=== PATIENT | male | born 1955 | race Caucasian/White ===

== ENCOUNTER 2020-02-16 09:59 | Emergency (ER) | payer MEDICARE, SELFPAY ==
[2020-02-16 10:04] VITALS: PULSE 54; RESP 16; TEMP 36.9; O2SAT 97; BMI 28.4
--- NOTE | 2020-02-16 10:15 | CT_ITS ---
EXAMINATION: CTA OF THE HEAD AND NECK CLINICAL INFORMATION: Headache and confusion. COMPARISON: Head CT from 11/28/2018. TECHNIQUE: Test bolus sequences followed by intravenous administration 70 mL of Omnipaque 350. Helical imaging was performed in the axial plane from the mediastinum to the skull vertex. Delayed postcontrast imaging of the head was also performed. The data was processed at the electroneurodiagnostic technologist's workstation for generation of MIP sequences. Three-dimensional volume rendered reformatted images were also generated at an offline 3-D workstation. Stenoses are assessed in accordance with NASCET criteria unless otherwise indicated. This CT examination was performed using dose optimization techniques as appropriate, variously including the following: *Automated exposure control *Adjustment of mA and/or kV according to patient size (this includes techniques or standardized protocols for targeted exams where dose is matched to indication/reason for exam; i.e. extremities or head) *Use of iterative reconstruction technique DLP: 1731 mGy-cm. FINDINGS: CT head: There is no evidence of acute intracranial hemorrhage or territorial infarction. There is no loss of cruz to white matter differentiation. No abnormal mass effect or midline shift is seen. No extra-axial fluid collections are identified. There is no abnormal enhancement. The ventricles are normal in size. There is no abnormal attenuation within the brain parenchyma. The osseous structures and soft tissues are normal. The mastoid air cells and visualized portions of the paranasal sinuses are well aerated. CTA neck: The imaged aortic arch and origins of the great vessels are normal. The common carotid arteries are widely patent. The carotid bifurcations are normal. The cervical internal carotid arteries are normal. The vertebral arteries opacify normally and are of normal caliber. The soft tissues of the neck are unremarkable. Moderate disc space narrowing with mild endplate osteophyte formation evident at the C5-C6 level. Mild right apical blebs visible. Mild bilateral subsegmental atelectasis within the lungs. CTA head: The intradural vertebral arteries and basilar artery are normal. The posterior cerebral arteries are widely patent. The internal carotid arteries are of normal caliber. The ANTONI and MCA vascular complexes bilaterally are normal. The venous sinuses opacify normally. CT/CT angio head IMPRESSION: Normal CT angiogram of the head and neck. No vessel occlusion or significant stenosis. Imaging findings reported to Dr. Church at 11:25 AM on 02/16/2020
--- NOTE | 2020-02-16 10:15 | XR_ITS ---
EXAMINATION: XR CHEST CLINICAL INFORMATION: Stroke like symptoms. Rule out pneumonia. COMPARISON: Previous chest x-ray July 2018 TECHNIQUE: Frontal view of the chest was obtained. FINDINGS: The cardiac and mediastinal contours are normal. The lungs are clear. There is no pleural effusion or pneumothorax. There are degenerative changes of the spine. XR/XR chest 1V IMPRESSION: No evidence for acute disease in the chest.
--- NOTE | 2020-02-16 10:15 | CT_ITS ---
EXAMINATION: CTA OF THE HEAD AND NECK CLINICAL INFORMATION: Headache and confusion. COMPARISON: Head CT from 11/28/2018. TECHNIQUE: Test bolus sequences followed by intravenous administration 70 mL of Omnipaque 350. Helical imaging was performed in the axial plane from the mediastinum to the skull vertex. Delayed postcontrast imaging of the head was also performed. The data was processed at the medical office technologist's workstation for generation of MIP sequences. Three-dimensional volume rendered reformatted images were also generated at an offline 3-D workstation. Stenoses are assessed in accordance with NASCET criteria unless otherwise indicated. This CT examination was performed using dose optimization techniques as appropriate, variously including the following: *Automated exposure control *Adjustment of mA and/or kV according to patient size (this includes techniques or standardized protocols for targeted exams where dose is matched to indication/reason for exam; i.e. extremities or head) *Use of iterative reconstruction technique DLP: 1731 mGy-cm. FINDINGS: CT head: There is no evidence of acute intracranial hemorrhage or territorial infarction. There is no loss of cruz to white matter differentiation. No abnormal mass effect or midline shift is seen. No extra-axial fluid collections are identified. There is no abnormal enhancement. The ventricles are normal in size. There is no abnormal attenuation within the brain parenchyma. The osseous structures and soft tissues are normal. The mastoid air cells and visualized portions of the paranasal sinuses are well aerated. CTA neck: The imaged aortic arch and origins of the great vessels are normal. The common carotid arteries are widely patent. The carotid bifurcations are normal. The cervical internal carotid arteries are normal. The vertebral arteries opacify normally and are of normal caliber. The soft tissues of the neck are unremarkable. Moderate disc space narrowing with mild endplate osteophyte formation evident at the C5-C6 level. Mild right apical blebs visible. Mild bilateral subsegmental atelectasis within the lungs. CTA head: The intradural vertebral arteries and basilar artery are normal. The posterior cerebral arteries are widely patent. The internal carotid arteries are of normal caliber. The ANTONI and MCA vascular complexes bilaterally are normal. The venous sinuses opacify normally. CT/CT angio neck IMPRESSION: Normal CT angiogram of the head and neck. No vessel occlusion or significant stenosis. Imaging findings reported to Dr. Church at 11:25 AM on 02/16/2020
--- NOTE | 2020-02-16 10:15 | CT_ITS ---
EXAMINATION: CT HEAD WITHOUT CONTRAST (STROKE PROTOCOL) CLINICAL INFORMATION: Stroke protocol. Posterior headache and off-balance COMPARISON: Previous head CT April 2018 TECHNIQUE: Contiguous axial imaging was performed from the skull base to vertex without intravenous administration of contrast. This CT examination was performed using dose optimization techniques as appropriate, variously including the following: *Automated exposure control *Adjustment of mA and/or kV according to patient size (this includes techniques or standardized protocols for targeted exams where dose is matched to indication/reason for exam; i.e. extremities or head) *Use of iterative reconstruction technique DLP: 786 mGy-cm FINDINGS: There is no intracranial hemorrhage, hematoma, or extra-axial fluid collection. The ventricles are normal in size. There is no hydrocephalus, edema, or mass effect. The cruz-white matter differentiation appears symmetric. There is no acute infarct or mass lesion. The calvarium appears intact. There is no pneumocephalus or orbital emphysema. The visualized sinuses and middle ears and mastoid air cells show no significant mucosal thickening. There are no air-fluid levels. CT/CT head for stroke IMPRESSION: Unremarkable exam. This critical result was discussed with Dr. Church at 1028 hours on 02/16/2020. It was ascertained that the content and urgency of the report was understood at the time of direct communication.
--- NOTE | 2020-02-16 10:15 | ECG_ITS ---
Test Reason : WEAKNESS Blood Pressure : / mmHG Vent. Rate : 052 BPM Atrial Rate : 052 BPM P-R Int : 190 ms QRS Dur : 086 ms QT Int : 452 ms P-R-T Axes : 044 040 044 degrees QTc Int : 420 ms Sinus bradycardia Otherwise normal ECG When compared with ECG of 28-NOV-2018 21:03, No significant change was found Referred By: Eliazar Church Electronically Signed By:JOSH PABON
[2020-02-16] MEDS: iohexoL 350 MG/ML 100 ML INFUS..BTL IV (11:08)
[2020-02-16 11:14] LABS: MANUAL DIFF FLAG NO
[2020-02-16 11:16] LABS: Basophils Percent Auto 0.5 % (0-2); Eosinophils Absolute Auto 0.1 X10*3/uL (0.0-0.4); Eosinophils Percent Auto 1.7 % (0-4); Hematocrit 38.8 % (42-52); Hemoglobin 13.3 g/dl (14.0-18.0); Imm Gran Abs Auto 0.01 X10*3/uL (0.00-0.03); Imm Gran Pct Auto 0.2 % (0.0-0.4); Lymphocytes Absolute Auto 1.9 X10*3/uL (1.2-4.9); Lymphocytes Percent Auto 28.4 % (20-40); Mean Corpuscular HGB Conc 34.3 g/dl (31.0-36.0); Mean Corpuscular Hemoglobin 31.2 pg (27.0-33.0); Mean Corpuscular Volume 91.1 fL (80-98); Mean Platelet Volume 10.5 fL (9.4-12.4); Monocytes Absolute Auto 0.6 X10*3/uL (0.1-1.2); Monocytes Percent Auto 8.5 % (2-11); Neutrophils Percent Auto 60.7 % (45-73); Platelet Count 172 X10*3/uL (160-400); Red Blood Count 4.26 X10*6/uL (4.60-5.80); Red Cell Distribution Width 12.4 % (11.0-16.0); White Blood Count 6.6 X10*3/uL (4.8-10.8)
[2020-02-16 11:24] LABS: Partial Thromboplastin Time 33.7 SEC (24.1-38.0)
[2020-02-16 11:39] LABS: Ethanol < 10 mg/dL
[2020-02-16 11:43] LABS: Alanine Aminotransferase 31 U/L (0-40); Albumin Level 3.9 g/dL (3.5-5.0); Alkaline Phosphatase 54 U/L (39-117); Anion Gap 10 (12-20); Aspartate Amino Transferase 25 U/L (5-37); Bilirubin Direct 0.2 mg/dL (0.0-0.5); Bilirubin Total 0.4 mg/dL (0.0-1.0); Blood Urea Nitrogen 16 mg/dL (9-16); Calcium 8.3 mg/dL (8.4-10.2); Carbon Dioxide 26 mmol/L (22-29); Chloride 105 mmol/L (96-108); Creatinine Clr Calc Pharmacy 89.9; Estimated Glomerular Filt Rate > 60; Glucose Random 82 mg/dL (60-115); Potassium 4.3 mmol/l (3.3-5.1); Sodium 137 mmol/L (135-145); Total Protein 6.4 g/dL (6.5-8.0)
[2020-02-16 11:49] LABS: Troponin-I High Sensitivity < 3.5 ng/L (<3.5-35.0)
[2020-02-16 12:00] LABS: Stroke Lab Use COMPLETE
--- NOTE | 2020-02-16 12:07 | ED.GENADULT ---
HPI - General Adult General Chief complaint: Altered Mental Status Stated complaint: feeling disoriented Time Seen by Provider: 02/16/20 10:15 Source: patient and family (, Carlyn) Mode of arrival: ambulatory Limitations: no limitations History of Present Illness HPI narrative: 64-year-old male who was brought emergency department for evaluation of stroke-like symptoms. Information came from the patient and the patient's . The patient has a history of multiple strokes that usually present with headache and confusion. The patient woke up at 2:00 a.m. to walk the dog. He seemed to be confused according to the . The patient went to sleep and then woke up again at 4:00 a.m. with confusion. He was pacing in the halls. He told his that ?something happened and ?I have got to go ?. The patient also appeared to be off balance. He complained of a posterior headache which his states he has had in the past with his strokes. The patient points to the septal area of his head and describes the pain as a throbbing sensation which is constant and moderate in intensity. The patient's symptoms persisted. The patient spoke to his providers at the [facility] and he was advised to go to hospital for evaluation of possible stroke. The patient denied fever, chills, cough, chest pain, shortness of breath, abdominal pain, changes bowel movements, loss of sense of taste or smell. The patient has no known COVID-19 exposures. The patient states that he has residual right arm and right leg weakness from his previous strokes. Related Data Allergies Allergy/AdvReac Type Severity Reaction Status Date / Time dog dander [DOGS] Allergy Mild ITCHY EYES Unverified 11/05/19 15:22 metformin [METFORMIN] Allergy Unknown KIDNEY Unverified 11/05/19 15:22 FAILURE, anaphylaxis Cat/Feline Product Allergy Mild RUNNY NOSE Uncoded 11/05/19 15:22 Derivatives Review of Systems Review of Systems: Yes all other systems are reviewed and are negative Constitutional: Constitutional: Reports as per HPI Eyes: Eyes: Reports as per HPI ENT: Reports as per HPI Cardiovascular: Cardiovascular: Reports as per HPI Respiratory: Respiratory: Reports as per HPI Gastrointestinal: Gastrointestinal: Reports as per HPI Genitourinary: Genitourinary: Reports as per HPI Musculoskeletal: Musculoskeletal: Reports as per HPI Integumentary/Breasts: Skin/Breast: Reports as per HPI Neurologic: Reports as per HPI and Reports Abnormal speech present Psychiatric: Psychiatric: Reports as per HPI Allergic/Immunologic: Allergic/Immunologic: Reports as per HPI [facility] Past Medical History Medical History Bleeding ulcer High cholesterol HTN (hypertension) Hypoglycemia Kidney failure Stroke Surgical History Hx of heart artery stent Social History Social History Advance Directives: No Advance Directives Information Provided: Yes Physical Exam Vital Signs: Vital Signs: Last Vital Signs Temp 98 F 02/16/20 13:09 Pulse 51 02/16/20 13:09 Resp 17 02/16/20 13:09 BP 156/93 H 02/16/20 13:09 Pulse Ox 95 02/16/20 13:09 Body Mass Index 28.4 Const: General: cooperative and no acute distress Orientation/consciousness: oriented to person and oriented to place Limitations: no limitations HENMT: Head: Yes normal to inspection, Yes normocephalic and Yes atraumatic Ears: external ears normal General nose exam: Normal external nose present Face and sinus: Yes normal facial exam Mouth: Normal oral and palatal mucosa present Throat: Yes posterior oropharynx normal Eyes: Periorbital: periorbital findings normal Eyelids: Yes eyelids normal Conjunctivae: conjunctivae normal Sclerae: sclerae normal Corneas: corneas normal Pupils: Equal, round and reactive pupils present Direct Ophthalmoscopy: normal light reflex Neck: Neck: Yes full ROM, Yes no lymphadenopathy, Yes no meningeal signs, Yes trachea midline and Yes supple Chest: Chest palpation & inspection: normal inspection of the chest and normal palpation of entire chest wall Resp: Effort & Inspection: normal respiratory effort and able to speak in complete sentences Auscultation: clear to auscultation bilaterally Cardio: Rate: regular rate Rhythm: regular rhythm Heart sounds: S1 normal heart sound present, S2 normal heart sound present and no murmurs GI: Inspection: Yes normal to inspection Palpation (GI): Soft to palpation, nontender, no guarding, not rigid and No hepatosplenomegaly present : General: Yes no CVA tenderness Back/Spine/Pelvis: Back: no CVA tenderness Cervical Spine: normal cervical lordosis Thoracic/Lumbar Spine: thoracic and lumbar spine normal to inspection Skin: Lesions: no lesions Rashes: no rashes Wounds: no wounds Neuro: General: oriented to person, oriented to place and no meningeal signs Cranial nerves: Yes Equal, round and reactive pupils present Cognition (Neuro): normal cognition Speech: Abnormal speech present Motor exam (neuro): Other motor observations present (Slight weakness of the right upper and right lower extremity compared to th) Extrem: General: Yes normal to inspection and Yes full ROM Psych: Appearance: well kempt Mental Status: mental status grossly normal Speech and movement: Normal speech and movement present Affect: normal affect Attitude: cooperative Thought process: Normal thought process present Thought content: Normal thought content present NIH Stroke Scale Internal: Initial- Upon Arrival Level of Consciousness: Alert Level of Consciousness Questions: Answers both questions correctly Level of Consciousness Commands: Performs both tasks correctly Best Gaze: Normal Visual: No visual loss Facial Palsy: Normal Motor Arm (Right): No drift Motor Arm (Left): No drift Motor Leg (Right): No drift Motor Leg (Left): No drift Limb Ataxia: Absent Sensory: Normal Best Language: No aphasia Dysarthia: Normal Extinction and Inattention: No abnormality Score: 0 Course Course Course Narrative: 64-year-old male with a history of multiple strokes in the past with residual right upper and lower extremity weakness from previous strokes who presents to the emergency department for evaluation of posterior headache, confusion and difficulty with his balance which began at 2:00 a.m. on the day of arrival. According to the patient and his , these symptoms are similar to his previous stroke-like symptoms. The patient's physical examination did reveal some slight weakness of the right upper and right lower extremity compared to the left however his NIH stroke scale was 0. The patient's CT scan of the head revealed no acute stroke or bleeding. CTA of the head and neck revealed no acute clot or other abnormality. Laboratory evaluation reveals slight elevation in the CK of 302. I did discuss the patient's presentation with the covering neurologist Dr. Skelton who recommended the patient be admitted for MRI and further evaluation for possible stroke. I did discuss this with the patient and his and they agree to admission. I will discuss the patient's presentation with the covering hospitalist. 1323: I did discuss the patient's presentation with the covering hospitalist, nurse practitioner jesus Barker. She evaluated the patient in the patient would like to go home at this time. I did re-evaluate the patient. The patient is back to his baseline. This time, I do believe that the patient can be discharged home and he does agree to return to emergency department if his symptoms get worse or he develops any new symptoms that are concerning to him or his . Medical Decision Making Lab Data Result diagrams: 02/16/20 11:02/16/20 11:09 Labs: Lab Results 02/16/20 02/16/20 02/16/20 Range/Units 11:09 11:09 11:09 WBC 6.6 (4.8-10.8) X10*3/uL RBC 4.26 L (4.60-5.80) X10*6/uL Hgb 13.3 L (14.0-18.0) g/dl Hct 38.8 L (42-52) % MCV 91.1 (80-98) fL MCH 31.2 (27.0-33.0) pg MCHC 34.3 (31.0-36.0) g/dl RDW 12.4 (11.0-16.0) % Plt Count 172 (160-400) X10*3/uL MPV 10.5 (9.4-12.4) fL Immature Gran % (Auto) 0.2 (0.0-0.4) % Neut % (Auto) 60.7 (45-73) % Lymph % (Auto) 28.4 (20-40) % [place] % (Auto) 8.5 (2-11) % Eos % (Auto) 1.7 (0-4) % Baso % (Auto) 0.5 (0-2) % Lymph # (Auto) 1.9 (1.2-4.9) X10*3/uL [place] # (Auto) 0.6 (0.1-1.2) X10*3/uL Eos # (Auto) 0.1 (0.0-0.4) X10*3/uL Baso # (Auto) 0.0 (0.0-0.2) X10*3/uL Abs Immat Gran (auto) 0.01 (0.00-0.03) X10*3/uL Absolute Neuts (auto) 4.0 (2.0-8.3) X10*3/uL Absolute Nucleated RBC 0.000 (0.0-0.012) X10*3/uL Nucleated RBC % (auto) 0.0 (0.0-0.2) /100WBC PT 12.0 (10.8-13.0) SEC INR 1.0 (0.9-1.1) APTT 33.7 (24.1-38.0) SEC Sodium 137 (135-145) mmol/L Potassium 4.3 (3.3-5.1) mmol/l Chloride 105 (96-108) mmol/L Carbon Dioxide 26 (22-29) mmol/L Anion Gap 10 L (12-20) BUN 16 (9-16) mg/dL Creatinine 0.99 (0.5-1.4) mg/dL Estim Creat Clear Calc 89.9 Estimated GFR > 60 POC Glucose (60-115) mg/dL Random Glucose 82 (60-115) mg/dL Calcium 8.3 L (8.4-10.2) mg/dL Total Bilirubin 0.4 (0.0-1.0) mg/dL Direct Bilirubin 0.2 (0.0-0.5) mg/dL AST 25 (5-37) U/L ALT 31 (0-40) U/L Alkaline Phosphatase 54 (39-117) U/L Total Creatine Kinase 302 H (38-174) U/L Troponin I High Sens (<3.5-35.0) ng/L Total Protein 6.4 L (6.5-8.0) g/dL Albumin 3.9 (3.5-5.0) g/dL Ethyl Alcohol mg/dL 02/16/20 02/16/20 02/16/20 Range/Units 11:09 11:09 13:08 WBC (4.8-10.8) X10*3/uL RBC (4.60-5.80) X10*6/uL Hgb (14.0-18.0) g/dl Hct (42-52) % MCV (80-98) fL MCH (27.0-33.0) pg MCHC (31.0-36.0) g/dl RDW (11.0-16.0) % Plt Count (160-400) X10*3/uL MPV (9.4-12.4) fL Immature Gran % (Auto) (0.0-0.4) % Neut % (Auto) (45-73) % Lymph % (Auto) (20-40) % [place] % (Auto) (2-11) % Eos % (Auto) (0-4) % Baso % (Auto) (0-2) % Lymph # (Auto) (1.2-4.9) X10*3/uL [place] # (Auto) (0.1-1.2) X10*3/uL Eos # (Auto) (0.0-0.4) X10*3/uL Baso # (Auto) (0.0-0.2) X10*3/uL Abs Immat Gran (auto) (0.00-0.03) X10*3/uL Absolute Neuts (auto) (2.0-8.3) X10*3/uL Absolute Nucleated RBC (0.0-0.012) X10*3/uL Nucleated RBC % (auto) (0.0-0.2) /100WBC PT (10.8-13.0) SEC INR (0.9-1.1) APTT (24.1-38.0) SEC Sodium (135-145) mmol/L Potassium (3.3-5.1) mmol/l Chloride (96-108) mmol/L Carbon Dioxide (22-29) mmol/L Anion Gap (12-20) BUN (9-16) mg/dL Creatinine (0.5-1.4) mg/dL Estim Creat Clear Calc Estimated GFR POC Glucose 80 (60-115) mg/dL Random Glucose (60-115) mg/dL Calcium (8.4-10.2) mg/dL Total Bilirubin (0.0-1.0) mg/dL Direct Bilirubin (0.0-0.5) mg/dL AST (5-37) U/L ALT (0-40) U/L Alkaline Phosphatase (39-117) U/L Total Creatine Kinase (38-174) U/L Troponin I High Sens < 3.5 (<3.5-35.0) ng/L Total Protein (6.5-8.0) g/dL Albumin (3.5-5.0) g/dL Ethyl Alcohol < 10 mg/dL Discharge Plan Discharge Clinical Impression: Brain TIA Altered mental status Qualifiers: Altered mental status type: unspecified Qualified Code(s): R41.82 - Altered mental status, unspecified Patient Disposition: Home, Self-Care Instructions: Transient Ischemic Attack (ED) Additional Instructions: The CT scan of your head revealed no bleeding or large stroke at this time. The CTA head and neck with contrast revealed no large blood clots causing a stroke. Your blood work was unremarkable. At this time, it is possible that you may have had a small stroke versus a transient ischemic attack. Since your symptoms have completely resolved and you have been worked up multiple times in the past for a stroke, I believe it is safe to send you home and you can follow-up with your doctor for further evaluation and treatment. Follow-up with your doctor in 2 days. Please return to the emergency department if your symptoms get worse or if you develop any symptoms that are concerning to you.
[2020-02-16 13:09] VITALS: BP 156/93; PULSE 51; RESP 17; TEMP 36.6; O2SAT 95
[2020-02-16 13:15] LABS: Glucose, Whole Blood 80 mg/dL (60-115)
== END 2020-02-18 09:04 | disposition home or self-care (01) ==
PROVIDERS: Emergency Provider Emergency Medicine Emergency Medical Services; PCP Internal Medicine
DX: G45.9 Transient cerebral ischemic attack, unspecified (principal); R41.82 Altered mental status, unspecified; I10 Essential (primary) hypertension; Z79.899 Other long term (current) drug therapy
CPT/HCPCS: 36415; 70450; 70496; 70498; 71045; 80048; 80076; 80320; 82550; 82947; 84484; 85025; 85610; 85730; 93005; 99283; 99284; Q9967

== ENCOUNTER 2021-03-13 11:07 | Day surgery (SDC) | payer MEDICARE, SELFPAY ==
[2021-03-07 14:09] VITALS: BMI 33.5
--- NOTE | 2021-03-10 10:03 | HO.ANESPROP2 ---
Documented by User: Teresa Ambrocio NP 03/10/21 10:04 HPI - Anesthesia Eval Consult details Narrative: 65yo M for Upper Endoscopy [facility] Past Medical History Medical History Back pain Bleeding ulcer Chronic renal insufficiency High cholesterol HTN (hypertension) Hypoglycemia Myocardial infarction Neurostimulator device in situ Sleep apnea Stroke Surgical History Surgical History History of back surgery History of colon surgery History of esophagogastroduodenoscopy (EGD) Hx of abdominal surgery Hx of gastric bypass Hx of hand surgery Hx of heart artery stent Hx of hernia repair Hx of knee surgery Social History Social History Are you a primary outdoor emergency care technician to a significant other at home: No Do you presently have visiting nurse or other home services: No Patient Tobacco Use Status: Former Tobacco user Quit Date: >10 yr ago Tobacco use type: Cigarette Use of substances other than those prescribed or required for medical reasons: No Have you been hit, kicked, punched, or otherwise hurt by someone within the past year? If so, by whom?: No Advance Directives: Yes (is his ) Advance Directives Information Provided: Yes Advance Directives on File: Yes Advance Directives Date on File: 08/05/18 Meds Allergies Allergy/AdvReac Type Severity Reaction Status Date / Time animal dander Allergy Intermediate itchy eyes Verified 03/07/21 10:58 / runny nose metformin [METFORMIN] Allergy Unknown KIDNEY Verified 03/13/21 11:38 FAILURE, anaphylaxis Home Medications Medication Instructions Recorded Confirmed Last Taken Type aspirin 81 mg tablet,delayed 81 mg PO DAILY 03/07/21 03/13/21 03/12/21 History release atorvastatin 40 mg tablet 40 mg PO BEDTIME 03/07/21 03/07/21 Unknown History clopidogrel 75 mg tablet 75 mg PO DAILY 03/07/21 03/13/21 03/09/21 History dicyclomine 10 mg capsule 10 mg PO QID 03/07/21 03/07/21 Unknown History ferrous gluconate 256 mg (28 mg 256 mg PO DAILY 03/07/21 03/07/21 Unknown History iron) tablet fluoxetine 20 mg tablet 20 mg PO DAILY 03/07/21 03/07/21 Unknown History gabapentin 400 mg tablet 1,200 mg PO TID 03/07/21 03/07/21 Unknown History magnesium oxide 400 mg PO DAILY 03/07/21 03/07/21 Unknown History methocarbamol 750 mg tablet 750 mg PO BID PRN 03/07/21 03/07/21 Unknown History metoprolol tartrate 25 mg tablet 1 tab PO BID 03/07/21 03/13/21 03/13/21 07:00 History multivitamin 1 tab PO DAILY 03/07/21 03/07/21 Unknown History omega-3 fatty acids-fish oil 684 1 cap PO DAILY 03/07/21 03/07/21 Unknown History mg-1,200 mg capsule,delayed release omeprazole 40 mg capsule,delayed 40 mg PO TID 03/07/21 03/07/21 Unknown History release sucralfate 1 gram tablet 1 g PO BID 03/07/21 03/07/21 Unknown History trazodone 100 mg tablet 100 mg PO BEDTIME 03/07/21 03/07/21 Unknown History Exam Exam Date and Time: March 10, 2021 1003 Height,Weight and Vital Signs: Height 5 ft 11 in Weight 108.862 kg Assessment and Plan Assessment Anesthesia Assessment: Chart Reviewed Documented by User: Andrew Glasgow MD 03/13/21 12:26 [facility] Past Medical History Medical History Back pain Bleeding ulcer Chronic renal insufficiency High cholesterol HTN (hypertension) Hypoglycemia Myocardial infarction Neurostimulator device in situ Sleep apnea Stroke Family History Family history of problems with anesthesia: No Surgical History Surgical History History of back surgery History of colon surgery History of esophagogastroduodenoscopy (EGD) Hx of abdominal surgery Hx of gastric bypass Hx of hand surgery Hx of heart artery stent Hx of hernia repair Hx of knee surgery History of Problems with Anesthesia: No Social History Social History Are you a primary outdoor emergency care technician to a significant other at home: No Do you presently have visiting nurse or other home services: No Patient Tobacco Use Status: Former Tobacco user Quit Date: >10 yr ago Tobacco use type: Cigarette Use of substances other than those prescribed or required for medical reasons: No Have you been hit, kicked, punched, or otherwise hurt by someone within the past year? If so, by whom?: No Advance Directives: Yes (is his ) Advance Directives Information Provided: Yes Advance Directives on File: Yes Advance Directives Date on File: 08/05/18 Meds Allergies Allergy/AdvReac Type Severity Reaction Status Date / Time animal dander Allergy Intermediate itchy eyes Verified 03/07/21 10:58 / runny nose metformin [METFORMIN] Allergy Unknown KIDNEY Verified 03/13/21 11:38 FAILURE, anaphylaxis Home Medications Medication Instructions Recorded Confirmed Last Taken Type aspirin 81 mg tablet,delayed 81 mg PO DAILY 03/07/21 03/13/21 03/12/21 History release atorvastatin 40 mg tablet 40 mg PO BEDTIME 03/07/21 03/07/21 Unknown History clopidogrel 75 mg tablet 75 mg PO DAILY 03/07/21 03/13/21 03/09/21 History dicyclomine 10 mg capsule 10 mg PO QID 03/07/21 03/07/21 Unknown History ferrous gluconate 256 mg (28 mg 256 mg PO DAILY 03/07/21 03/07/21 Unknown History iron) tablet fluoxetine 20 mg tablet 20 mg PO DAILY 03/07/21 03/07/21 Unknown History gabapentin 400 mg tablet 1,200 mg PO TID 03/07/21 03/07/21 Unknown History magnesium oxide 400 mg PO DAILY 03/07/21 03/07/21 Unknown History methocarbamol 750 mg tablet 750 mg PO BID PRN 03/07/21 03/07/21 Unknown History metoprolol tartrate 25 mg tablet 1 tab PO BID 03/07/21 03/13/21 03/13/21 07:00 History multivitamin 1 tab PO DAILY 03/07/21 03/07/21 Unknown History omega-3 fatty acids-fish oil 684 1 cap PO DAILY 03/07/21 03/07/21 Unknown History mg-1,200 mg capsule,delayed release omeprazole 40 mg capsule,delayed 40 mg PO TID 03/07/21 03/07/21 Unknown History release sucralfate 1 gram tablet 1 g PO BID 03/07/21 03/07/21 Unknown History trazodone 100 mg tablet 100 mg PO BEDTIME 03/07/21 03/07/21 Unknown History Exam Airway Mallampati Class: III TM Dist: >3cm Neck ROM: Full Assessment and Plan Assessment Anesthesia Assessment: Anesthesia Plan Discussed Final Anesthetic Review Family History of Problems with Anesthesia: No History of Problems with Anesthesia: No NPO: Yes ASA Class: III Final Preanesthetic Review: No Changes in Pt Med Stat, Meds/Allgs Chart Reviewed, Consent Obtained/Reviewed and Anes Risks/Benef Reviewed Patient Risk: Intermediate Procedure Risk: Low Anesthetic Plan Anesthetic Plan: MAC: Disposition: Standard PACU
[2021-03-13 11:42] VITALS: BP 140/84; PULSE 56; RESP 16; TEMP 35.9; O2SAT 96
[2021-03-13] MEDS: Lactated Ringers 1,000 ML 100 ML IVCONT (11:48)
[2021-03-13 13:34] VITALS: BP 130/74; PULSE 54; RESP 18; TEMP 36.4; O2SAT 94
--- NOTE | 2021-03-13 13:36 | P.CONAN_ITS ---
[facility] Past Medical History Medical History Back pain Bleeding ulcer Chronic renal insufficiency High cholesterol HTN (hypertension) Hypoglycemia Myocardial infarction Neurostimulator device in situ Sleep apnea Stroke Family History Family history of problems with anesthesia: No Surgical History Surgical History History of back surgery History of colon surgery History of esophagogastroduodenoscopy (EGD) Hx of abdominal surgery Hx of gastric bypass Hx of hand surgery Hx of heart artery stent Hx of hernia repair Hx of knee surgery History of Problems with Anesthesia: No Social History Social History Are you a primary healthcare facility administrator to a significant other at home: No Do you presently have visiting nurse or other home services: No Patient Tobacco Use Status: Former Tobacco user Quit Date: >10 yr ago Tobacco use type: Cigarette Use of substances other than those prescribed or required for medical reasons: No Have you been hit, kicked, punched, or otherwise hurt by someone within the past year? If so, by whom?: No Advance Directives: Yes (is his ) Advance Directives Information Provided: Yes Advance Directives on File: Yes Advance Directives Date on File: 08/05/18 Meds Allergies Allergy/AdvReac Type Severity Reaction Status Date / Time animal dander Allergy Intermediate itchy eyes Verified 03/07/21 10:58 / runny nose metformin [METFORMIN] Allergy Unknown KIDNEY Verified 03/13/21 11:38 FAILURE, anaphylaxis Active Medications: Current Medications Lactated Ringer's (Lr) 1,000 mls @ 100 mls/hr IVCONT .Q10H KEITH Last Admin: 03/13/21 11:48 Dose: 100 mls/hr Documented by: Home Medications Medication Instructions Recorded Confirmed Last Taken Type aspirin 81 mg tablet,delayed 81 mg PO DAILY 03/07/21 03/13/21 03/12/21 History release atorvastatin 40 mg tablet 40 mg PO BEDTIME 03/07/21 03/07/21 Unknown History clopidogrel 75 mg tablet 75 mg PO DAILY 03/07/21 03/13/21 03/09/21 History dicyclomine 10 mg capsule 10 mg PO QID 03/07/21 03/07/21 Unknown History ferrous gluconate 256 mg (28 mg 256 mg PO DAILY 03/07/21 03/07/21 Unknown History iron) tablet fluoxetine 20 mg tablet 20 mg PO DAILY 03/07/21 03/07/21 Unknown History gabapentin 400 mg tablet 1,200 mg PO TID 03/07/21 03/07/21 Unknown History magnesium oxide 400 mg PO DAILY 03/07/21 03/07/21 Unknown History methocarbamol 750 mg tablet 750 mg PO BID PRN 03/07/21 03/07/21 Unknown History metoprolol tartrate 25 mg tablet 1 tab PO BID 03/07/21 03/13/21 03/13/21 07:00 History multivitamin 1 tab PO DAILY 03/07/21 03/07/21 Unknown History omega-3 fatty acids-fish oil 684 1 cap PO DAILY 03/07/21 03/07/21 Unknown History mg-1,200 mg capsule,delayed release omeprazole 40 mg capsule,delayed 40 mg PO TID 03/07/21 03/07/21 Unknown History release sucralfate 1 gram tablet 1 g PO BID 03/07/21 03/07/21 Unknown History trazodone 100 mg tablet 100 mg PO BEDTIME 03/07/21 03/07/21 Unknown History Exam Exam Date and Time: March 13, 2021 1336 Height,Weight and Vital Signs: Height 5 ft 11 in Weight 108.862 kg Last Vital Signs Temp 97.5 F 03/13/21 13:34 Pulse 54 03/13/21 13:34 Resp 18 03/13/21 13:34 BP 130/74 03/13/21 13:34 Pulse Ox 94 03/13/21 13:34 Airway Mallampati Class: II Neck ROM: Full Denture: Upper and Lower Assessment and Plan Assessment Anesthesia Assessment: Anesthesia Plan Discussed, Smoking Cess. Discussed and Chart Reviewed Final Anesthetic Review Family History of Problems with Anesthesia: No History of Problems with Anesthesia: No NPO: Yes ASA Class: II Final Preanesthetic Review: No Changes in Pt Med Stat, Meds/Allgs Chart Reviewed, Consent Obtained/Reviewed and Anes Risks/Benef Reviewed Patient Risk: Intermediate Procedure Risk: Low Anesthetic Plan Anesthetic Plan: MAC: Disposition: Standard PACU
--- NOTE | 2021-03-13 13:38 | P.BOP_ITS ---
Brief Operative Note Date of Service: 03/13/21 Pre-op diagnosis: Chest discomfort, GERD Post-op diagnosis: other (Hiatal hernia) Procedure: EGD Surgeon: Gilbert Mccloud Anesthesia: MAC Was an [employer] used for this Procedure?: No Estimated blood loss (mL): 0 Pathology: none sent Condition: stable Disposition: PACU
[2021-03-13 13:50] VITALS: BP 137/79; PULSE 65; RESP 18; TEMP 36.1; O2SAT 98
--- NOTE | 2021-03-14 00:47 | OP_ITS ---
SURGEON: Gilbert Mccloud MD INDICATIONS: Patient presents for evaluation of chest discomfort, gastroesophageal reflux, and history of anastomotic ulcers. Full consent has been obtained from him for this, including risks of bleeding and perforation. PREOPERATIVE DIAGNOSIS: POSTOPERATIVE DIAGNOSIS: PROCEDURE PERFORMED: Esophagogastroduodenoscopy. ESTIMATED BLOOD LOSS: COMPLICATIONS: ANESTHESIA: Monitored anesthesia care. ASSISTANTS: SPECIMENS: PREOPERATIVE DIAGNOSES: Gastroesophageal reflux, chest pain, and history of anastomotic ulcers. POSTOPERATIVE DIAGNOSES: Gastroesophageal reflux, chest pain, and history of anastomotic ulcers, hiatal hernia. No ulcers at the anastomosis, but some scarring from previous ulcer disease. DESCRIPTION OF PROCEDURE: Patient was placed in the left lateral decubitus position. The Olympus video gastroscope was passed in the posterior oropharynx and upper esophagus under direct vision. The scope was passed slowly to the distal esophagus. The gastroesophageal junction appeared at 36 cm. There was no sign of any esophagitis, Escobar's esophagus, nor any other abnormality. The scope was advanced into the stomach. There was a small hiatal hernia. The hiatal hernia mucosa appeared normal. Scope was advanced to the anastomosis. This was widely patent and allowed easy passage into the small bowel. The small bowel mucosa appeared normal. The anastomosis itself had some scarring consistent with his previous ulcers, but there was no sign of any active ulcer disease. There was no mass nor stricture. The gastric remnant appeared normal both in the forward viewing and retroflexed positions. The scope was straightened and withdrawn back into the esophagus. The esophageal mucosa appeared normal. The scope was withdrawn from the patient. He tolerated the procedure well and was returned to recovery area in stable condition. IMPRESSION: 1. Hiatal hernia. 2. Normal anastomosis other than some scarring from previous ulcer disease. PLAN: He has beeen advised to continue his omeprazole and sucralfate in regard to his previous history of upper GI bleeds from anastomotic ulcers. I did advise him to see me in several months for a followup visit as well. At that time, we can schedule him for his followup screening colonoscopy. He was advised to resume his Plavix and aspirin today. Overall, I did not see any pathology that would account for his chest pain and he was advised to follow up with his embedder, Dr. Lobato, in that regard. Another possibility might be that of esophageal spasm as he does report relief with SL NTG. He may benefit from the addition of a Calcium channel roldan in regard to the possibility of esophageal spasm, but I would leave that up to Dr. Lobato. If any further cardiac workup, i.e. a cardiac catheterization, is negative then we might want to consider esophageal motility studies to assess for any underlying esophgeal motility abnormality with esophageal spasm. This has all been discussed with his in detail. MD ROXANNA Howard/CHARLES / [id number] MTDD
== END 2021-03-13 14:29 | disposition home or self-care (01) ==
PROVIDERS: PCP Internal Medicine; Visit Provider Internal Medicine
PROC: 0DJ08ZZ Inspection of Upper Intestinal Tract, Via Natural or Artificial Opening Endoscopic (ICD-10-PCS; CPT 43235; principal; 2021-03-13 12:00)
DX: K21.9 Gastro-esophageal reflux disease without esophagitis (principal); R07.9 Chest pain, unspecified; Z98.0 Intestinal bypass and anastomosis status; K44.9 Diaphragmatic hernia without obstruction or gangrene; Z87.11 Personal history of peptic ulcer disease; I12.9 Hypertensive chronic kidney disease with stage 1 through stage 4 chronic kidney disease, or unspecified chronic kidney disease; N18.30 Chronic kidney disease, stage 3 unspecified; I25.10 Atherosclerotic heart disease of native coronary artery without angina pectoris; Z98.61 Coronary angioplasty status; G47.33 Obstructive sleep apnea (adult) (pediatric); Z79.899 Other long term (current) drug therapy; Z79.82 Long term (current) use of aspirin; Z87.891 Personal history of nicotine dependence; Z99.89 Dependence on other enabling machines and devices
CPT/HCPCS: 43235; J2250

== ENCOUNTER → 2021-04-27 10:42 | Outpatient (BNVA) | payer MEDICARE, SELFPAY | PROVIDERS: PCP Internal Medicine; Visit Provider Internal Medicine | DX: G47.33 Obstructive sleep apnea (adult) (pediatric) (principal); Z99.89 Dependence on other enabling machines and devices | CPT/HCPCS: 99212 ==

== ENCOUNTER → 2021-08-03 11:19 | Outpatient (BNVA) | payer MEDICARE, SELFPAY | PROVIDERS: PCP Internal Medicine; Visit Provider Internal Medicine | DX: G47.33 Obstructive sleep apnea (adult) (pediatric) (principal); Z99.89 Dependence on other enabling machines and devices | CPT/HCPCS: 99212 ==

== ENCOUNTER 2021-09-24 14:57 | Emergency (ER) | payer MEDICARE, SELFPAY ==
[2021-09-24 15:26] VITALS: BP 134/77; PULSE 58; RESP 18; TEMP 36.6; O2SAT 100; BMI 32.1
--- NOTE | 2021-09-24 21:07 | ED_ITS ---
HPI - Wound/Laceration General Chief Complaint: Wound/Laceration Stated Complaint: Finger inj Time Seen by Provider: 09/24/21 21:06 Source: patient Mode of arrival: ambulatory Limitations: no limitations History of Present Illness HPI narrative: 65-year-old male presenting from home with complaints of pain and swelling to the left ring finger. Patient tells me that 3 days ago he cut himself on a mandoline, at this time he is experiencing pain, swelling and discomfort to the area. Denies numbness or tingling, no foreign body sensation. Denies fevers, chills. Patient is not up-to-date on a tetanus shot. Onset (ago): day(s) (3) Location: other (left 4th finger ) Place: home Patient tetanus UTD: No Context: accidental Related Data Home Medications Medication Instructions Recorded Confirmed aspirin 81 mg tablet,delayed 81 mg PO DAILY 03/07/21 04/27/21 release clopidogrel 75 mg tablet 75 mg PO DAILY 03/07/21 04/27/21 dicyclomine 10 mg capsule 10 mg PO QID 03/07/21 04/27/21 ferrous gluconate 256 mg (28 mg 256 mg PO DAILY 03/07/21 04/27/21 iron) tablet fluoxetine 20 mg tablet 20 mg PO DAILY 03/07/21 04/27/21 gabapentin 400 mg tablet 1,200 mg PO TID 03/07/21 04/27/21 magnesium oxide 400 mg PO DAILY 03/07/21 04/27/21 methocarbamol 750 mg tablet 750 mg PO BID PRN Pain 03/07/21 04/27/21 metoprolol tartrate 25 mg tablet 1 tab PO BID 03/07/21 04/27/21 multivitamin 1 tab PO DAILY 03/07/21 04/27/21 omega-3 fatty acids-fish oil 684 1 cap PO DAILY 03/07/21 04/27/21 mg-1,200 mg capsule,delayed release omeprazole 40 mg capsule,delayed 40 mg PO TID 03/07/21 04/27/21 release sucralfate 1 gram tablet 1 g PO BID 03/07/21 04/27/21 trazodone 100 mg tablet 100 mg PO BEDTIME 03/07/21 04/27/21 atorvastatin 40 mg tablet 80 mg PO BEDTIME 04/27/21 04/27/21 bupropion HCl 300 mg 24 hr tablet, 300 mg PO QAM 04/27/21 04/27/21 extended release isosorbide mononitrate 30 mg 30 mg PO DAILY 04/27/21 04/27/21 tablet,extended release 24 hr losartan 100 mg tablet 100 mg PO DAILY 04/27/21 04/27/21 Previous Rx's Medication Instructions Recorded cephalexin 500 mg tablet 500 mg PO Q6H 10 days #40 tabs 09/24/21 doxycycline hyclate 100 mg capsule 100 mg PO BID 10 days #20 caps 09/24/21 Allergies Allergy/AdvReac Type Severity Reaction Status Date / Time animal dander Allergy Intermediate itchy eyes Verified 08/03/21 11:58 / runny nose metformin [METFORMIN] Allergy Unknown KIDNEY Verified 08/03/21 11:58 FAILURE, anaphylaxis Review of Systems Review of Systems: Constitutional : No Fever, No Chills, Cardiovascular : No Chest Pain, No SOB Respiratory : No Dyspnea Gastrointestinal : No abdominal pain Musculoskeletal : No Joint Swelling Skin : No rash, positive skin laceration Neuro : No Weakness, No Numbness Psych : No SI/HI Yes all other systems are reviewed and are negative [facility] Past Medical History Attestation statement: The following information was validated with the patient. Source: old records reviewed and nursing notes reviewed Medical History Back pain Bleeding ulcer Chronic renal insufficiency High cholesterol HTN (hypertension) Hypoglycemia Myocardial infarction Neurostimulator device in situ Sleep apnea Stroke Surgical History History of back surgery History of colon surgery History of esophagogastroduodenoscopy (EGD) Hx of abdominal surgery Hx of gastric bypass Hx of hand surgery Hx of heart artery stent Hx of hernia repair Hx of knee surgery Social History Social History Are you a primary school childcare attendant to a significant other at home: No Do you presently have visiting nurse or other home services: No Patient Tobacco Use Status: Former Tobacco user Quit Date: >10 yr ago Tobacco use type: Cigarette Advance Directives Date on File: 08/05/18 Physical Exam Vital Signs: Vital Signs: Last Vital Signs Temp 97.8 F 09/24/21 15:26 Pulse 58 09/24/21 15:26 Resp 18 09/24/21 15:26 BP 134/77 09/24/21 15:26 Pulse Ox 100 09/24/21 15:26 O2 Del Method 09/24/21 15:26 BMI result Body Mass Index 32.1 vss Appearance: Alert.? Oriented X3.? No acute distress.? Head: Normocephalic, atraumatic, no step-offs or deformities Eyes: Pupils equal, round and reactive to light.? Neck: Normal inspection.? Neck supple.? CVS: Normal heart rate and rhythm.? Pulses normal.? Respiratory: No respiratory distress.? Breath sounds normal.? Abdomen: Soft and nontender.? Skin: Skin warm and dry.? Normal skin color.? Normal skin turgor.? Extremities: No lower extremity edema.? No calf ttp. 5/5 strength to bilateral upper and lower extremities + 2 cm laceration to the left ring finger dorsal aspect, appears to be healing at this time. Some pain with range of motion of 4th finger on the left hand however full range of motion. Fourth digit with overlying erythema and calor on the left hand. Normal right hand. No streaking noted bilaterally. Full range of motion to wrist. Capillary refill less than 2 seconds to bilateral upper extremities Neuro: Oriented X 3.? No motor deficit.? No sensory deficit. CN 2-12 intact Course Reevaluation(s) Reevaluation #1: Area was well cleansed, glued. Patient tolerated procedure well. He will be discharged home on doxycycline and Keflex. Advised to return with new or worsening symptoms. Tetanus shot given. Advised patient to follow-up with PCP and return with new or worsening symptoms. Time: 21:11 MDM - Wound/Laceration [facility] Narrative Medical decision making narrative: [age] Year old male presents with laceration x3 days cut himself on a mandoline not up-to-date on a tetanus shot Physical examination significant for 2 cm laceration to the left ring finger dorsal aspect, appears to be healing at this time. Some pain with range of motion of 4th finger on the left hand however full range of motion. Fourth digit with overlying erythema and calor on the left hand. Normal right hand. No streaking noted bilaterally. Full range of motion to wrist. Capillary refill less than 2 seconds to bilateral upper extremities Plan at this time is to clean, then glued the area. Patient will be updated on his tetanus shot. Medical Records Attestation: I reviewed the patient's medical records. Lab Data Attestation: I reviewed the patient's lab results. Critical Care Time Critical Care Time Critical Care Time: No Discharge Plan Discharge Clinical Impression: Laceration Patient Disposition: Home, Self-Care Additional Instructions: Take your medications as prescribed. If you were prescribed antibiotics today, it is important that you take your medication to their entirety, do not skip any doses, do not finish them early. Follow-up with your primary care provider this week. Return to the emergency department with new or worsening symptoms. Such as fevers, chills, chest pain, shortness of breath, nausea, vomiting, dizziness, headache, vision changes, lethargy In case of emergency call 911 Prescriptions: New cephalexin 500 mg tablet 500 mg PO Q6H 10 Days Qty: 40 0RF doxycycline hyclate 100 mg capsule 100 mg PO BID 10 Days Qty: 20 0RF No Action multivitamin Tablet 1 tab PO DAILY sucralfate 1 gram Tablet 1 g PO BID clopidogrel 75 mg Tablet 75 mg PO DAILY omeprazole 40 mg capsule,delayed release(DR/EC) 40 mg PO TID aspirin [Aspirin Low-Strength] 81 mg Tablet,Delayed Release (Dr/Ec) 81 mg PO DAILY methocarbamol 750 mg Tablet 750 mg PO BID PRN (Reason: Pain) trazodone 100 mg Tablet 100 mg PO BEDTIME fluoxetine 20 mg Tablet 20 mg PO DAILY dicyclomine 10 mg Capsule 10 mg PO QID metoprolol tartrate 25 mg tablet 1 tab PO BID gabapentin 400 mg Tablet 1,200 mg PO TID [place] 3 Fish Oil 684-1,200 mg Capsule,Delayed Release(Dr/Ec) 1 cap PO DAILY ferrous gluconate 256 mg (28 mg iron) Tablet 256 mg PO DAILY magnesium oxide 400 mg magnesium Tablet 400 mg PO DAILY atorvastatin 40 mg tablet 80 mg PO BEDTIME isosorbide mononitrate 30 mg tablet extended release 24 hr 30 mg PO DAILY bupropion HCl 300 mg tablet extended release 24 hr 300 mg PO QAM losartan 100 mg tablet 100 mg PO DAILY Referrals: Luis F Benedict DO [Primary Care Provider] - 2 days
[2021-09-24] MEDS: Diphth,Pertus(ACell),Tet Adult 0.5 ML SYRINGE IM (21:52)
== END 2021-09-24 21:59 | disposition home or self-care (01) ==
PROVIDERS: Emergency Provider Student in an Organized Health Care Education/Training Program; PCP Internal Medicine
DX: S61.215A Laceration without foreign body of left ring finger without damage to nail, initial encounter (principal); W27.4XXA Contact with kitchen utensil, initial encounter; Y93.9 Activity, unspecified; Y92.010 Kitchen of single-family (private) house as the place of occurrence of the external cause; Y99.9 Unspecified external cause status
CPT/HCPCS: 12001; 90471; 90715; 99282; 99284

== ENCOUNTER 2021-10-16 06:41 | Day surgery (SDC) | payer MEDICARE, SELFPAY ==
[2021-10-16 06:46] VITALS: BMI 32.3
[2021-10-16 07:17] VITALS: BP 152/84; PULSE 47; RESP 18; TEMP 36.2; O2SAT 96
[2021-10-16] MEDS: Lactated Ringers 1,000 ML 50 ML IVCONT (07:24)
--- NOTE | 2021-10-16 07:37 | HO.ANESPROP2 ---
HPI - Anesthesia Eval Consult details Narrative: Surveillance colonoscopy [facility] Active Problems Active Problems: All Active Problems (Updated 10/16/21 @ 06:51 by Pascale Rodriguez, RN) AMCKENZIE on CPAP (Acute) Past Medical History Medical History (Updated 10/16/21 @ 06:51 by Pascale Rodriguez, RN) Anxiety and depression Back pain Bleeding ulcer Chronic renal insufficiency High cholesterol HTN (hypertension) Hypoglycemia Myocardial infarction Myoclonic disorder Neurostimulator device in situ On beta roldan at home MACKENZIE on CPAP PTSD (post-traumatic stress disorder) Sleep apnea Stroke White matter disease Family History Family history of problems with anesthesia: No Surgical History Surgical History (Updated 10/16/21 @ 06:49 by Pascale Rodriguez, RN) History of back surgery History of cardiac catheterization History of colon surgery History of esophagogastroduodenoscopy (EGD) Hx of abdominal surgery Hx of colonoscopy Hx of endoscopy Hx of gastric bypass Hx of hand surgery Hx of heart artery stent Hx of hernia repair Hx of knee surgery Status post panniculectomy History of Problems with Anesthesia: No Social History Social History Are you a primary patient care technician to a significant other at home: No Do you presently have visiting nurse or other home services: No Patient Tobacco Use Status: Former Tobacco user Quit Date: 30 yrs ago Tobacco use type: Cigarette Use of substances other than those prescribed or required for medical reasons: Yes Substance Use Type Other:: medical for pain Are you DNR?: No Advance Directives: Yes Advance Directives on File: Yes Advance Directives Date on File: 03/14/21 Meds Allergies Allergy/AdvReac Type Severity Reaction Status Date / Time animal dander Allergy Intermediate itchy eyes Verified 10/16/21 07:12 / runny nose metformin [METFORMIN] Allergy Unknown KIDNEY Verified 10/16/21 07:12 FAILURE, anaphylaxis Active Medications: Current Medications Lactated Ringer's (Lr) 1,000 mls @ 50 mls/hr IVCONT .Q20H KEITH Last Admin: 10/16/21 07:24 Dose: 50 mls/hr Sodium Biphosphate/Sodium Phosphate (Sodium Phosphate,[place]-Dibasic 133 Ml Enema) 133 ml FL ONCE PRN PRN Reason: Poor Colonoscopy Prep Results Home Medications Medication Instructions Recorded Confirmed Last Taken Type aspirin 81 mg tablet,delayed 81 mg PO DAILY 03/07/21 10/10/21 10/15/21 History release clopidogrel 75 mg tablet 75 mg PO DAILY 03/07/21 10/10/21 10/09/21 History ferrous gluconate 256 mg (28 mg 256 mg PO DAILY 03/07/21 10/10/21 Unknown History iron) tablet fluoxetine 20 mg tablet 20 mg PO DAILY 03/07/21 10/10/21 10/16/21 05:00 History gabapentin 400 mg tablet 1,200 mg PO TID 03/07/21 10/10/21 Unknown History magnesium oxide 400 mg PO DAILY 03/07/21 10/10/21 Unknown History methocarbamol 750 mg tablet 750 mg PO BID PRN Pain 03/07/21 10/10/21 Unknown History metoprolol tartrate 25 mg tablet 1 tab PO BID 03/07/21 10/10/21 10/16/21 05:00 History multivitamin 1 tab PO DAILY 03/07/21 10/10/21 Unknown History omeprazole 40 mg capsule,delayed 40 mg PO TID 03/07/21 10/10/21 10/16/21 05:00 History release sucralfate 1 gram tablet 1 g PO BID 03/07/21 10/10/21 Unknown History trazodone 100 mg tablet 100 mg PO BEDTIME 03/07/21 10/10/21 Unknown History atorvastatin 40 mg tablet 80 mg PO BEDTIME 04/27/21 10/10/21 Unknown History bupropion HCl 300 mg 24 hr tablet, 300 mg PO QAM 04/27/21 10/10/21 10/16/21 05:00 History extended release isosorbide mononitrate 30 mg 30 mg PO DAILY 04/27/21 10/10/21 10/16/21 05:00 History tablet,extended release 24 hr losartan 100 mg tablet 100 mg PO DAILY 04/27/21 10/10/21 Unknown History ascorbic acid (vitamin C) 1,000 mg 1,000 mg PO DAILY 10/16/21 10/16/21 Unknown History tablet (Vitamin C) calcium 600 mg capsule 600 mg PO DAILY 10/16/21 10/16/21 Unknown History nitroglycerin 0.4 mg sublingual mg sublingual 10/16/21 10/16/21 Unknown History tablet vitamin E 400 unit tablet 400 unit PO DAILY 10/16/21 10/16/21 Unknown History Exam Exam Date and Time: October 16, 2021 0737 Height,Weight and Vital Signs: Height 5 ft 11 in Weight 105.233 kg Last Vital Signs Temp 97.1 F 10/16/21 07:17 Pulse 47 L 10/16/21 07:17 Resp 18 10/16/21 07:17 BP 152/84 H 10/16/21 07:17 Pulse Ox 96 10/16/21 07:17 O2 Del Method 10/16/21 07:17 Airway Mallampati Class: II TM Dist: >3cm Neck ROM: Full Denture: Upper Loose/Missing/Broken Teeth: Yes (upper denture in as per patient request, lower no teeth) Heart: [id number] Lungs: cta b/l Assessment and Plan Assessment Anesthesia Assessment: Anesthesia Plan Discussed and Chart Reviewed Final Anesthetic Review Family History of Problems with Anesthesia: No History of Problems with Anesthesia: No NPO: Yes ASA Class: III Final Preanesthetic Review: No Changes in Pt Med Stat, Meds/Allgs Chart Reviewed, Consent Obtained/Reviewed and Anes Risks/Benef Reviewed Patient Risk: Intermediate Procedure Risk: Intermediate Assessment/Block/Sedation in SS: Assess/Block/Sedation-SS Anesthetic Plan Anesthetic Plan: MAC: and Agree w/ Assess. and Plan Disposition: Standard PACU
[2021-10-16 08:30] VITALS: BP 114/69; PULSE 51; RESP 16; TEMP 37.1; O2SAT 96
--- NOTE | 2021-10-16 08:36 | PM.OP ---
Brief Operative Note Date of Service: 10/16/21 Pre-op diagnosis: Screening Post-op diagnosis: other (Colon polyp) Procedure: Colonoscopy to the cecum and TI with hot snare polypectomy of rectal polyp and placement of 1 Resolution clip. Surgeon: Gilbert Mccloud Anesthesia: MAC Was an Steel Loader used for this Procedure?: No Estimated blood loss (mL): 0 Pathology: other (A. Rectal polyp) Condition: stable Disposition: PACU
[2021-10-16 08:45] VITALS: BP 136/76; PULSE 45; RESP 18; TEMP 37.1; O2SAT 94
--- NOTE | 2021-10-16 20:44 | OP_ITS ---
SURGEON: Gilbert Mccloud MD INDICATIONS: The patient presents for followup of colorectal cancer screening and personal history of tubular adenomas of the colon. Full consent obtained from him for this, including risks of bleeding and perforation. PREOPERATIVE DIAGNOSIS: Colorectal cancer screening and personal history of tubular adenoma of the colon. POSTOPERATIVE DIAGNOSIS: Colorectal cancer screening and personal history of tubular adenoma of the colon, colon polyp, diverticulosis, internal hemorrhoids. PROCEDURE PERFORMED: Colonoscopy to the cecum and terminal ileum with hot snare polypectomy and placement of one resolution clip. ESTIMATED BLOOD LOSS: COMPLICATIONS: ANESTHESIA: Medication used, monitored anesthesia care. ASSISTANTS: SPECIMENS: DESCRIPTION OF PROCEDURE: The patient was placed in the left lateral decubitus position. The digital rectal exam revealed some external hemorrhoidal tissue. The Olympus video pediatric colonoscope was entered into the rectum and advanced easily to the cecum. Once in the cecum, I did identify normal-appearing cecal pouch with appendiceal orifice and a normal-appearing ileocecal valve. The terminal ileum was cannulated and appeared normal. The scope was withdrawn back in the colon. The entire cecum and ileocecal valve appeared normal. The scope was then slowly withdrawn assessing all mucosal surfaces carefully. For the most part, preparation was very good throughout the colon although a lot of irrigation and suctioning had to be done. The only polyp I visualized was in the distal rectum seen in the retroflexed position. This was approximately 8 mm in diameter and was removed by hot snare polypectomy and recovered by suction. The polypectomy site appeared clean, without any sign of residual polyp nor bleeding. A single Resolution clip was applied with good deployment and good hemostasis. I did not visualize any other polyps, colitis, or angiodysplasia. There was a mild amount of sigmoid diverticulosis. There were internal hemorrhoids noted in the rectum in the retroflexed position as well. The scope was withdrawn from the patient. He tolerated the procedure well and was returned to the recovery area in stable condition. IMPRESSION: 1. Rectal polyp. 2. Diverticulosis. 3. Internal and external hemorrhoids. PLAN: The results of the pathology will be checked. I would recommend a repeat colonoscopy in 5 years for further screening and surveillance. He was advised to resume his aspirin and Plavix tomorrow. I would recommend a 2-day bowel prep for his next colonoscopy as well. He will continue his regimen of sucralfate and omeprazole in regard to his history of anastomotic ulcers and previous GI bleeding as well. This has all been discussed with his . MD ROXANNA Howard/CHARLES / [id number] MTDD
== END 2021-10-16 09:22 | disposition home or self-care (01) ==
PROVIDERS: PCP Internal Medicine; Visit Provider Internal Medicine
PROC: 0DJD8ZZ Inspection of Lower Intestinal Tract, Via Natural or Artificial Opening Endoscopic (ICD-10-PCS; CPT 45378; principal; 2021-10-16 07:30)
DX: Z12.11 Encounter for screening for malignant neoplasm of colon (principal); Z86.010 Personal history of colon polyps; D12.8 Benign neoplasm of rectum; K57.30 Diverticulosis of large intestine without perforation or abscess without bleeding; K64.8 Other hemorrhoids; K64.4 Residual hemorrhoidal skin tags; K28.2 Acute gastrojejunal ulcer with both hemorrhage and perforation; G47.33 Obstructive sleep apnea (adult) (pediatric); G25.3 Myoclonus; I25.10 Atherosclerotic heart disease of native coronary artery without angina pectoris; Z98.61 Coronary angioplasty status; I10 Essential (primary) hypertension; R90.82 White matter disease, unspecified; Z87.891 Personal history of nicotine dependence; F43.10 Post-traumatic stress disorder, unspecified; I69.359 Hemiplegia and hemiparesis following cerebral infarction affecting unspecified side; I69.328 Other speech and language deficits following cerebral infarction; Z79.01 Long term (current) use of anticoagulants; Z79.82 Long term (current) use of aspirin; Z79.899 Other long term (current) drug therapy; Z98.84 Bariatric surgery status; Z88.8 Allergy status to other drugs, medicaments and biological substances
CPT/HCPCS: 45385; 88305

== ENCOUNTER → 2021-11-28 09:53 | Outpatient (BNVA) | payer MEDICARE, SELFPAY | PROVIDERS: PCP Internal Medicine; Visit Provider Internal Medicine | DX: G47.33 Obstructive sleep apnea (adult) (pediatric) (principal); Z99.89 Dependence on other enabling machines and devices | CPT/HCPCS: 99212 ==

== ENCOUNTER → 2022-05-31 09:15 | Outpatient (BNVA) | payer MEDICARE, SELFPAY | PROVIDERS: PCP Internal Medicine; Visit Provider Internal Medicine | DX: G47.33 Obstructive sleep apnea (adult) (pediatric) (principal); E66.9 Obesity, unspecified; Z99.89 Dependence on other enabling machines and devices; Z68.34 Body mass index [BMI] 34.0-34.9, adult | CPT/HCPCS: 99212 ==

== ENCOUNTER 2022-09-17 11:07 | Observation (INO) | payer MEDICARE, SELFPAY ==
[2022-09-17] VITALS (9 sets, daily range): BP systolic 126–161; BP diastolic 62–86; PULSE 54–94; RESP 14–19; TEMP 36.6–39.5; O2SAT 92–96; BMI 34.5
--- NOTE | ~2022-09-17 | CT_ITS ---
EXAMINATION: CT ABDOMEN AND PELVIS WITH CONTRAST CLINICAL INFORMATION: Acute abdominal pain COMPARISON: 08/05/2018 TECHNIQUE: Multidetector volumetric images were obtained from the superior aspect of the liver through the pubic symphysis following administration 85 mL of Omnipaque 350 intravenous contrast. Sagittal and coronal reformatted images were obtained on the technologist's workstation. Oral contrast: No This CT examination was performed using dose optimization techniques as appropriate, variously including the following: *Automated exposure control *Adjustment of mA and/or kV according to patient size (this includes techniques or standardized protocols for targeted exams where dose is matched to indication/reason for exam; i.e. extremities or head) *Use of iterative reconstruction technique DLP: 979.12 mGy-cm FINDINGS: LUNG BASES: The visualized lung bases are unremarkable. LIVER, GALLBLADDER, AND BILIARY TREE: Liver is of low attenuation due to hepatic steatosis without intrahepatic masses or ductal dilatation seen. Gallbladder is well distended, without pericolic cystic fluid collection or neck cholelithiasis. PANCREAS: Unremarkable. SPLEEN: Unremarkable. ADRENAL GLANDS: Unremarkable. KIDNEYS AND URETERS: The kidneys are normal in size, shape, and attenuation. There is stable exophytic simple 2.4 cm cyst in the upper pole of left kidney. The right kidney is unremarkable. No hydronephrosis, hydroureter, or calculi seen. No perinephric stranding. BLADDER: Unremarkable. GASTROINTESTINAL TRACT: The small and large bowel are unremarkable. The appendix is not seen ABDOMINAL WALL: No significant hernia is appreciated. LYMPH NODES: Normal. VASCULAR: Unremarkable. PELVIC VISCERA: Unremarkable. OSSEOUS STRUCTURES: There are multilevel degenerative changes in lower lumbar spine and status post L5 and is 1 disc spacer placement and there is neurostimulator device seen at the level of T9 and T8 CT/CT abdomen pelvis w IV con IMPRESSION: 1. No explanation for abdominal pain. 2. Hepatic steatosis. Fleischner guidelines were followed.
--- NOTE | ~2022-09-17 | XR_ITS ---
EXAMINATION: XR CHEST CLINICAL INFORMATION: Fever, cough COMPARISON: January 2020. TECHNIQUE: Frontal view of the chest was obtained. 1210 hours. Patient rotated to the right. FINDINGS: No significant abnormality is noted involving the heart, lungs, mediastinum, bony thorax or soft tissues. XR/XR chest 1V IMPRESSION: Unremarkable examination.
--- NOTE | ~2022-09-17 | CT_ITS ---
EXAMINATION: CT HEAD WITHOUT CONTRAST CLINICAL INFORMATION: CVA, acute on chronic, right facial droop COMPARISON: 02/16/2020 TECHNIQUE: Contiguous axial imaging was performed from the skull base to vertex without intravenous administration of contrast. This CT examination was performed using dose optimization techniques as appropriate, variously including the following: *Automated exposure control *Adjustment of mA and/or kV according to patient size (this includes techniques or standardized protocols for targeted exams where dose is matched to indication/reason for exam; i.e. extremities or head) *Use of iterative reconstruction technique DLP: 766.92 mGy-cm FINDINGS: There is no evidence of acute intracranial hemorrhage or edematous territorial infarction. Jean-white matter differentiation is preserved. There is no abnormal attenuation within the brain parenchyma. The ventricles are normal in morphology and size. No evidence for obstructive hydrocephalus. No abnormal mass effect or midline shift. No extra-axial fluid collections. No acute soft tissue or osseous abnormalities. The mastoid air cells and visualized paranasal sinuses are clear. CT/CT head/brain wo IV con IMPRESSION: 1. No evidence of acute intracranial hemorrhage or edematous territorial infarction.
--- NOTE | 2022-09-17 11:10 | ECG_ITS ---
Test Reason : CP Blood Pressure : / mmHG Vent. Rate : 099 BPM Atrial Rate : 099 BPM P-R Int : 178 ms QRS Dur : 148 ms QT Int : 368 ms P-R-T Axes : 031 -04 110 degrees QTc Int : 472 ms Normal sinus rhythm Left bundle branch block Abnormal ECG When compared with ECG of 16-FEB-2020 11:01, Vent. rate has increased BY 47 BPM Left bundle branch block is now Present Referred By: Generic ED Physician Electronically Signed By:JOSH PABON
[2022-09-17 12:20] LABS: MANUAL DIFF FLAG NO
[2022-09-17 12:22] LABS: Basophils Percent Auto 0.1 % (0-2); Eosinophils Absolute Auto 0.1 X10*3/uL (0.0-0.4); Eosinophils Percent Auto 0.7 % (0-4); Hematocrit 35.8 % (42.0-52.0); Imm Gran Abs Auto 0.02 X10*3/uL (0.00-0.03); Imm Gran Pct Auto 0.3 % (0.0-0.4); Lymphocytes Absolute Auto 0.5 X10*3/uL (1.2-4.9); Lymphocytes Percent Auto 6.8 % (20-40); Mean Corpuscular HGB Conc 33.5 g/dl (31.0-36.0); Mean Corpuscular Volume 86.5 fL (80.0-98.0); Mean Platelet Volume 11.1 fL (9.4-12.4); Monocytes Absolute Auto 0.5 X10*3/uL (0.1-1.2); Monocytes Percent Auto 7.5 % (2-11); Neutrophils Absolute Auto 6.1 x10*3/uL (2.0-8.3); Neutrophils Percent Auto 84.6 % (45-73); Platelet Count 154 X10*3/uL (160-400); Red Blood Count 4.14 X10*6/uL (4.60-5.80); Red Cell Distribution Width 13.3 % (11.0-16.0); White Blood Count 7.2 X10*3/uL (4.8-10.8)
[2022-09-17] MEDS: Acetaminophen 325 MG TABLET 975 MG PO (12:30)
[2022-09-17 12:33] LABS: Appearance Urine Clear; Color Urine Yellow; Glucose Urine UA Negative (Negative); Leukocyte Esterase Urine Negative (Negative); Nitrite Urine Negative (Negative); PH 5.5 (5.0-9.0); Specific Gravity - Urine 1.015 (1.005-1.025); UMIC TRIGGER UACC YES; Urine Blood Negative (Negative); Urine Ketones Negative (Negative); Urine Protein 100 (2+) mg/dL (Neg-Trace)
[2022-09-17 12:37] LABS: IDNOW Serial# 08D9AD1C; IDNOW Serial# BCCEAD1C; Influenza A Negative (Negative); Influenza B2 Negative (Negative)
[2022-09-17 12:38] LABS: Bacteria Urine None Seen (None Seen); Hyaline Casts Urine 0-2 /LPF (0-2); RBC Urine 0-2 /HPF (0-2); Squamous Epithelial Cell Urine 0-2 /HPF (0-2); WBC Urine 0-5 /HPF (0-5)
[2022-09-17 12:38] LABS: COVID-19 Test Negative (Negative)
[2022-09-17 12:39] LABS: Lactic Acid 2.3 mmol/L (0.5-2.0)
[2022-09-17 12:41] LABS: Alanine Aminotransferase 238 U/L (0-40); Albumin Level 3.6 g/dL (3.5-5.0); Alkaline Phosphatase 257 U/L (39-117); Anion Gap 17 (12-20); Aspartate Amino Transferase 142 U/L (5-37); Bilirubin Total 1.2 mg/dL (0.0-1.0); Blood Urea Nitrogen 17 mg/dL (9-16); Calcium 9.3 mg/dL (8.4-10.2); Carbon Dioxide 20 mmol/L (22-29); Chloride 108 mmol/L (96-108); Creatinine Clr Calc Pharmacy 92.3; Estimated Glomerular Filt Rate > 60; Glucose Random 128 mg/dL (60-115); Potassium 4.6 mmol/L (3.3-5.1); Sodium 140 mmol/L (135-145); Total Protein 7.7 g/dL (6.5-8.0)
--- NOTE | 2022-09-17 12:42 | ED_ITS ---
HPI - General Adult General Chief complaint: General Medical Stated complaint: shakey cold r eye drooping cough chest pain vomiti Time Seen by Provider: 09/17/22 11:55 Source: patient and family Mode of arrival: ambulatory Limitations: no limitations History of Present Illness HPI narrative: 66-year-old male presents with multiple complaints. Patient is complaining of abdominal pain in the upper abdomen, nausea, generalized myalgias, chills. Patient recently got over COVID. Over the past few days, patient has had increasing symptoms that have been generalized in nature including abdominal pain, nausea, diarrhea, decreased appetite, generalized weakness and elevated blood sugars. Patient describes the symptoms as quite severe. There is no clear relieving or exacerbating features. The pain in his abdomen it is dull. Does not radiate. There has been no blood in his stool. He has had diminished appetite. Denies any urinary frequency or urgency. He does have a bit of a cough and some shortness of breath. The cough is associated with some chest discomfort but he has no chest pain with exertion. Related Data Home Medications Medication Instructions Recorded Confirmed aspirin 81 mg tablet,delayed 81 mg PO DAILY 03/07/21 09/17/22 release clopidogrel 75 mg tablet 75 mg PO DAILY 03/07/21 09/17/22 gabapentin 400 mg tablet 1,200 mg PO TID@0900,1500,2000 03/07/21 09/17/22 magnesium oxide 400 mg PO DAILY@1200 03/07/21 09/17/22 methocarbamol 750 mg tablet 750 mg PO BID PRN Pain 03/07/21 09/17/22 metoprolol tartrate 25 mg tablet 1 tab PO BID 03/07/21 09/17/22 multivitamin 1 tab PO DAILY 03/07/21 09/17/22 omeprazole 40 mg capsule,delayed 40 mg PO TID 03/07/21 09/17/22 release sucralfate 1 gram tablet 1 g PO BID 03/07/21 09/17/22 trazodone 100 mg tablet 200 mg PO BEDTIME 03/07/21 09/17/22 atorvastatin 40 mg tablet 80 mg PO BEDTIME 04/27/21 09/17/22 losartan 100 mg tablet 100 mg PO DAILY 04/27/21 09/17/22 calcium 600 mg capsule 600 mg PO DAILY@1200 10/16/21 09/17/22 nitroglycerin 0.4 mg sublingual 0.4 mg sublingual Q5M 10/16/21 09/17/22 tablet brexpiprazole 1 mg tablet (Rexulti) 1 mg PO DAILY 05/31/22 09/17/22 ferrous sulfate 325 mg (65 mg 325 mg PO DAILY 05/31/22 09/17/22 iron) tablet (Feosol) clonidine HCl 0.1 mg tablet 0.1 mg PO BEDTIME 09/17/22 09/17/22 melatonin 5 mg tablet 5 mg PO BEDTIME PRN Sleep 09/17/22 09/17/22 multivitamin 1 tab PO DAILY 09/17/22 09/17/22 Allergies Allergy/AdvReac Type Severity Reaction Status Date / Time animal dander Allergy Intermediate itchy eyes Verified 05/31/22 10:14 / runny nose metformin [METFORMIN] Allergy Unknown KIDNEY Verified 05/31/22 10:14 FAILURE, anaphylaxis Review of Systems Review of Systems: CONSTITUTIONAL: Denies weight loss, +fever and chills. HEENT: Denies changes in vision and hearing. RESPIRATORY: + SOB and cough. CV: Denies palpitations + CP. GI: Denies abdominal pain,+ nausea,- vomiting and+ diarrhea. : Denies dysuria and urinary frequency. MSK: + myalgia and joint pain. SKIN: Denies rash and pruritus. NEUROLOGICAL: Denies headache and syncope. PSYCHIATRIC: Denies recent changes in mood. Denies anxiety and depression. All other ROS are negative unless in HPI PMFSH Past Medical History Medical History Anxiety and depression Back pain Bleeding ulcer Chronic renal insufficiency High cholesterol HTN (hypertension) Hypoglycemia Myocardial infarction Myoclonic disorder Neurostimulator device in situ Obesity (BMI 35.0-39.9 without comorbidity) On beta roldan at home MACKENZIE on CPAP PTSD (post-traumatic stress disorder) Sleep apnea Stroke White matter disease Surgical History History of back surgery History of cardiac catheterization History of colon surgery History of esophagogastroduodenoscopy (EGD) Hx of abdominal surgery Hx of colonoscopy Hx of endoscopy Hx of gastric bypass Hx of hand surgery Hx of heart artery stent Hx of hernia repair Hx of knee surgery Status post panniculectomy Social History Social History Are you a primary home care music therapist to a significant other at home: No Do you presently have visiting nurse or other home services: No Patient Tobacco Use Status: Former Tobacco user Quit Date: 30 yrs ago Tobacco use type: Cigarette Advance Directives: Yes Advance Directives on File: Yes Advance Directives Date on File: 03/14/21 Physical Exam ED Vital Signs: Vital Signs - 24 hr 09/17/22 11:34 09/17/22 12:24 09/17/22 12:58 Temperature 103.1 F H 101.7 F H Pulse Rate 94 88 Respiratory Rate 18 14 Blood Pressure 159/86 H 161/81 H Pulse Oximetry 96 94 Oxygen Delivery Method Room Air Room Air 09/17/22 15:06 Temperature Pulse Rate 75 Respiratory Rate 14 Blood Pressure 146/85 H Pulse Oximetry 92 Oxygen Delivery Method Room Air BMI result Body Mass Index 34.5 GEN: Well developed, no acute distress, alert, oriented HEENT: Normocephalic, atraumatic, normal external ears, nose appears normal, no oropharyngeal edema or exudates Eyes: Normal to appearance Neck: Supple, no lymphadenopathy Respiratory: Talks in complete sentences, no respiratory distress, clear to auscultation bilaterally Cardiovascular: Regular rate and rhythm, no murmurs rubs or gallops Abdomen: Soft, nontender, nondistended, no guarding, no rebound Back: No CVA tenderness Extremities: No clubbing cyanosis or edema Neurologic: No focal neurologic deficits, cranial nerves 2-12 intact, strength is 5/5 bilaterally Skin: No rash Course Reevaluation(s) Reevaluation #1: Sepsis alert activated Time: 12:55 Reevaluation #2: The workup is complete at this time. CT scan of the head and abdomen show no acute significant pathology. LFTs are significantly elevated. I have added on acute hepatitis panel. I have also added on a lipase. Patient remains hemodynamically stable. Source of infection is unclear. He has received 30 cc/kilogram IV fluid bolus. He has received broad-spectrum antibiotics. His examination at this time is benign. He remains as I mentioned before hemodynamically stable with normal heart rate. Will admit patient. Time: 16:13 Medications Administered Discontinued Medications Generic Name Dose Route Start Last Admin Trade Name Freq PRN Reason Stop Dose Admin Acetaminophen 975 mg 09/17/22 12:01 09/17/22 12:30 Acetaminophen 325 Mg Tablet PO 09/17/22 12:02 975 mg ONCE ONE Administration Acetaminophen 975 mg 09/17/22 12:40 09/17/22 14:50 Acetaminophen 325 Mg Tablet PO 09/17/22 12:41 Not Given ONCE ONE Sodium Chloride 3,369 mls @ 3,369 mls/hr 09/17/22 12:01 09/17/22 14:51 Ns 30 ml/kg infuse over 1 hr (3369 ml) 09/17/22 13:00 Infused IV Infusion .Q1H STA Ceftriaxone Sodium 1 gm/ 50 mls @ 100 mls/hr 09/17/22 12:39 09/17/22 14:51 Sodium Chloride IV 09/17/22 13:08 Infused ONCE ONE Infusion Iohexol 100 ml 09/17/22 13:25 09/17/22 13:25 Iohexol 350 Mg/Ml 100 Ml Infus..Btl IV 09/17/22 13:26 85 ml ONCE ONE Administration Ondansetron HCl 4 mg 09/17/22 12:40 09/17/22 14:52 Ondansetron Hcl 4 Mg/2 Ml Vial IVPUSH 09/17/22 12:41 4 mg ONCE ONE Administration Medical Decision Making Medical Decision Making [facility] Narrative: Patient presents with a constellation complaints but on examination he is febrile. He otherwise looks well. Abdomen is benign. Differential diagnosis includes viral syndrome, COVID, influenza, abdominal process, pneumonia, bronchitis, sepsis. Will treat as sepsis at this time with an unidentified etiology. Will start IV fluids, antibiotics, check laboratory results, provide IV fluids. Patient will likely require hospitalization. Differential Diagnosis Differential Diagnoses: The differential diagnosis associated with the pres entation includes (See above) Admission/Observation Consideration of admission/observation: Escalation of care including admission/observation considered Consult Healthcare Provider Management of the patient was discussed with: Hospitalist Lab Data MDM Lab Attestation statement: I reviewed the patient's lab results. 09/17/22 12:13 09/17/22 12:13 Labs: Lab Results 09/17/22 09/17/22 09/17/22 Range/Units 12:13 12:13 12:13 WBC 7.2 (4.8-10.8) X10*3/uL RBC 4.14 L (4.60-5.80) X10*6/uL Hgb 12.0 L (14.0-18.0) g/dl Hct 35.8 L (42.0-52.0) % MCV 86.5 (80.0-98.0) fL MCH 29.0 (27.0-33.0) pg MCHC 33.5 (31.0-36.0) g/dl RDW 13.3 (11.0-16.0) % Plt Count 154 L (160-400) X10*3/uL MPV 11.1 (9.4-12.4) fL Immature Gran % (Auto) 0.3 (0.0-0.4) % Neut % (Auto) 84.6 H (45-73) % Lymph % (Auto) 6.8 L (20-40) % [place] % (Auto) 7.5 (2-11) % Eos % (Auto) 0.7 (0-4) % Baso % (Auto) 0.1 (0-2) % Lymph # (Auto) 0.5 L (1.2-4.9) X10*3/uL [place] # (Auto) 0.5 (0.1-1.2) X10*3/uL Eos # (Auto) 0.1 (0.0-0.4) X10*3/uL Baso # (Auto) 0.0 (0.0-0.2) X10*3/uL Abs Immat Gran (auto) 0.02 (0.00-0.03) X10*3/uL Absolute Neuts (auto) 6.1 (2.0-8.3) x10*3/uL Absolute Nucleated RBC 0.000 (0.0-0.012) X10*3/uL Nucleated RBC % (auto) 0.0 (0.0-0.2) /100WBC Sodium 140 (135-145) mmol/L Potassium 4.6 (3.3-5.1) mmol/L Chloride 108 (96-108) mmol/L Carbon Dioxide 20 L (22-29) mmol/L Anion Gap 17 (12-20) BUN 17 H (9-16) mg/dL Creatinine 1.03 (0.5-1.4) mg/dL Estim Creat Clear Calc 92.3 Estimated GFR > 60 POC Glucose (60-115) mg/dL Random Glucose 128 H (60-115) mg/dL Lactic Acid (0.5-2.0) mmol/L Lactic Acid F/U @ 2Hr (0.5-2.0) mmol/L Calcium 9.3 D (8.4-10.2) mg/dL Total Bilirubin 1.2 H (0.0-1.0) mg/dL AST 142 H (5-37) U/L ALT 238 H (0-40) U/L Alkaline Phosphatase 257 H (39-117) U/L Troponin I High Sens (<3.5-35.0) ng/L Total Protein 7.7 (6.5-8.0) g/dL Albumin 3.6 (3.5-5.0) g/dL Urine Color Urine Appearance Urine pH (5.0-9.0) Ur Specific [place] (1.005-1.025) Urine Protein (Neg-Trace) mg/dL Urine Glucose (UA) (Negative) mg/dL Urine Ketones (Negative) mg/dL Urine Blood (Negative) Urine Nitrite (Negative) Ur Leukocyte Esterase (Negative) Urine RBC (0-2) /HPF Urine WBC (0-5) /HPF Ur Squamous Epith Cells (0-2) /HPF Urine Bacteria (None Seen) Hyaline Casts (0-2) /LPF COVID-19 (KHANH) Negative (Negative) COVID-19 Clin Com See Note Influenza Type A (BETTE) (Negative) Influenza Type B (BETTE) (Negative) Influenza A & B Note 09/17/22 09/17/22 09/17/22 Range/Units 12:13 12:13 12:13 WBC (4.8-10.8) X10*3/uL RBC (4.60-5.80) X10*6/uL Hgb (14.0-18.0) g/dl Hct (42.0-52.0) % MCV (80.0-98.0) fL MCH (27.0-33.0) pg MCHC (31.0-36.0) g/dl RDW (11.0-16.0) % Plt Count (160-400) X10*3/uL MPV (9.4-12.4) fL Immature Gran % (Auto) (0.0-0.4) % Neut % (Auto) (45-73) % Lymph % (Auto) (20-40) % [place] % (Auto) (2-11) % Eos % (Auto) (0-4) % Baso % (Auto) (0-2) % Lymph # (Auto) (1.2-4.9) X10*3/uL [place] # (Auto) (0.1-1.2) X10*3/uL Eos # (Auto) (0.0-0.4) X10*3/uL Baso # (Auto) (0.0-0.2) X10*3/uL Abs Immat Gran (auto) (0.00-0.03) X10*3/uL Absolute Neuts (auto) (2.0-8.3) x10*3/uL Absolute Nucleated RBC (0.0-0.012) X10*3/uL Nucleated RBC % (auto) (0.0-0.2) /100WBC Sodium (135-145) mmol/L Potassium (3.3-5.1) mmol/L Chloride (96-108) mmol/L Carbon Dioxide (22-29) mmol/L Anion Gap (12-20) BUN (9-16) mg/dL Creatinine (0.5-1.4) mg/dL Estim Creat Clear Calc Estimated GFR POC Glucose (60-115) mg/dL Random Glucose (60-115) mg/dL Lactic Acid 2.3 H* (0.5-2.0) mmol/L Lactic Acid F/U @ 2Hr (0.5-2.0) mmol/L Calcium (8.4-10.2) mg/dL Total Bilirubin (0.0-1.0) mg/dL AST (5-37) U/L ALT (0-40) U/L Alkaline Phosphatase (39-117) U/L Troponin I High Sens 3.6 (<3.5-35.0) ng/L Total Protein (6.5-8.0) g/dL Albumin (3.5-5.0) g/dL Urine Color Urine Appearance Urine pH (5.0-9.0) Ur Specific [place] (1.005-1.025) Urine Protein (Neg-Trace) mg/dL Urine Glucose (UA) (Negative) mg/dL Urine Ketones (Negative) mg/dL Urine Blood (Negative) Urine Nitrite (Negative) Ur Leukocyte Esterase (Negative) Urine RBC (0-2) /HPF Urine WBC (0-5) /HPF Ur Squamous Epith Cells (0-2) /HPF Urine Bacteria (None Seen) Hyaline Casts (0-2) /LPF COVID-19 (KHANH) (Negative) COVID-19 Clin Com Influenza Type A (BETTE) Negative (Negative) Influenza Type B (BETTE) Negative (Negative) Influenza A & B Note See Note 09/17/22 09/17/22 09/17/22 Range/Units 12:23 14:13 14:47 WBC (4.8-10.8) X10*3/uL RBC (4.60-5.80) X10*6/uL Hgb (14.0-18.0) g/dl Hct (42.0-52.0) % MCV (80.0-98.0) fL MCH (27.0-33.0) pg MCHC (31.0-36.0) g/dl RDW (11.0-16.0) % Plt Count (160-400) X10*3/uL MPV (9.4-12.4) fL Immature Gran % (Auto) (0.0-0.4) % Neut % (Auto) (45-73) % Lymph % (Auto) (20-40) % [place] % (Auto) (2-11) % Eos % (Auto) (0-4) % Baso % (Auto) (0-2) % Lymph # (Auto) (1.2-4.9) X10*3/uL [place] # (Auto) (0.1-1.2) X10*3/uL Eos # (Auto) (0.0-0.4) X10*3/uL Baso # (Auto) (0.0-0.2) X10*3/uL Abs Immat Gran (auto) (0.00-0.03) X10*3/uL Absolute Neuts (auto) (2.0-8.3) x10*3/uL Absolute Nucleated RBC (0.0-0.012) X10*3/uL Nucleated RBC % (auto) (0.0-0.2) /100WBC Sodium (135-145) mmol/L Potassium (3.3-5.1) mmol/L Chloride (96-108) mmol/L Carbon Dioxide (22-29) mmol/L Anion Gap (12-20) BUN (9-16) mg/dL Creatinine (0.5-1.4) mg/dL Estim Creat Clear Calc Estimated GFR POC Glucose 107 (60-115) mg/dL Random Glucose (60-115) mg/dL Lactic Acid (0.5-2.0) mmol/L Lactic Acid F/U @ 2Hr 0.8 (0.5-2.0) mmol/L Calcium (8.4-10.2) mg/dL Total Bilirubin (0.0-1.0) mg/dL AST (5-37) U/L ALT (0-40) U/L Alkaline Phosphatase (39-117) U/L Troponin I High Sens (<3.5-35.0) ng/L Total Protein (6.5-8.0) g/dL Albumin (3.5-5.0) g/dL Urine Color Yellow Urine Appearance Clear Urine pH 5.5 (5.0-9.0) Ur Specific [place] 1.015 (1.005-1.025) Urine Protein 100 (2+) H (Neg-Trace) mg/dL Urine Glucose (UA) Negative (Negative) mg/dL Urine Ketones Negative (Negative) mg/dL Urine Blood Negative (Negative) Urine Nitrite Negative (Negative) Ur Leukocyte Esterase Negative (Negative) Urine RBC 0-2 (0-2) /HPF Urine WBC 0-5 (0-5) /HPF Ur Squamous Epith Cells 0-2 (0-2) /HPF Urine Bacteria None Seen (None Seen) Hyaline Casts 0-2 (0-2) /LPF COVID-19 (KHANH) (Negative) COVID-19 Clin Com Influenza Type A (BETTE) (Negative) Influenza Type B (BETTE) (Negative) Influenza A & B Note Acute elevation of LFTs Independent Interpretation I performed an independent interpretation of an: EKG (Normal sinus rhythm heart rate 99, left bundle-branch block, new since 2019), Plain X-Ray (Chest: No acute cardiopulmonary disease) and CT Scan (Head: No acute disease) Radiology Impression Discussion of test interpretation with radiology: I have reviewed the radiologist's reading. Radiologist Impression: CT/CT head/brain wo IV con IMPRESSION: 1. No evidence of acute intracranial hemorrhage or edematous territorial infarction. ? ? Dictated By: Georges Smith MD Signed By: <Electronically signed by Georges Smith MD in [place]> 09/17/[address]/CT abdomen pelvis w IV con IMPRESSION: 1.? No explanation for abdominal pain. 2.? Hepatic steatosis. ? Fleischner guidelines were followed. Dictated By: Georges Smith MD Signed By: <Electronically signed by Georges Smith MD in [place]> 09/17/22 1542 Independent Historian Clinical information obtained from an independent historian. History obtained from or confirmed by: Spouse Prescription Management I considered prescription management with: Pain Medication and Antibiotic Critical Care Time Critical Care Time Critical Care Time: Yes Total Critical Care Time: 65 Attestation: Approximately 65 minutes of critical care time spent with direct patient care, to petition and medical data, frequent re-evaluation, medical documentation, consultation with other providers, management of complex medical condition that is potentially life-threatening all outside of any medical procedures. Discharge Plan Discharge Clinical Impression: Sepsis, Elevated LFTs Patient Disposition: Admitted As Inpatient
[2022-09-17] MEDS: cefTRIAXone sodium 1 GM in 0.9 % Sodium Chloride 50 ML IV (12:48)
--- NOTE | 2022-09-17 12:55 | PHA.MEDREC ---
Pharmacy Consult ? Medication Reconciliation Pharmacy has completed the medication reconciliation. PAtients spouse had a list with her
[2022-09-17] MEDS: iohexoL 350 MG/ML 100 ML INFUS..BTL IV (13:25)
[2022-09-17 14:16] LABS: Glucose, Whole Blood 107 mg/dL (60-115)
[2022-09-17 14:18] LABS: Reflex Lactate? Lactic Acid Added; Troponin-I High Sensitivity 3.6 ng/L (<3.5-35.0)
[2022-09-17] MEDS: ondansetron HCL 4 MG/2 ML VIAL IVPUSH (14:52)
[2022-09-17 15:05] LABS: ~Lactic Acid-LAB USE ONLY 0.8 mmol/L (0.5-2.0)
--- NOTE | 2022-09-17 17:19 | P.HPHOSP_ITS ---
The patient was seen and evaluated with LIBAN Johnson. I agree with her note, assessment and plan with the following. In summary, A 66 years old male with PMH of DM2, HTN, HLD, CKD3, MACKENZIE on CPAP among others presents to the hospital with feeling chills, weakness and GI symptoms suspecious for viral illness. Viral panel supportive therapy Doxycycline for possible tick-borne disease monitor clinically Rest of evaluations by PA note. History of Present Illness Date of Service: 09/17/22 Attending physician on admission: Javid Muñoz Chief Complaint: fever 66-year-old male with history of mit-wseuffn-ocbzrvwak type 2 diabetes, hypertension, hyperlipidemia, anxiety / depression, PTSD, CKD stage 3, MACKENZIE on CPAP, chronic low back pain s/p SCS, history peptic ulcer disease with bleeding ulcers,and coronary artery disease presented to the ED for evaluation of fever. The patient reports for the last week, it has been experiencing epigastric pain, arthralgias, myalgias , headache, and fatigue. This morning he woke up feeling well but then developed fever of 103.9 with associated rigors. He also states he was nauseous and vomited x1. He has also had nonbloody diarrhea x2 today and times 3-4 yesterday. He has had a productive cough ongoing since this morning but denies any associated shortness of breath or chest pain. No known history of chronic lung disease. Denies any known sick contacts. denies any tick bites but does walk his dog by long grass. Denies eating any bad foods or recent travel. No sore throat, sinus pressure, melena, hematochezia, dysuria, hemturia, increased urinary frequency, or urgency. No etoh use, illicit drug use, or s moking cigarettes. Does vape MJ. on arrival, patient febrile to 103.1, mildly tachycardic to 94. Vitals otherwise stable. Given Tylenol 975 mg with improvement in temperature to 99.5 on admission. Tachycardia has resolved. There is no leukocytosis. There is some mild normocytic anemia with H/ H 12.0/35.8%. Renal function normal, electrolyte levels normal. Initial lactic acid 2.3, repeat lactic acid 0.8 following 30 cc/kilogram bolus IVF. Total bilirubin 1.2, AST 142, ALT 238, alkaline phosphatase 257. Lipase pending. Troponin 3.6. Urinalysis negative. Negative for COVID-19, influenza. Tick panel pending. Hepatitis panel pending. In the ED, given 1g IV ceftriaxone, 3369ml IV NS, ondansetron, and tylenol. Review of Systems Review of Systems: General: No unintentional weight loss. +fevers, +rigors, malaise, +fatigue HEENT: No blurred vision, diplopia. No sore throat, nasal congestion, rhinorrhea, sinus pain, ear pain Cardiovascular: No chest pain, palpitations, or leg edema Respiratory: +cough. No shortness of breath, wheezing GI: +epigastric pain, n/v/d. No constipation, melena, hematochezia : No dysuria, hematuria, increased urinary frequency, decreased urinary output MSK: +arthralgia, +myalgia Neuro: No weakness, paresthesias Skin: No rashes or lesions [facility] Medical History (Updated 09/17/22 @ 17:48 by LIBAN Johnson) Anxiety and depression Back pain Bleeding ulcer Chronic renal insufficiency High cholesterol HTN (hypertension) Hypoglycemia Myocardial infarction Myoclonic disorder Neurostimulator device in situ Obesity (BMI 35.0-39.9 without comorbidity) On beta roldan at home MACKENZIE on CPAP PTSD (post-traumatic stress disorder) Sleep apnea Stroke Type 2 diabetes mellitus White matter disease Surgical History History of back surgery History of cardiac catheterization History of colon surgery History of esophagogastroduodenoscopy (EGD) Hx of abdominal surgery Hx of colonoscopy Hx of endoscopy Hx of gastric bypass Hx of hand surgery Hx of heart artery stent Hx of hernia repair Hx of knee surgery Status post panniculectomy Social History Are you a primary workforce investment act career manager to a significant other at home: No Do you presently have visiting nurse or other home services: No Patient Tobacco Use Status: Former Tobacco user Quit Date: 30 yrs ago Tobacco use type: Cigarette Advance Directives Date on File: 03/14/21 Meds Allergies Allergy/AdvReac Type Severity Reaction Status Date / Time animal dander Allergy Intermediate itchy eyes Verified 05/31/22 10:14 / runny nose metformin [METFORMIN] Allergy Unknown KIDNEY Verified 05/31/22 10:14 FAILURE, anaphylaxis Active Medications: Current Medications Acetaminophen (Acetaminophen 325 Mg Tablet) 650 mg PO Q6H PRN PRN Reason: Pain, Mild, fever Dextrose (Dextrose 50 % 25 Gm/50 Ml Syringe) 25 gm IVPUSH Q15M PRN; Protocol PRN Reason: per Hypoglycemia Standing Ord. Docusate Sodium (Docusate Sodium 100 Mg Capsule) 100 mg PO DAILY PRN PRN Reason: Constipation Glucose (Glucose Gel 15 Gm Gel..Gram.) 15 gm PO Q15M PRN; Protocol PRN Reason: per Hypoglycemia Standing Ord. Insulin Human Lispro (Insulin Lispro 100 Unit/Ml 3 Ml Vial) 0 unit SUBCUT [facility]; Protocol Pharmacy Consult (Consult Rx Perform Med Rec) 1 each MISCELLANE ONCE PRN PRN Reason: Consult order Sodium Chloride (0.9 % Sodium Chloride Flush 3 Ml Syringe) 3 ml IVFLUSH [facility] Home Medications Medication Instructions Recorded Confirmed Last Taken Type aspirin 81 mg tablet,delayed 81 mg PO DAILY 03/07/21 09/17/22 10/15/21 History release clopidogrel 75 mg tablet 75 mg PO DAILY 03/07/21 09/17/22 10/09/21 History gabapentin 400 mg tablet 1,200 mg PO TID@0900,1500,2000 03/07/21 09/17/22 Unknown History magnesium oxide 400 mg PO DAILY@1200 03/07/21 09/17/22 Unknown History methocarbamol 750 mg tablet 750 mg PO BID PRN Pain 03/07/21 09/17/22 Unknown History metoprolol tartrate 25 mg tablet 1 tab PO BID 03/07/21 09/17/22 10/16/21 05:00 History multivitamin 1 tab PO DAILY 03/07/21 09/17/22 Unknown History omeprazole 40 mg capsule,delayed 40 mg PO TID 03/07/21 09/17/22 10/16/21 05:00 History release sucralfate 1 gram tablet 1 g PO BID 03/07/21 09/17/22 Unknown History trazodone 100 mg tablet 200 mg PO BEDTIME 03/07/21 09/17/22 Unknown History atorvastatin 40 mg tablet 80 mg PO BEDTIME 04/27/21 09/17/22 Unknown History losartan 100 mg tablet 100 mg PO DAILY 04/27/21 09/17/22 Unknown History calcium 600 mg capsule 600 mg PO DAILY@1200 10/16/21 09/17/22 Unknown History nitroglycerin 0.4 mg sublingual 0.4 mg sublingual Q5M 10/16/21 09/17/22 Unknown History tablet brexpiprazole 1 mg tablet (Rexulti) 1 mg PO DAILY 05/31/22 09/17/22 Unknown History ferrous sulfate 325 mg (65 mg 325 mg PO DAILY 05/31/22 09/17/22 Unknown History iron) tablet (Feosol) clonidine HCl 0.1 mg tablet 0.1 mg PO BEDTIME 09/17/22 09/17/22 Unknown History melatonin 5 mg tablet 5 mg PO BEDTIME PRN Sleep 09/17/22 09/17/22 Unknown History multivitamin 1 tab PO DAILY 09/17/22 09/17/22 Unknown History Physical Exam Vital Signs and Narrative: Vital Signs: Last Vital Signs Temp 101.7 F H 09/17/22 12:58 Pulse 75 09/17/22 16:25 Resp 14 09/17/22 16:25 BP 137/76 09/17/22 16:25 Pulse Ox 95 09/17/22 16:25 O2 Del Method Room Air 09/17/22 16:25 BMI result Body Mass Index 34.5 Constitutional - Awake and Alert, No apparent distress Eyes - PERRLA, EOMI Cardiovascular - S1S2, RRR, No edema Respiratory - Normal lung expansion, Normal respiratory effort, No respiratory distress, CTA bilaterally Gastrointestinal - mild epigastric ttp, ND; +BS; No rebound or guarding Extremities - no calf tenderness bilaterally, no swelling Musculoskeletal - Normal inspection, normal ROM Skin - Warm/Dry Neurological - Alert & oriented x3, slight droop right eye but no other deficit CN II-XII, no ptosis. 5/5 strength BUE and BLE Psychological - Appropriate affect Results Labs 09/17/22 12:13 09/17/22 12:13 Labs: Laboratory Results - last 24 hr 09/17/22 09/17/22 09/17/22 12:13 12:13 12:13 MCV 86.5 MCH 29.0 MCHC 33.5 RDW 13.3 Plt Count 154 L MPV 11.1 Immature Gran % (Auto) 0.3 Neut % (Auto) 84.6 H Lymph % (Auto) 6.8 L [place] % (Auto) 7.5 Eos % (Auto) 0.7 Baso % (Auto) 0.1 Lymph # (Auto) 0.5 L [place] # (Auto) 0.5 Eos # (Auto) 0.1 Baso # (Auto) 0.0 Abs Immat Gran (auto) 0.02 Absolute Neuts (auto) 6.1 Absolute Nucleated RBC 0.000 Nucleated RBC % (auto) 0.0 Anion Gap 17 Estim Creat Clear Calc 92.3 Estimated GFR > 60 POC Glucose Random Glucose 128 H Lactic Acid Lactic Acid F/U @ 2Hr Calcium 9.3 D Total Bilirubin 1.2 H AST 142 H ALT 238 H Alkaline Phosphatase 257 H Total Protein 7.7 Albumin 3.6 Urine Color Urine Appearance Urine pH Ur Specific [place] Urine Protein Urine Glucose (UA) Urine Ketones Urine Blood Urine Nitrite Ur Leukocyte Esterase Urine RBC Urine WBC Ur Squamous Epith Cells Urine Bacteria Hyaline Casts COVID-19 (KHANH) Negative COVID-19 Clin Com See Note Influenza Type A (BETTE) Influenza Type B (BETTE) Influenza A & B Note 09/17/22 09/17/22 09/17/22 12:13 12:13 12:23 MCV MCH MCHC RDW Plt Count MPV Immature Gran % (Auto) Neut % (Auto) Lymph % (Auto) [place] % (Auto) Eos % (Auto) Baso % (Auto) Lymph # (Auto) [place] # (Auto) Eos # (Auto) Baso # (Auto) Abs Immat Gran (auto) Absolute Neuts (auto) Absolute Nucleated RBC Nucleated RBC % (auto) Anion Gap Estim Creat Clear Calc Estimated GFR POC Glucose Random Glucose Lactic Acid 2.3 H* Lactic Acid F/U @ 2Hr Calcium Total Bilirubin AST ALT Alkaline Phosphatase Total Protein Albumin Urine Color Yellow Urine Appearance Clear Urine pH 5.5 Ur Specific [place] 1.015 Urine Protein 100 (2+) H Urine Glucose (UA) Negative Urine Ketones Negative Urine Blood Negative Urine Nitrite Negative Ur Leukocyte Esterase Negative Urine RBC 0-2 Urine WBC 0-5 Ur Squamous Epith Cells 0-2 Urine Bacteria None Seen Hyaline Casts 0-2 COVID-19 (KHANH) COVID-19 Clin Com Influenza Type A (BETTE) Negative Influenza Type B (BETTE) Negative Influenza A & B Note See Note 09/17/22 09/17/22 14:13 14:47 MCV MCH MCHC RDW Plt Count MPV Immature Gran % (Auto) Neut % (Auto) Lymph % (Auto) [place] % (Auto) Eos % (Auto) Baso % (Auto) Lymph # (Auto) [place] # (Auto) Eos # (Auto) Baso # (Auto) Abs Immat Gran (auto) Absolute Neuts (auto) Absolute Nucleated RBC Nucleated RBC % (auto) Anion Gap Estim Creat Clear Calc Estimated GFR POC Glucose 107 Random Glucose Lactic Acid Lactic Acid F/U @ 2Hr 0.8 Calcium Total Bilirubin AST ALT Alkaline Phosphatase Total Protein Albumin Urine Color Urine Appearance Urine pH Ur Specific [place] Urine Protein Urine Glucose (UA) Urine Ketones Urine Blood Urine Nitrite Ur Leukocyte Esterase Urine RBC Urine WBC Ur Squamous Epith Cells Urine Bacteria Hyaline Casts COVID-19 (KHANH) COVID-19 Clin Com Influenza Type A (BETTE) Influenza Type B (BETTE) Influenza A & B Note Imaging Radiologist's Impressions: Impressions Chest X-Ray 09/17/22 12:11 IMPRESSION: Unremarkable examination. Abdomen/Pelvis CT 09/17/22 13:32 IMPRESSION: 1. No explanation for abdominal pain. 2. Hepatic steatosis. Fleischner guidelines were followed. Head CT 09/17/22 13:32 IMPRESSION: 1. No evidence of acute intracranial hemorrhage or edematous territorial infarction. Assessment and Plan (1) Viral syndrome: Status: Acute (2) SIRS (systemic inflammatory response syndrome): Status: Acute Plan 66-year-old male with history of yoa-mrekahp-fadnuabet type 2 diabetes, hypertension, hyperlipidemia, anxiety / depression, PTSD, CKD stage 3, MACKENZIE on CPAP, chronic low back pain s/p SCS, history peptic ulcer disease with bleeding ulcers,and coronary artery disease to be observed for nonspecific symptoms meeting SIRS criteria, suspect viral etiology. #Suspected Viral syndrome with SIRS -vague non specific symptoms, febrile to 103.1 with HR 94 (r/t fever), not sepsis. Lactic acidosis unlikely sepsis, likely tissue hypoperfusion from GI loss -CXR,ct abd/pelvis, head ct negative. No leukocytosis. UA negative -Neg for covid-19, flu. Full viral resp panel pending. GI panel, CDiff pcr pending. Tick panel pending -Cover empirically for tick borne illness with doxycycline -Symptomatic management with tylenol, guaifenesin, ondansetron #Acute transaminitis -suspect 2/2 viral illness vs tick borne illness as above -Hepatitis panel pending -No etoh use -follow LFTs # Prm-dbzqiot-dlpbnibif type 2 diabetes - POC glucose - diabetic diet - Humalog on sliding scale # hypertension - reasonably controlled - continue home antihypertensives # history peptic ulcer disease - has epigastric tenderness but no melena/hematochezia - continue sucralfate, omeprazole - monitor symptoms, follow CBC # chronic normocytic anemia - likely related to chronic disease - H/ H above transfusion threshold, follow CBC # mood disorder - continue home meds # chronic low back pain - continue meds #MACKENZIE -cpap bedtime DVT prophylaxis- SCPs Full code Time Spent With Patient Time: Total time managing care of this patient today ____ minutes. Quality Stroke Does the patient have a stroke diagnosis?: No VTE Prior VTE?: No VTE Risk Level:: Medical - moderate - high VTE Device Contraindication: Treatment Not Indicated VTE Drug Contraindication: N/A - Med Ordered
[2022-09-17 18:32] LABS: Lipase 199 U/L (8-78)
[2022-09-17] MEDS: Doxycycline Monohydrate 100 MG CAPSULE PO (19:21)
--- NOTE | 2022-09-17 19:33 | PC.NURSE ---
patient received in bed with eyes open patient vitals are stable at this time patient report was given the receiving nurse Amaya patient is aware of being admitted transport was notified about the need of being transported patient will continue to be monitored for safety
[2022-09-17] MEDS: traZODone HCL 100 MG TABLET 200 MG PO (20:05)
[2022-09-17] MEDS: Sucralfate 1 GM TABLET PO (20:05)
[2022-09-17] MEDS: Acetaminophen 325 MG TABLET 650 MG PO (20:05)
[2022-09-17] MEDS: cloNIDine HCL 0.1 MG TABLET PO (20:05)
[2022-09-17] MEDS: Omeprazole 40 MG CAPSULE.DR PO (20:05)
[2022-09-17] MEDS: Metoprolol Tartrate 25 MG TABLET PO (20:06)
[2022-09-17] MEDS: Gabapentin 600 MG TABLET 1200 MG PO (20:06)
[2022-09-17] MEDS: Atorvastatin Calcium 80 MG TABLET PO (20:06)
[2022-09-17 20:29] LABS: Glucose, Whole Blood 158 mg/dL (60-115)
[2022-09-17] MEDS: Insulin Lispro 100 UNIT/ML 3 ML VIAL SUBCUT (20:38)
[2022-09-17] MEDS: 0.9 % Sodium Chloride Flush 3 ML SYRINGE IVFLUSH (23:15)
[2022-09-18] VITALS: BP 117/60; PULSE 54; RESP 18; TEMP 36.1; O2SAT 96
[2022-09-18 03:16] VITALS: BP 141/79; PULSE 56; RESP 18; TEMP 36.1; O2SAT 97
[2022-09-18 04:47] VITALS: RESP 18; O2SAT 95
[2022-09-18] MEDS: Acetaminophen 325 MG TABLET 650 MG PO (05:22)
[2022-09-18] MEDS: Doxycycline Monohydrate 100 MG CAPSULE PO (05:22)
[2022-09-18 06:05] LABS: MANUAL DIFF FLAG NO
[2022-09-18 06:20] LABS: Anion Gap 15 (12-20); Blood Urea Nitrogen 15 mg/dL (9-16); Carbon Dioxide 21 mmol/L (22-29); Chloride 108 mmol/L (96-108); Creatinine Clr Calc Pharmacy 105.6; Estimated Glomerular Filt Rate > 60; Glucose Random 109 mg/dL (60-115); Sodium 140 mmol/L (135-145)
[2022-09-18 06:29] LABS: Basophils Percent Auto 0.4 % (0-2); Eosinophils Absolute Auto 0.1 X10*3/uL (0.0-0.4); Eosinophils Percent Auto 1.5 % (0-4); Hematocrit 32.2 % (42.0-52.0); Hemoglobin 10.6 g/dl (14.0-18.0); Imm Gran Abs Auto 0.03 X10*3/uL (0.00-0.03); Imm Gran Pct Auto 0.4 % (0.0-0.4); Lymphocytes Absolute Auto 0.9 X10*3/uL (1.2-4.9); Lymphocytes Percent Auto 12.5 % (20-40); Mean Corpuscular HGB Conc 32.9 g/dl (31.0-36.0); Mean Corpuscular Hemoglobin 28.6 pg (27.0-33.0); Mean Corpuscular Volume 86.8 fL (80.0-98.0); Mean Platelet Volume 11.3 fL (9.4-12.4); Monocytes Absolute Auto 1.1 X10*3/uL (0.1-1.2); Neutrophils Absolute Auto 5.4 x10*3/uL (2.0-8.3); Neutrophils Percent Auto 71.2 % (45-73); Platelet Count 142 X10*3/uL (160-400); Red Blood Count 3.71 X10*6/uL (4.60-5.80); Red Cell Distribution Width 13.4 % (11.0-16.0); White Blood Count 7.5 X10*3/uL (4.8-10.8)
[2022-09-18 07:30] VITALS: BP 159/88; PULSE 52; RESP 16; TEMP 36.7; O2SAT 95
[2022-09-18 07:58] LABS: Glucose, Whole Blood 110 mg/dL (60-115)
[2022-09-18] MEDS: Omeprazole 40 MG CAPSULE.DR PO (08:01)
[2022-09-18] MEDS: Sucralfate 1 GM TABLET PO (08:01)
[2022-09-18] MEDS: Losartan Potassium 50 MG TABLET 100 MG PO (08:01)
[2022-09-18] MEDS: Brexpiprazole 1 MG TABLET PO (08:01)
[2022-09-18] MEDS: Aspirin Enteric Coated 81 MG TABLET.DR PO (08:01)
[2022-09-18] MEDS: Metoprolol Tartrate 25 MG TABLET PO (08:01)
[2022-09-18] MEDS: Clopidogrel Bisulfate 75 MG TABLET PO (08:01)
[2022-09-18 08:02] LABS: Alanine Aminotransferase 161 U/L (0-40); Albumin Level 3.2 g/dL (3.5-5.0); Alkaline Phosphatase 186 U/L (39-117); Aspartate Amino Transferase 62 U/L (5-37); Bilirubin Direct 0.5 mg/dL (0.0-0.5); Bilirubin Total 0.9 mg/dL (0.0-1.0); Total Protein 6.4 g/dL (6.5-8.0)
[2022-09-18] MEDS: Ferrous Sulfate 324 MG TABLET.DR PO (08:02)
[2022-09-18] MEDS: Multivitamin TABLET 1 TAB PO (08:02)
[2022-09-18] MEDS: 0.9 % Sodium Chloride Flush 3 ML SYRINGE IVFLUSH (08:02)
[2022-09-18] MEDS: Gabapentin 600 MG TABLET 1200 MG PO (08:26)
--- NOTE | 2022-09-18 08:56 | MHC.CM.PN ---
ALBERT 09/18 PT LIVES WITH SPOUSE. USES [facility] FOR MOBILITY. HAS WALKER AND W/C AVAILABLE IF NEEDED. C-PAP USED FOR SLEEP. VENDOR IS [facility]. +HCP ON FILE + COVID VAX X4 PCP DR. GONZALEZ DP: HOME, NO SERVICES ANTICIPATED. [facility] WILL TRANSPORT HOME. CM WILL CONTINUE TO FOLLOW FOR ANY DC NEEDS/CHANGE IN PLAN
--- NOTE | 2022-09-18 10:53 | PM.DS ---
DS: Providers Provider Date of Service: 09/18/22 Date of admission: 09/17/22 16:51 Date of discharge: 09/18/22 Primary care physician: Luis F Benedict DO Admitting clinician: Danelle Yang Attending physician on admission: Javid Muñoz Attending physician on discharge: Carlos Rasheed Discharging clinician: Danelle Yang DS: Diagnosis Discharge Diagnosis (1) Viral syndrome: Status: Acute (2) SIRS (systemic inflammatory response syndrome): Status: Acute DS: Summary Hospital Course Hospital Course: HPI on admission 09/17 by this author: ?? 66-year-old male with history of [id number] type 2 diabetes, hypertension, hyperlipidemia, anxiety / depression, PTSD, CKD stage 3, MACKENZIE on CPAP,? chronic low back pain s/p SCS, history peptic ulcer disease with bleeding ulcers,and coronary artery disease presented to the ED for evaluation of fever.? The patient reports for the last week, it has been experiencing epigastric pain, arthralgias, myalgias , headache, and fatigue.? This morning he woke up feeling well but then developed fever of 103.9 with associated rigors.? He also states he was nauseous and vomited x1.? He has also had nonbloody diarrhea x2 today and times 3-4 yesterday.? He has had a productive cough ongoing since this morning but denies any associated shortness of breath or chest pain.? No known history of chronic lung disease.? Denies any known sick contacts. denies any tick bites but does walk his dog by long grass.? Denies eating any bad foods or recent travel. No sore throat, sinus pressure, melena, hematochezia, dysuria, hemturia, increased urinary frequency, or urgency. No etoh use, illicit drug use, or smoking cigarettes. Does vape MJ. ?on arrival, patient febrile to 103.1, mildly tachycardic to 94.? Vitals otherwise stable.? Given Tylenol 975 mg with improvement in temperature to 99.5 on admission.? Tachycardia has resolved.? There is no leukocytosis.? There is some mild normocytic anemia? with H/ H 12.0/35.8%.? Renal function normal, electrolyte levels normal.? Initial lactic acid 2.3, repeat lactic acid 0.8 following 30 cc/kilogram bolus IVF.? Total bilirubin 1.2, AST 142, ALT 238, alkaline phosphatase 257.? Lipase pending.? Troponin 3.6.? Urinalysis negative.? Negative for COVID-19, influenza.? Tick panel pending.? Hepatitis panel pending. In the ED, given 1g IV ceftriaxone, 3369ml IV NS, ondansetron, and tylenol.? Hospital course: Hospital course uneventful. Patient seen and evaluated this morning with full resolution of symptoms. He remained afebrile overnight, vitals otherwise stable. Viral respiratory panel remains resulted this morning and is positive for COVID-19. There is no hypoxia and patient is asymptomatic at this time. He tells me he was diagnosed on 08/26 and treated with paxlovid with full resolution of symptoms. This liekly represents rebound covid. Given symptoms have been present now for 8 days, patient is advised to continue isolation until afebrile x 24 hours without fever reducing medication. Tick panel remains pending as well. However, given positive COVID diagnosis, tick borne illness seems less likely. Will defer further treatment with doxycycline until tick panel results. Head CT, CXR, and CT abd/pelvis reviewed and were negative. There was no leukocytosis and UA was negative. Exam benign. LFTs elevated likely in setting of viral illness and are trending down. Lactic acidosis resolved and was unlikely to be related to any severe sepsis. Pt will be discharged home as above and advised to follow u with PCP. Status at Discharge Functional status at discharge: independent ambulation Overall status at discharge: patient is back to baseline Time Spent with Patient Time attestation: Total time managing care of this patient today ____ minutes. Discharge coordination time: Greater than 30 minutes Quality: Safe Use of Opioids Does Pt have an Active Cancer Diagnosis on the Problem List?: No Quality: Stroke Does the patient have a stroke diagnosis?: No Physical Exam Vital Signs: Vital Signs: Last Vital Signs Temp 98.1 F 09/18/22 07:30 Pulse 52 09/18/22 07:30 Resp 16 09/18/22 07:30 BP 159/88 H 09/18/22 07:30 Pulse Ox 95 09/18/22 07:30 O2 Del Method Room Air 09/18/22 07:30 BMI result Body Mass Index 34.5 Constitutional - Awake and Alert, No apparent distress Eyes - PERRLA, EOMI Cardiovascular - S1S2, RRR, No edema Respiratory - Normal lung expansion, Normal respiratory effort, No respiratory distress, CTA bilaterally Gastrointestinal - NT / ND; +BS; No rebound or guarding Extremities - no calf tenderness bilaterally, no swelling Musculoskeletal - Normal inspection, normal ROM Skin - Warm/Dry Neurological - Alert & oriented x3 Psychological - Appropriate affect DS: Data Data Completed and Pending Labs on day of discharge: Laboratory Results - last 24 hr 09/17/22 09/17/22 09/17/22 12:13 12:13 12:13 WBC 7.2 RBC 4.14 L Hgb 12.0 L Hct 35.8 L MCV 86.5 MCH 29.0 MCHC 33.5 RDW 13.3 Plt Count 154 L MPV 11.1 Immature Gran % (Auto) 0.3 Neut % (Auto) 84.6 H Lymph % (Auto) 6.8 L [place] % (Auto) 7.5 Eos % (Auto) 0.7 Baso % (Auto) 0.1 Lymph # (Auto) 0.5 L [place] # (Auto) 0.5 Eos # (Auto) 0.1 Baso # (Auto) 0.0 Abs Immat Gran (auto) 0.02 Absolute Neuts (auto) 6.1 Absolute Nucleated RBC 0.000 Nucleated RBC % (auto) 0.0 Sodium 140 Potassium 4.6 Chloride 108 Carbon Dioxide 20 L Anion Gap 17 BUN 17 H Creatinine 1.03 Estim Creat Clear Calc 92.3 Estimated GFR > 60 POC Glucose Random Glucose 128 H Lactic Acid Lactic Acid F/U @ 2Hr Calcium 9.3 D Total Bilirubin 1.2 H Direct Bilirubin AST 142 H ALT 238 H Alkaline Phosphatase 257 H Troponin I High Sens Total Protein 7.7 Albumin 3.6 Lipase 199 H Urine Color Urine Appearance Urine pH Ur Specific [place] Urine Protein Urine Glucose (UA) Urine Ketones Urine Blood Urine Nitrite Ur Leukocyte Esterase Urine RBC Urine WBC Ur Squamous Epith Cells Urine Bacteria Hyaline Casts COVID-19 (KHANH) Negative COVID-19 Clin Com See Note Influenza Type A (BETTE) Influenza Type B (BETTE) Influenza A & B Note 09/17/22 09/17/22 09/17/22 12:13 12:13 12:13 WBC RBC Hgb Hct MCV MCH MCHC RDW Plt Count MPV Immature Gran % (Auto) Neut % (Auto) Lymph % (Auto) [place] % (Auto) Eos % (Auto) Baso % (Auto) Lymph # (Auto) [place] # (Auto) Eos # (Auto) Baso # (Auto) Abs Immat Gran (auto) Absolute Neuts (auto) Absolute Nucleated RBC Nucleated RBC % (auto) Sodium Potassium Chloride Carbon Dioxide Anion Gap BUN Creatinine Estim Creat Clear Calc Estimated GFR POC Glucose Random Glucose Lactic Acid 2.3 H* Lactic Acid F/U @ 2Hr Calcium Total Bilirubin Direct Bilirubin AST ALT Alkaline Phosphatase Troponin I High Sens 3.6 Total Protein Albumin Lipase Urine Color Urine Appearance Urine pH Ur Specific [place] Urine Protein Urine Glucose (UA) Urine Ketones Urine Blood Urine Nitrite Ur Leukocyte Esterase Urine RBC Urine WBC Ur Squamous Epith Cells Urine Bacteria Hyaline Casts COVID-19 (KHANH) COVID-19 Clin Com Influenza Type A (BETTE) Negative Influenza Type B (BETTE) Negative Influenza A & B Note See Note 09/17/22 09/17/22 09/17/22 12:23 14:13 14:47 WBC RBC Hgb Hct MCV MCH MCHC RDW Plt Count MPV Immature Gran % (Auto) Neut % (Auto) Lymph % (Auto) [place] % (Auto) Eos % (Auto) Baso % (Auto) Lymph # (Auto) [place] # (Auto) Eos # (Auto) Baso # (Auto) Abs Immat Gran (auto) Absolute Neuts (auto) Absolute Nucleated RBC Nucleated RBC % (auto) Sodium Potassium Chloride Carbon Dioxide Anion Gap BUN Creatinine Estim Creat Clear Calc Estimated GFR POC Glucose 107 Random Glucose Lactic Acid Lactic Acid F/U @ 2Hr 0.8 Calcium Total Bilirubin Direct Bilirubin AST ALT Alkaline Phosphatase Troponin I High Sens Total Protein Albumin Lipase Urine Color Yellow Urine Appearance Clear Urine pH 5.5 Ur Specific [place] 1.015 Urine Protein 100 (2+) H Urine Glucose (UA) Negative Urine Ketones Negative Urine Blood Negative Urine Nitrite Negative Ur Leukocyte Esterase Negative Urine RBC 0-2 Urine WBC 0-5 Ur Squamous Epith Cells 0-2 Urine Bacteria None Seen Hyaline Casts 0-2 COVID-19 (KHANH) COVID-19 Clin Com Influenza Type A (BETTE) Influenza Type B (BETTE) Influenza A & B Note 09/17/22 09/18/22 09/18/22 20:25 06:00 06:00 WBC 7.5 RBC 3.71 L Hgb 10.6 L Hct 32.2 L MCV 86.8 MCH 28.6 MCHC 32.9 RDW 13.4 Plt Count 142 L MPV 11.3 Immature Gran % (Auto) 0.4 Neut % (Auto) 71.2 Lymph % (Auto) 12.5 L [place] % (Auto) 14.0 H Eos % (Auto) 1.5 Baso % (Auto) 0.4 Lymph # (Auto) 0.9 L [place] # (Auto) 1.1 Eos # (Auto) 0.1 Baso # (Auto) 0.0 Abs Immat Gran (auto) 0.03 Absolute Neuts (auto) 5.4 Absolute Nucleated RBC 0.000 Nucleated RBC % (auto) 0.0 Sodium 140 Potassium 4.0 Chloride 108 Carbon Dioxide 21 L Anion Gap 15 BUN 15 Creatinine 0.90 Estim Creat Clear Calc 105.6 Estimated GFR > 60 POC Glucose 158 H Random Glucose 109 Lactic Acid Lactic Acid F/U @ 2Hr Calcium 9.0 Total Bilirubin 0.9 Direct Bilirubin 0.5 AST 62 H ALT 161 H Alkaline Phosphatase 186 H Troponin I High Sens Total Protein 6.4 L Albumin 3.2 L Lipase Urine Color Urine Appearance Urine pH Ur Specific [place] Urine Protein Urine Glucose (UA) Urine Ketones Urine Blood Urine Nitrite Ur Leukocyte Esterase Urine RBC Urine WBC Ur Squamous Epith Cells Urine Bacteria Hyaline Casts COVID-19 (KHANH) COVID-19 Clin Com Influenza Type A (BETTE) Influenza Type B (BETTE) Influenza A & B Note 09/18/22 07:09 WBC RBC Hgb Hct MCV MCH MCHC RDW Plt Count MPV Immature Gran % (Auto) Neut % (Auto) Lymph % (Auto) [place] % (Auto) Eos % (Auto) Baso % (Auto) Lymph # (Auto) [place] # (Auto) Eos # (Auto) Baso # (Auto) Abs Immat Gran (auto) Absolute Neuts (auto) Absolute Nucleated RBC Nucleated RBC % (auto) Sodium Potassium Chloride Carbon Dioxide Anion Gap BUN Creatinine Estim Creat Clear Calc Estimated GFR POC Glucose 110 Random Glucose Lactic Acid Lactic Acid F/U @ 2Hr Calcium Total Bilirubin Direct Bilirubin AST ALT Alkaline Phosphatase Troponin I High Sens Total Protein Albumin Lipase Urine Color Urine Appearance Urine pH Ur Specific [place] Urine Protein Urine Glucose (UA) Urine Ketones Urine Blood Urine Nitrite Ur Leukocyte Esterase Urine RBC Urine WBC Ur Squamous Epith Cells Urine Bacteria Hyaline Casts COVID-19 (KHANH) COVID-19 Clin Com Influenza Type A (BETTE) Influenza Type B (BETTE) Influenza A & B Note Discharge Plan Discharge Anticipated Discharge Date/Time: 09/18/22 10:45 Patient Disposition: Home, Self-Care Discharge Diagnosis: viral syndrome Referrals: Luis F Benedict DO [Primary Care Provider] - 1 Week Discharge Medications: Continued calcium 600 mg Capsule 600 mg PO DAILY@1200 nitroglycerin 0.4 mg tablet, sublingual 0.4 mg sublingual Q5M multivitamin Tablet 1 tab PO DAILY sucralfate 1 gram Tablet 1 g PO BID clopidogrel 75 mg Tablet 75 mg PO DAILY omeprazole 40 mg capsule,delayed release(DR/EC) 40 mg PO TID aspirin 81 mg Tablet,Delayed Release (Dr/Ec) 81 mg PO DAILY methocarbamol 750 mg Tablet 750 mg PO BID PRN (Reason: Pain) trazodone 100 mg Tablet 200 mg PO BEDTIME metoprolol tartrate 25 mg tablet 1 tab PO BID gabapentin 400 mg Tablet 1,200 mg PO TID@0900,1500,2000 magnesium oxide 400 mg magnesium Tablet 400 mg PO DAILY@1200 atorvastatin 40 mg tablet 80 mg PO BEDTIME multivitamin Tablet 1 tab PO DAILY clonidine HCl 0.1 mg Tablet 0.1 mg PO BEDTIME melatonin 5 mg Tablet 5 mg PO BEDTIME PRN (Reason: Sleep) losartan 100 mg tablet 100 mg PO DAILY Rexulti 1 mg tablet 1 mg PO DAILY ferrous sulfate [Feosol] 325 mg (65 mg iron) tablet 325 mg PO DAILY Discharge Orders: Discharge Order (Routine); Ordered 09/18/22 Ordered By: Danelle Yang Diet: Advance to usual diet Activity on Discharge: As tolerated Stand Alone Forms: Patient Portal Discharge page Care Plan Goals: You presented to the hospital with fever of unclear course as well as nonspecifiec symptoms. Given degree of fever and heart rate elevation (resolved), you were observed overnight for any evolving infection. This morning symptoms fully resolved and you have remained afebrile. Full respiraotory viral panel revealed positive for COVID-19, likely rebound covid-19 given recent diagnosis on 08/26 treated with paxlovid. Given this is day 8 of symptoms, your isolation period will end when you are afebrile x 24 hours without medication (this eventing around 7pm). Tick panel is pending still but will notify you if positive and doxycycline needs to be continued. At this time will discontinue. Follow up with PCP soon. Health Concerns: See above Plan of Treatment: See above Assessment: See above Patient Instructions: Viral Syndrome (DC)
--- NOTE | 2022-09-18 11:10 | MHC.CM.PN ---
DP: PT HAS BEEN MEDICALLY CLEARED FOR DC HOME , NO SERVICES. [facility] WILL TRANSPORT
[2022-09-18 11:20] LABS: Glucose, Whole Blood 162 mg/dL (60-115)
[2022-09-18] MEDS: Magnesium Oxide 400 MG TABLET PO (11:46)
[2022-09-18] MEDS: Insulin Lispro 100 UNIT/ML 3 ML VIAL SUBCUT (11:47)
[2022-09-18 11:55] VITALS: BP 148/78; PULSE 60; RESP 16; TEMP 36.3; O2SAT 96
[2022-09-18 11:59] LABS: Adenovirus PCR Not Detected (Not Detect.); Bordetella parapertussis PCR Not Detected (Not Detect.); Bordetella pertussis PCR Not Detected (Not Detect.); Chlamydia pneumoniae PCR Not Detected (Not Detect.); Coronavirus 229E PCR Not Detected (Not Detect.); Coronavirus HKU1 PCR Not Detected (Not Detect.); Coronavirus NL63 PCR Not Detected (Not Detect.); Coronavirus OC43 PCR Not Detected (Not Detect.)
[2022-09-18 12:00] LABS: Human metapneumovirus PCR Not Detected (Not Detect.); Influenza A PCR Not Detected (Not Detect.); Influenza B PCR Not Detected (Not Detect.); Mycoplasma pneumoniae PCR Not Detected (Not Detect.); Parainfluenza 1 PCR Not Detected (Not Detect.); Parainfluenza 2 PCR Not Detected (Not Detect.); Parainfluenza 3 PCR Not Detected (Not Detect.); Parainfluenza 4 PCR Not Detected (Not Detect.); RSV PCR Not Detected (Not Detect.); Rhino/Enterovirus PCR Not Detected (Not Detect.); SARS-CoV-2 PCR Detected (Not Detect.)
[2022-09-19 18:58] LABS: A. Phagocytphilium DNA,RT-PCR NOT DETECTED (NOT DETECTED); Babesia Microti DNA, RT-PCR NOT DETECTED (NOT DETECTED); Borrelia Miyamotoi,DNA RT-PCR NOT DETECTED (NOT DETECTED); E.Chaffeensis DNA RT-PCR NOT DETECTED (NOT DETECTED); Lyme(Borrelia ssp)DNA RT-PCR NOT DETECTED (NOT DETECTED)
== END 2022-09-18 12:35 | disposition home or self-care (01) ==
LOC: HO.ED 12:57 → HO.EDOVER 17:23 → HO.S3 17:30
PROVIDERS: Admitting Provider Physician Assistant; Emergency Provider Emergency Medicine; PCP Internal Medicine; Visit Provider Physician Assistant
DX: B34.9 Viral infection, unspecified (principal); R65.10 Systemic inflammatory response syndrome (SIRS) of non-infectious origin without acute organ dysfunction; I12.9 Hypertensive chronic kidney disease with stage 1 through stage 4 chronic kidney disease, or unspecified chronic kidney disease; E11.22 Type 2 diabetes mellitus with diabetic chronic kidney disease; N18.30 Chronic kidney disease, stage 3 unspecified; R10.9 Unspecified abdominal pain; R50.9 Fever, unspecified; R29.810 Facial weakness; M54.50 Low back pain, unspecified; Z79.4 Long term (current) use of insulin; R19.7 Diarrhea, unspecified; R07.9 Chest pain, unspecified; G47.33 Obstructive sleep apnea (adult) (pediatric); Z20.822 Contact with and (suspected) exposure to COVID-19; E78.5 Hyperlipidemia, unspecified; Z79.899 Other long term (current) drug therapy; Z99.89 Dependence on other enabling machines and devices; Z87.891 Personal history of nicotine dependence; R05.9 Cough, unspecified
CPT/HCPCS: 36415; 70450; 71045; 74177; 80048; 80053; 80076; 81001; 82947; 83605; 83690; 84484; 85025; 87040; 87502; 87633; 87635; 87798; 87801; 93005; 94660; 96361; 96365; 96366; 96372; 96375; 99221; 99285; J0696; J2405; Q9967

== ENCOUNTER → 2022-09-17 11:10 | Outpatient (BNV) | payer MEDICARE, SELFPAY | PROVIDERS: Emergency Provider Emergency Medicine; PCP Internal Medicine; Visit Provider Internal Medicine | DX: R94.31 Abnormal electrocardiogram [ECG] [EKG] (principal); R07.9 Chest pain, unspecified | CPT/HCPCS: 93010 ==

== ENCOUNTER → 2022-09-17 16:51 | Outpatient (BNV) | payer MEDICARE, SELFPAY | PROVIDERS: Admitting Provider Physician Assistant; Emergency Provider Emergency Medicine; PCP Internal Medicine; Visit Provider Physician Assistant | DX: B34.9 Viral infection, unspecified (principal); R65.10 Systemic inflammatory response syndrome (SIRS) of non-infectious origin without acute organ dysfunction | CPT/HCPCS: 99223; 99239 ==

== ENCOUNTER 2022-10-25 07:46 | Outpatient (REF) | payer MEDICARE, SELFPAY ==
--- NOTE | ~2022-10-25 | FL_ITS ---
EXAMINATION: XR FLUOROSCOPY UPPER GI WITH AIR CLINICAL INFORMATION: 66-year-old male, history of gastric bypass, complaining of nausea, GERD, vomiting, and dysphasia. COMPARISON: Barium modified swallow 04/23/2018. Barium swallow 08/27/2007. TECHNIQUE: Fluoroscopic air contrast upper GI examination was performed utilizing standard techniques with thin and thick barium and effervescent granules. Numerous spot images were obtained. FINDINGS: Lateral cine images of the oropharynx and hypopharynx demonstrate normal swallow mechanism with normal epiglottic inversion and soft palate elevation. No tracheal penetration, glottic or subglottic aspiration identified. No nasopharyngeal reflux present. Hypopharyngeal structures appear normal without evidence of mass or diverticulum. There was no significant cricopharyngeal achalasia. A 13 mm barium tablet passed into the gastric pouch without delay. Dual and single contrast images of the esophagus demonstrate normal caliber, contour, and mucosal pattern. No evidence of stricture, mass, or ulcerations identified. Mild tertiary contractions were noted after the primary peristaltic wave consistent with mild presbyesophagus. There appears to be a tiny type I hiatus hernia. Mild gastroesophageal reflux was identified during the course of the examination to the level of the aortic arch. Dual contrast and single contrast images of the stomach demonstrated postoperative appearance of gastric bypass. The gastric pouch has a normal appearance. The primary anastomosis/gastrojejunostomy has an as expected appearance without stricturing or leak. Contrast freely passes into the jejunum without delay. The proximal small bowel has a normal mucosal fold pattern. No reflux into the excluded stomach or duodenum noted. Distal anastomosis is not well seen. Incidentally noted is a thoracic spinal stimulator device. FLUOROSCOPY TIME: 4.2 minutes Number of Spot Images: 35 DOSE AREA PRODUCT: 60.695 uGy-m2 (microgray-meter squared) FL/FL upper GI w Ba Swallow IMPRESSION: 1. Normal-appearing hypopharynx during swallow without evidence of anatomical abnormality or laryngeal penetration or aspiration. 2. Mild gastroesophageal reflux noted. 3. Mild presbyesophagus. Esophagus otherwise normal. 4. Postoperative appearance of gastric bypass with normal appearance of the gastric pouch and gastrojejunostomy. 5. Tiny type I hiatus hernia. 6. Images of the proximal small bowel/jejunum demonstrate no abnormalities.
[2022-10-25 08:43] LABS: MANUAL DIFF FLAG NO
[2022-10-25 09:09] LABS: Basophils Absolute Auto 0.1 X10*3/uL (0.0-0.2); Basophils Percent Auto 0.7 % (0-2); Eosinophils Absolute Auto 0.1 X10*3/uL (0.0-0.4); Eosinophils Percent Auto 1.9 % (0-4); Hematocrit 38.9 % (42.0-52.0); Imm Gran Abs Auto 0.02 X10*3/uL (0.00-0.03); Imm Gran Pct Auto 0.3 % (0.0-0.4); Lymphocytes Absolute Auto 1.7 X10*3/uL (1.2-4.9); Lymphocytes Percent Auto 24.3 % (20-40); Mean Corpuscular HGB Conc 33.4 g/dl (31.0-36.0); Mean Corpuscular Hemoglobin 28.5 pg (27.0-33.0); Mean Corpuscular Volume 85.3 fL (80.0-98.0); Mean Platelet Volume 10.8 fL (9.4-12.4); Monocytes Absolute Auto 0.7 X10*3/uL (0.1-1.2); Monocytes Percent Auto 10.1 % (2-11); Neutrophils Absolute Auto 4.3 x10*3/uL (2.0-8.3); Neutrophils Percent Auto 62.7 % (45-73); Platelet Count 196 X10*3/uL (160-400); Red Blood Count 4.56 X10*6/uL (4.60-5.80); Red Cell Distribution Width 13.8 % (11.0-16.0); White Blood Count 6.8 X10*3/uL (4.8-10.8)
[2022-10-25 09:43] LABS: Alanine Aminotransferase 21 U/L (0-40); Albumin Level 3.9 g/dL (3.5-5.0); Alkaline Phosphatase 76 U/L (39-117); Amylase 148 U/L (28-100); Aspartate Amino Transferase 21 U/L (5-37); Bilirubin Direct 0.2 mg/dL (0.0-0.5); Bilirubin Total 0.5 mg/dL (0.0-1.0); Lipase 101 U/L (8-78); Total Protein 7.3 g/dL (6.5-8.0)
== END 2022-10-25 07:47 | disposition home or self-care (01) ==
LOC: HO.XRAY 07:46
PROVIDERS: PCP Internal Medicine; Visit Provider Internal Medicine
DX: R13.14 Dysphagia, pharyngoesophageal phase (principal); R10.84 Generalized abdominal pain; R10.10 Upper abdominal pain, unspecified
CPT/HCPCS: 36415; 74240; 80076; 82150; 83690; 85025

== ENCOUNTER → 2022-10-25 07:49 | Outpatient (BNV) | payer MEDICARE, SELFPAY | PROVIDERS: PCP Internal Medicine; Visit Provider Radiology Diagnostic Radiology | DX: R13.10 Dysphagia, unspecified (principal) | CPT/HCPCS: 74246 ==

== ENCOUNTER 2022-12-04 10:06 | Outpatient (AMB) | payer MEDICARE, SELFPAY ==
--- NOTE | 2022-12-04 10:12 | A.OFFVIS_ITS ---
Intake Vital Signs 12/04/22 10:16 Height 5 ft 11 in Weight 244 lb 11.41 oz BMI 34.1 BP 130/70 Blood Pressure Location Lt brachial Pulse 59 Pulse Source Pulse Oximeter Pulse Oximetry (%) 95 Oxygen Delivery Method Room Air Intake Visit Reasons: Obstructive sleep apnea Arch Cushion Skiving Machine Operator Required: No Cleat Feeder: Cleat Feeder offered & declined Accompanied by: Spouse Allergies animal dander Allergy (Intermediate, Verified 12/04/22 10:33) itchy eyes / runny nose metformin [METFORMIN] Allergy (Unknown, Verified 12/04/22 10:33) KIDNEY FAILURE, anaphylaxis Medication List - Last Reconciled 12/04/22 by Garcia Griffiths MD aspirin 81 mg PO DAILY atorvastatin 80 mg PO BEDTIME brexpiprazole (Rexulti) 1 mg PO DAILY calcium 600 mg PO DAILY@1200 clonidine HCl 0.1 mg PO BEDTIME clopidogrel 75 mg PO DAILY gabapentin 1,200 mg PO TID@0900,1500,2000 losartan 100 mg PO DAILY magnesium oxide 400 mg PO DAILY@1200 melatonin 5 mg PO BEDTIME PRN methocarbamol 750 mg PO BID PRN metoprolol tartrate 1 tab PO BID multivitamin 1 tab PO DAILY nitroglycerin 0.4 mg sublingual Q5M omeprazole 40 mg PO TID sucralfate 1 g PO BID trazodone 200 mg PO BEDTIME Do you need a note to return to daycare/school/sports/work: No HPI Obstructive sleep apnea HPI Details THIS 67 YEARS OLD GENTLEMAN IS HERE FOR FOLLOW-UP FOR HIS SLEEP APNEA. HE SINCE HE HAS NEW CPAP MACHINE HE IT WORKS VERY WELL AND HE IS VERY HAPPY USING IT EVERY NIGHT. HE SLEEPS. GOOD WITHOUT WAKING UP AND DOES NOT HAVE ANY DAYTIME SLEEPINESS. HE HAS NO ISSUES WITH THE MASK OR CPAP MACHINE. 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 at home PTSD (post-traumatic stress disorder) Anxiety and depression White matter disease MACKENZIE on CPAP Sleep apnea Back pain Chronic renal insufficiency Myocardial infarction Neurostimulator device in situ Bleeding ulcer High cholesterol HTN (hypertension) Hypoglycemia Stroke Surgical History Status post panniculectomy History of cardiac catheterization Hx of endoscopy Hx of colonoscopy History of esophagogastroduodenoscopy (EGD) Hx of abdominal surgery Hx of gastric bypass Hx of hand surgery Hx of knee surgery History of colon surgery History of back surgery Hx of hernia repair Hx of heart artery stent Social History Are you a primary human services care specialist to a significant other at home: No Do you presently have visiting nurse or other home services: No Patient Tobacco Use Status: Former Tobacco user Quit Date: 1982 Tobacco use type: Cigarette Second Hand Smoke Exposure: No Advance Directives Date on File: 03/14/21 service: No Review of Systems Const All systems reviewed & are unremarkable except as noted in HPI and below Eyes Reports no additional complaints ENT Reports no additional complaints and Reports nasal congestion (Intermittent, mild) Card Denies chest pain, Denies irregular heart rhythm, Denies leg edema, Reports dyspnea (Mild) and Reports other (Has had angioplasty and stent placement and since then feeling better) Resp Reports cough (Mild off and on), Reports dyspnea (Mild) and Denies wheezing GI Reports heartburn (GERD being controlled with omeprazole, and sucralfate) Reports no additional complaints Musc Reports abnormal gait (Uses cane) Skin/Breast Reports system reviewed and no additional complaints, except as documented Neuro Reports abnormal gait (Uses cane) and Reports focal weakness (Has mild residual weakness of the right upper and lower extremity) Psych Reports no additional complaints Aller/Immun Denies wheezing Physical Exam Vital Signs: Last Vital Signs Pulse 59 12/04/22 10:16 BP 130/70 12/04/22 10:16 Pulse Ox 95 12/04/22 10:16 Oxygen Delivery Method Room Air 12/04/22 10:16 BMI result Body Mass Index 34.1 Const General: comfortable, no acute distress, alert and awake Orientation/consciousness: patient oriented x3 HEENT Head: Yes normal to inspection General nose exam: No nasal polyps present and No nasal discharge present Face and sinus: Yes sinuses nontender Mouth: oropharynx normal Throat: Yes posterior oropharynx normal Eyes General: appearance normal, both eyes and all related structures Neck Neck: Yes normal visual inspection, Yes no lymphadenopathy, Yes trachea midline and Yes no JVD Thyroid: Thyroid normal Chest Chest palpation & inspection: normal inspection of the chest, normal palpation of entire chest wall and no tenderness Resp Other: Percussion note is resonant, good breath sounds on both sides, no wheezes rhonchi or crepitations . Effort & Inspection: normal respiratory effort Auscultation: clear to auscultation bilaterally Cardio Palpation: normal PMI Rate: regular rate Rhythm: regular rhythm Heart sounds: no gallops and no murmurs GI Palpation (GI): Soft to palpation, nontender, No hepatosplenomegaly present and no masses Auscultation: normal bowel sounds Back/Spine/Pelvis Thoracic/Lumbar Spine: thoracic and lumbar spine normal to inspection and thoraco-lumbar ROM limited Skin General skin exam: no rashes or lesions noted Neuro General: patient oriented x3 and No no focal motor deficits (He does have mild weakness of the right upper and lower extremities. ) Cranial nerves: Yes CN's II-XII intact bilaterally Extrem General: Yes normal to inspection, Yes no clubbing, cyanosis or edema and Yes no calf tenderness Psych Appearance: grossly normal and well kempt Speech and movement: Normal speech and movement present Results Reviewed Results Reviewed: COMPLIANCE REPORT IS REVIEWED. HE HAS USED 28/30 NIGHTS, 93%. ON 2 NIGHTS JUST FORGETS TO PUT IT ON BEFORE HE WENT TO SLEEP. AVERAGE USE IT PER NIGHT 7 HOURS 51 MINUTE. PRESSURE IS 19 CM. MILD AIR LEAK NOTED RESIDUAL AHI ONLY 0.8 Assessment & Plan Assessment & Plan (1) Obesity (BMI 35.0-39.9 without comorbidity): Comment: Talked about his the obesity. He is aware of the fact, that he has to lose weight. HAS LOST 2 lbS SINCE LAST VISIT . He and his both were instructed about diet , mainly to cut down the use of carbohydrates and sweets, increase veggies and salads. Advised that he should start walking as much as he can on a daily basis. 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 Has chronic obstructive sleep apnea which has been treated well with the use of CPAP. The new CPAP machine working very well. He is very compliant and actually dependent on using CPAP. He is instructed to keep on using the mask regularly. Code(s): G47.33 - Obstructive sleep apnea (adult) (pediatric); Z99.89 - Dependence on other enabling machines and devices Coding Level of Care Code Est Pt Level 3 (71236) Diagnoses Obesity (BMI 35.0-39.9 without comorbidity) E66.9 MACKENZIE on CPAP G47.33; Z99.89
[2022-12-04 10:16] VITALS: BP 130/70; PULSE 59; O2SAT 95; BMI 34.1
== END 2022-12-04 10:35 | disposition home or self-care (01) ==
PROVIDERS: PCP Internal Medicine; Visit Provider Internal Medicine
DX: E66.9 Obesity, unspecified (principal); G47.33 Obstructive sleep apnea (adult) (pediatric); Z99.89 Dependence on other enabling machines and devices
CPT/HCPCS: 99213

== ENCOUNTER → 2022-12-04 10:06 | Outpatient (BNVA) | payer MEDICARE, SELFPAY | PROVIDERS: PCP Internal Medicine; Visit Provider Internal Medicine | DX: G47.33 Obstructive sleep apnea (adult) (pediatric) (principal); E66.9 Obesity, unspecified; Z68.34 Body mass index [BMI] 34.0-34.9, adult; Z99.89 Dependence on other enabling machines and devices | CPT/HCPCS: 99212 ==

== ENCOUNTER 2023-02-13 09:49 | Outpatient (REF) | payer MEDICARE, SELFPAY ==
--- NOTE | ~2023-02-13 | US_ITS ---
EXAMINATION: US ABDOMEN LIMITED CLINICAL INFORMATION: Upper abdominal pain. COMPARISON: CT abdomen and pelvis with contrast 09/17/2022. Ultrasound abdomen complete 05/30/2022. X-ray abdomen 02/08/2015. TECHNIQUE: Real-time imaging of the right upper quadrant abdominal viscera. Limited visualization due to bowel gas. FINDINGS: PANCREAS: Limited visualization of pancreatic tail and head. Imaged portion of pancreatic body is unremarkable. LIVER: Increased hepatic parenchymal heterogeneity and echogenicity which could be associated with hepatocellular disease/hepatic steatosis and substantially limits visualization. GALLBLADDER: Possible 3-4 mm gallbladder fundal polyp difficult to characterize due to limited visualization. Gallbladder wall thickness of 0.3 cm, borderline. COMMON BILE DUCT: Normal in caliber measuring 0.5 cm in diameter. RIGHT KIDNEY: No hydronephrosis. No renal calculi. Limited visualization. The kidney measures 12.0 cm in maximum dimension. FREE FLUID: None. US/US abdomen limited IMPRESSION: 1. Possible 3-4 mm gallbladder fundal polyp difficult to characterize due to limited visualization. Recommend follow-up ultrasound in 6 months with good preparation, nothing by mouth. 2. Increased hepatic parenchymal heterogeneity and echogenicity which could be associated with hepatocellular disease/hepatic steatosis and substantially limits visualization.
== END 2023-02-13 09:50 | disposition home or self-care (01) ==
LOC: HO.HMGCX 09:49
PROVIDERS: PCP Internal Medicine; Visit Provider Internal Medicine
DX: R10.11 Right upper quadrant pain (principal)
CPT/HCPCS: 76705

== ENCOUNTER 2023-04-15 08:56 | Outpatient (AMB) | payer OTHER, SELFPAY ==
--- NOTE | 2023-04-15 09:09 | MHC.OFFVIS ---
Intake Intake Visit Reasons: urinary hesitancy Intake Note: NEW Patient presents today to established treatment for Urinary Hesitancy Meds- None Allergies to Antibiotic- No Known Allergies Blood Thinner- Aspirin Post Void Residual:26 Patient Symptoms: Patient stated he urinates very often during the day, however he drinks a lot of water. he wakes up once at night to go to the bathroom, he also denies any pain when he urinates, and also he stated he leaks if he needs to go the bathroom. Brake Reliner Required: No Accompanied by: Allergies animal dander Allergy (Intermediate, Verified 04/15/23 09:17) itchy eyes / runny nose metformin [METFORMIN] Allergy (Unknown, Verified 04/15/23 09:17) KIDNEY FAILURE, anaphylaxis Medication List - Last Reconciled 04/15/23 by Cristy Hall MD amlodipine 5 mg PO DAILY aspirin 81 mg PO DAILY atorvastatin 80 mg PO BEDTIME brexpiprazole (Rexulti) 1 mg PO DAILY calcium 600 mg PO DAILY@1200 clonidine HCl 0.1 mg PO BEDTIME clopidogrel 75 mg PO DAILY gabapentin 1,200 mg PO TID@0900,1500,2000 [glucose tablets PO] losartan 100 mg PO DAILY magnesium oxide 400 mg PO DAILY@1200 [medical marihuana PO] melatonin 5 mg PO BEDTIME PRN methocarbamol 750 mg PO BID PRN metoprolol tartrate 1 tab PO BID multivitamin 1 tab PO DAILY nitroglycerin 0.4 mg sublingual Q5M omeprazole 40 mg PO TID sucralfate 1 g PO BID tamsulosin (Flomax) 0.4 mg PO BEDTIME trazodone 200 mg PO BEDTIME HPI HPI Comments History of Present Illness Details Jacob is a 67-year-old male with history of type 2 diabetes, hypertension, hyperlipidemia, anxiety / depression, PTSD, obesity status post gastric bypass 2012, CKD-follows with Nephrology, MACKENZIE on CPAP,? chronic low back pain s/p SCS, history peptic ulcer disease with h/o bleeding ulcers,and coronary artery disease, history of stroke 2018 (states he had 3 strokes that year March 20, March 22, & April 07); He presents for evaluation for BPH and weak urinary stream and he describes times where he gets the urge and has leaked urine before getting to the bathroom. He declines prostate exam states he had 1 done at the [place] Urinalysis negative for bladder leukocytes, 2+ protein, bladder scan PVR 26 mL I have discussed that his symptoms may arise from both bladder spasms as well as enlarged prostate. I will initially trial an alpha-roldan Flomax 0.4 mg daily. 04/15/2023--Plan Flomax 0.4 mg daily Ultrasound retroperitoneum, kidneys bladder PSA screening Follow-up 8-10 weeks [facility] Medical History Type 2 diabetes mellitus Obesity (BMI 35.0-39.9 without comorbidity) Myoclonic disorder On beta roldan at home PTSD (post-traumatic stress disorder) Anxiety and depression White matter disease MACKENZIE on CPAP Sleep apnea Back pain Chronic renal insufficiency Myocardial infarction Neurostimulator device in situ Bleeding ulcer High cholesterol HTN (hypertension) Hypoglycemia Stroke Surgical History Status post panniculectomy History of cardiac catheterization Hx of endoscopy Hx of colonoscopy History of esophagogastroduodenoscopy (EGD) Hx of abdominal surgery Hx of gastric bypass Hx of hand surgery Hx of knee surgery History of colon surgery History of back surgery Hx of hernia repair Hx of heart artery stent Social History Are you a primary pediatric critical care nurse to a significant other at home: No Do you presently have visiting nurse or other home services: No Patient Tobacco Use Status: Former Tobacco user Quit Date: 1982 Tobacco use type: Cigarette Second Hand Smoke Exposure: No Advance Directives Date on File: 03/14/21 service: No Review of Systems Const All systems reviewed & are unremarkable except as noted in HPI and below Reports as per HPI Eyes Reports no additional complaints ENT Reports no additional complaints Card Reports no additional complaints Resp Reports no additional complaints GI Reports no additional complaints Reports as per HPI Musc Reports no additional complaints Skin/Breast Reports system reviewed and no additional complaints, except as documented Neuro Reports no additional complaints Psych Reports no additional complaints Endo Reports no additional complaints Terrell/Lymph Reports no additional complaints Aller/Immun Reports no additional complaints Physical Exam Const General: healthy appearing, no acute distress and well developed Orientation/consciousness: patient oriented x3 HEENT Head: Yes normocephalic and Yes atraumatic Eyes Conjunctivae: conjunctivae normal Neck Neck: Yes normal visual inspection Chest Chest palpation & inspection: normal inspection of the chest Resp Effort & Inspection: normal respiratory effort Cardio Rate: regular rate GI Inspection: Yes normal to inspection Skin General skin exam: no rashes or lesions noted Neuro General: patient oriented x3 Extrem General: No pedal edema Psych Appearance: grossly normal Affect: normal affect Office Procedures Post Void Residual Post Residual Void Post Void Residual (PVR): 26 [id number] Void Residual by ultrasound Results AMB Urinalysis, Automated UA Leukoctes 0 Garrick/uL Last Edit by Carine Brewerjesus Brewer [facility] on 04/15/23 09:18 UA Nitrite Negative Last Edit [facility], [facility] on 04/15/23 09:18 UA Urobilinogen 0.2 mg/dL Last [facility] on 04/15/23 09:18 UA Protein 100 mg/dL Last Edit by [facility], [facility] on 04/15/23 09:18 UA pH 7.5 Last Edit [facility], [facility] on 04/15/23 09:18 UA Blood 0 Rufus/uL Last Edit [facility] on 04/15/23 09:18 UA Specific [place] 1.015 Last Edit by Carine Brewerjesus Brewer [facility] on 04/15/23 09:18 UA Ketone Negative Last Edit [facility] on 04/15/23 09:18 UA Bilirubin 0 mg/dL Last Edit [facility] on 04/15/23 09:18 UA Glucose 0 mg/dL Last Edit [facility] on 04/15/23 09:18 Assessment & Plan Assessment & Plan (1) BPH loc w urin obs/LUTS: Code(s): N40.1 - Benign prostatic hyperplasia with lower urinary tract symptoms (2) Screening PSA (prostate specific antigen): Code(s): Z12.5 - Encounter for screening for malignant neoplasm of prostate (3) Urinary urgency: Code(s): R39.15 - Urgency of urination (4) Urge incontinence of urine: Code(s): N39.41 - Urge incontinence Plan Flomax 0.4 mg daily Ultrasound retroperitoneum, kidneys bladder PSA screening Follow-up 8-10 weeks Orders: Orders AMB Urinalysis Automated Today R33.9 - Retention of urine, unspecified PSA,Total (Free>4and<10) Today N40.1 - Benign prostatic hyperplasia with lower urinary tract symptoms, Z12.5 - Encounter for screening for malignant neoplasm of prostate US retroperitoneal comp Today N40.1 - Benign prostatic hyperplasia with lower urinary tract symptoms AMB Post Void Residual by ultrasound Today R33.9 - Retention of urine, unspecified Medications: New tamsulosin (Flomax) 0.4 mg PO BEDTIME 30 caps 2RF Coding Level of Care Code New Pt Level 4 (61896) Diagnoses BPH loc w urin obs/LUTS N40.1 Screening PSA (prostate specific antigen) Z12.5 Urinary urgency R39.15 Urge incontinence of urine N39.41 CPT Codes Post Residual Void - PVR CPT Code: 77047-[id number] Void Residual by ultrasound ([id number])
== END 2023-04-15 09:44 | disposition home or self-care (01) ==
PROVIDERS: PCP Internal Medicine; Visit Provider Urology
DX: N40.1 Benign prostatic hyperplasia with lower urinary tract symptoms (principal); N39.41 Urge incontinence; R33.9 Retention of urine, unspecified
CPT/HCPCS: 99204

== ENCOUNTER → 2023-04-15 08:56 | Outpatient (BNVA) | payer OTHER, MEDICARE, SELFPAY | PROVIDERS: PCP Internal Medicine; Visit Provider Urology | DX: Z12.5 Encounter for screening for malignant neoplasm of prostate (principal); N40.1 Benign prostatic hyperplasia with lower urinary tract symptoms; N39.41 Urge incontinence; R39.15 Urgency of urination | CPT/HCPCS: 51798; 81003; 99202 ==

== ENCOUNTER 2023-04-17 09:46 | Outpatient (REF) | payer OTHER, SELFPAY ==
[2023-04-17 11:12] LABS: PSA,Total (Free>4and<10) 0.47 ng/mL (0.00-4.00)
== END 2023-04-17 09:47 | disposition home or self-care (01) ==
LOC: HO.LAB 09:46
PROVIDERS: PCP Internal Medicine; Visit Provider Urology
DX: Z12.5 Encounter for screening for malignant neoplasm of prostate (principal); N40.1 Benign prostatic hyperplasia with lower urinary tract symptoms
CPT/HCPCS: 36415; 84153

== ENCOUNTER 2023-05-22 09:57 | Outpatient (REF) | payer OTHER, SELFPAY ==
--- NOTE | ~2023-05-22 | US_ITS ---
EXAMINATION: US RETROPERITONEAL COMPLETE (RENAL) CLINICAL INFORMATION: Benign prostatic hyperplasia with lower urinary tract symptoms. COMPARISON: Limited abdominal ultrasound 02/13/2023. CT abdomen and pelvis 09/17/2022. Ultrasound abdomen complete 12/02/2017. TECHNIQUE: Real-time imaging of the kidneys and bladder. FINDINGS: RIGHT KIDNEY: 11.0 x 5.0 x 6.0 cm (SAG x AP x TRV). The kidney is normal in size, contour, and echogenicity. Renal cortical thickness is normal. No calculi or focal parenchymal lesions. No hydronephrosis. LEFT KIDNEY: 11.4 x 6.2 x 5.8 cm (SAG x AP x TRV). The kidney is normal in size, contour, and echogenicity. Renal cortical thickness is normal. No renal calculi or hydronephrosis. At the upper pole, a 2.2 cm benign, simple cyst is seen, which requires no imaging follow-up. BLADDER: Well distended. Bilateral ureteral jets are demonstrated. Prevoid bladder volume is 289 mL. Postvoid bladder volume is 41 mL. Mild debris seen within the urinary bladder. OTHER: Prostate dimensions are 3.6 x 3.4 x 2.3 cm, volume 14.8 mL. US/US retroperitoneal comp IMPRESSION: 1. Unremarkable ultrasound appearance of the kidneys. 2. There is nonspecific mild debris within the urinary bladder, for which correlation with the patient's most recent urinalysis is recommended.
== END 2023-05-22 09:58 | disposition home or self-care (01) ==
LOC: HO.HMGCX 09:57
PROVIDERS: PCP Internal Medicine; Visit Provider Urology
DX: N40.1 Benign prostatic hyperplasia with lower urinary tract symptoms (principal)
CPT/HCPCS: 76770

== ENCOUNTER 2023-05-27 10:15 | Outpatient (AMB) | payer MEDICARE, SELFPAY ==
[2023-05-27 10:27] VITALS: BP 132/72; PULSE 67; O2SAT 97; BMI 35.8
--- NOTE | 2023-05-27 10:27 | A.OFFVIS_ITS ---
Intake Vital Signs 05/27/23 10:27 Height 5 ft 11 in Weight 256 lb 13.416 oz BMI 35.8 BP 132/72 Blood Pressure Location Lt brachial Position Sitting Pulse 67 Pulse Source Pulse Oximeter Pulse Oximetry (%) 97 Oxygen Delivery Method Room Air Intake Visit Reasons: Obstructive sleep apnea Intake Note: pt is here for follow up and states he is feeling good today, Merchandiser Required: No Allergies animal dander Allergy (Intermediate, Verified 05/27/23 10:51) itchy eyes / runny nose metformin [METFORMIN] Allergy (Unknown, Verified 05/27/23 10:51) KIDNEY FAILURE, anaphylaxis Medication List - Last Reconciled 05/27/23 by Garcia Griffiths MD amlodipine 5 mg PO DAILY aspirin 81 mg PO DAILY atorvastatin 80 mg PO BEDTIME brexpiprazole (Rexulti) 1 mg PO DAILY calcium 600 mg PO DAILY@1200 clonidine HCl 0.1 mg PO BEDTIME clopidogrel 75 mg PO DAILY gabapentin 1,200 mg PO TID@0900,1500,2000 [glucose tablets PO] losartan 100 mg PO DAILY magnesium oxide 400 mg PO DAILY@1200 [medical marihuana PO] melatonin 5 mg PO BEDTIME PRN methocarbamol 750 mg PO BID PRN metoprolol tartrate 1 tab PO BID multivitamin 1 tab PO DAILY nitroglycerin 0.4 mg sublingual Q5M omeprazole 40 mg PO BID sucralfate 1 g PO TID tamsulosin (Flomax) 0.4 mg PO BEDTIME trazodone 200 mg PO BEDTIME Do you need a note to return to daycare/school/sports/work: No HPI Obstructive sleep apnea HPI Details THIS 67 YEARS OLD GENTLEMAN IS HERE FOR FOLLOW-UP FOR HIS SLEEP APNEA. HE IS A REGULAR USER OF CPAP, AND IN FACT CAN NOT SLEEP WITHOUT THE USE OF CPAP. HE HAS BEEN SLEEPING 7-8 HOURS PER NIGHT, . AND HAS NO DAYTIME SLEEPINESS HE OFFERS NO ISSUES WITH THE CPAP MACHINE OR MASK. WEIGHT BROCK NO PROGRESS BECAUSE HE IS NOT ABLE TO WALK MUCH, AND EVEN THOUGH HE TRIES TO WATCH HIS DIET HE HAS NOT ABLE TO LOSE ANY WEIGHT. HOWEVER HE WELL HIS FOR BOTH HAPPY ABOUT HIS USE OF CPAP. HE HAS NO BREATHING ISSUES AND DOES NOT NEED TO USE ANY BRONCHODILATOR INHALERS. 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 at home PTSD (post-traumatic stress disorder) Anxiety and depression White matter disease MACKENZIE on CPAP Sleep apnea Back pain Chronic renal insufficiency Myocardial infarction Neurostimulator device in situ Bleeding ulcer High cholesterol HTN (hypertension) Hypoglycemia Stroke Surgical History Status post panniculectomy History of cardiac catheterization Hx of endoscopy Hx of colonoscopy History of esophagogastroduodenoscopy (EGD) Hx of abdominal surgery Hx of gastric bypass Hx of hand surgery Hx of knee surgery History of colon surgery History of back surgery Hx of hernia repair Hx of heart artery stent Social History Are you a primary home health care social worker to a significant other at home: No Do you presently have visiting nurse or other home services: No Patient Tobacco Use Status: Former Tobacco user Quit Date: 1982 Tobacco use type: Cigarette Second Hand Smoke Exposure: No Advance Directives Date on File: 03/14/21 service: No Review of Systems Const All systems reviewed & are unremarkable except as noted in HPI and below Eyes Reports no additional complaints ENT Reports no additional complaints and Reports nasal congestion (Intermittent, mild) Card Denies chest pain, Denies irregular heart rhythm, Denies leg edema, Reports dyspnea (Mild) and Reports other (Has had angioplasty and stent placement and since then feeling better) Resp Reports cough (Mild off and on), Reports dyspnea (Mild) and Denies wheezing GI Reports heartburn (GERD being controlled with omeprazole, and sucralfate) Reports no additional complaints Musc Reports abnormal gait (Uses cane) Skin/Breast Reports system reviewed and no additional complaints, except as documented Neuro Reports abnormal gait (Uses cane) and Reports focal weakness (Has mild residual weakness of the right upper and lower extremity) Psych Reports no additional complaints Aller/Immun Denies wheezing Physical Exam Vital Signs: Last Vital Signs Pulse 67 05/27/23 10:27 BP 132/72 05/27/23 10:27 Pulse Ox 97 05/27/23 10:27 Oxygen Delivery Method Room Air 05/27/23 10:27 BMI result Body Mass Index 35.8 Const General: comfortable, no acute distress, alert and awake Orientation/consciousness: patient oriented x3 HEENT Head: Yes normal to inspection General nose exam: No nasal polyps present and No nasal discharge present Face and sinus: Yes sinuses nontender Mouth: oropharynx normal Throat: Yes posterior oropharynx normal Eyes General: appearance normal, both eyes and all related structures Neck Neck: Yes normal visual inspection, Yes no lymphadenopathy, Yes trachea midline and Yes no JVD Thyroid: Thyroid normal Chest Chest palpation & inspection: normal inspection of the chest, normal palpation of entire chest wall and no tenderness Resp Other: Percussion note is resonant, good breath sounds on both sides, no wheezes rhonchi or crepitations . Effort & Inspection: normal respiratory effort Auscultation: clear to auscultation bilaterally Cardio Palpation: normal PMI Rate: regular rate Rhythm: regular rhythm Heart sounds: no gallops and no murmurs GI Palpation (GI): Soft to palpation, nontender, No hepatosplenomegaly present and no masses Auscultation: normal bowel sounds Back/Spine/Pelvis Thoracic/Lumbar Spine: thoracic and lumbar spine normal to inspection and thoraco-lumbar ROM limited Skin General skin exam: no rashes or lesions noted Neuro General: patient oriented x3 and No no focal motor deficits (He does have mild weakness of the right upper and lower extremities. ) Cranial nerves: Yes CN's II-XII intact bilaterally Extrem General: Yes normal to inspection, Yes no clubbing, cyanosis or edema and Yes no calf tenderness Psych Appearance: grossly normal and well kempt Speech and movement: Normal speech and movement present Results Reviewed Results Reviewed: HIS COMPLIANCE REPORT FOR THE LAST 30 NIGHTS IS REVIEWED AND HE HAS USED 30/30 NIGHTS, 100%. AVERAGE USE PER NIGHT 7 HOURS 58 MINUTE. CPAP=16 CMs THERE IS NO SIGNIFICANT AIR LEAK. RESIDUAL AHI ONLY 0.7 Assessment & Plan Assessment & Plan (1) Obesity (BMI 35.0-39.9 without comorbidity): Comment: Talked about his the obesity. He is aware of the fact, that he has to lose weight. He has actually gained about 10-12 lb in the last 6 months. This is due to lack of activity as he is not able to walk much or do any exercise. Code(s): E66.9 - Obesity, unspecified Plan: Once again had a good talk about his diet, and calories intake. As he can not do much exercise he has to focus more on restricting his calories intake. 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 The new CPAP machine working very well. He is very compliant and actually dependent on using CPAP. Code(s): G47.33 - Obstructive sleep apnea (adult) (pediatric); Z99.89 - Dependence on other enabling machines and devices Plan: Commended for good compliance and advised to continue using it regularly. Coding Level of Care Code Est Pt Level 3 (10520) Diagnoses Obesity (BMI 35.0-39.9 without comorbidity) E66.9 MACKENZIE on CPAP G47.33; Z99.89
== END 2023-05-27 10:52 | disposition home or self-care (01) ==
PROVIDERS: PCP Internal Medicine; Visit Provider Internal Medicine
DX: E66.9 Obesity, unspecified (principal); G47.33 Obstructive sleep apnea (adult) (pediatric); Z99.89 Dependence on other enabling machines and devices
CPT/HCPCS: 99213

== ENCOUNTER → 2023-05-27 10:15 | Outpatient (BNVA) | payer MEDICARE, SELFPAY | PROVIDERS: PCP Internal Medicine; Visit Provider Internal Medicine | DX: G47.33 Obstructive sleep apnea (adult) (pediatric) (principal); E66.9 Obesity, unspecified; Z68.35 Body mass index [BMI] 35.0-35.9, adult; Z99.89 Dependence on other enabling machines and devices | CPT/HCPCS: 99212 ==

== ENCOUNTER 2023-06-06 08:40 | Outpatient (AMB) | payer OTHER, SELFPAY ==
--- NOTE | 2023-06-06 08:56 | A.OFFVIS_ITS ---
Intake Intake Visit Reasons: 8w/US/PSA Intake Note: Patient presents today for a follow-up on PSA and US Results: Meds- Tamsulosin Allergies to Antibiotic- No Known Allergies Blood Thinner- Aspirin Post Void Residual: 68mL Medical Doctor Required: No Accompanied by: Allergies animal dander Allergy (Intermediate, Verified 06/06/23 09:01) itchy eyes / runny nose metformin [METFORMIN] Allergy (Unknown, Verified 06/06/23 09:01) KIDNEY FAILURE, anaphylaxis HPI HPI Comments History of Present Illness Details -06/06/2023-Broderick is here with his , he was initially evaluated on 04/15/2023 with complaints of urinary urgency and slowing of urinary stream. The patient has history of stroke and his states they were told he has white matter disease. He was empirically started on tamsulosin 0.4 mg daily. He was sent for renal ultrasound and PSA screening. I have reviewed results with him. The patient states that he does not notice a difference with the tamsulosin. He is bothered with the fact that when he gets these urge which can be every 1-2 hours he has not able to hold the urine in and has a large wetting accidents. Bladder scan PVR is within normal limits. Urinalysis positive protein. Patient states he follows with Nephrology. 05/27/2023--renal ultrasound-kidneys withi n normal limits, left kidney 2.2 cm simple cyst. Estimated prostate volume 14.1 mL. Plan discussed continue tamsulosin. Will trial Myrbetriq 25 mg daily. Review of chart: 04/15/23--Jacob is a 67-year-old male wi th history of type 2 diabetes, hypertension, hyperlipidemia, anxiety / depression, PTSD, obesity status post gastric bypass 2012, CKD-follows with Nephrology, MACKENZIE on CPAP,? chronic low back pain s/p SCS, history peptic ulcer disease with h/o bleeding ulcers,and coronary artery disease, history of stroke 2018 (states he had 3 strokes that year March 20, March 22, & April 07); He presents for evaluation for BPH and weak urinary stream and he describes times where he gets the urge and has leaked urine before getting to the bathroom. He declines prostate exam states he had 1 done at the [place] Urinalysis negative for bladder leukocytes, 2+ protein, bladder scan PVR 26 mL I have discussed that his symptoms may arise from both bladder spasms as well as enlarged prostate. I will initially trial an alpha-roldan Flomax 0.4 mg daily. Ultrasound retroperitoneum, kidneys bladder, PSA screening. 06/06/2023--Plan Continue Flomax 0.4 mg d aily, Trial Myrbetriq 25 mg daily, Follow-up 8 weeks [facility] Medical History Type 2 diabetes mellitus Obesity (BMI 35.0-39.9 without comorbidity) Myoclonic disorder On beta roldan at home PTSD (post-traumatic stress disorder) Anxiety and depression White matter disease MACKENZIE on CPAP Sleep apnea Back pain Chronic renal insufficiency Myocardial infarction Neurostimulator device in situ Bleeding ulcer High cholesterol HTN (hypertension) Hypoglycemia Stroke Surgical History Status post panniculectomy History of cardiac catheterization Hx of endoscopy Hx of colonoscopy History of esophagogastroduodenoscopy (EGD) Hx of abdominal surgery Hx of gastric bypass Hx of hand surgery Hx of knee surgery History of colon surgery History of back surgery Hx of hernia repair Hx of heart artery stent Social History Are you a primary spiritual care coordinator to a significant other at home: No Do you presently have visiting nurse or other home services: No Patient Tobacco Use Status: Former Tobacco user Quit Date: 1982 Tobacco use type: Cigarette Second Hand Smoke Exposure: No Advance Directives Date on File: 03/14/21 service: No Review of Systems Const All systems reviewed & are unremarkable except as noted in HPI and below Reports no additional complaints Eyes Reports no additional complaints ENT Reports no additional complaints Card Reports no additional complaints Resp Reports no additional complaints GI Reports no additional complaints Reports as per HPI Musc Reports no additional complaints Skin/Breast Reports system reviewed and no additional complaints, except as documented Neuro Reports no additional complaints Psych Reports no additional complaints Endo Reports no additional complaints Terrell/Lymph Reports no additional complaints Aller/Immun Reports no additional complaints Office Procedures Post Void Residual Post Residual Void Post Void Residual (PVR): [id number] Void Residual by ultrasound Results AMB Urinalysis, Automated UA Leukoctes 0 Garrick/uL Last Edit by VERA Mederos on 06/06/23 09:26 UA Nitrite Negative Last Edit by Daniel Mitchell Teri on 06/06/23 09:26 UA Urobilinogen 0.2 mg/dL Last Edit by Daniel Mitchell Teri on 06/06/23 09:2 6 UA Protein 300 mg/dL Last Edit by Daniel Mitchell Teri on 06/06/23 09:26 3+ Daniel Mitchell 06/06/23 09:26 UA pH 6.0 Last Edit by VERA Mederos on 06/06/23 09:26 UA Blood 0 Rufus/uL Last Edit by VERA Mederos on 06/06/23 09:26 UA Specific [place] 1.025 Last Edit by Daniel Mitchell [facility] on 06/06/23 09: 26 UA Ketone Negative Last Edit by VERA Mederos on 06/06/23 09:26 UA Bilirubin 1 mg/dL Last Edit by VERA Mederos on 06/06/23 09:26 1+ Daniel Mitchell 06/06/23 09:26 UA Glucose 0 mg/dL Last Edit by VERA Mederos on 06/06/23 09:26 Results Reviewed Results Reviewed: Laboratory Last Values Urine pH (Auto) 6.0 06/06/23 09:02 Specific [place] (Auto) 1.025 06/06/23 09:02 Urine Protein (Auto) 300 mg/dL 06/06/23 09:02 Glucose (UA)(Auto) 0 mg/dL 06/06/23 09:02 Urine Ketones (Auto) Negative 06/06/23 09:02 Urine Blood (Auto) 0 Rufus/uL 06/06/23 09:02 Urine Nitrite (Auto) Negative 06/06/23 09:02 Urine Bilirubin (Auto) 1 mg/dL 06/06/23 09:02 Urine Urobilinogen (Auto) 0.2 mg/dL 06/06/23 09:02 Leukocyte Esterase (Auto) 0 Garrick/uL 06/06/23 09:02 Date of Service: 05/22/23 EXAMINATION: US RETROPERITONEAL COMPLETE (RENAL) CLINICAL INFORMATION: Benign prostatic hyperplasia with lower urinary tract symptoms. COMPARISON: Limited abdominal ultrasound 02/13/2023. CT abdomen and pelvis 09/17/2022. Ultrasound abdomen complete 12/02/2017. TECHNIQUE: Real-time imaging of the kidneys and bladder. FINDINGS: RIGHT KIDNEY: 11.0 x 5.0 x 6.0 cm (SAG x AP x TRV). The kidney is normal in size, contour, and echogenicity. Renal cortical thickness is normal. No calculi or focal parenchymal lesions. No hydronephrosis. LEFT KIDNEY: 11.4 x 6.2 x 5.8 cm (SAG x AP x TRV). The kidney is normal in size, contour, and echogenicity. Renal cortical thickness is normal. No renal calculi or hydronephrosis. At the upper pole, a 2.2 cm benign, simple cyst is seen, which requires no imaging follow-up. BLADDER: Well distended. Bilateral ureteral jets are demonstrated. Prevoid bladder volume is 289 mL. Postvoid bladder volume is 41 mL. Mild debris seen within the urinary bladder. OTHER: Prostate dimensions are 3.6 x 3.4 x 2.3 cm, volume 14.8 mL. IMPRESSION: 1. Unremarkable ultrasound appearance of the kidneys. 2. There is nonspecific mild debris within the urinary bladder, for which correlation with the patient's most recent urinalysis is recommended. Assessment & Plan Assessment & Plan (1) BPH loc w urin obs/LUTS: Code(s): N40.1 - Benign prostatic hyperplasia with lower urinary tract symptoms (2) Screening PSA (prostate specific antigen): Code(s): Z12.5 - Encounter for screening for malignant neoplasm of prostate (3) Urinary urgency: Code(s): R39.15 - Urgency of urination (4) Urge incontinence of urine: Code(s): N39.41 - Urge incontinence (5) History of stroke: Code(s): Z86.73 - Personal history of transient ischemic attack (TIA), and cerebral infarction without residual deficits (6) Spastic neurogenic bladder: Code(s): N31.8 - Other neuromuscular dysfunction of bladder Plan Continue Flomax 0.4 mg daily, Trial Myrbetriq 25 mg daily, Follow-up 8 weeks Orders: Orders AMB Post Void Residual by ultrasound Today N39.8 - Other specified disorders of urinary system AMB Urinalysis Automated Today Z13.9 - Encounter for screening, unspecified Medications: New mirabegron ER (Myrbetriq) 25 mg PO DAILY 30 tabs 2RF Refilled tamsulosin (Flomax) 0.4 mg PO BEDTIME 30 caps 2RF Patient Instructions: The patient had an opportunity to ask questions regarding treatment plan. All questions were answered. Imaging, Laboratory studies and physical exam results were discussed and reviewed in detail. No major barriers to understanding were identified. The patient expressed understanding and agreement with the above treatment plan. The patient is aware they should contact our office by phone for worsening of their current condition or the appearance of new symptoms. Compliance is encouraged with any medications and followup testing that is ordered. It is a privilege to be allowed the opportunity to participate in the urologic care of your patient. If you have any questions or concerns regarding treatment for the above conditions please do not hesitate to contact me. The office telephone contact is [phone]. This note is constructed in part using voice recognition software. While every effort has been made to ensure accuracy trauma therapist errors may have been included. Yours sincerely, Cristy Hall MD Coding Level of Care Code Est Pt Level 4 (94817) Diagnoses BPH loc w urin obs/LUTS N40.1 Screening PSA (prostate specific antigen) Z12.5 Urinary urgency R39.15 Urge incontinence of urine N39.41 History of stroke Z86.73 Spastic neurogenic bladder N31.8 CPT Codes Post Residual Void - PVR CPT Code: 83034-Zuxo Void Residual by ultrasound ([id number])
== END 2023-06-06 10:08 | disposition home or self-care (01) ==
PROVIDERS: PCP Internal Medicine; Visit Provider Urology
DX: N40.1 Benign prostatic hyperplasia with lower urinary tract symptoms (principal); R39.15 Urgency of urination; N31.8 Other neuromuscular dysfunction of bladder
CPT/HCPCS: 99214

== ENCOUNTER → 2023-06-06 08:40 | Outpatient (BNVA) | payer OTHER, SELFPAY | PROVIDERS: PCP Internal Medicine; Visit Provider Urology | DX: N40.1 Benign prostatic hyperplasia with lower urinary tract symptoms (principal); N13.8 Other obstructive and reflux uropathy; R39.15 Urgency of urination; N31.8 Other neuromuscular dysfunction of bladder; Z12.5 Encounter for screening for malignant neoplasm of prostate; Z86.73 Personal history of transient ischemic attack (TIA), and cerebral infarction without residual deficits; Z79.82 Long term (current) use of aspirin; Z79.899 Other long term (current) drug therapy | CPT/HCPCS: 51798; 81003; 99212 ==

== ENCOUNTER 2023-08-08 08:47 | Outpatient (AMB) | payer OTHER, SELFPAY ==
--- NOTE | 2023-08-08 08:59 | A.OFFVIS_ITS ---
Intake Visit Reasons: 2m follow up Intake Note: Patient presents today for a follow-up: Meds- Tamsulosin & Myrbetriq Allergies to Antibiotic- No Known Allergies Blood Thinner- Aspirin Post Void Residual: 147 mL [place] Required: No Accompanied by: Allergies animal dander Allergy (Intermediate, Verified 06/06/23 09:01) itchy eyes / runny nose metformin [METFORMIN] Allergy (Unknown, Verified 06/06/23 09:01) KIDNEY FAILURE, anaphylaxis Medication List - Last Reconciled 08/08/23 by Cristy Hall MD amlodipine 5 mg PO DAILY aspirin 81 mg PO DAILY atorvastatin 80 mg PO BEDTIME brexpiprazole (Rexulti) 1 mg PO DAILY calcium 600 mg PO DAILY@1200 clonidine HCl 0.1 mg PO BEDTIME clopidogrel 75 mg PO DAILY gabapentin 1,200 mg PO TID@0900,1500,2000 [glucose tablets PO] losartan 100 mg PO DAILY magnesium oxide 400 mg PO DAILY@1200 [medical marihuana PO] melatonin 5 mg PO BEDTIME PRN methocarbamol 750 mg PO BID PRN metoprolol tartrate 1 tab PO BID mirabegron ER (Myrbetriq) 25 mg PO DAILY multivitamin 1 tab PO DAILY nitroglycerin 0.4 mg sublingual Q5M omeprazole 40 mg PO BID sucralfate 1 g PO TID tamsulosin (Flomax) 0.4 mg PO BEDTIME trazodone 200 mg PO BEDTIME trospium 20 mg PO BID 30 days HPI Comments Details: 08/08/2023--Broderick is being followed for lower urinary tract symptoms of urgency is slowing of the stream. He was last seen in the office 06/06/2023, Myrbetriq 25 mg was prescribed, he is also prescribed tamsulosin. Comorbidity-diabetes, history of stroke and diagnosis of white matter disease. He states since being on the Myrbetriq he is not having the leakage episodes, he does continue to have frequent urges however this is manageable. The patient states that he is seen Nephrology in regards to the proteinuria. Urinalysis leukocytes negative blood negative protein 3+, bladder scan PVR 147 mL. Plan will be to continue both Myrbetriq 25 mg and tamsulosin 0.4 mg, PSA screening follow-up in 9 months. Review of chart: -06/06/2023-Broderick is here with his , he was initially evaluated on 04/15/2023 with complaints of urinary urgency and slowing of urinary stream. The patient has history of stroke and his states they were told he has white matter disease. He was empirically started on tamsulosin 0.4 mg daily. He was sent for renal ultrasound and PSA screening. I have reviewed results with him. The patient states that he does not notice a difference with the tamsulosin. He is bothered with the fact that when he gets these urge which can be every 1-2 hours he has not able to hold the urine in and has a large wetting accidents. Bladder scan PVR is within normal limits. Urinalysis positive protein. Patient states he follows with Nephrology. 05/27/2023--renal ultrasound-kidneys within normal limits, left kidney 2.2 cm simple cyst. Estimated prostate volume 14.1 mL. Plan discussed continue tamsulosin. Will trial Myrbetriq 25 mg daily. 04/15/23--Jacob is a 67-year-old male with history of type 2 diabetes, hypertension, hyperlipidemia, anxiety / depression, PTSD, obesity status post gastric bypass 2012, CKD-follows with Nephrology, MACKENZIE on CPAP,? chronic low back pain s/p SCS, history peptic ulcer disease with h/o bleeding ulcers,and coronary artery disease, history of stroke 2018 (states he had 3 strokes that year March 20, March 22, & April 07); He presents for evaluation for BPH and weak urinary stream and he describes times where he gets the urge and has leaked urine before getting to the bathroom. He declines prostate exam states he had 1 done at the [place]. Urinalysis negative for bladder leukocytes, 2+ protein, bladder scan PVR 26 mL. I have discussed that his symptoms may arise from both bladder spasms as well as enlarged prostate. I will initially trial an alpha-roldan Flomax 0.4 mg daily. Ultrasound retroperitoneum, kidneys bladder, PSA screening. 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 at home PTSD (post-traumatic stress disorder) Anxiety and depression White matter disease MACKENZIE on CPAP Sleep apnea Back pain Chronic renal insufficiency Myocardial infarction Neurostimulator device in situ Bleeding ulcer High cholesterol HTN (hypertension) Hypoglycemia Stroke Surgical History Status post panniculectomy History of cardiac catheterization Hx of endoscopy Hx of colonoscopy History of esophagogastroduodenoscopy (EGD) Hx of abdominal surgery Hx of gastric bypass Hx of hand surgery Hx of knee surgery History of colon surgery History of back surgery Hx of hernia repair Hx of heart artery stent Social History Are you a primary managed care analyst to a significant other at home: No Do you presently have visiting nurse or other home services: No Patient Tobacco Use Status: Former Tobacco user Tobacco use type: Cigarette Second Hand Smoke Exposure: No Advance Directives Date on File: 03/14/21 service: No Review of Systems Const All systems reviewed & are unremarkable except as noted in HPI and below Reports no additional complaints Eyes Reports no additional complaints ENT Reports no additional complaints Card Reports no additional complaints Resp Reports no additional complaints GI Reports no additional complaints Reports as per HPI Musc Reports no additional complaints Skin/Breast Reports system reviewed and no additional complaints, except as documented Neuro Reports no additional complaints Psych Reports no additional complaints Endo Reports no additional complaints Terrell/Lymph Reports no additional complaints Aller/Immun Reports no additional complaints Office Procedures Post Void Residual Post Residual Void Post Void Residual (PVR): [id number] Void Residual by ultrasound Results AMB Urinalysis, Automated UA Leukoctes 0 Garrick/uL Last Edit by VERA Mederos on 08/08/23 09:17 UA Nitrite Negative Last Edit by VERA Mederos on 08/08/23 09:17 UA Urobilinogen 0.2 mg/dL Last Edit by VERA Mederos on 08/08/23 09:1 7 UA Protein 300 mg/dL Last Edit by VERA Mederos on 08/08/23 09:17 + Daniel Mitchell 08/08/23 09:17 UA pH 6.0 Last Edit by VERA Mederos on 08/08/23 09:17 UA Blood 0 Rufus/uL Last Edit by VERA Mederos on 08/08/23 09:17 UA Specific [place] 1.015 Last Edit by VERA Mederos on 08/08/23 09: 17 UA Ketone Negative Last Edit by VERA Mederos on 08/08/23 09:17 UA Bilirubin 0 mg/dL Last Edit by VERA Mederos on 08/08/23 09:17 UA Glucose 0 mg/dL Last Edit by VERA Mederos on 08/08/23 09:17 Results Reviewed Results Reviewed: Laboratory Last Values Urine pH (Auto) 6.0 08/08/23 09:12 Specific [place] (Auto) 1.015 08/08/23 09:12 Urine Protein (Auto) 300 mg/dL 08/08/23 09:12 Glucose (UA)(Auto) 0 mg/dL 08/08/23 09:12 Urine Ketones (Auto) Negative 08/08/23 09:12 Urine Blood (Auto) 0 Rufus/uL 08/08/23 09:12 Urine Nitrite (Auto) Negative 08/08/23 09:12 Urine Bilirubin (Auto) 0 mg/dL 08/08/23 09:12 Urine Urobilinogen (Auto) 0.2 mg/dL 08/08/23 09:12 Leukocyte Esterase (Auto) 0 Garrick/uL 08/08/23 09:12 Date of Service: 05/22/23 EXAMINATION: US RETROPERITONEAL COMPLETE (RENAL) CLINICAL INFORMATION: Benign prostatic hyperplasia with lower urinary tract symptoms. COMPARISON: Limited abdominal ultrasound 02/13/2023. CT abdomen and pelvis 09/17/2022. Ultrasound abdomen complete 12/02/2017. TECHNIQUE: Real-time imaging of the kidneys and bladder. FINDINGS: RIGHT KIDNEY: 11.0 x 5.0 x 6.0 cm (SAG x AP x TRV). The kidney is normal in size, contour, and echogenicity. Renal cortical thickness is normal. No calculi or focal parenchymal lesions. No hydronephrosis. LEFT KIDNEY: 11.4 x 6.2 x 5.8 cm (SAG x AP x TRV). The kidney is normal in size, contour, and echogenicity. Renal cortical thickness is normal. No renal calculi or hydronephrosis. At the upper pole, a 2.2 cm benign, simple cyst is seen, which requires no imaging follow-up. BLADDER: Well distended. Bilateral ureteral jets are demonstrated. Prevoid bladder volume is 289 mL. Postvoid bladder volume is 41 mL. Mild debris seen within the urinary bladder. OTHER: Prostate dimensions are 3.6 x 3.4 x 2.3 cm, volume 14.8 mL. IMPRESSION: 1. Unremarkable ultrasound appearance of the kidneys. 2. There is nonspecific mild debris within the urinary bladder, for which correlation with the patient's most recent urinalysis is recommended. Assessment & Plan Assessment & Plan (1) BPH loc w urin obs/LUTS: Code(s): N40.1 - Benign prostatic hyperplasia with lower urinary tract symptoms Category: Medical (2) Screening PSA (prostate specific antigen): Code(s): Z12.5 - Encounter for screening for malignant neoplasm of prostate Category: Medical (3) Urinary urgency: Code(s): R39.15 - Urgency of urination Category: Medical (4) Urge incontinence of urine: Code(s): N39.41 - Urge incontinence Category: Medical (5) History of stroke: Code(s): Z86.73 - Personal history of transient ischemic attack (TIA), and cerebral infarction without residual deficits Category: Medical (6) Spastic neurogenic bladder: Code(s): N31.8 - Other neuromuscular dysfunction of bladder Category: Medical Plan Plan will be to continue both Myrbetriq 25 mg and tamsulosin 0.4 mg, PSA screening follow-up in 9 months. Orders: Orders AMB Post Void Residual by ultrasound Today N39.8 - Other specified disorders of urinary system AMB Urinalysis Automated Today Z13.9 - Encounter for screening, unspecified Medications: Refilled mirabegron ER (Myrbetriq) 25 mg PO DAILY 90 tabs 3RF tamsulosin (Flomax) 0.4 mg PO BEDTIME 90 caps 3RF Patient Instructions: The patient had an opportunity to ask questions regarding treatment plan. The patient expressed understanding and agreement with the above treatment plan. The patient is aware they should contact our office by phone for worsening of their current condition or the appearance of new symptoms. Compliance is encouraged with any medications and followup testing that is ordered. It is a privilege to be allowed the opportunity to participate in the urologic care of your patient. If you have any questions or concerns regarding treatment for the above conditions please do not hesitate to contact me. The office telephone contact is [phone]. This note is constructed in part using voice recognition software. While every effort has been made to ensure accuracy hr director errors may have been included. Yours sincerely, Cristy Hall MD Coding Level of Care Code Est Pt Level 4 (24676) Diagnoses BPH loc w urin obs/LUTS N40.1 Screening PSA (prostate specific antigen) Z12.5 Urinary urgency R39.15 Urge incontinence of urine N39.41 History of stroke Z86.73 Spastic neurogenic bladder N31.8 CPT Codes Post Residual Void - PVR CPT Code: 99455-[place]oir Void Residual by ultrasound ([id number])
== END 2023-08-08 09:36 | disposition home or self-care (01) ==
PROVIDERS: PCP Internal Medicine; Visit Provider Urology
DX: N40.1 Benign prostatic hyperplasia with lower urinary tract symptoms (principal); R39.15 Urgency of urination; N31.8 Other neuromuscular dysfunction of bladder; Z86.73 Personal history of transient ischemic attack (TIA), and cerebral infarction without residual deficits
CPT/HCPCS: 99213

== ENCOUNTER → 2023-08-08 08:47 | Outpatient (BNVA) | payer OTHER, SELFPAY | PROVIDERS: PCP Internal Medicine; Visit Provider Urology | DX: N40.1 Benign prostatic hyperplasia with lower urinary tract symptoms (principal); R39.15 Urgency of urination; N39.41 Urge incontinence; Z12.5 Encounter for screening for malignant neoplasm of prostate; N31.8 Other neuromuscular dysfunction of bladder; Z86.73 Personal history of transient ischemic attack (TIA), and cerebral infarction without residual deficits | CPT/HCPCS: 51798; 81003; 99212 ==

== ENCOUNTER 2023-11-26 10:31 | Outpatient (AMB) | payer MEDICARE, SELFPAY ==
[2023-11-26 10:44] VITALS: BP 164/96; PULSE 62; O2SAT 97; BMI 34.4
--- NOTE | 2023-11-26 10:44 | MHC.OFFVIS ---
Vital Signs 11/26/23 10:44 Height 5 ft 11 in Weight 247 lb BMI 34.4 BP 164/96 H Blood Pressure Location Lt brachial Position Sitting Pulse 62 Pulse Source Pulse Oximeter Pulse Oximetry (%) 97 Oxygen Delivery Method Room Air Intake Visit Reasons: Obstructive sleep apnea Intake Note: pt is here for follow up and states he is using his cpap every night. Merchandising Coordinator Required: No Allergies animal dander Allergy (Intermediate, Verified 11/26/23 11:03) itchy eyes / runny nose metformin [METFORMIN] Allergy (Unknown, Verified 11/26/23 11:03) KIDNEY FAILURE, anaphylaxis Medication List - Last Reconciled 11/26/23 by Garcia Griffiths MD amlodipine 5 mg PO DAILY armodafinil 100 mg PO QAM aspirin 81 mg PO DAILY atorvastatin 80 mg PO BEDTIME brexpiprazole (Rexulti) 1 mg PO DAILY calcium 600 mg PO DAILY@1200 clonidine HCl 0.1 mg PO BEDTIME clopidogrel 75 mg PO DAILY gabapentin 1,200 mg PO TID@0900,1500,2000 [glucose tablets PO] losartan 100 mg PO DAILY magnesium oxide 400 mg PO DAILY@1200 [medical marihu[place] PO] melatonin 5 mg PO BEDTIME PRN methocarbamol 750 mg PO BID PRN metoprolol tartrate 1 tab PO BID mirabegron ER (Myrbetriq) 25 mg PO DAILY multivitamin 1 tab PO DAILY nitroglycerin 0.4 mg sublingual Q5M omeprazole 40 mg PO BID sucralfate 1 g PO TID tamsulosin (Flomax) 0.4 mg PO BEDTIME trazodone 200 mg PO BEDTIME trospium 20 mg PO BID 30 days Do you need a note to return to daycare/school/sports/work: No HPI HPI Obstructive sleep apnea: Details: This 68 years old gentleman, is of obstructive sleep apnea, and residual daytime sleepiness, comes after 6 months for follow-up. Uses his CPAP very regularly every night and sleeps well. He does use modafinil 100 mg every morning and denies any daytime sleepiness. He has slightly impaired locomotion so he does not walk much. But he walks about 1 mi with his dog. He is trying to cut down on the carbs intake. Has lost about 6-7 lb of weight in the last 6 months. He has no issues with the use of CPAP. COUNTS INCLUDE 234 BEDS AT THE [facility] Medical History Type 2 diabetes mellitus Obesity (BMI 35.0-39.9 without comorbidity) Myoclonic disorder On beta roldan at home PTSD (post-traumatic stress disorder) Anxiety and depression White matter disease MACKENZIE on CPAP Sleep apnea Back pain Chronic renal insufficiency Myocardial infarction Neurostimulator device in situ Bleeding ulcer High cholesterol HTN (hypertension) Hypoglycemia Stroke Surgical History Status post panniculectomy History of cardiac catheterization Hx of endoscopy Hx of colonoscopy History of esophagogastroduodenoscopy (EGD) Hx of abdominal surgery Hx of gastric bypass Hx of hand surgery Hx of knee surgery History of colon surgery History of back surgery Hx of hernia repair Hx of heart artery stent Social History Are you a primary caregiver assisted living to a significant other at home: No Do you presently have visiting nurse or other home services: No Patient Tobacco Use Status: Former Tobacco user Tobacco use type: Cigarette Second Hand Smoke Exposure: No Advance Directives Date on File: 03/14/21 service: No Review of Systems Const All systems reviewed & are unremarkable except as noted in HPI and below Eyes Reports no additional complaints ENT Reports no additional complaints and Reports nasal congestion (Intermittent, mild) Card Denies chest pain, Denies irregular heart rhythm, Denies leg edema, Reports dyspnea (Mild) and Reports other (Has had angioplasty and stent placement and since then feeling better) Resp Reports cough (Mild off and on), Reports dyspnea (Mild) and Denies wheezing GI Reports heartburn (GERD being controlled with omeprazole, and sucralfate) Reports no additional complaints Musc Reports abnormal gait (Uses cane) Skin/Breast Reports system reviewed and no additional complaints, except as documented Neuro Reports abnormal gait (Uses cane) and Reports focal weakness (Has mild residual weakness of the right upper and lower extremity) Psych Reports no additional complaints Aller/Immun Denies wheezing Physical Exam Vital Signs: Last Vital Signs Pulse 62 11/26/23 10:44 BP 164/96 H 11/26/23 10:44 Pulse Ox 97 11/26/23 10:44 Oxygen Delivery Method Room Air 11/26/23 10:44 BMI result Body Mass Index 34.4 Const General: comfortable, no acute distress, alert and awake Orientation/consciousness: patient oriented x3 HEENT Head: Yes normal to inspection General nose exam: No nasal polyps present and No nasal discharge present Face and sinus: Yes sinuses nontender Mouth: oropharynx normal Throat: Yes posterior oropharynx normal Eyes General: appearance normal, both eyes and all related structures Neck Neck: Yes normal visual inspection, Yes no lymphadenopathy, Yes trachea midline and Yes no JVD Thyroid: Thyroid normal Chest Chest palpation & inspection: normal inspection of the chest, normal palpation of entire chest wall and no tenderness Resp Other: Percussion note is resonant, good breath sounds on both sides, no wheezes rhonchi or crepitations . Effort & Inspection: normal respiratory effort Auscultation: clear to auscultation bilaterally Cardio Palpation: normal PMI Rate: regular rate Rhythm: regular rhythm Heart sounds: no gallops and no murmurs GI Palpation (GI): Soft to palpation, nontender, No hepatosplenomegaly present and no masses Auscultation: normal bowel sounds Back/Spine/Pelvis Thoracic/Lumbar Spine: thoracic and lumbar spine normal to inspection and thoraco-lumbar ROM limited Skin General skin exam: no rashes or lesions noted Neuro General: patient oriented x3 and No no focal motor deficits (He does have mild weakness of the right upper and lower extremities. ) Cranial nerves: Yes CN's II-XII intact bilaterally Extrem General: Yes normal to inspection, Yes no clubbing, cyanosis or edema and Yes no calf tenderness Psych Appearance: grossly normal and well kempt Speech and movement: Normal speech and movement present Results Reviewed Results Reviewed: Compliance report is reviewed for the last 30 nights. He has been using every night. 100% of the time Average use it per night. 7 hours 13 minutes Pressure is set. at 19 cm There is a mild air leak. Residual AHI only 0.8 Assessment & Plan Assessment & Plan (1) Obesity (BMI 35.0-39.9 without comorbidity): Comment: Talked about his the obesity. He is aware of the fact, that he has to lose weight. He has lost about 6 LBs since last visit . Code(s): E66.9 - Obesity, unspecified Category: Medical Plan: Commended for losing. Some Weight, encouraged to walk daily. 1-2 miles if he can Cut down the intake of carbohydrates. 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 The new CPAP machine working very well. He is very compliant and actually dependent on using CPAP. Code(s): G47.33 - Obstructive sleep apnea (adult) (pediatric); Z99.89 - Dependence on other enabling machines and devices Category: Medical Plan: Commended for good compliance and encouraged to keep on using CPAP regularly Coding Level of Care Code Est Pt Level 3 (70166) Diagnoses Obesity (BMI 35.0-39.9 without comorbidity) E66.9 MACKENZIE on CPAP G47.33; Z99.89
== END 2023-11-26 11:04 | disposition home or self-care (01) ==
PROVIDERS: PCP Internal Medicine; Visit Provider Internal Medicine
DX: E66.9 Obesity, unspecified (principal); G47.33 Obstructive sleep apnea (adult) (pediatric); Z99.89 Dependence on other enabling machines and devices
CPT/HCPCS: 99213

== ENCOUNTER → 2023-11-26 10:31 | Outpatient (BNVA) | payer MEDICARE, SELFPAY | PROVIDERS: PCP Internal Medicine; Visit Provider Internal Medicine | DX: G47.33 Obstructive sleep apnea (adult) (pediatric) (principal); E66.9 Obesity, unspecified; Z68.34 Body mass index [BMI] 34.0-34.9, adult; Z99.89 Dependence on other enabling machines and devices | CPT/HCPCS: 99212 ==

== ENCOUNTER 2024-04-27 10:44 | Outpatient (REF) | payer OTHER, SELFPAY ==
--- OUTSIDE RECORDS SUMMARY | 2024-04-27 12:10 | XMS_ITS | Clinical Summary ---
Author Organization [facility], Address [address] [place] [address] Phone Care Team Providers Care Concrete Finishing Machine Operator Name Role Phone Luis F Lozada DO Primary Care Provide r Allergies Active Allergy Reactions Criticality Noted Date Comments Aspirin 09/08/2020 Lactose Diarrhea 08/02/2021 Metformin Other (see comments) 02/25/2019 Medications clopidogrel (PLAVIX) 75 MG tablet Take 1 tablet by mouth 1 (one) time each day Active metoprolol tartrate (LOPRESSOR) 25 MG tablet Take 1 tablet by mouth 2 (two) times a day 7 Active traZODone (DESYREL) 100 MG tablet Take 1 tablet by mouth at bed time 7 Active atorvastatin (LIPITOR) 80 MG tablet Take 80 mg by mouth 1 (one) time each day Active gabapentin (NEURONTIN) 600 MG tablet TAKE 2 TABLETS BY MOUTH EVERY 8 HOURS 1 Active magnesium oxide (MAG-OX) 400 MG tablet Take 1 tablet by mouth 1 (one) time each day 1 Active omeprazole (PriLOSEC) [address] capsule Take 40 mg by mouth 1 Active isosorbide mononitrate (IMDUR) 30 MG 24 hr tablet Take 30 mg by mouth 1 (one) time each day Do not crush or chew. Active nitroglycerin (NITROSTAT) 0.[address] 0.4 mg under the tongue every 5 (five) minutes if needed for chest pain Active methocarbamol (ROBAXIN) 750 MG tablet 1 Active oxyCODONE-acetam inophen (PERCOCET) 5-325 MG per tablet TAKE 2 TABLETS BY MOUTH EVERY 4 HOURS NEEDED FOR MODERATE PAIN 1 Active sucralfate (CARAFATE) 1 g tablet Active losartan (COZAAR) 50 MG tablet Take 2 tablets (100 mg total) by mouth 1 (one) time each day Active aspirin (ST OSCAR) 81 MG EC tablet Take 81 mg by mouth 1 (one) time each day Active Brexpiprazole 1 MG tablet Take by mouth 1 (one) time each day Active Active Problems Problem Noted Date Diagnosed Date Proteinuria, not otherwise specified 08/06/2023 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 02/06/2021 Gastroesophageal reflux disease 02/06/2021 Type 2 diabetes mellitus 06/20/2020 Chronic kidney disease stage 2 02/25/2019 Essential hypertension 02/25/2019 Resolved Problems Problem Noted Date Diagnosed Date Resolved Date Myocardial infarction 06/20/20202020 Overview (06/20/2020): stent 2004 Acute nontraumatic kidney injury 06/20/2020 02/03/2021 Albuminuria 02/25/2019 02/03/2021 Anemia 02/25/2019 02/03/2021 Dyslipidemia 02/25/2019 02/03/2021 Renal disorder due to type 2 diabetes mellitus 02/25/2019 02/03/2021 Encounters Date Type Department Care Team Description 02/25/2024 2:45 PM EST Office Visit [facility], [address] [place] [address] Camilo Terrell MD Proteinuria, not otherwise specified (Primary Dx); Essential hypertension from Last 3 Months Immunizations Name Administration Dates Next Due Influenza Split 12/19/2020 Influenza Split High Dose Pr eservative Free IM 10/17/2015,12/01/2014 Influenza, Quadrivalent, Preservative Free 10/08,10/24/2018 Influenza, Unspecified 10/28/2021,09/19/2019,02/2018 Pfizer SARS-COV-2 11/29/2020,05/30/2020,05/10/19 21 Pneumococcal Conjugate 13-Valent 12/01/2014 SARS-CoV-2, Unspecified 01/05/2022 Shingrix 01/23/2023,10/31/2022 Tdap 09/24/2021 Family History Medical History Relation Comments Diabetes Father DM 2/type 2 Diabetes Mother DM 2/type 2 Heart disease Mother CHF/congestive h eart failure Hypertension Mother Relation Status Comments Father Unknown Mother Unknown Social History Tobacco Use Types Packs/Day Years Used Date Smoking Tobacco: Former Cigarettes Q uit: 08/06/1989 Tobacco Cessation:Counseling Given: Not Answered Alcohol Use Standard Drinks/Week Comments No 0 (1 standard drink = 0.6 oz pur e alcohol) Sex and Gender Information Value Date Recorded Sex Assigned at Not on file Legal Sex Male 4:35 PM EST Gender Identity Not on file Sexual Orientation Not on file Last Filed Vital Signs Vital Sign Reading Time Taken Comments Blood Pressure 154/78 07/30/2022 1:55 PM EDT Pulse - - Temperature - - Respiratory Rate - - Oxygen Saturation - - Inhaled Oxygen Concentration - - Weight 114 kg (252 lb) 07/30/2022 1:55 PM EDT Height 180.3 cm (5' 11 ) 07/30/2022 1:55 PM EDT Body Mass Index 35.15 07/30/2022 1:55 PM EDT Plan of Treatment Upcoming Encounters Date Type Department Care Team (Late st Contact Info) Description 03/09/2025 2:00 PM EST Office Visit [facility], [address] [address] Camilo Terrell MD [address] [place] [phone] Health Maintenance Due Date Last Done Comments Colorectal Cancer Screening: Annual FOBT 2006 Colorectal Cancer Screening: Colonoscopy 2006 Colorectal Cancer Screening: Sigmoidoscopy 2006 Pneumococcal Vaccine: 65+ Years (2 of 2 - PPSV23 or PCV20) 01/26/2015 12/01/2014 Diabetes: Pedal Pulse Checked 02/25/2019 Diabetes: Sensory Foot Exam 02/25/2019 Diabetes: Visual Foot Exam 02/25/2019 Diabetes: Hemoglobin A1C 10/25/2022 023, 02/21/2021, 02/21/2021, Additional history exists Influenza Vaccine (#1) 2023 3, 10/28/2021, 12/19/2020, Additional history exists Diabetes: Ophthalmology Exam 12/18/2024 12/19/2023, 12/04/2022 Hepatitis B Vaccine Aged Out No longe r eligible based on patient's age to complete this topic Procedures Procedure Name Priority Date/Time Associated Diagnosis Comments HEMOGLOBIN A1C Routine 07/25/2022 10:20 AM EDT Type 2 diabetes mellitus, not otherwise specified (HCC) from Last 3 Months or Most Recently Relevant to Health Maintenance Results * (ABNORMAL) Hemoglobin A1c (07/25/2022 10:20 AM EDT) Hemoglobin A1C 5.9(H) (4.0-5.6) % [facility] Comment: MONITORING: In known diabetic patients, hemoglobin A1c targets should be discussed with health care provider. DIAGNOSTIC USE: ??The [place] Diabetes Association (ADA) and the World Health Organization (WHO) recommend the use of HbA1c to diagnose diabetes using a threshold of 6.5%. Patients who have an HbA1c between 5.7% and 6.4% are considered at increased risk for developing diabetes in the future. CAUTION: Falsely low HbA1c results may be observed in patients with hemolytic anemia, homozygous forms of abnormal hemoglobin (e.g. SS, CC, SC), , recent blood loss or hemoglobin F greater than 7%. Fructosamine may be used as an alternate test in these cases. REFERENCE: ADA: Standards of Medical Care in Diabetes 2020, The Journal of Clinical and Applied Research and Education Volume 43, Supplement 1 Testing performed or reported by [facility] Reference [employer], a Service of [facility], [address] [place] [address] Larry Syed MD, Placing Judge SIRISHA# [id number] Blood (Blood, Venous) 07/25/2022 10:20 AM EDT 07/25/2022 10:48 AM EDT Calvin LOUIE LAB BLOOD ORDERABLES Final Re sult [facility] Organization Address City/State/ZIP Co de Phone Number [facility] from Last 3 Months or Most Recently Relevant to Health Maintenance Insurance MEDICARE [facility] Care Teams Concrete Finishing Machine Operator Relationship Specialty Start Date End Date Luis F Lozada DO [address] [place] [address] PCP - General Internal Medicine 02/03/21
--- OUTSIDE RECORDS SUMMARY | 2024-04-27 12:10 | XMS_ITS | Encounter Summary ---
Author Organization [facility], Address [address] [place] [address] Phone Care Team Providers Care Statistics Intern Name Role Phone Luis F Lozada DO Primary Care Provide r Encounter Details Date Type Department Care Team (Late st Contact Info) Description 08/02/2021 Documentation Only [facility] [address] [place] [address] Camilo Terrell MD [address] [place] [address] [place] [address] Social History Tobacco Use Types Packs/Day Years Used Date Smoking Tobacco: Former Cigarettes Q uit: 08/06/1989 Alcohol Use Standard Drinks/Week Comments No 0 (1 standard drink = 0.6 oz pur e alcohol) Sex and Gender Information Value Date Recorded Sex Assigned at Not on file Legal Sex Male 4:35 PM EST Gender Identity Not on file Sexual Orientation Not on file documented as of this encounter Plan of Treatment Upcoming Encounters Date Type Department Care Team (Late Contact Info) Description 03/09/2025 2:00 PM EST Office [facility] [address] [address] Camilo Terrell MD [address] [place] [address] documented as of this encounter Visit Diagnoses Not on filedocumented in this encounter Care Teams Statistics Intern Relationship Specialty Start Date End Date Luis F Lozada DO [address] [facility] [address] [facility] [address] [place] [address] PCP - General Internal Medicine 02/03/21 documented as of this encounter
--- OUTSIDE RECORDS SUMMARY | 2024-04-27 12:10 | XMS_ITS | Patient Health Record ---
Author Organization [facility] Address [address] [place] [address] Care Team Providers Care Parcel Post Order Clerk Name Role Phone AMY GONZALEZ D.O Primary Care Provider Kristine taylorkathGilbert Haro [phone] Allergies Allergen (clinical drug ingredient) Drug/Non Drug Allergy documented on EMR Reaction Allergy Type Onset Date Status metformin Metformin HCl kidney failure Drug Allergy Active Reason For Referral No Information Medications Medication SIG (Take, Route, Frequency, Duration) Notes Start Date End Date Status Gabapentin 400 MG 3 capsule Orally Three times a day Active Magnesium Oxide 400 MG 1 tablet as neede d Orally Once a day for 30 day(s) Active traZODone HCl 100 MG 1 tablet at bedtime Orally at bedtime Active Calcium Carbonate 1250 (500 Ca) MG 1 tablet Orally Once a day for 30 day(s) Active Multivitamin Adults - as directed Orally Active Tylenol 325 MG 1 tablet as needed Orally as needed Active Methocarbamol 750 MG 1 tablet Orally every 12 hours as needed PRN muscle spasms Active Sucralfate 1 GM 1 tablet on an empty stomach Orally Twice a day Active Dicyclomine HCl 10 MG 1 or 2 capsules Orally Every 6 hours as needed for abdominal discomfort/cramps for 30 day(s) 09/16/2022 Active amLODIPine Besylate 5 MG Oral for 90 Active Losartan Potassium 100 MG Oral for 90 Active Zortman 3 1200 MG 1 capsule Orally Once a day for 30 day(s) Not-Taking Multivitamin Active MiraLax - 1 packet mixed with 8 ounces of fluid Orally Once a day for 30 day(s) Not-Taking E400 Active Dicyclomine HCl 10 MG 1-2 capsules Orally Four times a day prn abdominal cramps/discomfort for 30 day(s) 08/10/2018 Not-Taking Glucose Not-Taking Pantoprazole Sodium 40 MG 1 tablet Orally Once a day Not-Taking Melatonin Active Brexpiprazole 1 MG 1 tablet Orally Once a day for 30 day(s) Active buPROPion HCl ER (XL) 300 MG 1 tablet in the morning Orally Once a day for 30 day(s) Active Omeprazole 40 MG 1 capsule Orally BID Active Metoprolol Tartrate 25 MG 1 tablet Orally Twice a day Active Atorvastatin Calcium 40 MG 1 tablet Orally Once a day Active Aspir-81 81 MG 1 tablet Orally Once a day Active Immunizations Vaccine Route Administration Date Status Comme nts Influenza Unknown 12/19/2020 Administered Social History Alcohol Screen Question Answer Notes Did you have a drink containing alcohol in the p ast year? No Points 0 Interpretation Negative Section Notes: Nonsmoker > 10 yrs; no alcoh ol in 10 yrs-previous heavy drinker Nonsmoker > 10 yrs; no alcohol in 10 yrs-previous heavy drinker Vapes marijuana for back pain several times per day Nonsmoker > 10 yrs; no alcohol in 10 yrs-previous heavy drinker Vapes and marijuana for back pain several times per day medical marijuana card [place] Nonsmoker > 10 yrs; no alcohol in 10 yrs-previous heavy drinker Vapes and marijuana for back pain several times per day medical marijuana card [place]ina Nonsmoker > 10 yrs; no alcohol in 10 yrs-previous heavy drinker Vapes and marijuana for back pain several times per day medical marijuana card [place]ina Nonsmoker > 10 yrs; no alcohol in 10 yrs-previous heavy drinker Vapes and marijuana for back pain several times per day medical marijuana card [place] Problems Problem Type SNOMED Code ICD Code Onset Dates Problem Status W/U Status Risk Notes Problem 109634049 Encounter for screening for malignant neoplasm of colon (Z12.11) Active confirmed Problem History of adenomatous polyp of colon (560513444) History of adenomatous polyp of colon (Z86.010) Active confirmed Problem 61383060 Abdominal pain, epigastric (R10.13) Active confirmed Problem 913987239 Elevated liver function tests (R79.89) Active confirmed Problem 147489019 Diverticulosis (K57.90) Active confirmed Problem 21660995 Oropharyngeal dysphagia (R13.12) Active confirmed Problem 811453782 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) Active confirmed Problem 90627104 Pharyngoesophage al dysphagia (R13.14) Active confirmed Problem Esophageal reflux finding (559229534) Gastroesophageal reflux (K21.9) Active confirmed Problem 205352147 Abdominal pain, generalized (R10.84) Active confirmed Problem 09987675 Upper abdominal pain (R10.10) Active confirmed Problem Diverticulosis of colon (089675208) Diverticulosis of colon (K57.30) Active confirmed Problem 73728412 Chest pain, unspecified type (R07.9) Active confirmed Problem History of gastrointestinal tract bypass (624167770) Hx of Billroth II operation (Z98.0) Active confirmed Plan Of Treatment Pending Test Test Name Order Date LIVER PROFILE 09/10/2022 LIVER PROFILE 09/19/2022 CBC w DIFF 09/10/2022 CBC w DIFF 09/19/2022 XR BARIUM SWALLOW-ESOPHAGUS 09/19/2022 XR GI SERIES 09/19/2022 Prothrombin Time INR 09/19/2022 Amylase 09/19/2022 Amylase 09/10/2022 Lipase 09/19/2022 Lipase 09/10/2022 US abdomen complete 09/10/2022 Future Test Test Name Order Date COLONOSCOPY 02/04/2014 UPPER GI ENDOSCOPY 02/23/2021 COLONOSCOPY 09/05/2021 Insurance Providers Payer Name Payer Address Payer Phone Subscriber Number Group Number Insured Name Patient Relationship to Insured Coverage Start Date Coverage End Date MEDICARE OF [place] [address] [place]OSS [id number] TAJ DE LA ROSA Self - patient is the insured [employer] PREF[employer] [address] [place] [address] [id number] TAJ DE LA ROSA Self - patient is the insured Medical (General) History Medical History History ICD Code Screening Colonoscopy 2008-- 1 small tubular adenoma removed; negative limited(due to prep) colonoscopy in 2014 Coronary artery disease with heart attack in 2004 with placement of a coronary artery stent--no problems since Denies Lung disease Sees Dr. Ayoub from renal, but kidneys are now normal/ 2018 kidney ds type [address] Terrell Sleep apnea--uses CPAP Previous DM-resolved after weight loss Hyperlipidemia Back pain UGI bleed due to an anastomo tic ulcer in 10/2016--had an EGD at that time at [facility] [place] [place]; describes a neg. UGI at [facility] in 09/2017 for abdominal pain CVA's in 03/2018 and 04/2018-- left hand and left face numbness, some speech and swallowing issues, right leg and hand weakness PTSD UGI Bleed in 07/2018 due to a nastomotic ulcers--- he underwent an upper endoscopy at that time and was subsequently discharged on omeprazole and sucralfate--he had been on clopidogrel and aspirin at that time as well CAD-new stent in 11/2020 ariel Lobato--Dr. Lobato called me in 01/2021 regarding the patient's apical chest pain with normal EKGs and negative blood work in regard to any sign of OH--Dr. Lobato asked me to perform an upper endoscopy for further assessment White matter disease - 2021 Myoclonus Neg. cardiac cath in 06/2021 Negative EGD in 02/2021 Screening colonoscopy in Sep with a single tubular adenoma removed from the rectum Negative barium swallow with a barium tablet in October of 2022 other than some minimal reflux and a minimal hiatal hernia Surgical History Surgery Date(Month/Year) Hernia surgery Back surgery x 5--has neurostimulator in place Knee surgery Bowel obstruction 08/2013--treated with l aprascopic surgery at [facility] Thumb repair-left Laprascopic Gastric bypass at [facility] 2012- -lost 130# Panniculectomy 2018
--- OUTSIDE RECORDS SUMMARY | 2024-04-27 12:10 | XMS_ITS | Encounter Summary ---
Author Organization [facility], Address [address] [place] [address] Phone Care Team Providers Care Outreach Rep Name Role Phone Luis F Lozada DO Primary Care Provide r Encounter Details Date Type Department Care Team (Late st Contact Info) Description 08/01/2021 Documentation Only [facility] [address] [place] [address] Camilo Terrell MD [address] [place] [address] [place] [address] Social History Tobacco Use Types [...] Visit [facility] [address] [place] [address] Camilo Terrell MD [address] [place] [address] documented as of this encounter Visit Diagnoses Not on filedocumented in this encounter Care Teams Outreach Rep Relationship Specialty Start Date End Date Luis F Lozada DO [address] [facility] [address] [place] [address] PCP - General Internal Medicine 02/03/21 documented as of this encounter
--- OUTSIDE RECORDS SUMMARY | 2024-04-27 12:10 | XMS_ITS ---
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 [address] Ultrasound Report Signed Patient: Taj Cisneros Sr MR#: [id number] : 1955 Acct:[id number] Age/Sex: 67 / M ADM Date: 02/13/23 Loc: HO.HMGCX Attending Dr: Gilbert Mccloud MD Ordering Physician: Gilbert Mccloud Date of Service: 02/13/23 Procedure(s): US abdomen limited Accession Number(s): [id number] cc: Amy Benedict DO; Gilbert Mccloud EXAMINATION: US ABDOMEN LIMITED CLINICAL INFORMATION: Upper abdominal pain. COMPARISON: CT abdomen and pelvis with contrast 09/17/2022. Ultrasound abdomen complete 05/30/2022. X-ray abdomen 02/08/2015. TECHNIQUE: Real-time imaging of the right upper quadrant abdominal viscera. Limited visualization due to bowel gas. FINDINGS: PANCREAS: Limited visualization of pancreatic tail and head. Imaged portion of pancreatic body is unremarkable. LIVER: Increased hepatic parenchymal heterogeneity and echogenicity which could be associated with hepatocellular disease/hepatic steatosis and substantially limits visualization. GALLBLADDER: Possible 3-4 mm gallbladder fundal polyp difficult to characterize due to limited visualization. Gallbladder wall thickness of 0.3 cm, borderline. COMMON BILE DUCT: Normal in caliber measuring 0.5 cm in diameter. RIGHT KIDNEY: No hydronephrosis. No renal calculi. Limited visualization. The kidney measures 12.0 cm in maximum dimension. FREE FLUID: None. US/US abdomen limited IMPRESSION: 1. Possible 3-4 mm gallbladder fundal polyp difficult to characterize due to limited visualization. Recommend follow-up ultrasound in 6 months with good preparation, nothing by mouth. 2. Increased hepatic parenchymal heterogeneity and echogenicity which could be associated with hepatocellular disease/hepatic steatosis and substantially limits visualization. Dictated By: Rachana Cevallos MD Signed By: <Electronically signed by Rachana Cevallos MD in OV> 02/19/23 1115 DD/ 1013 TD/TT: Plate Colorer: [facility] [address] [place] [address] [place] [address] Ultrasound Report Signed Patient: Angelica Cisneros Sr MR#: [id number] : 1955 Acct:[id number] Age/Sex: 67 / M ADM Date: 02/13/23 Loc: [facility] [place]: Gilbert Mccloud MD Ordering Physician: Gilbert Mccloud Date of Service: 02/13/23 Procedure(s): US abd omen limited Accession Number(s): [id number] cc: Shoaib Benedict DO; Gilbert Mccloud EXAMINATION: US ABDOMEN LIMITED CLINICAL INFORMATION: Upper abdominal pain. COMPARISON: CT abdomen and pelvi s with contrast 09/17/2022. Ultrasound abdomen complete 05/30/2022. X-ray abdomen 02/08/2015. TECHNIQUE: Real-time imaging of the right upper quadrant abdominal viscera. Limited visualizatio n due to bowel gas. FINDINGS: PANCREAS: Limited vi sualization of pancreatic tail and head. Imaged portion of pancreati c body is unremarkable. LIVER: Increased hep atic parenchymal heterogeneity and echogenicity which could be assoc iated with hepatocellular disease/hepatic steatosis and substantially li mits visualization. GALLBLADDER: Possibl e 3-4 mm gallbladder fundal polyp difficult to characterize due to limited visualization. Gallbladder wall thickness of 0.3 cm, borderline. COMMON BILE DUCT: No rmal in caliber measuring 0.5 cm in diameter. RIGHT KIDNEY: No hydronephrosis. No renal calculi. Limited visualization. The trice shaffer measures 12.0 cm in maximum dimension. FREE FLUID: None. U S/US abdomen limited IMPRESSION: 1. Possible 3-4 mm g allbladder fundal polyp difficult to characterize due to limited visua lization. Recommend follow-up ultrasound in 6 months with good pre paration, nothing by mouth. 2. Increased hepatic parenchymal heterogeneity and echogenicity which could be associated with hepatocellular disease/hepatic steatosis and substantially limits visualization. Dictated By: Rachana Cevallos MD Signed By: <Jessica mosley signed by Rachana Cevallos MD in OV> 02/19/23 1115 DD/ 1013 TD/TT: Plate Colorer: REASON FOR VISIT Patient presents today for abd pain Medications Medication SIG (Take, Route, Frequency, Duration) Notes Start Date End Date Status Dicyclomine HCl 10 MG 1-2 capsules Orally Four times a day prn abdominal cramps/discomfort for 30 day(s) 08/10/2018 Not-Taking Pantoprazole Sodium 40 MG 1 tablet Orally Once a day Not-Taking [place] 3 1200 MG 1 capsule Orally Once a day for 30 day(s) Not-Taking MiraLax - 1 packet mixed with 8 ounces of fluid Orally Once a day for 30 day(s) Not-Taking Dicyclomine HCl 10 MG 1 or 2 capsules Orally Every 6 hours as needed for abdominal discomfort/cramps for 30 day(s) 09/16/2022 Active amLODIPine Besylate 5 MG Oral for 90 Active Losartan Potassium 100 MG Oral for 90 Active Calcium Carbonate 1250 (500 Ca) MG [...] empty stomach Orally Twice a day Active Gabapentin 400 MG 3 capsule Orally Three times a day Active Magnesium Oxide 400 MG 1 tablet as neede d Orally Once a day for 30 day(s) Active traZODone HCl 100 MG 1 tablet at bedtime Orally at bedtime Active Atorvastatin Calcium 40 MG 1 tablet Orally Once a day Active Aspir-81 81 MG 1 tablet Orally Once a day Active Melatonin Active Brexpiprazole 1 MG 1 tablet Orally Once a day for 30 day(s) Active buPROPion HCl ER (XL) 300 MG 1 tablet in the morning Orally Once a day for 30 day(s) Active Omeprazole 40 MG 1 capsule Orally BID Active Metoprolol Tartrate 25 MG 1 tablet Orally Twice a day Active Multivitamin Active E400 Active Glucose Not-Taking Social History Alcohol Screen Question Answer Notes Did you have a drink containing alcohol in the p ast year? No Points 0 Interpretation Negative Section Notes: Nonsmoker > 10 yrs; no alcohol in 10 yrs-previous heavy drinker Vapes and marijuana for back pain several times per day medical marijuana card [facility] Vital Signs Temperature 97.5 degrees Fahrenheit 02/13/20 23 Blood pressure systolic 00 mm Hg 02/13/20 23 Blood pressure diastolic 00 mm Hg 023 Height 71 in 02/12/2023 Weight 249 lbs 02/12/2023 BMI 34.72 kg/m2 02/12/2023 Encounters Encounter Location Date Provider Diagnosis [facility] [address] [place] [address] 02/12/2023 Gilbert Mccloud Upper abdominal pain R10.10 Assessments Encounter Date Diagnosis (ICD Code) Assessment Notes Treatment Notes Treatment Clinical Notes Section Notes 02/12/2023 Upper abdominal pain (ICD-10 - R10.10) Eat slowly, continue the Sucralfate and Omeprazole Overall, Broderick appears well from a clinical standpoint. He is not having any worrisome GI complaints at the present time. Given his negative studies I advised him that his occasional dysphagia is most likely related to eating too quickly. This would also account for his belching after eating. I did advise him to try to eat slower and more carefully in general. I did advise him to continue his current regimen of the omeprazole and sucralfate given the previous history of the anastomotic ulcers and GI bleeding. He does not seem to be having any recurrent symptoms in that regard and the upper endoscopy in February of 2021 was also unremarkable in that regard. In regard to his colonoscopy findings last year with removal of a single tubular adenoma, I did review with him that he should undergo a repeat colonoscopy in 2026 for further screening. In regard to the episode over the summer with the fever, abdominal pain, and elevated LFTs, as well as the subsequent slightly elevated pancreatic enzymes, I did recommend a followup right upper quadrant ultrasound to rule out gallstones that may not have been visualized on the CT scan. If things otherwise remain well I advised him to see me in 2026 for a followup colonoscopy. I advised him to call sooner if he has any problems or questions I can be of assistance with. Broderick and his were comfortable with this plan. Thank you again for allowing me to participate in Broderick's care. I shall continue to keep you advised of his progress. Plan Of Treatment Treatment Notes Assessment Notes Upper abdominal pain Eat slowly, continu e the Sucralfate and Omeprazole Next Appt Details Follow Up: prn, Reason: Progress Notes * TAJ CISNEROS SrDOB:1955 (67 yo M)Acc No.[id number]:02/12/2023 Progress Notes Patient:?TAJ CISNEROS Provider:?Gilbert Mccloud MD :1955???Age:67 Y???Sex:Male Clifford e:02/12/2023 Address:[address] [place], [place] [id number] Pcp:AMY BENEDICT D.O Subjective: * Chief Complaints: * ???Patient presents today fo r abd pain * HPI: ???incontinence:? I saw Broderick in followup today in regard to his history of abdominal pain, intermittent dysphagia and chest pain, personal history of tubular adenomas of the colon, and previously elevated LFTs and pancreatic enzymes. He was accompanied by his . ?I last saw Brodercik in September of 2021, at which time he underwent a colonoscopy with removal of a single tubular adenoma. His upper endoscopy in February of 2021 was unremarkable. He has remained on his omeprazole twice a day and sucralfate 3 times a day with good relief of any particular problems such as significant heartburn, significant abdominal pain, or early satiety. His previous issue with chest pain has resolved. ?He does have occasional symptoms of dysphagia but a barium swallow just this past October was unremarkable, as was his upper endoscopy in 2021. He describes that he does eat quickly and tends to have some belching afterwards. ?He was in the ER this past September with some fever and abdominal pain with associated elevated LFTs and a CT scan that was unremarkable at that time including the gallbladder, pancreas, and liver. I did repeat his LFTs in October and those were normal, although the pancreatic enzymes were slightly elevated with an amylase of 148 and lipase of 101. He has not had any recurrent abdominal pain. He does not use any alcohol. ?He reports that his bowel movements are fairly regular and without any sign of bleeding. He denies any signs of jaundice, weight loss, nor any recurrent fevers. * ROS:?General/Constitutional:?Change in appetite?denies.?Chills?denies.?Fatigue?denies.?Ophthalmologic:?Comments?all negative.?ENT:?Comments?all negative.?Respiratory:?hemoptysis?denies.?Cough?denies.?Cardiovascular:?Chest pain?denies.?Orthopnea?denies.?Gastrointestinal:?Comments?See HPI for details.?Genitourinary:?Hematuria?denies.?Dysuria?denies.?Musculoskeletal:?Comments?Back pain.?Skin:?Itching?denies.?Rash?denies.?Neurologic:?Headache?denies.?Seizures?denies.?Psychiatric:?Comments?all negative.? * Medical History:? * Surgical History:?Hernia eric coty Back surgery x 5--has neurostimulator in place Knee surgery Bowel obstruction 08/2013--treated with laprascopic surgery at [facility] Thumb repair-left Laprascopic Gastric bypass at [facility] 2012--lost 130# Panniculectomy 2018 * Hospitalization/Major Diagno stic Procedure:?No Hospitalization History. * Family History:?Father: dece ased, diagnosed with Diabetes.?Mother: , diagnosed with Diabetes, Heart disease, HTN (hypertension).? No colorectal cancer. * Social History:?Tobacco Use:?Tobacco Use/Smoking?Are you a: former smoker , How long has it been since you last smoked?: > 10 years.?Drugs/Alcohol:?Alcohol Screen?Did you have a drink containing alcohol in the past year??No,?Points?0,?Interpretation?Negative.?Miscellaneous:?Marital status: . Occupation: DISABLED. ???Nonsmoker >10 yrs; no alcohol in 10 yrs-previous heavy drinker Vapes and marijuana for back pain several times per day medical marijuana card [place]. * Medications:?TakingMultivita min E400 Melatonin Brexpiprazole 1 MG Tablet 1 tablet Orally Once a daybuPROPion HCl ER (XL) 300 MG Tablet Extended Release 24 Hour 1 tablet in the morning Orally Once a dayOmeprazole 40 MG Capsule Delayed Release 1 capsule Orally BIDMetoprolol Tartrate 25 MG Tablet 1 tablet Orally Twice a dayAtorvastatin Calcium 40 MG Tablet 1 tablet Orally Once a dayAspir-81 81 MG Tablet Delayed Release 1 tablet Orally Once a dayGabapentin 400 MG Capsule 3 capsule Orally Three times a dayMagnesium Oxide 400 MG Tablet 1 tablet as needed Orally Once a daytraZODone HCl 100 MG Tablet 1 tablet at bedtime Orally at bedtimeCalcium Carbonate 1250 (500 Ca) MG Tablet Chewable 1 tablet Orally Once a dayMultivitamin Adults - Tablet as directed Orally Tylenol 325 MG Tablet 1 tablet as needed Orally as neededMethocarbamol 750 MG Tablet 1 tablet Orally every 12 hours as needed, Notes: PRN muscle spasmsSucralfate 1 GM Tablet 1 tablet on an empty stomach Orally Twice a dayDicyclomine HCl 10 MG Capsule 1 or 2 capsules Orally Every 6 hours as needed for abdominal discomfort/crampsamLODIPine Besylate 5 MG Tablet Oral Losartan Potassium 100 MG Tablet Oral Taking Multivitamin Taking E400 Taking Melatonin Taking Brexpiprazole 1 MG Tablet 1 tablet Orally Once a dayTaking buPROPion HCl ER (XL) 300 MG Tablet Extended Release 24 Hour 1 tablet in the morning Orally Once a dayTaking Omeprazole 40 MG Capsule Delayed Release 1 capsule Orally BIDTaking Metoprolol Tartrate 25 MG Tablet 1 tablet Orally Twice a dayTaking Atorvastatin Calcium 40 MG Tablet 1 tablet Orally Once a dayTaking Aspir-81 81 MG Tablet Delayed Release 1 tablet Orally Once a dayTaking Gabapentin 400 MG Capsule 3 capsule Orally Three times a dayTaking Magnesium Oxide 400 MG Tablet 1 tablet as needed Orally Once a dayTaking traZODone HCl 100 MG Tablet 1 tablet at bedtime Orally at bedtimeTaking Calcium Carbonate 1250 (500 Ca) MG Tablet Chewable 1 tablet Orally Once a dayTaking Multivitamin Adults - Tablet as directed Orally Taking Tylenol 325 MG Tablet 1 tablet as needed Orally as neededTaking Methocarbamol 750 MG Tablet 1 tablet Orally every 12 hours as needed, Notes: PRN muscle spasmsTaking Sucralfate 1 GM Tablet 1 tablet on an empty stomach Orally Twice a dayTaking Dicyclomine HCl 10 MG Capsule 1 or 2 capsules Orally Every 6 hours as needed for abdominal discomfort/crampsTaking amLODIPine Besylate 5 MG Tablet Oral Taking Losartan Potassium 100 MG Tablet Oral Not-Taking/PRNGlucose [place]acy[place] 3 1200 MG Capsule 1 capsule Orally Once a dayMiraLax - Packet 1 packet mixed with 8 ounces of fluid Orally Once a dayDicyclomine HCl 10 MG Capsule 1-2 capsules Orally Four times a day prn abdominal cramps/discomfortPantoprazole Sodium 40 MG Tablet Delayed Release 1 tablet Orally Once a dayNot-Taking/PRN Glucose Not-Taking/PRN [place]acy[place] 3 1200 MG Capsule 1 capsule Orally Once a dayNot-Taking/PRN MiraLax - Packet 1 packet mixed with 8 ounces of fluid Orally Once a dayNot-Taking/PRN Dicyclomine HCl 10 MG Capsule 1-2 capsules Orally Four times a day prn abdominal cramps/discomfortNot-Taking/PRN Pantoprazole Sodium 40 MG Tablet Delayed Release 1 tablet Orally Once a dayDiscontinuedFLUoxetine HCl 20 MG Capsule 1 capsule Orally Once a dayClopidogrel Bisulfate 75 MG Tablet 1 tablet Orally Once a dayIron (Ferrous Gluconate) 256 (28 Fe) MG Tablet 1 tablet Orally QODMedication List reviewed and reconciled with the patientDiscontinued FLUoxetine HCl 20 MG Capsule 1 capsule Orally Once a dayDiscontinued Clopidogrel Bisulfate 75 MG Tablet 1 tablet Orally Once a dayDiscontinued Iron (Ferrous Gluconate) 256 (28 Fe) MG Tablet 1 tablet Orally QODMedication List reviewed and reconciled with the patient * Allergies:?Metformin HCl: bryant rodriguez[Allergies Verified] Objective: * Vitals:?Wt: 249 lbs, Ht: 71 in, BMI:34.72 Index, BP: 00/00 mm Hg, Temp: 97.5. * Examination: ???General Examination: ?GENERAL APPEARANCE:?pleasant, well nourished, well developed, in no acute distress.?EYES:?sclera non-icteric.?ORAL CAVITY:?mucosa moist.?NECK/THYROID:?no cervical lymphadenopathy, neck supple.?SKIN:?nonjaundiced, no spider angiomata.?HEART:?S1, S2 normal.?LUNGS:?clear to auscultation bilaterally.?ABDOMEN:?normal bowel sounds, no guarding or rigidity, no guarding or rigidity, no masses palpable, soft, nontender, nondistended.?EXTREMITIES:?no edema.?NEUROLOGIC:?alert and oriented.? Assessment: * Assessment: 1.?Upper abdominal pain - R1 0.10 (Primary)? Overall, Broderick appears well fr om a clinical standpoint. He is not having any worrisome GI complaints at the present time. Given his negative studies I advised him that his occasional dysphagia is most likely related to eating too quickly. This would also account for his belching after eating. I did advise him to try to eat slower and more carefully in general. I did advise him to continue his current regimen of the omeprazole and sucralfate given the previous history of the anastomotic ulcers and GI bleeding. He does not seem to be having any recurrent symptoms in that regard and the upper endoscopy in February of 2021 was also unremarkable in that regard. In regard to his colonoscopy findings last year with removal of a single tubular adenoma, I did review with him that he should undergo a repeat colonoscopy in 2026 for further screening. In regard to the episode over the summer with the fever, abdominal pain, and elevated LFTs, as well as the subsequent slightly elevated pancreatic enzymes, I did recommend a followup right upper quadrant ultrasound to rule out gallstones that may not have been visualized on the CT scan. If things otherwise remain well I advised him to see me in 2026 for a followup colonoscopy. I advised him to call sooner if he has any problems or questions I can be of assistance with. Broderick and his were comfortable with this plan. Thank you again for allowing me to participate in Broderick's care. I shall continue to keep you advised of his progress. Plan: * Treatment: * Notes: Eat slowly, continue the Sucralfate and Omeprazole.?? * Procedure Codes:?3017F COLOR ECTAL CA SCREEN DOC [id number] TOBACCO [id number] BP SCR NOT PRFRM REC REASON NOS * Preventive Medicine:? ??Counseling:?Care goal follow-up plan:?Above Normal BMI Follow-up?Giving encouragement to exercise,?BMI management provided?Yes.? * Follow Up:?prn * * Sign off status: Completed true * Provider:?Gilbert Mccloud MD Date:? 023 Generated for Leonard sarabia/Edgard/Philitting on:?04/27/2024 12:10 PM EDT History and Physical Notes * HPI (History of Present Illness) Category Sub-Category Detail Notes Category Not es incontinence I saw Broderick in followup today in regard to his history of abdominal pain, intermittent dysphagia and chest pain, personal history of tubular adenomas of the colon, and previously elevated LFTs and pancreatic enzymes. He was accompanied by his . I last saw Broderick in September of 2021, at which time he underwent a colonoscopy with removal of a single tubular adenoma. His upper endoscopy in February of 2021 was unremarkable. He has remained on his omeprazole twice a day and sucralfate 3 times a day with good relief of any particular problems such as significant heartburn, significant abdominal pain, or early satiety. His previous issue with chest pain has resolved. He does have occasional symptoms of dysphagia but a barium swallow just this past October was unremarkable, as was his upper endoscopy in 2021. He describes that he does eat quickly and tends to have some belching afterwards. He was in the ER this past September with some fever and abdominal pain with associated elevated LFTs and a CT scan that was unremarkable at that time including the gallbladder, pancreas, and liver. I did repeat his LFTs in October and those were normal, although the pancreatic enzymes were slightly elevated with an amylase of 148 and lipase of 101. He has not had any recurrent abdominal pain. He does not use any alcohol. He reports that his bowel movements are fairly regular and without any sign of bleeding. He denies any signs of jaundice, weight loss, nor any recurrent fevers. Examination Category Sub-Category Detail Notes Category Not es General Examination GENERAL APPEARANCE: pleasant , well nourished, well developed, in no acute distress HEAD: EYES: sclera non-icteric EARS: NOSE: THROAT: NECK/THYROID: no cervical lymphade nopathy, neck supple HEART: S1, S2 normal CHEST: LUNGS: clear to auscultatio n bilaterally ABDOMEN: normal bowel sounds, no guarding or rigidity, no guarding or rigidity, no masses palpable, soft, nontender, nondistended NEUROLOGIC: alert and oriented SKIN: nonjaundiced, no spi yan angiomata EXTREMITIES: no edema PERIPHERAL PULSES: BACK: BREASTS: MUSCULOSKELETAL: MALE GENITOURINARY: LYMPH NODES: RECTAL EXAM: FEMALE GENITOURINARY: ORAL CAVITY: mucosa moist
[2024-04-27 14:06] LABS: Prostate Specific Antigen 0.26 ng/mL (<0.05-4.0)
== END 2024-04-27 10:45 | disposition home or self-care (01) ==
LOC: HO.HMGCLDS 10:44
PROVIDERS: PCP Internal Medicine; Visit Provider Urology
DX: Z12.5 Encounter for screening for malignant neoplasm of prostate (principal)
CPT/HCPCS: 36415; 84153

== ENCOUNTER 2024-05-05 07:37 | Outpatient (AMB) | payer OTHER, SELFPAY ==
--- NOTE | 2024-05-04 10:46 | A.OFFVIS_ITS ---
Intake Visit Reasons: 9m/PSA Intake Note: Patient presents to office today for a 9 month follow-up/PSA Meds- Tamsulosin, trospium Allergies to Antibiotic- No Known Allergies Blood Thinner- Aspirin, Clopidogrel Experimental Psychologist Required: No Accompanied by: Allergies animal dander Allergy (Intermediate, Verified 05/05/24 07:56) itchy eyes / runny nose metformin [METFORMIN] Allergy (Unknown, Verified 05/05/24 07:56) KIDNEY FAILURE, anaphylaxis Medication List - Last Reconciled 05/05/24 by Cristy Hall MD amlodipine 5 mg PO DAILY armodafinil 100 mg PO QAM aspirin 81 mg PO DAILY atorvastatin 80 mg PO BEDTIME brexpiprazole (Rexulti) 1 mg PO DAILY calcium 600 mg PO DAILY@1200 clonidine HCl 0.1 mg PO BEDTIME clopidogrel 75 mg PO DAILY gabapentin 1,200 mg PO TID@0900,1500,2000 [glucose tablets PO] losartan 100 mg PO DAILY magnesium oxide 400 mg PO DAILY@1200 [medical marihuana PO] melatonin 5 mg PO BEDTIME PRN methocarbamol 750 mg PO BID PRN metoprolol tartrate 1 tab PO BID multivitamin 1 tab PO DAILY nitroglycerin 0.4 mg sublingual Q5M omeprazole 40 mg PO BID sucralfate 1 g PO TID tamsulosin (Flomax) 0.4 mg PO BEDTIME trazodone 200 mg PO BEDTIME trospium 20 mg PO BID 30 days HPI Comments Details: 05/05/24--Broderick is being followed for lower urinary tract symptoms of urgency and slowing of the stream. He was last seen in the office 08/08/2023, Pt states Myrbetriq was too expensive. He is prescribed tamsulosin. Comorbidity- diabetes, history of stroke and diagnosis of white matter disease. He in the office yesterday urine bladder scan PVR was done he was not seen MD in returns today evaluation. 68-year-old male presenting with lower urinary tract symptoms. His current regimen includes Trospium 20 mg twice daily, which provides reasonable control over urgency symptoms. Adaptations in lifestyle, such as preemptive restroom usage, help manage his urinary condition without significant deterioration over time. The patient has PMH hypertension and hyperlipidemia. Results - Labs: 05/04/24--Urine sample negative for leukocytes, negative for blood, 2+ protein - Tests and Diagnostics: 05/04/24--Bladder scan showing post void residual volume of 38 mL -PSA - 04/27/24--0.26 ng/mL 08/08/2023--Broderick is being followed for lower urinary tract symptoms of urgency is slowing of the stream. He was last seen in the office 06/06/2023, Myrbetriq 25 mg was prescribed, he is also prescribed tamsulosin. Comorbidity-diabetes, history of stroke and diagnosis of white matter disease. He states since being on the Myrbetriq he is not having the leakage episodes, he does continue to have frequent urges however this is manageable. The patient states that he is seen Nephrology in regards to the proteinuria. Urinalysis leukocytes negative blood negative protein 3+, bladder scan PVR 147 mL. Plan will be to continue both Myrbetriq 25 mg and tamsulosin 0.4 mg, PSA screening follow-up in 9 months. -06/06/2023-Broderick is here with his , he was initially evaluated on 04/15/2023 with complaints of urinary urgency and slowing of urinary stream. The patient has history of stroke and his states they were told he has white matter disease. He was empirically started on tamsulosin 0.4 mg daily. He was sent for renal ultrasound and PSA screening. I have reviewed results with him. The patient states that he does not notice a difference with the tamsulosin. He is bothered with the fact that when he gets these urge which can be every 1-2 hours he has not able to hold the urine in and has a large wetting accidents. Bladder scan PVR is within normal limits. Urinalysis positive protein. Patient states he follows with Nephrology. 05/27/2023--renal ultrasound-kidneys within normal limits, left kidney 2.2 cm simple cyst. Estimated prostate volume 14.1 mL. Plan discussed continue tamsulosin. Will trial Myrbetriq 25 mg daily. 04/15/23--Jacob is a 67-year-old male with history of type 2 diabetes, hypertension, hyperlipidemia, anxiety / depression, PTSD, obesity status post gastric bypass 2012, CKD-follows with Nephrology, MACKENZIE on CPAP,? chronic low back pain s/p SCS, history peptic ulcer disease with h/o bleeding ulcers,and coronary artery disease, history of stroke 2018 (states he had 3 strokes that year March 20, March 22, & April 07); He presents for evaluation for BPH and weak urinary stream and he describes times where he gets the urge and has leaked urine before getting to the bathroom. He declines prostate exam states he had 1 done at the [facility]. Urinalysis negative for bladder leukocytes, 2+ protein, bladder scan PVR 26 mL. I have discussed that his symptoms may arise from both bladder spasms as well as enlarged prostate. I will initially trial an alpha-roldan Flomax 0.4 mg daily. Ultrasound retroperitoneum, kidneys bladder, PSA screening. 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 at home PTSD (post-traumatic stress disorder) Anxiety and depression White matter disease MACKENZIE on CPAP Sleep apnea Back pain Chronic renal insufficiency Myocardial infarction Neurostimulator device in situ Bleeding ulcer High cholesterol HTN (hypertension) Hypoglycemia Stroke Surgical History Status post panniculectomy History of cardiac catheterization Hx of endoscopy Hx of colonoscopy History of esophagogastroduodenoscopy (EGD) Hx of abdominal surgery Hx of gastric bypass Hx of hand surgery Hx of knee surgery History of colon surgery History of back surgery Hx of hernia repair Hx of heart artery stent Social History Are you a primary career center director to a significant other at home: No Do you presently have visiting nurse or other home services: No Patient Tobacco Use Status: Former Tobacco user Tobacco use type: Cigarette Second Hand Smoke Exposure: No Advance Directives Date on File: 03/14/21 service: No Review of Systems Const All systems reviewed & are unremarkable except as noted in HPI and below Reports no additional complaints Eyes Reports no additional complaints ENT Reports no additional complaints Card Reports no additional complaints Resp Reports no additional complaints GI Reports no additional complaints Reports as per HPI Musc Reports no additional complaints Skin/Breast Reports system reviewed and no additional complaints, except as documented Neuro Reports no additional complaints Psych Reports no additional complaints Endo Reports no additional complaints Terrell/Lymph Reports no additional complaints Aller/Immun Reports no additional complaints Assessment & Plan Assessment & Plan (1) Screening PSA (prostate specific antigen): Code(s): Z12.5 - Encounter for screening for malignant neoplasm of prostate Category: Medical (2) BPH loc w urin obs/LUTS: Code(s): N40.1 - Benign prostatic hyperplasia with lower urinary tract symptoms Category: Medical (3) History of stroke: Code(s): Z86.73 - Personal history of transient ischemic attack (TIA), and cerebral infarction without residual deficits Category: Medical (4) Spastic neurogenic bladder: Code(s): N31.8 - Other neuromuscular dysfunction of bladder Category: Medical Plan Patient Instructions - Continue taking Trospium 20 mg twice daily as prescribed. - Monitor urinary symptoms and report any significant changes. - Follow your current diet to manage diabetes. - Perform lab tests as scheduled two weeks before your next visit. - Contact us immediately if you notice worsening symptoms or have concerns. - Adapt your activities as necessary, like voiding before long walks. - Schedule a follow-up visit in one year. Orders: Orders Prostate Specific Antigen 04/27/24 Z12.5 - Encounter for screening for malignant neoplasm of prostate PSA,Total (Free>4and<10) 11 Months N31.8 - Other neuromuscular dysfunction of bladder, N40.1 - Benign prostatic hyperplasia with lower urinary tract symptoms, Z12.5 - Encounter for screening for malignant neoplasm of prostate, Z86.73 - Personal history of transient ischemic attack (TIA), and cerebral infarction without residual deficits Patient Instructions: The patient had an opportunity to ask questions regarding treatment plan. The patient expressed understanding and agreement with the above treatment plan. The patient is aware they should contact our office by phone for worsening of their current condition or the appearance of new symptoms. Compliance is encouraged with any medications and followup testing that is ordered. It is a privilege to be allowed the opportunity to participate in the urologic care of your patient. If you have any questions or concerns regarding treatment for the above conditions please do not hesitate to contact me. The office telephone contact is [phone]. This note is constructed in part using voice recognition software. While every effort has been made to ensure accuracy professor of poultry science errors may have been included. Yours sincerely, Cristy Hall MD Scribe Plan - Not visible on output: Patient was informed and verbally consented to the use of an ambient scribe for clinic note documentation during this visit. Coding Level of Care Code Est Pt Level 4 (68217) Diagnoses Screening PSA (prostate specific antigen) Z12.5 BPH loc w urin obs/LUTS N40.1 History of stroke Z86.73 Spastic neurogenic bladder N31.8
--- OUTSIDE RECORDS SUMMARY | 2024-05-04 11:00 | XMS_ITS | Clinical Summary ---
Author Organization [facility], Address [address] [place] [address] Phone Care Team Providers Care Fireproof Door Maker Name Role Phone Luis F Lozada DO [...] specified 08/06/2023 Atherosclerotic heart diseas e of havasupai coronary artery with angina pectoris 02/06/2021 Gastroesophageal [...] Visit [facility] [place], [address] [place] [address] Camilo Terrell MD Proteinuria, not otherwise specified [...] Visit [facility] [place], [address] [place] [address] Camilo Terrell MD [address] [place] [phone] Health Maintenance Due Date Last Done Comments [...] AM EDT) Hemoglobin A1C 5.9(H) (4.0-5.6) % [facility] Comment: MONITORING: In known diabetic patients, hemoglobin A1c targets should be discussed with health care provider. DIAGNOSTIC USE: ??The [place] Diabetes Association (ADA) and the World Health [...] Supplement 1 Testing performed or reported by [facility] Reference [employer], a Service of [facility], [address] [place] [id number] Larry Syed MD, Kosher Dietary Service Manager SIRISHA# [id number] Blood (Blood, Venous) 07/25/2022 10:20 AM EDT 07/25/2022 10:48 AM EDT Calvin LOUIE LAB BLOOD ORDERABLES Final Re sult [facility] Organization Address City/State/ZIP Co de Phone Number [facility] from Last 3 Months or Most Recently Relevant to Health Maintenance Insurance MEDICARE [facility] Care Teams Fireproof Door Maker Relationship Specialty Start Date End Date Luis F Lozada DO [address] [place] [address] PCP - General Internal Medicine 02/03/21
--- OUTSIDE RECORDS SUMMARY | 2024-05-04 11:00 | XMS_ITS | Encounter Summary ---
Author Organization [facility] [place], Address [address] [place] [address] Phone Care Team Providers Care Mill Platform Supervisor Name Role Phone Luis F Lozada DO Primary Care Provide r Encounter Details Date Type Department Care Team (Late st Contact Info) Description 08/01/2021 Documentation Only [facility] [address] [place] [address] Camilo Terrell MD [address] [place] [address] [place] [address] Social History Tobacco Use Types [...] Visit [facility] [address] [place] [address] Camilo Terrell MD [address] [place] [address] documented as of this encounter Visit Diagnoses Not on filedocumented in this encounter Care Teams Mill Platform Supervisor Relationship Specialty Start Date End Date Luis F Lozada DO [address] [facility] 1 [place] [address] PCP - General Internal Medicine 02/03/21 documented as of this encounter
--- OUTSIDE RECORDS SUMMARY | 2024-05-04 11:01 | XMS_ITS ---
Author Organization [facility] Address [address] [place] [address] Care Team Providers Care Swimming Pool Service Technician Name Role Phone AMY BENEDICT D.O Primary Care Provider Kristine vailable Gilbert Mccloud Unavailable [phone] Allergies Allergen (clinical drug ingredient) Drug/Non Drug Allergy documented on EMR Reaction Allergy Type Onset Date Status metformin Metformin HCl kidney failure Drug Allergy Active Results Component Value Reference Range Notes US abdomen limited Reviewed date:04/01/2023 07:16:02 AM Interpretation: Performing Lab: Notes/Report: [facility] [address] [address] Ultrasound Report Signed Patient: Taj Cisneros Sr MR#: [id number] : 1955 Acct:[id number] Age/Sex: 67 / M ADM Date: 02/13/23 [facility]: [facility] Att[facility] Dr: Gilbert Mccloud MD Ordering Physician: Gilbert Mccloud Date of Service: 02/13/23 Procedure(s): US abdomen limited Accession Number(s): [id number] cc: Amy Benedict DO; Gilbert Mccloud EXAMINATION: [...] in OV> 02/19/23 1115 DD/ 1013 TD/TT: Rehab Care Assistant: [facility] [address] [place] [address] [place] [address] Ultrasound Report Signed Patient: Angelica Cisneros Sr MR#: [id number] : 1955 Acct:[id number] Age/Sex: 67 / M ADM Date: 02/13/23 Loc: [facility] Attending Dr: Gilbert Mccloud MD Ordering Physician: Gilbert Mccloud Date of Service: 02/13/23 Procedure(s): US abd omen limited Accession Number(s): [id number] cc: Shoaib Benedict DO; Gilbert Mccloud EXAMINATION: [...] in OV> 02/19/23 1115 DD/ 1013 TD/TT: Rehab Care Assistant: REASON FOR VISIT Patient presents today for abd pain Medications Medication SIG (Take, Route, Frequency, Duration) Notes Start Date End Date Status Dicyclomine HCl 10 MG 1-2 capsules Orally Four times a day prn abdominal cramps/discomfort for 30 day(s) 08/10/2018 Not-Taking Pantoprazole Sodium 40 MG 1 tablet Orally Once a day Not-Taking [place] 3 1200 MG 1 capsule Orally Once [...] 02/12/2023 Encounters Encounter Location Date Provider Diagnosis [facility] [address] [place] [address] 02/12/2023 Gilbert Mccloud Upper abdominal pain R10.10 [...] * TAJ CISNEROS SrDOB:1955 (67 yo M)Acc No.[id number]:02/12/2023 Progress Notes Patient:?TAJ CISNEROS Provider:?Gilbert Mccloud MD :1955???Age:67 Y???Sex:Male Clifford e:02/12/2023 Address:[address] [place], [place] [id number] Pcp:AMY BENEDICT D.O Subjective: * Chief Complaints: * ???Patient presents today fo r abd pain * HPI: ???incontinence:? I saw Broderick in followup today in regard to his history of abdominal pain, intermittent dysphagia and chest pain, personal history of tubular adenomas of the colon, and previously elevated LFTs and pancreatic enzymes. He was accompanied by his . ?I last saw Broderick in September of 2021, [...] Bowel obstruction 08/2013--treated with laprascopic surgery at [facility] Thumb repair-left Laprascopic Gastric bypass at [facility] 2012--lost 130# Panniculectomy 2018 * Hospitalization/Major Diagno [...] Losartan Potassium 100 MG Tablet Oral Not-Taking/PRNGlucose [place] 3 1200 MG Capsule 1 capsule Orally Once a dayMiraLax - Packet 1 packet mixed with 8 ounces of fluid Orally Once a dayDicyclomine HCl 10 MG Capsule 1-2 capsules Orally Four times a day prn abdominal cramps/discomfortPantoprazole Sodium 40 MG Tablet Delayed Release 1 tablet Orally Once a dayNot-Taking/PRN Glucose Not-Taking/PRN [place] 3 1200 MG Capsule 1 capsule Orally [...] Procedure Codes:?3017F COLOR ECTAL CA SCREEN DOC [id number] TOBACCO NON-[id number] BP SCR NOT PRFRM REC REASON NOS * Preventive Medicine:? ??Counseling:?Care goal follow-up plan:?Above Normal BMI Follow-up?Giving encouragement to exercise,?BMI management provided?Yes.? * Follow Up:?prn * * Sign off status: Completed true * Provider:?Gilbert Mccloud MD Date:? 023 Generated for Leonard sarabia/Edgard/Philitting on:?05/04/2024 11:00 AM EDT History and Physical Notes * HPI [...]
--- OUTSIDE RECORDS SUMMARY | 2024-05-04 11:01 | XMS_ITS | Encounter Summary ---
Author Organization [facility] [place], Address [address] [place] [address] Phone Care Team Providers Care Metalizer Field Operation Name Role Phone Luis F Lozada DO Primary Care Provide r Encounter Details Date Type Department Care Team (Late st Contact Info) Description 08/02/2021 Documentation Only [facility] [address] [place] [address] Camilo Terrell MD [address] [place] [address] [place] [address] Social History Tobacco Use Types [...] Visit [facility] [address] [place] [address] Camilo Terrell MD [address] [place] [address] documented as of this encounter Visit Diagnoses Not on filedocumented in this encounter Care Teams Metalizer Field Operation Relationship Specialty Start Date End Date Luis F Lozada DO [address] [facility] 1 [place] [address] PCP - General Internal Medicine 02/03/21 documented as of this encounter
--- OUTSIDE RECORDS SUMMARY | 2024-05-04 11:01 | XMS_ITS | Patient Health Record ---
Author Organization [facility] Address [address] [place] [address] Care Team Providers Care Ripening Room Hand Name Role Phone AMY GONZALEZ D.O Primary Care Provider Kristine taylorkathGilbert Haro [phone] Allergies Allergen (clinical drug ingredient) Drug/Non Drug [...] Potassium 100 MG Oral for 90 Active [place] 3 1200 MG 1 capsule Orally Once [...] Problem Status W/U Status Risk Notes Problem 117739105 Encounter for screening for malignant neoplasm of colon (Z12.11) Active confirmed Problem History of adenomatous polyp of colon (584063399) History of adenomatous polyp of colon (Z86.010) Active confirmed Problem 79080263 Abdominal pain, epigastric (R10.13) Active confirmed Problem 607764224 Elevated liver function tests (R79.89) Active confirmed Problem 660412248 Diverticulosis (K57.90) Active confirmed Problem 57214881 Oropharyngeal dysphagia (R13.12) Active confirmed Problem 375925738 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) Active confirmed Problem 21292679 Pharyngoesophage al dysphagia (R13.14) Active confirmed Problem Esophageal reflux finding (999290611) Gastroesophageal reflux (K21.9) Active confirmed Problem 822554127 Abdominal pain, generalized (R10.84) Active confirmed Problem 72759805 Upper abdominal pain (R10.10) Active confirmed Problem Diverticulosis of colon (208208419) Diverticulosis of colon (K57.30) Active confirmed Problem 68424389 Chest pain, unspecified type (R07.9) Active confirmed Problem History of gastrointestinal tract bypass (303344119) Hx of Billroth II operation (Z98.0) Active [...] OF [place] [address] [place] [address] [phone] [id number] TAJ DE LA ROSA Self - patient is the insured [employer] P[employer] [address] [place] [address] [id number] TAJ DE LA ROSA Self - patient [...] 10/2016--had an EGD at that time at [facility]; describes a neg. UGI at [facility] in 09/2017 for abdominal pain CVA's [...] work in regard to any sign of MD--Dr. Lobato asked me to perform an upper [...] obstruction 08/2013--treated with l aprascopic surgery at [facility] Thumb repair-left Laprascopic Gastric bypass at [facility] 2012- -lost 130# Panniculectomy 2018
--- OUTSIDE RECORDS SUMMARY | 2024-05-05 07:41 | XMS_ITS ---
Author Name [facility] [place] [facility] [place] Address [address] [place] [address] Care Team Providers Care Rn Private Duty Name Role Phone JOSE MANUEL PITT Primary Care Provider Unavailabl e Insurance Providers: All historical and current Section Date Range: From patient's date of to the date document was created. This section includes the names of all active insurance providers for the patient. Insurance Provider Type of Coverage Plan Name Start of Policy Coverage End of Policy Coverage Group Number Member ID Insurance Provider's Telephone Number Policy Burgess's Name Patient's Relationship to Policy Burgess [facility] PLAN MEDICARE SUPPLEMEN BETY MEDIC ARE SUPPL EMENT A Feb 18, 2022 SUPP1 [id number] GINA DE LA ROSA PATIENT [facility] MED PREFER/SEN IOR CARE MEDICARE SUPPLEMEN BETY MEDIC ARE SUPPL EMENT A Feb 18, 2021 SUPP1 [id number] [phone] GINA DE LA ROSA PATIENT Selected Encounter This section includes the information on record at [place] for the Encounter. Date/Time Encounter Type Encounter Description Reason Provider Source Apr 22, 2024 09:00 AM STRESS [facility] ICD-10-CM F43.12 Post-traumatic stress disorder, chronic MARIALUISA SALCEDO Encounter Template Text not used by [place] Assessments - Encounter Diagnoses This section includes the primary and secondary diagnoses documented for the Encounter. Date/Time Primary/Secondary Diagnosis Diagnosis Name Provider Source Apr 22, 2024 10:24 AM PRIMARY Post-traumatic stress disorder, chronic MARIALUISA SALCEDO [facility] [place] [facility] Plan of Treatment: Future Appointments (+ 6 months) and Future Tests (+/- 45 days) The Plan of Treatment section includes future care activities for the patient from all [place] treatmentfacilities. This section includes future appointments and future orders which are active, pending or scheduled. Future Appointments This section includes appointments that were scheduled to occur 6 months from the date of the Encounter, up to a maximum of 20 appointments. The data comes from all [place] treatment facilities. Appointment Date/Time Appointment Type Appointme nt Facility Name Apr 29, 2024 09:00 AM AMBULATORY - PS[facility]CHIATRY [facility] [place] [facility] May 04, 2024 07:00 AM AMBULATORY - PS[facility]AT[facility] [place] [facility] May 04, 2024 10:15 AM AMBULATORY [facility] MEDICINE [facility] [place] [facility] May 06, 2024 09:00 AM AMBULATORY [facility] PS[facility]AT[facility] [place] [facility] May 13, 2024 09:00 AM AMBULATORY [facility] PS[facility]IAT[facility] [place] [facility] May 14, 2024 09:30 AM [facility] May 20, 2024 09:00 AM AMBULATORY - PS[facility]CHIATRY [facility] [place] [facility] May 21, 2024 02:00 PM AMBULATORY [facility] MEDICINE [facility] [place] [facility] May 25, 2024 07:00 AM AMBULATORY - PS[facility]CHIATRY [facility] [place] [facility] May 27, 2024 09:00 AM AMBULATORY - PS[facility]CHIATRY [facility] [place] [facility] Jun 01, 2024 01:00 PM AMBULATORY - PS[facility]CHIATRY [facility] [place] [facility] Jun 03, 2024 09:00 AM AMBULATORY - PS[facility]CHIATRY [facility] [place] [facility] Jun 09, 2024 07:00 AM AMBULATORY - PS[facility]CHIATRY [facility] [place] [facility] Jun 10, 2024 09:00 AM AMBULATORY - PS[facility]CHIATRY [facility] [place] [facility] June 22, 2024 07:00 AM AMBULATORY [facility] PS[facility] [place] [facility] July 06, 2024 07:00 AM [place] [facility] [place] [facility] Jul 20, 2024 09:00 AM [place] [facility] [place] [facility] Aug 03, 2024 08:30 AM [place] [facility] [place] [facility] Active, Pending, and Scheduled Orders This section includes a listing of several types of active, pending, and scheduled orders, including clinic medications orders, diagnostic test orders, procedure orders and consult orders; where the start date of the order is 45 days before the date of the Encounter or 45 days after the date of theEncounter. The data comes from all [place] treatment facilities. Test Date/Time Test Type Test Details Facility Name Apr 27, 2024 12:00 AM Laboratory - Chemi stry Order OCCULT BLOOD FIT X1 SCREEN (MFP ONLY) [facility] Social History: Smoking Status (Most current) and Tobacco Use (All prior to encounter date) This section includes the most current, and the historical, smoking and tobacco- related health factors from the [place] facility where the Encounter took place. Current Smoking Status This section includes the most current smoking, or tobacco-related health factor, from the [place] facility where the Encounter took place. Date/Time Current Smoking Status Comment Facil ity Mar 30, 2024 07:00 AM VA-TOBACCO USE FOR TYRONE CIGARETTES [facility] Tobacco Use History This section includes a history of the smoking, or tobacco-related health factors, that were collected on or before the date of the Encounter. The data comes from the [place] facility where the Encounter took place. Date/Time Smoking Status/Tobacco Use Comment F acility Mar 30, 2024 07:00 AM VA-TOBACCO USE FOR TYRONE OTHER TYPE [place] [facility] [place] [facility] Apr 15, 2023 07:00 AM VA-TOBACCO FORMER USER [place] [facility] [place] [facility] Apr 15, 2023 07:00 AM VA-TOBACCO QUIT 15 YRS OR MORE [place] [facility] [place] [facility] Apr 24, 2022 07:00 AM VA-TOBACCO FORMER USER [place] [facility] [place] [facility] Apr 24, 2022 07:00 AM VA-TOBACCO QUIT 15 YRS OR MORE [facility] [place] [facility] Apr 27, 2021 03:00 PM VA-TOBACCO FORMER USER [facility] [place] [facility] Apr 27, 2021 03:00 PM VA-TOBACCO QUIT 15 YRS OR MORE [facility] [place] [facility] Mar 17, 2020 03:00 PM VA-TOBACCO FORMER USER [facility] [place] [facility] Mar 17, 2020 03:00 PM VA-TOBACCO QUIT 15 YRS OR MORE [facility] [place] [facility] Mar 31, 2019 09:04 AM VA-TOBACCO FORMER USER [facility] [place] [facility] Mar 31, 2019 09:04 AM VA-TOBACCO QUIT 15 YRS OR MORE [facility] [place] [facility] Encounter Notes: All associated encounter notes This section contains the clinical notes associated to the Encounter. Date/Time Encounter Note(s) Provider Source Apr 22, 2024 10:07 AM SOCIAL WORK GROUP COUNSELING NOTE: LOCAL TITLE: SOCIAL WORK GROUP NOTE STANDARD TITLE: SOCIAL WORK GROUP COUNSELING NOTE DATE OF NOTE: APR 22, 2024@10:07 ENTRY DATE: APR 22, 2024@10:08:04 AUTHOR: MARIALUISA SALCEDO EXP COSIGNER: URGENCY: STATUS: COMPLETED iRest Group Date: 04/22/24 Time: 9 AM Number of group members: 16 Analyst: Marialuisa Salcedo [facility] Group began with a introduction that iRest is a meditative tool that helps one deal with difficult situations skillfully and develop a deep and secure sense of well-being. The group members were invited to share what they would like to take away from the practice or leave behind. Members were then led through a 35 minute meditation in which they were guided to explore acceptance-based skills with difficult emotions and thoughts. Today's theme was on integration of irest into daily life. engaged with joint special operations and group members appropriately, participating in the meditation and reflection time. did not endorse SI/HI. 's intention today is to relax and develop a sense of peace and wisdom. DIAGNOSES: Persistent mood disorder, unspecified PTSD, chronic Cognitive Disorder (History of) Cerebral Infarction, Unspecified [facility] Video Connect (VVC) Standard Documentation VVC Clinician Resources Only: E911 (Emergency Call Relay Center): [phone] National [facility] Crisis Line - 988 then press #1. BETH Suicide Coordinator [phone], Ext. [phone]; Back-up Ext. [phone] [place] Police, Sangeeta CAMPOS [phone] Introduction: Visit is being conducted by [employer] Connect. identified with 2 identifiers: [X] Full Name [X] Date of [ ] VA ID Card Emergency Plan: confirmed and/or provided the following information in case of emergency or technology failure. PATIENT PHONE - PHONE NUMBER [CELLULAR] - Is patient phone number correct, if not, enter below: [place]'s phone number: TAJ DE LA ROSA [address], [place], [address] 's present location and address for appointment: his home 's emergency contact name and phone number: E-Cont.: JUVENCIO DE LA ROSA Relation Type: UNRELATED FRIEND/OTHER Relation Note: OTHERS [address] [place] [address] [facility] [place] reported that location is private and safe: Yes Informed Consent: informed of the risks and benefits of Telehealth video care. has the right to refuse video services. If refuses video visit, a [id number] visit will be scheduled. verbalized consent for this video visit: Yes provided consent for any other persons present for visit: Yes If yes, who and relationship to patient:group Secure visit: Visit was locked for security and privacy:Yes /nicole/ REBECA CARABALLO Talent Acquisition Specialist Signed: 04/22/2024 10:25 MARIALUISA SALCEDO [place] [facility]
--- OUTSIDE RECORDS SUMMARY | 2024-05-05 07:41 | XMS_ITS ---
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 Date/Time Encounter Type Encounter Description Reason Provider Source Dec 19, 2023 07:30 AM COMPRE OPH EXAM EST PT 1/> OPTOMETRY ICD-10-CM E11.9 Type 2 diabetes mellitus without complications WON QUEVEDO Encounter Template Text not used by [place] Assessments - Encounter Diagnoses This section includes the primary and secondary diagnoses documented for the Encounter. 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 This section includes future appointments and future orders which are active, pending or scheduled. Future Appointments This section includes appointments that were scheduled to occur 6 months from the date of the Encounter, up to a maximum of 20 appointments. The data comes from all [place] treatment facilities. Appointment Date/Time Appointment Type Appointme nt Facility Name Dec 23, 2023 07:00 AM AMBULATORY - PS[facility]IATRY [facility] [place] [facility] Dec 25, 2023 09:00 AM AMBULATORY - PS[facility]IATRY [facility] [place] [facility] Jan 01, 2024 09:00 AM AMBULATORY - PS[facility]IATRY [facility] [place] [facility] Jan 08, 2024 09:00 AM AMBULATORY - PS[facility]IATRY [facility] [place] [facility] Jan 09, 2024 09:30 AM AMBULATORY - MEDICINE [facility] Jan 14, 2024 07:00 AM AMBULATORY [facility] PS[facility]IATRY [facility] [place] [facility] Jan 20, 2024 08:30 AM AMBULATORY - NEUROLOGY [facility] [place] [facility] Jan 22, 2024 09:00 AM AMBULATORY [facility]AT[facility] [place] [facility] Jan 27, 2024 01:30 PM AMBULATORY - PS[facility]CHIATRY [facility] [place] [facility] Jan 29, 2024 09:00 AM AMBULATORY - PS[facility]IATRY [facility] [place] [facility] Feb 05, 2024 09:00 AM AMBULATORY - PS[facility] [place] [facility] Feb 10, 2024 07:00 AM [facility] Feb 24, 2024 07:00 AM [facility] Mar 04, 2024 09:00 AM [facility] Mar 11, 2024 09:00 AM [facility] Mar 18, 2024 09:00 AM [facility] Mar 25, 2024 09:00 AM [facility] Mar 30, 2024 07:00 AM [facility] Mar 30, 2024 01:00 PM [facility] Apr 01, 2024 09:00 AM AMBULATORY - PS[facility]IATRY [facility] [place] [facility] Lab Results: +/- 30 days of the encounter This section includes the Chemistry and Hematology Lab Results on record with [place] for the patient. Radiology Reports and Pathology Reports are provided separately, in subsequent sections. Lab Results This section contains the Chemistry/Hematology Results that were resulted 30 days before or 30 daysafter the date of the Encounter. Date/Time Source Result Type Result - Unit Interpretation Reference Range Comment Dec 19, 2023 07:55 AM [facility] FOLATE ([place]) Specimen Type: SERUM No comment entered. Ordering Provider: NAV PIERRE Report Released Date/Time: Oct 28, 2023 09:59 AM Reporting Lab: [facility] [place] [facility] [address] [address] Performing Lab: [facility] [address] [facility] [address] FOLATE ([place]) 9.07 ng/mL >5.2 Dec 19, 2023 07:55 AM [facility] TSH Specimen Type: SERUM No comment entered. Ordering Provider: PIERRE,JESSIC A E Report Released Date/Time: Oct 28, 2023 09:59 AM Reporting Lab: [facility] [address] [address] Performing Lab: [facility] [address] [address] TSH 1.09 u[IU]/mL 0.35-5.00 Dec 19, 2023 07:55 AM [facility] VITAMIN B12 Specimen Type: SERUM No comment entered. Ordering Provider: NAV PIERRE Report Released Date/Time: Oct 28, 2023 09:59 AM Reporting Lab: [facility] [address] [address] Performing Lab: [address] [address] VITAMIN B12 297 pg/mL 200-900 Dec 19, 2023 07:55 AM [facility] VITAMIN D (25-OH) Specimen Type: SERUM No comment entered. Ordering Provider: NAV PIERRE Report Released Date/Time: Oct 28, 2023 09:59 AM Reporting Lab: [facility] [address] [address] Performing Lab: [address] [address] VITAMIN D (25-OH) 38 ng/mL 20-50 Dec 19, 2023 07:55 AM [facility] HEMOGLOBIN A1C PANEL Specimen Type: BLOOD Comment: Values obtained from A1C measurements can vary. For atypical A1C assays, a reported value of 7.0 could actually be between 6.72 and 7.28 if measured by a reference method. A reported value of 9.0 could actually be between 8.73 and 9.27. Ref: http://www.ngs p.org/CAPdata. asp Ordering Provider: NAV PIERRE Report Released Date/Time: Dec 16, 2023 09:50 AM Reporting Lab: [address] [address] Performing Lab: [facility] [address] [address] HEMOGLOBIN A1C 5.5 4.0-5.6 Dec 19, 2023 07:55 AM [facility] LIPID PANEL FASTING Specimen Type: SERUM No comment entered. Ordering Provider: NAV PIERRE Report Released Date/Time: Dec 16, 2023 09:50 AM Reporting Lab: [address] [address] Performing Lab: [address] [address] CHOLESTEROL 113 mg/dL TRIGLYCERIDE 85 mg/dL 0-150 LDL calculated 50 mg/dL 0-129 CHOL/HDL 2.5 HDL CHOLESTEROL 46 mg/dL 40-60 Dec 19, 2023 07:55 AM [facility] BASIC METABOLIC PANEL (fasting) Specimen Type: SERUM No comment entered. Ordering Provider: NAV PIERRE Report Released Date/Time: Dec 16, 2023 09:50 AM Reporting Lab: [address] [address] Performing Lab: [address] [address] UREA NITROGEN 18 mg/dL 7-25 GLUCOSE 117 mg/dL H 65-100 SODIUM 141 mmol/L 135-145 POTASSIUM 4.3 mmol/L 3.5-5.0 CHLORIDE 107 mmol/L 100-110 CO2 25 meq/L 20-30 CREATININE, Serum 0.98 mg/dL 0.50-1.40 eGFR(CKD-EPI 2020) 85 mL/min >60 Social History: Smoking Status (Most current) and Tobacco Use (All prior to encounter date) This section includes the most current, and the historical, smoking and tobacco- related health factors from the [place] facility where the Encounter took place. Current Smoking Status This section includes the most current smoking, or tobacco-related health factor, from the [place] facility where the Encounter took place. Date/Time Current Smoking Status Comment Nurys ko Apr 15, 2023 07:00 AM VA-TOBACCO FORMER USER [facility] Tobacco Use History This section includes a history of the smoking, or tobacco-related health factors, that were collected on or before the date of the Encounter. The data comes from the [place] facility where the Encounter took place. Date/Time Smoking Status/Tobacco Use Comment F acility Apr 15, 2023 07:00 AM VA-TOBACCO QUIT 15 YRS OR MORE [facility] [place] [facility] Apr 24, 2022 07:00 AM VA-TOBACCO FORMER USER [facility] [place] [facility] Apr 24, 2022 07:00 AM VA-TOBACCO QUIT 15 YRS OR MORE [facility] [place] [facility] Apr 27, 2021 03:00 PM VA-TOBACCO FORMER USER [facility] [place] [facility] Apr 27, 2021 03:00 PM VA-TOBACCO QUIT 15 YRS OR MORE [facility] [place] [facility] Mar 17, 2020 03:00 PM VA-TOBACCO FORMER USER [facility] [place] [facility] Mar 17, 2020 03:00 PM VA-TOBACCO QUIT 15 YRS OR MORE [facility] [place] [facility] Mar 31, 2019 09:04 AM VA-TOBACCO FORMER USER [facility] [place] [facility] Mar 31, 2019 09:04 AM VA-TOBACCO QUIT 15 YRS OR MORE [facility] [place] [facility] Encounter Notes: All associated encounter notes This section contains the clinical notes associated to the Encounter. Date/Time Encounter Note(s) Provider Source Dec 19, 2023 07:19 AM OPTOMETRY NOTE: LOCAL TITLE: OPTOMETRY NOTE STANDARD TITLE: OPTOMETRY NOTE DATE OF NOTE: DEC 19, 2023@07:19 ENTRY DATE: DEC 19, 2023@07:19:13 AUTHOR: DUTCH QUEVEDO EXP COSIGNER: URGENCY: STATUS: COMPLETED Active problems - Computerized Problem List is the source for the followin. Cognitive disorder 2. Hypoglycaemia 3. Mood disorder 4. Migraine 5. Hemiparesis 6. Polyneuropathy 7. Posttraumatic stress disorder 8. Conversion disorder 9. Hypertension 10. DM - Diabetes mellitus 11. Gastro-esophageal reflux 12. Chronic renal disease 13. History of lacunar cerebrovascular accident 14. Thoracic post-laminectomy syndrome 15. History of surgery 16. Under care of multiple providers Active Outpatient Medications (including Supplies): Active Outpatient Medications Status 1) AMMONIUM LACTATE 12% LOTION APPLY SMALL AMOUNT ACTIVE TOPICALLY AT BEDTIME FOR DRY IRRITATED SKIN UNDER OCCLUSION 2) ARMODAFINIL 50MG TAB TAKE TWO TABLETS BY MOUTH EVERY ACTIVE (S) MORNING 3) BREXPIPRAZOLE 1MG TAB TAKE ONE TABLET BY MOUTH ONCE ACTIVE DAILY 4) CLONIDINE HCL 0.1MG TAB TAKE ONE TABLET BY MOUTH AT ACTIVE BEDTIME FOR INSOMNIA 5) LIDOCAINE 5% PATCH APPLY 1 PATCH TOPICALLY EVERY 12 ACTIVE HOURS NEEDED FOR NERVE PAIN (LEAVE PATCH ON FOR 12 HOURS, THEN REMOVE PATCH) 6) MIRABEGRON 25MG SA TAB TAKE ONE TABLET BY MOUTH ONCE HOLD DAILY 7) ONABOTULINUMTOXINA 200 UNIT/FRANCISCO J INJ INJECT ACTIVE DIRECTED INTRAMUSCULARLY EVERY THREE MONTHS FOR MIGRAINE HEADACHES 8) TRAZODONE HCL 100MG TAB TAKE TWO TABLETS BY MOUTH AT ACTIVE BEDTIME FOR INSOMNIA 9) TROSPIUM CL 20MG TAB TAKE ONE TABLET BY MOUTH TWICE ACTIVE DAILY ON AN EMPTY STOMACH Active Non-VA Medications Status 1) Non-VA AMLODIPINE BESYLATE 5MG TAB 5MG BY MOUTH ONCE ACTIVE DAILY 2) Non-VA ATORVASTATIN CALCIUM 80MG TAB 80MG BY MOUTH ACTIVE ONCE DAILY 3) Non-VA CLOPIDOGREL BISULFATE 75MG TAB 75MG BY MOUTH ACTIVE ONCE DAILY 4) Non-VA GABAPENTIN 400MG CAP 1200MG BY MOUTH THREE ACTIVE TIMES A DAY 5) Non-VA LOSARTAN 50MG TAB 50MG BY MOUTH ONCE DAILY ACTIVE 6) Non-VA MAGNESIUM OXIDE 250MG TAB 250MG BY MOUTH ONCE ACTIVE DAILY 7) Non-VA METHOCARBAMOL 750MG TAB 750MG BY MOUTH ONCE ACTIVE DAILY 8) Non-VA METOPROLOL TARTRATE 25MG TAB 25MG BY MOUTH ACTIVE ONCE DAILY 9) Non-VA OMEPRAZOLE 20MG EC CAP 40MG BY MOUTH ONCE ACTIVE DAILY 10) Non-VA POLYETHYLENE GLYCOL 3350 ORAL PWDR 17 GRAMS (1 ACTIVE CAPFUL) BY MOUTH ONCE DAILY 11) Non-VA SUCRALFATE 1GM TAB 1GM BY MOUTH TWICE DAILY ACTIVE 20 Total Medications Allergies: METFORMIN All medications including those prescribed by outside VA's, community providers, and all OTC meds were reviewed and reconciled with patient to the best of their abilities. This 68 year old MALE is seen today for comprehensive eye examination. Medical, eye, personal, and social history are all reviewed and is contributory to today's visit for diabetes without retinopathy or macular edema either eye, bilateral cataracts as well as strabismic amblyopia left eye. Chief Complaint: Feels vision is hazy distance and near for the last 6 months. Having more difficulty reading small print at near. 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 Current Wear: OD: +4.25 -0.25 axis 175 2 base up OS: +5.00 -0.25 axis 030 1.25 base down +2.50 add Autorefraction: OD: +4.75 -0.75 axis 179 OS: +5.25 -0.25 axis 154 Refraction: OD: +4.50 -0.25 axis 175 20/20 more clear OS: +4.00 -0.25 axis 030 20/ 0-2 +2.75 add 20/20 Tonometry: 7 OD 7 OS Time: 7:28 AM dilated with tropicamide 1% each eye after dilation warning given and verbal consent obtained PreTreatment IOP: OD OS Pachymetry: Anterior segment: Lids: Hoodwinking with dermatochalasis and ptosis right greater than left upper lid Conj: White and quiet each eye Cornea: Clear centrally without staining or pigment each eye AC: 2+ and quiet each eye Iris: Normal no NVI each eye Lens: 1+ nuclear sclerosis each eye Vit: Clear each eye Fundus exam: Dilated:xxx non dilated: C/D: 0.25 each eye with distinct disc margins, good color and no NVD Macula: No lipid, edema, thickening each eye A/V: 1/2 each eye Vessels: Normal each eye Periphery: Bleeding peripheral views but no obvious NVE, holes, tears, detachments each eye Impression: Diabetes without retinopathy or macular edema either eye. Stressed importance of optimize control of blood sugar, blood pressure and cholesterol with healthy lifestyle. Bilateral nuclear sclerotic cataracts not visually significant at present update glasses today. 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 His current prismatic correction resolved any diplopia in primary gaze. Plan: Patient education as noted above. Reviewed exam findings now. Ordered new glasses today. Return in 12 months or sooner if need be. Education: Diabetes: Patient was educated regarding diabetes and related ocular complications including retinopathy and cataract formation as well as other related systemic complications. The importance of good blood sugar control, blood sugar testing as recommended by their PCP and the importance of timely follow up were all emphasized. Return to Clinic 12 months or sooner if need be. Ophthalmic medication reconciliation: He is currently not taking or prescribed any ocular medications. Medication Reconciliation: Outpatient: Has the patient been taking medications as documented in the EMLR? YES: The patient has been taking medications as documented in the EMLR. Essential Medication List for Review used to complete this medication reconciliation. INCLUDED IN THIS LIST: Alphabetical list of active outpatient prescriptions dispensed from this VA (local) and dispensed from another VA or [facility] facility (remote) as well as inpatient orders (local, pending and active), local clinic medications, locally documented non-VA medications, and local prescriptions that have or been discontinued in the past 90 days. - All changes in medications, including all non-VA/Herbal/OTC medications were entered into CPRS. - If there were any medications the patient should no longer take, they were discontinued. - The patient/caregiver was instructed to update this list, discard old lists, and take this list to the next appointment, whether with a VA or non-VA provider. JLV Link Data on this list may not be complete. Please check JLV. Allergies/ADRs (Tool #5) FACILITY ALLERGY/ADR -------- No Remote Allergy/ADR Data available for this patient [facility] [place] [facility] METFORMIN Med Recon [facility] (Tool #1) INCLUDED IN THIS LIST: Alphabetical list of active outpatient prescriptions dispensed from this [place] (local) and dispensed from another [place] or [facility] facility (remote) as well as inpatient orders (local pending and active), local clinic medications, locally documented non-VA medications, and local prescriptions that have or been discontinued in the past 90 days. Non-VA Meds Last Documented On: Jul 29, 2023 NOTE The display of VA prescriptions dispensed from another [place] or [facility] facility (remote) is limited to active outpatient prescription entries matched to National Drug File at the originating site and may not include some items such as investigational drugs, compounds, etc. NOT INCLUDED IN THIS LIST: Medications self-entered by the patient into personal health records (i.e. [employer]) are NOT included in this list. Non-VA medications documented outside this [place], remote inpatient orders (regardless of status) and remote clinic medications are NOT included in this list. The patient and provider must always discuss medications the patient is taking, regardless of where the medication was dispensed or obtained. Non-VA AMLODIPINE BESYLATE 5MG TAB TAKE ONE TABLET BY MOUTH ONCE DAILY Medication prescribed by Non-VA provider. Indication: FOR HIGH BLOOD PRESSURE OUTPT AMMONIUM LACTATE 12% LOTION (Status = Active) APPLY SMALL AMOUNT TOPICALLY AT BEDTIME FOR DRY IRRITATED SKIN UNDER OCCLUSION Rx# [id number] Last Released: 08/23/23 Qty/Days Supply: 240/60 Rx Expiration Date: 08/21/24 Refills Remainin Indication: FOR DRY SKIN OUTPT ARMODAFINIL 50MG TAB (Status = Discontinued) TAKE ONE TABLET BY MOUTH EVERY MORNING FOR 4 DAYS, THEN TAKE TWO TABLETS EVERY MORNING Rx# [id number] Last Released: 10/28/23 Qty/Days Supply: 56/30 Rx Expiration Date: 11/27/23 Refills Remainin Indication: TO IMPROVE WAKEFULNESS OUTPT ARMODAFINIL 50MG TAB (Status = Discontinued) TAKE TWO TABLETS BY MOUTH EVERY MORNING TO IMPROVE WAKEFULNESS Rx# [id number] Last Released: 11/26/23 Qty/Days Supply: 6030 Rx Expiration Date: 05/27/24 Refills Remainin Indication: TO IMPROVE WAKEFULNESS OUTPT ARMODAFINIL 50MG TAB (Status = Active/Suspended) TAKE TWO TABLETS BY MOUTH EVERY MORNING Rx# [id number] Last Released: Qty/Days Supply: 60 Rx Expiration Date: 06/17/24 Refills Remainin Indication: TO IMPROVE WAKEFULNESS Non-VA ATORVASTATIN CALCIUM 80MG TAB TAKE ONE TABLET BY MOUTH ONCE DAILY Medication prescribed by Non-VA provider. per neurology notes 12/29/2018 - OUTPT BREXPIPRAZOLE 1MG TAB (Status = Active) TAKE ONE TABLET BY MOUTH ONCE DAILY Rx# [id number] Last Released: 12/18/23 Qty/Days Supply: 9090 Rx Expiration Date: 12/16/24 Refills Remainin Indication: MOOD OUTPT BREXPIPRAZOLE 2MG TAB (Status = Discontinued) TAKE ONE TABLET BY MOUTH ONCE DAILY FOR MOOD DOSE INCREASE Rx# [id number] Last Released: 09/23/23 Qty/Days Supply: 90 Rx Expiration Date: 09/19/24 Refills Remainin Indication: MOOD OUTPT CLONIDINE HCL 0.1MG TAB (Status = Discontinued) TAKE ONE TABLET BY MOUTH AT BEDTIME FOR INSOMNIA Rx# [id number] Last Released: 09/02/23 Qty/Days Supply: 9090 Rx Expiration Date: 05/23/24 Refills Remainin Indication: INSOMNIA OUTPT CLONIDINE HCL 0.1MG TAB (Status = Active) TAKE ONE TABLET BY MOUTH AT BEDTIME FOR INSOMNIA Rx# [id number] Last Released: 11/26/23 Qty/Days Supply: 90/90 Rx Expiration Date: 11/25/24 Refills Remainin Indication: INSOMNIA Non-VA CLOPIDOGREL BISULFATE 75MG TAB TAKE ONE TABLET BY MOUTH ONCE DAILY Medication prescribed by Non-VA provider. per neurology notes 12/29/2018 - Non-VA GABAPENTIN 400MG CAP TAKE 3 CAPSULES BY MOUTH THREE TIMES A DAY Non-VA medication recommended by VA provider. Medication prescribed by Non-VA provider. per neurology notes 12/29/2018 - OUTPT LIDOCAINE 5% PATCH (Status = Active) APPLY 1 PATCH TOPICALLY EVERY 12 HOURS NEEDED FOR NERVE PAIN (LEAVE PATCH ON FOR 12 HOURS, THEN REMOVE PATCH) Rx# [id number] Last Released: 07/30/23 Qty/Days Supply: Rx Expiration Date: 07/29/24 Refills Remainin Indication: FOR NERVE PAIN Non-VA LOSARTAN 50MG TAB TAKE ONE TABLET BY MOUTH ONCE DAILY per neurology notes 12/29/2018 - Non-VA MAGNESIUM OXIDE 250MG TAB TAKE ONE TABLET BY MOUTH ONCE DAILY Non-VA medication recommended by VA provider. Medication prescribed by Non-VA provider. per neurology notes 12/29/2018 - Non-VA METHOCARBAMOL 750MG TAB TAKE ONE TABLET BY MOUTH ONCE DAILY Medication prescribed by Non-VA provider. per neurology notes 12/29/2018 - Non-VA METOPROLOL TARTRATE 25MG TAB TAKE ONE TABLET BY MOUTH ONCE DAILY Medication prescribed by Non-VA provider. per neurology notes 12/29/2018 - OUTPT MIRABEGRON 25MG SA TAB (Status = On Hold) TAKE ONE TABLET BY MOUTH ONCE DAILY Rx# [id number] Last Released: Qty/Days Supply: Rx Expiration Date: 10/23/24 Refills Remainin Non-VA OMEPRAZOLE 20MG EC CAP TAKE 2 CAPSULES BY MOUTH ONCE DAILY Medication prescribed by Non-VA provider. per neurology notes 12/29/2018 - OUTPT ONABOTULINUMTOXINA 200 UNIT/FRANCISCO J INJ (Status = Active) INJECT DIRECTED INTRAMUSCULARLY EVERY THREE MONTHS FOR MIGRAINE HEADACHES Rx# [id number] Last Released: 10/07/23 Qty/Days Supply: Rx Expiration Date: 07/22/24 Refills Remainin Non-VA POLYETHYLENE GLYCOL 3350 ORAL PWDR TAKE 17 GRAMS (1 CAPFUL) BY MOUTH ONCE DAILY Non-VA medication recommended by VA provider. Medication prescribed by Non-VA provider. per neurology notes 12/29/2018 - Non-VA SUCRALFATE 1GM TAB TAKE ONE TABLET BY MOUTH TWICE DAILY Non-VA medication recommended by VA provider. Medication prescribed by Non-VA provider. per neurology notes 12/29/2018 - OUTPT TRAZODONE HCL 100MG TAB (Status = Discontinued) TAKE TWO TABLETS BY MOUTH AT BEDTIME FOR INSOMNIA Rx# [id number] Last Released: 09/30/23 Qty/Days Supply: Rx Expiration Date: 05/23/24 Refills Remainin Indication: INSOMNIA OUTPT TRAZODONE HCL 100MG TAB (Status = Active) TAKE TWO TABLETS BY MOUTH AT BEDTIME FOR INSOMNIA Rx# [id number] Last Released: 12/11/23 Qty/Days Supply: Rx Expiration Date: 11/25/24 Refills Remainin Indication: INSOMNIA OUTPT TROSPIUM CL 20MG TAB (Status = Discontinued) TAKE ONE TABLET BY MOUTH TWICE DAILY ON AN EMPTY STOMACH Rx# [id number] Last Released: 09/24/23 Qty/Days Supply: 60 Rx Expiration Date: 08/23/24 Refills Remainin OUTPT TROSPIUM CL 20MG TAB (Status = Active) TAKE ONE TABLET BY MOUTH TWICE DAILY ON AN EMPTY STOMACH Rx# [id number] Last Released: 11/26/23 Qty/Days Supply: 60 Rx Expiration Date: 10/28/24 Refills Remainin SUPPLIES Declines printed copy of medication list now. /nicole/ Dutch Quevedo OD CHIEF OF OPTOMETRY Signed: 12/19/2023 08:19 DUTCH QUEVEDO [facility]
--- OUTSIDE RECORDS SUMMARY | 2024-05-05 07:41 | XMS_ITS ---
Author Name Department [place] Organization [facility] [place] Address [address] [place] [address] Care Team Providers Care Central Sterilization Technician Name Role Phone JOSE MANUEL PITT [...] Burgess's Name Patient's Relationship to Policy Burgess [facility] HEALTH PLAN MEDICARE SUPPLEMEN BETY MEDIC ARE SUPPL EMENT A Feb 18, 2022 SUPP1 [id number] GINA [address] [place] ROSA PATIENT [facility] MED PREFER/SEN IOR CARE MEDICARE SUPPLEMEN BETY MEDIC ARE SUPPL EMENT A Feb 18, 2021 SUPP1 [id number] GINA DE LA ROSA PATIENT Selected Encounter This section includes the information on record at [place] for the Encounter. Date/Time Encounter Type Encounter Description Reason Pro vider Source Jan 27, 2024 09:00 AM Outpatient En[facility] En[facility] Template Text not used by [place] Plan of Treatment: Future Appointments (+ 6 months) and Future Tests (+/- 45 days) The Plan of Treatment section includes future care activities for the patient from all [place] treatmentfacilities. This section includes future appointments and future orders which are active, pending or scheduled. Future Appointments This section includes appointments that were scheduled to occur 6 months from the date of the Encounter, up to a maximum of 20 appointments. The data comes from all [place] treatment facilities. Appointment Date/Time Appointment Type Appointme nt Facility Name Jan 29, 2024 09:00 AM AMBULATORY [facility]AT[facility] [place] [facility] Feb 05, 2024 09:00 AM AMBULATORY [facility] [place] [facility] Feb 10, 2024 07:00 AM AMBULATORY [facility] PS[facility]IATRY [facility] [place] [facility] Feb 24, 2024 07:00 AM AMBULATORY [facility] PS[facility]IATRY [facility] [place] [facility] Mar 04, 2024 09:00 AM AMBULATORY [facility] PS[facility]IATRY [facility] [place] [facility] Mar 11, 2024 09:00 AM AMBULATORY - PS[facility]IATRY [facility] [place] [facility] Mar 18, 2024 09:00 AM AMBULATORY - PS[facility]IATRY [facility] [place] [facility] Mar 25, 2024 09:00 AM AMBULATORY [facility] PS[facility]CHIATRY [facility] [place] [facility] Mar 30, 2024 07:00 AM AMBULATORY - PS[facility]IATRY [facility] [place] [facility] Mar 30, 2024 01:00 PM AMBULATORY - PS[facility]CHIATRY [facility] [place] [facility] Apr 01, 2024 09:00 AM AMBULATORY [facility] PS[facility]RY [facility] [place] [facility] Apr 08, 2024 09:00 AM AMBULATORY - PS[facility]CHIATRY [facility] [place] [facility] Apr 13, 2024 07:00 AM AMBULATORY - PS[facility]CHIATRY [facility] [place] [facility] Apr 15, 2024 09:00 AM AMBULATORY - PS[facility]CHIATRY [facility] [place] [facility] Apr 20, 2024 09:00 AM AMBULATORY - NEUROLOGY [facility] [place] [facility] Apr 22, 2024 09:00 AM AMBULATORY - PS[facility]CHIATRY [facility] [place] [facility] Apr 29, 2024 09:00 AM AMBULATORY - PS[facility]CHIATRY [facility] [place] [facility] May 04, 2024 07:00 AM AMBULATORY [facility] PS[facility] [place] [facility] May 04, 2024 10:15 AM AMBULATORY - MEDICINE [facility] [place] [facility] May 06, 2024 09:00 AM AMBULATORY - PSYCHIATRY [facility] [place] [facility] Social History: Smoking Status (Most current) and Tobacco Use (All prior to encounter date) This section includes the most current, and the historical, smoking and tobacco- related health factors from the [place] facility where the Encounter took place. Current Smoking Status This section includes the most current smoking, or tobacco-related health factor, from the [place] facility where the Encounter took place. Date/Time Current Smoking Status Comment Facil ity Apr 15, 2023 07:00 AM VA-TOBACCO FORMER USER [place] [facility] [place] [facility] Tobacco Use History This section includes a history of the smoking, or tobacco-related health factors, that were collected on or before the date of the Encounter. The data comes from the [place] facility where the Encounter took place. Date/Time Smoking Status/Tobacco Use Comment F acility Apr 15, 2023 07:00 AM VA-TOBACCO QUIT 15 YRS OR MORE [facility] [place] [facility] Apr 24, 2022 07:00 AM VA-TOBACCO FORMER USER [facility] [place] [facility] Apr 24, 2022 07:00 AM VA-TOBACCO QUIT 15 YRS OR MORE [facility] [place] [facility] Apr 27, 2021 03:00 PM VA-TOBACCO FORMER USER [facility] [place] [facility] Apr 27, 2021 03:00 PM VA-TOBACCO QUIT 15 YRS OR MORE [facility] [place] [facility] Mar 17, 2020 03:00 PM VA-TOBACCO FORMER USER [facility] [place] [facility] Mar 17, 2020 03:00 PM VA-TOBACCO QUIT 15 YRS OR MORE [facility] [place] [facility] Mar 31, 2019 09:04 AM VA-TOBACCO FORMER USER [facility] [place] [facility] Mar 31, 2019 09:04 AM VA-TOBACCO QUIT 15 YRS OR MORE [facility] [place] [facility] Encounter Notes: All associated encounter notes This section contains the clinical notes associated to the Encounter. Date/Time Encounter Note(s) Provider Source Jan 27, 2024 08:29 AM ADMINISTRATIVE NOTE: LOCAL TITLE: ADMINISTRATIVE NOTE STANDARD TITLE: ADMINISTRATIVE NOTE DATE OF NOTE: JAN 27, 2024@08:29 ENTRY DATE: JAN 27, 2024@08:29:56 AUTHOR: YARELY WIGGINS EXP COSIGNER: URGENCY: STATUS: COMPLETED AMSA spoke with , he's aware provider is out today and that we only have 2 future appointments set up at this point. [place] and spouse will call back to set up more appointments. /nicole/ YARELY WIGGINS ADVANCED WEATHERIZATION FIELD TECHNICIAN Signed: 01/27/2024 08:31 Receipt Acknowledged By: 01/28/2024 06:54 /nicole/ Moises Padilla PsyD Staff Psychologist YARELY WIGGINS [facility]
--- OUTSIDE RECORDS SUMMARY | 2024-05-05 07:41 | XMS_ITS | Encounter Summary ---
Author Name [facility] [place] Organization [facility] [place] Address [address] [place] [address] Care Team Providers Care Therapy Technician Name Role Phone JOSE MANUEL PITT [...] Burgess's Name Patient's Relationship to Policy Burgess [facility] HEALTH PLAN MEDICARE SUPPLEMEN BETY MEDIC ARE SUPPL EMENT A Feb 18, 2022 SUPP1 [id number] GINA [address] [place] ROSA PATIENT [facility] MED PREFER/SEN IOR CARE MEDICARE SUPPLEMEN BETY MEDIC ARE SUPPL EMENT A Feb 18, 2021 SUPP1 [id number] GINA [address] ROSA PATIENT Selected Encounter This section includes the information on record at [place] for the Encounter. Date/Time Encounter Type Encounter Description Reason Provider Source Oct 30, 2023 09:00 AM GROUP PS[facility]CHOTHERAPY [facility] ICD-10-CM F43.12 Post-traumati c stress disorder, chronic MARIALUISA SALCEDO Encounter Template Text not used by [place] Assessments - Encounter Diagnoses This section includes the primary and secondary diagnoses documented for the Encounter. Date/Time Primary/Secondary Diagnosis Diagnosis Name Provider Source Oct 30, 2023 10:14 AM PRIMARY Post-traumatic stress disorder, chronic MARIALUISA SALCEDO [facility] [place] [facility] Plan of Treatment: Future Appointments (+ 6 [...] 20 appointments. The data comes from all [place] treatment facilities. Appointment Date/Time Appointment Type Appointme nt Facility Name Nov 06, 2023 09:00 AM AMBULATORY - PS[facility]IATRY [facility] [place] [facility] Nov 13, 2023 09:00 AM AMBULATORY - PS[facility]CHIATRY [facility] [place] [facility] Nov 19, 2023 07:00 AM AMBULATORY - PS[facility]CHIATRY [facility] [place] [facility] Nov 20, 2023 09:00 AM AMBULATORY - PS[facility]CHIATRY [facility] [place] [facility] Nov 27, 2023 09:00 AM AMBULATORY - PS[facility]CHIATRY [facility] [place] [facility] Dec 04, 2023 09:00 AM AMBULATORY - PS[facility]CHIATRY [facility] [place] [facility] Dec 11, 2023 09:00 AM AMBULATORY - PS[facility]CHIATRY [facility] [place] [facility] Dec 16, 2023 09:30 AM AMBULATORY - PS[facility]CHIATRY [facility] [place] [facility] Dec 18, 2023 09:00 AM AMBULATORY - PS[facility]CHIATRY [facility] [place] [facility] Dec 19, 2023 07:30 AM AMBULATORY [facility] MEDICINE [facility] [place] [facility] Dec 23, 2023 07:00 AM AMBULATORY - PS[facility]CHIATRY [facility] [place] [facility] Dec 25, 2023 09:00 AM AMBULATORY - PS[facility]CHIATRY [facility] [place] [facility] Jan 01, 2024 09:00 AM AMBULATORY - PS[facility]CHIATRY [facility] [place] [facility] Jan 08, 2024 09:00 AM AMBULATORY - PS[facility]CHIATRY [facility] [place] [facility] Jan 09, 2024 09:30 AM AMBULATORY - MEDICINE [facility] Jan 14, 2024 07:00 AM AMBULATORY - PS[facility]CHIATRY [facility] [place] [facility] Jan 20, 2024 08:30 AM AMBULATORY - NEUROLOGY [facility] [place] [facility] Jan 22, 2024 09:00 AM AMBULATORY - PS[facility]CHIATRY [facility] [place] [facility] Jan 27, 2024 01:30 PM AMBULATORY - PS[facility]CHIATRY [facility] [place] [facility] Jan 29, 2024 09:00 AM [facility] Active, Pending, and Scheduled Orders This section includes a listing of several types of active, pending, and scheduled orders, including clinic medications orders, diagnostic test orders, procedure orders and consult orders; where the start date of the order is 45 days before the date of the Encounter or 45 days after the date of theEncounter. The data comes from all [place] treatment facilities. Test Date/Time Test Type Test Details Facility Name Oct 25, 2023 02:36 PM Consult Order COMMUNITY CARE-UROLOGY Cons Pediatric Oncologist's Choice [facility] [place] [facility] Oct 28, 2023 01:47 PM Consult Order COMMUNITY CARE-NEUROLOGY Cons Pediatric Oncologist's [facility] Social History: Smoking Status (Most current) and Tobacco Use (All prior to encounter date) This section includes the most current, and the historical, smoking and tobacco- related health factors from the [place] facility where the Encounter took place. Current Smoking Status This section includes the most current smoking, or tobacco-related health factor, from the [place] facility where the Encounter took place. Date/Time Current Smoking Status Comment Nurys millrey Apr 15, 2023 07:00 AM VA-TOBACCO FORMER [facility]ER [facility] Tobacco Use History This section includes a history of the smoking, or tobacco-related health factors, that were collected on or before the date of the Encounter. The data comes from the [place] facility where the Encounter took place. Date/Time Smoking Status/Tobacco Use Comment F jodie Apr 15, 2023 07:00 AM VA-TOBACCO QUIT 15 YRS OR MORE [facility] [place] [facility] Apr 24, 2022 07:00 AM VA-TOBACCO FOR[facility] Apr 24, 2022 07:00 AM VA-TOBACCO QUIT 15 YRS OR MORE [facility] [place] [facility] Apr 27, 2021 03:00 PM VA-TOBACCO FORMER USER [facility] [place] [facility] Apr 27, 2021 03:00 PM VA-TOBACCO QUIT 15 YRS OR MORE [facility] [place] [facility] Mar 17, 2020 03:00 PM VA-TOBACCO FORMER USER [facility] [place] [facility] Mar 17, 2020 03:00 PM VA-TOBACCO QUIT 15 YRS OR MORE [facility] [place] [facility] Mar 31, 2019 09:04 AM VA-TOBACCO FORMER USER [facility] [place] [facility] Mar 31, 2019 09:04 AM VA-TOBACCO QUIT 15 YRS OR MORE [facility] [place] [facility] Encounter Notes: All associated encounter notes This section contains the clinical notes associated to the Encounter. Date/Time Encounter Note(s) Provider Source Oct 30, 2023 10:03 AM SOCIAL WORK GROUP COUNSELING NOTE: LOCAL TITLE: SOCIAL WORK GROUP NOTE STANDARD TITLE: SOCIAL WORK GROUP COUNSELING NOTE DATE OF NOTE: OCT 30, 2023@10:03 ENTRY DATE: OCT 30, 2023@10:03:10 AUTHOR: MARIALUISA SALCEDO EXP COSIGNER: URGENCY: STATUS: COMPLETED iRest Group Date: 10/30/23 Time: 9 AM Number of group members: 12 Medical Grade Shoemaker: Marialuisa Salcedo, [facility] Group began with a introduction that iRest [...] emotions and thoughts. Today's theme was on the inner resource. engaged with language arts teacher and group members appropriately, participating in the meditation and reflection time. [place] did not endorse SI/HI. 's intention was to relax, ground, and start the day with motivation and focus. DIAGNOSES: Persistent mood disorder, unspecified PTSD, chronic Cognitive Disorder (History of) Cerebral Infarction, Unspecified [facility] Video Connect (VVC) Standard Documentation VVC Clinician Resources Only: E911 (Emergency Call Relay Center): [phone] National Veterans Crisis Line - 988 then press #1. CLEMENTENehemias Suicide Coordinator [phone], Ext. [phone]; Back-up Ext. [phone] [place] Police, CLEMENTESangeeta Del Cid [phone] Introduction: Visit is being conducted by [place] [employer] Connect. [place] identified with 2 identifiers: [X] Full Name [X] Date of [ ] VA ID Card Emergency Plan: [place] confirmed and/or provided the following information in case of emergency or technology failure. PATIENT PHONE - PHONE NUMBER [CELLULAR] - Is patient phone number correct, if not, enter below: [place]'s phone number: TAJ SAVANNA ESTRELLA [address], [place], [address] [place]'s present location and address for appointment: his home 's emergency contact name and phone number: E-Cont.: JUVENCIO DE LA ROSA Relation Type: UNRELATED FRIEND/OTHER Relation Note: OTHERS [address] [place] [address] [facility] reported that location is private and safe: Yes Informed Consent: [place] informed of the risks and benefits of Telehealth video care. has the right to refuse video services. If refuses video visit, a [id number] visit will be scheduled. verbalized consent for this video visit: Yes [place] provided consent for any other persons present for visit: Yes If yes, who and relationship to patient:group Secure visit: Visit was locked for security and privacy:Yes /nicole/ REBECA CARABALLO Windows Server Specialist Signed: 10/30/2023 10:15 MARIALUISA SALCEDO [place] [facility]
--- OUTSIDE RECORDS SUMMARY | 2024-05-05 07:41 | XMS_ITS ---
Author Name [facility] [place] [facility] [place] [facility] [place] Address [address] [place] [address] Care Team Providers Care Reports Developer Name Role Phone JOSE MANUEL PITT Primary [...] Burgess's Name Patient's Relationship to Policy Burgess [facility] MEDICARE SUPPLEMEN BETY MEDIC ARE SUPPL EMENT A Feb 18, 2022 SUPP1 [id number] GINA DE LA ROSA PATIENT [facility]/SEN IOR CARE MEDICARE SUPPLEMEN BETY MEDIC ARE SUPPL EMENT A Feb 18, 2021 SUPP1 [id number] [phone] GINA DE LA ROSA PATIENT Selected Encounter This section includes the information on record at [place] for the Encounter. Date/Time Encounter Type Encounter Description Reason Provider Source Apr 20, 2024 09:00 AM OFFICE O/P EST MOD 30 MIN NEUROLOGY ICD-10-CM G43.909 Migraine, unsp, not intractable, without status migrainosus CHANDU CARRILLO Encounter Template Text not used by [place] Assessments - Encounter Diagnoses This section includes the primary and secondary diagnoses documented for the Encounter. Date/Time Primary/Secondary Diagnosis Diagnosis Name Provider Source Apr 20, 2024 09:18 AM PRIMARY Migraine, unsp, not intractable, without status migrainosus CHANDU CARRILLO [facility] Plan of Treatment: Future Appointments (+ 6 months) and Future Tests (+/- 45 days) The Plan of Treatment section includes future care activities for the patient from all [place] treatmentfacilities. This section includes future appointments and future orders which are active, pending or scheduled. Future Appointments This section includes appointments that were scheduled to occur 6 months from the date of the Encounter, up to a maximum of 20 appointments. The data comes from all [place] treatment facilities. Appointment Date/Time Appointment Type Appointme nt Facility Name Apr 22, 2024 09:00 AM AMBULATORY - [facility]IATRY [facility] Apr 29, 2024 09:00 AM AMBULATORY - PSYCHIATRY [facility] May 04, 2024 07:00 AM AMBULATORY - PS[facility]CHIATRY [facility] May 04, 2024 10:15 AM AM[facility]ULATORY [facility] MEDIC[facility] May 06, 2024 09:00 AM AMBULATORY - PSYCHIATRY [facility] May 13, 2024 09:00 AM AMBULATORY - PS[facility]CHIATRY [facility] May 14, 2024 09:30 AM AMBULATORY - MEDICINE [facility] May 20, 2024 09:00 AM AMBULATORY - PSYCHIATRY [facility] May 21, 2024 02:00 PM AMBULATORY - MEDICINE [facility] May 25, 2024 07:00 AM AMBULATORY - PSYCHIATRY [facility] May 27, 2024 09:00 AM AMBULATORY - PSYCHIATRY [facility] Jun 01, 2024 01:00 PM AMBULATORY - PSYCHIATRY [facility] Jun 03, 2024 09:00 AM AMBULATORY - PSYCHIATRY [facility] Jun 09, 2024 07:00 AM AMBULATORY - PS[facility]CHIATRY [facility] Jun 10, 2024 09:00 AM [facility] June 22, 2024 07:00 AM [facility] July 06, 2024 07:00 AM [facility] Jul 20, 2024 09:00 AM AMBULATORY - NEUROLOGY [facility] Aug 03, 2024 08:30 AM AMBULATORY - MEDICINE [facility] Active, Pending, and Scheduled Orders This section includes a listing of several types of active, pending, and scheduled orders, including clinic medications orders, diagnostic test orders, procedure orders and consult orders; where the start date of the order is 45 days before the date of the Encounter or 45 days after the date of theEncounter. The data comes from all [place] treatment facilities. Test Date/Time Test Type Test Details Facility Name Apr 27, 2024 12:00 AM Laboratory - Chemi stry Order OCCULT BLOOD FIT X1 SCREEN (MFP ONLY) STOOL FECES SP [facility] Vital Signs: All taken on the encounter date This section contains inpatient and outpatient Vital Signs collected on the date of the Encounter. Date/Time Temperature Pulse Blood Pressure Respiratory Rate SP02 Pain Height Weight Body Mass Index Source Apr 20, 2024 09:04 AM 97.2 68 158/77 18 96 6 245 34 [facility] Social History: Smoking Status (Most current) and Tobacco Use (All prior to encounter date) This section includes the most current, and the historical, smoking and tobacco- related health factors from the [place] facility where the Encounter took place. Current Smoking Status This section includes the most current smoking, or tobacco-related health factor, from the [place] facility where the Encounter took place. Date/Time Current Smoking Status Comment Facil ity Mar 30, 2024 07:00 AM [place]-TOBACCO USE FOR TYRONE CIGARETTES [facility] Tobacco Use History This section includes a history of the smoking, or tobacco-related health factors, that were collected on or before the date of the Encounter. The data comes from the [place] facility where the Encounter took place. Date/Time Smoking Status/Tobacco Use Comment F acility Mar 30, 2024 07:00 AM VA-TOBACCO USE FOR TYRONE OTHER TYPE [facility] Apr 15, 2023 07:00 AM VA-TOBACCO FORMER USER [facility] Apr 15, 2023 07:00 AM VA-TOBACCO QUIT 15 YRS OR MORE [facility] Apr 24, 2022 07:00 AM VA-TOBACCO FORMER USER [facility] Apr 24, 2022 07:00 AM VA-TOBACCO QUIT 15 YRS OR MORE [facility] Apr 27, 2021 03:00 PM VA-TOBACCO FORMER USER [facility] Apr 27, 2021 03:00 PM VA-TOBACCO QUIT 15 YRS OR MORE [facility] Mar 17, 2020 03:00 PM VA-TOBACCO FORMER USER [facility] Mar 17, 2020 03:00 PM VA-TOBACCO QUIT 15 YRS OR MORE [facility] Mar 31, 2019 09:04 AM VA-TOBACCO FORMER USER [facility] Mar 31, 2019 09:04 AM VA-TOBACCO QUIT 15 YRS OR MORE [facility] Encounter Notes: All associated encounter notes This section contains the clinical notes associated to the Encounter. Date/Time Encounter Note(s) Provider Source Apr 20, 2024 09:01 AM NEUROLOGY OUTPATIE NT NOTE: LOCAL TITLE: NEUROLOGY CLINIC NOTE STANDARD TITLE: NEUROLOGY OUTPATIENT NOTE DATE OF NOTE: APR 20, 2024@09:01 ENTRY DATE: APR 20, 2024@09:01:46 AUTHOR: CHANDU CARRILLO EXP COSIGNER: URGENCY: STATUS: COMPLETED Interval Hx Apr Pt reports good control of headaches during the active period of botox, with some return of headaches over the past few weeks as botox effectiveness waned. During active period, had fewer headaches, reduced severity of headaches. Pain level today minimal (0/10). NEUROLOGIC EXAM: Gen: WD OW WM in NAD, appropriate affect, eye contact and social interaction. MS: AAO to Person/Place/Situation Able to maintain attention to conversation and follow directions on exam without distractability, impersistence, or perseveration. Fluent language and intact comprehension, without any paraphasic errors. Strength in both UE and LE generally intact. Pt ambulating with cane, unchanged gait No Vitals Were Found 247 lb [112.04 kg] (10/28/2023 07:58) STAFF NAME: Dr. Carrillo IDENTIFICATION CONFIRMED BY ASSISTING STAFF MEMBER: (X) Cinebar stating full name (X) Cinebar stating full SS# (X) stating PROCEDURE NOTE Yes: POST PROCEDURE PAIN Yes: Pain 1-10:0 MEDICATION RECONCILATION REMINDER DONE Yes DISCHARGE INSTRUCTIONS OUTPATIENT NOTE PRINTED Yes Assessment/Plan: Pt w/chronic migraines, got botox today as per FDA protocol. Pt tolerated procedure well. Pt will RTC in 3 months for next series of botox injx. Chandu Carrillo MD Staff Neurologist [facility] PROCEDURE NOTE PROCEDURE; Botulinum Toxin Injections Consent: obtained verbally, and through IMED. The patient was counseled regarding: the steps of the procedure, risks and possible adverse effects (including fever, local injection reaction, pain, bruising, body aches, and excessive localized weakness), potential benefits, and alternatives. The patient voiced an understanding and desire to proceed with the procedure. Prior to the procedure, a final time out was performed at Apr@09:10 with all members of operative team verifying informed consent, correct patient, procedure, side/level/site, correct positioning. Provider: Dr. Kaylan Pearson LPN NeuroToxin: Botox / onobotulinum toxin A Procedure: non- Botox was reconstituted using 4 cc of preservative-free normal saline to a concentration of 50 units/cc. Lot #: [id number] Exp: April 2026 EMG Guidance: None The site(s) were prepped with alcohol and injected as noted below. Anesthesia: None The patient tolerated the procedure well. Complications: None Pain level following procedure: unchanged from initial pain level, following brief period of injx site discomfort. MUSCLE SIDE # OF SITES & DOSE TOTAL MUSCLE DOSE Face/head Procerus Midline 1 site, 5U 5U Wire Frame Lampshade Maker R+L 1 site per side, 5U each 10U Frontalis R+L 2 sites per side, 5U each 20U Temporalis R+L 2 sites per side, 10U each 40U Occipitalis R+L 2 site per side, 10U each 40U Splenius Capitus R+L 1 site per side, 10U each 20U Trapezius R+L 2 sites per side, 5U each 20U Total Dose 155U Outpt. Medication Reconciliation: Medication Rec per Councilperson Nursing note on Apr@09:02. NO DISCREPANCIES FOUND other than those listed in note. The patient's medication list/medication history to include Local Active VA Prescriptions, Remote Active VA Prescriptions, Non-VA medications, Recently VA Prescriptions (90-180 days), Recently Discontinued VA Prescriptions (90-180 days), and Pending Medication Orders where relevant (e.g., patient is seen by multiple providers in the same day) was compared with CPRS and reviewed with the patient/caregiver and reconciled. Any changes in medications and any medications prescribed by this provider discontinued are documented in this note. Medications not prescribed by this provider will be addressed by pt's PCM or appropriate specialty provider. /nicole/ CHANDU CARRILLO MD PHYSICIAN Signed: 04/20/2024 09:18 [facility]U [facility]RILLO [facility]
--- OUTSIDE RECORDS SUMMARY | 2024-05-05 07:41 | XMS_ITS | Patient Health Record ---
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 Phone AMY GONZALEZ D.O Primary Care Provider Kristine taylorkathGilbert Haro [phone] Allergies Allergen (clinical drug ingredient) Drug/Non Drug [...] Potassium 100 MG Oral for 90 Active Hansen 3 1200 MG 1 capsule Orally Once [...] Problem Status W/U Status Risk Notes Problem [id number] Encounter for screening for malignant neoplasm of colon (Z12.11) Active confirmed Problem History of adenomatous polyp of colon (485480189) History of adenomatous polyp of colon (Z86.010) Active confirmed Problem 09855706 Abdominal pain, epigastric (R10.13) Active confirmed Problem 642893949 Elevated liver function tests (R79.89) Active confirmed Problem 978434572 Diverticulosis (K57.90) Active confirmed Problem 54310872 Oropharyngeal dysphagia (R13.12) Active confirmed Problem 944011080 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) Active confirmed Problem 67946168 Pharyngoesophage al dysphagia (R13.14) Active confirmed Problem Esophageal reflux finding (454769041) Gastroesophageal reflux (K21.9) Active confirmed Problem 182676702 Abdominal pain, generalized (R10.84) Active confirmed Problem 71312401 Upper abdominal pain (R10.10) Active confirmed Problem Diverticulosis of colon (831976699) Diverticulosis of colon (K57.30) Active confirmed Problem 61990506 Chest pain, unspecified type (R07.9) Active confirmed Problem History of gastrointestinal tract bypass (626461516) Hx of Billroth II operation (Z98.0) Active [...] OF [place] [address] [place] [address] [id number] TAJ DE LA ROSA Self - patient is the insured [employer] [address] [place] [phone] [id number] TAJ DE LA ROSA Self - patient [...] 10/2016--had an EGD at that time at [facility]; describes a neg. UGI at [facility] in 09/2017 for abdominal pain CVA's [...] work in regard to any sign of [place]--Dr. Lobato asked me to perform an upper [...] obstruction 08/2013--treated with l aprascopic surgery at [facility] Thumb repair-left Laprascopic Gastric bypass at [facility] 2012- -lost 130# Panniculectomy 2018
--- OUTSIDE RECORDS SUMMARY | 2024-05-05 07:41 | XMS_ITS ---
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 Date/Time Encounter Type Encounter Description Reason Provider Source Jan 08, 2024 09:00 AM [facility] ICD-10-CM F43.12 Post-traumatic stress disorder, chronic MARIALUISA SALCEDO Encounter Template Text not used by [place] Assessments - Encounter Diagnoses This section includes the primary and secondary diagnoses documented for the Encounter. Date/Time Primary/Secondary Diagnosis Diagnosis Name Provider Source Jan 08, 2024 10:38 AM PRIMARY Post-traumatic stress disorder, chronic MARIALUISA SALCEDO [place] [facility] [place] [facility] Plan of Treatment: Future Appointments (+ 6 months) and Future Tests (+/- 45 days) The Plan of Treatment section includes future care activities for the patient from all [place] treatmentfacilities. This section includes future appointments and future orders which are active, pending or scheduled. Future Appointments This section includes appointments that were scheduled to occur 6 months from the date of the Encounter, up to a maximum of 20 appointments. The data comes from all [place] treatment facilities. Appointment Date/Time Appointment Type Appointme nt Facility Name Jan 09, 2024 09:30 AM AMBULATORY - MEDICINE [facility] [place] Jan 14, 2024 07:00 AM [facility]BULATORY - [facility]IATRY [facility] [place] [facility] Jan 20, 2024 08:30 AM AMBULATORY - NEUROLOGY [facility] [place] [facility] Jan 22, 2024 09:00 AM AMBULATORY - PSYCHIATRY [facility] [place] [facility] Jan 27, 2024 01:30 PM AMBULATORY - PSYCHIATRY [facility] [place] [facility] Jan 29, 2024 09:00 AM AMBULATORY - PS[facility]CHIATRY [facility] [place] [facility] Feb 05, 2024 09:00 AM AMBULATORY - PS[facility]CHIATRY [facility] [place] [facility] Feb 10, 2024 07:00 AM AMBULATORY - PS[facility]CHIATRY [facility] [place] [facility] Feb 24, 2024 07:00 AM AMBULATORY - PS[facility]CHIATRY [facility] [place] [facility] Mar 04, 2024 09:00 AM AMBULATORY - PSYCHIATRY [facility] [place] [facility] Mar 11, 2024 09:00 AM AMBULATORY - PSYCHIATRY [facility] [place] [facility] Mar 18, 2024 09:00 AM AMBULATORY - PS[facility]CHIATRY [facility] [place] [facility] Mar 25, 2024 09:00 AM AMBULATORY - PSYCHIATRY [facility] [place] [facility] Mar 30, 2024 07:00 AM AMBULATORY - PSYCHIATRY [facility] [place] [facility] Mar 30, 2024 01:00 PM AMBULATORY - PSYCHIATRY [facility] [place] [facility] Apr 01, 2024 09:00 AM [facility] [place] [facility] Apr 08, 2024 09:00 AM [facility]RY [facility] [place] [facility] Apr 13, 2024 07:00 AM AMB[facility]RY [facility] [place] [facility] Apr 15, 2024 09:00 AM AMBULATORY - PSYCHIATRY [place] [facility] [place] [facility] Apr 20, 2024 09:00 [facility] [place] [facility] Lab Results: +/- 30 days of the encounter This section includes the Chemistry and Hematology Lab Results on record with VA for the patient. Radiology Reports and Pathology Reports are provided separately, in subsequent sections. Lab Results This section contains the Chemistry/Hematology Results that were resulted 30 days before or 30 daysafter the date of the Encounter. Date/Time Source Result Type Result - Unit Interpretation Reference Range Comment Dec 19, 2023 07:55 AM [facility] FOLATE (WROX) Specimen Type: SERUM No comment entered. Ordering Provider: NAV PIERRE Report Released Date/Time: Oct 28, 2023 09:59 AM Reporting Lab: [facility] [address] [address] Performing Lab: [facility] [address] [address] FOLATE (WROX) 9.07 ng/mL >5.2 Dec 19, 2023 07:55 AM [facility] TSH Specimen Type: SERUM No comment entered. Ordering Provider: NAV PIERRE Report Released Date/Time: Oct 28, 2023 09:59 AM Reporting Lab: [facility] [address] [address] Performing Lab: [facility] [address] [address] TSH 1.09 u[IU]/mL 0.35-5.00 Dec 19, 2023 07:55 AM [facility] VITAMIN D (25-OH) Specimen Type: SERUM No comment entered. Ordering Provider: NAV PIERRE Report Released Date/Time: Oct 28, 2023 09:59 AM Reporting Lab: [address] [address] Performing Lab: [address] [address] VITAMIN D (25-OH) 38 ng/mL 20-50 Dec 19, 2023 07:55 AM [facility] VITAMIN B12 Specimen Type: SERUM No comment entered. Ordering Provider: NAV PIERRE Report Released Date/Time: Oct 28, 2023 09:59 AM Reporting Lab: [address] [address] Performing Lab: [address] [address] VITAMIN B12 297 pg/mL 200-900 Dec 19, 2023 07:55 AM [facility] LIPID PANEL FASTING Specimen Type: SERUM No comment entered. Ordering Provider: NAV PIERRE Report Released Date/Time: Dec 16, 2023 09:50 AM Reporting Lab: [address] [address] Performing Lab: [address] [address] CHOLESTEROL 113 mg/dL TRIGLYCERIDE 85 mg/dL 0-150 LDL calculated 50 mg/dL 0-129 CHOL/HDL 2.5 HDL CHOLESTEROL 46 mg/dL 40-60 Dec 19, 2023 07:55 AM [facility] HEMOGLOBIN A1C PANEL Specimen Type: BLOOD Comment: [...] Dec 16, 2023 09:50 AM Reporting Lab: [facility] [address] [address] Performing Lab: [facility] [address] [address] HEMOGLOBIN A1C 5.5 4.0-5.6 Dec 19, 2023 07:55 AM [facility] BASIC METABOLIC PANEL (fasting) Specimen Type: SERUM No comment entered. Ordering Provider: NAV PIERRE Report Released Date/Time: Dec 16, 2023 09:50 AM Reporting Lab: [facility] [address] [address] Performing Lab: [facility] [address] [address] UREA NITROGEN 18 mg/dL 7-25 GLUCOSE 117 [...] 15, 2023 07:00 AM VA-TOBACCO FORMER USER [facility] Tobacco Use History This section includes a history of the smoking, or tobacco-related health factors, that were collected on or before the date of the Encounter. The data comes from the [place] facility where the Encounter took place. Date/Time Smoking Status/Tobacco Use Comment Rodney feliciano Apr 15, 2023 07:00 AM VA-TOBACCO QUIT 15 YRS OR MORE [facility] Apr 24, 2022 07:00 AM VA-TOBACCO FORMER USER [facility] Apr 24, 2022 07:00 AM VA-TOBACCO QUIT 15 YRS OR MORE [facility] [place] [facility] Apr 27, 2021 03:00 PM VA-TOBACCO FORMER USER [facility] [place] [facility] Apr 27, 2021 03:00 PM VA-TOBACCO QUIT 15 YRS OR MORE [facility] [place] [facility] Mar 17, 2020 03:00 PM VA-TOBACCO FORMER USER [facility] [place] [facility] Mar 17, 2020 03:00 PM VA-TOBACCO QUIT 15 YRS OR MORE [facility] [place] [facility] Mar 31, 2019 09:04 AM VA-TOBACCO FORMER USER [facility] [place] [facility] Mar 31, 2019 09:04 AM VA-TOBACCO QUIT 15 YRS OR MORE [place] [facility] [place] [facility] Encounter Notes: All associated encounter notes This section contains the clinical notes associated to the Encounter. Date/Time Encounter Note(s) Provider Source Jan 08, 2024 10:05 AM SOCIAL WORK GROUP COUNSELING NOTE: LOCAL TITLE: SOCIAL WORK GROUP NOTE STANDARD TITLE: SOCIAL WORK GROUP COUNSELING NOTE DATE OF NOTE: JAN 08, 2024@10:05 ENTRY DATE: JAN 08, 2024@10:05:28 AUTHOR: MARIALUISA SALCEDO EXP COSIGNER: URGENCY: STATUS: COMPLETED [employer] Group Date: 01/08/24 Time: 9 AM Number of group members: 14 Surface Miner: Marialuisa Salcedo, [facility] Group began with a introduction that [...] emotions and thoughts. Today's theme was on body and breath sensing. engaged with sales and marketing professional and group members appropriately, participating in the meditation and reflection time. did not endorse SI/HI. Bailey's intention was to feel calm and centered. DIAGNOSES: Persistent mood disorder, unspecified PTSD, chronic Cognitive Disorder (History of) Cerebral Infarction, Unspecified [place] Video Connect (VVC) Standard Documentation VVC Clinician Resources Only: E911 (Emergency Call Relay Center): [phone] National Veterans Crisis Line - 988 then press #1. BETH Suicide Coordinator [phone], Ext. [phone]; Back-up Ext. [phone] [place] Police, CLEMENTESangeeta Del Cid [phone] Introduction: Visit is being conducted by [place] [employer] Connect. Bailey identified with 2 identifiers: [X] Full Name [X] Date of [ ] VA ID Card Emergency Plan: Bailey confirmed and/or provided the following information in case of emergency or technology failure. PATIENT PHONE - PHONE NUMBER [CELLULAR] - Is patient phone number correct, if not, enter below: Bailey's phone number: TAJ SAVANNA ESTRELLA [address], [place], [address] 's present location and address for appointment: his home Bailey's emergency contact name and phone number: E-Cont.: JUVENCIO DE LA ROSA Relation Type: UNRELATED FRIEND/OTHER Relation Note: OTHERS [address] [place] [address] [facility] reported that location is private and safe: Yes Informed Consent: Bailey informed of the risks and benefits of Telehealth video care. has the right to refuse video services. If refuses video visit, a ydhj-wv-mgrn visit will be scheduled. verbalized consent for this video visit: Yes Bailey provided consent for any other persons present for visit: Yes If yes, who and relationship to patient:group Secure visit: Visit was locked for security and privacy:Yes /nicole/ REBECA CARABALLO Power Operator Signed: 01/08/2024 10:50 MARIALUISA SALCEDO [facility]
--- OUTSIDE RECORDS SUMMARY | 2024-05-05 07:41 | XMS_ITS | Encounter Summary ---
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 Date/Time Encounter Type Encounter Description Reason Provider Source May 16, 2023 11:30 AM PSYCL/NRPSYC TST PHY/QHP EA [facility] - IND ICD-10-CM R41.9 Unsp symptoms and signs w cognitive functions and awareness [facility] Encounter Template Text not used by [place] Assessments - Encounter Diagnoses This section includes the primary and secondary diagnoses documented for the Encounter. Date/Time Primary/Secondary Diagnosis Diagnosis Name Provider Source May 20, 2023 08:07 AM PRIMARY Unsp symptoms and signs w cognitive functions and awareness FEARING,FERN Williamson [facility] [place] [facility] May 20, 2023 08:07 AM SECONDARY Persistent mood [affective] disorder, unspecified FEARING,FERN Williamson [facility] [place] [facility] May 20, 2023 08:07 AM SECONDARY Post-traumatic stress disorder, chronic FEARING,FERN Williamson [facility] [place] [facility] Plan of Treatment: Future Appointments (+ 6 months) and Future Tests (+/- 45 days) The Plan of Treatment section includes future care activities for the patient from all [place] treatmentfacarteret health careities. This section includes future appointments and future orders which are active, pending or scheduled. Future Appointments This section includes appointments that were scheduled to occur 6 months from the date of the Encounter, up to a maximum of 20 appointments. The data comes from all [place] treatment facilities. Appointment Date/Time Appointment Type Appointme nt Facility Name May 23, 2023 01:30 PM AMBULATORY - PS[facility]CHIATRY [facility] [place] [facility] May 27, 2023 07:00 AM AMBULATORY - PSYCHIATRY [facility] [place] [facility] Jun 10, 2023 07:00 AM AMBULATORY - PSYCHIATRY [facility] [place] [facility] Jun 13, 2023 10:30 AM AMBULATORY - REHAB MEDICIN E [facility] [place] [facility] July 08, 2023 07:00 AM AMBULATORY - PSYCHIATRY [facility] [place] [facility] Jul 22, 2023 07:00 AM AMBULATORY - PSYCHIATRY [facility] [place] [facility] Jul 22, 2023 08:00 AM AMBULATORY - NEUROLOGY [facility] [place] [facility] Jul 25, 2023 01:30 PM AMBULATORY - PSYCHIATRY [facility] [place] [facility] Jul 29, 2023 07:00 AM AMBULATORY - PSYCHIATRY [facility] [place] [facility] Jul 29, 2023 08:30 AM AMBULATORY - MEDICINE PA [facility] [place] [facility] Aug 21, 2023 10:00 AM [facility] Sep 02, 2023 07:00 AM AMBULATORY - PSYCHIATRY [facility] [place] [facility] Sep 09, 2023 05:00 PM AMBULATORY - PSYCHIATRY [facility] [place] [facility] Sep 11, 2023 09:00 AM AMBULATORY - PSYCHIATRY [facility] [place] [facility] Sep 19, 2023 01:30 PM AMBULATORY - PSYCHIATRY [facility] [place] [facility] Sep 25, 2023 09:00 AM AMBULATORY - PSYCHIATRY [facility] [place] [facility] Sep 30, 2023 07:00 AM AMBULATORY - PSYCHIATRY [facility] [place] [facility] Oct 02, 2023 09:00 AM AMBULATORY - PSYCHIATRY [facility] [place] [facility] Oct 09, 2023 09:00 AM AMBULATORY - PSYCHIATRY [facility] [place] [facility] Oct 16, 2023 09:00 AM AMBULATORY - PSYCHIATRY [place] [facility] [place] [facility] Social History: Smoking Status (Most current) and Tobacco Use (All prior to encounter date) This section includes the most current, and the historical, smoking and tobacco- related health factors from the [place] facility where the Encounter took place. Current Smoking Status This section includes the most current smoking, or tobacco-related health factor, from the [place] facility where the Encounter took place. Date/Time Current Smoking Status Comment Facil ity Apr 15, 2023 07:00 AM [facility] Tobacco Use History This section includes a history of the smoking, or tobacco-related health factors, that were collected on or before the date of the Encounter. The data comes from the [place] facility where the Encounter took place. Date/Time Smoking Status/Tobacco Use Comment F acility Apr 15, 2023 07:00 AM VA-TOBACCO QUIT 15 YRS OR MORE [facility] [place] [facility] Apr 24, 2022 07:00 AM VA-TOBACCO FORMER USER [facility] [place] [facility] Apr 24, 2022 07:00 AM VA-TOBACCO QUIT 15 YRS OR MORE [facility] [place] [facility] Apr 27, 2021 03:00 PM VA-TOBACCO FORMER USER [facility] [place] [facility] Apr 27, 2021 03:00 PM VA-TOBACCO QUIT 15 YRS OR MORE [facility] [place] [facility] Mar 17, 2020 03:00 PM VA-TOBACCO FORMER USER [facility] [place] [facility] Mar 17, 2020 03:00 PM VA-TOBACCO QUIT 15 YRS OR MORE [facility] [place] [facility] Mar 31, 2019 09:04 AM VA-TOBACCO FORMER USER [facility] [place] [facility] Mar 31, 2019 09:04 AM VA-TOBACCO QUIT 15 YRS OR MORE [facility] [place] [facility] Encounter Notes: All associated encounter notes This section contains the clinical notes associated to the Encounter. Date/Time Encounter Note(s) Provider Source May 16, 2023 02:48 PM MENTAL HEALTH NOTE: LOCAL TITLE: NEUROPSYCH TESTING STANDARD TITLE: MENTAL HEALTH NOTE DATE OF NOTE: MAY 16, 2023@14:48 ENTRY DATE: MAY 16, 2023@14:48:54 AUTHOR: HUSSAIN URIAS COSIGNER: WILFRED DANIELSON URGENCY: STATUS: COMPLETED NEUROPSYCH TESTING Has ADDENDA This assessment was administered by Dr. Hussain Urias, and supervised by licensed Clinical Psychologist Dr. Wilfred Danielson. The provider met with the [place] to go over assessment findings and recommendations. The was provided with opportunities to ask questions. SI/HI were not ellicted in todays session and there were no indications of any increases in risk. /nicole/ HUSSAIN URIAS, PHD [facility] Post-Doctoral Psychology Trainee Signed: 05/16/2023 14:49 /nicole/ WILFRED DANIELSON,PHD PSYCHOLOGIST Cosigned: 05/20/2023 08:07 05/20/2023 ADDENDUM STATUS: COMPLETED // BILLING SUMMARY // Type of Service: NEUROPSYCHOLOGICAL EVALUATION Date of Service (all codes to be submitted using the same/final date of service): 05/16/2023 JUST THE CODES: -23777 (1 UNIT) -29651 (1 UNIT) -20193 (3 UNITS) -14166 (1 UNIT) -13293 (6 UNITS) // Time Documentation // Neurobehavioral Status Exam: TOTAL TIME = 1 HOUR (89516--5 UNIT) >> 9:00-10:00 (60 minutes) on 04/22/2023 Professional Neuropsychological Testing Evaluation Services: TOTAL TIME= HOURS (16372--8 UNIT, 28771--9 UNITS) A) Intra-session clinical decision-making *1. Referral review and test selection >> 8:30-9:00 (30 minutes) on 04/22/2023 *2. Patient symptom monitoring >> none *3. Patient limitation management >> none *4. Patient behavior management >> none B) Record review/integration/report generation >> 60 minutes (1 hour) on 04/24/2023 >> 120 minutes (2 hour) on 04/26/2023 C) [X] In-person uujn-wu-vsce interpretive feedback OR [ ] Telemental health rivq-ph-jmjc interpretive feedback >> 30 Minutes on 05/16/2023 Test Administration and Scoring Services: TOTAL TIME= 210 MINUTES (44981--5 UNIT, 26286--9 UNITS) >> 09:30-12:00 (2.5 hours) on 04/22/2023 >> scoring 60 minutes (1 hour)04/22/2023 /nicole/ WILFRED DANIELSON,PHD PSYCHOLOGIST Signed: 05/20/2023 08:08 HUSSAIN URIAS TRN [facility]
--- OUTSIDE RECORDS SUMMARY | 2024-05-05 07:41 | XMS_ITS | Encounter Summary ---
Author Name [facility] [facility] [place] [facility] [place] Address [address] [place] [address] Care Team Providers Care Security System Analyst Name Role Phone JOSE MANUEL PITT Primary [...] Burgess's Name Patient's Relationship to Policy Burgess [facility] MEDICARE SUPPLEMEN BETY MEDIC ARE SUPPL EMENT A Feb 18, 2022 SUPP1 [id number] GINA [address] ROSA PATIENT [facility] MED PREFER/SEN IOR CARE MEDICARE SUPPLEMEN BETY MEDIC ARE SUPPL EMENT A Feb 18, 2021 SUPP1 [id number] GINA DE LA ROSA PATIENT Selected Encounter This section includes the information on record at [place] for the Encounter. Date/Time Encounter Type Encounter Description Reason Provider Source Feb 10, 2024 07:00 AM PSYTX W PT 45 [facility]UTES [facility] - IND ICD-10-CM F34.9 Persistent mood [affective] disorder, unspecified MOISES PADILLA Encounter Template Text not used by [facility] Assessments - Encounter Diagnoses This section includes the primary and secondary diagnoses documented for the Encounter. Date/Time Primary/Secondary Diagnosis Diagnosis Name Provider Source Feb 10, 2024 07:53 AM PRIMARY Persistent mood [affective] disorder, unspecified MOISES PADILLA [facility] Feb 10, 2024 07:53 AM SECONDARY Cerebral infarction, unspecified MOISES PADILLA [facility] [place] Feb 10, 2024 07:53 AM SECONDARY Post-traumatic stress disorder, chronic MOISES PADILLA [facility] [place] Feb 10, 2024 07:53 AM SECONDARY Unsp symptoms and signs w cognitive functions and awareness MOISES PADILLA [facility] [place] Plan of Treatment: Future Appointments (+ 6 months) and Future Tests (+/- 45 days) The Plan of Treatment section includes future care activities for the patient from all [place] treatmentfacilities. This section includes future appointments and future orders which are active, pending or scheduled. Future Appointments This section includes appointments that were scheduled to occur 6 months from the date of the Encounter, up to a maximum of 20 appointments. The data comes from all [place] treatment facilities. Appointment Date/Time Appointment Type Appointme nt Facility Name Feb 24, 2024 07:00 AM AMBULATORY - [facility]IATRY [facility] [place] Mar 04, 2024 09:00 AM AMBULATORY [facility]AT[facility] [place] Mar 11, 2024 09:00 AM AMBULATORY - [facility]IATRY [facility] [place] Mar 18, 2024 09:00 AM AMBULATORY - [facility]IATRY [facility] [place] Mar 25, 2024 09:00 AM AMBULATORY - [facility]IATRY [facility] [place] Mar 30, 2024 07:00 AM AMBULATORY - [facility]IATRY [facility] [place] Mar 30, 2024 01:00 PM AMBULATORY - PS[facility]IATRY [facility] [place] Apr 01, 2024 09:00 AM AMBULATORY [facility]IATRY [facility] [place] Apr 08, 2024 09:00 AM AMBUL[facility]ORY - [facility]IATRY [facility] [place] Apr 13, 2024 07:00 AM AMBUL[facility]ORY - [facility]IATRY [facility] [place] [facility] Apr 15, 2024 09:00 AM AMBUL[facility]ORY [facility]IATRY [facility] [place] Apr 20, 2024 09:00 AM AMBULATORY - NEUROLOGY [facility] [place] [facility] Apr 22, 2024 09:00 AM AMBULATORY - [facility]CHIATRY [facility] [place] [facility] Apr 29, 2024 09:00 AM AMBULATORY - PS[facility]CHIATRY [facility] [place] [facility] May 04, 2024 07:00 AM AMBULATORY - [facility]CHIATRY [facility] [place] [facility] May 04, 2024 10:15 AM AMBULATORY - MEDICINE [facility] [place] [facility] May 06, 2024 09:00 AM AMBULATORY - PS[facility]CHIATRY [facility] [place] [facility] May 13, 2024 09:00 AM AMBULATORY - [facility]CHIATRY [facility] [place] [facility] May 14, 2024 09:30 AM [facility] May 20, 2024 09:00 AM [facility]BUL[facility] - [facility]CHIATRY [facility] [place] [facility] Social History: Smoking Status (Most current) and Tobacco Use (All prior to encounter date) This section includes the most current, and the historical, smoking and tobacco- related health factors from the [facility] facility where the Encounter took place. Current Smoking Status This section includes the most current smoking, or tobacco-related health factor, from the [facility] facility where the Encounter took place. Date/Time Current Smoking Status Comment Facil ity Apr 15, 2023 07:00 AM VA-TOBACCO FORMER USER [place] [facility] [place] [facility] Tobacco Use History This section includes a history of the smoking, or tobacco-related health factors, that were collected on or before the date of the Encounter. The data comes from the [place] facility where the Encounter took place. Date/Time Smoking Status/Tobacco Use Comment F acility Apr 15, 2023 07:00 AM VA-TOBACCO QUIT 15 YRS OR MORE [facility] [place] Apr 24, 2022 07:00 AM VA-TOBACCO FORMER USER [facility] [place] [facility] Apr 24, 2022 07:00 AM VA-TOBACCO QUIT 15 YRS OR MORE [facility] [place] [facility] Apr 27, 2021 03:00 PM VA-TOBACCO FORMER USER [facility] [place] [facility] Apr 27, 2021 03:00 PM VA-TOBACCO QUIT 15 YRS OR MORE [facility] [place] [facility] Mar 17, 2020 03:00 PM VA-TOBACCO FORMER USER [facility] [place] [facility] Mar 17, 2020 03:00 PM VA-TOBACCO QUIT 15 YRS OR MORE [facility] [place] [facility] Mar 31, 2019 09:04 AM VA-TOBACCO FORMER USER [facility] [place] [facility] Mar 31, 2019 09:04 AM VA-TOBACCO QUIT 15 YRS OR MORE [place] [facility] [place] [facility] Encounter Notes: All associated encounter notes This section contains the clinical notes associated to the Encounter. Date/Time Encounter Note(s) Provider Source Feb 10, 2024 06:41 AM PSYCHOLOGY NOTE: LOCAL TITLE: PSYCHOLOGY NOTE STANDARD TITLE: PSYCHOLOGY NOTE DATE OF NOTE: FEB 10, 2024@06:41 ENTRY DATE: FEB 10, 2024@06:41:14 AUTHOR: MOISES PADILLA COSIGNER: URGENCY: STATUS: COMPLETED was identified by Visual recognition and patient name. VISIT DURATION 45 minutes DIAGNOSES: Persistent mood disorder, unspecified PTSD, chronic Cognitive Disorder (History of) Cerebral Infarction, Unspecified PRESENTING PROBLEMS: presented on time and we resumed treatment as usual, reviewing stress and mood management as well as recent psychosocial stressors. SESSION FOCUS: shared that his upbeat mood from our last session has since reduced and he has been feeling more depressed. He declined significant depressed symptoms as he had prior to the medication addition, but did endorse low mood, anhedonia, lethargy, and amotivation. He explained that they haven't gotten into the [place] spirit this year like they have in years past. To add to the low mood and stress, explained that his Carlyn was recently informed that she has several unknown lumps near in lymph nodes. This was discovered when exploring a different issue and since then she is been worried that it may be cancer. [facility] explained that she has gotten several biopsies and they must wait through the holidays before they will get the results. We processed his feelings of anger and anxiety, and his stance of trying to tell Carlyn to wait until she gets the results before saying cancer . Because she has a strong family history of cancer, she and her sisters have been saying that word all the time which he has described as very distressing to hear. We discussed some activities that they could do to both help them get into the [place] spirit, and help distract them from worrying about the unknown medical facts such as buying a gift for each other for Henri. liked the idea and may ask his daughter to take him to the store to find something special for her. ASSESSMENT: BRIEF ASSESSMENT OF MENTAL STATUS: 1. Appearance (grooming, attire, apparent age) within normal limits: Yes 2. Thought content was organized and goal directed: Yes 3. Speech was coherent and unimpaired: Yes 4. Affect was appropriate and unremarkable: Full 5. Demeanor was calm, with no signs of agitation or restlessness: Yes 6. Sleep was largely unimpaired and restful: Yes 7. No evidence of psychosis (hallucinations or delusions): Yes 8. Mood was normal: dysphoric Other Observations: RISK ASSESSMENT: Denies current suicidal ideation. I would never kill myself Denies current homicidal ideation RTCs: F2F ssns e/o/w. Re-assess need for tx. in April. /nicole/ Moises Padilla PsyD Staff Psychologist Signed: 02/10/2024 07:54 MOISES PADILLA [facility]
--- OUTSIDE RECORDS SUMMARY | 2024-05-05 07:41 | XMS_ITS | Encounter Summary ---
Author Name [facility] [place] Address [address] [place] [address] Care Team Providers Care Pull Up Hand Name Role Phone JOSE MANUEL PITT Primary [...] Burgess's Name Patient's Relationship to Policy Burgess [facility] HEALTH PLAN MEDICARE SUPPLEMEN BETY MEDIC ARE SUPPL EMENT A Feb 18, 2022 SUPP1 [id number] GINA CISNEROS PATIENT [facility] MED PREFER/SEN IOR CARE MEDICARE SUPPLEMEN BETY MEDIC ARE SUPPL EMENT A Feb 18, 2021 SUPP1 [id number] [phone] GINA CISNEROS PATIENT Selected Encounter This section includes the information on record at [place] for the Encounter. Date/Time Encounter Type Encounter Description Reason Pro vider Source Jun 12, 2023 02:02 PM Outpatient Encounter ADMIN PAT ACTIVTIES (MASNONCT) IHE Encounter Template Text not used by [place] Plan of Treatment: Future Appointments (+ 6 months) and Future Tests (+/- 45 days) The Plan of Treatment section includes future care activities for the [facility] [place] [facility] This section includes future appointments and future orders which are active, pending or scheduled. Future Appointments This section includes appointments that were scheduled to occur 6 months from the date of the Encounter, up to a maximum of 20 appointments. The data comes from all [place] treatment facilities. Appointment Date/Time Appointment Type Appointme nt Facility Name Jun 13, 2023 10:30 AM AMBULATORY - [facility]AB [facility]ICIN [facility] [place] [facility] July 08, 2023 07:00 AM AMBULATORY - PS[facility]CHIATRY [facility] [place] [facility] Jul 22, 2023 07:00 AM AMBULATORY - [facility]CHIATRY [facility] [place] [facility] Jul 22, 2023 08:00 AM AMBULATORY - NEUROLOGY [facility] [place] [facility] Jul 25, 2023 01:30 PM AMBULATORY - PS[facility]CHIATRY [facility] [place] [facility] Jul 29, 2023 07:00 AM AMBULATORY - PS[facility]CHIATRY [facility] [place] [facility] Jul 29, 2023 08:30 AM AMBULATORY - MEDICINE [facility] [place] [facility] Aug 21, 2023 10:00 AM AM[facility]ULATORY - MEDICINE [facility] Sep 02, 2023 07:00 AM AMBULATORY - PSYCHIATRY [facility] [place] [facility] Sep 09, 2023 05:00 PM AMBULATORY - PSYCHIATRY [facility] [place] [facility] Sep 11, 2023 09:00 AM AMBULATORY - PS[facility]CHIATRY [facility] [place] [facility] Sep 19, 2023 01:30 PM AMBULATORY - PSYCHIATRY [facility] [place] [facility] Sep 25, 2023 09:00 AM AMBULATORY - PSYCHIATRY [facility] [place] [facility] Sep 30, 2023 07:00 AM AMBULATORY - PSYCHIATRY [facility] [place] [facility] Oct 02, 2023 09:00 AM AMBULATORY - PS[facility]CHIATRY [facility] [place] [facility] Oct 09, 2023 09:00 AM AMBULATORY - PSYCHIATRY [facility] [place] [facility] Oct 16, 2023 09:00 AM AMBULATORY - PSYCHIATRY [facility] [place] [facility] Oct 23, 2023 09:00 AM AMBULATORY - PSYCHIATRY [facility] [place] [facility] Oct 28, 2023 07:00 AM AM[facility]ORY - [place]ATRY [place] [facility] [place] [facility] Oct 28, 2023 08:00 AM AM[place]ULATORY [place]OLOGY [place] [facility] [place] [facility] Social History: Smoking Status (Most current) and Tobacco Use (All prior to encounter date) This section includes the most current, and the historical, smoking and tobacco- related health factors from the [place] facility where the Encounter took place. Current Smoking Status This section includes the most current smoking, or tobacco-related health factor, from the [place] facility where the Encounter took place. Date/Time Current Smoking Status Comment Facil ity Apr 15, 2023 07:00 AM VA-TOBACCO FORMER USER [place] [facility] [place] [facility] Tobacco Use History This section includes a history of the smoking, or tobacco-related health factors, that were collected on or before the date of the Encounter. The data comes from the [place] facility where the Encounter took place. Date/Time Smoking Status/Tobacco Use Comment F acility Apr 15, 2023 07:00 AM VA-TOBACCO QUIT 15 YRS OR MORE [place] [facility] [place] [facility] Apr 24, 2022 07:00 AM VA-TOBACCO FORMER USER [facility] [place] [facility] Apr 24, 2022 07:00 AM VA-TOBACCO QUIT 15 YRS OR MORE [facility] [place] [facility] Apr 27, 2021 03:00 PM VA-TOBACCO FORMER USER [facility] [place] [facility] Apr 27, 2021 03:00 PM VA-TOBACCO QUIT 15 YRS OR MORE [facility] [place] [facility] Mar 17, 2020 03:00 PM VA-TOBACCO FORMER USER [facility] [place] [facility] Mar 17, 2020 03:00 PM VA-TOBACCO QUIT 15 YRS OR MORE [facility] [place] [facility] Mar 31, 2019 09:04 AM VA-TOBACCO FORMER USER [facility] [place] [facility] Mar 31, 2019 09:04 AM VA-TOBACCO QUIT 15 YRS OR MORE [place] [facility] [place] [facility] Encounter Notes: All associated encounter notes This section contains the clinical notes associated to the Encounter. Date/Time Encounter Note(s) Provider Source Jun 12, 2023 02:02 PM PHARMACY OUTPATIENT MEDICATION MGT NOTE: LOCAL TITLE: [facility] PRESCRIPTION NOTE STANDARD TITLE: PHARMACY OUTPATIENT MEDICATION MGT NOTE DATE OF NOTE: JUN 12, 2023@14:02 ENTRY DATE: JUN 12, 2023@14:02:55 AUTHOR: DELFIN FLORES COSIGNER: URGENCY: STATUS: COMPLETED Patient presented to [place] pharmacy requesting the below medication/prescription be filled; or the below medication was faxed to [place] pharmacy requesting to be filled for JACOB CISNEROS. THE BELOW MEDICATION(S) ARE NON-FORMULARY == NON-VA PRESCRIPTION DETAILS == Rx written:06/10/23 Medication:MIRABEGRON 25MG Dose/Directions:TAKE 1 TABLET DAILY Quantity:30 Refills:2 Prescriber:DOMINGA DUPREE Practice site:[facility] MARIA FERNANDA: NPI (if available):[id number] == ELIGIBILITY TO FILL NON-VA RX: == [facility] Consult: Yes Type of Service Consult:UROLOGY Medical history relevant to request: == ACTION TAKEN/STATUS OF NON-VA RX: == [ ] Initiate request for Non-formulary or Prior Authorization medication ( ) Contacted provider's office to consider a formulary therapeutic alternative ( ) Contacted provider's office for additional necessary information to review PA & N/F ( ) Requested PA & NF to be reviewed by Clinical Pharmacist Specialist ( ) Medication approved and processed ( X) Medication does not meet criteria and therapeutic alternative suggested FAXED TO [facility] OFFICE RE: Jacob Cisneros (1955) Per [place] formulary Mirabegron may be approved if the following requirements are met - Documented 12-week trial with 2 formulary alternatives: oxybutynin,solfenacin, tolterodine, trospium (IR) -Documented history of mental status changed with anticholinergic medications -Diagnosis of Alzheimer's disease or other dementia or cognitive impairment, gastric retention, xerostomia, uncontrolled narrow-angle glaucoma or other condition for which an anticholinergic drug is contraindicated or could be harmful Per VA dispensing history Aury Cisneros has not trialed any formulary alternatives. This request has been denied. Time Spent:15 min /nicole/ DELFIN FLORES [facility] CLINICAL PHARMACIST Signed: 06/12/2023 14:08 DELFIN FLORES [place] [facility]
--- OUTSIDE RECORDS SUMMARY | 2024-05-05 07:42 | XMS_ITS | Encounter Summary ---
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 Date/Time Encounter Type Encounter Description Reason Provider Source Dec 18, 2023 09:00 AM [facility] ICD-10-CM F34.9 Persistent mood [affective] disorder, unspecified MARIALUISA SALCEDO Encounter Template Text not used by [place] Assessments - Encounter Diagnoses This section includes the primary and secondary diagnoses documented for the Encounter. Date/Time Primary/Secondary Diagnosis Diagnosis Name Provider Source Dec 18, 2023 10:25 AM PRIMARY Persistent mood [affective] disorder, unspecified MARIALUISA SALCEDO [facility] Dec 18, 2023 10:25 AM SECONDARY Post-traumatic stress disorder, chronic MARIALUISA SALCEDO [facility] Plan of Treatment: Future Appointments (+ 6 months) and Future Tests (+/- 45 days) The Plan of Treatment section includes future care activities for the patient from all [place] treatmentfacilities. This section includes future appointments and future orders which are active, pending or scheduled. Future Appointments This section includes appointments that were scheduled to occur 6 months from the date of the Encounter, up to a maximum of 20 appointments. The data comes from all [place] treatment facilities. Appointment Date/Time Appointment Type Appointme nt Facility Name Dec 19, 2023 07:30 AM AMBULATORY - MEDICINE [facility] Dec 23, 2023 07:00 AM [facility]BUL[facility] Dec 25, 2023 09:00 AM AMBULATORY - PS[facility]IATRY [facility] Jan 01, 2024 09:00 AM AMBULATORY - PS[facility]IATRY [facility] Jan 08, 2024 09:00 AM AMBULATORY - PS[facility]ATRY [facility] Jan 09, 2024 09:30 AM AMBULATORY - MEDICINE [facility] Jan 14, 2024 07:00 AM AMBULATORY - PS[facility]IATRY [facility] Jan 20, 2024 08:30 AM AMBULATORY - NEUROLOGY [facility] Jan 22, 2024 09:00 AM AMBULATORY - PS[facility]CHIATRY [facility] Jan 27, 2024 01:30 PM AMBULATORY - PSYCHIATRY [facility] Jan 29, 2024 09:00 AM AMBULATORY - PSYCHIATRY [facility] Feb 05, 2024 09:00 AM AMBULATORY - PSYCHIATRY [facility] Feb 10, 2024 07:00 AM AMBULATORY - PS[facility]IATRY [facility] Feb 24, 2024 07:00 AM AMBULATORY - PSYCHIATRY [facility] Mar 04, 2024 09:00 AM AMBULATORY - PSYCHIATRY [facility] Mar 11, 2024 09:00 AM AMBULATORY - PS[facility]CHIATRY [facility] Mar 18, 2024 09:00 AM [facility]UL[facility] Mar 25, 2024 09:00 AM AMBULATORY - PSYCHIATRY [facility] Mar 30, 2024 07:00 AM AMBULATORY - PSYCHIATRY [facility] Mar 30, 2024 01:00 PM [facility] Lab Results: +/- 30 [...] Range Comment Dec 19, 2023 07:55 AM [facility] FOLATE (WROX) Specimen Type: SERUM No comment entered. Ordering Provider: NAV PIERRE Report Released Date/Time: Oct 28, 2023 09:59 AM Reporting Lab[facility] [address] [facility] [address] Performing Lab: [facility] [address] [facility] [address] FOLATE (WROX) 9.07 ng/mL >5.2 Dec 19, 2023 07:55 AM [facility] TSH Specimen Type: SERUM No comment entered. Ordering Provider: NAV PIERRE Report Released Date/Time: Oct 28, 2023 09:59 AM Reporting Lab[facility] [address] [facility] [facility] [address] Performing Lab: [facility] [address] [facility] [address] TSH 1.09 u[IU]/mL 0.35-5.00 Dec 19, 2023 07:55 AM [facility] VITAMIN D (25-OH) Specimen Type: SERUM No comment entered. Ordering Provider: NAV PIERRE Report Released Date/Time: Oct 28, 2023 09:59 AM Reporting Lab: [facility] [address] [facility] [address] Performing Lab: [address] [address] VITAMIN D (25-OH) 38 ng/mL 20-50 Dec 19, 2023 07:55 AM [facility] VITAMIN B12 Specimen Type: SERUM No comment entered. Ordering Provider: NAV PIERRE Report Released Date/Time: Oct 28, 2023 09:59 AM Reporting Lab: [facility] [address] [facility] [address] Performing Lab: [address] [address] VITAMIN B12 297 pg/mL 200-900 Dec 19, 2023 07:55 AM [facility] HEMOGLOBIN A1C PANEL Specimen Type: BLOOD [...] Dec 16, 2023 09:50 AM Reporting Lab: [address] [address] Performing Lab: [address] [address] HEMOGLOBIN A1C 5.5 4.0-5.6 Dec 19, 2023 07:55 AM [facility] LIPID PANEL FASTING Specimen Type: SERUM No comment entered. Ordering Provider: NAV PIERRE Report Released Date/Time: Dec 16, 2023 09:50 AM Reporting Lab: [facility] [address] [facility] [address] Performing Lab: [facility] [address] [facility] [address] CHOLESTEROL 113 mg/dL TRIGLYCERIDE 85 mg/dL 0-150 LDL calculated 50 mg/dL 0-129 CHOL/HDL 2.5 HDL CHOLESTEROL 46 mg/dL 40-60 Dec 19, 2023 07:55 AM [facility] BASIC METABOLIC PANEL (fasting) Specimen Type: SERUM No comment entered. Ordering Provider: NAV PIERRE Report Released Date/Time: Dec 16, 2023 09:50 AM Reporting Lab: [facility] [address] [facility] [address] Performing Lab: [address] [address] UREA NITROGEN 18 mg/dL 7-25 GLUCOSE 117 [...] and tobacco- related health factors from the [place] facility where the Encounter took place. Current Smoking Status This section includes the most current smoking, or tobacco-related health factor, from the [place] facility where the Encounter took place. Date/Time Current Smoking Status Comment Nurys ity Apr 15, 2023 07:00 AM VA-TOBACCO FORMER USER [facility] Tobacco Use History This section includes a history of the smoking, or tobacco-related health factors, that were collected on or before the date of the Encounter. The data comes from the [place] facility where the Encounter took place. Date/Time Smoking Status/Tobacco Use Comment F acility Apr 15, 2023 07:00 AM [place]-TOBACCO QUIT 15 YRS OR MORE [facility] Apr 24, 2022 07:00 AM VA-TOBACCO FORMER USER [facility] Apr 24, 2022 07:00 AM VA-TOBACCO QUIT 15 YRS OR MORE [facility] Apr 27, 2021 03:00 PM VA-TOBACCO FORMER USER [facility] Apr 27, 2021 03:00 PM VA-TOBACCO QUIT 15 YRS OR MORE [facility] Mar 17, 2020 03:00 PM VA-TOBACCO FORMER USER [facility] Mar 17, 2020 03:00 PM VA-TOBACCO QUIT 15 YRS OR MORE [facility] Mar 31, 2019 09:04 AM VA-TOBACCO FORMER USER [facility] Mar 31, 2019 09:04 AM VA-TOBACCO QUIT 15 YRS OR MORE [facility] Encounter Notes: All associated encounter notes This section contains the clinical notes associated to the Encounter. Date/Time Encounter Note(s) Provider Source Dec 18, 2023 10:14 AM SOCIAL WORK GROUP COUNSELING NOTE: LOCAL TITLE: SOCIAL WORK GROUP NOTE STANDARD TITLE: SOCIAL WORK GROUP COUNSELING NOTE DATE OF NOTE: DEC 18, 2023@10:14 ENTRY DATE: DEC 18, 2023@10:14:15 AUTHOR: MARIALUISA SALCEDO COSIGNER: URGENCY: STATUS: COMPLETED iRest Group Date: 12/18/23 Time: 9 AM Number of group members: 12 Care Transition Manager: Marialuisa Salcedo, [facility] Group began with a introduction [...] thoughts. Today's theme was on integration of iRest into daily life. engaged with project facilitator and group members appropriately, participating in the meditation and reflection time. [place] did not endorse SI/HI. [place]'s intention was to reduce pain and anxiety. DIAGNOSES: Persistent mood disorder, unspecified PTSD, chronic Cognitive Disorder (History of) Cerebral Infarction, Unspecified [facility] ([facility]VC) Standard Documentation [facility] Clinician Resources Only: E911 (Emergency Call Relay Center): [phone] National [facility] Crisis Line - 988 then press #1. [facility] Suicide Coordinator [phone], Ext. [phone]; Back-up Ext. [phone] [place] Police, BETH, Sangeeta [phone] Introduction: Visit is being conducted by [place] [employer]. [place] identified with 2 identifiers: [X] Full Name [X] Date of [ ] VA ID Card Emergency Plan: [place] confirmed and/or provided the following information in case of emergency or technology failure. PATIENT PHONE - PHONE NUMBER [CELLULAR] - Is patient phone number correct, if not, enter below: [place]'s phone number: TAJ DE LA ROSA [address], [place], [address] 's present location and address for appointment: his home 's emergency contact name and phone number: E-Cont.: JUVENCIO DE LA ROSA Relation Type: UNRELATED FRIEND/OTHER Relation Note: OTHERS [address] [place] [address] [facility] [place] reported that location is private and safe: Yes Informed Consent: informed of the risks and benefits of Telehealth video care. [place] has the right to refuse video services. If refuses video visit, a [id number] visit will be scheduled. [place] verbalized consent for this video visit: Yes provided consent for any other persons present for visit: Yes If yes, who and relationship to patient:group Secure visit: Visit was locked for security and privacy:Yes /nicole/ REBECA CARABALLO Electrocardiogram Technician Signed: 12/18/2023 10:29 MARIALUISA SALCEDO [place] [facility]
--- OUTSIDE RECORDS SUMMARY | 2024-05-05 07:42 | XMS_ITS | Continuity of Care Document ---
Author Name [facility] Organization [facility] Care Team Providers Care Heel Gouger Name Role Phone [facility] Unavailable Unavailable Problems Combined list of problems from Department of Defense and Veterans Affairs facilities. It does not include entries that were removed or entered in error. Problem Status Onset Date Problem Type Date of Resolution Comments Source Chronic renal disease Active Condition Apr 23, 2019 Entered By: KIRK COTTRELL Comment: Mild CKD and minimal proteinuria due to DM and obesity [facility] Cognitive disorder Active Condition [facility] Conversion disorder Active Condition Apr 19, 2019 Entered By: KIRK COTTRELL Comment: per neurology notes 12/29/2018 - [facility] DM - Diabetes mellitus Active Condition [facility] Gastro-esophageal reflux Active Condition Apr 19, 2019 Entered By: KIRK COTTRELL Comment: NON [facility] records 12/03/2018 - [facility] SAINI [facility] Hemiparesis Active Condition [facility] History of lacunar cerebrovascular accident Active Condition Apr 19, 2019 Entered By: KIRK COTTRELL Comment: NON [facility] records 12/03/2018 - DR SAINIApr 19, 2019 Entered By: KIRK COTTRELL Comment: per pt report - neurology does not support dx [facility] History of surgery Active Condition Apr 19, 2019 Entered By: KIRK COTTRELL Comment: 2005 right cardaic stentApr 19, 2019 Entered By: KIRK COTTRELL Comment: Neuro mplantApr 19, 2019 Entered By: KIRK COTTRELL Comment: gastric bypassApr 19, 2019 Entered By: KIRK COTTRELL Comment: left thum replacement ( left and right great toe amputation , left 2nd toe amp [facility] Hypertension Active Condition Apr 19, 2019 Entered By: KIRK COTTRELL Comment: NON [facility] records 12/03/2018 - [facility] SAINI [facility] Hypoglycaemia Active Condition [facility] Migraine Active Condition [facility] Mood disorder Active Condition [facility] Polyneuropathy Active Condition [facility] Posttraumatic stress disorder Active Condition [facility] Thoracic post-laminectomy syndrome Active Condition Apr 19, 2019 Entered By: KIRK COTTRELL Comment: NON [facility] records 12/03/2018 - [facility] SAINI [facility] Under care of multiple providers Active Condition Apr 15, 2019 Entered By: KIRK COTTRELL Comment: Neurology - - DR IVONE Soria ( [facility] by non [facility]) fo rdx cva- neruo - states non a cvaFeb 2019 Entered By: KIRK COTTRELL Comment: NON [place] renal - DR CASILLAS / DR Holden- x 15 yrsApr 15, 2019 Entered By: KIRK COTTRELL Comment: NON GI DR SIDHU - hx bleeding ulder - last 2019 Entered By: KIRK COTTRELL Comment: NON [facility] cardiology dr TA - 2019 Entered By: KIRK COTTRELL Comment: NON [place] PCP - [facility] med pract - DR BRAVO SAINI - [phone] 15, 2019 Entered By: KIRK COTTRELL Comment: Neuro surgeon - DR VELA ( back neuro stim) - [facility] History of depression Inactive Condition 11/21/2021 [facility] History of depressive disorder Inactive Condition 11/21/2021 Apr 19, 2019 Entered By: KIRK COTTRELL Comment: with anxiety - per neurology note [facility] Recurrent major depressive episodes, moderate Inactive Condition 11/21/2021 [facility] Diagnosis: ICD-10-CM F43.12 Post-traumatic stress disorder, chronic Active Diagnosis [facility] [place] Diagnosis: ICD-10-CM G43.909 Migraine, unsp, not intractable, without status migrainosus Active Diagnosis [facility] [place] [facility] Diagnosis: ICD-10-CM F34.9 Persistent mood [affective] disorder, unspecified Active Diagnosis [facility] Diagnosis: ICD-10-CM G62.9 Polyneuropathy, unspecified Active Diagnosis [facility] Diagnosis: ICD-10-CM 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 [place] Diagnosis: ICD-10-CM Z46.0 Encounter for fit/adjst of spectacles and contact lenses Active Diagnosis [facility] Diagnosis: ICD-10-CM E11.9 Type 2 diabetes mellitus without complications Active Diagnosis [facility] Diagnosis: ICD-10-CM Z51.81 Encounter for therapeutic drug level monitoring Active Diagnosis [place] Diagnosis: ICD-10-CM N18.9 Chronic kidney disease, unspecified Active Diagnosis [facility] Diagnosis: ICD-10-CM M25.552 Pain in left hip Active Diagnosis [facility] Diagnosis: ICD-10-CM R41.9 Unsp symptoms and signs w cognitive functions and awareness Active Diagnosis [facility] Diagnosis: ICD-10-CM I10 Essential (primary) hypertension Active Diagnosis [facility] [place] [facility] Medications Combined list of outpatient medications from Department of Defense and Veterans Affairs facilities.Medications provided include 1) outpatient medications from the last 15 months, and 2) patient-reported medications. Medication Details Route Status Patient Instructions Prescription Expires Prescription Number Last Dispense Date Ordering Provider Order Date Order Qty Source AMLODIPINE BESYLATE 5MG TAB TAKE ONE TABLET BY MOUTH ONCE DAILY ORAL ACTIVE JOSE MANUEL PITT 2023 [facility] [place] [facility] AMMONIUM LACTATE 12% LOTION APPLY SMALL AMOUNT TOPICALL Y AT BEDTIME FOR DRY IRRITATE D SKIN UNDER OCCLUSIO N TOPICA L ACTIVE 08/21/2024 [id number] JULITA QUINTEROS 2023 240 [place] ARMODAFINIL 50MG TAB TAKE TWO TABLETS BY MOUTH EVERY MORNING ORAL ACTIVE 09/30/2024 [id number] Mack PIERRE E 2024 60 [facility] ARMODAFINIL 50MG TAB TAKE TWO TABLETS BY MOUTH EVERY MORNING ORAL DISCONT INUED (EDIT) 06/17/2024 [id number] Mack PIERRE E 2023 60 [facility] ARMODAFINIL 50MG TAB TAKE TWO TABLETS BY MOUTH EVERY MORNING TO IMPROVE WAKEFULN ESS ORAL DISCONT INUED (EDIT) 05/27/2024 [id number] 4 Mack PIERRE E 2023 60 [facility] ARMODAFINIL 50MG TAB TAKE ONE TABLET BY MOUTH EVERY MORNING FOR 4 DAYS, THEN TAKE TWO TABLETS EVERY MORNING ORAL DISCONT INUED (EDIT) 11/27/2023 [id number] Mack PIERRE E 2023 56 [facility] ATORVASTATI N CA 80MG TAB TAKE ONE TABLET BY MOUTH ONCE DAILY ORAL ACTIVE Melissa COTTRELL 2019 [facility] BREXPIPRAZO LE 1MG TAB TAKE ONE TABLET BY MOUTH ONCE DAILY ORAL DISCONT INUED (EDIT) 12/16/2024 [id number] Mack PIERRE E 2023 90 [facility] BREXPIPRAZO LE 1MG TAB TAKE ONE TABLET BY MOUTH ONCE DAILY FOR MOOD ORAL DISCONT INUED (EDIT) 02/22/2024 [id number] 4 Mack PIERRE E 2023 90 [facility] BREXPIPRAZO LE 1MG TAB TAKE ONE TABLET BY MOUTH ONCE DAILY FOR MOOD ORAL DISCONT INUED 11/20/2023 [id number] ROBERT STEVENS MD 2022 90 [facility] BREXPIPRAZO LE 2MG TAB TAKE ONE TABLET BY MOUTH ONCE DAILY ORAL ACTIVE 01/27/2025 [id number] Mack PIERRE E 2023 90 [facility] BREXPIPRAZO LE 2MG TAB TAKE ONE TABLET BY MOUTH ONCE DAILY FOR MOOD DOSE INCREASE ORAL DISCONT INUED (EDIT) 09/19/2024 [id number] 4 Mack PIERRE E 2023 90 [facility] CLONIDINE HCL 0.1MG TAB TAKE ONE TABLET BY MOUTH AT BEDTIME FOR INSOMNIA ORAL ACTIVE 03/31/2025 [id number] Mack PIERRE E 2024 90 [facility] CLONIDINE HCL 0.1MG TAB TAKE ONE TABLET BY MOUTH AT BEDTIME FOR INSOMNIA ORAL DISCONT INUED (EDIT) 11/25/2024 [id number] 5 Mack PIERRE E 2023 90 [facility] CLONIDINE HCL 0.1MG TAB TAKE ONE TABLET BY MOUTH AT BEDTIME FOR INSOMNIA ORAL DISCONT INUED 05/23/2024 [id number] 4 Mack PIERRE E 2023 90 [facility] CLONIDINE HCL 0.1MG TAB TAKE ONE TABLET BY MOUTH AT BEDTIME FOR INSOMNIA ORAL DISCONT INUED 02/22/2024 [id number] Mack PIERRE E 2023 90 [facility] CLONIDINE HCL 0.1MG TAB TAKE ONE TABLET BY MOUTH AT BEDTIME FOR INSOMNIA ORAL DISCONT INUED (EDIT) 12/14/2023 [id number] 4 Mack PIERRE E 2023 90 [facility] CLOPIDOGREL BISULFATE 75MG TAB TAKE ONE TABLET BY MOUTH ONCE DAILY ORAL ACTIVE PETROFF,S [facility] GABAPENTIN 400MG CAP TAKE 3 CAPSULES BY MOUTH THREE TIMES A DAY ORAL ACTIVE Mack PIERRE 2021 [facility] LIDOCAINE 5% PATCH APPLY 1 PATCH TOPICALL Y EVERY 12 HOURS NEEDED FOR NERVE PAIN (LEAVE PATCH ON FOR 12 HOURS, THEN REMOVE PATCH) TOPICA L ACTIVE 07/29/2024 [id number] JOSE MANUEL PITT 2023 30 [facility] LOSARTAN 50MG TAB TAKE ONE TABLET BY MOUTH ONCE DAILY ORAL ACTIVE PETROFF,S 2019 [facility] MAGNESIUM OXIDE 250MG TAB TAKE ONE TABLET BY MOUTH ONCE DAILY ORAL ACTIVE PETROFF,S 2019 [facility] METHOCARBAM OL 750MG TAB TAKE ONE TABLET BY MOUTH ONCE DAILY ORAL ACTIVE PETROFF,S 2019 [facility] METOPROLOL TARTRATE 25MG TAB TAKE ONE TABLET BY MOUTH ONCE DAILY ORAL ACTIVE PETROFF,S 2019 [facility] MIRABEGRON 25MG TAB,SA TAKE ONE TABLET BY MOUTH ONCE DAILY ORAL HOLD 10/23/2024 [id number] JESSICA BECKWITH S 2023 90 [facility] OMEPRAZOLE 20MG CAP,EC TAKE 2 CAPSULES BY MOUTH ONCE DAILY ORAL ACTIVE PETROFF,S 2019 [facility] ONABOTULINU MTOXINA 200 UNIT/FRANCISCO J INJ INJECT DIRECTED INTRAMUS CULARLY EVERY THREE MONTHS FOR MIGRAINE HEADACHE S INTRAM USCULA R SUSPEND ED 04/21/2025 [id number] 5 NARINDER CARRILLO 2024 1 [facility] [place] [facility] ONABOTULINU MTOXINA 200 UNIT/FRANCISCO J INJ INJECT DIRECTED INTRAMUS CULARLY EVERY THREE MONTHS FOR MIGRAINE HEADACHE S INTRAM USCULA R DISCONT INUED 07/22/2024 [id number] 5 NARINDER CARRILLO Y 2023 1 [facility] [place] ONABOTULINU MTOXINA 200 UNIT/FRANCISCO J INJ INJECT DIRECTED INTRAMUS CULARLY EVERY THREE MONTHS FOR MIGRAINE HEADACHE S INTRAM USCULA R DISCONT INUED 10/09/2023 [id number] 4 NARINDER CARRILLO Y 2022 1 [facility] [place] POLYETHYLEN E GLYCOL 3350 PWDR,ORAL TAKE 17 GRAMS (1 CAPFUL) BY MOUTH ONCE DAILY ORAL ACTIVE PETROFF,S 2019 [facility] [place] [facility] SUCRALFATE 1GM TAB TAKE ONE TABLET BY MOUTH TWICE DAILY ORAL ACTIVE PETROFF,S E 2019 [facility] [place] [facility] TRAZODONE HCL 100MG TAB TAKE TWO TABLETS BY MOUTH AT BEDTIME FOR INSOMNIA ORAL ACTIVE 03/31/2025 [id number] Mack PIERRE E 2024 180 [facility] [place] [facility] TRAZODONE HCL 100MG TAB TAKE TWO TABLETS BY MOUTH AT BEDTIME FOR INSOMNIA ORAL DISCONT INUED (EDIT) 11/25/2024 [id number] 4 Mack PIERRE E 2023 180 [facility] [place] [facility] TRAZODONE HCL 100MG TAB TAKE TWO TABLETS BY MOUTH AT BEDTIME FOR INSOMNIA ORAL DISCONT INUED 05/23/2024 [id number] 4 Mack PIERRE E 2023 180 [facility] [place] [facility] TRAZODONE HCL 100MG TAB TAKE TWO TABLETS BY MOUTH AT BEDTIME FOR INSOMNIA ORAL DISCONT INUED 12/14/2023 [id number] 4 Mack PIERRE E 2022 180 [facility] [place] TROSPIUM CL 20MG TAB TAKE ONE TABLET BY MOUTH TWICE DAILY ORAL ACTIVE 04/01/2025 [id number] 5 [place]PH[place] JESSICA MURILLO S 2024 60 [facility] [place] [facility] [facility] TROSPIUM CL 20MG TAB TAKE ONE TABLET BY MOUTH TWICE DAILY ON AN EMPTY STOMACH ORAL DISCONT INUED 10/28/2024 [id number] [place] ODJESSICA Chan S 2023 60 [facility] [place] TROSPIUM CL 20MG TAB TAKE ONE TABLET BY MOUTH TWICE DAILY ON AN EMPTY STOMACH ORAL DISCONT INUED 08/23/2024 [id number] 4 [place] ODJESSICA Chan S 2023 60 [facility] [place] TROSPIUM CL 20MG TAB TAKE ONE TABLET BY MOUTH TWICE DAILY ADMINIST ER ON AN EMPTY STOMACH ORAL DISCONT INUED 06/13/2024 [id number] 4 [place] JESSICA MURILLO S 2023 60 [facility] [place] [facility] Allergies, Adverse Reactions, Alerts Combined list of allergies from Department of Defense and Veterans Affairs facilities. It does not include entries that were removed or entered in error. Substance Category Reaction Severity Reaction type Status Date Reported Comments Source METFORMIN Propensity to adverse reactions to drug (finding) Acute renal failure syndrome active 0 [facility] [place] [facility] Immunizations Combined list of available immunizations from the Department of Defense and Veterans Affairs facilities. Immunization Series Date Given Administered By Site Reaction Lot Number CVX Code Drug Meat Carver Status Comments Source ZOSTER RECOMBINANT 2 2022 AYALA KELLY LEFT DELTO ID [id number] 187 complet ed Adjuvant suspensio n- [id number] exp- 10/06/23 [facility] [place] ZOSTER RECOMBINANT 2022 FARHAN BAUTISTA M LEFT DELTO ID [id number] 187 complet ed [id number] [facility] [place] INFLUENZA, UNSPECIFIED FORMULATION 2022 88 complet ed [facility] [place] [facility] COVID-19 (PFIZER), MRNA, LNP-S, BIVALENT BOOSTER, PF, 30 MCG/0.3 ML DOSE 4 2021 300 complet ed Lot#: [id number] [facility] [place] INFLUENZA, UNSPECIFIED FORMULATION 2021 88 complet ed [facility] TDAP 2021 115 complet ed [facility] COVID-19 (PFIZER), MRNA, LNP-S, PF, 30 MCG/0.3 ML DOSE 3 2020 208 complet ed [facility] COVID-19 (PFIZER), MRNA, LNP-S, PF, 30 MCG/0.3 ML DOSE 2 2020 208 complet ed [facility] COVID-19 (PFIZER), MRNA, LNP-S, PF, 30 MCG/0.3 ML DOSE 1 2020 208 complet ed [facility] INFLUENZA, UNSPECIFIED FORMULATION 2019 88 complet ed [facility] INFLUENZA, SEASONAL, INJECTABLE 2018 141 complet ed [facility] Results Combined list of recent chemistry, hematology and other laboratory results from Department of Defense and Veterans Affairs, ranging from 15 months to all on record, depending upon the facility. Order Name Results Value Reference Range Date Interpretation Specimen Comments Source FOLATE (WROX) FOLATE [MASS/VOLU ME] IN SERUM OR PLASMA 9.07 ng/mL 5.2 12/18 Specimen Type: SERUM No comment entered. Ordering Provider: JET PIERRE Report Released Date/Time: Oct 28, 2023 09:59 AM Reporting Lab: [facility] [place] [facility] [address] [facility] [address] Performing Lab: [facility] [place] [facility] [address] [facility] [address] [facility] [place] [facility] TSH THYROTROPI N [UNITS/VOL UME] IN SERUM OR PLASMA 1.09 u[IU]/mL 0.35 - 5.00 12/18 Specimen Type: SERUM No comment entered. Ordering Provider: JET PIERRE Report Released Date/Time: Oct 28, 2023 09:59 AM Reporting Lab: [facility] [place] [facility] [address] [facility] [address] Performing Lab: [facility] [place] [facility] [address] [facility] [address] [facility] [facility] VITAMIN B12 COBALAMIN (VITAMIN B12) [MASS/VOLU ME] IN SERUM OR PLASMA 297 pg/mL 200 - 900 12/18 Specimen Type: SERUM No comment entered. Ordering Provider: JET PIERRE Report Released Date/Time: Oct 28, 2023 09:59 AM Reporting Lab: [facility] [place] [facility] [address] [facility] [address] Performing Lab: [facility] [place] [address] [address] [facility] [place] [facility] VITAMIN D (25-OH) 25-HYDROXY VITAMIN D3 [MASS/VOLU ME] IN SERUM OR PLASMA 38 ng/mL 20 - 50 12/18 Specimen Type: SERUM No comment entered. Ordering Provider: JET PIERRE Report Released Date/Time: Oct 28, 2023 09:59 AM Reporting Lab: [facility] [place] [address] [address] Performing Lab: [facility] [place] [address] [address] [facility] [place] [facility] BASIC METABOLI C PANEL (fasting ) UREA NITROGEN [MASS/VOLU ME] IN SERUM OR PLASMA 18 mg/dL 7 - 25 12/18 Specimen Type: SERUM No comment entered. Ordering Provider: JET PIERRE Report Released Date/Time: Dec 16, 2023 09:50 AM Reporting Lab: [facility] [place] [address] [address] Performing Lab: [facility] [place] [address] [address] [facility] [place] [facility] BASIC METABOLI C PANEL (fasting ) GLUCOSE [MASS/VOLU ME] IN SERUM OR PLASMA 117 mg/dL 65 - 100 12/18 H Specimen Type: SERUM No comment entered. Ordering Provider: JET PIERRE Report Released Date/Time: Dec 16, 2023 09:50 AM Reporting Lab: [facility] [address] [address] Performing Lab: [facility] [address] [address] [facility] BASIC METABOLI C PANEL (fasting ) SODIUM [MOLES/VOL UME] IN SERUM OR PLASMA 141 mmol/L 135 - 145 12/18 Specimen Type: SERUM No comment entered. Ordering Provider: JET PIERRE Report Released Date/Time: Dec 16, 2023 09:50 AM Reporting Lab: [facility] [address] [address] Performing Lab: [facility] [address] [address] [facility] BASIC METABOLI C PANEL (fasting ) POTASSIUM [MOLES/VOL UME] IN SERUM OR PLASMA 4.3 mmol/L 3.5 - 5.0 12/18 Specimen Type: SERUM No comment entered. Ordering Provider: JET PIERRE Report Released Date/Time: Dec 16, 2023 09:50 AM Reporting Lab: [facility] [address] Performing Lab: [facility] TRN [facility] [address] [facility] BASIC METABOLI C PANEL (fasting ) CHLORIDE [MOLES/VOL UME] IN SERUM OR PLASMA 107 mmol/L 100 - 110 12/18 Specimen Type: SERUM No comment entered. Ordering Provider: JET PIERRE Report Released Date/Time: Dec 16, 2023 09:50 AM Reporting Lab: [facility] [address] [address] Performing Lab: [facility] [address] [facility] [address] [facility] BASIC METABOLI C PANEL (fasting ) CARBON DIOXIDE, TOTAL [MOLES/VOL UME] IN SERUM OR PLASMA 25 meq/L 20 - 30 12/18 Specimen Type: SERUM No comment entered. Ordering Provider: JET PIERRE Report Released Date/Time: Dec 16, 2023 09:50 AM Reporting Lab: [facility] [address] [address] Performing Lab: [facility] [address] [address] [facility] BASIC METABOLI C PANEL (fasting ) CREATININE [MASS/VOLU ME] IN SERUM OR PLASMA 0.98 mg/dL 0.50 - 1.40 12/18 Specimen Type: SERUM No comment entered. Ordering Provider: JET IPERRE Report Released Date/Time: Dec 16, 2023 09:50 AM Reporting Lab: [address] [address] Performing Lab: [address] [address] [facility] BASIC METABOLI C PANEL (fasting ) GLOMERULAR FILTRATION RATE/1.73 SQ M.PREDICTE D [VOLUME RATE/AREA] IN SERUM, PLASMA OR BLOOD BY CREATININE -BASED FORMULA (CKD-EPI 2020) 85 mL/min 60 12/18 Specimen Type: SERUM No comment entered. Ordering Provider: JET PIERRE Report Released Date/Time: Dec 16, 2023 09:50 AM Reporting Lab: [address] [address] Performing Lab: [address] [address] [facility] HEMOGLOB IN A1C PANEL HEMOGLOBIN A1C/HEMOGL OBIN.TOTAL IN BLOOD BY HPLC 5.5 4.0 - 5.6 12/18 Specimen Type: BLOOD Comment: Values obtained from A1C measurement s can vary. For atypical A1C assays, a reported value of 7.0 could actually be between 6.72 and 7.28 if measured by a reference method. A reported value of 9.0 could actually be between 8.73 and 9.27. Ref: http://www. ngsp.org/[place] Pdata.asp Ordering Provider: JET PIERRE Report Released Date/Time: Dec 16, 2023 09:50 AM Reporting Lab: [facility] [address] Performing Lab: [facility]N [address] [phone] [place], [place] [address] [facility] LIPID PANEL FASTING CHOLESTERO L [MASS/VOLU ME] IN SERUM OR PLASMA 113 mg/dL 12/18 Specimen Type: SERUM No comment entered. Ordering Provider: JET PIERRE Report Released Date/Time: Dec 16, 2023 09:50 AM Reporting Lab: [facility]ITALN [facility] [address] Performing Lab: [facility] TRN [address] [address] [facility] LIPID PANEL FASTING TRIGLYCERI DE [MASS/VOLU ME] IN SERUM OR PLASMA 85 mg/dL 0 - 150 12/18 Specimen Type: SERUM No comment entered. Ordering Provider: JET PIERRE Report Released Date/Time: Dec 16, 2023 09:50 AM Reporting Lab: [facility] [address] Performing Lab: [facility]ITALN [facility] [address] [facility] LIPID PANEL FASTING CHOLESTERO L IN LDL [MASS/VOLU ME] IN SERUM OR PLASMA BY CALCULATIO N 50 mg/dL 0 - 129 12/18 Specimen Type: SERUM No comment entered. Ordering Provider: JET PIERRE Report Released Date/Time: Dec 16, 2023 09:50 AM Reporting Lab: [facility] [place] [facility] [address] [facility] [address] Performing Lab: [facility] [place] [facility] [address] [facility] [address] [facility] [place] [facility] LIPID PANEL FASTING CHOLESTERO L.TOTAL/CH OLESTEROL IN HDL [MASS RATIO] IN SERUM OR PLASMA 2.5 12/18 Specimen Type: SERUM No comment entered. Ordering Provider: JET PIERRE Report Released Date/Time: Dec 16, 2023 09:50 AM Reporting Lab: [facility] [place] [facility] [address] [facility] [address] Performing Lab: [facility] [place] [facility] [address] [facility] [address] [facility] W[facility]N [facility] LIPID PANEL FASTING CHOLESTERO L IN HDL [MASS/VOLU ME] IN SERUM OR PLASMA 46 mg/dL 40 - 60 12/18 Specimen Type: SERUM No comment entered. Ordering Provider: JET PIERRE Report Released Date/Time: Dec 16, 2023 09:50 AM Reporting Lab: [facility] [place] [facility] [address] [facility] [id number] Performing Lab: [facility] [place] [facility] [address] [facility] [id number] [facility] [place]CROSCO PIC AUTOMATE D, URINE LEUKOCYTES [#/AREA] IN URINE SEDIMENT BY MICROSCOPY HIGH POWER FIELD 0-5/[HPF ] 0 - 5 01/23 Specimen Type: URINE Comment: If Glucose = >500 and Ketones are positive, please alert the Physician. Ordering Provider: MAYE PITT SA Report Released Date/Time: Jan 23, 2023 09:42 AM Reporting Lab: [facility] [place] [facility] [address] [facility] [address] Performing Lab: [facility] [place] [facility] [address] [facility] [id number] [facility] [facility] [place] PIC AUTOMATE D, URINE MUCUS [#/AREA] IN URINE SEDIMENT BY MICROSCOPY LOW POWER FIELD FEW/[LPF ] 01/23 Specimen Type: URINE Comment: If Glucose = >500 and Ketones are positive, please alert the Physician. Ordering Provider: MAYE PITT SA Report Released Date/Time: Jan 23, 2023 09:42 AM Reporting [facility] [facility] [address] [facility] [address] Performing Lab: [facility]ITALN [facility] [address] [facility] [address] [facility] MICROSCO PIC AUTOMATE D, URINE ERYTHROCYT ES [#/AREA] IN URINE SEDIMENT BY MICROSCOPY HIGH POWER FIELD 0-2/[HPF ] 0 - 3 01/23 Specimen Type: URINE Comment: If Glucose = >500 and Ketones are positive, please alert the Physician. Ordering Provider: MAYE PITT SA Report Released Date/Time: Jan 23, 2023 09:42 AM Reporting Lab: [facility]ITALN [facility] [address] [facility] [address] Performing Lab: [facility]RL TRN [facility] [address] [facility] [address] [facility] [place] PIC AUTOMATE D, URINE EPITHELIAL CELLS.SQUA MOUS [#/AREA] IN URINE SEDIMENT BY MICROSCOPY HIGH POWER FIELD FEW/[HPF ] 01/23 Specimen Type: URINE Comment: If Glucose = >500 and Ketones are positive, please alert the Physician. Ordering Provider: MAYE PITT SA Report Released Date/Time: Jan 23, 2023 09:42 AM Reporting Lab: [facility]ERR[facility]OSPITALTRN [facility] [address] [facility] [address] Performing Lab: [facility]ERR[facility]OSPITALN [facility] CENTERUSE[address] [address] [facility] PSA PROSTATE SPECIFIC AG [MASS/VOLU ME] IN SERUM OR PLASMA 0.30 ng/mL 0.00 - 4.00 01/23 Specimen Type: SERUM No comment entered. Ordering Provider: MAYE PITT SA Report Released Date/Time: Jan 23, 2023 09:37 AM Reporting Lab: [facility] [address] [facility] [address] Performing Lab: [facility] [address] [facility] [address] [facility] URINALYS IS CLEAN CATCH COLOR OF URINE Yellow 01/23 Specimen Type: URINE Comment: If Glucose = >500 and Ketones are positive, please alert the Physician. Ordering Provider: MAYE PITT SA Report Released Date/Time: Jan 23, 2023 09:42 AM Reporting Lab: [facility] [address] [facility] [address] Performing Lab: [facility] [facility] [address] [facility] [address] [facility] URINALYS IS CLEAN CATCH APPEARANCE OF URINE Clear 01/23 Specimen Type: URINE Comment: If Glucose = >500 and Ketones are positive, please alert the Physician. Ordering Provider: MAYE PITT SA Report Released Date/Time: Jan 23, 2023 09:42 AM Reporting Lab: [facility] [address] [facility] [address] Performing Lab: [facility] [facility] [address] [facility] [address] [facility] URINALYS IS CLEAN CATCH GLUCOSE [MASS/VOLU ME] IN URINE 150 mg/dL 01/23 Specimen Type: URINE Comment: If Glucose = >500 and Ketones are positive, please alert the Physician. Ordering Provider: MAYE PITT SA Report Released Date/Time: Jan 23, 2023 09:42 AM Reporting Lab: [facility] [address] [facility] [address] Performing Lab: [facility] [facility] [address] [facility] [address] [facility] URINALYS IS CLEAN CATCH KETONES [MASS/VOLU ME] IN URINE BY TEST STRIP NEGATIVE mg/dL 01/23 Specimen Type: URINE Comment: If Glucose = >500 and Ketones are positive, please alert the Physician. Ordering Provider: MAYE PITT SA Report Released Date/Time: Jan 23, 2023 09:42 AM Reporting Lab: [facility] [facility] [address] [facility] [address] Performing Lab: [facility] [facility] [address] [facility] [address] [facility] URINALYS IS CLEAN CATCH ERYTHROCYT ES [PRESENCE] IN URINE SEDIMENT BY LIGHT MICROSCOPY NEGATIVE mg/dL 01/23 Specimen Type: URINE Comment: If Glucose = >500 and Ketones are positive, please alert the Physician. Ordering Provider: MAYE PITT SA Report Released Date/Time: Jan 23, 2023 09:42 AM Reporting Lab: [facility] [address] [address] Performing Lab: [facility] [address] [address] [facility] URINALYS IS CLEAN CATCH PROTEIN [MASS/VOLU ME] IN URINE BY TEST STRIP 200 mg/dL 01/23 Specimen Type: URINE Comment: If Glucose = >500 and Ketones are positive, please alert the Physician. Ordering Provider: MAYE PITT SA Report Released Date/Time: Jan 23, 2023 09:42 AM Reporting Lab: [facility] [address] [address] Performing Lab: [facility] [address] [address] [facility] URINALYS IS CLEAN CATCH NITRITE [PRESENCE] IN URINE NEGATIVE mg/dL 01/23 Specimen Type: URINE Comment: If Glucose = >500 and Ketones are positive, please alert the Physician. Ordering Provider: MAYE PITT SA Report Released Date/Time: Jan 23, 2023 09:42 AM Reporting Lab: [facility] [address] [address] Performing Lab: [facility] [address] [facility] URINALYS IS CLEAN CATCH BILIRUBIN. TOTAL [PRESENCE] IN URINE NEGATIVE mg/dL 01/23 Specimen Type: URINE Comment: If Glucose = >500 and Ketones are positive, please alert the Physician. Ordering Provider: MAYE PITT SA Report Released Date/Time: Jan 23, 2023 09:42 AM Reporting Lab: [address] [address] Performing Lab: [address] [address] [facility] URINALYS IS CLEAN CATCH SPECIFIC GRAVITY OF URINE BY REFRACTOME TRY 1.027 1.016 - 1.022 01/23 H Specimen Type: URINE Comment: If Glucose = >500 and Ketones are positive, please alert the Physician. Ordering Provider: MAYE PITT SA Report Released Date/Time: Jan 23, 2023 09:42 AM Reporting Lab: [address] [address] Performing Lab: [address] [address] [facility] URINALYS IS CLEAN CATCH PH OF URINE BY TEST STRIP 6.0 5.0 - 9.0 01/23 Specimen Type: URINE Comment: If Glucose = >500 and Ketones are positive, please alert the Physician. Ordering Provider: MAYE PITT SA Report Released Date/Time: Jan 23, 2023 09:42 AM Reporting Lab: [address] [address] Performing Lab: [address] [address] [facility] URINALYS IS CLEAN CATCH UROBILINOG EN [MASS/VOLU ME] IN URINE BY TEST STRIP <2.0mg/d L <2.0 - 2.0 01/23 Specimen Type: URINE Comment: If Glucose = >500 and Ketones are positive, please alert the Physician. Ordering Provider: MAYE PITT SA Report Released Date/Time: Jan 23, 2023 09:42 AM Reporting Lab: [facility] [address] [facility] [address] Performing Lab: [facility] [address] [facility] [address] [facility] URINALYS IS CLEAN CATCH LEUKOCYTE ESTERASE [PRESENCE] IN URINE BY TEST STRIP NEGATIVE 01/23 Specimen Type: URINE Comment: If Glucose = >500 and Ketones are positive, please alert the Physician. Ordering Provider: MAYE PITT SA Report Released Date/Time: Jan 23, 2023 09:42 AM Reporting Lab: [facility] [facility] [address] [facility] [address] Performing Lab: [facility] [facility] [address] [facility] [address] [facility] Vital Signs Combined list of inpatient and outpatient Vital Signs from Department of Defense and Veterans Affairs, ranging from 12 months to all on record, depending upon the facility. Vital Sign Value Date Comments Source SYSTOLIC BLOOD PRESSURE 158 04/21/19 25 09:04:00 [facility] DIASTOLIC BLOOD PRESSURE 77 025 09:04:00 [facility] PULSE OXIMETRY 96 04/20/2024 09:04:00 [facility] WEIGHT 245 04/20/2024 09:04:00 [facility] BMI 34 kg/m2 04/20/2024 09:04:00 [facility] PAIN 6 04/20/2024 09:04:00 [facility] TEMPERATURE 97.2 04/20/2024 09:04:00 [facility] PULSE 68 04/20/2024 09:04:00 [facility] RESPIRATION 18 04/20/2024 09:04:00 [facility] SYSTOLIC BLOOD PRESSURE 175 01/20/20 24 08:55:33 [facility] DIASTOLIC BLOOD PRESSURE 80 024 08:55:33 [facility] PULSE OXIMETRY 97 01/20/2024 08:55:33 [facility] PAIN 8 01/20/2024 08:55:33 [facility] TEMPERATURE 98.3 01/20/2024 08:55:33 [facility] PULSE 66 01/20/2024 08:55:33 [facility] RESPIRATION 18 01/20/2024 08:55:33 [facility] SYSTOLIC BLOOD PRESSURE 148 10/28/19 24 07:58:29 [facility] DIASTOLIC BLOOD PRESSURE 88 024 07:58:29 [facility] PULSE 64 10/28/2023 07:58:29 [facility] RESPIRATION 20 10/28/2023 07:58:29 [facility] SYSTOLIC BLOOD PRESSURE 162 07/29/19 24 08:13:13 [facility] DIASTOLIC BLOOD PRESSURE 82 024 08:13:13 [facility] PULSE OXIMETRY 97 07/29/2023 08:13:13 [facility] WEIGHT 246.4 07/29/2023 08:13:13 [facility] BMI 34 kg/m2 07/29/2023 08:13:13 [facility] PAIN 8 07/29/2023 08:13:13 [facility] HEIGHT 71 07/29/2023 08:13:13 [facility] TEMPERATURE 98 07/29/2023 08:13:13 [facility] PULSE 80 07/29/2023 08:13:13 [facility] RESPIRATION 16 07/29/2023 08:13:13 [facility] SYSTOLIC BLOOD PRESSURE 149 07/22/19 07:55:24 [facility] DIASTOLIC BLOOD PRESSURE 79 024 07:55:24 [facility] PULSE OXIMETRY 95 07/22/2023 07:55:24 [facility] WEIGHT 260 07/22/2023 07:55:24 [facility] BMI 36 kg/m2 07/22/2023 07:55:24 [facility] PAIN 6 07/22/2023 07:55:24 [facility] TEMPERATURE 97.6 07/22/2023 07:55:24 [facility] PULSE 62 07/22/2023 07:55:24 [facility] RESPIRATION 18 07/22/2023 07:55:24 [facility] Encounters Combined list of: 1) Encounters from Department of Veterans Affairs facilities going backup to the last 18 months, not all VA inpatient encounters are included; 2) Encounters from the Department of Defense facilities going backup to 280 months. Location Location Details Encounter Type Encounter Number Reason For Visit Attending Provider ADM Date DC Date Status Disposition Source [facility] HC PRO PHONE CALL 11-20 MIN [id number] Diagnos is: ICD-10- CM F34.9 Persist ent mood [affect evie] disorde r, unspeci HEATHER August 11/05 [facility] PSYTX W PT 45 MINUTES [id number] Diagnos is: ICD-10- CM F34.9 Persist ent mood [affect evie] disorde r, unspeci fiHEATHER Milner A 11/12 [facility] PSYTX W PT 45 MINUTES [id number] Diagnos is: ICD-10- CM F34.9 Persist ent mood [affect evie] disorde r, unspeci HEATHER August A 11/19 [facility] Outpatient [facility]counter [id number] 11/19 [facility] Outpatient Encounter [id number] 11/20 [facility] PSYTX W PT 45 MINUTES [id number] Diagnos is: ICD-10- CM F43.12 Post-tr aumatic stress disorde r, chronic HEATHER CAMPOS A 12/03 [facility] EYE EXAM&TX ESTAB PT 1/>VST [id number] Diagnos is: ICD-10- CM E11.9 Type 2 diabete s mellitu s without complic ations TRINA QUEVEDO 12/04 [facility] Outpatient Encounter [id number] 12/04 [facility] FIT SPECTACLES MULTIFOCAL [id number] Diagnos is: ICD-10- CM Z46.0 Encount er for fit/adj st of spectac les and contact lenses ADENIKE GOOD 12/04 [facility] OFFICE O/P EST HI 40-54 MIN [id number] Diagnos is: ICD-10- CM F43.12 Post-tr aumatic stress disorde r, chronic CYNTHIA PIERRE SSICA E 12/13 [facility] PSYTX W PT 45 MINUTES [id number] Diagnos is: ICD-10- CM F43.12 Post-tr aumatic stress disorde r, chronic HEATHER CAMPOS A 12/17 [facility] PSYTX W PT 45 MINUTES [id number] Diagnos is: ICD-10- CM F43.12 Post-tr aumatic stress disorde r, chronic HEATHER CAMPOS A 12/31 [facility] PSYTX W PT 45 MINUTES [id number] Diagnos is: ICD-10- CM F34.9 Persist ent mood [affect evie] disorde r, unspeci fied HEATHER CAMPOS A 01/14 [facility] OFFICE O/P EST MOD 30-39 MIN [id number] Diagnos is: ICD-10- CM I10 Essenti al (primar y) hyperte nsion SWEETIE,L DEEDEE ARIS 01/23 [facility] OFFICE O/P EST MOD 30-39 MIN [id number] Diagnos is: ICD-10- CM G43.909 Migrain e, unsp, not intract able, without status migrain osus RAJI CARRILLO IEL Y 01/23 [facility] Outpatient Encounter [id number] 01/23 [facility] PSYTX W PT 45 MINUTES [id number] Diagnos is: ICD-10- CM F43.12 Post-tr aumatic stress disorde r, chronic HEATHER CAMPOS A 01/28 [facility] PSYTX W PT 45 MINUTES [id number] Diagnos is: ICD-10- CM F43.12 Post-tr aumatic stress disorde r, chronic HEATHER CAMPOS A 02/12 [facility] THERAPEUTI C EXERCISES [id number] Diagnos is: ICD-10- CM M25.552 Pain in left hip VIVIAN MARTINEZ 02/21 [facility] OFFICE O/P EST MOD 30 MIN [id number] Diagnos is: ICD-10- CM F34.9 Persist ent mood [affect evie] disorde r, unspeci CYNTHIA FallonCA E 02/21 [facility] PSYTX W PT 45 MINUTES [id number] Diagnos is: ICD-10- CM F43.12 Post-tr aumatic stress disorde r, chronic HEATHER CAMPOS A 02/25 [facility] THERAPEUTI C EXERCISES [id number] Diagnos is: ICD-10- CM M25.552 Pain in left hip VIVIAN MARTINEZ 03/11 [facility] Out[facility] Encounter [id number] 03/22 [facility] PSYTX W PT 45 MINUTES [id number] Diagnos is: ICD-10- CM F43.12 Post-tr aumatic stress disorde r, chronic HEATHER CAMPOS A 03/25 [facility] NEUROMUSCU LAR REEDUCATIO N [id number] Diagnos is: ICD-10- CM M25.552 Pain in left hip VIVIAN MARTINEZ 03/25 [facility] Out[facility] Encounter [id number] 04/15 [facility] PSYTX W PT 45 MINUTES [id number] Diagnos is: ICD-10- CM F43.12 Post-tr aumatic stress disorde r, chronic HEATHER CAMPOS A 04/15 [facility] Out[facility] Encounter [id number] 04/17 [facility] PSYCH DIAGNOSTIC EVALUATION [id number] Diagnos is: ICD-10- CM R41.9 Unsp symptom s and signs w cogniti ve functio ns and awarene ss FEARING,AR ANDREZ A 04/21 [facility] PSYTX W PT 45 MINUTES [id number] Diagnos is: ICD-10- CM F34.9 Persist ent mood [affect evie] disorde r, unspeci fied BETHHEATHER A 04/22 [facility] OFFICE O/P EST MOD 30 MIN [id number] Diagnos is: ICD-10- CM G43.909 Migrain e, unsp, not intract able, without status migrain osRAJI Del Castillo IEL Y 04/23 [facility] Outpatient Encounter [id number] 04/23 [facility] PSYTX W PT 45 MINUTES [id number] Diagnos is: ICD-10- CM F34.9 Persist ent mood [affect evie] disorde r, unspeci HEATHER August A 04/29 [facility] Out[facility] Encounter [id number] 04/30 [facility] PSYTX W PT 45 MINUTES [id number] Diagnos is: ICD-10- CM F43.12 Post-tr aumatic stress disorde r, HEATHER Alcantara A 05/12 [facility] PSYCL/NRPS YC TST PHY/Q[place] [id number] Diagnos is: ICD-10- CM R41.9 Unsp symptom s and signs w cogniti ve functio ns and awarene ss FEARING,AR CHAEL A 05/15 [facility] Out[facility] En[facility] [id number] 05/21 [facility] OFFICE O/P EST MOD 30 MIN [id number] Diagnos is: ICD-10- CM F34.9 Persist ent mood [affect evie] disorde r, unspeci firoberto carlos IGNACIOCYNTHIA TRUONGALLY E 05/22 [facility] PSYTX W PT 45 MINUTES [id number] Diagnos is: ICD-10- CM F34.9 Persist ent mood [affect evie] disorde r, unspeci HEATHER August A 05/26 [facility] En[facility] [id number] 06/05 [facility] PSYTX W PT 45 MINUTES [id number] Diagnos is: ICD-10- CM F43.12 Post-tr aumatic stress disorde r, chronic HEATHER CAMPOS A 06/09 [facility] Outpatient [facility]counter [id number] 06/11 [facility] THERAPEUTI C EXERCISES [id number] Diagnos is: ICD-10- CM M25.552 Pain in left hip VIVIAN MARTINEZ 06/12 [facility] PSYTX W PT 45 MINUTES [id number] Diagnos is: ICD-10- CM F43.12 Post-tr aumatic stress disorde r, chronic HEATHER CAMPOS A 07/07 [facility] PSYTX W PT 45 MINUTES [id number] Diagnos is: ICD-10- CM F43.12 Post-tr aumatic stress disorde r, chronic BETHSIRISHAN A 07/21 [facility] OFFICE O/P EST MOD 30 MIN [id number] Diagnos is: ICD-10- CM G43.909 Migrain e, unsp, not intract able, without status migrain osRAJI Del Castillo IEL Y 07/21 [facility] Out[facility] Encounter [id number] 07/21 [facility] OFFICE O/P EST HI 40 MIN [id number] Diagnos is: ICD-10- CM F34.9 Persist ent mood [affect evie] disorde r, unspeci fied CYNTHIA PIERRE SSICA E 07/24 [facility] PSYTX W PT 45 MINUTES [id number] Diagnos is: ICD-10- CM F43.12 Post-tr aumatic stress disorde r, chronic HEATHER CAMPOS A 07/28 [facility] OFFICE O/P EST MOD 30 MIN [id number] Diagnos is: ICD-10- CM N18.9 Chronic kidney disease , unspeci fied Rufino PITT 07/28 [facility] Outpatient Encounter [id number] 07/29 [facility] Out[facility] Encounter [id number] 07/30 [facility] [place] OFFICE O/P NEW LOW 30 MIN [id number] Diagnos is: ICD-10- CM L60.3 Nail dystrop hy ELPIDIO QUINTEROS ES F 08/20 [place] [facility] PSYTX W PT 45 MINUTES [id number] Diagnos is: ICD-10- CM F34.9 Persist ent mood [affect evie] disorde r, unspeci fiHEATHER Milner A 09/01 [facility] OFF[facility] O/P EST MOD 30 MIN [id number] Diagnos is: ICD-10- CM F34.9 Persist ent mood [affect evie] disorde r, unspeci CYNTHIA Fallon SSICA E 09/08 [facility] GROUP PSYCHOTHER APY [id number] Diagnos is: ICD-10- CM F43.12 Post-tr aumatic stress disorde r, chronic DENISSE,LAZ AN 09/10 [facility] Out[facility] Encounter [id number] SAMARA MILLER ISTOPHER E 09/18 [facility] OFFICE O/P EST MOD 30 MIN [id number] Diagnos is: ICD-10- CM F34.9 Persist ent mood [affect evie] disorde r, unspeci CYNTHIA Fallon SSICA E 09/18 [facility] GROUP PSYCHOTHER APY [id number] Diagnos is: ICD-10- CM F43.12 Post-tr aumatic stress disorde r, chronic DENISSE,LAZ AN 09/24 [facility] PSYTX W PT 45 MINUTES [id number] Diagnos is: ICD-10- CM F34.9 Persist ent mood [affect evie] disorde r, unspeci fiHEATHER Milner A 09/29 [facility] PSYCH[facility] APY [id number] Diagnos is: ICD-10- CM F43.12 Post-tr aumatic stress disorde r, chronic DENISSELAZ AVERY AN 10/01 [facility] PSYCHOTHER APY [id number] Diagnos is: ICD-10- CM F43.12 Post-tr aumatic stress disorde r, chronic DENISSE,LAZ AN 10/08 [facility] GROUP PSYCHOTHER APY [id number] 1. Diagnos is: ICD-10- CM F43.12 Post-tr aumatic stress disorde r, chronic DENISSELAZ AVERY AN 10/15 [facility] PSYCHOTHER [facility]Y [id number] 1. Diagnos is: ICD-10- CM F43.12 Post-tr aumatic stress disorde r, chronic DENISSE,LAZ AN 10/22 [facility] Out[facility] Encounter [id number] 10/22 [facility] En[facility] [id number] 10/24 [facility] PSYTX W PT 45 MINUTES [id number] Diagnos is: ICD-10- CM F43.12 Post-tr aumatic stress disorde r, chronic BETHHEATHER A 10/27 [facility] Outpatient Encounter [id number] 10/27 [facility] OFFICE O/P EST MOD 30 MIN [id number] Diagnos is: ICD-10- CM G43.909 Migrain e, unsp, not intract able, without status migrain osRAJI Del Castillo IEL Y 10/27 [facility] Outpatient Encounter [id number] 10/27 [facility] OFFICE O/P EST HI 40 MIN [id number] 1. Diagnos is: ICD-10- CM F34.9 Persist ent mood [affect evie] disorde r, unspeci CYNTHIA Fallon SSICA E 10/27 [facility] [place] QNHP OL DIG ASSMT&MGMT 5-10 [id number] Diagnos is: ICD-10- CM Z51.81 Encount er for therape utic drug level monitor TAMI Gay A 10/27 [place] [facility] GROUP PSYCHOTHER APY [id number] 1. Diagnos is: ICD-10- CM F43.12 Post-tr aumatic stress disorde r, chronic DENISSE,LAZ AN 10/29 [facility] GROUP PSYCHOTHER APY [id number] 1. Diagnos is: ICD-10- CM F43.12 Post-tr aumatic stress disorde r, chronic DENISSE,LAZ AN 11/05 [facility] GROUP PSYCHOTHER APY [id number] Diagnos is: ICD-10- CM F43.12 Post-tr aumatic stress disorde r, chronic DENISSE,LAZ AN 11/12 [facility] PSYTX W PT 45 MINUTES [id number] Diagnos is: ICD-10- CM F43.12 Post-tr aumatic stress disorde r, chronic BETH,HEATHER A 11/18 [facility] GROUP PSYCHOTHER APY [id number] 1. Diagnos is: ICD-10- CM F43.12 Post-tr aumatic stress disorde r, chronic DENISSE,LAZ AN 11/19 [facility] GROUP PSYCHOTHER [place]Y [id number] Diagnos is: ICD-10- CM F43.12 Post-tr aumatic stress disorde r, chronic DENISSE,LAZ AN 11/26 [facility] GROUP PSYCHOTHER [facility]Y [id number] Diagnos is: ICD-10- CM F43.12 Post-tr aumatic stress disorde r, chronic DENISSE,LAZ AN 12/03 [facility] GROUP PSYCHOTHER APY [id number] Diagnos is: ICD-10- CM F43.12 Post-tr aumatic stress disorde r, chronic DENISSE,LAZ AN 12/10 [facility] OFFICE O/P EST MOD 30 MIN [id number] 1. Diagnos is: ICD-10- CM F34.9 Persist ent mood [affect evie] disorde r, unspeci fiCYNTHIA Ortega SSICA E 12/15 [facility] GROUP PSYCHOTHER APY [id number] 1. Diagnos is: ICD-10- CM F34.9 Persist ent mood [affect evie] disorde r, unspeci fied DENISSE,LAZ AN 12/17 [facility] COMPRE [place]AM EST PT 1/ [id number] 1. Diagnos is: ICD-10- CM E11.9 Type 2 diabete s mellitu s without complic ations TRINA QUEVEDO SIRI 12/18 [facility] FIT SPECTACLES MULTIFOCAL [id number] 1. Diagnos is: ICD-10- CM Z46.0 Encount er for fit/adj st of spectac les and contact lenses TRINA QUEVEDO SIRI 12/18 [facility] PSYTX W PT 45 MINUTES [id number] 1. Diagnos is: ICD-10- CM F43.12 Post-tr aumatic stress disorde r, chronic HEATHER CAMPOS 12/22 [facility] Out[facility] Encounter [id number] HEATHER CAMPOS 12/22 [facility] GROUP PSYCHOTHER APY [id number] Diagnos is: ICD-10- CM F43.12 Post-tr aumatic stress disorde r, chronic DENISSE,LAZ AN 12/24 [facility] GROUP PSYCHOTHER [place]Y [id number] Diagnos is: ICD-10- CM F43.12 Post-tr aumatic stress disorde r, chronic DENISSE,LAZ AN 12/31 [facility] HLTH BHV IVNTJ GRP EA ADDL [id number] 1. Diagnos is: ICD-10- CM F43.12 Post-tr aumatic stress disorde r, chronic DENISSE,LAZ AN 01/07 [facility] [place] OFFICE O/P EST LOW 20 MIN [id number] Diagnos is: ICD-10- CM L60.3 Nail dystrop hy ROSS,ELPIDIO ES F 01/08 [place] [facility] PSYTX W PT 45 MINUTES 16618-7.63 1. Diagnos is: ICD-10- CM F43.12 Post-tr aumatic stress disorde r, chronic BETH,HEATHER A 01/13 [facility] OFFICE O/P EST MOD 30 MIN [id number] Diagnos is: ICD-10- CM G43.909 Migrain e, unsp, not intract able, without status migrain RAJI Vallejo IEL Y 01/19 [facility] GROUP PSYCHOTHER APY [id number] Diagnos is: ICD-10- CM F43.12 Post-tr aumatic stress disorde r, chronic DENISSE,LAZ AN 01/21 [facility] Out[facility] Encounter [id number] 01/26 [facility] OFFICE O/P EST MOD 30 MIN [id number] Diagnos is: ICD-10- CM F34.9 Persist ent mood [affect evie] disorde r, unspeci CYNTHIA Fallon SSICA E 01/26 [facility] GROUP PSYCHOTHER APY [id number] Diagnos is: ICD-10- CM F34.9 Persist ent mood [affect evie] disorde r, unspeci lance DENISSE,LAZ AN 01/28 [facility] Out[facility] Encounter [id number] 02/02 [facility] Out[facility] Encounter [id number] 02/04 [facility] PSYTX W PT 45 MINUTES [id number] Diagnos is: ICD-10- CM F34.9 Persist ent mood [affect evie] disorde r, unspeci HEATHER August 02/09 [facility] PSYTX W PT 45 MINUTES [id number] Diagnos is: ICD-10- CM F34.9 Persist ent mood [affect evie] disorde r, unspeci EHATHER August 02/23 [facility] STRESS MGMT CLASS [id number] Diagnos is: ICD-10- CM F43.12 Post-tr aumatic stress disorde r, chronic LAZ SALCEDO AN 03/04 [facility] GROUP PS[facility]CHOTHER [facility]Y [id number] Diagnos is: ICD-10- CM G62.9 Polyneu ropathy , unspeci LAZ Ghosh AN 03/11 [facility] Out[facility] Encounter [id number] 03/11 [facility] Out[facility] Encounter [id number] 03/13 [facility] STRESS MGMT CLASS [id number] Diagnos is: ICD-10- CM F34.9 Persist ent mood [affect evie] disorde r, unspeci LAZ Ghosh AN 03/18 [facility] STRESS MGMT CLASS [id number] Diagnos is: ICD-10- CM F34.9 Persist ent mood [affect evie] disorde r, unspeci shaistaLAZ Garcia AN 03/25 [facility] PSYTX W PT 45 MINUTES [id number] Diagnos is: ICD-10- CM F34.9 Persist ent mood [affect evie] disorde r, unspeci HEATHER August 03/30 [facility] OFFICE O/P EST MOD 30 MIN [id number] Diagnos is: ICD-10- CM F34.9 Persist ent mood [affect evie] disorde r, unspeci CYNTHIA FallonCA E 03/30 [facility] STRESS MGMT CLASS [id number] Diagnos is: ICD-10- CM F43.12 Post-tr aumatic stress disorde r, chronic DENISSE,LAZ AN 04/01 [facility] STRESS MGMT CLASS [id number] Diagnos is: ICD-10- CM F43.12 Post-tr aumatic stress disorde r, chronic DENISSE,LAZ AN 04/08 [facility] PSYTX W PT 45 MINUTES [id number] Diagnos is: ICD-10- CM F43.12 Post-tr aumatic stress disorde r, chronic BETH,HEATHER A 04/13 [facility] STRESS MGMT CLASS [id number] Diagnos is: ICD-10- CM F43.12 Post-tr aumatic stress disorde r, chronic DENISSE,LAZ AN 04/15 [facility] OFFICE O/P EST MOD 30 MIN [id number] Diagnos is: ICD-10- CM G43.909 Migrain e, unsp, not intract able, without status migrain RAJI Vallejo IERufino Y 04/20 [facility] Out[facility] Encounter [id number] 04[facility]20 [facility] STRESS MGMT CLASS [id number] Diagnos is: ICD-10- CM F43.12 Post-tr aumatic stress disorde r, chronic DENISSE,LAZ AN 04/22 [facility] [place]OTHER [place] [id number] Diagnos is: ICD-10- CM F43.12 Post-tr aumatic stress disorde r, chronic DENISSE,LAZ AN 04/29 [facility] PSYTX W PT 45 MINUTES [id number] Diagnos is: ICD-10- CM F43.12 Post-tr aumatic stress disorde r, chronic BETH,HEATHER A 05/04 [facility] [place] [place] [facility] Social History Combined list of available smoking, tobacco, and other social history from Department of Defense and Veterans Affairs facilities. Social History Type Response Date Comment Sourc e Tobacco smoking status [place] VA-TOBACCO USE FORMER CIGARETTES 03/30/2024 [facility] History of tobacco use VA-TOBACCO USE FORMER OTHER TYPE 03/30/2024 [facility] History of tobacco use VA-TOBACCO FORMER USER 04/15/2023 [facility] History of tobacco use VA-TOBACCO QUIT 15 YRS OR MORE 04/24/2022 [facility] History of tobacco use VA-TOBACCO QUIT 15 YRS OR MORE 04/27/2021 [facility] History of tobacco use VA-TOBACCO FORMER USER 03/17/2020 [facility] [place] [facility] History of tobacco use VA-TOBACCO QUIT 15 YRS OR MORE 03/31/2019 [facility] [place] [facility] Plan of Care List of future care activities from Department of Veterans Affairs facilities. Additional future care activities may be listed in the Assessment and Plan section. Date/Time Care Activity Care Activity Detail Facili ty 05/04/2024 AMBULATORY - PSYCHIATRY AMBULATORY - PSYC [facility]ATRY [facility] 05/04/2024 AMBULATORY - MEDICINE AMBULATORY - MEDICI [facility] 05/06/2024 AMBULATORY - PSYCHIATRY AMBULATORY - PSYC [facility]ATRY [facility] 05/13/2024 AMBULATORY - PSYCHIATRY AMBULATORY - PS[facility]C [facility]ATRY [facility] 05/14/2024 AMBULATORY - MEDICINE AMBULATORY - MEDICI [facility] 05/20/2024 AMBULATORY - PSYCHIATRY AMBULATORY - PSYC HIATRY [facility] 05/21/2024 AMBULATORY - MEDICINE AMBULATORY - MEDICI [facility] 05/25/2024 AMBULATORY - PSYCHIATRY AMBULATORY - PSYC HIATRY [facility] 05/27/2024 AMBULATORY - PSYCHIATRY AMBULATORY - PSYC [facility]ATRY [facility] 06/01/2024 AMBULATORY - PSYCHIATRY AMBULATORY - PSYC HIATRY [facility] 06/03/2024 AMBULATORY - PSYCHIATRY AMBULATORY - PSYC HIATRY [facility] 06/09/2024 AMBULATORY - PSYCHIATRY AMBULATORY - PSYC HIATRY [facility] 06/10/2024 AMBULATORY - PSYCHIATRY AMBULATORY - PSYC HIATRY [facility] 06/22/2024 AMBULATORY - PSYCHIATRY AMBULATORY - PSYC HIATRY [facility] 07/06/2024 AMBULATORY - PSYCHIATRY AMBULATORY - PSYC HIATRY [facility] 07/20/2024 AMBULATORY - NEUROLOGY AMBULATORY - NEURO LOGY [facility] 08/03/2024 AMBULATORY - MEDICINE AMBULATORY - MEDICI NE [facility] 04/27/2024 Laboratory - Window Shade Installer ry Order OCCULT BLOOD FIT X1 SCREEN (MFP ONLY) STOOL FECES SP [facility]
--- OUTSIDE RECORDS SUMMARY | 2024-05-05 07:42 | XMS_ITS | Encounter Summary ---
Author Name [facility] [place] [facility] Address [address] [place] [address] Care Team Providers Care Associate Professor Of Music Name Role Phone JOSE MANUEL PITT Primary [...] Burgess's Name Patient's Relationship to Policy Burgess [facility] PLAN MEDICARE SUPPLEMEN BETY MEDIC ARE SUPPL EMENT A Feb 18, 2022 SUPP1 [id number] [phone] GINA DE LA ROSA PATIENT [facility] MED PREFER/SEN IOR CARE MEDICARE SUPPLEMEN BETY MEDIC ARE SUPPL EMENT A Feb 18, 2021 SUPP1 [id number] GINA DE LA ROSA PATIENT Selected Encounter This section includes the information on record at [place] for the Encounter. Date/Time Encounter Type Encounter Description Reason Provider Source Mar 25, 2024 09:00 AM STRESS MGMT CLASS [facility] ICD-10-CM F34.9 Persistent mood [affective] disorder, unspecified MARIALUISA SALCEDO Encounter Template Text not used by [place] Assessments - Encounter Diagnoses This section includes the primary and secondary diagnoses documented for the Encounter. Date/Time Primary/Secondary Diagnosis Diagnosis Name Provider Source Mar 25, 2024 10:33 AM PRIMARY Persistent mood [affective] disorder, unspecified MARIALUISA SALCEDO [facility] [place] [facility] Mar 25, 2024 10:33 AM SECONDARY Post-traumatic stress disorder, chronic MARIALUISA SALCEDO [facility] [place] [facility] Plan of Treatment: Future Appointments (+ 6 months) and Future Tests (+/- 45 days) The Plan of Treatment section includes future care activities for the patient from all [place] treatment[facility] healthities. This section includes future appointments and future orders which are active, pending or scheduled. Future Appointments This section includes appointments that were scheduled to occur 6 months from the date of the Encounter, up to a maximum of 20 appointments. The data comes from all [place] treatment facilities. Appointment Date/Time Appointment Type Appointme nt Facility Name Mar 30, 2024 07:00 AM AMBULATORY - PSYCHIATRY [facility] [facility] Mar 30, 2024 01:00 PM AMBULATORY - PSYCHIATRY [facility] [place] [facility] Apr 01, 2024 09:00 AM AMBULATORY - PSYCHIATRY [facility] [place] [facility] Apr 08, 2024 09:00 AM AMBULATORY - PSYCHIATRY [facility] [place] [facility] Apr 13, 2024 07:00 AM AMBULATORY - PSYCHIATRY [facility] [place] [facility] Apr 15, 2024 09:00 AM AMBULATORY - PSYCHIATRY [facility] [place] [facility] Apr 20, 2024 09:00 AM AMBULATORY - NEUROLOGY [facility] [place] [facility] Apr 22, 2024 09:00 AM AMBULATORY - PSYCHIATRY [facility] [place] [facility] Apr 29, 2024 09:00 AM AMBULATORY - PSYCHIATRY [facility] [place] [facility] May 04, 2024 07:00 AM AMBULATORY - PSYCHIATRY [facility] [place] [facility] May 04, 2024 10:15 AM AMBULATORY - MEDICINE [facility] [place] [facility] May 06, 2024 09:00 AM AMBULATORY - PSYCHIATRY [facility] [place] [facility] May 13, 2024 09:00 AM AMBULATORY - PSYCHIATRY [facility] [place] [facility] May 14, 2024 09:30 AM AMBULATORY - MEDICINE [place] May 20, 2024 09:00 AM AMBULATORY [place]AT[place] [facility] [place] [facility] May 21, 2024 02:00 PM AMBULATORY - MEDICINE [facility] [place] [facility] May 25, 2024 07:00 AM AMBULATORY - PS[place]CHIATRY [facility] [place] [facility] May 27, 2024 09:00 AM AMBULATORY - PS[place]CHIATRY [facility] [place] [facility] Jun 01, 2024 01:00 PM AMBULATORY - PS[place]IAT[place] [facility] [place] [facility] Jun 03, 2024 09:00 AM [facility]BULAT[facility] Active, Pending, and Scheduled Orders This [...] X1 SCREEN (MFP ONLY) STOOL FECES SP [facility] Social History: Smoking Status (Most current) [...] F acility Apr 15, 2023 07:00 AM [place]-TOBACCO QU[place] 15 YRS OR MORE [facility] Apr 24, 2022 07:00 AM VA-TOBACCO FORMER USER [facility] [place] [facility] Apr 24, 2022 07:00 AM VA-TOBACCO QUIT 15 YRS OR MORE [facility] [place] [facility] Apr 27, 2021 03:00 PM VA-TOBACCO FORMER USER [facility] [place] [facility] Apr 27, 2021 03:00 PM VA-TOBACCO QUIT 15 YRS OR MORE [facility] [place] [facility] Mar 17, 2020 03:00 PM VA-TOBACCO FORMER USER [facility] [place] [facility] Mar 17, 2020 03:00 PM VA-TOBACCO QUIT 15 YRS OR MORE [facility] [place] [facility] Mar 31, 2019 09:04 AM VA-TOBACCO FORMER USER [facility] [place] [facility] Mar 31, 2019 09:04 AM VA-TOBACCO QUIT 15 YRS OR MORE [facility] [place] [facility] Encounter Notes: All associated encounter notes This section contains the clinical notes associated to the Encounter. Date/Time Encounter Note(s) Provider Source Mar 25, 2024 10:19 AM SOCIAL WORK GROUP COUNSELING NOTE: LOCAL TITLE: SOCIAL WORK GROUP NOTE STANDARD TITLE: SOCIAL WORK GROUP COUNSELING NOTE DATE OF NOTE: MAR 25, 2024@10:19 ENTRY DATE: MAR 25, 2024@10:20:11 AUTHOR: MARIALUISA SALCEDO COSIGNER: URGENCY: STATUS: COMPLETED [employer] Group Date: 03/25/24 Time: 9 AM Number of group members: Jackscrew Worker: Marialuisa Salcedo, [facility] Group began with a introduction that [...] emotions and thoughts. Today's theme was on feelings and emotions. engaged with car greaser and group members appropriately, participating in the meditation and reflection time. did not endorse SI/HI. [employer]'s intention is to center in the present moment. DIAGNOSES: Persistent mood disorder, unspecified PTSD, chronic Cognitive Disorder (History of) Cerebral Infarction, Unspecified [facility] ([facility]VC) Standard Documentation [facility] Clinician Resources Only: E911 (Emergency Call Relay Center): [phone] National Veterans Crisis Line - 988 then press #1. CWNehemias Suicide Coordinator [phone], Ext. [phone]; Back-up Ext. [phone] [place] Police, BETH, Sangeeta [phone] Introduction: Visit is being conducted by [place] [employer] [facility]. [employer] identified with 2 identifiers: [X] Full Name [X] Date of [ ] VA ID Card Emergency Plan: [employer] confirmed and/or provided the following information in case of emergency or technology failure. PATIENT PHONE - PHONE NUMBER [CELLULAR] - Is patient phone number correct, if not, enter below: 's phone number: TAJ DE LA ROSA [address], [place], [address] 's present location and address for appointment: his home [employer]'s emergency contact name and phone number: E-Cont.: JUVENCIO DE LA ROSA Relation Type: UNRELATED FRIEND/OTHER Relation Note: OTH[address] [place] [address] [facility] reported that location is private and safe: Yes Informed Consent: [employer] informed of the risks and benefits of Telehealth video care. has the right to refuse video services. If refuses video visit, a [id number] visit will be scheduled. verbalized consent for this video visit: Yes [employer] provided consent for any other persons present for visit: Yes If yes, who and relationship to patient:group Secure visit: Visit was locked for security and privacy:Yes /nicole/ REBECA CARABALLO Picture Hanger Signed: 03/25/2024 10:37 MARIALUISA SALCEDO [facility]
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
--- OUTSIDE RECORDS SUMMARY | 2024-05-05 07:42 | XMS_ITS ---
Author Name [facility] [place] [facility] [place] Organization [place] Address [address] [place] [address] Care Team Providers Care E Business Manager Name Role Phone JOSE MANUEL PITT Primary [...] Burgess's Name Patient's Relationship to Policy Burgess [facility] HEALTH PLAN MEDICARE SUPPLEMEN BETY MEDIC ARE SUPPL EMENT A Feb 18, 2022 SUPP1 [id number] GINA DE LA ROSA PATIENT [facility] MED PREFER/SEN IOR CARE MEDICARE SUPPLEMEN BETY MEDIC ARE SUPPL EMENT A Feb 18, 2021 SUPP1 [id number] GINA DE LA ROSA PATIENT Selected Encounter This section includes the information on record at MD for the Encounter. Date/Time Encounter Type Encounter Description Reason Provider Source Oct 16, 2023 09:00 AM GROUP PSYCHOTHERAPY [facility] ICD-10-CM F43.12 Post-traumati c stress disorder, chronic MARIALUISA SALCEDO Encounter Template Text not used by MD Assessments - Encounter Diagnoses This section includes the primary and secondary diagnoses documented for the Encounter. Date/Time Primary/Secondary Diagnosis Diagnosis Name Provider Source Oct 16, 2023 10:40 AM PRIMARY Post-traumatic stress disorder, chronic MARIALUISA SALCEDO [place] [facility] [place] [facility] Plan of Treatment: Future Appointments (+ 6 [...] 20 appointments. The data comes from all [place] treatment facilities. Appointment Date/Time Appointment Type Appointme nt Facility Name Oct 23, 2023 09:00 AM AMBULATORY - PS[facility]CHIATRY [facility] [place] [facility] Oct 28, 2023 07:00 AM AMBULATORY - PS[facility]CHIATRY [facility] [place] [facility] Oct 28, 2023 08:00 AM AMBULATORY - NEUROLOGY [facility] [place] [facility] Oct 28, 2023 09:30 AM AMBULATORY - PS[facility]CHIATRY [facility] [place] [facility] Oct 30, 2023 09:00 AM AMBULATORY - PSYCHIATRY [facility] [place] [facility] Nov 06, 2023 09:00 AM AMBULATORY - PSYCHIATRY [facility] [place] [facility] Nov 13, 2023 09:00 AM AMBULATORY - PSYCHIATRY [facility] [place] [facility] Nov 19, 2023 07:00 AM AMBULATORY - PSYCHIATRY [facility] [place] [facility] Nov 20, 2023 09:00 AM AMBULATORY - PSYCHIATRY [facility] [place] [facility] Nov 27, 2023 09:00 AM AMBULATORY - PSYCHIATRY [facility] [place] [facility] Dec 04, 2023 09:00 AM AMBULATORY - PSYCHIATRY [facility] [place] [facility] Dec 11, 2023 09:00 AM AMBULATORY - PSYCHIATRY [facility] [place] [facility] Dec 16, 2023 09:30 AM AMBULATORY - PSYCHIATRY [facility] [place] [facility] Dec 18, 2023 09:00 AM AMBULATORY - PSYCHIATRY [facility] [place] [facility] Dec 19, 2023 07:30 AM AMBULATORY - MEDICINE [facility] [place] [facility] Dec 23, 2023 07:00 AM AMBULATORY - PSYCHIATRY [place] [facility] [place] [facility] Dec 25, 2023 09:00 AM AMBULATORY - PSYCHIATRY [place] [facility] [place] [facility] Jan 01, 2024 09:00 AM AMBULATORY - PSYCHIATRY [place] [facility] [place] [facility] Jan 08, 2024 09:00 AM AMBULATORY - PSYCHIATRY [place] [facility] [place] [facility] Jan 09, 2024 09:30 AM [facility] Active, Pending, and Scheduled Orders This section includes a listing of several types of active, pending, and scheduled orders, including clinic medications orders, diagnostic test orders, procedure orders and consult orders; where the start date of the order is 45 days before the date of the Encounter or 45 days after the date of theEncounter. The data comes from all [place] treatment facilities. Test Date/Time Test Type Test Details Facility Name Oct 25, 2023 02:36 PM Consult Order COMMUNITY CARE-UROLOGY Cons Template Worker's Choice [facility] Oct 28, 2023 01:47 PM Consult Order COMMUNITY CARE-NEUROLOGY Cons Template [facility] [place] [facility] Social History: Smoking Status (Most current) and Tobacco Use (All prior to encounter date) This section includes the most current, and the historical, smoking and tobacco- related health factors from the [place] facility where the Encounter took place. Current Smoking Status This section includes the most current smoking, or tobacco-related health factor, from the [place] facility where the Encounter took place. Date/Time Current Smoking Status Comment Nurys ity Apr 15, 2023 07:00 AM MD-TOBACCO QUIT 15 YRS OR MORE [facility] Tobacco Use History This section includes a history of the smoking, or tobacco-related health factors, that were collected on or before the date of the Encounter. The data comes from the [place] facility where the Encounter took place. Date/Time Smoking Status/Tobacco Use Comment F acshen Apr 15, 2023 07:00 AM MD-TOBACCO QUIT 15 YRS OR MORE [facility] [place] [facility] Apr 24, 2022 07:00 AM VA-TOBACCO [facility] [place] [facility] Apr 24, 2022 07:00 AM VA-TOBACCO QUIT 15 YRS OR MORE [facility] [place] [facility] Apr 27, 2021 03:00 PM VA-TOBACCO FORMER USER [facility] [place] [facility] Apr 27, 2021 03:00 PM VA-TOBACCO QUIT 15 YRS OR MORE [facility] [place] [facility] Mar 17, 2020 03:00 PM VA-TOBACCO FORMER USER [facility] [place] [facility] Mar 17, 2020 03:00 PM VA-TOBACCO QUIT 15 YRS OR MORE [facility] [place] [facility] Mar 31, 2019 09:04 AM VA-TOBACCO FORMER USER [facility] [place] [facility] Mar 31, 2019 09:04 AM VA-TOBACCO QUIT 15 YRS OR MORE [place] [facility] [place] [facility] Encounter Notes: All associated encounter notes This section contains the clinical notes associated to the Encounter. Date/Time Encounter Note(s) Provider Source Oct 16, 2023 10:27 AM SOCIAL WORK GROUP COUNSELING NOTE: LOCAL TITLE: SOCIAL WORK GROUP NOTE STANDARD TITLE: SOCIAL WORK GROUP COUNSELING NOTE DATE OF NOTE: OCT 16, 2023@10:27 ENTRY DATE: OCT 16, 2023@10:27:46 AUTHOR: MARIALUISA SALCEDO EXP COSIGNER: URGENCY: STATUS: COMPLETED [employer] Group DATE: 10/16/23 TIME: 9 am SESSION LENGTH: 60 Number of group members: 10 Seed Yeast Operator: Marialuisa Salcedo, [facility] Group began with a introduction that [...] acceptance-based skills with difficult emotions and thoughts. shared comments, observations, and questions at the conclusion of the meditation. Today's theme was on pure awareness. engaged with office services specialist and group members appropriately, participating in the meditation and reflection time. [place] did not endorse SI/HI. [place]ag stated his intention was to relax and find balance, harmony, and well-being. DIAGNOSES: Persistent mood disorder, unspecified PTSD, chronic Cognitive Disorder (History of) Cerebral Infarction, Unspecified MD Video Connect (VVC) Standard Documentation VVC Clinician Resources Only: E911 (Emergency Call Relay Center): [phone] National Veterans Crisis Line - 988 then press #1. CWM Suicide Coordinator [phone], Ext. [phone]; Back-up Ext. [phone] MD Police, [place], [place] [phone] Introduction: Visit is being conducted by MD [employer] [facility]. identified with 2 identifiers: [X] Full Name [X] Date of [ ] VA ID Card Emergency Plan: [place] confirmed and/or provided the following information in case of emergency or technology failure. PATIENT PHONE - PHONE NUMBER [CELLULAR] - Is patient phone number correct, if not, enter below: Kenduskeag's phone number: TAJ DE LA ROSA [address], [place], [address] 's present location and address for appointment: his home 's emergency contact name and phone number: E-Cont.: JUVENCIO DE LA ROSA Relation Type: UNRELATED FRIEND/OTHER Relation Note: OTHERS [address] [place] [address] [facility] reported that location is private and safe: Yes Informed Consent: [place]ag informed of the risks and benefits of Telehealth video care. has the right to refuse video services. If refuses video visit, a eliv-vh-kvyo visit will be scheduled. [place] verbalized consent for this video visit: Yes provided consent for any other persons present for visit: Yes If yes, who and relationship to patient:group Secure visit: Visit was locked for security and privacy:Yes /nicole/ REBECA CARABALLO Proofer Prepress Signed: 10/16/2023 10:41 MARIALUISA SALCEDO [facility] [place] [facility]
--- OUTSIDE RECORDS SUMMARY | 2024-05-05 07:42 | XMS_ITS | Encounter Summary ---
Author Name [facility] [place] Address [address] [place] [address] Care Team Providers Care Transportation Manager Name Role Phone JOSE MANUEL PITT [...] Burgess's Name Patient's Relationship to Policy Burgess [facility] PLAN MEDICARE SUPPLEMEN BETY MEDIC ARE SUPPL EMENT A Feb 18, 2022 SUPP1 [id number] GINA DE LA ROSA PATIENT [facility] MED PREFER/SEN IOR CARE MEDICARE SUPPLEMEN BETY MEDIC ARE SUPPL EMENT A Feb 18, 2021 SUPP1 [id number] GINA DE LA ROSA PATIENT Selected Encounter This section includes the information on record at [place] for the Encounter. Date/Time Encounter Type Encounter Description Reason Pro vider Source IHE Encounter Template Text not used by [place]
--- OUTSIDE RECORDS SUMMARY | 2024-05-05 07:42 | XMS_ITS | Encounter Summary ---
Author Name [facility] [place] Address [address] [place] [address] Care Team Providers Care Poultry Farmer Meat Name Role Phone JOSE MANUEL PITT Primary [...] Burgess's Name Patient's Relationship to Policy Burgess [facility] HEALTH PLAN MEDICARE SUPPLEMEN BETY MEDIC ARE SUPPL EMENT A Feb 18, 2022 SUPP1 [id number] [phone] GINA DE LA ROSA PATIENT [facility] MED PREFER/SEN IOR CARE MEDICARE SUPPLEMEN BETY MEDIC ARE SUPPL EMENT A Feb 18, 2021 SUPP1 [id number] GINA DE LA ROSA PATIENT Selected Encounter This section includes the information on record at [place] for the Encounter. Date/Time Encounter Type Encounter Description Reason Provider Source Feb 24, 2024 07:00 AM PSYTX W PT 45 MINUTES MENTAL HEALTH CLINIC - IND ICD-10-CM F34.9 Persistent mood [affective] disorder, unspecified MOISES PADILLA Encounter Template Text not used by VA Assessments - Encounter Diagnoses This section includes the primary and secondary diagnoses documented for the Encounter. Date/Time Primary/Secondary Diagnosis Diagnosis Name Provider Source Feb 24, 2024 07:56 AM PRIMARY Persistent mood [affective] disorder, unspecified MOISES PADILLA [place] [facility] [place] [facility] Feb 24, 2024 07:56 AM SECONDARY Post-traumatic stress disorder, chronic MOISES PADILLA [place] [facility] [place] [facility] Feb 24, 2024 07:56 AM SECONDARY Unsp symptoms and signs w cognitive functions and awareness MOISES PADILLA [place] [facility] [place] [facility] Plan of Treatment: Future Appointments (+ 6 months) and Future Tests (+/- 45 days) The Plan of Treatment section includes future care activities for the patient from [facility] [place] [facility]. This section includes future appointments and future orders which are active, pending or scheduled. Future Appointments This section includes appointments that were scheduled to occur 6 months from the date of the Encounter, up to a maximum of 20 appointments. The data comes from all [place] treatment facilities. Appointment Date/Time Appointment Type Appointme nt Facility Name Mar 04, 2024 09:00 AM AMBULATORY - PSYCHIATRY [facility] [place] [facility] Mar 11, 2024 09:00 AM AMBULATORY - PSYCHIATRY [facility] [place] [facility] Mar 18, 2024 09:00 AM AMBULATORY - PSYCHIATRY [facility] [place] [facility] Mar 25, 2024 09:00 AM AMBULATORY - PSYCHIATRY [facility] [place] [facility] Mar 30, 2024 07:00 AM AMBULATORY - PSYCHIATRY [facility] [place] [facility] Mar 30, 2024 01:00 PM AMBULATORY - PSYCHIATRY [facility] [place] [facility] Apr 01, 2024 09:00 AM AMBULATORY - PSYCHIATRY [facility] [place] [facility] Apr 08, 2024 09:00 AM AMBULATORY - PSYCHIATRY [facility] [place] [facility] Apr 13, 2024 07:00 AM AMBULATORY - PSYCHIATRY [facility] [place] [facility] Apr 15, 2024 09:00 AM AMBULATORY - PSYCHIATRY [facility] [place] [facility] Apr 20, 2024 09:00 AM AMBULATORY - [place]OLOGY [place] [facility] [place] [facility] Apr 22, 2024 09:00 AM AMBULATORY - [...] [facility]TRL [facility] [place] [facility] Social History: Smoking Status (Most current) and Tobacco Use (All prior to encounter date) This section includes the most current, and the historical, smoking and tobacco- related health factors from the [place] facility where the Encounter took place. Current Smoking Status This section includes the most current smoking, or tobacco-related health factor, from the [place] facility where the Encounter took place. Date/Time Current Smoking Status Comment Nurys ko Apr 15, 2023 07:00 AM VA-TOBACCO FORMER USER [facility] [place] [facility] Tobacco Use History This section includes a history of the smoking, or tobacco-related health factors, that were collected on or before the date of the Encounter. The data comes from the [place] facility where the Encounter took place. Date/Time Smoking Status/Tobacco Use Comment F acshen Apr 15, 2023 07:00 AM VA-TOBACCO QUIT [...] PM VA-TOBACCO QUIT 15 YRS OR MORE [place] [facility] [place] [facility] Mar 17, 2020 03:00 PM VA-TOBACCO FORMER USER [place] [facility] [place] [facility] Mar 17, 2020 03:00 PM VA-TOBACCO QUIT 15 YRS OR MORE [place] [facility] [place] [facility] Mar 31, 2019 09:04 AM VA-TOBACCO FORMER USER [place] [facility] [place] [facility] Mar 31, 2019 09:04 AM VA-TOBACCO QUIT 15 YRS OR MORE [place] [facility] [place] [facility] Encounter Notes: All associated encounter notes This section contains the clinical notes associated to the Encounter. Date/Time Encounter Note(s) Provider Source Feb 24, 2024 06:35 AM PSYCHOLOGY NOTE: LOCAL TITLE: PSYCHOLOGY NOTE STANDARD TITLE: PSYCHOLOGY NOTE DATE OF NOTE: FEB 24, 2024@06:35 ENTRY DATE: FEB 24, 2024@06:35:43 AUTHOR: MOISES PADILLA COSIGNER: URGENCY: STATUS: COMPLETED [address] was identified by Visual recognition and patient name. VISIT DURATION 45 minutes DIAGNOSES: Persistent mood disorder, unspecified PTSD, chronic Cognitive Disorder (History of) Cerebral Infarction, Unspecified PRESENTING PROBLEMS: Aury presented on time and we resumed treatment as usual, focusing on the news about his Carlyn's biopsy results and how they are processing the news. SESSION FOCUS: At the last session, Aury had been awaiting lab results after doctors found and biopsied several lumps in his Carlyn's neck/armpit. Aury began the session with It was not good news. He explained that after waiting through [place], they eventually were told that Carlyn has Hodgkin's Lymphoma. Aury used today's session to process his emotions, fears and plans related to this worrisome news. The two still are awaiting a more informative consultation call from their physician, and were told that if they don't hear back by this Saturday, to call. They also were told that she would need to go in for a full body PET scan, in order to better understand if it has metastasized to anywhere else in her body. Empathy and validation were provided throughout, as well as encouragement for them both to find forms of distraction over the next week, while they await more answers/a treatment plan. Aury and Carlyn both appear to be trying to calm the other. Carlyn is reportedly saying that she's going to fight this thing and not showing any fear, but I know she is. And Broderick reportedly continues to show solidarity and encourage her not to talk too much with her friends about future complications. I don't want her to put the cart before the horse. We discussed the various ways that people process this information, and that her talking with her friends at length, may be helpful to her. Lastly, we discussed how Aury can continue to care for himself, at the same time as he is dedicating so much energy to her. ASSESSMENT: BRIEF ASSESSMENT OF MENTAL STATUS: [...] Denies current homicidal ideation RTCs: F2F ssns e/o/w: 0700 Tuesdays /es/ Moises Padilla PsyD Staff Psychologist Signed: 02/24/2024 07:57 OMISES PADILLA [place] [facility]
--- OUTSIDE RECORDS SUMMARY | 2024-05-05 07:42 | XMS_ITS | Encounter Summary ---
Author Name [facility] [place] Organization [place] Address [address] [place] [address] Care Team Providers Care Transmissions Systems Operator Name Role Phone JOSE MANUEL PITT [...] Name Patient's Relationship to Policy Burgess [facility] HEALTH PLAN MEDICARE SUPPLEMEN BETY MEDIC ARE SUPPL EMENT A Feb 18, 2022 SUPP1 [id number] [phone] GINA DE LA ROSA PATIENT [facility] MED PREFER/SEN IOR CARE MEDICARE SUPPLEMEN BETY MEDIC ARE SUPPL EMENT A Feb 18, 2021 SUPP1 [id number] GINA DE LA ROSA PATIENT Selected Encounter This section includes the information on record at [place] for the Encounter. Date/Time Encounter Type Encounter Description Reason Provider Source Jan 01, 2024 09:00 AM GROUP [facility] ICD-10-CM F43.12 Post-traumati c stress disorder, chronic MARIALUISA SALCEDO Encounter Template Text not used by [place] Assessments - Encounter Diagnoses This section includes the primary and secondary diagnoses documented for the Encounter. Date/Time Primary/Secondary Diagnosis Diagnosis Name Provider Source Jan 01, 2024 10:47 AM PRIMARY Post-traumatic stress disorder, chronic MARIALUISA SALCEDO [place] [facility] [place] [facility] Plan of Treatment: Future Appointments (+ 6 months) and Future Tests (+/- 45 days) The Plan of Treatment section includes future care activities for the patient from all [place] treatmentfacilities. This section includes future appointments and future orders which are active, pending or scheduled. Future Appointments This section includes appointments that were scheduled to occur 6 months from the date of the Encounter, up to a maximum of 20 appointments. The data comes from all [place] treatment facilities. Appointment Date/Time Appointment Type Appointme nt Facility Name Jan 08, 2024 09:00 AM AMBULATORY [place] [place] [facility] Jan 09, 2024 09:30 AM AMBULATORY - MEDICINE [facility] Jan 14, 2024 07:00 AM AMBULATORY [facility] PS[facility]IATRY [facility] [place] [facility] Jan 20, 2024 08:30 AM AMBULATORY [facility] NEUROLOGY [facility] [place] [facility] Jan 22, 2024 09:00 AM AMBULATORY [facility] PS[facility]IATRY [facility] [place] [facility] Jan 27, 2024 01:30 PM AMBULATORY [facility] PS[facility]IATRY [facility] [place] [facility] Jan 29, 2024 09:00 AM AMBULATORY - PS[facility]IATRY [facility] [place] [facility] Feb 05, 2024 09:00 AM AMBULATORY [facility] PS[facility]IATRY [facility] [place] [facility] Feb 10, 2024 07:00 AM AMBULATORY - PS[facility]CHIATRY [facility] [place] [facility] Feb 24, 2024 07:00 AM AMBULATORY - PS[facility]CHIATRY [facility] [place] [facility] Mar 04, 2024 09:00 AM AMBULATORY - PS[facility]CHIATRY [facility] [place] [facility] Mar 11, 2024 09:00 AM AMBULATORY - PS[facility]CHIATRY [facility] [place] [facility] Mar 18, 2024 09:00 AM AMBULATORY - PS[facility]CHIATRY [facility] [place] [facility] Mar 25, 2024 09:00 AM AMBULATORY - PSYCHIATRY [facility] [place] [facility] Mar 30, 2024 07:00 AM AMBULATORY - PS[facility]CHIATRY [facility] [place] [facility] Mar 30, 2024 01:00 PM AMBULATORY [place]RY [place] [facility] [place] [facility] Apr 01, 2024 09:00 AM AMBUL[facility] [place] [facility] Apr 08, 2024 09:00 AM AMBUL[facility] [place] [facility] Apr 13, 2024 07:00 AM AMBUL[facility] [place] [facility] Apr 15, 2024 09:00 AM AMBULATORY [place]ATRY [place] [facility] [place] [facility] Lab Results: +/- 30 days of the [...] Range Comment Dec 19, 2023 07:55 AM [facility] FOLATE (WROX) Specimen Type: SERUM No comment entered. Ordering Provider: NAV PIERRE Report Released Date/Time: Oct 28, 2023 09:59 AM Reporting Lab: [facility] [address] [facility] [address] Performing Lab: [facility] [address] [facility] [address] FOLATE (WROX) 9.07 ng/mL >5.2 Dec 19, 2023 07:55 AM [facility] TSH Specimen Type: SERUM No comment entered. Ordering Provider: NAV PIERRE Report Released Date/Time: Oct 28, 2023 09:59 AM Reporting Lab: [facility] [address] [facility] [address] Performing Lab: [facility] [address] [address] TSH 1.09 u[IU]/mL 0.35-5.00 Dec 19, 2023 07:55 AM [facility] VITAMIN B12 Specimen Type: SERUM No comment entered. Ordering Provider: NAV PIERRE Report Released Date/Time: Oct 28, 2023 09:59 AM Reporting Lab: [address] [address] Performing Lab: [address] [address] VITAMIN B12 297 pg/mL 200-900 Dec 19, 2023 07:55 AM [facility] VITAMIN D (25-OH) Specimen Type: SERUM No comment entered. Ordering Provider: NAV PIERRE Report Released Date/Time: Oct 28, 2023 09:59 AM Reporting Lab: [address] [address] Performing Lab: [address] [address] VITAMIN D (25-OH) 38 ng/mL 20-50 Dec 19, 2023 07:55 AM [facility] LIPID PANEL FASTING Specimen Type: SERUM No comment entered. Ordering Provider: NAV PIERRE Report Released Date/Time: Dec 16, 2023 09:50 AM Reporting Lab: [address] [address] Performing Lab: [address] [address] CHOLESTEROL 113 mg/dL TRIGLYCERIDE 85 mg/dL 0-150 LDL calculated 50 mg/dL 0-129 CHOL/HDL 2.5 HDL CHOLESTEROL 46 mg/dL 40-60 Dec 19, 2023 07:55 AM [facility] HEMOGLOBIN A1C PANEL Specimen Type: BLOOD [...] Dec 16, 2023 09:50 AM Reporting Lab: [facility] [address] [facility] [address] Performing Lab: [facility] [address] [address] HEMOGLOBIN A1C 5.5 4.0-5.6 Dec 19, 2023 07:55 AM [facility] BASIC METABOLIC PANEL (fasting) Specimen Type: SERUM No comment entered. Ordering Provider: NAV PIERRE Report Released Date/Time: Dec 16, 2023 09:50 AM Reporting Lab: [facility] [address] [facility] [address] Performing Lab: [facility] [address] [address] UREA NITROGEN 18 mg/dL 7-25 GLUCOSE 117 [...] 15, 2023 07:00 AM VA-TOBACCO FORMER USER [facility] Tobacco Use History This section includes a history of the smoking, or tobacco-related health factors, that were collected on or before the date of the Encounter. The data comes from the [place] facility where the Encounter took place. Date/Time Smoking Status/Tobacco Use Comment Rodney acshen Apr 15, 2023 07:00 AM VA-TOBACCO QUIT 15 YRS OR MORE [facility] Apr 24, 2022 07:00 AM VA-TOBACCO FORMER USER [facility] Apr 24, 2022 07:00 AM [place]-TO[place]ACCO QUIT 15 YRS OR MORE [facility] [place] [facility] Apr 27, 2021 03:00 PM VA-TOBACCO FORMER USER [facility] [place] [facility] Apr 27, 2021 03:00 PM VA-TOBACCO QUIT 15 YRS OR MORE [facility] [place] [facility] Mar 17, 2020 03:00 PM VA-TOBACCO FORMER USER [facility] [place] [facility] Mar 17, 2020 03:00 PM VA-TOBACCO QUIT 15 YRS OR MORE [facility] [place] [facility] Mar 31, 2019 09:04 AM VA-TOBACCO FORMER USER [facility] [place] [facility] Mar 31, 2019 09:04 AM VA-TOBACCO QUIT 15 YRS OR MORE [place] [facility] [place] [facility] Encounter Notes: All associated encounter notes This section contains the clinical notes associated to the Encounter. Date/Time Encounter Note(s) Provider Source Jan 01, 2024 10:38 AM SOCIAL WORK GROUP COUNSELING NOTE: LOCAL TITLE: SOCIAL WORK GROUP NOTE STANDARD TITLE: SOCIAL WORK GROUP COUNSELING NOTE DATE OF NOTE: JAN 01, 2024@10:38 ENTRY DATE: JAN 01, 2024@10:38:24 AUTHOR: MARIALUISA SALCEDO EXP COSIGNER: URGENCY: STATUS: COMPLETED iRest Group Date: 01/01/24 Time: 9 am Number of group members: 13 Joint Runner: Marialuisa Salcedo [facility] Group began with a introduction that iRest [...] emotions and thoughts. Today's theme was on intention and heartfelt desire. engaged with racing board marker and group members appropriately, participating in the meditation and reflection time. did not endorse SI/HI. Dallas's intention was to develop a calmer state in mind and body. DIAGNOSES: Persistent mood disorder, unspecified PTSD, chronic Cognitive Disorder (History of) Cerebral Infarction, Unspecified [facility] Video Connect (VVC) Standard Documentation VVC Clinician Resources Only: E911 (Emergency Call Relay Center): [phone] National Veterans Crisis Line - 988 then press #1. BETH Suicide Coordinator [phone], Ext. [phone]; Back-up Ext. [phone] [place] Police, Sangeeta CAMPOS [phone] Introduction: Visit is being conducted by [place] [facility]. [place] identified with 2 identifiers: [X] Full Name [X] Date of [ ] VA ID Card Emergency Plan: confirmed and/or provided the following information in case of emergency or technology failure. PATIENT PHONE - PHONE NUMBER [CELLULAR] - Is patient phone number correct, if not, enter below: Dallas's phone number: TAJ DE LA ROSA [address], [place], [address] [place]'s present location and address for appointment: his home [place]'s emergency contact name and phone number: E-Cont.: JUVENCIO DE LA ROSA Relation Type: UNRELATED FRIEND/OTHER Relation Note: OTHERS [address] [place] [address] [facility] [place] reported that location is private and safe: Yes Informed Consent: informed of the risks and benefits of Telehealth video care. [place] has the right to refuse video services. If refuses video visit, a [id number] visit will be scheduled. verbalized consent for this video visit: Yes provided consent for any other persons present for visit: Yes If yes, who and relationship to patient:group Secure visit: Visit was locked for security and privacy:Yes /nicole/ REBECA CARABALLO Sports Recruiter Signed: 01/01/2024 10:48 MARIALUISA SALCEDO [facility]
--- OUTSIDE RECORDS SUMMARY | 2024-05-05 07:42 | XMS_ITS ---
Author Name [facility] [place] Address [address] [place] [address] Care Team Providers Care Demolitionist Name Role Phone JOSE MANUEL PITT Primary [...] Burgess's Name Patient's Relationship to Policy Burgess [facility] MEDICARE SUPPLEMEN BETY MEDIC ARE SUPPL EMENT A Feb 18, 2022 SUPP1 [id number] [phone] GINA DE LA ROSA PATIENT [facility] MED PREFER/SEN IOR CARE MEDICARE SUPPLEMEN BETY MEDIC ARE SUPPL EMENT A Feb 18, 2021 SUPP1 [id number] GINA DE LA ROSA PATIENT Selected Encounter This section includes the information on record at [place] for the Encounter. Date/Time Encounter Type Encounter Description Reason Provider Source Jan 29, 2024 09:00 AM GROUP [facility]CH[facility] ICD-10-CM F34.9 Persistent mood [affective] disorder, unspecified MARIALUISA SALCEDO Encounter Template Text not used by [place] Assessments - Encounter Diagnoses This section includes the primary and secondary diagnoses documented for the Encounter. Date/Time Primary/Secondary Diagnosis Diagnosis Name Provider Source Jan 29, 2024 10:21 AM PRIMARY Persistent mood [affective] disorder, unspecified MARIALUISA SALCEDO [place] [facility] [place] [facility] Jan 29, 2024 10:21 AM SECONDARY Post-traumatic stress disorder, chronic MARIALUISA SALCEDO [place] [facility] [place] [facility] Plan of Treatment: Future Appointments (+ 6 months) and Future Tests (+/- 45 days) The Plan of Treatment section includes future care activities for the patient from all [place] [facility]. This section includes future appointments and future orders which are active, pending or scheduled. Future Appointments This section includes appointments that were scheduled to occur 6 months from the date of the Encounter, up to a maximum of 20 appointments. The data comes from all [place] treatment facilities. Appointment Date/Time Appointment Type Appointme nt Facility Name Feb 05, 2024 09:00 AM AMBULATORY - PS[facility]CHIATRY [facility] [place] [facility] Feb 10, 2024 07:00 AM AMBULATORY - PSYCHIATRY [facility] [place] [facility] Feb 24, 2024 07:00 AM AMBULATORY - PSYCHIATRY [facility] [place] [facility] Mar 04, 2024 09:00 AM AMBULATORY - PSYCHIATRY [facility] [place] [facility] Mar 11, 2024 09:00 AM AMBULATORY - PSYCHIATRY [facility] [place] [facility] Mar 18, 2024 09:00 AM AMBULATORY - PSYCHIATRY [facility] [place] [facility] Mar 25, 2024 09:00 AM AMBULATORY - PSYCHIATRY [facility] [place] [facility] Mar 30, 2024 07:00 AM AMBULATORY - PSYCHIATRY [facility] [place] [facility] Mar 30, 2024 01:00 PM AMBULATORY - PSYCHIATRY [facility] [place] [facility] Apr 01, 2024 09:00 AM AMBULATORY - PSYCHIATRY [facility] [place] [facility] Apr 08, 2024 09:00 AM AMBULATORY - PSYCHIATRY [facility] [place] [facility] Apr 13, 2024 07:00 AM AMBULATORY - PSYCHIATRY [facility] [place] [facility] Apr 15, 2024 09:00 AM AMBULATORY - PSYCHIATRY [facility] [place] [facility] Apr 20, 2024 09:00 AM AMBULATORY - NEUROLOGY [facility] [place] [facility] Apr 22, 2024 09:00 AM AMBULATORY - PSYCHIATRY [facility] [place] [facility] Apr 29, 2024 09:00 AM AMBULATORY - PSYCHIATRY [facility] [place] [facility] May 04, 2024 07:00 AM AMBULATORY - PSYCHIATRY [facility] [place] [facility] May 04, 2024 10:15 AM AMBULATORY - MEDICINE [facility] [place] [facility] May 06, 2024 09:00 AM AMBULATORY - PSYCHIATRY [facility] [place] [facility] May 13, 2024 09:00 AM AMBULATORY - PS[place]CHIATRY [place] [facility] [place] [facility] Social History: Smoking Status (Most current) and Tobacco Use (All prior to encounter date) This section includes the most current, and the historical, smoking and tobacco- related health factors from the [place] facility where the Encounter took place. Current Smoking Status This section includes the most current smoking, or tobacco-related health factor, from the [place] facility where the Encounter took place. Date/Time Current Smoking Status Comment Facil ity Apr 15, 2023 07:00 AM VA-TOBACCO FORMER USER [place] [facility] [place] [facility] Tobacco Use History This section includes a history of the smoking, or tobacco-related health factors, that were collected on or before the date of the Encounter. The data comes from the [place] facility where the Encounter took place. Date/Time Smoking Status/Tobacco Use Comment F acility Apr 15, 2023 07:00 AM VA-TOBACCO QUIT 15 YRS OR MORE [facility] [place] [facility] Apr 24, 2022 07:00 AM VA-TOBACCO FORMER USER [facility] [place] [facility] Apr 24, 2022 07:00 AM VA-TOBACCO QUIT 15 YRS OR MORE [facility] [place] [facility] Apr 27, 2021 03:00 PM VA-TOBACCO FORMER USER [facility] [place] [facility] Apr 27, 2021 03:00 PM VA-TOBACCO QUIT 15 YRS OR MORE [facility] [place] [facility] Mar 17, 2020 03:00 PM VA-TOBACCO FORMER USER [facility] [place] [facility] Mar 17, 2020 03:00 PM VA-TOBACCO QUIT 15 YRS OR MORE [facility] [place] [facility] Mar 31, 2019 09:04 AM VA-TOBACCO FORMER USER [facility] [place] [facility] Mar 31, 2019 09:04 AM VA-TOBACCO QUIT 15 YRS OR MORE [place] [facility] [place] [facility] Encounter Notes: All associated encounter notes This section contains the clinical notes associated to the Encounter. Date/Time Encounter Note(s) Provider Source Jan 29, 2024 10:07 AM SOCIAL WORK GROUP COUNSELING NOTE: LOCAL TITLE: SOCIAL WORK GROUP NOTE STANDARD TITLE: SOCIAL WORK GROUP COUNSELING NOTE DATE OF NOTE: JAN 29, 2024@10:07 ENTRY DATE: JAN 29, 2024@10:07:51 AUTHOR: MARIALUISA SALCEDO COSIGNER: URGENCY: STATUS: COMPLETED iRest Group Date: 01/29/24 Time: 9 AM Number of group members: 11 First Aid Trainer: Marialuisa Salcedo, [facility] Group began with a introduction [...] emotions and thoughts. Today's theme was on milind. engaged with wire temperer and group members appropriately, participating in the meditation and reflection time. [place] did not endorse SI/HI. 's intention was to experience milind and relaxation. DIAGNOSES: Persistent mood disorder, unspecified PTSD, chronic Cognitive Disorder (History of) Cerebral Infarction, Unspecified VA Video Connect (VVC) Standard Documentation VVC Clinician Resources Only: E911 (Emergency Call Relay Center): [phone] National Veterans Crisis Line - 988 then press #1. BETH Suicide Coordinator [phone], Ext. [phone]; Back-up Ext. [phone] [place] PoliceBETH [place] [phone] Introduction: Visit is being conducted by [place] Video Connect. identified with 2 identifiers: [X] Full Name [X] Date of [ ] VA ID Card Emergency Plan: [place] confirmed and/or provided the following information in case of emergency or technology failure. PATIENT PHONE - PHONE NUMBER [CELLULAR] - Is patient phone number correct, if not, enter below: Crouse's phone number: TAJ DE LA ROSA [address], [place], [address] 's present location and address for appointment: his home Crouse's emergency contact name and phone number: E-Cont.: JUVENCIO DE LA ROSA Relation Type: UNRELATED FRIEND/OTHER Relation Note: OTHERS [address] [place] [address] [facility] Crouse reported that location is private and safe: Yes Informed Consent: [place] informed of the risks and benefits of Telehealth video care. [place] has the right to refuse video services. If refuses video visit, a [id number] visit will be scheduled. verbalized consent for this video visit: Yes provided consent for any other persons present for visit: Yes If yes, who and relationship to patient:group Secure visit: Visit was locked for security and privacy:Yes /nicole/ REBECA CARABALLO Solderer Assembler Signed: 01/29/2024 10:21 MARIALUISA SALCEDO [facility]
--- OUTSIDE RECORDS SUMMARY | 2024-05-05 07:42 | XMS_ITS | Clinical Summary ---
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 [id number] Health Maintenance Due Date Last Done Comments [...] AM EDT) Hemoglobin A1C 5.9(H) (4.0-5.6) % [facility] Comment: MONITORING: In known diabetic patients, hemoglobin A1c targets should be discussed with health care provider. DIAGNOSTIC USE: ??The [place] [employer] (ADA) and the World Health [...] Supplement 1 Testing performed or reported by [facility] Reference [employer], a Service of [facility], [address] [place] [id number] Larry Syed MD, Archeologist [facility] SIRISHA# [id number] Blood (Blood, Venous) 07/25/2022 10:20 AM EDT 07/25/2022 10:48 AM EDT Calvin LOUIE LAB BLOOD ORDERABLES Final Re sult [facility] Organization Address City/State/ZIP Co de Phone Number [facility] from Last 3 Months or Most Recently Relevant to Health Maintenance Insurance MEDICARE [facility] Care Teams Allergist/Immunologist Relationship Specialty Start Date End Date Luis F Lozada DO [address] [facility] [address] [place] [address] PCP - General Internal Medicine 02/03/21
--- OUTSIDE RECORDS SUMMARY | 2024-05-05 07:42 | XMS_ITS | Encounter Summary ---
Author Name [facility] [place] [facility] [place] Address [address] [place] [address] Care Team Providers Care Assisted Living Executive Director Name Role Phone JOSE MANUEL PITT Primary [...] Burgess's Name Patient's Relationship to Policy Burgess [facility] HEALTH PLAN MEDICARE SUPPLEMEN BETY MEDIC ARE SUPPL EMENT A Feb 18, 2022 SUPP1 [id number] GINA DE LA ROSA PATIENT [facility] MED PREFER/SEN IOR CARE MEDICARE SUPPLEMEN BETY MEDIC ARE SUPPL EMENT A Feb 18, 2021 SUPP1 [id number] GINA DE LA ROSA PATIENT Selected Encounter This section includes the information on record at [place] for the Encounter. Date/Time Encounter Type Encounter Description Reason Provider Source Jan 09, 2024 09:30 AM OFFICE O/P EST LOW 20 MIN PODIATRY ICD-10-CM L60.3 Nail dystrophy ASHLEIGH QUINTEROS Encounter Template Text not used by [facility] Assessments - Encounter Diagnoses This section includes the primary and secondary diagnoses documented for the Encounter. Date/Time Primary/Secondary Diagnosis Diagnosis Name Provider Source Apr 02, 2024 12:55 PM PRIMARY Nail dystrophy ASHLEIGH QUINTEROS [place] Apr 02, 2024 12:55 PM SECONDARY Corns and callosities ASHLEIGH QUINTEROS [place] Apr 02, 2024 12:55 PM SECONDARY Pain in left foot ASHLEIGH QUINTEROS [place] Apr 02, 2024 12:55 PM SECONDARY Pain in left toe(s) ASHLEIGH QUINTEROS [place] Apr 02, 2024 12:55 PM SECONDARY Pain in right foot ASHLEIGH QUINTEROS [place] Apr 02, 2024 12:55 PM SECONDARY Pain in right toe(s) ASHLEIGH QUINTEROS [place] Apr 02, 2024 12:55 PM SECONDARY Type 2 diabetes w diabetic peripheral angiopath w/o gangrene ASHLEIGH QUINTEROS [place] Plan of Treatment: Future Appointments (+ 6 months) and Future Tests (+/- 45 days) The Plan of Treatment section includes future care activities for the patient from all [place] [facility]. This section includes future appointments and future orders which are active, pending or scheduled. Future Appointments This section includes appointments that were scheduled to occur 6 months from the date of the Encounter, up to a maximum of 20 appointments. The data comes from all [place] treatment facilities. Appointment Date/Time Appointment Type Appointme nt Facility Name Jan 14, 2024 07:00 AM AMBULATORY - [place]AT[facility] [place] [facility] Jan 20, 2024 08:30 AM AM[place]ORY [place] [facility] [facility] Jan 22, 2024 09:00 AM [place]UL[place]ORY [place] [facility] [facility] Jan 27, 2024 01:30 PM AMBULATORY - PS[facility]CHIATRY [facility] [place] [facility] Jan 29, 2024 09:00 AM AMBULATORY - PS[facility]CHIATRY [facility] [place] [facility] Feb 05, 2024 09:00 AM AMBULATORY - [facility]IATRY [facility] [place] [facility] Feb 10, 2024 07:00 AM AMBULATORY - [facility]IATRY [facility] [place] [facility] Feb 24, 2024 07:00 AM AMBULATORY - PS[facility]CHIATRY [facility] [place] [facility] Mar 04, 2024 09:00 AM AMBULATORY - [facility]CHIATRY [facility] [place] [facility] Mar 11, 2024 09:00 AM AMBULATORY - [facility]CHIATRY [facility] [place] [facility] Mar 18, 2024 09:00 AM AMBULATORY - [...] PSYCHIATRY [facility] [place] [facility] Apr 20, 2024 09:00 AM AM[facility]ULATORY - [facility]UROLOGY [facility] [place] [facility] Apr 22, 2024 09:00 AM AMBULATORY - [facility]IATRY [facility] [place] [facility] Lab Results: +/- 30 days of the [...] Range Comment Dec 19, 2023 07:55 AM [facility] FOLATE (WR[place]) Specimen Type: SERUM No comment entered. Ordering Provider: NAV PIERRE Report Released Date/Time: Oct 28, 2023 09:59 AM Reporting Lab: [facility] [address] [facility] [address] Performing Lab: [facility] [address] [facility] [address] FOLATE (WROX) 9.07 ng/mL >5.2 Dec 19, 2023 07:55 [facility] TSH Specimen Type: SERUM No comment entered. Ordering Provider: NAV PIERRE Report Released Date/Time: Oct 28, 2023 09:59 AM Reporting Lab: [address] [address] [facility]forming [facility]: [facility] [address] [address] TSH 1.09 u[IU]/mL 0.35-5.00 Dec 19, 2023 07:55 AM [facility] VITAMIN B12 Specimen Type: SERUM No comment entered. Ordering Provider: NAV PIERRE Report Released Date/Time: Oct 28, 2023 09:59 AM Reporting Lab: [address] [address] Performing Lab: [address] [address] VITAMIN B12 297 pg/mL 200-900 Dec 19, 2023 07:55 AM [facility] VITAMIN D (25-OH) Specimen Type: SERUM No comment entered. Ordering Provider: NAV PIERRE Report Released Date/Time: Oct 28, 2023 09:59 AM Reporting Lab: [address] [address] Performing Lab: [address] [address] VITAMIN D (25-OH) 38 ng/mL 20-50 Dec 19, 2023 07:55 AM [facility] HEMOGLOBIN A1C PANEL Specimen Type: BLOOD Comment: [...] Dec 16, 2023 09:50 AM Reporting Lab: [address] [address] Performing Lab: [facility] [address] [facility] [address] HEMOGLOBIN A1C 5.5 4.0-5.6 Dec 19, 2023 07:55 AM [facility] LIPID PANEL FASTING Specimen Type: SERUM No comment entered. Ordering Provider: NAV PIERRE Report Released Date/Time: Dec 16, 2023 09:50 AM Reporting Lab: [facility] [address] [facility] [address] Performing Lab: [facility] [address] [facility] [address] CHOLESTEROL 113 mg/dL TRIGLYCERIDE 85 mg/dL 0-150 LDL calculated 50 mg/dL 0-129 CHOL/HDL 2.5 HDL CHOLESTEROL 46 mg/dL 40-60 Dec 19, 2023 07:55 AM [facility] BASIC METABOLIC PANEL (fasting) Specimen Type: SERUM No comment entered. Ordering Provider: NAV PIERRE Report Released Date/Time: Dec 16, 2023 09:50 AM Reporting Lab: [facility] [address] [facility] [address] Performing Lab: [address] [address] UREA NITROGEN 18 mg/dL 7-25 GLUCOSE 117 mg/dL H 65-100 SODIUM 141 mmol/L 135-145 POTASSIUM 4.3 mmol/L 3.5-5.0 CHLORIDE 107 mmol/L 100-110 CO2 25 meq/L 20-30 CREATININE, Serum 0.98 mg/dL 0.50-1.40 eGFR(CKD-EPI 2020) 85 mL/min >60 Encounter Notes: All associated encounter notes This section contains the clinical notes associated to the Encounter. Date/Time Encounter Note(s) Provider Source Jan 09, 2024 07:30 AM PODIATRY NOTE: LOCAL TITLE: PODIATRY NOTE STANDARD TITLE: PODIATRY NOTE DATE OF NOTE: JAN 09, 2024@07:30 ENTRY DATE: JAN 09, 2024@07:30:20 AUTHOR: ASHLEIGH QUINTEROS EXP COSIGNER: URGENCY: STATUS: COMPLETED LAST SEEN: INITIAL CONSULT VISIT 08/21/2023 S: Pt. is a 68 yo alert WDWN CAUC MALE who IS SEEN for CONTINUED podiatric examination & CARE for treatment of a presenting complaint of painful THICK INGROWN TOENAILS & CALLUS IN THE PRESENCE OF DIGITAL AMPUTATIONS PER PCP. Patient has TYPE II DM & POLY NEUROPATHY & is at risk of injury with self or other non-professional care. Patient has been referred by: JOSE MANUEL PITT Location of symptoms are: nails 2-3-4-5 RT and 3-4-5 LT-OTHER TOES HAVE BEEN AMPUTATED Onset of symptoms has been several WEEKS due to this being a recurrent condition that has been exacerbating over the past few weeks. Duration of symptoms is daily with periods of exacerbation and remission. Description of symptoms is of a PRESENCE THAT NEEDS PROFESSIONAL CARE DUE TO PREVIOUS AMPUTATIONS IN THE PRESENCE OF PVD & NEUROPATHY BILATERAL. Contributing factors are: shoes and increased activity. PMH: Active problems - Computerized Problem List is the source for the following: *NOTE: REVIEWED ABOVE, NOTING NON-CONTRIBUTORY TO THE CC OTHER THAN THE PRESENCE OF TYPE II DM AND POLYNEUROPATHY WITH AMPUTATIONS OF TOES *NOTE: PLEASE SEE PROBLEM LIST TEMPLATE FOR COMPLETE LIST NEEDED. Family History: Non-contributory Social History: N/A *NOTE: DENIES ANY RECENT CHANGES IN MEDS UPON QUESTIONING TODAY-SEE RECONCILIATION PERFOMED THIS DATE BELOW TOBACCO USE = NONE Allergies:METFORMIN Previous Surgery/Hospitalization: N/A TO THE CC *NOTE: A1C=5.5 (LAST TAKEN: 11/2023) FBS=92 RISK=3 HEIGHT:246.4 lb [111.77 kg] (07/29/2023 08:13) WEIGHT:71 in [180.3 cm] (07/29/2023 08:13) REVIEW OF SYSTEMS: DEFERRED BEING NON-CONTRIBUTORY TO THE CC & I HAVE REVIEWED THE PCP NOTES & PMH WELL. O: DERMATOLOGICAL: Exam reveals skin color, TEMP. & text to be WNL. There is absence of hair noted. Nails are thickened yellow-brown discolored and displaying flakiness, crumbling, sub-ungual debris and rubor in the affected nail grooves. The affected nails are 2-3-4-5 RT & 3-4-5 LT. There are superficial hyperkeratotic lesions noted at this time located at the following sites: PLANTAR 1ST & 2ND MPJ LEFT AND PLANTAR 1ST MPJ RT. There are no rashes, ulcers, indurations or nodules noted. VASCULAR: Exam reveals DP & PT pulses to be absent non-palpable bilateral. CFT is < 3 sec x 10. There are no superficial varices noted and there is no edema noted. MUSCULOSKELETAL: Exam reveals muscle strength and tone to be equal & symmetrical bilaterally & diminished for an individual of this age and present physical- medical condition. There is pain free ROM at all joints distal to and including the ankle. WEARS A DROP FOOT BRACE RT AND HAS AMPUTATION HALLUX RT AND 1-2 LEFT. NEUROLOGICAL: Exam reveals S/D, vibratory, light touch & proprioception sensations to be equal & symmetrical bilaterally & WNL/diminished for an individual of this age and present physical-medical status. Protective sensation utilizing a [place] lOg monofilament is 9/10RT & 8/10 LEFT. BIOMECHANICAL: Exam is deferred at this time due to the presence of pain/ as non-contributory to the cc . A: Clinical Impression is onychocryptic clinically mycotic dystrophic nails in the presence of [id number]. P: Treatment consists of debridement-reduction of all nails via manual & electric means with excision of the offending nail borders and thinning of the nail plates to the point of imminent bleeding. Additional treatment consists of surgical PARING-debridement of all hyperkeratosis utilizing sharp dissection WITH A STERILE # 10 SCALPEL. All care rendered without complications & the patient is progressing well after podiatric care this date and will be scheduled for periodic podiatric care in an attempt to prevent future complications due to the underlying medical conditions. Treatment by a non-professional could be extremely hazardous to the patient's wellbeing due to the underlying medical conditions. Return to Clinic: 20Weeks(05/14 @ 9:30) *DISCUSSED NEW PROTOCOLS AND CALLED MAKAYLA TODAY FOR RESCHEDULING I DISCUSSED THE FINDINGS & PLAN WITH PATIENT (UNCHANGED SINCE PREVIOUS VISIT) & PATIENT AGREES AND UNDERSTANDS PLAN DISCUSSED THANKSGIVING WITH FAMILY AND CONCERNS ABOUT SOMEONE WHO DID BLACKTOP BUT NOT PROPERLY & STILL HAVE CRACKS DISCUSSED USING BAG BALM 1ST MPJ LEFT UNDER OCCLUSION IN AN ATTEMPT TO PREVENT FISURING OF SKIN Medication Reconciliation: PERFORMED TODAY - SEE BELOW. Outpatient: Has the patient been taking medications as documented in the EMLR? YES: The patient has been taking medications as documented in the EMLR. Essential Medication List for Review used to complete this medication reconciliation. INCLUDED IN THIS LIST: Alphabetical list of active outpatient prescriptions dispensed from this VA (local) and dispensed from another VA or DoD facility (remote) as well as [...] Remote Allergy/ADR Data available for this [facility] METFORMIN Med Recon NoGlossary (Tool #1) INCLUDED IN THIS LIST: Alphabetical list of active outpatient prescriptions dispensed from this VA (local) and dispensed from another [place] or DoD facility (remote) as well as inpatient orders (local pending and active), local clinic medications, locally documented non-VA medications, and local prescriptions that have or been discontinued in the past 90 days. Non-VA Meds Last Documented On: Jul 29, 2023 NOTE The display of VA prescriptions dispensed from another VA or DoD facility (remote) is limited to active outpatient prescription entries matched to National Drug File at the originating site and may not include some items such as investigational drugs, compounds, etc. NOT INCLUDED IN THIS LIST: Medications self-entered by the patient into personal health records (i.e. [employer]) are NOT included in this list. Non-VA medications documented outside this [place], remote inpatient orders (regardless of status) and [...] FOR DRY IRRITATED SKIN UNDER OCCLUSION Rx# [id number] Last Released: 08/23/23 Qty/Days Supply: 240/60 Rx Expiration Date: 08/21/24 Refills Remainin Indication: FOR DRY SKIN OUTPT ARMODAFINIL 50MG TAB (Status = Discontinued) TAKE ONE TABLET BY MOUTH EVERY MORNING FOR 4 DAYS, THEN TAKE TWO TABLETS EVERY MORNING Rx# [id number] Last Released: 10/28/23 Qty/Days Supply: 56/30 Rx Expiration Date: 11/27/23 Refills Remainin Indication: TO IMPROVE WAKEFULNESS OUTPT ARMODAFINIL 50MG TAB (Status = Discontinued) TAKE TWO TABLETS BY MOUTH EVERY MORNING TO IMPROVE WAKEFULNESS Rx# [id number] Last Released: 11/26/23 Qty/Days Supply: 6030 Rx Expiration Date: 05/27/24 Refills Remainin Indication: TO IMPROVE WAKEFULNESS OUTPT ARMODAFINIL 50MG TAB (Status = Active) TAKE TWO TABLETS BY MOUTH EVERY MORNING Rx# [id number] Last Released: 12/24/23 Qty/Days Supply: 6030 Rx Expiration Date: 06/17/24 Refills Remainin Indication: TO IMPROVE WAKEFULNESS Non-VA ATORVASTATIN CALCIUM 80MG TAB TAKE ONE TABLET BY MOUTH ONCE DAILY Medication prescribed by Non-VA provider. per neurology notes 12/29/2018 - OUTPT BREXPIPRAZOLE 1MG TAB (Status = Active) TAKE ONE TABLET BY MOUTH ONCE DAILY Rx# [id number] Last Released: 12/18/23 Qty/Days Supply: Rx Expiration Date: 12/16/24 Refills Remainin Indication: MOOD OUTPT BREXPIPRAZOLE 2MG TAB (Status = Discontinued) TAKE ONE TABLET BY MOUTH ONCE DAILY FOR MOOD DOSE INCREASE Rx# [id number] Last Released: 09/23/23 Qty/Days Supply: Rx Expiration Date: 09/19/24 Refills Remainin Indication: MOOD OUTPT CLONIDINE HCL 0.1MG TAB (Status = Discontinued) TAKE ONE TABLET BY MOUTH AT BEDTIME FOR INSOMNIA Rx# [id number] Last Released: 09/02/23 Qty/Days Supply: Rx Expiration Date: 05/23/24 Refills Remainin Indication: INSOMNIA OUTPT CLONIDINE HCL 0.1MG TAB (Status = Active) TAKE ONE TABLET BY MOUTH AT BEDTIME FOR INSOMNIA Rx# [id number] Last Released: 11/26/23 Qty/Days Supply: Rx Expiration Date: 11/25/24 Refills [...] FOR 12 HOURS, THEN REMOVE PATCH) Rx# [id number] Last Released: 07/30/23 Qty/Days Supply: Rx Expiration [...] ONE TABLET BY MOUTH ONCE DAILY Rx# [id number] Last Released: Qt Supply: Rx Expiration Date: 10/23/24 Refills Remainin Non-VA OMEPRAZOLE 20MG EC CAP TAKE 2 CAPSULES BY MOUTH ONCE DAILY Medication prescribed by Non-VA provider. per neurology notes 12/29/2018 - OUTPT ONABOTULINUMTOXINA 200 UNIT/FRANCISCO J INJ (Status = Active) INJECT DIRECTED INTRAMUSCULARLY EVERY THREE MONTHS FOR MIGRAINE HEADACHES Rx# [id number] Last Released: 10/07/23 Qty/Days Supply: Rx Expiration [...] BY MOUTH AT BEDTIME FOR INSOMNIA Rx# [id number] Last Released: 09/30/23 Qty/Days Supply: Rx Expiration Date: 05/23/24 Refills Remainin Indication: INSOMNIA OUTPT TRAZODONE HCL 100MG TAB (Status = Active) TAKE TWO TABLETS BY MOUTH AT BEDTIME FOR INSOMNIA Rx# [id number] Last Released: 12/11/23 Qty/Days Supply: Rx Expiration Date: 11/25/24 Refills Remainin Indication: INSOMNIA OUTPT TROSPIUM CL 20MG TAB (Status = Discontinued) TAKE ONE TABLET BY MOUTH TWICE DAILY ON AN EMPTY STOMACH Rx# [id number] Last Released: 09/24/23 Qty/Days Supply: Rx Expiration Date: 08/23/24 Refills Remainin OUTPT TROSPIUM CL 20MG TAB (Status = Active) TAKE ONE TABLET BY MOUTH TWICE DAILY ON AN EMPTY STOMACH Rx# [id number] Last Released: 12/23/23 Qty/Days Supply: 60/30 Rx Expiration Date: 10/28/24 Refills Remainin SUPPLIES /nicole/ ASHLEIGH QUINTEROS DPM NATIONAL INVESTIGATIVE PRODUCER Signed: 01/09/2024 10:03 ASHLEIGH QUINTEROS
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
--- OUTSIDE RECORDS SUMMARY | 2024-05-05 07:43 | XMS_ITS | Encounter Summary ---
Author Name [facility] [place] [facility] [place] Organization [facility] [place] Address [address] [place] [address] Care Team Providers Care School Crossing Guard Supervisor Name Role Phone JOSE MANUEL PITT Primary [...] SUPPL EMENT A Feb 18, 2022 SUPP1 [id number] GINA DE LA ROSA PATIENT [facility] PREFER/SEN IOR CARE MEDICARE SUPPLEMEN BETY MEDIC ARE SUPPL EMENT A Feb 18, 2021 SUPP1 [id number] GINA DE LA ROSA PATIENT Selected Encounter This section includes the information on record at [place] for the Encounter. Date/Time Encounter Type Encounter Description Reason Provider Source Sep 09, 2023 05:00 PM OFFICE O/P EST MOD 30 MIN [facility] - IND ICD-10-CM F34.9 Persistent mood [affective] disorder, unspecified [employer] Encounter Template Text not used by [place] Assessments - Encounter Diagnoses This section includes the primary and secondary diagnoses documented for the Encounter. Date/Time Primary/Secondary Diagnosis Diagnosis Name Provider Source Sep 10, 2023 03:50 PM PRIMARY Persistent mood [affective] disorder, unspecified LACHELLE PIERREGUY Chan [place] [facility] [place] [facility] Sep 10, 2023 03:50 PM SECONDARY Post-traumatic stress disorder, chronic IGNACIONAV Chan [place] [facility] [place] [facility] Plan of Treatment: Future Appointments (+ 6 months) and Future Tests (+/- 45 days) The Plan of Treatment section includes future care activities for the patient from all [place] [facility] This section includes future appointments and future orders which are active, pending or scheduled. Future Appointments This section includes appointments that were scheduled to occur 6 months from the date of the Encounter, up to a maximum of 20 appointments. The data comes from all [place] treatment facilities. Appointment Date/Time Appointment Type Appointme nt Facility Name Sep 11, 2023 09:00 AM AMBULATORY - [facility]IATRY [facility] [place] [facility] Sep 19, 2023 01:30 PM AMBULATORY - PS[facility]CHIATRY [facility] [place] [facility] Sep 25, 2023 09:00 AM AMBULATORY - PS[facility]CHIATRY [facility] [place] [facility] Sep 30, 2023 07:00 AM AMBULATORY - PS[facility]CHIATRY [facility] [place] [facility] Oct 02, 2023 09:00 AM AMBULATORY - PS[facility]CHIATRY [facility] [place] [facility] Oct 09, 2023 09:00 AM AMBULATORY - PS[facility]CHIATRY [facility] [place] [facility] Oct 16, 2023 09:00 AM AMBULATORY - PS[facility]CHIATRY [facility] [place] [facility] Oct 23, 2023 09:00 AM AMBULATORY - PS[facility]CHIATRY [facility] [place] [facility] Oct 28, 2023 07:00 AM AMBULATORY - PS[facility]CHIATRY [facility] [place] [facility] Oct 28, 2023 08:00 AM AMBULATORY - NEUROLOGY [facility] [place] [facility] Oct 28, 2023 09:30 AM AMBULATORY - PS[facility]CHIATRY [facility] [place] [facility] Oct 30, 2023 09:00 AM AMBULATORY - PS[facility]CHIATRY [facility] [place] [facility] Nov 06, 2023 09:00 AM AMBULATORY - PS[facility]CHIATRY [facility] [place] [facility] Nov 13, 2023 09:00 AM AMBULATORY - PSYCHIATRY [facility] [place] [facility] Nov 19, 2023 07:00 AM AMBULATORY - PSYCHIATRY [facility] [place] [facility] Nov 20, 2023 09:00 AM AMBULATORY - PSYCHIATRY [facility] [place] [facility] Nov 27, 2023 09:00 AM AMBULATORY - PSYCHIATRY [facility] [place] [facility] Dec 04, 2023 09:00 AM AMBULATORY - PSYCHIATRY [facility] [place] [facility] Dec 11, 2023 09:00 AM AMBULATORY - PS[facility]CHIATRY [facility] [place] [facility] Dec 16, 2023 09:30 AM AMBULATORY - [place]ATRY [place] [facility] [place] [facility] Social History: Smoking Status (Most current) and Tobacco Use (All prior to encounter date) This section includes the most current, and the historical, smoking and tobacco- related health factors from the [place] facility where the Encounter took place. Current Smoking Status This section includes the most current smoking, or tobacco-related health factor, from the [place] facility where the Encounter took place. Date/Time Current Smoking Status Comment Facil ity Apr 15, 2023 07:00 AM VA-TOBACCO FORMER USER [place] [facility] [place] [facility] Tobacco Use History This section includes a history of the smoking, or tobacco-related health factors, that were collected on or before the date of the Encounter. The data comes from the [place] facility where the Encounter took place. Date/Time Smoking Status/Tobacco Use Comment F acility Apr 15, 2023 07:00 AM VA-TOBACCO QUIT 15 YRS OR MORE [facility] [place] [facility] Apr 24, 2022 07:00 AM VA-TOBACCO FORMER USER [facility] [place] [facility] Apr 24, 2022 07:00 AM VA-TOBACCO QUIT 15 YRS OR MORE [facility] [place] [facility] Apr 27, 2021 03:00 PM VA-TOBACCO FORMER USER [facility] [place] [facility] Apr 27, 2021 03:00 PM VA-TOBACCO QUIT 15 YRS OR MORE [facility] [place] [facility] Mar 17, 2020 03:00 PM VA-TOBACCO FORMER USER [place] [facility] [place] [facility] Mar 17, 2020 03:00 PM VA-TOBACCO QUIT 15 YRS OR MORE [place] [facility] [place] [facility] Mar 31, 2019 09:04 AM VA-TOBACCO FORMER USER [place] [facility] [place] [facility] Mar 31, 2019 09:04 AM VA-TOBACCO QUIT 15 YRS OR MORE [place] [facility] Encounter Notes: All associated encounter notes This section contains the clinical notes associated to the Encounter. Date/Time Encounter Note(s) Provider Source Sep 09, 2023 05:05 PM PSYCHIATRY NOTE: LOCAL TITLE: PSYCHIATRY NOTE STANDARD TITLE: PSYCHIATRY NOTE DATE OF NOTE: SEP 09, 2023@17:05 ENTRY DATE: SEP 09, 2023@17:05:54 AUTHOR: SALLY PIERRE COSIGNER: URGENCY: STATUS: COMPLETED PSYCHIATRY FOLLOW UP VISIT TAJ DE LA ROSA is a 67yo MARITAL STATUS - WHITE MALE with a history of [employer] FROM Nov TO Nov INTERVAL HISTORY Increased brexpiprazole from 1mg to 2mg with no side effects about 1 week. About 3 days later felt his mood improved, less depressed. Prior to that had been feeling quite depressed, but also quite activated physically, jumping from project to project and not able to finish each one I was running around like a chicken with my head cut off. My mind would not shut down. He made a long list of jobs he had to do. Mood was highs and lows. In the past few days has been resting more, and walking more. Has not focused on any projects. Spirits could be better. No interest in doing things he usually enjoys--gardening, working outside. He also feels like he spinning his wheels not able to accomplish anything. Has been waking up at 3am in the past 2 weeks. Partly it is his dog who wakes up then. Goes to bed at 8:30pm. Energy fluctuates. Denies any SI. Though sometimes has a desire to escape his situation. He continues to socialize, he went to a jew picnic recently. He was able to enjoy this. They will be going away this weekend for their anniversary. CURRENT MEDICATIONS Active Outpatient Medications (including Supplies): AMMONIUM LACTATE 12% LOTION APPLY SMALL AMOUNT TOPICALLY ACTIVE AT BEDTIME FOR DRY IRRITATED SKIN UNDER OCCLUSION BREXPIPRAZOLE 1MG TAB TAKE ONE TABLET BY MOUTH ONCE DAILY ACTIVE FOR MOOD CLONIDINE HCL 0.1MG TAB TAKE ONE TABLET BY MOUTH AT ACTIVE BEDTIME FOR INSOMNIA LIDOCAINE 5% PATCH APPLY 1 PATCH TOPICALLY EVERY 12 HOURS ACTIVE NEEDED FOR NERVE PAIN (LEAVE PATCH ON FOR 12 HOURS, THEN REMOVE PATCH) ONABOTULINUMTOXINA 200 UNIT/FRANCISCO J INJ INJECT DIRECTED HOLD INTRAMUSCULARLY EVERY THREE MONTHS FOR MIGRAINE HEADACHES TRAZODONE HCL 100MG TAB TAKE TWO TABLETS BY MOUTH AT ACTIVE BEDTIME FOR INSOMNIA TROSPIUM CL 20MG TAB TAKE ONE TABLET BY MOUTH TWICE DAILY ACTIVE ON AN EMPTY STOMACH Non-VA AMLODIPINE BESYLATE 5MG TAB 5MG BY MOUTH ONCE DAILY ACTIVE Non-VA ATORVASTATIN CALCIUM 80MG TAB 80MG BY [...] Problem Cognitive disorder R41.9 12/13/2022 SALLY PIERRE E Hypoglycaemia E16.2 04/30/2022 SWEETIEJOSE MANUEL DSOUZA Mood disorder F34.9 11/21/2021 SALLY PIERRE E Migraine G43.909 01/30/2021 MIGUEL CARRILLO Hemiparesis I69.959 10/07/2020 MIGUEL CARRILLO Polyneuropathy G62.9 03/23/2020 MIGUEL CARRILLO Posttraumatic stress disorder F43.1 08/07/2019 CATRACHITA MENDEZ Conversion disorder R69. 04/19/2019 KIRK COTTRELL Hypertension F54. 05/19/2019 CATRACHITA MENDEZ DM - Diabetes mellitus E11.9 05/07/2019 CARDONA,RAKARMEN GRIFFIN Gastro-esophageal reflux R69. 04/19/2019 KIRK COTTRELL Chronic renal disease N18.9 07/03/2019 CATRACHITA MENDEZ History of lacunar cerebrovascular 05/07/2019 CARDONA,MACARIO GRIFFIN Thoracic post-laminectomy syndrome 06/19/2019 CATRACHITA MENDEZ History of surgery R69. 04/19/2019 KIRK COTTRELL Under care of multiple providers R6 04/15/2019 KIRK COTTRELL BMI: 34.4 PREVIOUS PSYCHIATRIC MEDICATION TRIALS AND RESPONSE Ambien--sleepwalking Fluoxetine Bupropion Trazodone melatonin not helpful Hydroxyzine--not helpful, maybe with sleepwalking Aripiprazole--helpful for depression, some initial activation. +blurry vision and urinary frequency. Lurasidone 20mg not helpful for mood. Brexpiprazole 1mg--helpful for mood, but now with possible TD in left foot MENTAL STATUS EXAM: Awake, alert, calm, cooperative, well groomed, dressed appropriately, wearing a cap. Glasses, jay. Not restless. Left foot is restless and moving periodically. Sitting with . No acute distress. Pleasant. Speech nml r/r/r/v/p. Not pressured, loud, or fast. Mood mildly dysphoric Affect: constricted Thought Process Linear, logical, coherent Thought Content: [...] suicide attempt in 2005 and hospitalization at [facility] (overdose on morphine), also with an unclear [...] dose of trazodone, but continued to have lab assistant awakening which resolved with addition of clonidine at bedtime. Other pertinent medical hx includes CAD, s/p OR, s/p stents. Poorly controlled DM. Neuropathy, chronic [...] Neuropsych testing scheduled for 09/[address] Mcfadden DIAGNOSIS: I. Mood Disorder II. Chronic PTSD [...] appeared after the functional strokes. PLAN -continue brexpiprazole 2 mg daily. Monitor TD symptoms--Left Foot. -continue trazodone 200 mg nightly -continue clonidine [...] of active outpatient prescriptions dispensed from this [place] (local) and dispensed from another VA or [...] provider. Problem List was reviewed and updated. [facility] Connect (VVC) Standard Documentation VVC Clinician Resources Only: E911 (Emergency Call Relay Center): [phone] [facility] Crisis Line - (0-345-592-PRBT) press #1. BETH Suicide Coordinator ? [phone], Ext. [phone]; Back-up Ext. [phone] Investment Banking Analyst of the Day(AOD), Sangeeta CAMPOS ? [phone], Ext. [phone] Introduction: Visit is being conducted by [employer] [facility]. [place] identified with 2 identifiers: [X] Full Name [X] Date of [ ] VA ID Card Emergency Plan: [place] confirmed and/or provided the following information in case of emergency or technology failure. 's present location and address for appointment: Located at home address as in CPRS 's emergency contact name and phone number: Emergency contact as per listed in chart [place] reported that location is private and safe: Yes Informed Consent: informed of the risks and benefits of Telehealth video care. has the right to refuse video services. If refuses video visit, a [id number] visit will be scheduled. verbalized consent for this video visit: Yes provided consent for any other persons present for visit: Yes If yes, who and relationship to patient: Secure visit: Visit was locked for security and privacy:Yes __ _ __ // SALLY PIERRE PSYCHIATRIST Signed: 09/10/2023 15:50 SALLY PIERRE [facility] [place] [facility]
--- OUTSIDE RECORDS SUMMARY | 2024-05-05 07:43 | XMS_ITS | Encounter Summary ---
Author Name [facility] [place] [facility] [place] Organization [facility] [place] Address [address] [place] [address] Care Team Providers Care Associate Counsel Name Role Phone JOSE MANUEL PITT Primary [...] Burgess's Name Patient's Relationship to Policy Burgess [facility] HE[facility] PLAN MEDICARE SUPPLEMEN BETY MEDIC ARE SUPPL EMENT A Feb 18, 2022 SUPP1 [id number] [phone] GINA DE LA ROSA PATIENT [facility] MED PREFER/SEN IOR CARE MEDICARE SUPPLEMEN BETY MEDIC ARE SUPPL EMENT A Feb 18, 2021 SUPP1 [id number] GINA DE LA ROSA PATIENT Selected Encounter This section includes the information on record at [place] for the Encounter. Date/Time Encounter Type Encounter Description Reason Provider Source Jun 10, 2023 07:00 AM PSYTX W PT 45 MINUTES [facility]ENTAL [facility] CLINIC - IND ICD-10-CM F43.12 Post-traumatic stress disorder, chronic MOISES PADILLA Encounter Template Text not used by [place] Assessments - Encounter Diagnoses This section includes the primary and secondary diagnoses documented for the Encounter. Date/Time Primary/Secondary Diagnosis Diagnosis Name Provider Source Jun 10, 2023 07:56 AM PRIMARY Post-traumatic stress disorder, chronic MOISES PADILLA [place] [facility] [place] [facility] Jun 10, 2023 07:56 AM SECONDARY Cerebral infarction, unspecified MOISES PADILLA [place] [facility] [place] [facility] Jun 10, 2023 07:56 AM SECONDARY Persistent mood [affective] disorder, unspecified MOISES PADILLA [place] [facility] [place] [facility] Jun 10, 2023 07:56 AM SECONDARY Unsp symptoms and signs w cognitive functions and awareness MOISES PADILLA [place] [facility] [place] [facility] Plan of Treatment: Future Appointments (+ 6 months) and Future Tests (+/- 45 days) The Plan of Treatment section includes future care activities for the patient from all [place] treatmentfacilities. This section includes future appointments and future orders which are active, pending or scheduled. Future Appointments This section includes appointments that were scheduled to occur 6 months from the date of the Encounter, up to a maximum of 20 appointments. The data comes from all [place] treatment facilities. Appointment Date/Time Appointment Type Appointme nt Facility Name Jun 13, 2023 10:30 AM AMBULATORY - REHAB MEDICIN E [facility] [place] [facility] July 08, 2023 07:00 AM AMBULATORY - PSYCHIATRY [facility] [place] [facility] Jul 22, 2023 07:00 AM AMBULATORY - PSYCHIATRY [place] [facility] [place] [facility] Jul 22, 2023 08:00 AM AMBULATORY - NEUROLOGY [place] [facility] [place] [facility] Jul 25, 2023 01:30 PM AMBULATORY - PSYCHIATRY [facility] [place] [facility] Jul 29, 2023 07:00 AM AMBULATORY - PSYCHIATRY [facility] [place] [facility] Jul 29, 2023 08:30 AM AMBULATORY - MEDICINE [place] [facility] [place] [facility] Aug 21, 2023 10:00 AM AMBULATORY - MEDICINE [facility] Sep 02, 2023 07:00 AM AMBULATORY - PSYCHIATRY [place] [facility] [place] [facility] Sep 09, 2023 05:00 PM AMBULATORY - PSYCHIATRY [place] [facility] [place] [facility] Sep 11, 2023 09:00 AM AMBULATORY - PSYCHIATRY [facility] [place] [facility] Sep 19, 2023 01:30 PM AMBULATORY - PSYCHIATRY [facility] [place] [facility] Sep 25, 2023 09:00 AM AMBULATORY - PSYCHIATRY [facility] [place] [facility] Sep 30, 2023 07:00 AM AMBULATORY - PSYCHIATRY [facility] [place] [facility] Oct 02, 2023 09:00 AM AMBULATORY - PSYCHIATRY [facility] [place] [facility] Oct 09, 2023 09:00 AM AMBULATORY - PSYCHIATRY [facility] [place] [facility] Oct 16, 2023 09:00 AM AMBULATORY - PSYCHIATRY [facility] [place] [facility] Oct 23, 2023 09:00 AM AMBULATORY - PSYCHIATRY [facility] [place] [facility] Oct 28, 2023 07:00 AM AMBULATORY - PSYCHIATRY [facility] [place] [facility] Oct 28, 2023 08:00 AM AMBULATORY - NEUROLOGY [place] [facility] [place] [facility] Social History: Smoking Status (Most current) and Tobacco Use (All prior to encounter date) This section includes the most current, and the historical, smoking and tobacco- related health factors from the [place] facility where the Encounter took place. Current Smoking Status This section includes the most current smoking, or tobacco-related health factor, from the [place] facility where the Encounter took place. Date/Time Current Smoking Status Comment Facil ity Apr 15, 2023 07:00 AM VA-TOBACCO [facility] Tobacco Use History This section includes a history of the smoking, or tobacco-related health factors, that were collected on or before the date of the Encounter. The data comes from the [place] facility where the Encounter took place. Date/Time Smoking Status/Tobacco Use Comment F acility Apr 15, 2023 07:00 AM VA-TOBACCO QUIT 15 YRS OR MORE [facility] [place] [facility] Apr 24, 2022 07:00 AM VA-TOBACCO FORMER USER [place] [facility] [place] [facility] Apr 24, 2022 07:00 AM VA-TOBACCO QUIT 15 YRS OR MORE [place] [facility] [place] [facility] Apr 27, 2021 03:00 PM VA-TOBACCO FORMER USER [place] [facility] [place] [facility] Apr 27, 2021 03:00 PM VA-TOBACCO QUIT 15 YRS OR MORE [facility] [place] [facility] Mar 17, 2020 03:00 PM VA-TOBACCO FORMER USER [place] [facility] [place] [facility] Mar 17, 2020 03:00 PM VA-TOBACCO QUIT 15 YRS OR MORE [facility] [place] [facility] Mar 31, 2019 09:04 AM VA-TOBACCO FORMER USER [place] [facility] [place] [facility] Mar 31, 2019 09:04 AM VA-TOBACCO QUIT 15 YRS OR MORE [place] [facility] [place] [facility] Encounter Notes: All associated encounter notes This section contains the clinical notes associated to the Encounter. Date/Time Encounter Note(s) Provider Source Jun 10, 2023 06:38 AM PSYCHOLOGY NOTE: LOCAL TITLE: PSYCHOLOGY NOTE STANDARD TITLE: PSYCHOLOGY NOTE DATE OF NOTE: JUN 10, 2023@06:38 ENTRY DATE: JUN 10, 2023@06:39:01 AUTHOR: MOISES PADILLA COSIGNER: URGENCY: STATUS: COMPLETED VISIT DURATION 45 minutes DIAGNOSES: Persistent mood disorder, unspecified PTSD, chronic Cognitive Disorder (History of) Cerebral Infarction, Unspecified PRESENTING PROBLEMS: Wickett presented on time and re-engaged in treatment as usual. 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 This time, he reportedly is becoming less involved so he doesn't injure himself. We spoke about the lessons he has learned in the regard, over the past year +. Wickett was encouraged to discuss more about how his communication with Carlyn has gone, through this potentially stressful process. They seem to be better about expressing their intentions/standards, which leads to less surprise and subsequent argument. However, the two still tend to disagree about how much to spend. Wickett reports that he is often pumping the breaks on spending, and encouraging them to consider a cheaper alternate solution. Lastly, we focused on his recent health issues with his prostate, causing him to have difficulty with urinary retention. spoke about a medication that was too expensive to afford, but the VA will be able to cover it for him, for low or no cost. He spoke highly of his medical and mental health care here. I have to say I have never had any problems with my care here. Relatedly, we reviewed his improvement with mental health symptoms over the years. ASSESSMENT: BRIEF ASSESSMENT OF MENTAL STATUS: 1. [...] ideation Denies current homicidal ideation RTCs: F2F ns E/O/Week /es/ Moises Padilla PsyD Staff Psychologist Signed: 06/10/2023 07:58 MOISES PADILLA [place] [facility]
--- OUTSIDE RECORDS SUMMARY | 2024-05-05 07:43 | XMS_ITS | Encounter Summary ---
Author Name [facility] [place] Organization [facility] [place] Address [address] [place] [address] Care Team Providers Care Compliance Specialist Name Role Phone JOSE MANUEL PITT Primary [...] Name Patient's Relationship to Policy Burgess [facility] HEALTH PLAN MEDICARE SUPPLEMEN BETY MEDIC ARE SUPPL EMENT A Feb 18, 2022 SUPP1 [id number] GINA DE LA ROSA PATIENT [facility] MED PREFER/SEN IOR CARE MEDICARE SUPPLEMEN BETY MEDIC ARE SUPPL EMENT A Feb 18, 2021 SUPP1 [id number] [phone] GINA DE LA ROSA PATIENT Selected Encounter This section includes the information on record at [place] for the Encounter. Date/Time Encounter Type Encounter Description Reason Provider Source Apr 29, 2024 09:00 AM GROUP PSYCHOTHERAPY [facility] ICD-10-CM F43.12 Post-traumati c stress disorder, chronic MARIALUISA SALCEDO Encounter Template Text not used by [place] Assessments - Encounter Diagnoses This section includes the primary and secondary diagnoses documented for the Encounter. Date/Time Primary/Secondary Diagnosis Diagnosis Name Provider Source Apr 29, 2024 11:50 AM PRIMARY Post-traumatic stress disorder, chronic MARIALUISA SALCEDO [facility] [place] [facility] Plan of Treatment: Future Appointments [...] Appointment Type Appointme nt Facility Name May 04, 2024 07:00 AM AMBULATORY - PSYCHIATRY [facility] [place] [facility] May 04, 2024 10:15 AM AMBULATORY - MEDICINE [facility] [place] [facility] May 06, 2024 09:00 AM AMBULATORY - PSYCHIATRY [facility] [place] [facility] May 13, 2024 09:00 AM AMBULATORY - PSYCHIATRY [facility] [place] [facility] May 14, 2024 09:30 AM [facility] May 20, 2024 09:00 AM AMBULATORY - PSYCHIATRY [facility] [place] [facility] May 21, 2024 02:00 PM AMBULATORY - MEDICINE [facility] [place] [facility] May 25, 2024 07:00 AM AMBULATORY - PSYCHIATRY [facility] [place] [facility] May 27, 2024 09:00 AM AMBULATORY - PSYCHIATRY [facility] [place] [facility] Jun 01, 2024 01:00 PM AMBULATORY - PSYCHIATRY [facility] [place] [facility] Jun 03, 2024 09:00 AM AMBULATORY - PSYCHIATRY [facility] [place] [facility] Jun 09, 2024 07:00 AM AMBULATORY - PSYCHIATRY [facility] [place] [facility] Jun 10, 2024 09:00 AM AMBULATORY - PSYCHIATRY [facility] [place] [facility] June 22, 2024 07:00 AM AMBULATORY - PSYCHIATRY [facility] [place] [facility] July 06, 2024 07:00 AM AMBULATORY - PSYCHIATRY [facility] [place] [facility] Jul 20, 2024 09:00 AM AMBULATORY - NEUROLOGY [facility] [place] [facility] Aug 03, 2024 08:30 AM [facility] Active, Pending, and Scheduled Orders This section includes a listing of several types of active, pending, and scheduled orders, including clinic medications orders, diagnostic test orders, procedure orders and consult orders; where the start date of the order is 45 days before the date of the Encounter or 45 days after the date of theEncounter. The data comes from all [place] treatment facilities. Test Date/Time Test Type Test Details Facility Name Apr 27, 2024 12:00 AM Laboratory - Chemi stry Order OCCULT BLOOD FIT X1 SCREEN (MFP ONLY) STOOL FECES SP [facility] [place] [facility] Social History: Smoking Status (Most current) and Tobacco Use (All prior to encounter date) This section includes the most current, and the historical, smoking and tobacco- related health factors from the [place] facility where the Encounter took place. Current Smoking Status This section includes the most current smoking, or tobacco-related health factor, from the [facility] facility where the Encounter took place. Date/Time Current Smoking Status Comment Facil ity Mar 30, 2024 07:00 AM VA-TOBACCO USE FOR TYRONE OTHER TYPE [facility] Tobacco Use History This section includes a history of the smoking, or tobacco-related health factors, that were collected on or before the date of the Encounter. The data comes from the [place] facility where the Encounter took place. Date/Time Smoking Status/Tobacco Use Comment F acility Mar 30, 2024 07:00 AM VA-TOBACCO USE FOR TYRONE OTHER TYPE [facility] [place] [facility] Apr 15, 2023 07:00 AM VA-TOBACCO FORMER USER [facility] [place] [facility] Apr 15, 2023 07:00 AM VA-TOBACCO QUIT 15 YRS OR MORE [facility] [place] [facility] Apr 24, 2022 07:00 AM VA-TOBACCO FORMER USER [facility] [place] [facility] Apr 24, 2022 07:00 AM VA-TOBACCO QUIT 15 YRS OR MORE [facility] [place] [facility] Apr 27, 2021 03:00 PM VA-TOBACCO FORMER USER [facility] [place] [facility] Apr 27, 2021 03:00 PM VA-TOBACCO QUIT 15 YRS OR MORE [facility] [place] [facility] Mar 17, 2020 03:00 PM VA-TOBACCO FORMER USER [facility] [place] [facility] Mar 17, 2020 03:00 PM VA-TOBACCO QUIT 15 YRS OR MORE [facility] [place] [facility] Mar 31, 2019 09:04 AM VA-TOBACCO FORMER USER [facility] [place] [facility] Mar 31, 2019 09:04 AM VA-TOBACCO QUIT 15 YRS OR MORE [facility] [place] [facility] Encounter Notes: All associated encounter notes This section contains the clinical notes associated to the Encounter. Date/Time Encounter Note(s) Provider Source Apr 29, 2024 11:41 AM SOCIAL WORK GROUP COUNSELING NOTE: LOCAL TITLE: SOCIAL WORK GROUP NOTE STANDARD TITLE: SOCIAL WORK GROUP COUNSELING NOTE DATE OF NOTE: APR 29, 2024@11:41 ENTRY DATE: APR 29, 2024@11:41:11 AUTHOR: MARIALUISA SALCEDO EXP COSIGNER: URGENCY: STATUS: COMPLETED iRest Group Date: 04/29/24 Time: 9 AM Number of group members: Shaper Operator: Marialuisa Salcedo [facility] Group began with a introduction that [...] emotions and thoughts. Today's theme was on inner resource. [place] engaged with hospitality specialist and group members appropriately, participating in the meditation and reflection time. [place] did not endorse SI/HI. 's intention was to relax and find peace. DIAGNOSES: Persistent mood disorder, unspecified PTSD, chronic Cognitive Disorder (History of) Cerebral Infarction, Unspecified [facility] Video Connect (VVC) Standard Documentation VVC Clinician Resources Only: E911 (Emergency Call Relay Center): [phone] National Veterans Crisis Line - 988 then press #1. BETH Suicide Coordinator [phone], Ext. [phone]; Back-up Ext. [phone] [place] Police, Sangeeta CAMPOS [phone] Introduction: Visit is being conducted by [place] Video Connect. identified with 2 identifiers: [X] Full Name [X] Date of [ ] VA ID Card Emergency Plan: [place] confirmed and/or provided the following information in case of emergency or technology failure. PATIENT PHONE - PHONE NUMBER [CELLULAR] - Is patient phone number correct, if not, enter below: 's phone number: TAJ DE LA ROSA [address], [place], [address] 's present location and address for appointment: his home 's emergency contact name and phone number: E-Cont.: JUVENCIO DE LA ROSA Relation Type: UNRELATED FRIEND/OTHER Relation Note: OTHERS [address] [place] [address] [facility] [place] reported that location is private and safe: Yes Informed Consent: [place] informed of the risks and benefits of Telehealth video care. has the right to refuse video services. If refuses video visit, a [id number] visit will be scheduled. verbalized consent for this video visit: Yes provided consent for any other persons present for visit: Yes If yes, who and relationship to patient:group Secure visit: Visit was locked for security and privacy:Yes /nicole/ REBECA CARABALLO Truck Cleaner Signed: 04/29/2024 11:51 MARIALUISA SALCEDO [facility]
--- OUTSIDE RECORDS SUMMARY | 2024-05-05 07:43 | XMS_ITS | Encounter Summary ---
Author Name [facility] [place] [facility] Address [address] [place] [address] Care Team Providers Care General Operator Name Role Phone JOSE MANUEL PITT [...] Burgess's Name Patient's Relationship to Policy Burgess [facility] PLAN MEDICARE SUPPLEMEN BETY MEDIC ARE SUPPL EMENT A Feb 18, 2022 SUPP1 [id number] GINA DE LA ROSA PATIENT [facility] MED PREFER/SEN IOR CARE MEDICARE SUPPLEMEN BETY MEDIC ARE SUPPL EMENT A Feb 18, 2021 SUPP1 [id number] GINA DE LA ROSA PATIENT Selected Encounter This section includes the information on record at [place] for the Encounter. Date/Time Encounter Type Encounter Description Reason Provider Source Apr 15, 2024 09:00 AM STRESS MGMT CLASS [facility]-GROUP ICD-10-CM F43.12 Post-traumatic stress disorder, chronic MARIALUISA SALCEDO Encounter Template Text not used by [place] Assessments - Encounter Diagnoses This section includes the primary and secondary diagnoses documented for the Encounter. Date/Time Primary/Secondary Diagnosis Diagnosis Name Provider Source Apr 15, 2024 10:33 AM PRIMARY Post-traumatic stress disorder, chronic MARIALUISA SALCEDO [place] [facility] [place] [facility] Plan of Treatment: Future Appointments (+ 6 months) and Future Tests (+/- 45 days) The Plan of Treatment section includes future care activities for the patient from all [place] treatmentfacilities. This section includes future appointments and future orders which are active, pending or scheduled. Future Appointments This section includes appointments that were scheduled to occur 6 months from the date of the Encounter, up to a maximum of 20 appointments. The data comes from all [place] treatment facilities. Appointment Date/Time Appointment Type Appointme nt Facility Name Apr 20, 2024 09:00 AM AMBULATORY - NEUROLOGY [facility] [place] [facility] Apr 22, 2024 09:00 AM AMBULATORY - PSYCHIATRY [facility] [place] [facility] Apr 29, 2024 09:00 AM AMBULATORY - PSYCHIATRY [facility] [place] [facility] May 04, 2024 07:00 AM AMBULATORY - PSYCHIATRY [facility] [place] [facility] May 04, 2024 10:15 AM AMBULATORY - MEDICINE [facility] [place] [facility] May 06, 2024 09:00 AM AMBULATORY - PSYCHIATRY [facility] [place] [facility] May 13, 2024 09:00 AM AMBULATORY - PSYCHIATRY [facility] [place] [facility] May 14, 2024 09:30 AM AMBULATORY - MEDICINE [facility] May 20, 2024 09:00 AM AMBULATORY - PSYCHIATRY [facility] [place] [facility] May 21, 2024 02:00 PM AMBULATORY - MEDICINE [facility] [place] [facility] May 25, 2024 07:00 AM AMBULATORY - PSYCHIATRY [facility] [place] [facility] May 27, 2024 09:00 AM AMBULATORY - PSYCHIATRY [facility] [place] [facility] Jun 01, 2024 01:00 PM AMBULATORY - PSYCHIATRY [facility] [place] [facility] Jun 03, 2024 09:00 AM AMBULATORY - PSYCHIATRY [facility] [place] [facility] Jun 09, 2024 07:00 AM AMBULATORY - PSYCHIATRY [facility] [place] [facility] Jun 10, 2024 09:00 AM [facility] [place] [facility] June 22, 2024 07:00 AM [facility] July 06, 2024 07:00 AM [facility] [place] [facility] Jul 20, 2024 09:00 AM [facility] Aug 03, 2024 08:30 AM [facility] Active, Pending, and Scheduled Orders This section includes a listing of several types of active, pending, and scheduled orders, including clinic medications orders, diagnostic test orders, procedure orders and consult orders; where thestart date of the order is 45 days before the date of the Encounter or 45 days after the date of the Encounter. The data comes from all [place] treatment facilities. Test Date/Time Test Type Test Details Facility Name Apr 27, 2024 12:00 AM Laboratory - Chemi stry Order OCCULT BLOOD FIT X1 SCREEN (MFP ONLY) STOOL FECES SP [facility] Social History: Smoking Status (Most current) and Tobacco Use (All prior to encounter date) This section includes the most current, and the historical, smoking and tobacco- related health factors from the [place] facility where the Encounter took place. Current Smoking Status This section includes the most current smoking, or tobacco-related health factor, from the [place] facility where the Encounter took place. Date/Time Current Smoking Status Comment Facil ity Mar 30, 2024 07:00 AM VA-TOBACCO USE FOR TYRONE CIGARETTES [facility] Tobacco Use History This section includes a history of the smoking, or tobacco-related health factors, that were collected on or before the date of the Encounter. The data comes from the [place] facility where the Encounter took place. Date/Time Smoking Status/Tobacco Use Comment F acility Mar 30, 2024 07:00 AM [facility] Apr 15, 2023 07:00 AM VA-TOBACCO FORMER USER [facility] Apr 15, 2023 07:00 AM VA-TOBACCO QUIT 15 YRS OR MORE [facility] Apr 24, 2022 07:00 AM VA-TOBACCO FORMER USER [facility] [place] [facility] Apr 24, 2022 07:00 AM VA-TOBACCO QUIT 15 YRS OR MORE [facility] [place] [facility] Apr 27, 2021 03:00 PM VA-TOBACCO FORMER USER [facility] [place] [facility] Apr 27, 2021 03:00 PM VA-TOBACCO QUIT 15 YRS OR MORE [facility] [place] [facility] Mar 17, 2020 03:00 PM VA-TOBACCO FORMER USER [facility] [place] [facility] Mar 17, 2020 03:00 PM VA-TOBACCO QUIT 15 YRS OR MORE [facility] [place] [facility] Mar 31, 2019 09:04 AM VA-TOBACCO FORMER USER [facility] [place] [facility] Mar 31, 2019 09:04 AM VA-TOBACCO QUIT 15 YRS OR MORE [facility] [place] [facility] Encounter Notes: All associated encounter notes This section contains the clinical notes associated to the Encounter. Date/Time Encounter Note(s) Provider Source Apr 15, 2024 10:08 AM SOCIAL WORK GROUP COUNSELING NOTE: LOCAL TITLE: SOCIAL WORK GROUP NOTE STANDARD TITLE: SOCIAL WORK GROUP COUNSELING NOTE DATE OF NOTE: APR 15, 2024@10:08 ENTRY DATE: APR 15, 2024@10:08:46 AUTHOR: MARIALUISA SALCEDO EXP COSIGNER: URGENCY: STATUS: COMPLETED iRest Group Date: 04/15/24 Time: 9 AM Number of group members: 15 Loader: Marialuisa Salcedo [facility] Group began with a introduction that [...] emotions and thoughts. Today's theme was on pure awareness. engaged with biomass power plant superintendent and group members appropriately, participating in the meditation and reflection time. did not endorse SI/HI. [place]'s intention is to relax and develop a sense of peace and self-awareness. Plan: Continue practicing iRest meditation and read An Introduction to iRest workbook. Return to group next week. DIAGNOSES: Persistent mood disorder, unspecified PTSD, chronic Cognitive Disorder (History of) Cerebral Infarction, Unspecified [place] Video Connect ([facility]VC) Standard Documentation VVC Clinician Resources Only: E911 (Emergency Call Relay Center): [phone] National [employer] Crisis Line - 988 then press #1. [place] Suicide Coordinator [phone], Ext. [phone]; Back-up Ext. [phone] [place] Police, BETH, Sangeeta [phone] Introduction: Visit is being conducted by [place] [employer]. identified with 2 identifiers: [X] Full Name [X] Date of [ ] VA ID Card Emergency Plan: confirmed and/or provided the following information in case of emergency or technology failure. PATIENT PHONE - PHONE NUMBER [CELLULAR] - Is patient phone number correct, if not, enter below: 's phone number: TAJ DE LA ROSA [address], [place], [address] [place]'s present location and address for appointment: his home 's emergency contact name and phone number: E-Cont.: JUVENCIO DE LA ROSA Relation Type: UNRELATED FRIEND/OTHER Relation Note: OTHERS [address] [place] [address] [facility] [place] reported that location is private and safe: Yes Informed Consent: [place] informed of the risks and benefits of Telehealth video care. has the right to refuse video services. If refuses video visit, a [id number] visit will be scheduled. [place] verbalized consent for this video visit: Yes provided consent for any other persons present for visit: Yes If yes, who and relationship to patient:group Secure visit: Visit was locked for security and privacy:Yes /nicole/ REBECA CARABALLO Physiotherapy Assistant Signed: 04/15/2024 10:34 MARIALUISA SALCEDO [place] [facility]
--- OUTSIDE RECORDS SUMMARY | 2024-05-05 07:43 | XMS_ITS | Encounter Summary ---
Author Name [place] Address [address] [place] [address] Care Team Providers Care Cardiographer Name Role Phone JOSE MANUEL PITT Primary [...] Name Patient's Relationship to Policy Burgess [facility] HEALTH PLAN MEDICARE SUPPLEMEN BETY MEDIC ARE SUPPL EMENT A Feb 18, 2022 SUPP1 [id number] GINA DE LA ROSA PATIENT [facility] MED PREFER/SEN IOR CARE MEDICARE SUPPLEMEN BETY MEDIC ARE SUPPL EMENT A Feb 18, 2021 SUPP1 [id number] GINA DE LA ROSA PATIENT Selected Encounter This section includes the information on record at [place] for the Encounter. Date/Time Encounter Type Encounter Description Reason Provider Source Dec 11, 2023 09:00 AM GROUP PSYCHOTHERAPY [facility]-GROUP ICD-10-CM F43.12 Post-traumati c stress disorder, chronic MARIALUISA SALCEDO Encounter Template Text not used by [place] Assessments - Encounter Diagnoses This section includes the primary and secondary diagnoses documented for the Encounter. Date/Time Primary/Secondary Diagnosis Diagnosis Name Provider Source Dec 11, 2023 10:31 AM PRIMARY Post-traumatic stress disorder, chronic MARIALUISA SALCEDO [facility] [place] [facility] Plan of Treatment: Future Appointments (+ 6 months) and Future Tests (+/- 45 days) The Plan of Treatment section includes future care activities for the patient from all [place] treatmentfacilities. This section includes future appointments and future orders which are active, pending or scheduled. Future Appointments This section includes appointments that were scheduled to occur 6 months from the date of the Encounter, up to a maximum of 20 appointments. The data comes from all [place] treatment facilities. Appointment Date/Time Appointment Type Appointme nt Facility Name Dec 16, 2023 09:30 AM AMBULATORY - PSYCHIATRY [facility] [place] [facility] Dec 18, 2023 09:00 AM AMBULATORY - PS[facility]IATRY [facility] [place] [facility] Dec 19, 2023 07:30 AM AMBULATORY - MEDICINE [place] [facility] [place] [facility] Dec 23, 2023 07:00 AM AMBULATORY - PS[facility]CHIATRY [facility] [place] [facility] Dec 25, 2023 09:00 AM AMBULATORY - PS[facility]CHIATRY [facility] [place] [facility] Jan 01, 2024 09:00 AM AMBULATORY - PS[facility]CHIATRY [facility] [place] [facility] Jan 08, 2024 09:00 AM AMBULATORY - PS[facility]CHIATRY [facility] [place] [facility] Jan 09, 2024 09:30 AM AMBULATORY - MEDICINE [facility] Jan 14, 2024 07:00 AM AMBULATORY - PSYCHIATRY [facility] [place] [facility] Jan 20, 2024 08:30 AM AMBULATORY - NEUROLOGY [facility] [place] [facility] Jan 22, 2024 09:00 AM AMBULATORY - PSYCHIATRY [facility] [place] [facility] Jan 27, 2024 01:30 PM AMBULATORY - PSYCHIATRY [facility] [place] [facility] Jan 29, 2024 09:00 AM AMBULATORY - PSYCHIATRY [facility] [place] [facility] Feb 05, 2024 09:00 AM AMBULATORY - PSYCHIATRY [facility] [place] [facility] Feb 10, 2024 07:00 AM AMBULATORY - PS[facility]CHIATRY [facility] [place] [facility] Feb 24, 2024 07:00 AM [facility] Mar 04, 2024 09:00 AM [facility] Mar 11, 2024 09:00 AM [facility] [place] [facility] Mar 18, 2024 09:00 AM [facility] Mar 25, 2024 09:00 AM AMBULATORY - [facility] Active, Pending, and Scheduled Orders This section includes a listing of several types of active, pending, and scheduled orders, including clinic medications orders, diagnostic test orders, procedure orders and consult orders; where the start date of the order is 45 days before the date of the Encounter or 45 days after the date of theEncounter. The data comes from all [place] treatment facilities. Test Date/Time Test Type Test Details Facility Name Oct 28, 2023 01:47 PM Consult Order COMMUNITY CARE-NEUROLOGY Cons Supervisor Heavy Equipment's Choice [facility] Lab Results: +/- 30 days of the encounter This section includes the Chemistry and Hematology Lab Results on record with [place] for the patient. Radiology Reports and Pathology Reports are provided separately, in subsequent sections. Lab Results This section contains the Chemistry/Hematology Results that were resulted 30 days before or 30 daysafter the date of the Encounter. Date/Time Source Result Type Result - Unit Interpretation Reference Range Comment Dec 19, 2023 07:55 AM [facility] FOLATE (WROX) Specimen Type: SERUM No comment entered. Ordering Provider: NAV PIERRE Report Released Date/Time: Oct 28, 2023 09:59 AM Reporting Lab: [facility] [address] [id number] Performing Lab: [facility] [address] [place] [address] FOLATE (WROX) 9.07 ng/mL >5.2 Dec 19, 2023 07:55 AM [facility] TSH Specimen Type: SERUM No comment entered. Ordering Provider: NAV PIERRE Report Released Date/Time: Oct 28, 2023 09:59 AM Reporting Lab: [facility] [address] [address] Performing Lab: [facility] [address] [address] TSH 1.09 u[IU]/mL 0.35-5.00 Dec 19, 2023 07:55 AM [facility] VITAMIN D (25-OH) Specimen Type: SERUM No comment entered. Ordering Provider: NAV PIERRE Report Released Date/Time: Oct 28, 2023 09:59 AM Reporting Lab: [facility] [address] [address] Performing Lab: [address] [address] VITAMIN D (25-OH) 38 ng/mL 20-50 Dec 19, 2023 07:55 AM [facility] VITAMIN B12 Specimen Type: SERUM No comment entered. Ordering Provider: NAV PIERRE Report Released Date/Time: Oct 28, 2023 09:59 AM Reporting Lab: [facility] [address] [address] Performing Lab: [facility] [address] [address] VITAMIN B12 297 pg/mL 200-900 Dec 19, 2023 07:55 AM [facility] LIPID PANEL FASTING Specimen Type: SERUM No comment entered. Ordering Provider: NAV PIERRE Report Released Date/Time: Dec 16, 2023 09:50 AM Reporting Lab: [facility] [address] [address] Performing Lab: [facility] [address] CHOLESTEROL 113 mg/dL TRIGLYCERIDE 85 mg/dL 0-150 LDL calculated 50 mg/dL 0-129 CHOL/HDL 2.5 HDL CHOLESTEROL 46 mg/dL 40-60 Dec 19, 2023 07:55 AM [facility] HEMOGLOBIN A1C PANEL Specimen Type: BLOOD [...] Dec 16, 2023 09:50 AM Reporting Lab: [address] [address] Performing Lab: [address] [address] HEMOGLOBIN A1C 5.5 4.0-5.6 Dec 19, 2023 07:55 AM [facility] BASIC METABOLIC PANEL (fasting) Specimen Type: SERUM No comment entered. Ordering Provider: NAV PIERRE Report Released Date/Time: Dec 16, 2023 09:50 AM Reporting Lab: [address] [address] Performing Lab: [address] [address] UREA NITROGEN 18 mg/dL 7-25 GLUCOSE 117 [...] AM VA-TOBACCO QUIT 15 YRS OR MORE [facility] Tobacco Use History This section includes a history of the smoking, or tobacco-related health factors, that were collected on or before the date of the Encounter. The data comes from the [place] facility where the Encounter took place. Date/Time Smoking Status/Tobacco Use Comment F acility Apr 15, 2023 07:00 AM VA-TOBACCO QUIT 15 YRS OR MORE [facility] [place] [facility] Apr 24, 2022 07:00 AM VA-TOBACCO FORMER USER [facility] [place] [facility] Apr 24, 2022 07:00 AM VA-TOBACCO QUIT 15 YRS OR MORE [facility] [place] [facility] Apr 27, 2021 03:00 PM VA-TOBACCO FORMER USER [facility] [place] [facility] Apr 27, 2021 03:00 PM VA-TOBACCO QUIT 15 YRS OR MORE [facility] [place] [facility] Mar 17, 2020 03:00 PM VA-TOBACCO FORMER USER [facility] [place] [facility] Mar 17, 2020 03:00 PM VA-TOBACCO QUIT 15 YRS OR MORE [facility] [place] [facility] Mar 31, 2019 09:04 AM VA-TOBACCO FORMER USER [facility] [place] [facility] Mar 31, 2019 09:04 AM VA-TOBACCO QUIT 15 YRS OR MORE [place] [facility] [place] [facility] Encounter Notes: All associated encounter notes This section contains the clinical notes associated to the Encounter. Date/Time Encounter Note(s) Provider Source Dec 11, 2023 10:21 AM SOCIAL WORK GROUP COUNSELING NOTE: LOCAL TITLE: SOCIAL WORK GROUP NOTE STANDARD TITLE: SOCIAL WORK GROUP COUNSELING NOTE DATE OF NOTE: DEC 11, 2023@10:21 ENTRY DATE: DEC 11, 2023@10:21:17 AUTHOR: MAIRALUISA SALCEDO EXP COSIGNER: URGENCY: STATUS: COMPLETED iRest Group Date: 12/11/23 Time: 9 am Number of group members: 11 Electric Well Logging Operator: Marialuisa Salcedo [facility] Group began with a introduction that iRest [...] theme was on pure awareness. engaged with machine cloth trimmer and group members appropriately, participating in the meditation and reflection time. did not endorse SI/HI. 's stated intention was to bring ease and well being physically and emotionally. DIAGNOSES: Persistent mood disorder, unspecified PTSD, chronic Cognitive Disorder (History of) Cerebral Infarction, Unspecified [place] App47 Connect (VVC) Standard Documentation VV Clinician Resources Only: E911 (Emergency Call Relay Center): [phone] National Veterans Crisis Line - 988 then press #1. BETH Suicide Coordinator [phone], Ext. [phone]; Back-up Ext. [phone] [place] Police, Sangeeta CAMPOS [phone] Introduction: Visit is being conducted by hopTo. identified with 2 identifiers: [X] Full Name [X] Date of [ ] VA ID Card Emergency Plan: confirmed and/or provided the following information in case of emergency or technology failure. PATIENT PHONE - PHONE NUMBER [CELLULAR] - Is patient phone number correct, if not, enter below: 's phone number: TAJ DE LA ROSA [address], [place], [address] [place]'s present location and address for appointment: his home [place]'s emergency contact name and phone number: E-Cont.: JUVENCIO DE LA ROSA Relation Type: UNRELATED FRIEND/OTHER Relation Note: OTHERS [address] [place] [address] [facility] [place] reported that location is private and safe: Yes Informed Consent: [place] informed of the risks and benefits of Telehealth video care. has the right to refuse video services. If refuses video visit, a [id number]-[id number] visit will be scheduled. verbalized consent for this video visit: Yes [place] provided consent for any other persons present for visit: Yes If yes, who and relationship to patient:group Secure visit: Visit was locked for security and privacy:Yes /es/ REBECA CARABALLO Registered Safety Engineer Signed: 12/11/2023 10:32 MARIALUISA SALCEDO [facility]
--- OUTSIDE RECORDS SUMMARY | 2024-05-05 07:43 | XMS_ITS | Encounter Summary ---
Author Name [place] Address [address] [place] [address] Care Team Providers Care Fan Balancer Name Role Phone JOSE MANUEL PITT Primary [...] Burgess's Name Patient's Relationship to Policy Burgess [facility] HEALTH PLAN MEDICARE SUPPLEMEN BETY MEDIC ARE SUPPL EMENT A Feb 18, 2022 SUPP1 [id number] [phone] GINA DE LA ROSA PATIENT [facility] MED PREFER/SEN IOR CARE MEDICARE SUPPLEMEN BETY MEDIC ARE SUPPL EMENT A Feb 18, 2021 SUPP1 [id number] GINA DE LA ROSA PATIENT Selected Encounter This section includes the information on record at [place] for the Encounter. Date/Time Encounter Type Encounter Description Reason Provider Source Nov 13, 2023 09:00 AM GROUP PSYCHOTHERAPY MENTAL HEALTH CLINIC-GROUP ICD-10-CM F43.12 Post-traumati c stress disorder, chronic MARIALUISA SALCEDO Encounter Template Text not used by [place] Assessments - Encounter Diagnoses This section includes the primary and secondary diagnoses documented for the Encounter. Date/Time Primary/Secondary Diagnosis Diagnosis Name Provider Source Nov 13, 2023 10:25 AM PRIMARY Post-traumatic stress disorder, chronic MARIALUISA SALCEDO [place] [facility] [place] [facility] Plan of Treatment: Future Appointments [...] Appointment Type Appointme nt Facility Name Nov 19, 2023 07:00 AM AMBULATORY - PS[facility]CHIATRY [facility] [place] [facility] Nov 20, 2023 09:00 AM AMBULATORY - PS[facility]CHIATRY [facility] [place] [facility] Nov 27, 2023 09:00 AM AMBULATORY - PSYCHIATRY [facility] [place] [facility] Dec 04, 2023 09:00 AM AMBULATORY - PSYCHIATRY [facility] [place] [facility] Dec 11, 2023 09:00 AM AMBULATORY - PSYCHIATRY [facility] [place] [facility] Dec 16, 2023 09:30 AM AMBULATORY - PSYCHIATRY [facility] [place] [facility] Dec 18, 2023 09:00 AM AMBULATORY - PSYCHIATRY [facility] [place] [facility] Dec 19, 2023 07:30 AM AMBULATORY - MEDICINE [facility] [place] [facility] Dec 23, 2023 07:00 AM AMBULATORY - PSYCHIATRY [facility] [place] [facility] Dec 25, 2023 09:00 AM AMBULATORY - PSYCHIATRY [facility] [place] [facility] Jan 01, 2024 09:00 AM AMBULATORY - PSYCHIATRY [facility] [place] [facility] Jan 08, 2024 09:00 AM AMBULATORY - PSYCHIATRY [facility] [place] [facility] Jan 09, 2024 09:30 AM AMBULATORY - MEDICINE [facility] Jan 14, 2024 07:00 AM AMBULATORY - PSYCHIATRY [facility] [place] [facility] Jan 20, 2024 08:30 AM AMBULATORY - NEUROLOGY [facility] [place] [facility] Jan 22, 2024 09:00 AM AMBULATORY - PS[place]CHIATRY [place] [facility] [facility] Jan 27, 2024 01:30 PM AMBULATORY - PS[place]CHIATRY [place] [facility] [place] [facility] Jan 29, 2024 09:00 AM AMBULATORY - PS[place]CHIATRY [place] [facility] [place] [facility] Feb 05, 2024 09:00 AM AMBULATORY - [facility]IATRY [facility] [place] [facility] Feb 10, 2024 07:00 AM AMBULATORY - PS[facility]CHIATRY [facility] Active, Pending, and Scheduled Orders This section includes a listing of several types of active, pending, and scheduled orders, including clinic medications orders, diagnostic test orders, procedure orders and consult orders; where the start date of the order is 45 days before the date of the Encounter or 45 days after the date of theEncounter. The data comes from all [place] treatment facilities. Test Date/Time Test Type Test Details Facility Name Oct 25, 2023 02:36 PM Consult Order COMMUNITY CARE-UROLOGY Cons Director Network Development's Choice [facility] Oct 28, 2023 01:47 PM Consult Order COMMUNITY CARE-NEUROLOGY Cons Director Network Development's Choice [facility] Social History: Smoking Status (Most [...] 15, 2023 07:00 AM VA-TOBACCO [facility] Tobacco Use History This section includes a history of the smoking, or tobacco-related health factors, that were collected on or before the date of the Encounter. The data comes from the [place] facility where the Encounter took place. Date/Time Smoking Status/Tobacco Use Comment F acshen Apr 15, 2023 07:00 AM VA-TOBACCO QUIT 15 YRS OR MORE [facility] Apr 24, 2022 07:00 AM VA-TOBACCO [facility] Apr 24, 2022 07:00 AM VA-TOBACCO QUIT 15 YRS OR MORE [facility] [place] [facility] Apr 27, 2021 03:00 PM VA-TOBACCO FORMER USER [facility] [place] [facility] Apr 27, 2021 03:00 PM VA-TOBACCO QUIT 15 YRS OR MORE [facility] [place] [facility] Mar 17, 2020 03:00 PM VA-TOBACCO FORMER USER [facility] [place] [facility] Mar 17, 2020 03:00 PM VA-TOBACCO QUIT 15 YRS OR MORE [facility] [place] [facility] Mar 31, 2019 09:04 AM VA-TOBACCO FORMER USER [facility] [place] [facility] Mar 31, 2019 09:04 AM VA-TOBACCO QUIT 15 YRS OR MORE [facility] [place] [facility] Encounter Notes: All associated encounter notes This section contains the clinical notes associated to the Encounter. Date/Time Encounter Note(s) Provider Source Nov 13, 2023 10:17 AM SOCIAL WORK GROUP COUNSELING NOTE: LOCAL TITLE: SOCIAL WORK GROUP NOTE STANDARD TITLE: SOCIAL WORK GROUP COUNSELING NOTE DATE OF NOTE: NOV 13, 2023@10:17 ENTRY DATE: NOV 13, 2023@10:17:19 AUTHOR: MARIALUISA SALCEDO EXP COSIGNER: URGENCY: STATUS: COMPLETED iRest Group Date: 11/13/23 Time: 9 AM Number of group members: Pin Maker: Marialuisa Salcedo, [facility] Group began with a introduction that [...] on body and breath sensing. engaged with traveling passenger agent and group members appropriately, participating in the meditation and reflection time. [place] did not endorse SI/HI. 's intention was to become more aware of the breath as a tool during the meditation and daily life. DIAGNOSES: Persistent mood disorder, unspecified PTSD, chronic Cognitive Disorder (History of) Cerebral Infarction, Unspecified [place] Video Connect (VVC) Standard Documentation VVC Clinician Resources Only: E911 (Emergency Call Relay Center): [phone] National Veterans Crisis Line - 988 then press #1. CLEMENTENehemias Suicide Coordinator [phone], Ext. [phone]; Back-up Ext. [phone] [place] Police, BETH, Sangeeta [phone] Introduction: Visit is being conducted by [place] K Spine Connect. [place] identified with 2 identifiers: [X] Full Name [X] Date of [ ] VA ID Card Emergency Plan: [place] confirmed and/or provided the following information in case of emergency or technology failure. PATIENT PHONE - PHONE NUMBER [CELLULAR] - Is patient phone number correct, if not, enter below: [place]'s phone number: TAJ DE LA ROSA [address], [place], [address] [place]'s present location and address for appointment: his home 's emergency contact name and phone number: E-Cont.: ESTRELLAJUVENCIO Relation Type: UNRELATED FRIEND/OTHER Relation Note: [place]THERS [address] [place] [address] [facility] reported that location is private and safe: Yes Informed Consent: informed of the risks and benefits of Telehealth video care. [place] has the right to refuse video services. If refuses video visit, a jjur-qt-qchp visit will be scheduled. [place] verbalized consent for this video visit: Yes [place] provided consent for any other persons present for visit: Yes If yes, who and relationship to patient:group Secure visit: Visit was locked for security and privacy:Yes /nicole/ REBECA CARABALLO Flight/Transport Nurse Signed: 11/13/2023 10:26 MARIALUISA SALCEDO CNTRL [facility]NADevang [facility]
--- OUTSIDE RECORDS SUMMARY | 2024-05-05 07:43 | XMS_ITS ---
Author Name [facility] [facility] [place] [facility] [place] Address [address] [place] [address] Care Team Providers Care Windows Laptop Technician Name Role Phone JOSE MANUEL PITT [...] Burgess's Name Patient's Relationship to Policy Burgess [facility] HEALTH PLAN MEDICARE SUPPLEMEN BETY MEDIC ARE SUPPL EMENT A Feb 18, 2022 SUPP1 [id number] GINA DE LA ROSA PATIENT [facility] MED PREFER/SEN IOR CARE MEDICARE SUPPLEMEN BETY MEDIC ARE SUPPL EMENT A Feb 18, 2021 SUPP1 [id number] [phone] GINA DE LA ROSA PATIENT Selected Encounter This section includes the information on record at [place] for the Encounter. Date/Time Encounter Type Encounter Description Reason Provider Source July 08, 2023 07:00 AM PSYTX W PT 45 MINUTES [facility] - [place] ICD-10-CM F43.12 Post-traumatic stress disorder, chronic MOISES PADILLA Encounter Template Text not used by [place] Assessments - Encounter Diagnoses This section includes the primary and secondary diagnoses documented for the Encounter. Date/Time Primary/Secondary Diagnosis Diagnosis Name Provider Source July 08, 2023 07:55 AM PRIMARY Post-traumatic stress disorder, chronic MOISES PADILLA [place] [facility] [place] [facility] July 08, 2023 07:55 AM SECONDARY Cerebral infarction, unspecified MOISES PADILLA [place] [facility] [place] [facility] July 08, 2023 07:55 AM SECONDARY Persistent mood [affective] disorder, unspecified MOISES PADILLA [place] [facility] [place] [facility] July 08, 2023 07:55 AM SECONDARY Unsp symptoms and signs w cognitive functions and awareness [facility]ES [facility]ILL[facility] [place] [facility] Plan of Treatment: Future Appointments (+ 6 months) and Future Tests (+/- 45 days) The Plan of Treatment section includes future care activities for the patient from all [place] treatmentfacilities. This section includes future appointments and future orders which are active, pending or scheduled. Future Appointments This section includes appointments that were scheduled to occur 6 months from the date of the Encounter, up to a maximum of 20 appointments. The data comes from all [place] treatment facilities. Appointment Date/Time Appointment Type Appointme nt Facility Name Jul 22, 2023 07:00 AM AMBULATORY - PSYCHIATRY [place] [facility] [place] [facility] Jul 22, 2023 08:00 AM AMBULATORY - NEUROLOGY [place] [facility] [place] [facility] Jul 25, 2023 01:30 PM AMBULATORY - PSYCHIATRY [place] [facility] [place] [facility] Jul 29, 2023 07:00 AM AMBULATORY - PSYCHIATRY [place] [facility] [place] [facility] Jul 29, 2023 08:30 AM AMBULATORY - MEDICINE IN [place] [facility] [place] [facility] Aug 21, 2023 10:00 AM AMBULATORY - MEDICINE [facility] Sep 02, 2023 07:00 AM AMBULATORY - PSYCHIATRY [place] [facility] [place] [facility] Sep 09, 2023 05:00 PM AMBULATORY - PSYCHIATRY [place] [facility] [place] [facility] Sep 11, 2023 09:00 AM AMBULATORY - PSYCHIATRY [place] [facility] [place] [facility] Sep 19, 2023 01:30 PM AMBULATORY - PSYCHIATRY [place] [facility] [place] [facility] Sep 25, 2023 09:00 AM AMBULATORY - PSYCHIATRY [facility] [place] [facility] Sep 30, 2023 07:00 AM AMBULATORY - PSYCHIATRY [facility] [place] [facility] Oct 02, 2023 09:00 AM AMBULATORY - PSYCHIATRY [facility] [place] [facility] Oct 09, 2023 09:00 AM AMBULATORY - PSYCHIATRY [facility] [place] [facility] Oct 16, 2023 09:00 AM AMBULATORY - PSYCHIATRY [facility] [place] [facility] Oct 23, 2023 09:00 AM AMBULATORY - PSYCHIATRY [facility] [place] [facility] Oct 28, 2023 07:00 AM AMBULATORY - PSYCHIATRY [facility] [place] [facility] Oct 28, 2023 08:00 AM AMBULATORY - NEUROLOGY [facility] [place] [facility] Oct 28, 2023 09:30 AM AMBULATORY - PSYCHIATRY [facility] [place] [facility] Oct 30, 2023 09:00 AM AMBULATORY - PSYCHIATRY [facility] [place] [facility] Social History: Smoking Status (Most current) and Tobacco Use (All prior to encounter date) This section includes the most current, and the historical, smoking and tobacco- related health factors from the [place] facility where the Encounter took place. Current Smoking Status This section includes the most current smoking, or tobacco-related health factor, from the [place] facility where the Encounter took place. Date/Time Current Smoking Status Comment Nurys ity Apr 15, 2023 07:00 AM VA-TOBACCO [facility] [place] [facility] Tobacco Use History This section includes a history of the smoking, or tobacco-related health factors, that were collected on or before the date of the Encounter. The data comes from the [place] facility where the Encounter took place. Date/Time Smoking Status/Tobacco Use Comment F acility Apr 15, 2023 07:00 AM VA-TOBACCO QUIT 15 YRS OR MORE [facility] [place] [facility] Apr 24, 2022 07:00 AM VA-TOBACCO FORMER USER [facility] [place] [facility] Apr 24, 2022 07:00 AM VA-TOBACCO QUIT 15 YRS OR MORE [facility] [place] [facility] Apr 27, 2021 03:00 PM VA-TOBACCO FORMER USER [facility] [place] [facility] Apr 27, 2021 03:00 PM VA-TOBACCO QUIT 15 YRS OR MORE IN [facility] [place] [facility] Mar 17, 2020 03:00 PM VA-TOBACCO FORMER USER IN [facility] [place] [facility] Mar 17, 2020 03:00 PM VA-TOBACCO QUIT 15 YRS OR MORE IN [facility] [place] [facility] Mar 31, 2019 09:04 AM VA-TOBACCO FORMER USER IN [facility] [place] [facility] Mar 31, 2019 09:04 AM VA-TOBACCO QUIT 15 YRS OR MORE IN [facility] [place] [facility] Encounter Notes: All associated encounter notes This section contains the clinical notes associated to the Encounter. Date/Time Encounter Note(s) Provider Source July 08, 2023 06:53 AM PSYCHOLOGY NOTE: LOCAL TITLE: PSYCHOLOGY NOTE STANDARD TITLE: PSYCHOLOGY NOTE DATE OF NOTE: JULY 08, 2023@06:53 ENTRY DATE: JULY 08, 2023@06:53:43 AUTHOR: MOISES PADILLA COSIGNER: URGENCY: STATUS: COMPLETED PSYCHOLOGY NOTE Has ADDENDA VISIT DURATION 45 minutes DIAGNOSES: Persistent mood disorder, unspecified PTSD, chronic Cognitive Disorder (History of) Cerebral Infarction, Unspecified PRESENTING PROBLEMS: [place] presented on time and re-engaged in treatment as usual, focusing on marital and family discord as well as anger management. SESSION FOCUS: Aury described new family conflicts which have unfolded since our last session. This time it involved his son and his son's . He reportedly that his Carlyn has been continuing with his own therapy and as a result she decided to sit down and talk with their son about the ongoing rift between her and Broderick's family. Although this went well, it ultimately ended up in a large argument with his own over this meeting. We processed his reactions and his role in the dynamic, as he tries to mediate and support Carlyn. Additionally, [place]'s anger/defensiveness seems to have been triggered based on hearing that his brother said I'm concerned about [Broderick's] declining health. [place] initially described irritation that his brother never shows him any concern. He also recognized some defensiveness around the phrase declining health . Perspective taking was tried as was challenging cognitive distortions. 's tendency to become defensive at any compassion or sympathy towards him, was in play and he did begin to recognize this through our conversation. Lastly, we spoke about how to accept his 's offer to see his brother again at face value, even though he mistrusts her intentions. ASSESSMENT: BRIEF ASSESSMENT OF MENTAL STATUS: 1. [...] or delusions): Yes 8. Mood was normal: euthymic Other Observations: RISK ASSESSMENT: Denies current suicidal ideation Denies current homicidal ideation RTCs: F2F ssns E/O/Week /nicole/ Moises Padilla PsyD Staff Psychologist Signed: 07/08/2023 07:55 07/08/2023 ADDENDUM STATUS: COMPLETED was identified by visual recognition and name. /nicole/ Moises Padilla PsyD Staff Psychologist Signed: 07/08/2023 08:00 MOISES PADILLA [facility]
--- OUTSIDE RECORDS SUMMARY | 2024-05-05 07:43 | XMS_ITS | Encounter Summary ---
Author Name [facility] [place] Organization [facility] [place] Address [address] [place] [address] Care Team Providers Care Can Filler Name Role Phone JOSE MANUEL PITT Primary [...] SUPPL EMENT A Feb 18, 2022 SUPP1 [id number] GINA DE LA ROSA PATIENT [facility] MED PREFER/SEN IOR CARE MEDICARE SUPPLEMEN BETY MEDIC ARE SUPPL EMENT A Feb 18, 2021 SUPP1 [id number] GINA DE LA ROSA PATIENT Selected Encounter This section includes the information on record at [place] for the Encounter. Date/Time Encounter Type Encounter Description Reason Provider Source Oct 28, 2023 07:00 AM PSYTX W PT 45 MINUTES [facility] - IND ICD-10-CM F43.12 Post-traumatic stress disorder, chronic MOIESS PADILLA Encounter Template Text not used by [place] Assessments - Encounter Diagnoses This section includes the primary and secondary diagnoses documented for the Encounter. Date/Time Primary/Secondary Diagnosis Diagnosis Name Provider Source Oct 28, 2023 07:58 AM PRIMARY Post-traumatic stress disorder, chronic MOISES PADILLA [place] [facility] [place] [facility] Oct 28, 2023 07:58 AM SECONDARY Cerebral infarction, unspecified MOISES PADILLA [place] [facility] [place] [facility] Oct 28, 2023 07:58 AM SECONDARY Persistent mood [affective] disorder, unspecified MOISES PADILLA [place] [facility] [place] [facility] Oct 28, 2023 07:58 AM SECONDARY Unsp symptoms and signs w cognitive functions and awareness [facility]ILL[facility] [place] [facility] Plan of Treatment: Future Appointments (+ 6 months) and Future Tests (+/- 45 days) The Plan of Treatment section includes [facility] This section includes future appointments and future orders which are active, pending or scheduled. Future Appointments This section includes appointments that were scheduled to occur 6 months from the date of the Encounter, up to a maximum of 20 appointments. The data comes from all [place] treatment facilities. Appointment Date/Time Appointment Type Appointme nt Facility Name Oct 30, 2023 09:00 AM AMBULATORY - PSYCHIATRY [place] [facility] [place] [facility] Nov 06, 2023 09:00 AM AMBULATORY - PSYCHIATRY [place] [facility] [place] [facility] Nov 13, 2023 09:00 AM AMBULATORY - PSYCHIATRY [place] [facility] [place] [facility] Nov 19, 2023 07:00 AM AMBULATORY - PSYCHIATRY [facility] [place] [facility] Nov 20, 2023 09:00 AM AMBULATORY - PSYCHIATRY [place] [facility] [place] [facility] Nov 27, 2023 09:00 AM AMBULATORY - PSYCHIATRY [place] [facility] [place] [facility] Dec 04, 2023 09:00 AM AMBULATORY - PSYCHIATRY [facility] [place] [facility] Dec 11, 2023 09:00 AM AMBULATORY - PSYCHIATRY [facility] [place] [facility] Dec 16, 2023 09:30 AM AMBULATORY - PSYCHIATRY [place] [facility] [place] [facility] Dec 18, 2023 09:00 AM AMBULATORY - PSYCHIATRY [place] [facility] [place] [facility] Dec 19, 2023 07:30 AM AMBULATORY - MEDICINE [facility] [place] [facility] Dec 23, 2023 07:00 AM AMBULATORY - PSYCHIATRY [facility] [place] [facility] Dec 25, 2023 09:00 AM AMBULATORY - PS[facility]CHIATRY [facility] [place] [facility] Jan 01, 2024 09:00 AM AMBULATORY - PSYCHIATRY [facility] [place] [facility] Jan 08, 2024 09:00 AM AMBULATORY - PSYCHIATRY [facility] [place] [facility] Jan 09, 2024 09:30 [facility] Jan 14, 2024 07[facility]00 AM AMBULATORY - PSYCHIATRY [facility] [place] [facility] Jan 20, 2024 08:30 AM AMBULATORY - NEUROLOGY [facility] [place] [facility] Jan 22, 2024 09:00 AM AMBULATORY - PSYCHIATRY [facility] [place] [facility] Jan 27, 2024 01:30 PM AMBULATORY - PSYCHIATRY [facility] [place] [facility] Active, Pending, and Scheduled Orders This [...] 02:36 PM Consult Order COMMUNITY CARE-UROLOGY Cons Straw Hat Washer Operator's Choice [facility] [place] [facility] Oct 28, 2023 01:47 PM Consult Order COMMUNITY CARE-NEUROLOGY Cons Straw [employer] Washer Operator's Choice [facility] [place] [facility] Vital Signs: All taken on the encounter date This section contains inpatient and outpatient Vital Signs collected on the date of the Encounter. Date/Time Temperature Pulse Blood Pressure Respiratory Rate SP02 Pain Height Weight Body Mass Index Source Oct 28, 2023 08:15 AM 130/82 [place] [facility] [place] [facility] Oct 28, 2023 07:58 AM 96 8 247 35 [facility] [place] [facility] Oct 28, 2023 07:58 AM 64 148/88 20 [facility] [place] [facility] Social History: Smoking Status (Most current) [...] 15, 2023 07:00 AM VA-TOBACCO FORMER USER [place] [facility] [place] [facility] Tobacco Use History This section includes a history of the smoking, or tobacco-related health factors, that were collected on or before the date of the Encounter. The data comes from the [place] facility where the Encounter took place. Date/Time Smoking Status/Tobacco Use Comment [facility] Apr 15, 2023 07:00 AM VA-TOBACCO QUIT 15 YRS OR MORE [facility] [place] [facility] Apr 24, 2022 07:00 AM VA-TOBACCO FORMER USER [facility] [place] [facility] Apr 24, 2022 07:00 AM VA-TOBACCO QUIT 15 YRS OR MORE [facility] [facility] Apr 27, 2021 03:00 PM VA-TOBACCO FORMER USER [facility] [place] [facility] Apr 27, 2021 03:00 PM VA-TOBACCO QUIT 15 YRS OR MORE [facility] [place] [facility] Mar 17, 2020 03:00 PM VA-TOBACCO FORMER USER [facility] [place] [facility] Mar 17, 2020 03:00 PM VA-TOBACCO QUIT 15 YRS OR MORE [facility] [place] [facility] Mar 31, 2019 09:04 AM VA-TOBACCO FORMER USER [facility] [place] [facility] Mar 31, 2019 09:04 AM VA-TOBACCO QUIT 15 YRS OR MORE [place] [facility] [place] [facility] Encounter Notes: All associated encounter notes This section contains the clinical notes associated to the Encounter. Date/Time Encounter Note(s) Provider Source Oct 28, 2023 06:57 AM PSYCHOLOGY NOTE: LOCAL TITLE: PSYCHOLOGY NOTE STANDARD TITLE: PSYCHOLOGY NOTE DATE OF NOTE: OCT 28, 2023@06:57 ENTRY DATE: OCT 28, 2023@06:57:42 AUTHOR: MOISES PADILLA COSIGNER: URGENCY: STATUS: COMPLETED Aury was identified by Visual recognition and patient name. VISIT DURATION 45 minutes DIAGNOSES: Persistent mood disorder, unspecified PTSD, chronic Cognitive Disorder (History of) Cerebral Infarction, Unspecified PRESENTING PROBLEMS: Aury presented on time and resumed treatment as usual reviewing several psychosocial updates. SESSION FOCUS: Aury began by sharing that he was unable to complete the anticipated fishing trip with his son, due to trauma triggers getting in the way. Despite his prior [place] ship related trauma, Aury was hopeful that he could complete this fishing trip, especially since he made great progress with this provider previously in [place] treatment around it. However when he got there, I realized that the boat was a lot smaller than I thought. In addition to the smaller boat, Aury reported that the seas were very choppy so the boat was moving around a lot. As a result he told his son that he can't get on and they put off the trip. Empathy was provided and we processed the experience during and after. He described a sense of panic before getting on, then a sense of guilt for letting his son down. However, his son, who knows about his trauma, was understanding. Aury was reminded of the tenants of PE and how he moving towards exposure (in moderation) rather than avoidance can help in the long run. As a result he hopes to try it again but on a much larger boat that is less susceptible to movement from the seas. The remainder of the session was spent reviewing recent medical, family, and mental health related updates. He continues to struggle with family discord, but his marriage communication seems to be going better. Aury has both neurology and psychiatry appointments today after this appointment, and his intends to help him sort out a medication problem with the pharmacy as well. ASSESSMENT: BRIEF ASSESSMENT OF MENTAL STATUS: 1. Appearance (grooming, attire, apparent age) within normal limits: Yes 2. Thought content was organized and goal directed: Yes 3. Speech was coherent and unimpaired: Yes 4. Affect was appropriate and unremarkable: Full, tearful throughout 5. Demeanor was calm, with no signs of agitation or restlessness: Yes 6. Sleep was largely unimpaired and restful: Yes 7. No evidence of psychosis (hallucinations or delusions): Yes 8. Mood was normal: dysphoric, anxious Other Observations: RISK ASSESSMENT: Denies current suicidal ideation. I would never kill myself Denies current homicidal ideation RTCs: F2F ssns monthly. Sexual Orientation: The patient thinks of their sexual orientation as: Straight or Heterosexual /es/ Moises Padilla PsyD Staff Psychologist Signed: 10/28/2023 07:58 MOISES PADILLA [facility]
--- OUTSIDE RECORDS SUMMARY | 2024-05-05 07:43 | XMS_ITS ---
Author Name [facility] [place] Address [address] [place] [address] Care Team Providers Care Solderer Furnace Name Role Phone JOSE MANUEL PITT Primary [...] Burgess's Name Patient's Relationship to Policy Burgess [facility] HEALTH PLAN MEDICARE SUPPLEMEN BETY MEDIC ARE SUPPL EMENT A Feb 18, 2022 SUPP1 [id number] GINA DE LA ROSA PATIENT [facility] PREFER/SEN IOR CARE MEDICARE SUPPLEMEN BETY MEDIC ARE SUPPL EMENT A Feb 18, 2021 SUPP1 [id number] GINA DE LA ROSA PATIENT Selected Encounter This section includes the information on record at [place] for the Encounter. Date/Time Encounter Type Encounter Description Reason Provider Source Sep 19, 2023 01:30 PM OFFICE O/P EST MOD 30 MIN [facility] - IND ICD-10-CM F34.9 Persistent mood [affective] disorder, unspecified [employer] Encounter Template Text not used by [place] Assessments - Encounter Diagnoses This section includes the primary and secondary diagnoses documented for the Encounter. Date/Time Primary/Secondary Diagnosis Diagnosis Name Provider Source Sep 19, 2023 01:59 PM PRIMARY Persistent mood [affective] disorder, unspecified [place] [facility] [place] [facility] Sep 19, 2023 01:59 PM SECONDARY Post-traumatic stress disorder, chronic LACHELLE PIERREGUY Teri Chan [place] [facility] [place] [facility] Sep 19, 2023 01:59 PM SECONDARY Unsp symptoms and signs w cognitive functions and awareness [place] [facility] [facility] Plan of Treatment: Future Appointments (+ 6 months) and Future Tests (+/- 45 days) The Plan of Treatment section includes future care activities for the patient from [facility] [place] [facility]. This section includes future appointments and future orders which are active, pending or scheduled. Future Appointments This section includes appointments that were scheduled to occur 6 months from the date of the Encounter, up to a maximum of 20 appointments. The data comes from all [place] treatment facilities. Appointment Date/Time Appointment Type Appointme nt Facility Name Sep 25, 2023 09:00 AM AMBULATORY - [facility]IAT[facility] [place] [facility] Sep 30, 2023 07:00 AM AMBULATORY - PS[facility]CHIATRY [facility] [place] [facility] Oct 02, 2023 09:00 AM AMBULATORY - PSYCHIATRY [facility] [facility] Oct 09, 2023 09:00 AM AMBULATORY - PSYCHIATRY [facility] [facility] Oct 16, 2023 09:00 AM AMBULATORY - PS[facility]CHIATRY [facility] [place] [facility] Oct 23, 2023 09:00 AM AMBULATORY - PSYCHIATRY [facility] [place] [facility] Oct 28, 2023 07:00 AM AMBULATORY - PSYCHIATRY [facility] [place] [facility] Oct 28, 2023 08:00 AM AMBULATORY - NEUROLOGY [facility] [place] [facility] Oct 28, 2023 09:30 AM AMBULATORY - PS[facility]CHIATRY [facility] [place] [facility] Oct 30, 2023 09:00 AM AMBULATORY - PSYCHIATRY [facility] [place] [facility] Nov 06, 2023 09:00 AM AMBULATORY - PSYCHIATRY [facility] [place] [facility] Nov 13, 2023 09:00 AM AMBULATORY - PSYCHIATRY [facility] [facility] Nov 19, 2023 07:00 AM AMBULATORY - PSYCHIATRY [facility] [place] [facility] Nov 20, 2023 09:00 AM AMBULATORY - PSYCHIATRY [facility] [facility] Nov 27, 2023 09:00 AM AMBULATORY - PSYCHIATRY [facility] [place] [facility] Dec 04, 2023 09:00 AM AMBULATORY - PSYCHIATRY [facility] [place] [facility] Dec 11, 2023 09:00 AM AMBULATORY - PSYCHIATRY [facility] [place] [facility] Dec 16, 2023 09:30 AM AMBULATORY - PSYCHIATRY [facility] [facility] Dec 18, 2023 09:00 AM AMBULATORY - PSYCHIATRY [facility] [place] [facility] Dec 19, 2023 07:30 AM AMBULATORY [place]ICINE [place] [facility] Active, Pending, and Scheduled Orders This section includes a listing of several types of active, pending, and scheduled orders, including clinic medications orders, diagnostic test orders, procedure orders and consult orders; where the start date of the order is 45 days before the date of the Encounter or 45 days after the date of theEncounter. The data comes from all [place] treatment facilities. Test Date/Time Test Type Test Details Facility Name Oct 25, 2023 02:36 PM Consult Order COMMUNITY CARE-UROLOGY Cons Marine Oiler's Choice [facility] [place] [facility] Oct 28, 2023 01:47 PM Consult Order COMMUNITY CARE-NEUROLOGY Cons Marine Oiler's Choice [facility] Social History: Smoking Status (Most [...] Encounter took place. Date/Time Current Smoking Status Lee Ann ko Apr 15, 2023 07:00 AM VA-TOBACCO [facility] Tobacco Use History This section includes a history of the smoking, or tobacco-related health factors, that were collected on or before the date of the Encounter. The data comes from the [place] facility where the Encounter took place. Date/Time Smoking Status/Tobacco Use Comment F acility Apr 15, 2023 07:00 AM VA-TOBACCO QUIT 15 YRS OR MORE [facility] [place] [facility] Apr 24, 2022 07:00 AM VA-TOBACCO FORMER USER [facility] [place] [facility] Apr 24, 2022 07:00 AM VA-TOBACCO QUIT 15 YRS OR MORE [facility] [facility] Apr 27, 2021 03:00 PM VA-TOBACCO FORMER USER [facility] [place] [facility] Apr 27, 2021 03:00 PM VA-TOBACCO QUIT 15 YRS OR MORE [facility] [facility] Mar 17, 2020 03:00 PM VA-TOBACCO FORMER USER [facility] [place] [facility] Mar 17, 2020 03:00 PM VA-TOBACCO QUIT 15 YRS OR MORE [facility] [facility] Mar 31, 2019 09:04 AM VA-TOBACCO FORMER USER [facility] [facility] Mar 31, 2019 09:04 AM VA-TOBACCO QUIT 15 YRS OR MORE [place] [facility] [facility] Encounter Notes: All associated encounter notes This section contains the clinical notes associated to the Encounter. Date/Time Encounter Note(s) Provider Source Sep 19, 2023 01:43 PM PSYCHIATRY NOTE: LOCAL TITLE: PSYCHIATRY NOTE STANDARD TITLE: PSYCHIATRY NOTE DATE OF NOTE: SEP 19, 2023@13:43 ENTRY DATE: SEP 19, 2023@13:43:53 AUTHOR: SALLY PIERRE COSIGNER: URGENCY: STATUS: COMPLETED PSYCHIATRY FOLLOW UP VISIT TAJ DE LA ROSA is a 67yo MARITAL STATUS - WHITE MALE with a history of [employer] FROM Nov TO Nov INTERVAL HISTORY Mood is still low. Notes some anhedonia. Brexpiprazole was increased about 1.5-2 weeks ago. These low moods typically last 1-2 weeks and resolve. No SI. Ongoing foot movements, report used to have an arm movement which was dx'd as a tic. No major changes in sleep, still shifted early 8am-4am. They take of their grandkids every day for the summer. 13 and 10yo. CURRENT MEDICATIONS Active Outpatient Medications (including Supplies): [...] MENDEZ DM - Diabetes mellitus E11.9 05/07/2019 CARDONAMACARIO Gastro-esophageal reflux R69. 04/19/2019 KIRK COTTRELL Chronic renal disease N18.9 07/03/2019 CATRACHITA MENDEZ History of lacunar cerebrovascular 05/07/2019 MACARIO CARDONA Thoracic post-laminectomy syndrome 06/19/2019 CATRACHITA MENDEZ History [...] suicide attempt in 2005 and hospitalization at [facility] (overdose on morphine), also with an [...] dose of trazodone, but continued to have child watch attendant awakening which resolved with addition of clonidine at bedtime. Other pertinent medical hx includes CAD, s/p [place], s/p stents. Poorly controlled DM. Neuropathy, chronic renal disease. Failed back syndrome s/p multiple surgeries now managed with medical MJ and an implanted stimulator. Is in trauma informed anger management treatment with Dr. Padilla, and an I Rest group and finds this treatment very helpful. DIAGNOSIS: I. Mood Disorder II. Chronic PTSD [...] REFILLS/COVERAGE: Has refills FOLLOW UP IN CLINIC 1 mos TIME SPENT FACE TO FACE:25m TOTAL [...] this [facility] (local) and dispensed from another [place] or [facility] facility (remote) as well as [...] and updated. /nicole/ SALLY PIERRE PSYCHIATRIST Signed: 09/19/2023 13:59 SALLY PIERRE [place] [facility]
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
--- OUTSIDE RECORDS SUMMARY | 2024-05-05 07:43 | XMS_ITS ---
Author Name [facility] [place] [facility] [place] [facility] [place] [facility] [place] Address [address] [place] [address] Care Team Providers Care Equal Opportunity Assistant Name Role Phone JOSE MANUEL PITT Primary [...] Burgess's Name Patient's Relationship to Policy Burgess [facility] HEALTH PLAN MEDICARE SUPPLEMEN BETY MEDIC ARE SUPPL EMENT A Feb 18, 2022 [id number] GINA DE LA ROSA PATIENT [facility] PREFER/SEN IOR CARE MEDICARE SUPPLEMEN BETY MEDIC ARE SUPPL EMENT A Feb 18, 2021 SUPP1 [id number] [phone] GINA DE LA ROSA PATIENT Selected Encounter This section includes the information on record at [place] for the Encounter. Date/Time Encounter Type Encounter Description Reason Provider Source Mar 30, 2024 01:00 PM OFFICE O/P EST MOD 30 MIN [facility] - IND ICD-10-CM F34.9 Persistent mood [affective] disorder, unspecified [facility] Encounter Template Text not used by [place] Assessments - Encounter Diagnoses This section includes the primary and secondary diagnoses documented for the Encounter. Date/Time Primary/Secondary Diagnosis Diagnosis Name Provider Source Mar 30, 2024 05:57 PM PRIMARY Persistent mood [affective] disorder, unspecified LACHELLE STANFORDGUY Williamson Rocio [facility] [place] [facility] Mar 30, 2024 05:57 PM SECONDARY Post-traumatic stress disorder, chronic IGNACIOCYNTHIAVIVIANGUY Chan [facility] [place] [facility] Mar 30, 2024 05:57 PM SECONDARY Unsp symptoms and signs w cognitive functions and awareness LACHELLE STANFORDGUY Williamson Rocio [facility] [place] [facility] Plan of Treatment: Future Appointments (+ 6 months) and Future Tests (+/- 45 days) The Plan of Treatment section includes future care activities for the patient from all [place] treatmentfacilities. This section includes future appointments and future orders which are active, pending or scheduled. Future Appointments This section includes appointments that were scheduled to occur 6 months from the date of the Encounter, up to a maximum of 20 appointments. The data comes from all [place] treatment facilities. Appointment Date/Time Appointment Type Appointme nt Facility Name Apr 01, 2024 09:00 AM AMBULATORY [facility] [place] [facility] Apr 08, 2024 09:00 AM AMBULATORY [facility]AT[facility] [place] [facility] Apr 13, 2024 07:00 AM AMBULATORY [facility]AT[facility] [place] [facility] Apr 15, 2024 09:00 AM AMBULATORY [facility]AT[facility] [place] [facility] Apr 20, 2024 09:00 AM AMBULATORY [facility] NEUROLOGY [facility] [place] [facility] Apr 22, 2024 09:00 AM AMBULATORY [facility] [place] [facility] Apr 29, 2024 09:00 AM AMBULATORY [facility] [place] [facility] May 04, 2024 07:00 AM AMBULATORY [facility] PS[facility]AT[facility] [place] [facility] May 04, 2024 10:15 AM AMBULATORY [facility] MEDICINE [facility] [place] [facility] May 06, 2024 09:00 AM AMBULATORY [facility] PS[facility]AT[facility] [place] [facility] May 13, 2024 09:00 AM AMBULATORY [facility] PS[facility]AT[facility] [place] [facility] May 14, 2024 09:30 [facility] May 20, 2024 09:00 AM [facility] PS[facility]IAT[facility] [place] [facility] May 21, 2024 02:00 PM AMBULATORY [facility] MEDICINE [facility] [place] [facility] May 25, 2024 07:00 AM AMBULATORY - PS[facility]IAT[facility] [place] [facility] May 27, 2024 09:00 AM AMBULATORY - PS[facility]IATRY [facility] [place] [facility] Jun 01, 2024 01:00 PM AMBULATORY - PS[facility]IATRY [facility] [place] [facility] Jun 03, 2024 09:00 AM AMBULATORY [facility] [place] [facility] Jun 09, 2024 07:00 AM AMBULATORY - [place] [facility] [place] [facility] Jun 10, 2024 09:00 AM [facility] Active, Pending, and Scheduled Orders This section includes a listing of several types of active, pending, and scheduled orders, including clinic medications orders, diagnostic test orders, procedure orders and consult orders; where the start date of the order is 45 days before the date of the Encounter or 45 days after the date of theEncounter. The data comes from all [place] treatment facilities. Test Date/Time Test Type Test Details Facility Name Apr 27, 2024 12:00 AM Laboratory - Chemi stry Order OCCULT BLOOD FIT X1 SCREEN (MFP ONLY) STOOL FECES SP [facility] Social History: Smoking Status (Most current) and Tobacco Use (All prior to encounter date) This section includes the most current, and the historical, smoking and tobacco- related health factors from the [place] facility where the Encounter took place. Current Smoking Status This section includes the most current smoking, or tobacco-related health factor, from the [place] facility where the Encounter took place. Date/Time Current Smoking Status Comment Nurys ko Mar 30, 2024 07:00 AM VA-TOBACCO USE FOR TYRONE CIGARETTES [facility] Tobacco Use History This section includes a history of the smoking, or tobacco-related health factors, that were collected on or before the date of the Encounter. The data comes from the [place] facility where the Encounter took place. Date/Time Smoking Status/Tobacco Use Comment F acility Mar 30, 2024 07:00 AM VA-TOBACCO USE FOR TYRONE OTHER TYPE [facility] [place] [facility] Apr 15, 2023 07:00 AM VA-TOBACCO FORMER USER [facility] [place] [facility] Apr 15, 2023 07:00 AM VA-TOBACCO QUIT 15 YRS OR MORE [facility] [place] [facility] Apr 24, 2022 07:00 AM VA-TOBACCO FORMER USER [facility] [place] [facility] Apr 24, 2022 07:00 AM VA-TOBACCO QUIT 15 YRS OR MORE [facility] [place] [facility] Apr 27, 2021 03:00 PM VA-TOBACCO FORMER USER [facility] [place] [facility] Apr 27, 2021 03:00 PM VA-TOBACCO QUIT 15 YRS OR MORE [facility] [place] [facility] Mar 17, 2020 03:00 PM VA-TOBACCO FORMER USER [facility] [place] [facility] Mar 17, 2020 03:00 PM VA-TOBACCO QUIT 15 YRS OR MORE [facility] [place] [facility] Mar 31, 2019 09:04 AM VA-TOBACCO FORMER USER [facility] [place] [facility] Mar 31, 2019 09:04 AM VA-TOBACCO QUIT 15 YRS OR MORE [facility] [place] [facility] Encounter Notes: All associated encounter notes This section contains the clinical notes associated to the Encounter. Date/Time Encounter Note(s) Provider Source Mar 30, 2024 01:23 PM ACCOUNTING OF DISCLOSURES NOTE: LOCAL TITLE: STATE PRESCRIPTION DRUG MONITORING PROGRAM STANDARD TITLE: ACCOUNTING OF DISCLOSURES NOTE DATE OF NOTE: MAR 30, 2024@13:23:25 ENTRY DATE: MAR 30, 2024@13:23:25 AUTHOR: SALLY STANFORD EXP COSIGNER: URGENCY: STATUS: COMPLETED This PDMP query was submitted by Sally Stanford The clinical justification for this PDMP query is to review controlled substances prescribed outside of the [facility], and any additional information that may become available, as an important component of standard clinical care, and in accordance with [facility] policy. Patient information was shared with the [facility] [place]. No prescription(s) for controlled substances outside the [facility] were found in the last 90 days. /nicole/ SALLY STANFORD PSYCHIATRIST Signed: 03/30/2024 13:29 SALLY STANFORD [place] [facility] [place] [facility] Mar 30, 2024 01:12 PM PSYCHIATRY NOTE: LOCAL TITLE: PSYCHIATRY NOTE STANDARD TITLE: PSYCHIATRY NOTE DATE OF NOTE: MAR 30, 2024@13:12 ENTRY DATE: MAR 30, 2024@13:12:38 AUTHOR: SALLY STANFORD EXP COSIGNER: URGENCY: STATUS: COMPLETED PSYCHIATRY FOLLOW UP VISIT TAJ DE LA ROSA is a 68yo MARITAL STATUS - WHITE MALE with a history of [employer] FROM Nov TO Nov INTERVAL HISTORY Recovering from a 3 week URI. Doing well overall. is in treatment for Hodgkin's lymphoma but the treatment is going well. Sleep is a little disrupted, 5-8 hours. Some middle insomnia for 20min. Up at 5am. No problems on medications. Would like to continue current regimen. No change in foot movement. notes some sialorrhea when his head is tilted sideways, starting 2 weeks ago, while watching tv. No abnormal movements. CURRENT MEDICATIONS Active Outpatient Medications (including Supplies): AMMONIUM LACTATE 12% LOTION APPLY SMALL AMOUNT TOPICALLY ACTIVE AT BEDTIME FOR DRY IRRITATED SKIN UNDER OCCLUSION Indication: FOR DRY SKIN ARMODAFINIL 50MG TAB TAKE TWO TABLETS BY MOUTH EVERY ACTIVE MORNING Indication: TO IMPROVE WAKEFULNESS BREXPIPRAZOLE 2MG TAB TAKE ONE TABLET BY MOUTH ONCE DAILY ACTIVE Indication: MOOD CLONIDINE HCL 0.1MG TAB TAKE ONE TABLET BY MOUTH AT ACTIVE BEDTIME FOR Indication: INSOMNIA LIDOCAINE 5% PATCH APPLY 1 PATCH TOPICALLY EVERY 12 HOURS ACTIVE NEEDED (LEAVE PATCH ON FOR 12 HOURS, THEN REMOVE PATCH) Indication: FOR NERVE PAIN MIRABEGRON 25MG SA TAB TAKE ONE TABLET BY MOUTH ONCE DAILY HOLD ONABOTULINUMTOXINA 200 UNIT/FRANCISCO J INJ INJECT DIRECTED ACTIVE INTRAMUSCULARLY EVERY THREE MONTHS FOR MIGRAINE HEADACHES TRAZODONE HCL 100MG TAB TAKE TWO TABLETS BY MOUTH AT ACTIVE BEDTIME FOR Indication: INSOMNIA TROSPIUM CL 20MG TAB TAKE ONE TABLET BY MOUTH TWICE DAILY ACTIVE ON AN EMPTY STOMACH Non-VA AMLODIPINE BESYLATE 5MG TAB 5MG BY MOUTH ONCE DAILY ACTIVE Indication: FOR HIGH BLOOD PRESSURE Non-VA ATORVASTATIN CALCIUM 80MG TAB 80MG BY [...] MOUTH TWICE DAILY ACTIVE 20 Total Medications SUPPLEMENTS: ALLERGIES: METFORMIN MEDICAL HISTORY Active Problem Cognitive disorder R41.9 12/13/2022 SALLY STANFORD Hypoglycemia E16.2 04/30/2022 SWEETIEJOSE MANUEL Mood disorder F34.9 11/21/2021 SALLY STANFORD Migraine G43.909 01/30/2021 MIGUEL CARRILLO Hemiparesis I69.959 [...] multiple providers R6 04/15/2019 KIRK COTTRELL BMI: 34.5 PREVIOUS PSYCHIATRIC MEDICATION TRIALS AND RESPONSE Ambien--sleepwalking Fluoxetine Bupropion Trazodone melatonin not helpful Hydroxyzine--not helpful, maybe with sleepwalking Aripiprazole--helpful for depression, some initial activation. +blurry vision and urinary frequency. Lurasidone 20mg not helpful for mood. Brexpiprazole 1mg--helpful for mood, but now with possible TD in left foot armodafinil--helpful for focus, prioritizing, mood MENTAL STATUS EXAM: Awake, alert, calm, cooperative, well groomed, dressed appropriately, wearing a cap. Glasses, jay. Not restless. Left foot is restless and moving periodically. No acute distress. Pleasant. Speech nml r/r/r/v/p. Not pressured, loud, or fast. Mood steady euthymic Affect: reactive Thought Process Linear, logical, coherent Thought Content: [...] suicide attempt in 2005 and hospitalization at [facility] (overdose on morphine), also with an [...] dose of trazodone, but continued to have drawer maker awakening which resolved with addition of clonidine at bedtime. Other pertinent medical hx includes CAD, s/p MT, s/p stents. Poorly controlled DM. Neuropathy, chronic [...] only appeared after the functional strokes. PLAN -cont brexpiprazole 3mg daily. Monitor TD symptoms--Left Foot. -neuro consult--follow up with imaging, migraines, possible TD -cont armodafinil to 100mg, target mood and cognition--interaction with Plavix decreases levels, so will keep dose low. Consider a switch to methylphenidate to avoid the interaction. -continue trazodone 200 mg nightly -continue clonidine 0.1 mg at bedtime for sleep -continue melatonin 5 mg prn mid-night awakening--can use PRN -cont in trauma informed anger management treatment with Dr. Padilla REFILLS/COVERAGE: Has refills FOLLOW UP IN CLINIC 2 mos TIME SPENT FACE TO FACE:25m TOTAL [...] this [facility] ([facility]) and dispensed from another [place] or [facility] facility (remote) as well as [...] List was reviewed and updated. /nicole/ SALLY STANFORD PSYCHIATRIST Signed: 03/30/2024 17:57 [facility]
--- OUTSIDE RECORDS SUMMARY | 2024-05-05 07:43 | XMS_ITS | Encounter Summary ---
Author Organization [facility], Address [address] [place] [address] Phone Care Team Providers Care Tank Processor Name Role Phone Luis F Lozada DO Primary Care Provide r Encounter Details Date Type Department Care Team (Late st Contact Info) Description 08/02/2021 Documentation Only [facility] [address] [place] [address] Camilo Terrell MD [address] [place] [address] [place] [address] Social History Tobacco Use Types [...] Visit [facility] [address] [address] Camilo Terrell MD [address] [place] [address] documented as of this encounter Visit Diagnoses Not on filedocumented in this encounter Care Teams Tank Processor Relationship Specialty Start Date End Date Luis F Lozada DO [address] [facility] [address] [place] [address] PCP - General Internal Medicine 02/03/21 documented as of this encounter
--- OUTSIDE RECORDS SUMMARY | 2024-05-05 07:43 | XMS_ITS | Encounter Summary ---
Author Name [facility] [facility] [place] [facility] [place] Address [address] [place] [address] Care Team Providers Care Golf Sales Associate Name Role Phone JOSE MANUEL PITT Primary [...] SUPPL EMENT A Feb 18, 2022 SUPP1 [id number] GINA DE LA ROSA PATIENT [facility] MED PREFER/SEN IOR CARE MEDICARE SUPPLEMEN BETY MEDIC ARE SUPPL EMENT A Feb 18, 2021 SUPP1 [id number] GINA DE LA ROSA PATIENT Selected Encounter This section includes the information on record at [place] for the Encounter. Date/Time Encounter Type Encounter Description Reason Provider Source Jan 14, 2024 07:00 AM PSYTX W PT 45 MINUTES [facility] - IND ICD-10-CM F43.12 Post-traumatic stress disorder, chronic MOISES PADILLA Encounter Template Text not used by [place] Assessments - Encounter Diagnoses This section includes the primary and secondary diagnoses documented for the Encounter. Date/Time Primary/Secondary Diagnosis Diagnosis Name Provider Source Jan 14, 2024 07:53 AM PRIMARY Post-traumatic stress disorder, chronic MOISES PADILLA [place] [facility] [place] [facility] Jan 14, 2024 07:53 AM SECONDARY Cerebral infarction, unspecified MOISES PADILLA [place] [facility] [place] [facility] Jan 14, 2024 07:53 AM SECONDARY Persistent mood [affective] disorder, unspecified MOISES PADILLA [place] [facility] [place] [facility] Jan 14, 2024 07:53 AM SECONDARY Unsp symptoms and signs w cognitive functions and awareness BETHMOISES Williamson [place] [facility] [facility] [place] [facility] Plan of Treatment: Future Appointments (+ 6 months) and Future Tests (+/- 45 days) The Plan of Treatment section includes future care activities for the patient from all [place] [facility] This section includes future appointments and future orders which are active, pending or scheduled. Future Appointments This section includes appointments that were scheduled to occur 6 months from the date of the Encounter, up to a maximum of 20 appointments. The data comes from all [place] treatment facilities. Appointment Date/Time Appointment Type Appointme nt Facility Name Jan 20, 2024 08:30 AM AMBULATORY - [place]UROLOGY [place] [facility] [place] [facility] Jan 22, 2024 09:00 AM AMBULATORY - PSYCHIATRY [place] [facility] [place] [facility] Jan 27, 2024 01:30 PM AMBULATORY - PSYCHIATRY [place] [facility] [place] [facility] Jan 29, 2024 09:00 AM AMBULATORY - PSYCHIATRY [place] [facility] [place] [facility] Feb 05, 2024 09:00 AM AMBULATORY - PSYCHIATRY [place] [facility] [place] [facility] Feb 10, 2024 07:00 AM AMBULATORY - PSYCHIATRY [place] [facility] [place] [facility] Feb 24, 2024 07:00 AM AMBULATORY - PSYCHIATRY [place] [facility] [place] [facility] Mar 04, 2024 09:00 AM AMBULATORY - PSYCHIATRY [place] [facility] [place] [facility] Mar 11, 2024 09:00 AM AMBULATORY - PSYCHIATRY [place] [facility] [place] [facility] Mar 18, 2024 09:00 AM AMBULATORY - PSYCHIATRY [place] [facility] [place] [facility] Mar 25, 2024 09:00 AM AMBULATORY [...] PSYCHIATRY [facility] [place] [facility] Apr 29, 2024 09:00 AM AMBULATORY - PS[facility]CHIATRY [facility] [place] [facility] Lab Results: +/- 30 days of [...] Range Comment Dec 19, 2023 07:55 AM [facility] FOLATE (WROX) Specimen Type: SERUM No comment entered. Ordering Provider: NAV STANFORD Report Released Date/Time: Oct 28, 2023 09:59 AM Reporting [facility] [place] [facility] [address] [address] Performing Lab: [facility] [place] [facility] [address] [address] FOLATE (WROX) 9.07 ng/mL >5.2 Dec 19, 2023 07:55 AM [facility] [place] [facility] TSH Specimen Type: SERUM No comment entered. Ordering Provider: NAV STANFORD Report Released Date/Time: Oct 28, 2023 09:59 AM Reporting Lab: [facility] [address] [facility] [address] Performing Lab: [facility] [place] [facility] [address] [address] TSH 1.09 u[IU]/mL 0.35-5.00 Dec 19, 2023 07:55 AM [facility] VITAMIN B12 Specimen Type: SERUM No comment entered. Ordering Provider: NAV STANFORD Report Released Date/Time: Oct 28, 2023 09:59 AM Reporting Lab: [facility]USE[address] [address] Performing Lab: [facility] [address] VITAMIN B12 297 pg/mL 200-900 Dec 19, 2023 07:55 AM [facility] VITAMIN D (25-[place]) Specimen Type: SERUM No comment entered. Ordering Provider: NAV STANFORD Report Released Date/Time: Oct 28, 2023 09:59 AM Reporting Lab: [facility]PITALUSETS [address] [address] Performing Lab: [facility]ITAL[facility]ETS [address] [address] VITAMIN D (25-[place]) 38 ng/mL 20-50 Dec 19, 2023 07:55 AM [facility] HEMOGLOBIN A1C PANEL Specimen Type: BLOOD Comment: Values obtained from A1C measurements can vary. For atypical A1C assays, a reported value of 7.0 could actually be between 6.72 and 7.28 if measured by a reference method. A reported value of 9.0 could actually be between 8.73 and 9.27. Ref: http://www.ngs p.org/CAPdata. asp Ordering Provider: NAV STANFORD Report Released Date/Time: Dec 16, 2023 09:50 AM Reporting Lab: [facility] [address] [address] Performing Lab: [address] [address] HEMOGLOBIN A1C 5.5 4.0-5.6 Dec 19, 2023 07:55 AM [facility] LIPID PANEL FASTING Specimen Type: SERUM No comment entered. Ordering Provider: NAV STANFORD Report Released Date/Time: Dec 16, 2023 09:50 AM Reporting Lab: [address] [address] Performing Lab: [address] [address] CHOLESTEROL 113 mg/dL TRIGLYCERIDE 85 mg/dL 0-150 LDL calculated 50 mg/dL 0-129 CHOL/HDL 2.5 HDL CHOLESTEROL 46 mg/dL 40-60 Dec 19, 2023 07:55 AM [facility] BASIC METABOLIC PANEL (fasting) Specimen Type: SERUM No comment entered. Ordering Provider: NAV STANFORD Report Released Date/Time: Dec 16, 2023 09:50 AM Reporting Lab: [address] [address] Performing Lab: [address] [address] UREA NITROGEN 18 mg/dL 7-25 GLUCOSE 117 [...] 15, 2023 07:00 AM VA-TOBACCO FORMER USER [facility] Tobacco Use History This section includes a history of the smoking, or tobacco-related health factors, that were collected on or before the date of the Encounter. The data comes from the [place] facility where the Encounter took place. Date/Time Smoking Status/Tobacco Use Comment F acility Apr 15, 2023 07:00 AM VA-TOBACCO QUIT 15 YRS OR MORE [place] [facility] [place] [facility] Apr 24, 2022 07:00 AM VA-TOBACCO FORMER USER [place] [facility] [place] [facility] Apr 24, 2022 07:00 AM VA-TOBACCO QUIT 15 YRS OR MORE [facility] [place] [facility] Apr 27, 2021 03:00 PM VA-TOBACCO FORMER USER [facility] [place] [facility] Apr 27, 2021 03:00 PM VA-TOBACCO QUIT 15 YRS OR MORE [facility] [place] [facility] Mar 17, 2020 03:00 PM VA-TOBACCO FORMER USER [facility] [place] [facility] Mar 17, 2020 03:00 PM VA-TOBACCO QUIT 15 YRS OR MORE [facility] [place] [facility] Mar 31, 2019 09:04 AM VA-TOBACCO FORMER USER [facility] [place] [facility] Mar 31, 2019 09:04 AM VA-TOBACCO QUIT 15 YRS OR MORE [place] [facility] [facility] Encounter Notes: All associated encounter notes This section contains the clinical notes associated to the Encounter. Date/Time Encounter Note(s) Provider Source Jan 14, 2024 06:54 AM PSYCHOLOGY NOTE: LOCAL TITLE: PSYCHOLOGY NOTE STANDARD TITLE: PSYCHOLOGY NOTE DATE OF NOTE: JAN 14, 2024@06:54 ENTRY DATE: JAN 14, 2024@06:55:03 AUTHOR: MOISES PADILLA COSIGNER: URGENCY: STATUS: COMPLETED [place] was identified by Visual recognition and patient name. VISIT DURATION 45 minutes DIAGNOSES: Persistent mood disorder, unspecified PTSD, chronic Cognitive Disorder (History of) Cerebral Infarction, Unspecified PRESENTING PROBLEMS: presented on time and we began by checking in on his mood, since the last session where he appeared depressed and attributed it to recent medication changes. He presented with high energy and euphoric, explaining how recent med changes have improved things for him. SESSION FOCUS: Since our last session, reportedly waited the 7 full days at the lower brexpiprazole dose, (where he was experiencing depressed mood, amotivation, lethargy, etc. ) before reaching out to Dr. Stanford. Since then he reported that she raised the dose back to 2mg and I feel totally different . [place] presented today as high energy and euphoric. He described that he has resumed talking ambitious hobbies and projects, seeing them through to completion. This provider cautioned him about finding a middle ground that is realistic and sustainable. When asked about sleep [place] did admit that his sleep has been poor lately while on the med, such that he has less of a need for it than before. He denied any change with his leg restlessness at either the 1 or 2mg dose. I know this is a peak, it will balance out and come down next week probably . plans to talk with Dr. Stanford about it at their next scheduled meeting 01/26. Now that he is feeling good, we discussed any helpful tips he can remember to tell himself during any future depressive episodes. We discussed the benefits of remembering that it doesn't last forever, and the gains he gets from having consistent projects and hobbies to turn to, even when motivation is low. We ended with a discussion about their Thanksgiving plans of serving meals to Veterans for free at their yazdanism. ASSESSMENT: BRIEF ASSESSMENT OF MENTAL STATUS: 1. [...] /nicole/ Moises Padilla PsyD Staff Psychologist Signed: 01/14/2024 07:55 MOISES PADILLA [place] [facility]
--- OUTSIDE RECORDS SUMMARY | 2024-05-05 07:43 | XMS_ITS | Encounter Summary ---
Author Name [facility] [place] [facility] [place] Address [address] [place] [address] Care Team Providers Care Top Inventory Control Executive Name Role Phone JOSE MANUEL PITT Primary [...] Burgess's Name Patient's Relationship to Policy Burgess [facility] HEALTH PLAN MEDICARE SUPPLEMEN BETY MEDIC ARE SUPPL EMENT A Feb 18, 2022 SUPP1 [id number] [phone] GINA DE LA ROSA PATIENT [facility] MED PREFER/SEN IOR CARE MEDICARE SUPPLEMEN BETY MEDIC ARE SUPPL EMENT A Feb 18, 2021 SUPP1 [id number] GINA DE LA ROSA PATIENT Selected Encounter This section includes the [place] on [place] at [place] for the Encounter. Date/Time Encounter Type Encounter Description Reason Provider Source Sep 25, 2023 09:00 AM GROUP PSYCHOTHERAPY [facility]-GROUP ICD-10-CM F43.12 Post-traumati c stress disorder, chronic MARIALUISA SALCEDO Encounter Template Text not used by [place] Assessments - Encounter Diagnoses This section includes the primary and secondary diagnoses documented for the Encounter. Date/Time Primary/Secondary Diagnosis Diagnosis Name Provider Source Sep 25, 2023 10:33 AM PRIMARY Post-traumatic stress disorder, chronic MARIALUISA SALCEDO [place] [facility] [facility] Plan of Treatment: Future Appointments (+ 6 months) and Future Tests (+/- 45 days) The Plan of Treatment section includes future care activities for the patient from all [place] treatmentfacilities. This section includes future appointments and future orders which are active, pending or scheduled. Future Appointments This section includes appointments that were scheduled to occur 6 months from the date of the Encounter, up to a maximum of 20 appointments. The data comes from all [place] treatment facilities. Appointment Date/Time Appointment Type Appointme nt Facility Name Sep 30, 2023 07:00 AM AMBULATORY - PS[facility]CHIATRY [facility] [place] [facility] Oct 02, 2023 09:00 AM AMBULATORY - PS[facility]CHIATRY [facility] [place] [facility] Oct 09, 2023 09:00 AM AMBULATORY - PS[facility]CHIATRY [facility] [place] [facility] Oct 16, 2023 09:00 AM AMBULATORY - PSYCHIATRY [facility] [place] [facility] Oct 23, 2023 09:00 AM AMBULATORY - PSYCHIATRY [facility] [place] [facility] Oct 28, 2023 07:00 AM AMBULATORY - PS[facility]CHIATRY [facility] [place] [facility] Oct 28, 2023 08:00 AM AMBULATORY - NEUROLOGY [facility] [place] [facility] Oct 28, 2023 09:30 AM AMBULATORY - PSYCHIATRY [facility] [place] [facility] Oct 30, 2023 09:00 AM AMBULATORY - PSYCHIATRY [facility] [place] [facility] Nov 06, 2023 09:00 AM AMBULATORY - PSYCHIATRY [facility] [place] [facility] Nov 13, 2023 09:00 AM AMBULATORY - PSYCHIATRY [facility] [place] [facility] Nov 19, 2023 07:00 AM AMBULATORY - PSYCHIATRY [facility] [place] [facility] Nov 20, 2023 09:00 AM AMBULATORY - PSYCHIATRY [facility] [place] [facility] Nov 27, 2023 09:00 AM AMBULATORY - PSYCHIATRY [facility] [place] [facility] Dec 04, 2023 09:00 AM AMBULATORY - PSYCHIATRY [place] [facility] [place] [facility] Dec 11, 2023 09:00 AM AMBULATORY [place]ATRY [place] [facility] [place] [facility] Dec 16, 2023 09:30 AM AMBULATORY - [place]IATRY [place] [facility] [place] [facility] Dec 18, 2023 09:00 AM AMBULATORY - [place]CHIATRY [place] [facility] [place] [facility] Dec 19, 2023 07:30 AM AMBULATORY - MEDICINE [place] [facility] [facility] Dec 23, 2023 07:00 AM AMBULATORY - [facility] [place] [facility] Active, Pending, and Scheduled Orders This section includes a listing of several types of active, pending, and scheduled orders, including clinic medications orders, diagnostic test orders, procedure orders and consult orders; where the start date of the order is 45 days before the date of the Encounter or 45 days after the date of theEncounter. The data comes from all [place] treatment facilities. Test Date/Time Test Type Test Details Facility Name Oct 25, 2023 02:36 PM Consult Order COMMUNITY CARE-UROLOGY [place] [facility] Guide's [facility] [place] [facility] Oct 28, 2023 01:47 PM Consult Order COMMUNITY CARE-NEUROLOGY [place] Guide's Choice [facility] Social History: Smoking Status (Most current) and Tobacco Use (All prior to encounter date) This section includes the most current, and the historical, smoking and tobacco- related health factors from the [place] facility where the Encounter took place. Current Smoking Status This section includes the most current smoking, or tobacco-related health factor, from the [place] facility where the Encounter took place. Date/Time Current Smoking Status Comment Nurys ity Apr 15, 2023 07:00 AM VA-TOBACCO FOR[facility]ER [facility] Tobacco Use History This section includes a history of the smoking, or tobacco-related health factors, that were collected on or before the date of the Encounter. The data comes from the [place] facility where the Encounter took place. Date/Time Smoking Status/Tobacco Use Comment F acshen Apr 15, 2023 07:00 AM VA-TOBACCO QUIT 15 YRS OR MORE [facility] [place] [facility] Apr 24, 2022 07:00 AM VA-TOBACCO FOR[facility] US[facility] [place] [facility] Apr 24, 2022 07:00 AM VA-TOBACCO QUIT 15 YRS OR MORE [place] [facility] [place] [facility] Apr 27, 2021 03:00 PM VA-TOBACCO FORMER USER [facility] [place] [facility] Apr 27, 2021 03:00 PM VA-TOBACCO QUIT 15 YRS OR MORE [facility] [place] [facility] Mar 17, 2020 03:00 PM VA-TOBACCO FORMER USER [facility] [place] [facility] Mar 17, 2020 03:00 PM VA-TOBACCO QUIT 15 YRS OR MORE [facility] [place] [facility] Mar 31, 2019 09:04 AM VA-TOBACCO FORMER USER [facility] [place] [facility] Mar 31, 2019 09:04 AM VA-TOBACCO QUIT 15 YRS OR MORE [facility] [place] [facility] Encounter Notes: All associated encounter notes This section contains the clinical notes associated to the Encounter. Date/Time Encounter Note(s) Provider Source Sep 25, 2023 10:19 AM SOCIAL WORK GROUP COUNSELING NOTE: LOCAL TITLE: SOCIAL WORK GROUP NOTE STANDARD TITLE: SOCIAL WORK GROUP COUNSELING NOTE DATE OF NOTE: SEP 25, 2023@10:19 ENTRY DATE: SEP 25, 2023@10:19:36 AUTHOR: MARIALUISA SALCEDO EXP COSIGNER: URGENCY: STATUS: COMPLETED [employer] Group Date: 09/25/23 Time: 9 AM Number of group members: 9 Practical Nursing Teacher: Marialuisa Salcedo, [facility] Group began with a introduction [...] acceptance-based skills with difficult emotions and thoughts. [place] shared comments, observations, and questions at the conclusion of the meditation. Today's theme was on emotions and feelings. [place] engaged with window trimmer and group members appropriately, participating in the meditation and reflection time. did not endorse SI/HI. [place]'s intention was to increase motivation and gain better understanding on emotions and reactivity. DIAGNOSES: Persistent mood disorder, unspecified PTSD, chronic Cognitive Disorder (History of) Cerebral Infarction, Unspecified [place] Video Connect (VVC) Standard Documentation VVC Clinician Resources Only: E911 (Emergency Call Relay Center): [phone] National Veterans Crisis Line - 988 then press #1. [facility] Suicide Coordinator [phone], Ext. [phone]; Back-up Ext. [phone] [place] Police, [place], [place] [phone] Introduction: Visit is being conducted by [place] dermSearch Connect. identified with 2 identifiers: [X] Full Name [X] Date of [ ] VA ID Card Emergency Plan: [place] confirmed and/or provided the following information in case of emergency or technology failure. PATIENT PHONE - PHONE NUMBER [CELLULAR] - Is patient phone number correct, if not, enter below: 's phone number: TAJ DE LA ROSA [address], [place], [address] 's present location and address for appointment: his home 's emergency contact name and phone number: E-Cont.: JUVENCIO DE LA ROSA Relation Type: UNRELATED FRIEND/OTHER Relation Note: OTHERS [address] [place] [address] [facility] [place] reported that location is private and safe: Yes Informed Consent: informed of the risks and benefits of Telehealth video care. has the right to refuse video services. If refuses video visit, a [id number] visit will be scheduled. [place] verbalized consent for this video visit: Yes [place] provided consent for any other persons present for visit: Yes If yes, who and relationship to patient:group Secure visit: Visit was locked for security and privacy:Yes /nicole/ REBECA CARABALLO Surgical Instrument Maker Signed: 09/25/2023 10:34 MARIALUISA SALCEDO [facility]
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
--- OUTSIDE RECORDS SUMMARY | 2024-05-05 07:43 | XMS_ITS | Encounter Summary ---
Author Organization [facility], Address [address] [place] [address] Phone Care Team Providers Care Patch Finisher Name Role Phone Luis F Lozada DO Primary Care Provide r Encounter Details Date Type Department Care Team (Late st Contact Info) Description 08/01/2021 Documentation Only [facility] [address] [place] [address] Camilo Terrell MD [address] [place] [address] [place] [address] Social History Tobacco Use Types [...] Visit [facility] [address] [address] Camilo Terrell MD [address] [place] [address] documented as of this encounter Visit Diagnoses Not on filedocumented in this encounter Care Teams Patch Finisher Relationship Specialty Start Date End Date Luis F Lozada DO [address] [facility] [address] [place] [address] PCP - General Internal Medicine 02/03/21 documented as of this encounter
--- OUTSIDE RECORDS SUMMARY | 2024-05-05 07:43 | XMS_ITS ---
Author Name [facility] [place] [facility] [place] Organization [facility] [place] Address [address] [place] [address] Care Team Providers Care Talent Development Specialist Name Role Phone JOSE MANUEL PITT [...] Burgess's Name Patient's Relationship to Policy Burgess [facility] HEALTH PLAN MEDICARE SUPPLEMEN BETY MEDIC ARE SUPPL EMENT A Feb 18, 2022 SUPP1 [id number] GINA DE LA ROSA PATIENT [facility] MED PREFER/SEN IOR CARE MEDICARE SUPPLEMEN BETY MEDIC ARE SUPPL EMENT A Feb 18, 2021 SUPP1 [id number] GINA DE LA ROSA PATIENT Selected Encounter This section includes the information on record at [place] for the Encounter. Date/Time Encounter Type Encounter Description Reason Provider Source Sep 02, 2023 07:00 AM PSYTX W PT 45 MINUTES [facility] - IND ICD-10-CM F34.9 Persistent mood [affective] disorder, unspecified MOISES PADILLA Encounter Template Text not used by [place] Assessments - Encounter Diagnoses This section includes the primary and secondary diagnoses documented for the Encounter. Date/Time Primary/Secondary Diagnosis Diagnosis Name Provider Source Sep 02, 2023 07:58 AM PRIMARY Persistent mood [affective] disorder, unspecified MOISES PADILLA [place] [facility] [place] [facility] Sep 02, 2023 07:58 AM SECONDARY Cerebral infarction, unspecified MOISES PADILLA [place] [facility] [facility] Sep 02, 2023 07:58 AM SECONDARY Post-traumatic stress disorder, chronic MOISES PADILLA [place] [facility] [facility] Sep 02, 2023 07:58 AM SECONDARY Unsp symptoms and signs w cognitive functions and awareness MOISES PADILLA [place] [facility] [facility] Plan of Treatment: Future Appointments (+ 6 months) and Future Tests (+/- 45 days) The Plan of Treatment section includes future care activities for the patient from all [place] treatmentfacilities. This section includes future appointments and future orders which are active, pending or scheduled. Future Appointments This section includes appointments that were scheduled to occur 6 months from the date of the Encounter, up to a maximum of 20 appointments. The data comes from all [place] treatment facilities. Appointment Date/Time Appointment Type Appointme nt Facility Name Sep 09, 2023 05:00 PM AMBULATORY - PS[place]CHIATRY [place] [facility] [place] [facility] Sep 11, 2023 09:00 AM AMBULATORY - PSYCHIATRY [facility] [place] [facility] Sep 19, 2023 01:30 PM AMBULATORY - PSYCHIATRY [facility] [place] [facility] Sep 25, 2023 09:00 AM AMBULATORY - PSYCHIATRY [facility] [place] [facility] Sep 30, 2023 07:00 AM AMBULATORY - PSYCHIATRY [facility] [place] [facility] Oct 02, 2023 09:00 AM AMBULATORY - PSYCHIATRY [facility] [place] [facility] Oct 09, 2023 09:00 AM AMBULATORY - PSYCHIATRY [facility] [place] [facility] Oct 16, 2023 09:00 AM AMBULATORY - PSYCHIATRY [facility] [place] [facility] Oct 23, 2023 09:00 AM AMBULATORY - PSYCHIATRY [facility] [place] [facility] Oct 28, 2023 07:00 AM AMBULATORY - PSYCHIATRY [facility] [place] [facility] Oct 28, 2023 08:00 AM AMBULATORY - NEUROLOGY [facility] [place] [facility] Oct 28, 2023 09:30 AM AMBULATORY - PSYCHIATRY [facility] [place] [facility] Oct 30, 2023 09:00 AM AMBULATORY - PSYCHIATRY [facility] [place] [facility] Nov 06, 2023 09:00 AM AMBULATORY - PSYCHIATRY [facility] [place] [facility] Nov 13, 2023 09:00 AM AMBULATORY - PSYCHIATRY [facility] [place] [facility] Nov 19, 2023 07:00 AM AMBULATORY - PSYCHIATRY [facility] [place] [facility] Nov 20, 2023 09:00 AM AMBULATORY - PSYCHIATRY [facility] [place] [facility] Nov 27, 2023 09:00 AM AMBULATORY - PSYCHIATRY [facility] [place] [facility] Dec 04, 2023 09:00 AM AMBULATORY - PSYCHIATRY [facility] [place] [facility] Dec 11, 2023 09:00 AM AMBULATORY - PS[place]CHIATRY [place] [facility] [place] [facility] Social History: Smoking Status (Most current) and [...] 15, 2023 07:00 AM [facility]AC[facility] Tobacco Use History This section includes a history of the smoking, or tobacco-related health factors, that were collected on or before the date of the Encounter. The data comes from the [place] facility where the Encounter took place. Date/Time Smoking Status/Tobacco Use Comment F acility Apr 15, 2023 07:00 AM VA-TOBACCO QUIT 15 YRS OR MORE [place] [facility] [place] [facility] Apr 24, 2022 07:00 AM VA-TOBACCO FORMER USER [place] [facility] [place] [facility] Apr 24, 2022 07:00 AM VA-TOBACCO QUIT 15 YRS OR MORE [place] [facility] [place] [facility] Apr 27, 2021 03:00 PM VA-TOBACCO FORMER USER [facility] [place] [facility] Apr 27, 2021 03:00 PM VA-TOBACCO QUIT 15 YRS OR MORE [facility] [place] [facility] Mar 17, 2020 03:00 PM VA-TOBACCO FORMER USER [facility] [place] [facility] Mar 17, 2020 03:00 PM VA-TOBACCO QUIT 15 YRS OR MORE [facility] [place] [facility] Mar 31, 2019 09:04 AM VA-TOBACCO FORMER USER [facility] [place] [facility] Mar 31, 2019 09:04 AM VA-TOBACCO QUIT 15 YRS OR MORE [place] [facility] [place] [facility] Encounter Notes: All associated encounter notes This section contains the clinical notes associated to the Encounter. Date/Time Encounter Note(s) Provider Source Sep 02, 2023 06:41 AM PSYCHOLOGY NOTE: LOCAL TITLE: PSYCHOLOGY NOTE STANDARD TITLE: PSYCHOLOGY NOTE DATE OF NOTE: SEP 02, 2023@06:41 ENTRY DATE: SEP 02, 2023@06:41:59 AUTHOR: MOISES PADILLA COSIGNER: URGENCY: STATUS: COMPLETED PSYCHOLOGY NOTE Has ADDENDA was identified by Visual recognition and patient name. VISIT DURATION 40 minutes DIAGNOSES: Persistent mood disorder, unspecified PTSD, chronic Cognitive Disorder (History of) Cerebral Infarction, Unspecified PRESENTING PROBLEMS: Aury presented on time and began by stating that I just can't get my mind to calm down. Aury was tearful throughout today's session as we processed his difficulties over the past 2 weeks. SESSION FOCUS: Today's session was focused on his recent reports of what appears to be a manic episode. He reported that over about the past 2 weeks he has been experiencing racing thoughts, distractibility, starting many projects at once but being unable to finish them, restlessness, and high energy. Prior to this, he reported feeling the opposite , which was lethargic, low motivation, and a sense that i just don't care. Aury was tearful throughout today's session, reporting that he has been feeling overwhelmed and unable to accomplish the long list of house projects that he has. We explored what has changed recently for him and how this came about. Aury reportedly has been feeling increased (self-imposed) pressure to complete many house repairs and projects, with a sense of urgency. This provider explored the reason for the sampson, and ultimately revealed Veterans sense of impending mortality. I've got so much to do and not enough time to do it he explained. Aury didn't understand why he feels like he doesn't have much time left to live, and vehemently denied any suicidal ideation, plan or intent. He did however recall that his parents at age 66 and 69, and he is about to turn 68. Additionally, Aury recognized that his sampson to fix everything in the house revolves around a worry that his will be left with everything when he is gone and he needs to get it squared away before then. We processed this more and Aury was reminded of how this extra stress can work against his health. We ended with a discussion about using mindfulness and relaxation strategies to take place of projects. He was encouraged to take a break on the house for a while and remind self of what we discussed. Additionally a consult was placed for Irest, which he benefitted greatly from in the past, and he requested that his prescriber be alerted to today's session. reported that it was very helpful to let it out today. ASSESSMENT: BRIEF ASSESSMENT OF MENTAL STATUS: 1. [...] current homicidal ideation RTCs: F2F ssns monthly. Adding Dr. Stanford to today's note regarding [place]'s recent mood disturbance. /nicole/ Moises Padilla PsyD Staff Psychologist Signed: 09/02/2023 07:58 Receipt Acknowledged By: 09/02/2023 11:00 /nicole/ SALLY [place] PSYCHIATRIST 09/02/2023 ADDENDUM STATUS: COMPLETED Called vet to check in, confirms ongoing significant insomnia, high anxiety. He agreed to increase brexpiprazole to 2mg daily and to f/u with me earlier, SatSeptember 08 at 5pm by [facility]. RTC entered. Vet is aware he can call with questions or concerns. /nicole/ SALLY [place] PSYCHIATRIST Signed: 09/02/2023 14:01 MOISES PADILLA [facility]
--- OUTSIDE RECORDS SUMMARY | 2024-05-05 07:43 | XMS_ITS ---
Author Name [facility] [place] Organization [place] Address [address] [place] [address] Care Team Providers Care Supervisor Volunteer Services Name Role Phone JOSE MANUEL PITT Primary [...] SUPPL EMENT A Feb 18, 2022 SUPP1 [id number] [phone] GINA DE LA ROSA PATIENT [facility] MED PREFER/SEN IOR CARE MEDICARE SUPPLEMEN BETY MEDIC ARE SUPPL EMENT A Feb 18, 2021 SUPP1 [id number] GINA DE LA ROSA PATIENT Selected Encounter This section includes the information on record at [place] for the Encounter. Date/Time Encounter Type Encounter Description Reason Provider Source Oct 02, 2023 09:00 AM GROUP PS[facility]CHOTHERAPY [facility] ICD-10-CM F43.12 Post-traumati c stress disorder, chronic MARIALUISA SALCEDO Encounter Template Text not used by [place] Assessments - Encounter Diagnoses This section includes the primary and secondary diagnoses documented for the Encounter. Date/Time Primary/Secondary Diagnosis Diagnosis Name Provider Source Oct 02, 2023 10:32 AM PRIMARY Post-traumatic stress disorder, chronic MARIALUISA SALCEDO [place] [facility] [place] [facility] Plan of Treatment: Future Appointments (+ 6 months) and Future Tests (+/- 45 days) The Plan of Treatment section includes future care activities for the patient from all [place] treatmentfacilities. This section includes future appointments and future orders which are active, pending or scheduled. Future Appointments This section includes appointments that were scheduled to occur 6 months from the date of the Encounter, up to a maximum of 20 appointments. The data comes from all [place] treatment facilities. Appointment Date/Time Appointment Type Appointme nt Facility Name Oct 09, 2023 09:00 AM AMBULATORY - PSYCHIATRY [place] [facility] [place] [facility] Oct 16, 2023 09:00 AM AMBULATORY - PSYCHIATRY [facility] [place] [facility] Oct 23, 2023 09:00 AM AMBULATORY - PSYCHIATRY [facility] [place] [facility] Oct 28, 2023 07:00 AM AMBULATORY - PSYCHIATRY [facility] [place] [facility] Oct 28, 2023 08:00 AM AMBULATORY - NEUROLOGY [facility] [place] [facility] Oct 28, 2023 09:30 AM AMBULATORY - PSYCHIATRY [facility] [place] [facility] Oct 30, 2023 09:00 AM AMBULATORY - PSYCHIATRY [facility] [place] [facility] Nov 06, 2023 09:00 AM AMBULATORY - PSYCHIATRY [facility] [place] [facility] Nov 13, 2023 09:00 AM AMBULATORY - PSYCHIATRY [facility] [place] [facility] Nov 19, 2023 07:00 AM AMBULATORY - PSYCHIATRY [facility] [place] [facility] Nov 20, 2023 09:00 AM AMBULATORY - PSYCHIATRY [facility] [place] [facility] Nov 27, 2023 09:00 AM AMBULATORY - PSYCHIATRY [facility] [place] [facility] Dec 04, 2023 09:00 AM AMBULATORY - PSYCHIATRY [facility] [place] [facility] Dec 11, 2023 09:00 AM AMBULATORY - PSYCHIATRY [facility] [place] [facility] Dec 16, 2023 09:30 AM AMBULATORY - PSYCHIATRY [facility] [place] [facility] Dec 18, 2023 09:00 AM AMBULATORY - PSYCHIATRY [place] [facility] [place] [facility] Dec 19, 2023 07:30 AM AMBULATORY - MEDICINE VA C [facility] [place] [facility] Dec 23, 2023 07:00 AM AMBULATORY - PSYCHIATRY [place] [facility] [place] [facility] Dec 25, 2023 09:00 AM AMBULATORY - PSYCHIATRY [place] [facility] [place] [facility] Jan 01, 2024 09:00 AM AMBULATORY - PSYCHIATRY [place] [facility] [place] [facility] Active, Pending, and Scheduled Orders This section includes a listing of several types of active, pending, and scheduled orders, including clinic medications orders, diagnostic test orders, procedure orders and consult orders; where the start date of the order is 45 days before the date of the Encounter or 45 days after the date of theEncounter. The data comes from all [place] treatment facilities. Test Date/Time Test Type Test Details Facility Name Oct 25, 2023 02:36 PM Consult Order COMMUNITY CARE-UROLOGY Cons Debt Collector's Choice [place] [facility] [place] [facility] Oct 28, 2023 01:47 PM Consult Order [facility] [place] [facility] Social History: Smoking Status (Most [...] 15, 2023 07:00 AM VA-[facility]CO [facility] Tobacco Use History This section includes a history of the smoking, or tobacco-related health factors, that were collected on or before the date of the Encounter. The data comes from the [place] facility where the Encounter took place. Date/Time Smoking Status/Tobacco Use Comment F acility Apr 15, 2023 07:00 AM VA-TOBACCO QUIT 15 YRS OR MORE [place] [facility] [place] [facility] Apr 24, 2022 07:00 AM VA-TOBACCO FORMER USER [place] [facility] [place] [facility] Apr 24, 2022 07:00 AM VA-TOBACCO QUIT 15 YRS OR MORE [place] [facility] [place] [facility] Apr 27, 2021 03:00 PM VA-TOBACCO FORMER USER [facility] [place] [facility] Apr 27, 2021 03:00 PM VA-TOBACCO QUIT 15 YRS OR MORE [facility] [place] [facility] Mar 17, 2020 03:00 PM VA-TOBACCO FORMER USER [facility] [place] [facility] Mar 17, 2020 03:00 PM VA-TOBACCO QUIT 15 YRS OR MORE [facility] [place] [facility] Mar 31, 2019 09:04 AM VA-TOBACCO FORMER USER [facility] [place] [facility] Mar 31, 2019 09:04 AM VA-TOBACCO QUIT 15 YRS OR MORE [facility] [place] [facility] Encounter Notes: All associated encounter notes This section contains the clinical notes associated to the Encounter. Date/Time Encounter Note(s) Provider Source Oct 02, 2023 10:20 AM SOCIAL WORK GROUP COUNSELING NOTE: LOCAL TITLE: SOCIAL WORK GROUP NOTE STANDARD TITLE: SOCIAL WORK GROUP COUNSELING NOTE DATE OF NOTE: OCT 02, 2023@10:20 ENTRY DATE: OCT 02, 2023@10:20:19 AUTHOR: MARIALUISA SALCEDO EXP COSIGNER: URGENCY: STATUS: COMPLETED iRest Group Date: 10/02/23 Time: 9 AM Number of group members: 10 Director Physical Therapy: Marialuisa Salcedo, [facility] Group began [...] acceptance-based skills with difficult emotions and thoughts. [place] shared comments, observations, and questions at the conclusion of the meditation. Today's theme was on beliefs and their opposites. [place] engaged with dial screw assembler and group members appropriately, participating in the meditation and reflection time. [place] did not endorse SI/HI. [place]'s intention was improve mood and also find sense of peace. DIAGNOSES: Persistent mood disorder, unspecified PTSD, chronic Cognitive Disorder (History of) Cerebral Infarction, Unspecified [place] Video Connect (VVC) Standard Documentation VVC Clinician Resources Only: E911 (Emergency Call Relay Center): [phone] [employer] Crisis Line - 988 then press #1. [facility] Suicide Coordinator [phone], Ext. [phone]; Back-up Ext. [phone] [place] Police, BETH, Kendrick [phone] Introduction: Visit is being conducted by [place] [employer] Connect. identified with 2 identifiers: [X] Full Name [X] Date of [ ] VA ID Card Emergency Plan: confirmed and/or provided the following information in case of emergency or technology failure. PATIENT PHONE - PHONE NUMBER [CELLULAR] - Is patient phone number correct, if not, enter below: 's phone number: TAJ DE LA ROSA [address], [place], [address] 's present location and address for appointment: his home 's emergency contact name and phone number: E-Cont.: JUVENCIO DE LA ROSA Relation Type: UNRELATED FRIEND/OTHER Relation Note: [place]TH[address] [place] [address] [facility] [place] reported that location is private and safe: Yes Informed Consent: informed of the risks and benefits of Telehealth video care. [place] has the right to refuse video services. If refuses video visit, a [id number] visit will be scheduled. [place] verbalized consent for this video visit: Yes [place] provided consent for any other persons present for visit: Yes If yes, who and relationship to patient:group Secure visit: Visit was locked for security and privacy:Yes /nicole/ REBECA CARABALLO Elevators Inspector Signed: 10/02/2023 10:33 MARIALUISA SALCEDO [place] [facility]
--- OUTSIDE RECORDS SUMMARY | 2024-05-05 07:43 | XMS_ITS | Encounter Summary ---
Author Name [facility] [place] Organization Department of [place] Address [address] [place] [address] Care Team Providers Care Signal Manager Name Role Phone JOSE MANUEL PITT [...] SUPPL EMENT A Feb 18, 2022 SUPP1 [id number] GINA DE LA ROSA PATIENT [facility] MED PREFER/SEN IOR CARE MEDICARE SUPPLEMEN BETY MEDIC ARE SUPPL EMENT A Feb 18, 2021 SUPP1 [id number] GINA DE LA ROSA PATIENT Selected Encounter This section includes the information on record at [place] for the Encounter. Date/Time Encounter Type Encounter Description Reason Provider Source Dec 04, 2023 09:00 AM GROUP PSYCHOTHERAPY [facility] ICD-10-CM F43.12 Post-traumati c stress disorder, chronic MARIALUISA SALCEDO Encounter Template Text not used by [place] Assessments - Encounter Diagnoses This section includes the primary and secondary diagnoses documented for the Encounter. Date/Time Primary/Secondary Diagnosis Diagnosis Name Provider Source Dec 19, 2023 02:51 PM PRIMARY Post-traumatic stress disorder, chronic MARIALUISA SALCEDO [place] [facility] [place] [facility] Plan of Treatment: Future Appointments (+ [...] Appointment Type Appointme nt Facility Name Dec 11, 2023 09:00 AM AMBULATORY - PSYCHIATRY [facility] [place] [facility] Dec 16, 2023 09:30 AM AMBULATORY - PSYCHIATRY [facility] [place] [facility] Dec 18, 2023 09:00 AM AMBULATORY - PSYCHIATRY [facility] [place] [facility] Dec 19, 2023 07:30 AM AMBULATORY - MEDICINE [facility] C [facility] [facility] Dec 23, 2023 07:00 AM AMBULATORY - PSYCHIATRY [facility] [place] [facility] Dec 25, 2023 09:00 AM AMBULATORY - PSYCHIATRY [facility] [facility] Jan 01, 2024 09:00 AM AMBULATORY - PSYCHIATRY [facility] [place] [facility] Jan 08, 2024 09:00 AM AMBULATORY - PSYCHIATRY [facility] [place] [facility] Jan 09, 2024 09:30 AM AMBULATORY - MEDICINE [facility] Jan 14, 2024 07:00 AM AMBULATORY - PSYCHIATRY [facility] [place] [facility] Jan 20, 2024 08:30 AM AMBULATORY - NEUROLOGY [facility] [place] [facility] Jan 22, 2024 09:00 AM AMBULATORY - PSYCHIATRY [facility] [place] [facility] Jan 27, 2024 01:30 PM AMBULATORY - PSYCHIATRY [facility] [place] [facility] Jan 29, 2024 09:00 AM AMBULATORY - PSYCHIATRY [facility] [place] [facility] Feb 05, 2024 09:00 AM AMBULATORY - PSYCHIATRY [facility] [place] [facility] Feb 10, 2024 07:00 AM [facility] [place] [facility] Feb 24, 2024 07:00 AM [facility] [place] [facility] Mar 04, 2024 09:00 AM [facility] [place] [facility] Mar 11, 2024 09:00 AM [facility] Mar 18, 2024 09:00 AM [facility] Active, Pending, and Scheduled Orders This section includes a listing of several types of active, pending, and scheduled orders, including clinic medications orders, diagnostic test orders, procedure orders and consult orders; where the start date of the order is 45 days before the date of the Encounter or 45 days after the date of theEncounter. The data comes from all [place] treatment facilities. Test Date/Time Test Type Test Details Facility Name Oct 25, 2023 02:36 PM Consult Order COMMUNITY CARE-UROLOGY Cons Rn Critical [facility]'s [facility] Oct 28, 2023 01:47 PM Consult Order COMM[facility]ITY [facility]-NEUROLOGY Cons Rn Critical Care's Choice [facility] Lab Results: +/- 30 days of the encounter This section includes the Chemistry and Hematology Lab Results on record with [place] for the patient. Radiology Reports and Pathology Reports are provided separately, in subsequent sections. Lab Results This section contains the Chemistry/Hematology Results that were resulted 30 days before or 30 daysafter the date of the Encounter. Date/Time Source Result Type Result - Unit Interpretation Reference Range Comment Dec 19, 2023 07:55 AM [facility] FOLATE (WROX) Specimen Type: SERUM No comment entered. Ordering Provider: NAV PIERRE Report Released Date/Time: Oct 28, 2023 09:59 AM Reporting Lab: [facility] [address] [facility] [address] Performing Lab: [facility] [address] [facility] [address] FOLATE (WROX) 9.07 ng/mL >5.2 Dec 19, 2023 07:55 AM [facility] TSH Specimen Type: SERUM No comment entered. Ordering Provider: NAV PIERRE Report Released Date/Time: Oct 28, 2023 09:59 AM Reporting Lab: [facility] [address] [facility] [address] Performing [facility]: [facility] [address] [facility] [address] TSH 1.09 u[IU]/mL 0.35-5.00 Dec 19, 2023 07:55 AM [facility] VITAMIN D (25-OH) Specimen Type: SERUM No comment entered. Ordering Provider: NAV PIERRE Report Released Date/Time: Oct 28, 2023 09:59 AM Reporting Lab: [facility] [address] [address] Performing Lab: [address] [address] VITAMIN D (25-OH) 38 ng/mL 20-50 Dec 19, 2023 07:55 AM [facility] VITAMIN B12 Specimen Type: SERUM No comment entered. Ordering Provider: NAV PIERRE Report Released Date/Time: Oct 28, 2023 09:59 AM Reporting Lab: [facility] [address] [facility] [address] Performing Lab: [address] [address] VITAMIN B12 297 pg/mL 200-900 Dec 19, 2023 07:55 AM [facility] LIPID PANEL FASTING Specimen Type: SERUM No comment entered. Ordering Provider: NAV PIERRE Report Released Date/Time: Dec 16, 2023 09:50 AM Reporting Lab: [facility] [address] [address] Performing Lab: [facility] [address] CHOLESTEROL 113 mg/dL TRIGLYCERIDE 85 mg/dL 0-150 LDL calculated 50 mg/dL 0-129 CHOL/HDL 2.5 HDL CHOLESTEROL 46 mg/dL 40-60 Dec 19, 2023 07:55 AM [facility] HEMOGLOBIN A1C PANEL Specimen Type: BLOOD Comment: [...] Dec 16, 2023 09:50 AM Reporting Lab: [address] [address] Performing Lab: [address] [address] HEMOGLOBIN A1C 5.5 4.0-5.6 Dec 19, 2023 07:55 AM [facility] BASIC METABOLIC PANEL (fasting) Specimen Type: SERUM No comment entered. Ordering Provider: NAV PIERRE Report Released Date/Time: Dec 16, 2023 09:50 AM Reporting Lab: [address] [address] Performing Lab: [address] [address] UREA NITROGEN 18 mg/dL 7-25 GLUCOSE 117 [...] AM VA-TOBACCO QUIT 15 YRS OR MORE [place] [facility] [facility] Tobacco Use History This section includes a history of the smoking, or tobacco-related health factors, that were collected on or before the date of the Encounter. The data comes from the [place] facility where the Encounter took place. Date/Time Smoking Status/Tobacco Use Comment F acility Apr 15, 2023 07:00 AM VA-TOBACCO QUIT 15 YRS OR MORE [place] [facility]TRL [place] [facility] Apr 24, 2022 07:00 AM VA-TOBACCO FORMER USER [place] [facility]L [facility] [facility] Apr 24, 2022 07:00 AM VA-TOBACCO QUIT 15 YRS OR MORE [place] [facility] [facility] Apr 27, 2021 03:00 PM VA-TOBACCO FORMER USER [place] [facility] [facility] Apr 27, 2021 03:00 PM VA-TOBACCO QUIT 15 YRS OR MORE [place] [facility]TRL [facility] [facility] Mar 17, 2020 03:00 PM VA-TOBACCO FORMER USER [place] [facility] [facility] Mar 17, 2020 03:00 PM VA-TOBACCO QUIT 15 YRS OR MORE [place] [facility]TRL [facility] [facility] Mar 31, 2019 09:04 AM VA-TOBACCO FORMER USER [facility] [facility] Mar 31, 2019 09:04 AM VA-TOBACCO QUIT 15 YRS OR MORE [place] [facility] [place] [facility] Encounter Notes: All associated encounter notes This section contains the clinical notes associated to the Encounter. Date/Time Encounter Note(s) Provider Source Dec 04, 2023 10:09 AM SOCIAL WORK GROUP COUNSELING NOTE: LOCAL TITLE: SOCIAL WORK GROUP NOTE STANDARD TITLE: SOCIAL WORK GROUP COUNSELING NOTE DATE OF NOTE: DEC 04, 2023@10:09 ENTRY DATE: DEC 04, 2023@10:09:18 AUTHOR: MARIALUISA SALCEDO EXP COSIGNER: URGENCY: STATUS: COMPLETED iRest Group Date: 12/04/23 Time: 9 AM Number of group members: 10 Senior Government Program Analyst: Marialuisa Salcedo, [facility] Group began with a introduction that [...] and thoughts. Today's theme was on milind. [place] engaged with physiotherapy aide and group members appropriately, participating in the meditation and reflection time. did not endorse SI/HI. 's intention was to experience milind admist all circumstances. DIAGNOSES: Persistent mood disorder, unspecified PTSD, chronic Cognitive Disorder (History of) Cerebral Infarction, Unspecified [place] [employer] Connect (VVC) Standard Documentation VV Clinician Resources Only: E911 (Emergency Call Relay Center): [phone] [employer] Crisis Line - 988 then press #1. [facility] Suicide Coordinator [phone], Ext. [phone]; Back-up Ext. [phone] [place] Police, Sangeeta CAMPOS [phone] Introduction: Visit is being conducted by [place] [employer]. identified with 2 identifiers: [X] Full Name [X] Date of [ ] VA ID Card Emergency Plan: confirmed and/or provided the following information in case of emergency or technology failure. PATIENT PHONE - PHONE NUMBER [CELLULAR] - Is patient phone number correct, if not, enter below: Dunn's phone number: TAJ DE LA ROSA [address], [place], [address] 's present location and address for appointment: his home Dunn's emergency contact name and phone number: E-Cont.: ESTRELLAJUVENCIO Relation Type: UNRELATED FRIEND/OTHER Relation Note: [address] [place] [address] [facility] reported that location is private and safe: Yes Informed Consent: Dunn informed of the risks and benefits of Telehealth video care. [place] has the right to refuse video services. If refuses video visit, a [id number] visit will be scheduled. [place] verbalized consent for this video visit: Yes Dunn provided consent for any other persons present for visit: Yes If yes, who and relationship to patient:group Secure visit: Visit was locked for security and privacy:Yes /nicole/ REBECA CARABALLO Outreach Coordinator Signed: 12/04/2023 10:22 MARIALUISA SALCEDO [facility]
--- OUTSIDE RECORDS SUMMARY | 2024-05-05 07:43 | XMS_ITS | Encounter Summary ---
Author Name [facility] [place] [facility] [place] Address [address] [place] [address] Care Team Providers Care Purchasing Buyer Name Role Phone JOSE MANUEL PITT Primary [...] SUPPL EMENT A Feb 18, 2022 SUPP1 [id number] GINA DE LA ROSA PATIENT [facility] MED PREFER/SEN IOR CARE MEDICARE SUPPLEMEN BETY MEDIC ARE SUPPL EMENT A Feb 18, 2021 SUPP1 [id number] GINA DE LA ROSA PATIENT Selected Encounter This section includes the information on record at [place] for the Encounter. Date/Time Encounter Type Encounter Description Reason Provider Source May 04, 2024 07:00 AM PSYTX W PT 45 MINUTES [facility] - IND ICD-10-CM F43.12 Post-traumatic stress disorder, chronic MOISES PADILLA Encounter Template Text not used by [place] Assessments - Encounter Diagnoses This section includes the primary and secondary diagnoses documented for the Encounter. Date/Time Primary/Secondary Diagnosis Diagnosis Name Provider Source May 04, 2024 07:56 AM PRIMARY Post-traumatic stress disorder, chronic MOISES PADILLA [facility] [place] [facility] May 04, 2024 07:56 AM SECONDARY Persistent mood [affective] disorder, unspecified MOISES PADILLA [facility] [place] [facility] May 04, 2024 07:56 AM SECONDARY Unsp symptoms and signs w cognitive functions and awareness MOISES PADILLA [facility] [place] [facility] Plan of Treatment: Future Appointments (+ 6 months) and Future Tests (+/- 45 days) The Plan of Treatment section includes future care activities for the patient from all [place] [facility]. This section includes future appointments and future orders which are active, pending or scheduled. Future Appointments This section includes appointments that were scheduled to occur 6 months from the date of the Encounter, up to a maximum of 20 appointments. The data comes from all [place] treatment facilities. Appointment Date/Time Appointment Type Appointme nt Facility Name May 06, 2024 09:00 AM AMBULATORY - PSYCHIATRY [facility] [place] [facility] May 13, 2024 09:00 AM AMBULATORY - PSYCHIATRY [facility] [place] [facility] May 14, 2024 09:30 AM AMBULATORY - MEDICINE [facility] May 20, 2024 09:00 AM AMBULATORY - PSYCHIATRY [facility] [place] [facility] May 21, 2024 02:00 PM AMBULATORY - MEDICINE [place] [facility] [place] [facility] May 25, 2024 07:00 AM AMBULATORY - PSYCHIATRY [facility] [place] [facility] May 27, 2024 09:00 AM AMBULATORY - PSYCHIATRY [facility] [place] [facility] Jun 01, 2024 01:00 PM AMBULATORY - PSYCHIATRY [facility] [place] [facility] Jun 03, 2024 09:00 AM AMBULATORY - PSYCHIATRY [facility] [place] [facility] Jun 09, 2024 07:00 AM AMBULATORY - PSYCHIATRY [facility] [place] [facility] Jun 10, 2024 09:00 AM AMBULATORY - PSYCHIATRY [facility] [place] [facility] June 22, 2024 07:00 AM AMBULATORY - PSYCHIATRY [facility] [place] [facility] July 06, 2024 07:00 AM AMBULATORY - PSYCHIATRY [facility] [place] [facility] Jul 20, 2024 09:00 AM AMBULATORY - NEUROLOGY [facility] [place] [facility] Aug 03, 2024 08:30 AM [facility] Active, Pending, and Scheduled Orders This section includes a listing of several types of active, pending, and scheduled orders, including clinic medications orders, diagnostic test orders, procedure orders and consult orders; where the start date of the order is 45 days before the date of the Encounter or 45 days after the date of theEncounter. The data comes from all [place] treatment facilities. Test Date/Time Test Type Test Details Facility Name Apr 27, 2024 12:00 AM Laboratory - Chemi stry Order OCCULT BLOOD FIT X1 SCREEN (MFP ONLY) ST[facility] Social History: Smoking Status (Most current) and Tobacco Use (All prior to encounter date) This section includes the most current, and the historical, smoking and tobacco- related health factors from the [place] facility where the Encounter took place. Current Smoking Status This section includes the most current smoking, or tobacco-related health factor, from the [place] facility where the Encounter took place. Date/Time Current Smoking Status Comment Facil ity Mar 30, 2024 07:00 AM VA-TOBACCO USE FOR TYRONE OTHER TYPE [facility] Tobacco Use History This section includes a history of the smoking, or tobacco-related health factors, that were collected on or before the date of the Encounter. The data comes from the [place] facility where the Encounter took place. Date/Time Smoking Status/Tobacco Use Comment F acility Mar 30, 2024 07:00 AM VA-TOBACCO USE FOR TYRONE OTHER TYPE [facility] [place] [facility] Apr 15, 2023 07:00 AM VA-TOBACCO FORMER USER [facility] [place] [facility] Apr 15, 2023 07:00 AM VA-TOBACCO QUIT 15 YRS OR MORE [facility] [place] [facility] Apr 24, 2022 07:00 AM VA-TOBACCO FORMER USER [facility] [place] [facility] Apr 24, 2022 07:00 AM VA-TOBACCO QUIT 15 YRS OR MORE [facility] [place] [facility] Apr 27, 2021 03:00 PM VA-TOBACCO FORMER USER [facility] [place] [facility] Apr 27, 2021 03:00 PM VA-TOBACCO QUIT 15 YRS OR MORE [facility] [place] [facility] Mar 17, 2020 03:00 PM VA-TOBACCO FORMER USER [facility] [place] [facility] Mar 17, 2020 03:00 PM VA-TOBACCO QUIT 15 YRS OR MORE [facility] [place] [facility] Mar 31, 2019 09:04 AM VA-TOBACCO FORMER USER [facility] [place] [facility] Mar 31, 2019 09:04 AM VA-TOBACCO QUIT 15 YRS OR MORE [facility] [place] [facility] Encounter Notes: All associated encounter notes This section contains the clinical notes associated to the Encounter. Date/Time Encounter Note(s) Provider Source May 04, 2024 06:46 AM PSYCHOLOGY NOTE: LOCAL TITLE: PSYCHOLOGY NOTE STANDARD TITLE: PSYCHOLOGY NOTE DATE OF NOTE: MAY 04, 2024@06:46 ENTRY DATE: MAY 04, 2024@06:46:58 AUTHOR: MOISES PADILLA COSIGNER: URGENCY: STATUS: COMPLETED Amistad was identified by Visual recognition and patient name. 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 We also reviewed his behavioral activation/coping skill goals. SESSION FOCUS: We're falling into the routine of cancer. Amistad described the patterns that they are starting to learn as they are reaching about the half way point of Carlyn's Chemotherapy journey. We discussed the sense of control that the predictability gives him, which was normalized. Amistad noted a tendency to tune out and become numb during Carlyn's repetitive re-telling of the story to others. I don't feel anything. I think I went inside. Psychoeducation on dissociation was done and he was shown an experiential exercise to help identify his feelings. was encouraged to continue to find ways to leave the room and involve himself in productive projects during those times instead of sitting and listening to her re-tell about the cancer diagnosis. Amistad however was happy to share that she has joined a therapy/support group so now has some outside help. This is a big relief for Broderick as it was something he had been advocating for. Lastly, was reminded to break projects into smaller chunks over time, something that he tends to struggle with. ASSESSMENT: BRIEF ASSESSMENT OF MENTAL STATUS: 1. [...] Denies current homicidal ideation RTCs: F2F ssns e/o/w (during heightened stress): 0700 Tuesdays /nicole/ Moises Padilla PsyD Staff Psychologist Signed: 05/04/2024 07:57 MOISES PADILLA [facility]
--- OUTSIDE RECORDS SUMMARY | 2024-05-05 07:43 | XMS_ITS | Encounter Summary ---
Author Name [facility] [place] [facility] [place] Organization [facility] Address [address] [place] [address] Care Team Providers Care Purchasing Clerk Name Role Phone JOSE MANUEL PITT Primary [...] Burgess's Name Patient's Relationship to Policy Burgess [facility] MEDICARE SUPPLEMEN BETY MEDIC ARE SUPPL EMENT A Feb 18, 2022 SUPP1 [id number] GINA DE LA ROSA PATIENT [facility] MED PREFER/SEN IOR CARE MEDICARE SUPPLEMEN BETY MEDIC ARE SUPPL EMENT A Feb 18, 2021 SUPP1 [id number] GIAN DE LA ROSA PATIENT Selected Encounter This section includes the information on record at [place] for the Encounter. Date/Time Encounter Type Encounter Description Reason Provider Source Mar 18, 2024 09:00 AM STRESS MGMT CLASS [facility] ICD-10-CM F34.9 Persistent mood [affective] disorder, unspecified MARIALUISA SALCEDO Encounter Template Text not used by [place] Assessments - Encounter Diagnoses This section includes the primary and secondary diagnoses documented for the Encounter. Date/Time Primary/Secondary Diagnosis Diagnosis Name Provider Source Mar 18, 2024 10:37 AM PRIMARY Persistent mood [affective] disorder, unspecified MARIALUISA SALCEDO [place] [facility] [place] [facility] Plan of Treatment: Future Appointments [...] Appointment Type Appointme nt Facility Name Mar 25, 2024 09:00 AM AMBULATORY - PSYCHIATRY [facility] [place] [facility] Mar 30, 2024 07:00 AM AMBULATORY - PSYCHIATRY [facility] [place] [facility] Mar 30, 2024 01:00 PM AMBULATORY - PSYCHIATRY [facility] [place] [facility] Apr 01, 2024 09:00 AM AMBULATORY - PSYCHIATRY [facility] [place] [facility] Apr 08, 2024 09:00 AM AMBULATORY - PSYCHIATRY [facility] [place] [facility] Apr 13, 2024 07:00 AM AMBULATORY - PSYCHIATRY [facility] [place] [facility] Apr 15, 2024 09:00 AM AMBULATORY - PSYCHIATRY [facility] [place] [facility] Apr 20, 2024 09:00 AM AMBULATORY - NEUROLOGY [facility] [place] [facility] Apr 22, 2024 09:00 AM AMBULATORY - PSYCHIATRY [facility] [place] [facility] Apr 29, 2024 09:00 AM AMBULATORY - PSYCHIATRY [facility] [place] [facility] May 04, 2024 07:00 AM AMBULATORY - PSYCHIATRY [facility] [place] [facility] May 04, 2024 10:15 AM AMBULATORY - MEDICINE [facility] [place] [facility] May 06, 2024 09:00 AM AMBULATORY - PSYCHIATRY [facility] [place] [facility] May 13, 2024 09:00 AM AMBULATORY - PSYCHIATRY [facility] [place] [facility] May 14, 2024 09:30 AM AM[facility]ULAT[facility] May 20, 2024 09:00 AM AMBULATORY - PSYCHIATRY [place] [facility] [place] [facility] May 21, 2024 02:00 PM AMBULATORY - MEDICINE LA [facility] [place] [facility] May 25, 2024 07:00 AM AMBULATORY - PSYCHIATRY [facility] [place] [facility] May 27, 2024 09:00 AM AMBULATORY - PSYCHIATRY [facility] [place] [facility] Jun 01, 2024 01:00 PM AMBULATORY - [facility] Active, Pending, and Scheduled Orders This section includes a listing of several types of active, pending, and scheduled orders, including clinic medications orders, diagnostic test orders, procedure orders and consult orders; where the start date of the order is 45 days before the date of the Encounter or 45 days after the date of theEncounter. The data comes from all [place] treatment facilities. Test Date/Time Test Type Test Details Facility Name Apr 27, 2024 12:00 AM Laboratory - Chemi stry Order OCCULT BLOOD FIT X1 SCREEN (MFP ONLY) STOOL FECES SP [facility] Social History: Smoking Status (Most [...] 15, 2023 07:00 AM [facility] Tobacco Use History This section includes a history of the smoking, or tobacco-related health factors, that were collected on or before the date of the Encounter. The data comes from the [place] facility where the Encounter took place. Date/Time Smoking Status/Tobacco Use Comment F acility Apr 15, 2023 07:00 AM VA-TOBACCO QUIT 15 YRS OR MORE [place] [facility] [place] [facility] Apr 24, 2022 07:00 AM VA-TOBACCO FORMER USER [place] [facility] [place] [facility] Apr 24, 2022 07:00 AM VA-TOBACCO QUIT 15 YRS OR MORE [facility] [place] [facility] Apr 27, 2021 03:00 PM VA-TOBACCO FORMER USER [facility] [place] [facility] Apr 27, 2021 03:00 PM VA-TOBACCO QUIT 15 YRS OR MORE [facility] [place] [facility] Mar 17, 2020 03:00 PM VA-TOBACCO FORMER USER [facility] [place] [facility] Mar 17, 2020 03:00 PM VA-TOBACCO QUIT 15 YRS OR MORE [facility] [place] [facility] Mar 31, 2019 09:04 AM VA-TOBACCO FORMER USER [facility] [place] [facility] Mar 31, 2019 09:04 AM VA-TOBACCO QUIT 15 YRS OR MORE [facility] [place] [facility] Encounter Notes: All associated encounter notes This section contains the clinical notes associated to the Encounter. Date/Time Encounter Note(s) Provider Source Mar 18, 2024 10:23 AM SOCIAL WORK GROUP COUNSELING NOTE: LOCAL TITLE: SOCIAL WORK GROUP NOTE STANDARD TITLE: SOCIAL WORK GROUP COUNSELING NOTE DATE OF NOTE: MAR 18, 2024@10:23 ENTRY DATE: MAR 18, 2024@10:23:09 AUTHOR: MARIALUISA SALCEDO EXP COSIGNER: URGENCY: STATUS: COMPLETED [employer] Group Date: 03/18/24 Time: 9 AM Number of group members: 20 Roll Handler: Marialuisa Salcedo [facility] began with a introduction [...] theme was on body and breath sensing. [place] engaged with doctor chiropractic and group members appropriately, participating in the meditation and reflection time. did not endorse SI/HI. [place]'s intention was to focus, calm, and let go of stress. DIAGNOSES: Persistent mood disorder, unspecified PTSD, chronic Cognitive Disorder (History of) Cerebral Infarction, Unspecified [facility] Connect ([facility]VC) Standard Documentation V[facility] Clinician Resources Only: E911 (Emergency Call Relay Center): [phone] National Veterans Crisis Line - 988 then press #1. BETH Suicide Coordinator [phone], Ext. [phone]; Back-up Ext. [phone] [place] Police, Sangeeta CAMPOS [phone] Introduction: Visit is being conducted by [place] [facility] [facility]. identified with 2 identifiers: [X] Full Name [X] Date of [ ] VA ID Card Emergency Plan: confirmed and/or provided the following information in case of emergency or technology failure. PATIENT PHONE - PHONE NUMBER [CELLULAR] - Is patient phone number correct, if not, enter below: 's phone number: TAJ SAVANNA DE LA ROSA [address], [place], [address] 's present location and address for appointment: his home 's emergency contact name and phone number: E-Cont.: JUVENCIO DE LA ROSA Relation Type: UNRELATED FRIEND/OTHER Relation Note: OTHERS [address] [place] [address] [facility] reported that location is private and safe: Yes Informed Consent: informed of the risks and benefits of Telehealth video care. has the right to refuse video services. If refuses video visit, a [id number] visit will be scheduled. [place] verbalized consent for this video visit: Yes [place] provided consent for any other persons present for visit: Yes If yes, who and relationship to patient:group Secure visit: Visit was locked for security and privacy:Yes /nicole/ REBECA CARABALLO Laser Specialist Signed: 03/18/2024 10:39 MARIALUISA SALCEDO [facility]
--- OUTSIDE RECORDS SUMMARY | 2024-05-05 07:43 | XMS_ITS | Encounter Summary ---
Author Name [facility] [place] Address [address] [place] [address] Care Team Providers Care Automotive Quality Manager Name Role Phone JOSE MANUEL PITT [...] Burgess's Name Patient's Relationship to Policy Burgess [facility] HEALTH PLAN MEDICARE SUPPLEMEN BETY MEDIC ARE SUPPL EMENT A Feb 18, 2022 SUPP1 [id number] [phone] GINA DE LA ROSA PATIENT [facility] MED PREFER/SEN IOR CARE MEDICARE SUPPLEMEN BETY MEDIC ARE SUPPL EMENT A Feb 18, 2021 SUPP1 [id number] GINA DE LA ROSA PATIENT Selected Encounter This section includes the information on [place] at [place] for the Encounter. Date/Time Encounter Type Encounter Description Reason Provider Source Mar 30, 2024 07:00 AM PSYTX W PT 45 MINUTES [facility] - IND ICD-10-CM F34.9 Persistent mood [affective] disorder, unspecified MOISES PADILLA Encounter Template Text not used by [facility] Assessments - Encounter Diagnoses This section includes the primary and secondary diagnoses documented for the Encounter. Date/Time Primary/Secondary Diagnosis Diagnosis Name Provider Source Mar 30, 2024 08:02 AM PRIMARY Persistent mood [affective] disorder, unspecified MOISES PADILLA [place] [facility] [place] [facility] Mar 30, 2024 08:02 AM SECONDARY Cerebral infarction, unspecified MOISES PADILLA [place] [facility] [place] [facility] Mar 30, 2024 08:02 AM SECONDARY Post-traumatic stress disorder, chronic MOISES PADILLA [place] [facility] [place] [facility] Mar 30, 2024 08:02 AM SECONDARY Unsp symptoms and signs w cognitive functions and awareness MOISES PADILLA [place] [facility] [place] [facility] Plan of Treatment: Future Appointments [...] AMBULATORY - PSYCHIATRY [facility] [place] [facility] Apr 08, 2024 09:00 AM AMBULATORY - PSYCHIATRY [facility] [place] [facility] Apr 13, 2024 07:00 AM AMBULATORY - PSYCHIATRY [facility] [place] [facility] Apr 15, 2024 09:00 AM AMBULATORY - PSYCHIATRY [facility] [place] [facility] Apr 20, 2024 09:00 AM AMBULATORY - NEUROLOGY [facility] [place] [facility] Apr 22, 2024 09:00 AM AMBULATORY - PSYCHIATRY [facility] [place] [facility] Apr 29, 2024 09:00 AM AMBULATORY - PS[facility]CHIATRY [facility] [place] [facility] May 04, 2024 07:00 AM AMBULATORY - PSYCHIATRY [facility] [place] [facility] May 04, 2024 10:15 AM AMBULATORY - MEDICINE [facility] [place] [facility] May 06, 2024 09:00 AM AMBULATORY - PSYCHIATRY [facility] [place] [facility] May 13, 2024 09:00 AM AMBULATORY - PSYCHIATRY [place] [facility] [place] [facility] May 14, 2024 09:30 AM [facility] May 20, 2024 09:00 AM AMBULATORY - PSYCHIATRY [place] [facility] [place] [facility] May 21, 2024 02:00 PM AMBULATORY - MEDICINE [facility] [place] [facility] May 25, 2024 07:00 AM AMBULATORY - PSYCHIATRY [place] [facility] [place] [facility] May 27, 2024 09:00 AM AMBULATORY - PSYCHIATRY [place] [facility] [place] [facility] Jun 01, 2024 01:00 PM AMBULATORY - PSYCHIATRY [facility] [place] [facility] Jun 03, 2024 09:00 AM AMBULATORY - PSYCHIATRY [facility] [place] [facility] Jun 09, 2024 07:00 AM [facility] [place] [facility] Jun 10, 2024 09:00 AM [facility] Active, Pending, and Scheduled Orders This section includes a listing of several types of active, pending, and scheduled orders, including clinic medications orders, diagnostic test orders, procedure orders and consult orders; where the start date of the order is 45 days before the date of the Encounter or 45 days after the date of theEncounter. The data comes from all [place] treatment facilities. Test Date/Time Test Type Test Details Facility Name Apr 27, 2024 12:00 AM Laboratory - Chemi stry Order OCCULT BLOOD FIT X1 SCREEN (MFP ONLY) STOOL FECES SP [facility] Social History: Smoking Status (Most current) [...] Nurys ko Mar 30, 2024 07:00 AM [place]-TOBACCO USE FOR TYRONE CIGARETTES [facility] Tobacco Use History This section includes a history of the smoking, or tobacco-related health factors, that were collected on or before the date of the Encounter. The data comes from the [place] facility where the Encounter took place. Date/Time Smoking Status/Tobacco Use Comment F acility Mar 30, 2024 07:00 AM VA-TOBACCO USE FOR TYRONE OTHER TYPE [facility] [place] [facility] Apr 15, 2023 07:00 AM VA-TOBACCO FORMER USER [facility] [place] [facility] Apr 15, 2023 07:00 AM VA-TOBACCO QUIT 15 YRS OR MORE [facility] [place] [facility] Apr 24, 2022 07:00 AM VA-TOBACCO FORMER USER [facility] [place] [facility] Apr 24, 2022 07:00 AM VA-TOBACCO QUIT 15 YRS OR MORE [facility] [place] [facility] Apr 27, 2021 03:00 PM VA-TOBACCO FORMER USER [facility] [place] [facility] Apr 27, 2021 03:00 PM VA-TOBACCO QUIT 15 YRS OR MORE [facility] [place] [facility] Mar 17, 2020 03:00 PM VA-TOBACCO FORMER USER [facility] [place] [facility] Mar 17, 2020 03:00 PM VA-TOBACCO QUIT 15 YRS OR MORE [facility] [place] [facility] Mar 31, 2019 09:04 AM VA-TOBACCO FORMER USER [facility] [place] [facility] Mar 31, 2019 09:04 AM VA-TOBACCO QUIT 15 YRS OR MORE [place] [facility] [place] [facility] Encounter Notes: All associated encounter notes This section contains the clinical notes associated to the Encounter. Date/Time Encounter Note(s) Provider Source Mar 30, 2024 07:11 AM PSYCHOLOGY NOTE: LOCAL TITLE: PSYCHOLOGY NOTE STANDARD TITLE: PSYCHOLOGY NOTE DATE OF NOTE: MAR 30, 2024@07:11 ENTRY DATE: MAR 30, 2024@07:11:46 AUTHOR: MOISES PADILLA COSIGNER: URGENCY: STATUS: COMPLETED [place] was identified by Visual recognition and patient name. VISIT DURATION 45 minutes DIAGNOSES: Persistent mood disorder, unspecified PTSD, chronic Cognitive Disorder (History of) Cerebral Infarction, Unspecified PRESENTING PROBLEMS: presented on time and we resumed treatment as usual, focusing on the news about his Carlyn's recent Lymphoma diagnosis. He was tearful throughout the session as he described the results, treatment, and stressors. SESSION FOCUS: Aury was tearful at the start of the session, sharing the update that since our last session they learned more information about Carlyn's recent Hodgkin's Lymphoma diagnosis. She reportedly has Stage 4 cancer and it is located in her neck, underarm, spleen, and one small point near her liver. The two have been struggling with the news in their own ways. Carlyn has reportedly been on two rounds of chemotherapy treatment with a plan to continue 2x per month until August. Much of the session was spent giving empathy and creating a safe holding space for Aury to process his fears, sadness, and frustrations. Themes of loss of control have been significant for both of them. Aury focused on his frustrations about her repeating the story to others. We talked about how he can try to give her space to talk or remove himself if he is feeling too upset to hear it. Lastly, this provider emphasized his own self-care, which has taken a back seat lately. [place] was encouraged to find something that he could do as a form of distraction/relaxation, instead of focusing on the diagnosis so much. 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 ASSESSMENT: BRIEF ASSESSMENT OF MENTAL STATUS: 1. [...] ssns e/o/w (during heightened stress): 0700 Tuesdays Homelessness/Food Insecurity Screen: In the past 2 months, have you been living in stable housing that you own, rent, or stay in as part of a household? Yes - Living in stable housing. Are you worried or concerned that in the next 2 months you may NOT have stable housing that you own, rent, or stay in as part of a household? No - Not worried about housing near future The reports the following: Within the past 12 months, you worried whether your food would run out before you got money to buy more. Never true Within the past 12 months, the food you bought just didn't last and you didn't have money to get more. Never true Tobacco Use Screening: The patient is a former cigarette smoker. The patient formerly used other types of tobacco. Alcohol Use Screen (AUDIT-C): Alcohol Screen: SCREEN FOR ALCOHOL (AUDIT-C) An alcohol screening test (AUDIT-C) was negative (score=0). 1. How often did you have a drink containing alcohol in the past year? Consider a drink to be a 12 ounce can or bottle of regular beer, 8 ounces of malt liquor, a 5 ounce glass of table wine, or a 1.5 ounce shot of liquor (like scotch, gin, or vodka). Never 2. How many drinks containing alcohol did you have on a typical day when you were drinking in the past year? Response not required due to responses to other questions. 3. How often did you have six or more drinks on one occasion in the past year? Response not required due to responses to other questions. /nicole/ Moises Padilla PsyD Staff Psychologist Signed: 03/30/2024 08:02 MOISES PADILLA [place] [facility]
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
--- OUTSIDE RECORDS SUMMARY | 2024-05-05 07:43 | XMS_ITS ---
Author Name [facility] [place] Address [address] [place] [address] Care Team Providers Care Forestry Engineer Name Role Phone JOSE MANUEL PITT Primary [...] SUPPL EMENT A Feb 18, 2022 SUPP1 [id number] GINA DE LA ROSA PATIENT [facility] PREFER/SEN IOR CARE MEDICARE SUPPLEMEN BETY MEDIC ARE SUPPL EMENT A Feb 18, 2021 SUPP1 [id number] GINA DE LA ROSA PATIENT Selected Encounter This section includes the information on record at [place] for the Encounter. Date/Time Encounter Type Encounter Description Reason Provider Source Jul 25, 2023 01:30 PM OFFICE O/P EST HI 40 [facility] - IND ICD-10-CM F34.9 Persistent mood [affective] disorder, unspecified [employer] Encounter Template Text not used by [place] Assessments - Encounter Diagnoses This section includes the primary and secondary diagnoses documented for the Encounter. Date/Time Primary/Secondary Diagnosis Diagnosis Name Provider Source Jul 26, 2023 05:20 PM PRIMARY Persistent mood [affective] disorder, unspecified LACHELLE PIERREGUY Chan [facility] [place] [facility] Jul 26, 2023 05:20 PM SECONDARY Post-traumatic stress disorder, chronic LACHELLE PIERREGUY Chan [facility] [place] [facility] Plan of Treatment: Future Appointments (+ 6 months) and Future Tests (+/- 45 days) The Plan of Treatment section includes future care activities for the patient from all [place] [facility] This section includes future appointments and future orders which are active, pending or scheduled. Future Appointments This section includes appointments that were scheduled to occur 6 months from the date of the Encounter, up to a maximum of 20 appointments. The data comes from all [place] treatment facilities. Appointment Date/Time Appointment Type Appointme nt Facility Name Jul 29, 2023 07:00 AM AMBULATORY - PS[facility]CHIATRY [facility] [place] [facility] Jul 29, 2023 08:30 AM AMBULATORY [facility] MEDICINE [facility] [place] [facility] Aug 21, 2023 10:00 AM AMBULATORY - MEDICINE [facility] Sep 02, 2023 07:00 AM AMBULATORY [facility] PS[facility]IATRY [facility] [place] [facility] Sep 09, 2023 05:00 PM AMBULATORY - PSYCHIATRY [facility] [place] [facility] Sep 11, 2023 09:00 AM AMBULATORY - PS[facility]CHIATRY [facility] [place] [facility] Sep 19, 2023 01:30 PM AMBULATORY - PSYCHIATRY [facility] [place] [facility] Sep 25, 2023 09:00 AM AMBULATORY - PS[facility]CHIATRY [facility] [place] [facility] Sep 30, 2023 07:00 AM AMBULATORY - PS[facility]CHIATRY [facility] [place] [facility] Oct 02, 2023 09:00 AM AMBULATORY - PS[facility]CHIATRY [facility] [place] [facility] Oct 09, 2023 09:00 AM AMBULATORY - PS[facility]CHIATRY [facility] [place] [facility] Oct 16, 2023 09:00 AM AMBULATORY - PS[facility]CHIATRY [facility] [place] [facility] Oct 23, 2023 09:00 AM AMBULATORY - PS[facility]CHIATRY [facility] [place] [facility] Oct 28, 2023 07:00 AM AMBULATORY - PSYCHIATRY [facility] [place] [facility] Oct 28, 2023 08:00 AM AMBULATORY - NEUROLOGY [facility] [place] [facility] Oct 28, 2023 09:30 AM AMBULATORY - PSYCHIATRY [facility] [place] [facility] Oct 30, 2023 09:00 AM AMBULATORY - PSYCHIATRY [facility] [place] [facility] Nov 06, 2023 09:00 AM AMBULATORY - PS[facility]CHIATRY [facility] [place] [facility] Nov 13, 2023 09:00 AM AMBULATORY - PS[facility]CHIATRY [facility] [place] [facility] Nov 19, 2023 07:00 AM AMBULATORY - PS[facility]CHIATRY [facility] [place] [facility] Social History: Smoking Status (Most current) and Tobacco Use (All prior to encounter date) This section includes the most current, and the historical, smoking and tobacco- related health factors from the [place] facility where the Encounter took place. Current Smoking Status This section includes the most current smoking, or tobacco-related health factor, from the [place] facility where the Encounter took place. Date/Time Current Smoking Status Comment Facil ity Apr 15, 2023 07:00 AM VA-TOBACCO FORMER USER [place] [facility] [place] [facility] Tobacco Use History This section includes a history of the smoking, or tobacco-related health factors, that were collected on or before the date of the Encounter. The data comes from the [place] facility where the Encounter took place. Date/Time Smoking Status/Tobacco Use Comment F acility Apr 15, 2023 07:00 AM VA-TOBACCO QUIT 15 YRS OR MORE [facility] [place] [facility] Apr 24, 2022 07:00 AM VA-TOBACCO FORMER USER [facility] [place] [facility] Apr 24, 2022 07:00 AM VA-TOBACCO QUIT 15 YRS OR MORE [facility] [place] [facility] Apr 27, 2021 03:00 PM VA-TOBACCO FORMER USER [facility] [place] [facility] Apr 27, 2021 03:00 PM VA-TOBACCO QUIT 15 YRS OR MORE [facility] [place] [facility] Mar 17, 2020 03:00 PM VA-TOBACCO FORMER USER [facility] [place] [facility] Mar 17, 2020 03:00 PM VA-TOBACCO QUIT 15 YRS OR MORE [facility] [place] [facility] Mar 31, 2019 09:04 AM VA-TOBACCO FORMER USER [facility] [place] [facility] Mar 31, 2019 09:04 AM VA-TOBACCO QUIT 15 YRS OR MORE [facility] Encounter Notes: All associated encounter notes This section contains the clinical notes associated to the Encounter. Date/Time Encounter Note(s) Provider Source Jul 25, 2023 01:38 PM PSYCHIATRY NOTE: LOCAL TITLE: PSYCHIATRY NOTE STANDARD TITLE: PSYCHIATRY NOTE DATE OF NOTE: JUL 25, 2023@13:38 ENTRY DATE: JUL 25, 2023@13:38:07 AUTHOR: SALLY PIERRE COSIGNER: URGENCY: STATUS: COMPLETED PSYCHIATRY FOLLOW UP VISIT TAJ DE LA ROSA is a 67yo MARITAL STATUS - WHITE MALE with a history of [employer] FROM Nov TO Nov INTERVAL HISTORY No major issues to report the same . Ongoing frustrations when he has trouble completing a task. Sleep has been 'good', in bed 8-9pm and up at 4am. No middle insomnia anymore. Using CPAP. Has noticed that his leg moves while watching TV--dragging it repeatedly against the rug, does not realize he is doing it. Usually at night. Also has back pain. He does not do it when he is visiting other people. CURRENT MEDICATIONS Active Outpatient Medications (including Supplies): BREXPIPRAZOLE 1MG TAB TAKE ONE TABLET BY MOUTH ONCE DAILY ACTIVE FOR MOOD CLONIDINE HCL 0.1MG TAB TAKE ONE TABLET BY MOUTH AT ACTIVE BEDTIME FOR INSOMNIA ONABOTULINUMTOXINA 200 UNIT/FRANCISCO J INJ INJECT DIRECTED HOLD INTRAMUSCULARLY EVERY THREE MONTHS FOR MIGRAINE HEADACHES TRAZODONE HCL 100MG TAB TAKE TWO TABLETS BY MOUTH AT ACTIVE BEDTIME FOR INSOMNIA TROSPIUM CL 20MG TAB TAKE ONE TABLET BY MOUTH TWICE DAILY ACTIVE ADMINISTER ON AN EMPTY STOMACH Non-VA ATORVASTATIN CALCIUM 80MG TAB 80MG BY [...] multiple providers R6 04/15/2019 KIRK COTTRELL BMI: 36.3 PREVIOUS PSYCHIATRIC MEDICATION TRIALS AND RESPONSE Ambien--sleepwalking [...] in 2005 and hospitalization at [facility] (overdose on morphine), also with an unclear [...] dose of trazodone, but continued to have deputy commonwealth's attorney awakening which resolved with addition of clonidine at bedtime. Other pertinent medical hx includes CAD, s/p CT, s/p stents. Poorly controlled DM. Neuropathy, chronic [...] Neuropsych testing scheduled for 09/[address] Mcfdaden DIAGNOSIS: I. Mood Disorder II. Chronic PTSD [...] after the functional strokes. PLAN -continue brexpiprazole 1 mg daily. Monitor TD symptoms--Left Foot. -continue [...] of active outpatient prescriptions dispensed from this [place] (local) and dispensed from another [place] or DoD facility (remote) as well as [...] provider. Problem List was reviewed and updated. MH AIMS Testing: AIMS (Mental Health Instrument) The patient was evaluated for symptoms of tardive dyskinesia using the AIMS. Total score for items 1-7: 2 /nicole/ SALLY PIERRE PSYCHIATRIST Signed: 07/26/2023 17:20 SALLY PIERRE [facility]
--- OUTSIDE RECORDS SUMMARY | 2024-05-05 07:43 | XMS_ITS | Encounter Summary ---
Author Name [facility] [place] Address [address] [place] [address] Care Team Providers Care Assistant Pressman Name Role Phone JOSE MANUEL PITT Primary [...] Name Patient's Relationship to Policy [facility] HE[facility] PLAN MEDICARE SUPPLEMEN BETY MEDIC ARE SUPPL EMENT A Feb 18, 2022 SUPP1 [id number] [phone] GINA DE LA ROSA PATIENT [facility] MED PREFER/SEN IOR CARE MEDICARE SUPPLEMEN BETY MEDIC ARE SUPPL EMENT A Feb 18, 2021 SUPP1 [id number] GINA DE LA ROSA PATIENT Selected Encounter This section includes the information on record at [place] for the Encounter. Date/Time Encounter Type Encounter Description Reason Provider Source Oct 09, 2023 09:00 AM GROUP PSYCHOTHERAPY [facility]-GROUP ICD-10-CM F43.12 Post-traumati c stress disorder, chronic MARIALUISA SALCEDO Encounter Template Text not used by [place] Assessments - Encounter Diagnoses This section includes the primary and secondary diagnoses documented for the Encounter. Date/Time Primary/Secondary Diagnosis Diagnosis Name Provider Source Oct 09, 2023 10:13 AM PRIMARY Post-traumatic stress disorder, chronic MARIALUISA SALCEDO [facility] [place] [facility] Plan of Treatment: Future Appointments (+ 6 [...] Appointment Type Appointme nt Facility Name Oct 16, 2023 09:00 AM AMBULATORY - PS[facility]IATRY [facility] [place] [facility] Oct 23, 2023 09:00 AM AMBULATORY - PSYCHIATRY [facility] [place] [facility] Oct 28, 2023 07:00 AM AMBULATORY - PSYCHIATRY [facility] [place] [facility] Oct 28, 2023 08:00 AM AMBULATORY - NEUROLOGY [facility] [place] [facility] Oct 28, 2023 09:30 AM AMBULATORY - PSYCHIATRY [facility] [place] [facility] Oct 30, 2023 09:00 AM AMBULATORY - PSYCHIATRY [facility] [place] [facility] Nov 06, 2023 09:00 AM AMBULATORY - PSYCHIATRY [facility] [place] [facility] Nov 13, 2023 09:00 AM AMBULATORY - PSYCHIATRY [facility] [place] [facility] Nov 19, 2023 07:00 AM AMBULATORY - PSYCHIATRY [facility] [place] [facility] Nov 20, 2023 09:00 AM AMBULATORY - PSYCHIATRY [facility] [place] [facility] Nov 27, 2023 09:00 AM AMBULATORY - PSYCHIATRY [facility] [place] [facility] Dec 04, 2023 09:00 AM AMBULATORY - PSYCHIATRY [facility] [place] [facility] Dec 11, 2023 09:00 AM AMBULATORY - PSYCHIATRY [facility] [place] [facility] Dec 16, 2023 09:30 AM AMBULATORY - PSYCHIATRY [facility] [place] [facility] Dec 18, 2023 09:00 AM AMBULATORY - PSYCHIATRY [facility] [place] [facility] Dec 19, 2023 07:30 AM AMBULATORY - MEDICINE [place] [facility] [place] [facility] Dec 23, 2023 07:00 AM AMBULATORY - [place]IATRY [facility] [place] [facility] Dec 25, 2023 09:00 AM AMBULATORY - [place]IATRY [facility] [place] [facility] Jan 01, 2024 09:00 AM AMBULATORY - [facility]IATRY [facility] [place] [facility] Jan 08, 2024 09:00 AM AMBULATORY - [place]IATRY [facility] [place] [facility] Active, Pending, and Scheduled Orders This section includes a listing of several types of active, pending, and scheduled orders, including clinic medications orders, diagnostic test orders, procedure orders and consult orders; where the start date of the order is 45 days before the date of the Encounter or 45 days after the date of theEncounter. The data comes from all [place] treatment facilities. Test Date/Time Test Type Test Details Facility Name Oct 25, 2023 02:36 PM Consult Order COMMUNITY CARE-UROLOGY Cons Technical Intern's Choice [place] [facility] [place] [facility] Oct 28, 2023 01:47 PM Consult Order COMMUNITY CARE-NEUROLOGY Cons [facility] [place] [facility] Social History: Smoking Status (Most current) and [...] 15, 2023 07:00 AM VA-TOBACCO [facility] Tobacco Use History This section includes a history of the smoking, or tobacco-related health factors, that were collected on or before the date of the Encounter. The data comes from the [place] facility where the Encounter took place. Date/Time Smoking Status/Tobacco Use Comment F acility Apr 15, 2023 07:00 AM VA-TOBACCO QUIT 15 YRS OR MORE [place] [facility] [place] [facility] Apr 24, 2022 07:00 AM VA-TOBACCO FORMER USER [place] [facility] [place] [facility] Apr 24, 2022 07:00 AM VA-TOBACCO QUIT 15 YRS OR MORE [facility] [place] [facility] Apr 27, 2021 03:00 PM VA-TOBACCO FORMER USER [facility] [place] [facility] Apr 27, 2021 03:00 PM VA-TOBACCO QUIT 15 YRS OR MORE [facility] [place] [facility] Mar 17, 2020 03:00 PM VA-TOBACCO FORMER USER [facility] [place] [facility] Mar 17, 2020 03:00 PM VA-TOBACCO QUIT 15 YRS OR MORE [facility] [place] [facility] Mar 31, 2019 09:04 AM VA-TOBACCO FORMER USER [facility] [place] [facility] Mar 31, 2019 09:04 AM VA-TOBACCO QUIT 15 YRS OR MORE [place] [facility] [place] [facility] Encounter Notes: All associated encounter notes This section contains the clinical notes associated to the Encounter. Date/Time Encounter Note(s) Provider Source Oct 09, 2023 10:07 AM SOCIAL WORK GROUP COUNSELING NOTE: LOCAL TITLE: SOCIAL WORK GROUP NOTE STANDARD TITLE: SOCIAL WORK GROUP COUNSELING NOTE DATE OF NOTE: OCT 09, 2023@10:07 ENTRY DATE: OCT 09, 2023@10:07:25 AUTHOR: MARIALUISA SALCEDO EXP COSIGNER: URGENCY: STATUS: COMPLETED iRest Group Date: 10/09/23 Time: 9 AM Number of group members: 9 Machine Sand Mixer: Marialuisa Salcedo, [facility] Group began with a introduction that [...] of the meditation. Today's theme was on milind. Blairsden Graeagle engaged with park interpretive specialist and group members appropriately, participating in the meditation and reflection time. Blairsden Graeagle did not endorse SI/HI. stated their intention wsa to relax and experience milind. DIAGNOSES: Persistent mood disorder, unspecified PTSD, chronic Cognitive Disorder (History of) Cerebral Infarction, Unspecified [facility] Connect (VVC) Standard Documentation VVC Clinician Resources Only: E911 (Emergency Call Relay Center): [phone] National Veterans Crisis Line - 988 then press #1. [facility] Suicide Coordinator [phone], Ext. [phone]; Back-up Ext. [phone] [place] Police, [place], [place]ange[place] [phone] Introduction: Visit is being conducted by [place] [employer] [facility]. Blairsden Graeagle identified with 2 identifiers: [X] Full Name [X] Date of [ ] VA ID Card Emergency Plan: confirmed and/or provided the following information in case of emergency or technology failure. PATIENT PHONE - PHONE NUMBER [CELLULAR] - Is patient phone number correct, if not, enter below: 's phone number: TAJ DE LA ROSA [address], [place], [address] 's present location and address for appointment: his home 's emergency contact name and phone number: E-Cont.: JUVENCIO DE LA ROSA Relation Type: UNRELATED FRIEND/OTHER Relation Note: OTHERS [address] [place] [address] [facility] Blairsden Graeagle reported that location is private and safe: Yes Informed Consent: Blairsden Graeagle informed of the risks and benefits of Telehealth video care. has the right to refuse video services. If refuses video visit, a [id number] visit will be scheduled. Blairsden Graeagle verbalized consent for this video visit: Yes provided consent for any other persons present for visit: Yes If yes, who and relationship to patient:group Secure visit: Visit was locked for security and privacy:Yes /nicole/ REBECA CARABALLO Supervisor [employer] Signed: 10/09/2023 10:14 MARIALUISA SALCEDO [place] [facility]
--- OUTSIDE RECORDS SUMMARY | 2024-05-05 07:43 | XMS_ITS | Encounter Summary ---
Author Name [facility] [place] Organization [facility] [place] Address [address] [place] [address] Care Team Providers Care Academic Dean Name Role Phone JOSE MANUEL PITT Primary [...] SUPPL EMENT A Feb 18, 2022 SUPP1 [id number] [phone] GINA DE LA ROSA PATIENT [facility] PREFER/SEN IOR CARE MEDICARE SUPPLEMEN BETY MEDIC ARE SUPPL EMENT A Feb 18, 2021 SUPP1 [id number] [phone] GINA DE LA ROSA PATIENT Selected Encounter This section includes the information on record at [place] for the Encounter. Date/Time Encounter Type Encounter Description Reason Provider Source Jan 27, 2024 01:30 PM OFFICE O/P EST MOD 30 MIN [facility] [place] ICD-10-CM F34.9 Persistent mood [affective] disorder, unspecified [employer] [facility] Encounter Template Text not used by [place] Assessments - Encounter Diagnoses This section includes the primary and secondary diagnoses documented for the Encounter. Date/Time Primary/Secondary Diagnosis Diagnosis Name Provider Source Jan 28, 2024 03:37 PM PRIMARY Persistent mood [affective] disorder, unspecified [facility] [place] [facility] Jan 28, 2024 03:37 PM SECONDARY Post-traumatic stress disorder, chronic [facility] [place] [facility] Jan 28, 2024 03:37 PM SECONDARY Unsp symptoms and signs w cognitive functions and awareness [facility] [place] [facility] Plan of Treatment: Future Appointments (+ 6 months) and Future Tests (+/- 45 days) The Plan of Treatment section includes [facility] [place] [facility] This section includes future appointments and [...] AMBULATORY - PS[facility]CHIATRY [facility] [place] [facility] Feb 05, 2024 09:00 AM AMBULATORY - PSYCHIATRY [facility] [place] [facility] Feb 10, 2024 07:00 AM AMBULATORY - PSYCHIATRY [facility] [place] [facility] Feb 24, 2024 07:00 AM AMBULATORY - PSYCHIATRY [facility] [place] [facility] Mar 04, 2024 09:00 AM AMBULATORY - PSYCHIATRY [facility] [place] [facility] Mar 11, 2024 09:00 AM AMBULATORY - PSYCHIATRY [facility] [place] [facility] Mar 18, 2024 09:00 AM AMBULATORY - PSYCHIATRY [facility] [place] [facility] Mar 25, 2024 09:00 AM AMBULATORY - PSYCHIATRY [facility] [place] [facility] Mar 30, 2024 07:00 AM AMBULATORY - PSYCHIATRY [facility] [place] [facility] Mar 30, 2024 01:00 PM AMBULATORY - PSYCHIATRY [facility] [place] [facility] Apr 01, 2024 09:00 AM AMBULATORY - PSYCHIATRY [facility] [place] [facility] Apr 08, 2024 09:00 AM AMBULATORY - PSYCHIATRY [facility] [place] [facility] Apr 13, 2024 07:00 AM AMBULATORY - PSYCHIATRY [facility] [place] [facility] Apr 15, 2024 09:00 AM AMBULATORY - PSYCHIATRY [facility] [place] [facility] Apr 20, 2024 09:00 AM AMBULATORY - NEUROLOGY [facility] [place] [facility] Apr 22, 2024 09:00 AM AMBULATORY - PSYCHIATRY [facility] [place] [facility] Apr 29, 2024 09:00 AM AMBULATORY - PSYCHIATRY [facility] [place] [facility] May 04, 2024 07:00 AM AMBULATORY - PSYCHIATRY [facility] [place] [facility] May 04, 2024 10:15 AM AMBULATORY - MEDICINE [facility] [place] [facility] May 06, 2024 09:00 AM AMBULATORY - PSYCHIATRY [facility] [place] [facility] Social History: Smoking Status (Most current) [...] ity Apr 15, 2023 07:00 AM VA-TOBACCO QUIT 15 YRS OR MORE IN [facility] [place] [facility] Tobacco Use History This section includes a history of the smoking, or tobacco-related health factors, that were collected on or before the date of the Encounter. The data comes from the [place] facility where the Encounter took place. Date/Time Smoking Status/Tobacco Use Comment F acility Apr 15, 2023 07:00 AM VA-TOBACCO QUIT 15 YRS OR MORE [facility] [place] [facility] Apr 24, 2022 07:00 AM VA-TOBACCO FORMER USER [facility] [place] [facility] Apr 24, 2022 07:00 AM VA-TOBACCO QUIT 15 YRS OR MORE [facility] [place] [facility] Apr 27, 2021 03:00 PM VA-TOBACCO FORMER USER [facility] [place] [facility] Apr 27, 2021 03:00 PM VA-TOBACCO QUIT 15 YRS OR MORE IN [facility] [place] [facility] Mar 17, 2020 03:00 PM VA-TOBACCO FORMER USER IN [facility] [place] [facility] Mar 17, 2020 03:00 PM VA-TOBACCO QUIT 15 YRS OR MORE IN [facility] [place] [facility] Mar 31, 2019 09:04 AM VA-TOBACCO FORMER USER IN [facility] [place] [facility] Mar 31, 2019 09:04 AM VA-TOBACCO QUIT 15 YRS OR MORE IN [facility] [place] [facility] Encounter Notes: All associated encounter notes This section contains the clinical notes associated to the Encounter. Date/Time Encounter Note(s) Provider Source Jan 27, 2024 01:41 PM PSYCHIATRY NOTE: LOCAL TITLE: PSYCHIATRY NOTE STANDARD TITLE: PSYCHIATRY NOTE DATE OF NOTE: JAN 27, 2024@13:41 ENTRY DATE: JAN 27, 2024@13:41:23 AUTHOR: SALLY PIERRE COSIGNER: URGENCY: STATUS: COMPLETED PSYCHIATRY FOLLOW UP VISIT TJA DE LA ROSA is a 68yo MARITAL STATUS - WHITE MALE with a history of [employer] FROM Nov TO Nov INTERVAL HISTORY Met together with who supplied supplementary history. Mood is about 6/10 on a bipolar scale, 5 being euthymic. He describes mood as a little low due to holidays, not being able to see grandkids. On brexpiprazole 1mg, mood was immediately lower. Upon restarting he seemed hyper for 1 week, then mood seemed to even out. is reporting that his foot movement happened prior to medications, if anything they have slowed down. There was also a hand movement, a twitch and tremor, that went away. Sleeping has been better, 11pm-6am. Some middle insomnia 30m, occasionally. No more cleaning at night. Also feels more focused, able to do one task at time and able to prioritize much better. Less frantic, less anxious. Can sit and watch TV now. CURRENT MEDICATIONS Active Outpatient Medications (including Supplies): AMMONIUM LACTATE 12% LOTION APPLY SMALL AMOUNT TOPICALLY ACTIVE AT BEDTIME FOR DRY IRRITATED SKIN UNDER OCCLUSION Indication: FOR DRY SKIN ARMODAFINIL 50MG TAB TAKE TWO TABLETS BY MOUTH EVERY ACTIVE MORNING Indication: TO IMPROVE WAKEFULNESS BREXPIPRAZOLE 1MG TAB TAKE ONE TABLET BY [...] PIERRE E Hypoglycaemia E16.2 04/30/2022 SWEETIEJOSE MANUEL Mood disorder F34.9 11/21/2021 SALLY PIERRE E Migraine G43.909 01/30/2021 MIGUEL CARRILLO Y Hemiparesis I69.959 10/07/2020 MIGUEL CARRILLO Y Polyneuropathy G62.9 03/23/2020 MIGUEL CARRILLO Y Posttraumatic stress disorder F43.1 08/07/2019 CATRACHITA MENDEZ [...] attempt in 2005 and hospitalization at [facility] (overdose on morphine), also with an [...] dose of trazodone, but continued to have flue lining dipper awakening which resolved with addition of clonidine at bedtime. Other pertinent medical hx includes CAD, s/p NC, s/p stents. Poorly controlled DM. Neuropathy, chronic [...] consult--follow up with imaging, migraines, possible TD -INCREASE armodafinil to 150mg, target mood and cognition. -continue trazodone 200 mg nightly -continue clonidine [...] this [facility] (local) and dispensed from another [place] or [facility] facility (remote) as well as inpatient [...] the AIMS. Total score for items 1-7: 1 /nicole/ SALLY PIERRE PSYCHIATRIST Signed: 01/28/2024 15:37 SALLY PIERRE IN [facility]
--- OUTSIDE RECORDS SUMMARY | 2024-05-05 07:43 | XMS_ITS | Encounter Summary ---
Author Name [facility] [place] Organization [facility] [place] [place] Address [address] [place] [address] Care Team Providers Care Curing Oven Tender Name Role Phone JOSE MANUEL PITT Primary [...] Burgess's Name Patient's Relationship to Policy Burgess [facility] PLAN MEDICARE SUPPLEMEN BETY MEDIC ARE SUPPL EMENT A Feb 18, 2022 SUPP1 [id number] GINA DE LA ROSA PATIENT [email or web address] MED PREFER/SEN IOR CARE MEDICARE SUPPLEMEN BETY MEDIC ARE SUPPL EMENT A Feb 18, 2021 SUPP1 [id number] GINA DE LA ROSA PATIENT Selected Encounter This section includes the information on record at [place] for the Encounter. Date/Time Encounter Type Encounter Description Reason Provider Source Mar 04, 2024 09:00 AM STRESS MGMT CLASS [facility] ICD-10-CM F43.12 Post-traumatic stress disorder, chronic MARIALUISA SALCEDO Encounter Template Text not used by [place] Assessments - Encounter Diagnoses This section includes the primary and secondary diagnoses documented for the Encounter. Date/Time Primary/Secondary Diagnosis Diagnosis Name Provider Source Mar 04, 2024 10:25 AM PRIMARY Post-traumatic stress disorder, chronic MARIALUISA SALCEDO [place] [facility] [place] [facility] Plan of Treatment: Future Appointments (+ 6 months) and Future Tests (+/- 45 days) The Plan of Treatment section includes future care activities for the patient from all [place] treatmentfacilities. This section includes future appointments and future orders which are active, pending or scheduled. Future Appointments This section includes appointments that were scheduled to occur 6 months from the date of the Encounter, up to a maximum of 20 appointments. The data comes from all [place] treatment facilities. Appointment Date/Time Appointment Type Appointme nt Facility Name Mar 11, 2024 09:00 AM AMBULATORY - PSYCHIATRY [facility] [place] [facility] Mar 18, 2024 09:00 AM AMBULATORY - PSYCHIATRY [facility] [place] [facility] Mar 25, 2024 09:00 AM AMBULATORY - PSYCHIATRY [facility] [place] [facility] Mar 30, 2024 07:00 AM AMBULATORY - PSYCHIATRY [facility] [place] [facility] Mar 30, 2024 01:00 PM AMBULATORY - PSYCHIATRY [facility] [place] [facility] Apr 01, 2024 09:00 AM AMBULATORY - PSYCHIATRY [facility] [place] [facility] Apr 08, 2024 09:00 AM AMBULATORY - PSYCHIATRY [facility] [place] [facility] Apr 13, 2024 07:00 AM AMBULATORY - PSYCHIATRY [facility] [place] [facility] Apr 15, 2024 09:00 AM AMBULATORY - PSYCHIATRY [facility] [place] [facility] Apr 20, 2024 09:00 AM AMBULATORY - NEUROLOGY [facility] [place] [facility] Apr 22, 2024 09:00 AM AMBULATORY - PSYCHIATRY [facility] [place] [facility] Apr 29, 2024 09:00 AM AMBULATORY - PSYCHIATRY [facility] [place] [facility] May 04, 2024 07:00 AM AMBULATORY - PSYCHIATRY [facility] [place] [facility] May 04, 2024 10:15 AM AMBULATORY - MEDICINE [facility] [place] [facility] May 06, 2024 09:00 AM AMBULATORY - PSYCHIATRY [facility] [place] [facility] May 13, 2024 09:00 AM AMBULATORY - PSYCHIATRY [facility] [place] [facility] May 14, 2024 09:30 AM AMBULATORY - MEDICINE [place] [place] May 20, 2024 09:00 AM AMBULATORY - PSYCHIATRY [facility] [place] [facility] May 21, 2024 02:00 PM AMBULATORY - MEDICINE [facility] [place] [facility] May 25, 2024 07:00 AM AMBULATORY - PSYCHIATRY [place] [facility] [place] [facility] Social History: Smoking Status (Most current) and Tobacco Use (All prior to encounter date) This section includes the most current, and the historical, smoking and tobacco- related health factors from the [place] facility where the Encounter took place. Current Smoking Status This section includes the most current smoking, or tobacco-related health factor, from the [place] facility where the Encounter took place. Date/Time Current Smoking Status Comment Nurys ity Apr 15, 2023 07:00 AM VA-TOBACCO FORMER USER [place] [facility] [place] [facility] Tobacco Use History This section includes a history of the smoking, or tobacco-related health factors, that were collected on or before the date of the Encounter. The data comes from the [place] facility where the Encounter took place. Date/Time Smoking Status/Tobacco Use Comment F acility Apr 15, 2023 07:00 AM VA-TOBACCO QUIT 15 YRS OR MORE [facility] [place] [facility] Apr 24, 2022 07:00 AM VA-TOBACCO FORMER USER [facility] [place] [facility] Apr 24, 2022 07:00 AM VA-TOBACCO QUIT 15 YRS OR MORE [facility] [place] [facility] Apr 27, 2021 03:00 PM VA-TOBACCO FORMER USER [facility] [place] [facility] Apr 27, 2021 03:00 PM VA-TOBACCO QUIT 15 YRS OR MORE [facility] [place] [facility] Mar 17, 2020 03:00 PM VA-TOBACCO FORMER USER [facility] [place] [facility] Mar 17, 2020 03:00 PM VA-TOBACCO QUIT 15 YRS OR MORE [facility] [place] [facility] Mar 31, 2019 09:04 AM VA-TOBACCO FORMER USER [facility] [place] [facility] Mar 31, 2019 09:04 AM VA-TOBACCO QUIT 15 YRS OR MORE [place] [facility] [place] [facility] Encounter Notes: All associated encounter notes This section contains the clinical notes associated to the Encounter. Date/Time Encounter Note(s) Provider Source Mar 04, 2024 10:14 AM SOCIAL WORK GROUP COUNSELING NOTE: LOCAL TITLE: SOCIAL WORK GROUP NOTE STANDARD TITLE: SOCIAL WORK GROUP COUNSELING NOTE DATE OF NOTE: MAR 04, 2024@10:14 ENTRY DATE: MAR 04, 2024@10:14:20 AUTHOR: MARIALUISA SALCEDO EXP COSIGNER: URGENCY: STATUS: COMPLETED [employer] Group Date: 03/04/24 Time: 9 AM Number of group members: 16 Claim Analyst: Marialuisa Salcedo [facility] Group began with a introduction [...] thoughts. Today's theme was on inner resource. engaged with physical therapy resident and group members appropriately, participating in the meditation and reflection time. Jackman did not endorse SI/HI. 's intention was to increase calm, reduce anxiety, and improve sleep. DIAGNOSES: Persistent mood disorder, unspecified PTSD, chronic Cognitive Disorder (History of) Cerebral Infarction, Unspecified [place] [employer] (VVC) Standard Documentation VV Clinician Resources Only: E911 (Emergency Call Relay Center): [phone] National Veterans Crisis Line - 988 then press #1. BETH Suicide Coordinator [phone], Ext. [phone]; Back-up Ext. [phone] BETH [place] [phone] Introduction: Visit is being conducted by [employer]. Jackman identified with 2 identifiers: [X] Full Name [X] Date of [ ] VA ID Card Emergency Plan: confirmed and/or provided the following information in case of emergency or technology failure. PATIENT PHONE - PHONE NUMBER [CELLULAR] - Is patient phone number correct, if not, enter below: 's phone number: TAJ DE LA ROSA [address], [place], [address] 's present location and address for appointment: his home 's emergency contact name and phone number: E-Cont.: ESTRELLAJUVENCIO Relation Type: UNRELATED FRIEND/OTHER Relation Note: OTHERS [address] [place] [address] [facility] Jackman reported that location is private and safe: Yes Informed Consent: informed of the risks and benefits of Telehealth video care. has the right to refuse video services. If refuses video visit, a [id number] visit will be scheduled. Jackman verbalized consent for this video visit: Yes Jackman provided consent for any other persons present for visit: Yes If yes, who and relationship to patient:group Secure visit: Visit was locked for security and privacy:Yes /nicole/ REBECA CARABALLO Real Estate Agent/Broker Signed: 03/04/2024 10:26 MARIALUISA SALCEDO [facility]
--- OUTSIDE RECORDS SUMMARY | 2024-05-05 07:43 | XMS_ITS ---
Author Name [facility] [place] Address [address] [place] [address] Care Team Providers Care Meter Repair Shop Supervisor Name Role Phone JOSE MANUEL PITT [...] SUPPL EMENT A Feb 18, 2022 SUPP1 [id number] GINA DE LA ROSA PATIENT [facility] MED PREFER/SEN IOR CARE MEDICARE SUPPLEMEN BETY MEDIC ARE SUPPL EMENT A Feb 18, 2021 SUPP1 [id number] [phone] GINA DE LA ROSA PATIENT Selected Encounter This section includes the information on record at [place] for the Encounter. Date/Time Encounter Type Encounter Description Reason Provider Source Jun 13, 2023 10:30 AM THERAPEUTIC EXERCISES PHYSICAL THERAPY ICD-10-CM M25.552 Pain in left hip DANYA WELCH Encounter Template Text not used by [facility] Assessments - Encounter Diagnoses This section includes the primary and secondary diagnoses documented for the Encounter. Date/Time Primary/Secondary Diagnosis Diagnosis Name Provider Source Mar 26, 2024 11:31 AM PRIMARY Pain in left hip DANYA WELCH [facility] [place] [facility] Plan of Treatment: Future Appointments (+ [...] Date/Time Appointment Type Appointme nt Facility Name July 08, 2023 07:00 AM AMBULATORY - PSYCHIATRY [facility] [place] [facility] Jul 22, 2023 07:00 AM AMBULATORY - PS[facility]CHIATRY [facility] [place] [facility] Jul 22, 2023 08:00 AM AMBULATORY - NEUROLOGY [facility] [place] [facility] Jul 25, 2023 01:30 PM AMBULATORY - PSYCHIATRY [facility] [place] [facility] Jul 29, 2023 07:00 AM AMBULATORY - PSYCHIATRY [facility] [place] [facility] Jul 29, 2023 08:30 AM AMBULATORY - MEDICINE [facility] [place] [facility] Aug 21, 2023 10:00 AM AMBULATORY - MEDICINE [facility] Sep 02, 2023 07:00 AM AMBULATORY - PSYCHIATRY [facility] [place] [facility] Sep 09, 2023 05:00 PM AMBULATORY - PSYCHIATRY [facility] [place] [facility] Sep 11, 2023 09:00 AM AMBULATORY - PSYCHIATRY [facility] [place] [facility] Sep 19, 2023 01:30 PM AMBULATORY - PSYCHIATRY [facility] [place] [facility] Sep 25, 2023 09:00 AM AMBULATORY - PSYCHIATRY [facility] [place] [facility] Sep 30, 2023 07:00 AM AMBULATORY - PSYCHIATRY [facility] [place] [facility] Oct 02, 2023 09:00 AM AMBULATORY - PSYCHIATRY [facility] [place] [facility] Oct 09, 2023 09:00 AM AMBULATORY - PSYCHIATRY [facility] [place] [facility] Oct 16, 2023 09:00 AM AMBULATORY - PSYCHIATRY [facility] [place] [facility] Oct 23, 2023 09:00 AM AMBULATORY - PSYCHIATRY [facility] [place] [facility] Oct 28, 2023 07:00 AM AMBULATORY - PSYCHIATRY [facility] [place] [facility] Oct 28, 2023 08:00 AM AMBULATORY - NEUROLOGY [place] [facility] [place] [facility] Oct 28, 2023 09:30 AM AMBULATORY - PS[place]CHIATRY [place] [facility] [place] [facility] Social History: Smoking Status (Most current) [...] VA-TOBACCO FORMER USER [place] [facility] [place] [facility] Tobacco Use History This section includes a history of the smoking, or tobacco-related health factors, that were collected on or before the date of the Encounter. The data comes from the [place] facility where the Encounter took place. Date/Time Smoking Status/Tobacco Use Comment F acility Apr 15, 2023 07:00 AM VA-TOBACCO QUIT 15 YRS OR MORE [facility] [place] [facility] Apr 24, 2022 07:00 AM VA-TOBACCO FORMER USER [facility] [place] [facility] Apr 24, 2022 07:00 AM VA-TOBACCO QUIT 15 YRS OR MORE [facility] [place] [facility] Apr 27, 2021 03:00 PM VA-TOBACCO FORMER USER [facility] [place] [facility] Apr 27, 2021 03:00 PM VA-TOBACCO QUIT 15 YRS OR MORE [facility] [place] [facility] Mar 17, 2020 03:00 PM VA-TOBACCO FORMER USER [facility] [place] [facility] Mar 17, 2020 03:00 PM VA-TOBACCO QUIT 15 YRS OR MORE [facility] [place] [facility] Mar 31, 2019 09:04 AM VA-TOBACCO FORMER USER [facility] [place] [facility] Mar 31, 2019 09:04 AM VA-TOBACCO QUIT 15 YRS OR MORE [place] [facility] [place] [facility] Encounter Notes: All associated encounter notes This section contains the clinical notes associated to the Encounter. Date/Time Encounter Note(s) Provider Source Jun 13, 2023 07:48 AM PHYSICAL THERAPY N OTE: LOCAL TITLE: PHYSICAL THERAPY STANDARD TITLE: PHYSICAL THERAPY NOTE DATE OF NOTE: JUN 13, 2023@07:48 ENTRY DATE: JUN 13, 2023@07:48:47 AUTHOR: DANYA WELCH EXP COSIGNER: URGENCY: STATUS: COMPLETED Initial Evaluation date: Feb Treat Date: Mar Treatment #: 2 Treatment time:15min Diagnosis: Pain in left Hip(ICD-10-CM M25.552) Provider: [facility] Precautions: Patient identified by full name and date of Carlyn with patient. arrived 15 min late for appt. SUBJECTIVE: Right AFO broke while getting new toe block installed and the AFO broke they patched ([facility]) it, said need new consult to [facility] for replacement of AFO. [facility] [address] [address] The left hip has been overall pretty good. I am walking more normal. I find that when I walk I have the pain initially then pain resolves, but sit again and pain returns 4/10 average. OBJECTIVE: THERAPEUTIC EXERCISE: MINUTES:8 review of exercises discuss hip swing with hip drop for reduction of the stiffness following getting up for seated. OTHER: MINUTES:5 Lightweight AFO for R foot drop w/ fatigue [facility] [address] [address] placed consult for replacement. SELF CARE/EDUCATION: MINUTES: HEP:Access Code: [email or web address] URL: [email or web address] Date: 03/25/2023 Prepared by: Danya Welch Exercises - SI Joint Self-Correction with Dowel - 1-2 x daily - 5 sets - 5 reps - 5secs hold - Supine Hip Adduction Isometric with Ball - 1-2 x daily - 5 sets - 5 reps - 5secsecs hold - Seated Hamstring Stretch - 3 x daily - 3 sets - 30 secs hold - Hip Flexor Stretch on Step - 3 x daily - 3 sets - 30 secs hold - Supine Hip Adductor Stretch - 3 x daily - 3 sets - 30 secs hold - Supine Gluteus Stretch - 3 x daily - 3 sets - 30 secs hold - Supine Transversus Abdominis Bracing - Hands on Thighs - 5 x daily - 10 reps - 1 breath hold - Side Stepping with Resistance at Ankles - 5 reps - 10ft hold - Forward and Backward Monster Walk with Resistance at Ankles and Counter Support - 5 reps - 10ft hold - Standing Anti-Rotation Press with Anchored Resistance - 2 sets - 10 reps - 5- 10 secs hold - Single Arm Shoulder Extension with Anchored Resistance - 3 sets - 10 reps - Tandem Stance - 3 sets - 30 secs hold - Single Leg Balance with Opposite Leg Star Reach - 3 sets - 10 reps Patient education was provided for all aspects of care during this clinical encounter. ASSESSMENT: Patient returns to PT today with report of overall left hip pain has been significantly ipmroved since starting PT. The patient relayed he had an appt at [facility] where they noted the right AFO had broken, htey did a temp patch repair but suggested a replacement. [place] noted he can feel the patch on his foot creating pain point on the foor. The patient reports he is out walking much more than he was when starting PT. The patient reports meeting his personal goal with walking at this time able to walk his dog, without any sig issues. Patient making good progress towards established PT goals and feels confident in his ability to continue with HEP to get back to his PLOF. Patient being d/c from PT at this time, and may return within 30 days PRN, if greater than 30 days will require new PT consult. PLAN: [x]Continue with plan of care. [x]Pt to perform HEP as prescribed. Goals, within: []2-4 wks [x]4-6wks []8wks [x]Increase sitting/driving tolerance to 30 minutes. MET [x]Increase walking/standing tolerance to 30 minutes in order to Ambulate community distances independently with pain < 3/10. MET [x]Patient will report improved ability to Ascend/descend 1 flight of stairs independently with normal gait and no increase in pain. (avoids as doesn't need to do stairs regularly.) [x]Return to recreational dog walks upto 4miles at a time without increased pain levels.(MET) [x]Pt will increase supine 90/90 by 10-20 degrees to demonstrate increase in HS length.progress [x]Pt will decrease prone passive knee flexion restriction to demonstrate improved hip flexor/quad length to minimal restriction.progress [x]Independent with a comprehensive HEP to maintain the gains achieved in PT.MET /nicole/ DANYA WELCH PT, DPT PHYSICAL THERAPIST Signed: 06/13/2023 14:50 DANYA WELCH [facility] [place] [facility]
--- OUTSIDE RECORDS SUMMARY | 2024-05-05 07:43 | XMS_ITS | Encounter Summary ---
Author Name [facility] [place] Organization [place] Address [address] [place] [address] Care Team Providers Care Contracting Executive Name Role Phone JOSE MANUEL PITT [...] Name Patient's Relationship to Policy Burgess [facility] HEALTH PLAN MEDICARE SUPPLEMEN BETY MEDIC ARE SUPPL EMENT A Feb 18, 2022 SUPP1 [id number] [phone] GINA DE LA ROSA PATIENT [facility] MED PREFER/SEN IOR CARE MEDICARE SUPPLEMEN BETY MEDIC ARE SUPPL EMENT A Feb 18, 2021 SUPP1 [id number] GINA DE LA ROSA PATIENT Selected Encounter This section includes the information on record at [place] for the Encounter. Date/Time Encounter Type Encounter Description Reason Provider Source Nov 06, 2023 09:00 AM GROUP PSYCHOTHERAPY [facility] ICD-10-CM F43.12 Post-traumati c stress disorder, chronic MARIALUISA SALCEDO Encounter Template Text not used by [place] Assessments - Encounter Diagnoses This section includes the primary and secondary diagnoses documented for the Encounter. Date/Time Primary/Secondary Diagnosis Diagnosis Name Provider Source Nov 06, 2023 10:27 AM PRIMARY Post-traumatic stress disorder, chronic MARIALUISA SALCEDO [place] [facility] [place] [facility] Plan of Treatment: Future Appointments (+ 6 months) and Future Tests (+/- 45 days) The Plan of Treatment section includes future care activities for the patient from all [place] treatmentfacilities. This section includes future appointments and future orders which are active, pending or scheduled. Future Appointments This section includes appointments that were scheduled to occur 6 months from the date of the Encounter, up to a maximum of 20 appointments. The data comes from all [place] treatment facilities. Appointment Date/Time Appointment Type Appointme nt Facility Name Nov 13, 2023 09:00 AM AMBULATORY - PS[facility]CHIATRY [facility] [place] [facility] Nov 19, 2023 07:00 AM AMBULATORY - PSYCHIATRY [facility] [place] [facility] Nov 20, 2023 09:00 AM AMBULATORY - PSYCHIATRY [facility] [place] [facility] Nov 27, 2023 09:00 AM AMBULATORY - PSYCHIATRY [facility] [place] [facility] Dec 04, 2023 09:00 AM AMBULATORY - PSYCHIATRY [facility] [place] [facility] Dec 11, 2023 09:00 AM AMBULATORY - PSYCHIATRY [facility] [place] [facility] Dec 16, 2023 09:30 AM AMBULATORY - PSYCHIATRY [facility] [place] [facility] Dec 18, 2023 09:00 AM AMBULATORY - PSYCHIATRY [facility] [place] [facility] Dec 19, 2023 07:30 AM AMBULATORY - MEDICINE [facility] [place] [facility] Dec 23, 2023 07:00 AM AMBULATORY - PSYCHIATRY [facility] [place] [facility] Dec 25, 2023 09:00 AM AMBULATORY - PSYCHIATRY [facility] [place] [facility] Jan 01, 2024 09:00 AM AMBULATORY - PSYCHIATRY [facility] [place] [facility] Jan 08, 2024 09:00 AM AMBULATORY - PSYCHIATRY [facility] [place] [facility] Jan 09, 2024 09:30 AM AMBULATORY - MEDICINE [facility] Jan 14, 2024 07:00 AM AMBULATORY - PSYCHIATRY [facility] [place] [facility] Jan 20, 2024 08:30 AM [facility] [place] [facility] Jan 22, 2024 09:00 AM AMBULAT[facility] [place] [facility] Jan 27, 2024 01:30 PM AMBUL[facility] [place] [facility] Jan 29, 2024 09:00 AM AMBULATORY - [facility] Feb 05, 2024 09:00 AM [facility] Active, Pending, and Scheduled Orders This section includes a listing of several types of active, pending, and scheduled orders, including clinic medications orders, diagnostic test orders, procedure orders and consult orders; where the start date of the order is 45 days before the date of the Encounter or 45 days after the date of theEncounter. The data comes from all [place] treatment facilities. Test Date/Time Test Type Test Details Facility Name Oct 25, 2023 02:36 PM Consult Order COMMUNITY CARE-UROLOGY Cons Highway Design Engineer's Choice [facility] Oct 28, 2023 01:47 PM Consult Order COMMUNITY CARE-NEUROLOGY Cons Highway Design Engineer's Choice [facility] Social History: Smoking Status (Most current) and Tobacco Use (All prior to encounter date) This section includes the most current, and the historical, smoking and tobacco- related health factors from the [place] facility where the Encounter took place. Current Smoking Status This section includes the most current smoking, or tobacco-related health factor, from the [place] facility where the Encounter took place. Date/Time Current Smoking Status Comment Nurys millery Apr 15, 2023 07:00 AM [place]-TOBACCO QUIT 15 YRS OR MORE [facility] Tobacco Use History This section includes a history of the smoking, or tobacco-related health factors, that were collected on or before the date of the Encounter. The data comes from the [place] facility where the Encounter took place. Date/Time Smoking Status/Tobacco Use Comment F jodie Apr 15, 2023 07:00 AM HI-TOBACCO QUIT 15 YRS OR MORE [facility] Apr 24, 2022 07:00 AM VA-TOBACCO FORMER USER [facility] Apr 24, 2022 07:00 AM VA-TOBACCO QUIT 15 YRS OR MORE [facility] [place] [facility] Apr 27, 2021 03:00 PM VA-TOBACCO FORMER USER [facility] [place] [facility] Apr 27, 2021 03:00 PM VA-TOBACCO QUIT 15 YRS OR MORE [facility] [place] [facility] Mar 17, 2020 03:00 PM VA-TOBACCO FORMER USER [facility] [place] [facility] Mar 17, 2020 03:00 PM VA-TOBACCO QUIT 15 YRS OR MORE [facility] [place] [facility] Mar 31, 2019 09:04 AM VA-TOBACCO FORMER USER [facility] [place] [facility] Mar 31, 2019 09:04 AM VA-TOBACCO QUIT 15 YRS OR MORE [place] [facility] [place] [facility] Encounter Notes: All associated encounter notes This section contains the clinical notes associated to the Encounter. Date/Time Encounter Note(s) Provider Source Nov 06, 2023 10:16 AM SOCIAL WORK GROUP COUNSELING NOTE: LOCAL TITLE: SOCIAL WORK GROUP NOTE STANDARD TITLE: SOCIAL WORK GROUP COUNSELING NOTE DATE OF NOTE: NOV 06, 2023@10:16 ENTRY DATE: NOV 06, 2023@10:16:19 AUTHOR: MARIALUISA SALCEDO EXP COSIGNER: URGENCY: STATUS: COMPLETED iRest Group Date: 11/06/23 Time: 9 AM Number of group members: 12 Furnace Clerk: Marialuisa Salcedo, [facility] Group began with a introduction [...] theme was on intention and heartfelt desire. [place] engaged with air cargo agent and group members appropriately, participating in the meditation and reflection time. did not endorse SI/HI. [place]'s intention was to feel peaceful, calm, and more self-compassionate. DIAGNOSES: Persistent mood disorder, unspecified PTSD, chronic Cognitive Disorder (History of) Cerebral Infarction, Unspecified [facility] Video Connect (VVC) Standard Documentation VVC Clinician Resources Only: E911 (Emergency Call Relay Center): [phone] National Veterans Crisis Line - 988 then press #1. CWNehemias Suicide Coordinator [phone], Ext. [phone]; Back-up Ext. [phone] [place] Police, CLEMENTENehemias, Sange[place] [phone] Introduction: Visit is being conducted by [place] [facility]. [place] identified with 2 identifiers: [X] Full Name [X] Date of [ ] VA ID Card Emergency Plan: [place] confirmed and/or provided the following information in case of emergency or technology failure. PATIENT PHONE - PHONE NUMBER [CELLULAR] - Is patient phone number correct, if not, enter below: 's phone number: TAJ SAVANNA ESTRELLA [address], [place], [address] 's present location and address for appointment: his home [place]'s emergency contact name and phone number: E-Cont.: ESTRELLAJUVENCIO Relation Type: UNRELATED FRIEND/OTHER Relation Note: OTHERS [address] [place] [address] [facility] reported that location is private and safe: Yes Informed Consent: informed of the risks and benefits of Telehealth video care. has the right to refuse video services. If refuses video visit, a inuf-mz-wzuk visit will be scheduled. verbalized consent for this video visit: Yes [place] provided consent for any other persons present for visit: Yes If yes, who and relationship to patient:group Secure visit: Visit was locked for security and privacy:Yes /nicole/ REBECA CARABALLO Engine Pilot Signed: 11/06/2023 10:33 MARIALUISA SALCEDO [facility]
--- OUTSIDE RECORDS SUMMARY | 2024-05-05 07:43 | XMS_ITS | Encounter Summary ---
Author Name [facility] [place] [facility] [place] Organization [facility] [place] Address [address] [place] [address] Care Team Providers Care Greaser Operator Name Role Phone JOSE MANUEL PITT [...] Patient's Relationship to Policy Burgess [facility] HEALTH PLAN MEDICARE SUPPLEMEN BETY MEDIC ARE SUPPL EMENT A Feb 18, 2022 SUPP1 [id number] GINA DE LA ROSA PATIENT [facility] MED PREFER/SEN IOR CARE MEDICARE SUPPLEMEN BETY MEDIC ARE SUPPL EMENT A Feb 18, 2021 SUPP1 [id number] [phone] GINA DE LA ROSA PATIENT Selected Encounter This section includes the information on record at [place] for the Encounter. Date/Time Encounter Type Encounter Description Reason Provider Source Nov 20, 2023 09:00 AM GROUP PSYCHOTHERAPY [facility] ICD-10-CM F43.12 Post-traumati c stress disorder, chronic MARIALUISA SALCEDO Encounter Template Text not used by [place] Assessments - Encounter Diagnoses This section includes the primary and secondary diagnoses documented for the Encounter. Date/Time Primary/Secondary Diagnosis Diagnosis Name Provider Source Nov 20, 2023 10:25 AM PRIMARY Post-traumatic stress disorder, chronic MARIALUISA SALCEDO [place] [facility] [place] [facility] Plan of Treatment: Future Appointments (+ 6 months) and Future Tests (+/- 45 days) The Plan of Treatment section includes future care activities for the patient from all [place] treatmentfacilities. This section includes future appointments and future orders which are active, pending or scheduled. Future Appointments This section includes appointments that were scheduled to occur 6 months from the date of the Encounter, up to a maximum of 20 appointments. The data comes from all [place] treatment facilities. Appointment Date/Time Appointment Type Appointme nt Facility Name Nov 27, 2023 09:00 AM AMBULATORY - PS[facility]IATRY [facility] [place] [facility] Dec 04, 2023 09:00 AM AMBULATORY - PS[facility]CHIATRY [facility] [place] [facility] Dec 11, 2023 09:00 AM AMBULATORY - PS[facility]CHIATRY [facility] [place] [facility] Dec 16, 2023 09:30 AM AMBULATORY - PSYCHIATRY [facility] [place] [facility] Dec 18, 2023 09:00 AM AMBULATORY - PSYCHIATRY [facility] [place] [facility] Dec 19, 2023 07:30 AM AMBULATORY - MEDICINE [facility] [place] [facility] Dec 23, 2023 07:00 AM AMBULATORY - PSYCHIATRY [facility] [place] [facility] Dec 25, 2023 09:00 AM AMBULATORY - PSYCHIATRY [facility] [place] [facility] Jan 01, 2024 09:00 AM AMBULATORY - PSYCHIATRY [facility] [place] [facility] Jan 08, 2024 09:00 AM AMBULATORY - PSYCHIATRY [facility] [place] [facility] Jan 09, 2024 09:30 AM AMBULATORY - MEDICINE [facility] Jan 14, 2024 07:00 AM AMBULATORY - PSYCHIATRY [facility] [place] [facility] Jan 20, 2024 08:30 AM AMBULATORY - NEUROLOGY [facility] [place] [facility] Jan 22, 2024 09:00 AM AMBULATORY - PSYCHIATRY [facility] [place] [facility] Jan 27, 2024 01:30 PM AMBULATORY - PSYCHIATRY [facility] [place] [facility] Jan 29, 2024 09:00 AM [facility] [place] [facility] Feb 05, 2024 09:00 AM [facility]UL[facility] [place] [facility] Feb 10, 2024 07:00 AM [facility] [place] [facility] Feb 24, 2024 07:00 AM [facility] Mar 04, 2024 09:00 AM AMBULAT[facility] Active, Pending, and Scheduled Orders This section includes a listing of several types of active, pending, and scheduled orders, including clinic medications orders, diagnostic test orders, procedure orders and consult orders; where the start date of the order is 45 days before the date of the Encounter or 45 days after the date of theEncounter. The data comes from all [place] treatment facilities. Test Date/Time Test Type Test Details Facility Name Oct 25, 2023 02:36 PM Consult Order COMM[facility]ITY [facility]-UROLOGY Cons Hydroelectric Operator's Choice [facility] Oct 28, 2023 01:47 PM Consult Order COMM[facility]ITY [facility]-NEUROLOGY Cons Hydroelectric Operator's Choice [facility] Lab Results: +/- 30 days of the encounter This section includes the Chemistry and Hematology Lab Results on record with [place] for the patient. Radiology Reports and Pathology Reports are provided separately, in subsequent sections. Lab Results This section contains the Chemistry/Hematology Results that were resulted 30 days before or 30 daysafter the date of the Encounter. Date/Time Source Result Type Result - Unit Interpretation Reference Range Comment Dec 19, 2023 07:55 AM [facility] FOLATE (WROX) Specimen Type: SERUM No comment entered. Ordering Provider: NAV PIERRE Report Released Date/Time: Oct 28, 2023 09:59 AM Reporting Lab: [facility] [address] [facility] [address] Performing Lab: [facility] [address] [facility] [address] FOLATE (WROX) 9.07 ng/mL >5.2 Dec 19, 2023 07:55 AM [facility] TSH Specimen Type: SERUM No comment entered. Ordering Provider: NAV PIERRE Report Released Date/Time: Oct 28, 2023 09:59 AM Reporting Lab: [facility] [address] [facility] [address] Performing Lab: [facility] [address] [address] TSH 1.09 u[IU]/mL 0.35-5.00 Dec 19, 2023 07:55 AM [facility] VITAMIN B12 Specimen Type: SERUM No comment entered. Ordering Provider: NAV PIERRE Report Released Date/Time: Oct 28, 2023 09:59 AM Reporting Lab: [address] [address] Performing Lab: [address] [address] VITAMIN B12 297 pg/mL 200-900 Dec 19, 2023 07:55 AM [facility] VITAMIN D (25-OH) Specimen Type: SERUM No comment entered. Ordering Provider: NAV PIERRE Report Released Date/Time: Oct 28, 2023 09:59 AM Reporting Lab: [address] [address] Performing Lab: [address] [address] VITAMIN D (25-OH) 38 ng/mL 20-50 Dec 19, 2023 07:55 AM [facility] LIPID PANEL FASTING Specimen Type: SERUM No comment entered. Ordering Provider: NAV PIERRE Report Released Date/Time: Dec 16, 2023 09:50 AM Reporting Lab: [address] [address] Performing Lab: [address] [address] CHOLESTEROL 113 mg/dL TRIGLYCERIDE 85 mg/dL 0-150 LDL calculated 50 mg/dL 0-129 CHOL/HDL 2.5 HDL CHOLESTEROL 46 mg/dL 40-60 Dec 19, 2023 07:55 AM [facility] HEMOGLOBIN A1C PANEL Specimen Type: BLOOD [...] Dec 16, 2023 09:50 AM Reporting Lab: [address] [address] Performing Lab: [address] [address] HEMOGLOBIN A1C 5.5 4.0-5.6 Dec 19, 2023 07:55 AM [facility] BASIC METABOLIC PANEL (fasting) Specimen Type: SERUM No comment entered. Ordering Provider: NAV PIERRE Report Released Date/Time: Dec 16, 2023 09:50 AM Reporting Lab: [address] [address] Performing Lab: [address] [address] UREA NITROGEN 18 mg/dL 7-25 GLUCOSE 117 [...] and tobacco- related health factors from the [place] facility where the Encounter took place. Current Smoking Status This section includes the most current smoking, or tobacco-related health factor, from the [place] facility where the Encounter took place. Date/Time Current Smoking Status Comment Nurys ko Apr 15, 2023 07:00 AM VA-TOBACCO FORMER USER [place] [facility] [place] [facility] Tobacco Use History This section includes a history of the smoking, or tobacco-related health factors, that were collected on or before the date of the Encounter. The data comes from the [place] facility where the Encounter took place. Date/Time Smoking Status/Tobacco Use Comment F acility Apr 15, 2023 07:00 AM VA-TOBACCO QUIT 15 YRS OR MORE [facility] [place] [facility] Apr 24, 2022 07:00 AM VA-TOBACCO FORMER USER [facility] [place] [facility] Apr 24, 2022 07:00 AM VA-TOBACCO QUIT 15 YRS OR MORE [facility] [place] [facility] Apr 27, 2021 03:00 PM VA-TOBACCO FORMER USER [facility] [place] [facility] Apr 27, 2021 03:00 PM VA-TOBACCO QUIT 15 YRS OR MORE [facility] [place] [facility] Mar 17, 2020 03:00 PM VA-TOBACCO FORMER USER [facility] [place] [facility] Mar 17, 2020 03:00 PM VA-TOBACCO QUIT 15 YRS OR MORE [facility] [place] [facility] Mar 31, 2019 09:04 AM VA-TOBACCO FORMER USER [facility] [place] [facility] Mar 31, 2019 09:04 AM VA-TOBACCO QUIT 15 YRS OR MORE [place] [facility] [place] [facility] Encounter Notes: All associated encounter notes This section contains the clinical notes associated to the Encounter. Date/Time Encounter Note(s) Provider Source Nov 20, 2023 10:14 AM SOCIAL WORK GROUP COUNSELING NOTE: LOCAL TITLE: SOCIAL WORK GROUP NOTE STANDARD TITLE: SOCIAL WORK GROUP COUNSELING NOTE DATE OF NOTE: NOV 20, 2023@10:14 ENTRY DATE: NOV 20, 2023@10:14:23 AUTHOR: MARIALUISA SALCEDO EXP COSIGNER: URGENCY: STATUS: COMPLETED iRest Group Date: 11/20/23 Time: 9 AM Number of group members: 12 Evening Sitter: Marialuisa Salcedo, [facility] Group began with a introduction that [...] Today's theme was on feelings and emotions. Many people shared how they struggle with anger. engaged with measurer and group members appropriately, participating in the meditation and reflection time. did not endorse SI/HI. Dierks's intention today was to relax and feel grounded. DIAGNOSES: Persistent mood disorder, unspecified PTSD, chronic Cognitive Disorder (History of) Cerebral Infarction, Unspecified [place] [employer] Connect (VVC) Standard Documentation [facility] Clinician Resources Only: E911 (Emergency Call Relay Center): [phone] National [employer] Crisis Line - 988 then press #1. [facility] Suicide Coordinator [phone], Ext. [phone]; Back-up Ext. [phone] [place] Police, Sangeeta CAMPOS [phone] Introduction: Visit is being conducted by [place] [employer]. Dierks identified with 2 identifiers: [X] Full Name [X] Date of [ ] VA ID Card Emergency Plan: Dierks confirmed and/or provided the following information in case of emergency or technology failure. PATIENT PHONE - PHONE NUMBER [CELLULAR] - Is patient phone number correct, if not, enter below: 's phone number: TAJ SAVANNA ESTRELLA [address], [place], [address] Dierks's present location and address for appointment: his home Dierks's emergency contact name and phone number: E-Cont.: ESTRELLAJUVENCIO Relation Type: UNRELATED FRIEND/OTHER Relation Note: OTHERS [address] [place] [address] [facility] Dierks reported that location is private and safe: Yes Informed Consent: Dierks informed of the risks and benefits of Telehealth video care. has the right to refuse video services. If refuses video visit, a [id number] visit will be scheduled. verbalized consent for this video visit: Yes provided consent for any other persons present for visit: Yes If yes, who and relationship to patient:group Secure visit: Visit was locked for security and privacy:Yes /nicole/ MARIALUISA SALCEDO [facility] Clam Shucker Signed: 11/20/2023 10:26 MARIALUISA SALCEDO [facility]
--- OUTSIDE RECORDS SUMMARY | 2024-05-05 07:43 | XMS_ITS | Encounter Summary ---
Author Name [place] Address [address] [place] [address] Care Team Providers Care Depot Manager Name Role Phone JOSE MANUEL PITT [...] Burgess's Name Patient's Relationship to Policy Burgess [facility] HEALTH PLAN MEDICARE SUPPLEMEN BETY MEDIC ARE SUPPL EMENT A Feb 18, 2022 SUPP1 [id number] GINA DE LA ROSA PATIENT [facility] MED PREFER/SEN IOR CARE MEDICARE SUPPLEMEN BETY MEDIC ARE SUPPL EMENT A Feb 18, 2021 SUPP1 [id number] GINA DE LA ROSA PATIENT Selected Encounter This section includes the information on record at [place] for the Encounter. Date/Time Encounter Type Encounter Description Reason Provider Source May 13, 2023 07:00 AM PSYTX W PT 45 MINUTES [facility]ENT[facility]IC - IND ICD-10-CM F43.12 Post-traumatic stress disorder, chronic MOISES PADILLA Encounter Template Text not used by [place] Assessments - Encounter Diagnoses This section includes the primary and secondary diagnoses documented for the Encounter. Date/Time Primary/Secondary Diagnosis Diagnosis Name Provider Source May 13, 2023 07:53 AM PRIMARY Post-traumatic stress disorder, chronic MOISES PADILLA [place] [facility] [place] [facility] May 13, 2023 07:53 AM SECONDARY Cerebral infarction, unspecified MOISES PADILLA [place] [facility] [place] [facility] May 13, 2023 07:53 AM SECONDARY Persistent mood [affective] disorder, unspecified MOISES PADILLA [place] [facility] [place] [facility] May 13, 2023 07:53 AM SECONDARY Problems in relationship with spouse or partner BETHMOISES Williamson [place] [facility] [place] [facility] Plan of Treatment: Future Appointments (+ 6 months) and Future Tests (+/- 45 days) The Plan of Treatment section includes future care activities for the patient from all [place] [facility]. This section includes future appointments and future orders which are active, pending or scheduled. Future Appointments This section includes appointments that were scheduled to occur 6 months from the date of the Encounter, up to a maximum of 20 appointments. The data comes from all [place] treatment facilities. Appointment Date/Time Appointment Type Appointme nt Facility Name May 16, 2023 11:30 AM AMBULATORY - PS[place]CHIATRY [place] [facility] [place] [facility] May 23, 2023 01:30 PM AMBULATORY - PSYCHIATRY [place] [facility] [place] [facility] May 27, 2023 07:00 AM AMBULATORY - PSYCHIATRY [place] [facility] [place] [facility] Jun 10, 2023 07:00 AM AMBULATORY - PSYCHIATRY [facility] [place] [facility] Jun 13, 2023 10:30 AM AMBULATORY - REHAB MEDICIN [place] [facility] [place] [facility] July 08, 2023 07:00 AM AMBULATORY - PSYCHIATRY [facility] [place] [facility] Jul 22, 2023 07:00 AM AMBULATORY - PSYCHIATRY [facility] [place] [facility] Jul 22, 2023 08:00 AM AMBULATORY - NEUROLOGY [place] [facility] [place] [facility] Jul 25, 2023 01:30 PM AMBULATORY - PSYCHIATRY [facility] [place] [facility] Jul 29, 2023 07:00 AM AMBULATORY - PSYCHIATRY [place] [facility] [place] [facility] Jul 29, 2023 08:30 AM AMBULATORY - MEDICINE [facility] [place] [facility] Aug 21, 2023 10:00 AM AMBULATORY - MEDICINE [place] Sep 02, 2023 07:00 AM AMBULATORY - PSYCHIATRY [facility] [place] [facility] Sep 09, 2023 05:00 PM AMBULATORY - PSYCHIATRY [facility] [place] [facility] Sep 11, 2023 09:00 AM AMBULATORY - PSYCHIATRY [facility] [place] [facility] Sep 19, 2023 01:30 PM AMBULATORY - PSYCHIATRY [facility] [place] [facility] Sep 25, 2023 09:00 AM AMBULATORY - PSYCHIATRY [facility] [place] [facility] Sep 30, 2023 07:00 AM AMBULATORY - PSYCHIATRY [facility] [place] [facility] Oct 02, 2023 09:00 AM AMBULATORY - PSYCHIATRY [facility] [place] [facility] Oct 09, 2023 09:00 AM AMBULATORY - PS[place]CHIATRY [place] [facility] [place] [facility] Social History: Smoking Status (Most current) and Tobacco Use (All prior to encounter date) This section includes the most current, and the historical, smoking and tobacco- related health factors from the [place] facility where the Encounter took place. Current Smoking Status This section includes the most current smoking, or tobacco-related health factor, from the [place] facility where the Encounter took place. Date/Time Current Smoking Status Comment Nurys ity Apr 15, 2023 07:00 AM VA-TOBACCO QUIT [facility]RS [facility] Tobacco Use History This section includes a history of the smoking, or tobacco-related health factors, that were collected on or before the date of the Encounter. The data comes from the [place] facility where the Encounter took place. Date/Time Smoking Status/Tobacco Use Comment F acility Apr 15, 2023 07:00 AM VA-TOBACCO QUIT 15 YRS OR MORE [facility] [place] [facility] Apr 24, 2022 07:00 AM VA-TOBACCO FORMER USER [facility] [place] [facility] Apr 24, 2022 07:00 AM VA-TOBACCO QUIT 15 YRS OR MORE [place] [facility] [place] [facility] Apr 27, 2021 03:00 PM VA-TOBACCO FORMER USER [place] [facility] [place] [facility] Apr 27, 2021 03:00 PM VA-TOBACCO QUIT 15 YRS OR MORE [facility] [place] [facility] Mar 17, 2020 03:00 PM VA-TOBACCO FORMER USER [facility] [place] [facility] Mar 17, 2020 03:00 PM VA-TOBACCO QUIT 15 YRS OR MORE [facility] [place] [facility] Mar 31, 2019 09:04 AM VA-TOBACCO FORMER USER [facility] [place] [facility] Mar 31, 2019 09:04 AM VA-TOBACCO QUIT 15 YRS OR MORE [place] [facility] [place] [facility] Encounter Notes: All associated encounter notes This section contains the clinical notes associated to the Encounter. Date/Time Encounter Note(s) Provider Source May 13, 2023 06:50 AM PSYCHOLOGY NOTE: LOCAL TITLE: PSYCHOLOGY NOTE STANDARD TITLE: PSYCHOLOGY NOTE DATE OF NOTE: MAY 13, 2023@06:50 ENTRY DATE: MAY 13, 2023@06:51 AUTHOR: MOISES PADILLA COSIGNER: URGENCY: STATUS: COMPLETED VISIT DURATION 45 minutes DIAGNOSES: Persistent mood disorder, unspecified PTSD, chronic Relationship Distress w/ spouse (History of) Cerebral Infarction, Unspecified PRESENTING PROBLEMS: Festus presented on time and re-engaged in treatment as usual. He was found in waiting room in middle of disagreement with Carlyn. The session was largely spent focusing on this ongoing discord. SESSION FOCUS: Festus was upset about a recent argument with Carlyn, which was based on the ongoing discord related to his family. Festus shared that when Carlyn returned from her trip (help with affairs of friend), they attended a family democrat which resulted in more anger from her. Carlyn appears to experience his communication with his family as a sign of disrespect/disloyalty to their marriage and Festus continues to push back and assert that he can communicate with them. Festus's tendency to not consider how certain actions could anger her and to be too direct clashes with her approach. Assertive communication training was done, including how he can consider her possible feelings of being lonely or anxious. The important role of couple's therapy was again emphasized but Festus reported that she would decline. Instead he is hopeful that she will begin her own therapy very soon, as it was reportedly just scheduled. ASSESSMENT: BRIEF ASSESSMENT OF MENTAL STATUS: 1. [...] /es/ Moises Padilla PsyD Staff Psychologist Signed: 05/13/2023 07:54 MO[facility]ES [facility]ADILLA [facility]
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
--- OUTSIDE RECORDS SUMMARY | 2024-05-05 07:44 | XMS_ITS ---
Author Name [facility] [facility] [place] [facility] [place] Address [address] [place] [address] Care Team Providers Care Skate Boarder Name Role Phone JOSE MANUEL PITT Primary [...] Burgess's Name Patient's Relationship to Policy Burgess [facility] PLAN MEDICARE SUPPLEMEN BETY MEDIC ARE SUPPL EMENT A Feb 18, 2022 SUPP1 [id number] GINA DE LA ROSA PATIENT [employer] PREFER/SEN IOR CARE MEDICARE SUPPLEMEN BETY MEDIC ARE SUPPL EMENT A Feb 18, 2021 SUPP1 [id number] [phone] GINA DE LA ROSA PATIENT Selected Encounter This section includes the information on record at [place] for the Encounter. Date/Time Encounter Type Encounter Description Reason Provider Source Dec 16, 2023 09:30 AM OFFICE O/P EST MOD 30 MIN [facility] - IND ICD-10-CM F34.9 Persistent mood [affective] disorder, unspecified NAV PIERRE Encounter Template Text not used by [place] Assessments - Encounter Diagnoses This section includes the primary and secondary diagnoses documented for the Encounter. Date/Time Primary/Secondary Diagnosis Diagnosis Name Provider Source Dec 16, 2023 11:52 AM PRIMARY Persistent mood [affective] disorder, unspecified LACHELLE PIERREGUY Teri Rocio [facility] [place] [facility] Dec 16, 2023 11:52 AM SECONDARY Post-traumatic stress disorder, chronic LACHELLE PIERREGUY Chan [facility] [place] [facility] Plan of Treatment: Future Appointments (+ 6 months) and Future Tests (+/- 45 days) The Plan of Treatment section includes future care activities for the patient from all [place] [facility]. This section includes future appointments and future orders which are active, pending or scheduled. Future Appointments This section includes appointments that were scheduled to occur 6 months from the date of the Encounter, up to a maximum of 20 appointments. The data comes from all [place] treatment facilities. Appointment Date/Time Appointment Type Appointme nt Facility Name Dec 18, 2023 09:00 AM AMBULATORY - PSYCHIATRY [facility] [place] [facility] Dec 19, 2023 07:30 AM AMBULATORY - MEDICINE [facility] [place] [facility] Dec 23, 2023 07:00 AM AMBULATORY - PSYCHIATRY [facility] [place] [facility] Dec 25, 2023 09:00 AM AMBULATORY - PSYCHIATRY [facility] [place] [facility] Jan 01, 2024 09:00 AM AMBULATORY - PSYCHIATRY [facility] [place] [facility] Jan 08, 2024 09:00 AM AMBULATORY - PSYCHIATRY [facility] [place] [facility] Jan 09, 2024 09:30 AM AMBULATORY - MEDICINE [facility] Jan 14, 2024 07:00 AM AMBULATORY - PSYCHIATRY [facility] [place] [facility] Jan 20, 2024 08:30 AM AMBULATORY - NEUROLOGY [facility] [place] [facility] Jan 22, 2024 09:00 AM AMBULATORY - PSYCHIATRY [facility] [place] [facility] Jan 27, 2024 01:30 PM AMBULATORY - PSYCHIATRY [facility] [place] [facility] Jan 29, 2024 09:00 AM AMBULATORY - PSYCHIATRY [facility] [place] [facility] Feb 05, 2024 09:00 AM [facility]BULAT[facility] [place] [facility] Feb 10, 2024 07:00 AM AMBULATORY - [...] - PSYCHIATRY [facility] [place] [facility] Lab Results: +/- 30 days of the [...] Range Comment Dec 19, 2023 07:55 [facility] [place] [facility] FOLATE (WROX) Specimen Type: SERUM No comment entered. Ordering Provider: NAV PIERRE Report Released Date/Time: Oct 28, 2023 09:59 AM Reporting Lab: [facility] [place] [facility] [address] [address] Performing Lab: [facility] [place] [facility] [address] [facility] [address] FOLATE (WROX) 9.07 ng/mL >5.2 Dec 19, 2023 07:55 AM [facility] TSH Specimen Type: SERUM No comment entered. Ordering Provider: NAV PIERRE Report Released Date/Time: Oct 28, 2023 09:59 AM Reporting Lab: [facility] [place] [facility] [address] [address] Performing Lab: [facility] [place] [facility] [address] [address] TSH 1.09 u[IU]/mL 0.35-5.00 Dec 19, 2023 07:55 AM [facility] VITAMIN B12 Specimen Type: SERUM No comment entered. Ordering Provider: NAV PIERRE Report Released Date/Time: Oct 28, 2023 09:59 AM Reporting Lab: [address] [address] Performing Lab: [address] [address] VITAMIN B12 297 pg/mL 200-900 Dec 19, 2023 07:55 AM [facility] VITAMIN D (25-OH) Specimen Type: SERUM No comment entered. Ordering Provider: NAV PIERRE Report Released Date/Time: Oct 28, 2023 09:59 AM Reporting Lab: [address] [address] Performing Lab: [address] [address] VITAMIN D (25-OH) 38 ng/mL 20-50 Dec 19, 2023 07:55 AM [facility] LIPID PANEL FASTING Specimen Type: SERUM No comment entered. Ordering Provider: NAV PIERRE Report Released Date/Time: Dec 16, 2023 09:50 AM Reporting Lab: [address] [address] Performing Lab: [address] [address] CHOLESTEROL 113 mg/dL TRIGLYCERIDE 85 mg/dL 0-150 LDL calculated 50 mg/dL 0-129 CHOL/HDL 2.5 HDL CHOLESTEROL 46 mg/dL 40-60 Dec 19, 2023 07:55 AM [facility] HEMOGLOBIN A1C PANEL Specimen Type: BLOOD [...] Dec 16, 2023 09:50 AM Reporting Lab: [address] [address] Performing Lab: [address] [address] HEMOGLOBIN A1C 5.5 4.0-5.6 Dec 19, 2023 07:55 AM [facility] BASIC METABOLIC PANEL (fasting) Specimen Type: SERUM No comment entered. Ordering Provider: NAV PIERRE Report Released Date/Time: Dec 16, 2023 09:50 AM Reporting Lab: [address] [address] Performing Lab: [address] [address] UREA NITROGEN 18 mg/dL 7-25 GLUCOSE 117 [...] and tobacco- related health factors from the [place] facility where the Encounter took place. Current Smoking Status This section includes the most current smoking, or tobacco-related health factor, from the [place] facility where the Encounter took place. Date/Time Current Smoking Status Comment Facil ity Apr 15, 2023 07:00 AM AR-TOBACCO QUIT 15 YRS OR MORE [facility] Tobacco Use History This section includes a history of the smoking, or tobacco-related health factors, that were collected on or before the date of the Encounter. The data comes from the [place] facility where the Encounter took place. Date/Time Smoking Status/Tobacco Use Comment F acility Apr 15, 2023 07:00 AM AR-TOBACCO QUIT 15 YRS OR MORE [facility] [place] [facility] Apr 24, 2022 07:00 AM VA-TOBACCO FORMER USER [facility] [place] [facility] Apr 24, 2022 07:00 AM VA-TOBACCO QUIT 15 YRS OR MORE [facility] [place] [facility] Apr 27, 2021 03:00 PM VA-TOBACCO FORMER USER [facility] [place] [facility] Apr 27, 2021 03:00 PM VA-TOBACCO QUIT 15 YRS OR MORE [facility] [place] [facility] Mar 17, 2020 03:00 PM VA-TOBACCO FORMER USER [facility] [place] [facility] Mar 17, 2020 03:00 PM VA-TOBACCO QUIT 15 YRS OR MORE [facility] [place] [facility] Mar 31, 2019 09:04 AM VA-TOBACCO FORMER USER [facility] [place] [facility] Mar 31, 2019 09:04 AM VA-TOBACCO QUIT 15 YRS OR MORE [facility] [place] [facility] Encounter Notes: All associated encounter notes This section contains the clinical notes associated to the Encounter. Date/Time Encounter Note(s) Provider Source Dec 16, 2023 09:37 AM PSYCHIATRY NOTE: LOCAL TITLE: PSYCHIATRY NOTE STANDARD TITLE: PSYCHIATRY NOTE DATE OF NOTE: DEC 16, 2023@09:37 ENTRY DATE: DEC 16, 2023@09:37:40 AUTHOR: SALLY PIERRE COSIGNER: URGENCY: STATUS: COMPLETED PSYCHIATRY FOLLOW UP VISIT TAJ DE LA ROSA is a 68yo MARITAL STATUS - WHITE MALE with a history of [employer] FROM Nov TO Nov INTERVAL HISTORY Notes an improvement in focus and ability to plan and prioritize, working on one project at a time with the addition of armodafinil 100mg qam. Is also sleeping 7-8 hours. 8pm-5am. notices he is better able to sustain a conversation, and can sit through movies. Waiting on community care for neuro. Botox works for 6 weeks. BP has been ok--he is in a monitoring program with PCP and gets daily readings. (130's/70) average, not changed since starting armodafinil. CURRENT MEDICATIONS Active Outpatient Medications (including Supplies): AMMONIUM LACTATE 12% LOTION APPLY SMALL AMOUNT TOPICALLY ACTIVE AT BEDTIME FOR DRY IRRITATED SKIN UNDER OCCLUSION ARMODAFINIL 50MG TAB TAKE TWO TABLETS BY MOUTH EVERY ACTIVE MORNING TO IMPROVE WAKEFULNESS BREXPIPRAZOLE 2MG TAB TAKE ONE TABLET BY MOUTH ONCE DAILY ACTIVE FOR MOOD DOSE INCREASE CLONIDINE HCL 0.1MG TAB TAKE ONE TABLET BY MOUTH AT ACTIVE BEDTIME FOR INSOMNIA LIDOCAINE 5% PATCH APPLY 1 PATCH TOPICALLY EVERY 12 HOURS ACTIVE NEEDED FOR NERVE PAIN (LEAVE PATCH ON FOR 12 HOURS, THEN REMOVE PATCH) MIRABEGRON 25MG SA TAB TAKE ONE TABLET [...] CARRILLO Y Polyneuropathy G62.9 03/23/2020 MIGUEL CARRILLO Posttraumatic stress disorder F43.1 08/07/2019 VANESSA,CATRACHITA R Conversion disorder R69. 04/19/2019 KIRK COTTRELL Hypertension [...] r/r/r/v/p. Not pressured, loud, or fast. Mood good euthymic Affect: reactive Thought Process Linear, logical, [...] suicide attempt in 2005 and hospitalization at [facility] (overdose on morphine), also with an [...] dose of trazodone, but continued to have skin washer awakening which resolved with addition of clonidine at bedtime. Other pertinent medical hx includes CAD, s/p ND, s/p stents. Poorly controlled DM. Neuropathy, chronic [...] only appeared after the functional strokes. PLAN -Reduce brexpiprazole to 1 mg daily. Monitor TD symptoms--Left Foot. -neuro consult--follow up with imaging, migraines, possible TD -labs--TSH, B12, folate, Vit D3. Will add labs for SAG--lipids, HgA1c. -continue armodafinil 100mg, target mood and cognition. -continue trazodone 200 [...] of active outpatient prescriptions dispensed from this AR (local) and dispensed from another AR or [facility] facility (remote) as well as inpatient [...] and updated. /nicole/ SALLY PIERRE PSYCHIATRIST Signed: 12/16/2023 11:53 SALLY PIERRE [facility]
--- OUTSIDE RECORDS SUMMARY | 2024-05-05 07:44 | XMS_ITS ---
Author Organization [facility] Address [address] [place] [address] Care Team Providers Care Pathology Secretary Name Role Phone AMY BENEDICT D.O Primary Care Provider Kristine vailable Gilbert Mccloud Unavailable [phone] Allergies Allergen (clinical drug ingredient) Drug/Non Drug Allergy documented on EMR Reaction Allergy Type Onset Date Status metformin Metformin HCl kidney failure Drug Allergy Active Results Component Value Reference Range Notes US abdomen limited Reviewed date:04/01/2023 07:16:02 AM Interpretation: Performing Lab: Notes/Report: [facility] [address] [place] [address] Ultrasound Report Signed Patient: Taj Cisneros Sr MR#: [id number] : 1955 Acct:[id number] Age/Sex: 67 / M ADM Date: 02/13/23 Loc: [facility] Dr: Gilbert Mccloud MD Ordering Physician: Gilbert Mccloud Date of Service: 02/13/23 Procedure(s): US abdomen limited Accession Number(s): [id number] cc: Amy Benedict DO; Gilbert Mccloud EXAMINATION: [...] in OV> 02/19/23 1115 DD/ 1013 TD/TT: Director Orange: [facility] [address] [place] [address] [place] [address] Ultrasound Report Signed Patient: Angelica Cisneros Sr MR#: [id number] : 1955 Acct:[id number] Age/Sex: 67 / M ADM Date: 02/13/23 Loc: [facility] Attending Dr: Gilbert Mccloud MD Ordering Physician: Gilbert Mccloud Date of Service: 02/13/23 Procedure(s): US abd omen limited Accession Number(s): [id number] cc: Shoaib Benedict DO; Gilbert Mccloud EXAMINATION: [...] in OV> 02/19/23 1115 DD/ 1013 TD/TT: Director Orange: REASON FOR VISIT Patient presents today for abd pain Medications Medication SIG (Take, Route, Frequency, Duration) Notes Start Date End Date Status Dicyclomine HCl 10 MG 1-2 capsules Orally Four times a day prn abdominal cramps/discomfort for 30 day(s) 08/10/2018 Not-Taking Pantoprazole Sodium 40 MG 1 tablet Orally Once a day Not-Taking Newcomb 3 1200 MG 1 capsule Orally Once [...] 02/12/2023 Encounters Encounter Location Date Provider Diagnosis [facility] [address] [place] [address] 02/12/2023 Gilbert Mccloud Upper abdominal pain R10.10 [...] * TAJ CISNEROS SrDOB:1955 (67 yo M)Acc No.[id number]:02/12/2023 Progress Notes Patient:?TAJ CISNEROS Provider:?Gilbert Mccloud MD :1955???Age:67 Y???Sex:Male Clifford e:02/12/2023 Address:[address] [place], [place] [id number] Pcp:AMY BENEDICT D.O Subjective: * Chief Complaints: [...] Bowel obstruction 08/2013--treated with laprascopic surgery at [facility] Thumb repair-left Laprascopic Gastric bypass at [facility] 2012--lost 130# Panniculectomy 2018 * [...] Losartan Potassium 100 MG Tablet Oral Not-Taking/PRNGlucose Newcomb 3 1200 MG Capsule 1 capsule Orally Once a dayMiraLax - Packet 1 packet mixed with 8 ounces of fluid Orally Once a dayDicyclomine HCl 10 MG Capsule 1-2 capsules Orally Four times a day prn abdominal cramps/discomfortPantoprazole Sodium 40 MG Tablet Delayed Release 1 tablet Orally Once a dayNot-Taking/PRN Glucose Not-Taking/PRN Newcomb 3 1200 MG Capsule 1 capsule Orally [...] Procedure Codes:?3017F COLOR ECTAL CA SCREEN DOC [id number] TOBACCO [id number] BP SCR NOT PRFRM REC REASON NOS * Preventive Medicine:? ??Counseling:?Care goal follow-up plan:?Above Normal BMI Follow-up?Giving encouragement to exercise,?BMI management provided?Yes.? * Follow Up:?prn * * Sign off status: Completed true * Provider:?Gilbert Mccloud MD Date:? 023 Generated for Leonard sarabia/Edgard/Philitting on:?05/05/2024 07:43 AM EDT History and Physical Notes * [...]
--- OUTSIDE RECORDS SUMMARY | 2024-05-05 07:44 | XMS_ITS | Encounter Summary ---
Author Name [facility] [place] [facility] [place] Address [address] [place] [address] Care Team Providers Care Structural Test Engineer Name Role Phone JOSE MANUEL PITT [...] Burgess's Name Patient's Relationship to Policy Burgess [facility] PLAN MEDICARE SUPPLEMEN BETY MEDIC ARE SUPPL EMENT A Feb 18, 2022 SUPP1 [id number] [phone] GINA DE LA ROSA PATIENT [facility] MED PREFER/SEN IOR CARE MEDICARE SUPPLEMEN BETY MEDIC ARE SUPPL EMENT A Feb 18, 2021 SUPP1 [id number] [phone] GINA DE LA ROSA PATIENT Selected Encounter This section includes the information on record at [place] for the Encounter. Date/Time Encounter Type Encounter Description Reason Provider Source Apr 08, 2024 09:00 AM STRESS MGMT CLASS [facility] ICD-10-CM F43.12 Post-traumatic stress disorder, chronic MARIALUISA SALCEDO Encounter Template Text not used by [place] Assessments - Encounter Diagnoses This section includes the primary and secondary diagnoses documented for the Encounter. Date/Time Primary/Secondary Diagnosis Diagnosis Name Provider Source Apr 08, 2024 10:21 AM PRIMARY Post-traumatic stress disorder, chronic MARIALUISA SALCEDO [facility] [place] [facility] Plan of Treatment: Future Appointments (+ [...] Appointment Type Appointme nt Facility Name Apr 13, 2024 07:00 AM AMBULATORY - PSYCHIATRY [facility] [place] [facility] Apr 15, 2024 09:00 AM AMBULATORY - PSYCHIATRY [facility] [place] [facility] Apr 20, 2024 09:00 AM AMBULATORY - NEUROLOGY [facility] [place] [facility] Apr 22, 2024 09:00 AM AMBULATORY - PSYCHIATRY [facility] [place] [facility] Apr 29, 2024 09:00 AM AMBULATORY - PSYCHIATRY [facility] [place] [facility] May 04, 2024 07:00 AM AMBULATORY - PSYCHIATRY [facility] [place] [facility] May 04, 2024 10:15 AM AMBULATORY - MEDICINE [facility] [place] [facility] May 06, 2024 09:00 AM AMBULATORY - PSYCHIATRY [facility] [place] [facility] May 13, 2024 09:00 AM AMBULATORY - PSYCHIATRY [facility] [place] [facility] May 14, 2024 09:30 AM AMBULATORY - MEDICINE [facility] May 20, 2024 09:00 AM AMBULATORY - PSYCHIATRY [facility] [place] [facility] May 21, 2024 02:00 PM AMBULATORY - MEDICINE [facility] [place] [facility] May 25, 2024 07:00 AM AMBULATORY - PSYCHIATRY [facility] [place] [facility] May 27, 2024 09:00 AM AMBULATORY - PSYCHIATRY [facility] [place] [facility] Jun 01, 2024 01:00 PM AMBULATORY - PSYCHIATRY [facility] [place] [facility] Jun 03, 2024 09:00 AM AMBULATORY - PSYCHIATRY [facility] [place] [facility] Jun 09, 2024 07:00 AM AMBULATORY - PSYCHIATRY [facility] [place] [facility] Jun 10, 2024 09:00 AM AMBULATORY - PSYCHIATRY [facility] [place] [facility] June 22, 2024 07:00 AM [facility] [place] [facility] July 06, 2024 07:00 AM [facility]ULAT[facility] Active, Pending, and Scheduled Orders This section [...] 27, 2024 12:00 AM Laboratory - Chemi nasriny Order OCCULT BLOOD FIT X1 SCREEN (MFP ONLY) STOOL FECES SP [facility] Social History: Smoking Status (Most current) [...] AM VA-TOBACCO USE FOR TYRONE OTHER TYPE [facility] Tobacco Use History This section includes a history of the smoking, or tobacco-related health factors, that were collected on or before the date of the Encounter. The data comes from the [place] facility where the Encounter took place. Date/Time Smoking Status/Tobacco Use Comment F acility Mar 30, 2024 07:00 AM VA-TOBACCO USE FOR TYRONE OTHER TYPE [facility] [place] [facility] Apr 15, 2023 07:00 AM VA-TOBACCO FOR[facility]ER [facility] Apr 15, 2023 07:00 AM VA-TOBACCO QUIT 15 YRS OR MORE [facility] [place] [facility] Apr 24, 2022 07:00 AM VA-TOBACCO FORMER USER [facility] [place] [facility] Apr 24, 2022 07:00 AM VA-TOBACCO QUIT 15 YRS OR MORE [facility] [place] [facility] Apr 27, 2021 03:00 PM VA-TOBACCO FORMER USER [facility] [place] [facility] Apr 27, 2021 03:00 PM VA-TOBACCO QUIT 15 YRS OR MORE [facility] [place] [facility] Mar 17, 2020 03:00 PM VA-TOBACCO FORMER USER [facility] [place] [facility] Mar 17, 2020 03:00 PM VA-TOBACCO QUIT 15 YRS OR MORE [facility] [place] [facility] Mar 31, 2019 09:04 AM VA-TOBACCO FORMER USER [facility] [place] [facility] Mar 31, 2019 09:04 AM VA-TOBACCO QUIT 15 YRS OR MORE [facility] [place] [facility] Encounter Notes: All associated encounter notes This section contains the clinical notes associated to the Encounter. Date/Time Encounter Note(s) Provider Source Apr 08, 2024 10:10 AM SOCIAL WORK GROUP COUNSELING NOTE: LOCAL TITLE: SOCIAL WORK GROUP NOTE STANDARD TITLE: SOCIAL WORK GROUP COUNSELING NOTE DATE OF NOTE: APR 08, 2024@10:10 ENTRY DATE: APR 08, 2024@10:10:11 AUTHOR: MARIALUISA SALCEDO EXP COSIGNER: URGENCY: STATUS: COMPLETED iRest Group Date: 04/08/24 Time: 9 AM Number of group members: 15 Tub Puller: Marialuisa Salcedo, [facility] Group began with a introduction that [...] and thoughts. Today's theme was on milind. [place]land engaged with drafter plumbing and group members appropriately, participating in the meditation and reflection time. did not endorse SI/HI. 's intention was to relax and experience milind. DIAGNOSES: Persistent mood disorder, unspecified PTSD, chronic Cognitive Disorder (History of) Cerebral Infarction, Unspecified VA Video Connect (VVC) Standard Documentation VVC Clinician Resources Only: E911 (Emergency Call Relay Center): [phone] National Veterans Crisis Line - 988 then press #1. CW Suicide Coordinator [phone], Ext. [phone]; Back-up Ext. [phone] [place] Police, [place], [place]ange[place] [phone] Introduction: Visit is being conducted by [place] [employer] Connect. identified with 2 identifiers: [X] Full Name [X] Date of [ ] VA ID Card Emergency Plan: confirmed and/or provided the following information in case of emergency or technology failure. PATIENT PHONE - PHONE NUMBER [CELLULAR] - Is patient phone number correct, if not, enter below: 's phone number: TAJ DE LA ROSA [address], [place], [address] 's present location and address for appointment: his home [place]'s emergency contact name and phone number: E-Cont.: ESTRELLAJUVENCIO Relation Type: UNRELATED FRIEND/OTHER Relation Note: OTHERS [address] [place] [address] [facility] reported that location is private and safe: Yes Informed Consent: [place] informed of the risks and benefits of Telehealth video care. has the right to refuse video services. If refuses video visit, a [id number] visit will be scheduled. verbalized consent for this video visit: Yes provided consent for any other persons present for visit: Yes If yes, who and relationship to patient:group Secure visit: Visit was locked for security and privacy:Yes /nicole/ REBECA CARABALLO Senior Business Objects Developer Signed: 04/08/2024 10:22 MARIALUISA SALCEDO [place] [facility]
--- OUTSIDE RECORDS SUMMARY | 2024-05-05 07:44 | XMS_ITS | Encounter Summary ---
Author Name [facility] [place] Organization [facility] [place] Address [address] [place] [address] Care Team Providers Care Shrimp Cleaner Name Role Phone JOSE MANUEL PITT Primary [...] Burgess's Name Patient's Relationship to Policy Burgess [facility] PLAN MEDICARE SUPPLEMEN BETY MEDIC ARE SUPPL EMENT A Feb 18, 2022 SUPP1 [id number] GINA DE LA ROSA PATIENT [facility] MED PREFER/SEN IOR CARE MEDICARE SUPPLEMEN BETY MEDIC ARE SUPPL EMENT A Feb 18, 2021 SUPP1 [id number] GINA DE LA ROSA PATIENT Selected Encounter This section includes the information on record at [place] for the Encounter. Date/Time Encounter Type Encounter Description Reason Pro vider Source IHE Encounter Template Text not used by [place]
--- OUTSIDE RECORDS SUMMARY | 2024-05-05 07:44 | XMS_ITS | Encounter Summary ---
Author Name [facility] [place] Address [address] [place] [address] Care Team Providers Care Tank Charger Name Role Phone JOSE MANUEL PITT Primary [...] Burgess's Name Patient's Relationship to Policy Burgess [facility] HEALTH PLAN MEDICARE SUPPLEMEN BETY MEDIC ARE SUPPL EMENT A Feb 18, 2022 SUPP1 [id number] [phone] GINA DE LA ROSA PATIENT [facility] MED PREFER/SEN IOR CARE MEDICARE SUPPLEMEN BETY MEDIC ARE SUPPL EMENT A Feb 18, 2021 SUPP1 [id number] GINA DE LA ROSA PATIENT Selected Encounter This section includes the information on record at [place] for the Encounter. Date/Time Encounter Type Encounter Description Reason Provider Source Aug 21, 2023 10:00 AM OFFICE O/P NEW LOW 30 MIN PODIATRY ICD-10-CM L60.3 Nail dystrophy ASHLEIGH QUINTEROS Encounter Template Text not used by [facility] Assessments - Encounter Diagnoses This section includes the primary and secondary diagnoses documented for the Encounter. 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 This section includes future appointments and future orders which are active, pending or scheduled. Future Appointments This section includes appointments that were scheduled to occur 6 months from the date of the Encounter, up to a maximum of 20 appointments. The data comes from all [place] treatment facilities. Appointment Date/Time Appointment Type Appointme nt Facility Name Sep 02, 2023 07:00 AM AMBULATORY [facility] [place] [facility] Sep 09, 2023 05:00 PM AMBULATORY - PS[facility]IATRY [facility] [place] [facility] Sep 11, 2023 09:00 AM AMBULATORY - [facility]IATRY [facility] [place] [facility] Sep 19, 2023 01:30 PM AMBULATORY - PS[facility]IATRY [facility] [place] [facility] Sep 25, 2023 09:00 AM AMBULATORY - [facility]IATRY [facility] [place] [facility] Sep 30, 2023 07:00 AM AMBULATORY - [facility]IATRY [facility] [place] [facility] Oct 02, 2023 09:00 AM AMBULATORY - [facility]IATRY [facility] [place] [facility] Oct 09, 2023 09:00 AM AMBULATORY - [facility]IATRY [facility] [place] [facility] Oct 16, 2023 09:00 AM AMBULATORY - [facility]IATRY [facility] [place] [facility] Oct 23, 2023 09:00 AM AMBULATORY - [facility]CHIATRY [facility] [place] [facility] Oct 28, 2023 07:00 AM AMBULATORY - [facility]CHIATRY [facility] [place] [facility] Oct 28, 2023 08:00 AM AMBULATORY - NEUROLOGY [facility] [place] [facility] Oct 28, 2023 09:30 AM AMBULATORY - PS[facility]CHIATRY [facility] [place] [facility] Oct 30, 2023 09:00 AM AMBULATORY - [place]IATRY [place] [facility] [place] [facility] Nov 06, 2023 09:00 AM AMBULATORY - [facility]IATRY [facility] [place] [facility] Nov 13, 2023 09:00 AM AMBULATORY - PS[place]CHIATRY [facility] [place] [facility] Nov 19, 2023 07:00 AM AMBULATORY - PS[place]CHIATRY [facility] [place] [facility] Nov 20, 2023 09:00 AM AMBULATORY - PS[place]CHIATRY [facility] [place] [facility] Nov 27, 2023 09:00 AM AMBULATORY - PS[place]CHIATRY [facility] [place] [facility] Dec 04, 2023 09:00 AM AMBULATORY - PS[place]CHIATRY [place] [facility] [place] [facility] Encounter Notes: All associated encounter notes This section contains the clinical notes associated to the Encounter. Date/Time Encounter Note(s) Provider Source Aug 21, 2023 07:21 AM PODIATRY CONSULT: [facility] TITLE: CONSULT REPORT/PODIATRY STANDARD TITLE: PODIATRY CONSULT DATE OF NOTE: AUG 21, 2023@07:21 ENTRY DATE: AUG 21, 2023@07:21:55 AUTHOR: ASHLEIGH QUINTEROS COSIGNER: URGENCY: STATUS: COMPLETED NAME: TAJ DE LA ROSA DATE: AUG 21, 2023 : Oct PCP: JOSE MANUEL PITT LAST SEEN: INITIAL CONSULT VISIT TODAY HPI: Pt. is a 67 yo alert [facility] M[facility] who presents for initial podiatric examination with Dr. Quinteros for treatment of a presenting complaint of [...] AMPUTATED Onset of symptoms has been several months due to this being a recurrent condition that has been exacerbating over the past few weeks. Duration of symptoms is daily with periods of exacerbation and remission. Description of symptoms is of a PRESENCE THAT NEEDS PROFESSIONAL CARE DUE TO PREVIOUS AMPUTATIONS IN THE PRESENCE OF PVD & NEUROPATHY BILATERAL. Contributing factors are: shoes and increased activity. Previous treatment: 4 YEARS AGO OUTSIDE PODIATRY PMH: Active problems - Computerized Problem List [...] surgery 16. Under care of multiple providers *NOTE: REVIEWED ABOVE, NOTING NON-CONTRIBUTORY TO THE CC OTHER THAN THE PRESENCE OF TYPE II DM AND POLYNEUROPATHY WITH AMPUTATIONS OF TOES Family History: Non-contributory Social History: N/A Current medications: Active Outpatient Medications (including Supplies): *NOTE: DENIES ANY RECENT CHANGES IN MEDS UPON QUESTIONING TODAY-SEE RECONCILIATION PERFOMED THIS DATE BELOW TOBACCO USE = NONE Active Outpatient Medications Status = 1) BREXPIPRAZOLE 1MG TAB TAKE ONE TABLET BY MOUTH ONCE ACTIVE DAILY FOR MOOD 2) CLONIDINE HCL 0.1MG TAB TAKE ONE TABLET BY MOUTH AT ACTIVE BEDTIME FOR INSOMNIA 3) LIDOCAINE 5% PATCH APPLY 1 PATCH TOPICALLY EVERY 12 ACTIVE HOURS NEEDED FOR NERVE PAIN (LEAVE PATCH ON FOR 12 HOURS, THEN REMOVE PATCH) 4) ONABOTULINUMTOXINA 200 UNIT/FRANCISCO J INJ INJECT HOLD DIRECTED INTRAMUSCULARLY EVERY THREE MONTHS FOR MIGRAINE HEADACHES 5) TRAZODONE HCL 100MG TAB TAKE TWO TABLETS BY MOUTH AT ACTIVE BEDTIME FOR INSOMNIA 6) TROSPIUM CL 20MG TAB TAKE ONE TABLET BY MOUTH TWICE ACTIVE DAILY ADMINISTER ON AN EMPTY STOMACH Active Non-VA Medications Status = 1) Non-VA AMLODIPINE BESYLATE 5MG TAB 5MG [...] TAB 1GM BY MOUTH TWICE DAILY ACTIVE 17 Total Medications Allergies:METFORMIN Previous Surgery/Hospitalization: N/A TO THE CC *NOTE: A1C=5.7 (LAST TAKEN: 04/2022) FBS=DNP RISK=3 HEIGHT:246.4 lb [111.77 kg] (07/29/2023 08:13) [...] present physical-medical status. Protective sensation utilizing a [place]-Vidhya lOg monofilament is 9/10RT & 8/10 LEFT. *NOTE: *YEARLY COMPLETE PAVE EXAM PERFORMED TODAY - SEE BELOW. BIOMECHANICAL: Exam is deferred at this time due to the presence of pain/ as non-contributory to the cc . A: Clinical Impression is onychocryptic clinically mycotic dystrophic nails in the presence of [id number]. P: Treatment consists of debridement-reduction of all [...] the underlying medical conditions. Return to Clinic: 24Weeks(01/08 @ 9:30) ORDERED DM ANKLETS SIZE 11 TO BE MAILED AND WHEN IN NEED OF SHOES WILL REASSESS HE HAS NEW SKECHERS AT THIS TIME. ALSO ORDERED AMMONIUM LACTATE TO USE UNDER OCCLUSION 1-2X/WEEK NECESARY. *DISCUSSED NEW PROTOCOLS AND CALLED MAKAYLA TODAY FOR RESCHEDULING I DISCUSSED THE FINDINGS & PLAN WITH PATIENT (UNCHANGED SINCE PREVIOUS VISIT) & PATIENT AGREES AND UNDERSTANDS PLAN Medication Reconciliation: Outpatient: Has the patient been taking medications as documented in the EMLR? YES: The patient has been taking medications as documented in the EMLR. Essential Medication List for Review used to complete this medication reconciliation. INCLUDED IN THIS LIST: Alphabetical list of active outpatient prescriptions dispensed from this [place] (local) and dispensed from another [place] or DoD facility (remote) as well as [...] whether with a VA or non-VA provider. PAVE Foot Check: A complete foot check was completed at this encounter. VISUAL INSPECTION: Includes inspection for skin breaks, deformity, erythema, trauma, pallor on elevation, dependent rubor, nail deformities, extensive callus and pitting edema. Visual exam results: Abnormal Observations: Prior amputation of toes/foot, Thickened toenails PEDAL PULSES: Includes palpation of dorsalis and posterior tibial pulses and signs/symptoms of vascular compromise like pain, pallor, parasthesia or paralysis. Absent: Comment: DP & PT PULSES ARE ABSENT NON-PALPABLE BILAT SENSORY CHECK: Includes 10 gram Monofilament ([place]-Vidhya) test of sensation. Intact (Greater than or equal to 80% of sites checked) Abnormal (Less than 80% of sites checked): Intact Comment: VIBRATORY & MONOFILAMENT ARE WNL BILAT HIGH-RISK: HIGH RISK INFORMATION PROVIDED: 1. Advised patient that extra depth footwear with soft molded inserts and braces may be required. 2. Advised patient not to walk barefoot. 3. Explained the importance of daily foot checks. 4. Stressed the importance of daily foot hygiene, including bathing, complete drying and thorough inspection for changes. The patient verbalized understanding and was offered a detailed handout on diabetic foot care. Patient is established patient of Podiatry and/or Vascular: Last scheduled appointment: PAST APPTS IN CLINICS WITH STOP CODE [id number] - NONE FOUND Comment: 08/21/2023 /nicole/ ASHLEIGH QUINTEROS DPM WEDGER Signed: 08/21/2023 10:35 ASHLEIGH QUINTEROS
--- OUTSIDE RECORDS SUMMARY | 2024-05-05 07:44 | XMS_ITS | Encounter Summary ---
Author Name [facility] [place] Address [address] [place] [address] Care Team Providers Care Laundry Housekeeping Aide Name Role Phone JOSE MANUEL PITT Primary [...] Burgess's Name Patient's Relationship to Policy Burgess [facility] HEALTH PLAN MEDICARE SUPPLEMEN BETY MEDIC ARE SUPPL EMENT A Feb 18, 2022 SUPP1 [id number] GINA DE LA ROSA PATIENT [facility] MED PREFER/SEN IOR CARE MEDICARE SUPPLEMEN BETY MEDIC ARE SUPPL EMENT A Feb 18, 2021 SUPP1 [id number] [phone] GINA DE LA ROSA PATIENT Selected Encounter This section includes the information on record at [place] for the Encounter. Date/Time Encounter Type Encounter Description Reason Pro vider Source Apr 20, 2024 09:10 AM Outpatient Encounter EVENT (HISTORICAL) IHE Encounter Template Text not used by [place] Plan of Treatment: Future Appointments (+ 6 [...] PS[facility]CHIATRY [facility] [place] [facility] Apr 29, 2024 09:00 AM AMBULATORY - PS[facility]IATRY [facility] [place] [facility] May 04, 2024 07:00 AM AMBULATORY - PS[facility]IATRY [facility] [place] [facility] May 04, 2024 10:15 AM AMBULATORY - MEDICINE [facility] [place] [facility] May 06, 2024 09:00 AM AMBULATORY - PS[facility]CHIATRY [facility] [place] [facility] May 13, 2024 09:00 AM AMBULATORY - PS[facility]CHIATRY [facility] [place] [facility] May 14, 2024 09:30 AM [facility] May 20, 2024 09:00 AM AMBULATORY - PS[facility]CHIATRY [facility] [place] [facility] May 21, 2024 02:00 PM AMBULATORY - MEDICINE [facility] [place] [facility] May 25, 2024 07:00 AM AMBULATORY - PSYCHIATRY [facility] [place] [facility] May 27, 2024 09:00 AM AMBULATORY - PS[facility]CHIATRY [facility] [place] [facility] Jun 01, 2024 01:00 PM AMBULATORY - PS[facility]CHIATRY [facility] [place] [facility] Jun 03, 2024 09:00 AM AMBULATORY - PS[facility]CHIATRY [facility] [place] [facility] Jun 09, 2024 07:00 AM AMBULATORY - PS[facility]CHIATRY [facility] [place] [facility] Jun 10, 2024 09:00 AM AMBULATORY - PS[facility]CHIATRY [facility] [place] [facility] June 22, 2024 07:00 AM AMBULATORY - PS[facility]CHIATRY [facility] [place] [facility] July 06, 2024 07:00 AM AMBULATORY - PS[facility]CHIATRY [facility] [place] [facility] Jul 20, 2024 09:00 AM AMBULATORY - NEUROLOGY [facility] [place] [facility] Aug 03, 2024 08:30 AM [facility] Active, Pending, and Scheduled Orders [...] X1 SCREEN (MFP ONLY) STOOL FECES SP [facility] Vital Signs: All taken on the encounter date This section contains inpatient and outpatient Vital Signs collected on the date of the Encounter. Date/Time Temperature Pulse Blood Pressure Respiratory Rate SP02 Pain Height Weight Body Mass Index Source Apr 20, 2024 09:04 AM 97.2 68 158/77 18 96 6 245 34 [facility] Social History: Smoking Status (Most current) [...] 07:00 AM VA-TOBACCO USE FOR TYRONE CIGARETTES [facility] Tobacco Use History This section includes a history of the smoking, or tobacco-related health factors, that were collected on or before the date of the Encounter. The data comes from the [place] facility where the Encounter took place. Date/Time Smoking Status/Tobacco Use Comment F acility Mar 30, 2024 07:00 AM VA-TOBACCO USE FOR TYRONE OTHER TYPE [place] [facility] [place] [facility] Apr 15, 2023 07:00 AM VA-TOBACCO FORMER USER [place] [facility] [place] [facility] Apr 15, 2023 07:00 AM VA-TOBACCO QUIT 15 YRS OR MORE [facility] Apr 24, 2022 07:00 AM VA-TOBACCO FOR[facility] Apr 24, 2022 07:00 AM VA-TOBACCO QUIT 15 YRS OR MORE [place] [facility] [place] [facility] Apr 27, 2021 03:00 PM VA-TOBACCO FORMER USER [facility] [place] [facility] Apr 27, 2021 03:00 PM VA-TOBACCO QUIT 15 YRS OR MORE [facility] [place] [facility] Mar 17, 2020 03:00 PM VA-TOBACCO FORMER USER [facility] [place] [facility] Mar 17, 2020 03:00 PM VA-TOBACCO QUIT 15 YRS OR MORE [place] [facility] [place] [facility] Mar 31, 2019 09:04 AM VA-TOBACCO FORMER USER [place] [facility] [place] [facility] Mar 31, 2019 09:04 AM VA-TOBACCO QUIT 15 YRS OR MORE [place] [facility] [place] [facility]
--- OUTSIDE RECORDS SUMMARY | 2024-05-05 07:44 | XMS_ITS | Encounter Summary ---
Author Name [facility] [place] Address [address] [place] [address] Care Team Providers Care Laserist Name Role Phone JOSE MANUEL PITT Primary [...] Burgess's Name Patient's Relationship to Policy Burgess [facility] HEALTH PLAN MEDICARE SUPPLEMEN BETY MEDIC ARE SUPPL EMENT A Feb 18, 2022 SUPP1 [id number] GINA DE LA ROSA PATIENT [facility] MED PREFER/SEN IOR CARE MEDICARE SUPPLEMEN BETY MEDIC ARE SUPPL EMENT A Feb 18, 2021 SUPP1 [id number] GINA DE LA ROSA PATIENT Selected Encounter This section includes the information on record at [place] for the Encounter. Date/Time Encounter Type Encounter Description Reason Provider Source Jul 22, 2023 07:00 AM PSYTX W PT 45 [facility]UTES [facility] - IND ICD-10-CM F43.12 Post-traumatic stress disorder, chronic MOISES PADILLA Encounter Template Text not used by [place] Assessments - Encounter Diagnoses This section includes the primary and secondary diagnoses documented for the Encounter. Date/Time Primary/Secondary Diagnosis Diagnosis Name Provider Source Jul 22, 2023 07:47 AM PRIMARY Post-traumatic stress disorder, chronic MOISES PADILLA [place] [facility] [place] [facility] Jul 22, 2023 07:47 AM SECONDARY Persistent mood [affective] disorder, unspecified MOISES PADILLA [place] [facility] [place] [facility] Jul 22, 2023 07:47 AM SECONDARY Unsp symptoms and signs w cognitive functions and awareness MOISES PADILLA [place] [facility] [place] [facility] Plan of Treatment: Future Appointments (+ 6 months) and Future Tests (+/- 45 days) The Plan of Treatment section includes future care activities for the patient from [facility] [place] [facility] This section includes future appointments and future orders which are active, pending or scheduled. Future Appointments This section includes appointments that were scheduled to occur 6 months from the date of the Encounter, up to a maximum of 20 appointments. The data comes from all [place] treatment facilities. Appointment Date/Time Appointment Type Appointme nt Facility Name Jul 25, 2023 01:30 PM AMBULATORY - PS[facility]CHIATRY [facility] [place] [facility] Jul 29, 2023 07:00 AM AMBULATORY - PSYCHIATRY [facility] [place] [facility] Jul 29, 2023 08:30 AM AMBULATORY - MEDICINE [place] [facility] [place] [facility] Aug 21, 2023 10:00 AM AMBULATORY - MEDICINE [facility] Sep 02, 2023 07:00 AM AMBULATORY - PS[place]IATRY [place] [facility] [place] [facility] Sep 09, 2023 05:00 PM AMBULATORY - PS[facility]CHIATRY [facility] [place] [facility] Sep 11, 2023 09:00 AM AMBULATORY - PS[facility]CHIATRY [facility] [place] [facility] Sep 19, 2023 01:30 PM AMBULATORY - PSYCHIATRY [facility] [place] [facility] Sep 25, 2023 09:00 AM AMBULATORY - PSYCHIATRY [facility] [place] [facility] Sep 30, 2023 07:00 AM AMBULATORY - PS[facility]CHIATRY [facility] [place] [facility] Oct 02, 2023 09:00 AM AMBULATORY - PSYCHIATRY [facility] [place] [facility] Oct 09, 2023 09:00 AM AMBULATORY - PSYCHIATRY [facility] [place] [facility] Oct 16, 2023 09:00 AM AMBULATORY - PSYCHIATRY [facility] [place] [facility] Oct 23, 2023 09:00 AM AMBULATORY - PSYCHIATRY [facility] [place] [facility] Oct 28, 2023 07:00 AM AMBULATORY - PS[facility]CHIATRY [facility] [place] [facility] Oct 28, 2023 08:00 AM AMBULATORY - NEUROLOGY [facility] [place] [facility] Oct 28, 2023 09:30 AM AMBULATORY - PS[facility]CHIATRY [facility] [place] [facility] Oct 30, 2023 09:00 AM AMBULATORY - PSYCHIATRY [facility] [place] [facility] Nov 06, 2023 09:00 AM AMBULATORY - PS[facility]CHIATRY [facility] [place] [facility] Nov 13, 2023 09:00 AM AMBULATORY - PS[place]IATRY [place] [facility] [place] [facility] Vital Signs: All taken on the encounter date This section contains inpatient and outpatient Vital Signs collected on the date of the Encounter. Date/Time Temperature Pulse Blood Pressure Respiratory Rate SP02 Pain Height Weight Body Mass Index Source Jul 22, 2023 07:55 AM 97.6 62 149/79 18 95 6 260 36 [facility] [place] [facility] Social History: Smoking Status (Most current) [...] 15, 2023 07:00 AM VA-TOBACCO FORMER USER [facility] [place] [facility] Tobacco Use History This section includes a history of the smoking, or tobacco-related health factors, that were collected on or before the date of the Encounter. The data comes from the [place] facility where the Encounter took place. Date/Time Smoking Status/Tobacco Use Comment F jodie Apr 15, 2023 07:00 AM VA-TOBACCO QUIT 15 YRS OR MORE [place] [facility] [place] [facility] Apr 24, 2022 07:00 AM VA-TOBACCO FORMER USER [place] [facility] [place] [facility] Apr 24, 2022 07:00 AM VA-TOBACCO QUIT 15 YRS OR MORE [place] [facility] [place] [facility] Apr 27, 2021 03:00 PM VA-TOBACCO FORMER USER [facility] [place] [facility] Apr 27, 2021 03:00 PM VA-TOBACCO QUIT 15 YRS OR MORE [facility] [place] [facility] Mar 17, 2020 03:00 PM VA-TOBACCO FORMER USER [facility] [place] [facility] Mar 17, 2020 03:00 PM VA-TOBACCO QUIT 15 YRS OR MORE [facility] [place] [facility] Mar 31, 2019 09:04 AM VA-TOBACCO FORMER USER [facility] [place] [facility] Mar 31, 2019 09:04 AM VA-TOBACCO QUIT 15 YRS OR MORE [place] [facility] [place] [facility] Encounter Notes: All associated encounter notes This section contains the clinical notes associated to the Encounter. Date/Time Encounter Note(s) Provider Source Jul 22, 2023 06:42 AM PSYCHOLOGY NOTE: LOCAL TITLE: PSYCHOLOGY NOTE STANDARD TITLE: PSYCHOLOGY NOTE DATE OF NOTE: JUL 22, 2023@06:42 ENTRY DATE: JUL 22, 2023@06:42:25 AUTHOR: MOISES PADILLA COSIGNER: URGENCY: STATUS: COMPLETED was identified by Visual recognition and patient name. VISIT DURATION 45 minutes DIAGNOSES: Persistent mood disorder, unspecified PTSD, chronic Cognitive Disorder (History of) Cerebral Infarction, Unspecified PRESENTING PROBLEMS: presented on time and re-engaged in treatment as usual, focusing on marital and family discord as well as anger management. SESSION FOCUS: [place] spoke about recent stressors at home which involve problematic communication between he and his . explained that Carlyn requested that he dismantle and move a storage shed, which ended up causing him a lot of work and stress to do. By the end, she decided that they should just get a new one, which understandably angered him. This type of scenario has been seen a number of times, so we explored some ways that [place]ton can apply his assertiveness and communication skills. [place] was encouraged to consider how he can slow down the process and advocate for more consideration of options and/or ask for help before beginning the task. I don't know why I never do to be honest he recognized. We also spoke about his stress management with his own house projects, as he tends to hurry or feel pressure to sampson the job, which increases likelihood of mistakes. Lastly, we check back in on ongoing marital discord around 's contact with his siblings. His brother recently invited him to get together and Carlyn reportedly didn't respond at all. We explored some ways that he can advocate for himself (hang out with his brother) but also thoughtfully communicate with her around it. ASSESSMENT: BRIEF ASSESSMENT OF MENTAL STATUS: 1. [...] /es/ Moises Padilla PsyD Staff Psychologist Signed: 07/22/2023 07:47 MOISES PADILLA [place] [facility]
--- OUTSIDE RECORDS SUMMARY | 2024-05-05 07:44 | XMS_ITS | Encounter Summary ---
Author Name [facility] [place] Address [address] [place] [address] Care Team Providers Care Fagot Heater Name Role Phone JOSE MANUEL PITT Primary [...] Burgess's Name Patient's Relationship to Policy Burgess [facility] HEALTH PLAN MEDICARE SUPPLEMEN BETY MEDIC ARE SUPPL EMENT A Feb 18, 2022 SUPP1 [id number] GINA DE LA ROSA PATIENT [facility] MED PREFER/SEN IOR CARE MEDICARE SUPPLEMEN BETY MEDIC ARE SUPPL EMENT A Feb 18, 2021 SUPP1 [id number] GINA DE LA ROSA PATIENT Selected Encounter This section includes the information on record at [place] for the Encounter. Date/Time Encounter Type Encounter Description Reason Provider Source Jan 22, 2024 09:00 AM GROUP PSYCHOTHERAPY [facility] ICD-10-CM F43.12 Post-traumati c stress disorder, chronic MARIALUISA SALCEDO Encounter Template Text not used by [place] Assessments - Encounter Diagnoses This section includes the primary and secondary diagnoses documented for the Encounter. Date/Time Primary/Secondary Diagnosis Diagnosis Name Provider Source Jan 22, 2024 10:33 AM PRIMARY Post-traumatic stress disorder, chronic MARIALUISA SALCEDO [place] [facility] [place] [facility] Plan of Treatment: Future Appointments (+ 6 months) and Future Tests (+/- 45 days) The Plan of Treatment section includes future care activities for the patient from all [place] treatmentfacilities. This section includes future appointments and future orders which are active, pending or scheduled. Future Appointments This section includes appointments that were scheduled to occur 6 months from the date of the Encounter, up to a maximum of 20 appointments. The data comes from all [place] treatment facilities. Appointment Date/Time Appointment Type Appointme nt Facility Name Jan 27, 2024 01:30 PM AMBULATORY - [facility]IATRY [facility] [place] [facility] Jan 29, 2024 09:00 AM AMBULATORY - PS[facility]CHIATRY [facility] [place] [facility] Feb 05, 2024 09:00 AM AMBULATORY - PSYCHIATRY [facility] [place] [facility] Feb 10, 2024 07:00 AM AMBULATORY - PSYCHIATRY [facility] [place] [facility] Feb 24, 2024 07:00 AM AMBULATORY - PSYCHIATRY [facility] [place] [facility] Mar 04, 2024 09:00 AM AMBULATORY - PSYCHIATRY [facility] [place] [facility] Mar 11, 2024 09:00 AM AMBULATORY - PSYCHIATRY [facility] [place] [facility] Mar 18, 2024 09:00 AM AMBULATORY - PSYCHIATRY [facility] [place] [facility] Mar 25, 2024 09:00 AM AMBULATORY - PS[facility]CHIATRY [facility] [place] [facility] Mar 30, 2024 07:00 AM AMBULATORY [...] C [facility] [place] [facility] Social History: Smoking Status (Most current) [...] 15, 2023 07:00 AM VA-TOBACCO FORMER USER [place] [facility] [place] [facility] Tobacco Use History This section includes [...] YRS OR MORE [place] [facility] [place] [facility] Encounter Notes: All associated encounter notes This section contains the clinical notes associated to the Encounter. Date/Time Encounter Note(s) Provider Source Jan 22, 2024 10:19 AM SOCIAL WORK GROUP COUNSELING NOTE: LOCAL TITLE: SOCIAL WORK GROUP NOTE STANDARD TITLE: SOCIAL WORK GROUP COUNSELING NOTE DATE OF NOTE: JAN 22, 2024@10:19 ENTRY DATE: JAN 22, 2024@10:19:54 AUTHOR: MARIALUISA SALCEDO EXP COSIGNER: URGENCY: STATUS: COMPLETED iRest Group Date: 01/22/24 Time: 9 AM Number of group members: 13 Wood Turning Lathe Operator: Marialuisa Salcedo ASPHALT MACHINE OPERATOR Group began with a introduction that iRest [...] emotions and thoughts. Today's theme was on working with beliefs. engaged with pocket operator and group members appropriately, participating in the meditation and reflection time. did not endorse SI/HI. [facility]'s intention was to be calm and alert. DIAGNOSES: Persistent mood disorder, unspecified PTSD, chronic Cognitive Disorder (History of) Cerebral Infarction, Unspecified [place] [facility] ([facility]) Standard Documentation [facility] Clinician Resources Only: E911 (Emergency Call Relay Center): [phone] National [facility] Crisis Line - 988 then press #1. BETH Suicide Coordinator [phone], Ext. [phone]; Back-up Ext. [phone] BETH Avendaño [place] [phone] Introduction: Visit is being conducted by [employer]. identified with 2 identifiers: [X] Full Name [X] Date of [ ] VA ID Card Emergency Plan: confirmed and/or provided the following information in case of emergency or technology failure. PATIENT PHONE - PHONE NUMBER [CELLULAR] - Is patient phone number correct, if not, enter below: 's phone number: TAJ DE LA ROSA [address], [place], [address] [facility]'s present location and address for appointment: his home [facility]'s emergency contact name and phone number: E-Cont.: ESTRELLAJUVENCIO Relation Type: UNRELATED FRIEND/OTHER Relation Note: OTHERS [address] [place] [address] [facility] reported that location is private and safe: Yes Informed Consent: informed of the risks and benefits of Telehealth video care. [facility] has the right to refuse video services. If refuses video visit, a [id number] visit will be scheduled. verbalized consent for this video visit: Yes [facility] provided consent for any other persons present for visit: Yes If yes, who and relationship to patient:group Secure visit: Visit was locked for security and privacy:Yes /nicole/ REBECA CARABALLO Reeling Operator Signed: 01/22/2024 10:34 MARIALUISA SALCEDO [facility]
--- OUTSIDE RECORDS SUMMARY | 2024-05-05 07:44 | XMS_ITS ---
Author Name [facility] [place] [facility] [place] [facility] [place] Address [address] [place] [address] Care Team Providers Care Risk Control Officer Name Role Phone JOSE MANUEL PITT [...] SUPPL EMENT A Feb 18, 2022 SUPP1 [id number] GINA DE LA ROSA PATIENT [facility] MED PREFER/SEN IOR CARE MEDICARE SUPPLEMEN BETY MEDIC ARE SUPPL EMENT A Feb 18, 2021 SUPP1 [id number] [phone] GINA DE LA ROSA PATIENT Selected Encounter This section includes the information on record at [place] for the Encounter. Date/Time Encounter Type Encounter Description Reason Provider Source Apr 13, 2024 07:00 AM PSYTX W PT 45 MINUTES [facility]ENTAL [facility] CLINIC - IND ICD-10-CM F43.12 Post-traumatic stress disorder, chronic MOISES PADILLA Encounter Template Text not used by [place] Assessments - Encounter Diagnoses This section includes the primary and secondary diagnoses documented for the Encounter. Date/Time Primary/Secondary Diagnosis Diagnosis Name Provider Source Apr 13, 2024 07:54 AM PRIMARY Post-traumatic stress disorder, chronic MOISES PADILLA [place] [facility] [place] [facility] Apr 13, 2024 07:54 AM SECONDARY Persistent mood [affective] disorder, unspecified MOISES PADILLA [place] [facility] [place] [facility] Apr 13, 2024 07:54 AM SECONDARY Unsp symptoms and signs w cognitive functions and awareness MOISES PADILLA [place] [facility] Plan of Treatment: Future Appointments (+ 6 months) and Future Tests (+/- 45 days) The Plan of Treatment section includes future care activities for the patient from all [place] [facility]. This section includes future appointments and future orders which are active, pending or scheduled. Future Appointments This section includes appointments that were scheduled to occur 6 months from the date of the Encounter, up to a maximum of 20 appointments. The data comes from all [place] treatment facilities. Appointment Date/Time Appointment Type Appointme nt Facility Name Apr 15, 2024 09:00 AM AMBULATORY - PSYCHIATRY [facility] [place] [facility] Apr 20, 2024 09:00 AM AMBULATORY - NEUROLOGY [place] [facility] [place] [facility] Apr 22, 2024 09:00 AM AMBULATORY - PSYCHIATRY [facility] [place] [facility] Apr 29, 2024 09:00 AM AMBULATORY - PSYCHIATRY [facility] [place] [facility] May 04, 2024 07:00 AM AMBULATORY - PSYCHIATRY [facility] [place] [facility] May 04, 2024 10:15 AM AMBULATORY - MEDICINE [facility] [place] [facility] May 06, 2024 09:00 AM AMBULATORY - PSYCHIATRY [facility] [place] [facility] May 13, 2024 09:00 AM AMBULATORY - PSYCHIATRY [facility] [place] [facility] May 14, 2024 09:30 AM AMBULATORY - MEDICINE [facility] May 20, 2024 09:00 AM AMBULATORY - PSYCHIATRY [facility] [place] [facility] May 21, 2024 02:00 PM AMBULATORY - MEDICINE [facility] [place] [facility] May 25, 2024 07:00 AM AMBULATORY - PSYCHIATRY [facility] [place] [facility] May 27, 2024 09:00 AM AMBULATORY - PSYCHIATRY [place] [facility] [place] [facility] Jun 01, 2024 01:00 PM AMBULATORY - PSYCHIATRY [place] [facility] [place] [facility] Jun 03, 2024 09:00 AM AMBULATORY - PSYCHIATRY [place] [facility] [place] [facility] Jun 09, 2024 07:00 AM [facility] Jun 10, 2024 09:00 [facility] [place] [facility] June 22, 2024 07:00 AM [facility] [place] [facility] July 06, 2024 07:00 AM [facility] Jul 20, 2024 09:00 AM [facility] Active, Pending, and Scheduled Orders This section includes a listing of several types of active, pending, and scheduled orders, including clinic medications orders, diagnostic test orders, procedure orders and consult orders; where the start date of the order is 45 days before the date of the Encounter or 45 days after the date of theEncounter. The data comes from all [place] treatment facilities. Test Date/Time Test Type Test Details Facility Name Apr 27, 2024 12:00 AM Laboratory - Chemi stry Order OCCULT BLOOD FIT X1 SCREEN (MFP ONLY) STOOL FECES SP [facility] Social History: Smoking Status (Most current) and Tobacco Use (All prior to encounter date) This section includes the most current, and the historical, smoking and tobacco- related health factors from the [place] facility where the Encounter took place. Current Smoking Status This section includes the most current smoking, or tobacco-related health factor, from the [place] facility where the Encounter took place. Date/Time Current Smoking Status Comment Facil stefani Mar 30, 2024 07:00 AM VA-TOBACCO USE FOR TYRONE CIGARETTES [facility] Tobacco Use History This section includes a history of the smoking, or tobacco-related health factors, that were collected on or before the date of the Encounter. The data comes from the [place] facility where the Encounter took place. Date/Time Smoking Status/Tobacco Use Comment F acility Mar 30, 2024 07:00 AM VA-TOBACCO USE FOR TYRONE OTHER TYPE [facility] [place] [facility] Apr 15, 2023 07:00 AM VA-TOBACCO FORMER USER [facility] [place] [facility] Apr 15, 2023 07:00 AM VA-TOBACCO QUIT 15 YRS OR MORE [facility] [place] [facility] Apr 24, 2022 07:00 AM VA-TOBACCO FORMER USER [facility] [place] [facility] Apr 24, 2022 07:00 AM VA-TOBACCO QUIT 15 YRS OR MORE [facility] [place] [facility] Apr 27, 2021 03:00 PM VA-TOBACCO FORMER USER [facility] [place] [facility] Apr 27, 2021 03:00 PM VA-TOBACCO QUIT 15 YRS OR MORE [facility] [place] [facility] Mar 17, 2020 03:00 PM VA-TOBACCO FORMER USER [facility] [place] [facility] Mar 17, 2020 03:00 PM VA-TOBACCO QUIT 15 YRS OR MORE [facility] [place] [facility] Mar 31, 2019 09:04 AM VA-TOBACCO FORMER USER [facility] [place] [facility] Mar 31, 2019 09:04 AM VA-TOBACCO QUIT 15 YRS OR MORE [facility] [place] [facility] Encounter Notes: All associated encounter notes This section contains the clinical notes associated to the Encounter. Date/Time Encounter Note(s) Provider Source Apr 13, 2024 06:56 AM PSYCHOLOGY NOTE: LOCAL TITLE: PSYCHOLOGY NOTE STANDARD TITLE: PSYCHOLOGY NOTE DATE OF NOTE: APR 13, 2024@06:56 ENTRY DATE: APR 13, 2024@06:56:18 AUTHOR: MOISES PADILLA COSIGNER: URGENCY: STATUS: COMPLETED was identified by Visual recognition and patient name. VISIT DURATION 45 minutes DIAGNOSES: Persistent mood disorder, unspecified PTSD, chronic Cognitive Disorder (History of) Cerebral Infarction, Unspecified PRESENTING PROBLEMS: [place] presented on time and we resumed treatment as usual, focusing stress management related to his Carlyn's recent Lymphoma diagnosis and treatment initiation. We also reviewed his behavioral activation/coping skill goals. SESSION FOCUS: was tearful as he shared the difficulty that Carlyn has been going through since starting her 2nd round of chemotherapy. She is reportedly experiencing many more side effects than she did initially, including losing her hair, panic attacks and pain. Aury was encouraged to process the sense of helplessness that he has been feeling. We are spending so much time together he shared, and explained that he is fearful of leaving her alone due to her increasing recurrence of panic attacks. We focused on this for some time, highlighting that she needs a therapist of her own, and he can't fill that spot for her. Aury agreed and shared that she has been very hesitant about doing this again. This provider showed Aury a website which could make the search process much easier, in an effort to reduce that barrier. This provider also briefly spoke with Carlyn after the session to re-iterate this suggestion. 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 Aury was happy to share that he did resume this and completed the project. He spoke to the satisfaction it gives him and we spoke about starting another project, perhaps to give to Carlyn, which could help him feel more productive/in control. ASSESSMENT: BRIEF ASSESSMENT OF MENTAL STATUS: 1. [...] /nicole/ Moises Padilla PsyD Staff Psychologist Signed: 04/13/2024 07:54 MOISES PADILLA [place] [facility]
--- OUTSIDE RECORDS SUMMARY | 2024-05-05 07:44 | XMS_ITS | Encounter Summary ---
Author Name [facility] Organization [facility] Address [address] [place] [address] Care Team Providers Care Gantry Crane Operator Name Role Phone JOSE MANUEL PITT [...] Burgess's Name Patient's Relationship to Policy Burgess [facility] MEDICARE SUPPLEMEN BETY MEDIC ARE SUPPL EMENT A Feb 18, 2022 SUPP1 [id number] GINA DE LA ROSA PATIENT [facility] PREFER/SEN IOR CARE MEDICARE SUPPLEMEN BETY MEDIC ARE SUPPL EMENT A Feb 18, 2021 SUPP1 [id number] [phone] GINA DE LA ROSA PATIENT Selected Encounter This section includes the information on record at [place] for the Encounter. Date/Time Encounter Type Encounter Description Reason Provider Source Oct 28, 2023 09:30 AM OFFICE O/P EST [place] [facility] - IND ICD-10-CM F34.9 Persistent mood [affective] disorder, unspecified NAV [facility] Encounter Template Text not used by [place] Assessments - Encounter Diagnoses This section includes the primary and secondary diagnoses documented for the Encounter. Date/Time Primary/Secondary Diagnosis Diagnosis Name Provider Source Oct 28, 2023 01:49 PM PRIMARY Persistent mood [affective] disorder, unspecified [facility] [place] [facility] Oct 28, 2023 01:49 PM SECONDARY Post-traumatic stress disorder, chronic LACHELLE STANFORDGUY Teri Chan [place] [facility] [place] [facility] Oct 28, 2023 01:49 PM SECONDARY Unsp symptoms and signs w cognitive functions and awareness [facility] [place] [facility] [place] [facility] Plan of Treatment: Future Appointments (+ 6 months) and Future Tests (+/- 45 days) The Plan of Treatment section includes future care activities for the patient from [facility] [place] [facility]. This section includes future appointments and future [...] AMBULATORY - PSYCHIATRY [facility] [place] [facility] Nov 06, 2023 09:00 AM AMBULATORY - PSYCHIATRY [facility] [place] [facility] Nov 13, 2023 09:00 AM AMBULATORY - PSYCHIATRY [facility] [place] [facility] Nov 19, 2023 07:00 AM AMBULATORY - PSYCHIATRY [facility] [place] [facility] Nov 20, 2023 09:00 AM AMBULATORY - PSYCHIATRY [facility] [place] [facility] Nov 27, 2023 09:00 AM AMBULATORY - PSYCHIATRY [facility] [place] [facility] Dec 04, 2023 09:00 AM AMBULATORY - PSYCHIATRY [facility] [place] [facility] Dec 11, 2023 09:00 AM AMBULATORY - PSYCHIATRY [facility] [place] [facility] Dec 16, 2023 09:30 AM AMBULATORY - PSYCHIATRY [facility] [place] [facility] Dec 18, 2023 09:00 AM AMBULATORY - PSYCHIATRY [facility] [place] [facility] Dec 19, 2023 07:30 AM AMBULATORY - MEDICINE [facility] [place] [facility] Dec 23, 2023 07:00 AM AMBULATORY - PSYCHIATRY [facility] [place] [facility] Dec 25, 2023 09:00 AM AMBULATORY - PSYCHIATRY [facility] [place] [facility] Jan 01, 2024 09:00 AM AMBULATORY - PSYCHIATRY [facility] [place] [facility] Jan 08, 2024 09:00 AM AMBULATORY - PSYCHIATRY [facility] [place] [facility] Jan 09, 2024 09:30 AM AMBULATORY - MEDICINE [place] [place] Jan 14, 2024 07:00 AM AMBULATORY - PSYCHIATRY [facility] [place] [facility] Jan 20, 2024 08:30 AM AMBULATORY - NEUROLOGY [facility] [place] [facility] Jan 22, 2024 09:00 AM AMBULATORY - PSYCHIATRY [facility] [place] [facility] Jan 27, 2024 01:30 PM AMBULATORY - PSYCHIATRY [place] [facility] [place] [facility] Active, Pending, and Scheduled Orders This [...] 02:36 PM Consult Order COMMUNITY CARE-UROLOGY Cons Language Translator's Choice [facility] [place] [facility] Oct 28, 2023 01:47 PM Consult Order COMMUNITY CARE-NEUROLOGY Cons Language Translator's Choice [facility] [place] [facility] Vital Signs: All taken on the encounter date This section contains inpatient and outpatient Vital Signs collected on the date of the Encounter. Date/Time Temperature Pulse Blood Pressure Respiratory Rate SP02 Pain Height Weight Body Mass Index Source Oct 28, 2023 08:15 AM 130/82 [facility] [place] [facility] Oct 28, 2023 07:58 AM 96 8 247 35 [facility] [place] [facility] Oct 28, 2023 07:58 AM 64 148/88 20 [facility] [place] [facility] Social History: Smoking Status (Most [...] place. Date/Time Current Smoking Status Comment Nurys itpreeti Apr 15, 2023 07:00 AM VA-TOBACCO QUIT 15 YRS OR MORE [place] [facility] [place] [facility] Tobacco Use History This section includes a history of the smoking, or tobacco-related health factors, that were collected on or before the date of the Encounter. The data comes from the [place] facility where the Encounter took place. Date/Time Smoking Status/Tobacco Use Comment F acshen Apr 15, 2023 07:00 AM VA-TOBACCO QUIT 15 YRS OR MORE [facility] [place] [facility] Apr 24, 2022 07:00 AM VA-TOBACCO FORMER USER [facility] [place] [facility] Apr 24, 2022 07:00 AM VA-TOBACCO QUIT 15 YRS OR MORE [facility] [place] [facility] Apr 27, 2021 03:00 PM VA-TOBACCO FORMER USER [facility] [place] [facility] Apr 27, 2021 03:00 PM VA-TOBACCO QUIT 15 YRS OR MORE [facility] [place] [facility] Mar 17, 2020 03:00 PM VA-TOBACCO FORMER USER [facility] [place] [facility] Mar 17, 2020 03:00 PM VA-TOBACCO QUIT 15 YRS OR MORE [facility] [place] [facility] Mar 31, 2019 09:04 AM VA-TOBACCO FORMER USER [facility] [place] [facility] Mar 31, 2019 09:04 AM VA-TOBACCO QUIT 15 YRS OR MORE [facility] [place] [facility] Encounter Notes: All associated encounter notes This section contains the clinical notes associated to the Encounter. Date/Time Encounter Note(s) Provider Source Oct 28, 2023 09:57 AM ACCOUNTING OF DISCLOSURES NOTE: LOCAL TITLE: STATE PRESCRIPTION DRUG MONITORING PROGRAM STANDARD TITLE: ACCOUNTING OF DISCLOSURES NOTE DATE OF NOTE: OCT 28, 2023@09:57:27 ENTRY DATE: OCT 28, 2023@09:57:27 AUTHOR: STANFORD,SALLY E EXP COSIGNER: URGENCY: STATUS: COMPLETED This PDMP query was submitted by Sally Stanford. The clinical justification for this PDMP query is to review controlled substances prescribed outside of the [facility], and any additional information that may become available, as an important component of standard clinical care, and in accordance with [facility] policy. [facility] [place]. No prescription(s) for controlled substances outside the [facility] were found in the last 90 days. /nicole/ SALLY STANFORD PSYCHIATRIST Signed: 10/28/2023 09:57 SALLY STANFORD [facility] [place] [facility] Oct 28, 2023 09:42 AM PSYCHIATRY NOTE: LOCAL TITLE: PSYCHIATRY NOTE STANDARD TITLE: PSYCHIATRY NOTE DATE OF NOTE: OCT 28, 2023@09:42 ENTRY DATE: OCT 28, 2023@09:42:25 AUTHOR: SALLY STANFORD EXP COSIGNER: URGENCY: STATUS: COMPLETED PSYCHIATRY FOLLOW UP VISIT TAJ DE LA ROSA is a 67yo MARITAL STATUS - WHITE MALE with a history of [employer] FROM Nov TO Nov INTERVAL HISTORY Mood remains slightly low. Also with ongoing distractibility, jumping from task to task. Pain causes him to try to stay active, and he can feel anxious/agitated at times. Same sleep pattern, shifted very early, 8am-2am/4am. CURRENT MEDICATIONS Active Outpatient Medications (including Supplies): AMMONIUM LACTATE 12% LOTION APPLY SMALL AMOUNT TOPICALLY ACTIVE AT BEDTIME FOR DRY IRRITATED SKIN UNDER OCCLUSION BREXPIPRAZOLE 2MG TAB TAKE ONE TABLET BY [...] 05/07/2019 MACARIO CARDONA Gastro-esophageal reflux R69. 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 Other pertinent medical hx includes CAD, s/p CO, s/p stents. Poorly controlled DM. Neuropathy, chronic [...] only appeared after the functional strokes. PLAN -neuro consult--follow up with imaging, migraines, possible TD -labs--TSH, B12, folate, Vit D3. -add armodafinil 50mg-->100mg, target mood and cognition. Monitor BP. We discussed starting armodafinil for mood and focus. We reviewed risks including anxiety and insomnia and elevated BP, and will start at a low dose. Vet expressed understanding and would like to try. -continue brexpiprazole 2 mg daily. Monitor TD [...] and updated. /nicole/ SALLY STANFORD PSYCHIATRIST Signed: 10/28/2023 13:50 SALLY STANFORD [facility] [place] [facility]
== END 2024-05-05 08:05 | disposition home or self-care (01) ==
PROVIDERS: PCP Internal Medicine; Visit Provider Urology
DX: Z12.5 Encounter for screening for malignant neoplasm of prostate (principal); N40.1 Benign prostatic hyperplasia with lower urinary tract symptoms; Z86.73 Personal history of transient ischemic attack (TIA), and cerebral infarction without residual deficits; N31.8 Other neuromuscular dysfunction of bladder
CPT/HCPCS: 99214

== ENCOUNTER → 2024-05-05 07:37 | Outpatient (BNVA) | payer OTHER, SELFPAY | PROVIDERS: PCP Internal Medicine; Visit Provider Urology | DX: Z12.5 Encounter for screening for malignant neoplasm of prostate (principal); N40.1 Benign prostatic hyperplasia with lower urinary tract symptoms; N31.8 Other neuromuscular dysfunction of bladder; Z86.73 Personal history of transient ischemic attack (TIA), and cerebral infarction without residual deficits | CPT/HCPCS: 99212 ==

== ENCOUNTER 2024-06-01 09:46 | Outpatient (AMB) | payer MEDICARE, SELFPAY ==
--- NOTE | 2024-06-01 10:06 | A.OFFVIS_ITS ---
Vital Signs 06/01/24 10:07 Height 5 ft 11 in Weight 245 lb 13.047 oz BMI 34.3 BP 140/72 H Blood Pressure Location Lt brachial Position Sitting Pulse 62 Pulse Source Pulse Oximeter Pulse Oximetry (%) 96 Oxygen Delivery Method Room Air Intake Visit Reasons: Obstructive sleep apnea Intake Note: pt is here for follow up of MACKENZIE and states he is feeling good, cannot sleep without it Allergies animal dander Allergy (Intermediate, Verified 06/01/24 10:30) itchy eyes / runny nose metformin [METFORMIN] Allergy (Unknown, Verified 06/01/24 10:30) KIDNEY FAILURE, anaphylaxis Medication List - Last Reconciled 06/01/24 by Garcia Griffiths MD amlodipine 5 mg PO DAILY armodafinil 100 mg PO QAM aspirin 81 mg PO DAILY atorvastatin 80 mg PO BEDTIME brexpiprazole (Rexulti) 1 mg PO DAILY calcium 600 mg PO DAILY@1200 clonidine HCl 0.1 mg PO BEDTIME clopidogrel 75 mg PO DAILY gabapentin 1,200 mg PO TID@0900,1500,2000 [glucose tablets PO] losartan 100 mg PO DAILY magnesium oxide 400 mg PO DAILY@1200 [medical marihuana PO] melatonin 5 mg PO BEDTIME PRN methocarbamol 750 mg PO BID PRN metoprolol tartrate 1 tab PO BID multivitamin 1 tab PO DAILY nitroglycerin 0.4 mg sublingual Q5M omeprazole 40 mg PO BID sucralfate 1 g PO TID tamsulosin (Flomax) 0.4 mg PO BEDTIME trazodone 200 mg PO BEDTIME trospium 20 mg PO BID 30 days Do you need a note to return to daycare/school/sports/work: No HPI HPI Obstructive sleep apnea: Details: This 68 years old gentleman grossly obese with diagnosis of obstructive sleep apnea is here for 6 months follow-up. He uses his CPAP regularly every night and sleeps well up to 8-1/2 hours per night. Without the CPAP he just can not go to sleep. He remains overweight, not able to lose because he can not do much exercise, and can not cut his calories down. He does have chronic back pain which limits his walking. Luckily does not have associated chronic lung disease. 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 at home PTSD (post-traumatic stress disorder) Anxiety and depression White matter disease MACKENZIE on CPAP Sleep apnea Back pain Chronic renal insufficiency Myocardial infarction Neurostimulator device in situ Bleeding ulcer High cholesterol HTN (hypertension) Hypoglycemia Stroke Surgical History Status post panniculectomy History of cardiac catheterization Hx of endoscopy Hx of colonoscopy History of esophagogastroduodenoscopy (EGD) Hx of abdominal surgery Hx of gastric bypass Hx of hand surgery Hx of knee surgery History of colon surgery History of back surgery Hx of hernia repair Hx of heart artery stent Social History Are you a primary care manager to a significant other at home: No Do you presently have visiting nurse or other home services: No Patient Tobacco Use Status: Former Tobacco user Tobacco use type: Cigarette Second Hand Smoke Exposure: No Advance Directives Date on File: 03/14/21 service: No Review of Systems Const All systems reviewed & are unremarkable except as noted in HPI and below Eyes Reports no additional complaints ENT Reports no additional complaints and Reports nasal congestion (Intermittent, mild) Card Denies chest pain, Denies irregular heart rhythm, Denies leg edema, Reports dyspnea (Mild) and Reports other (Has had angioplasty and stent placement and since then feeling better) Resp Reports cough (Mild off and on), Reports dyspnea (Mild) and Denies wheezing GI Reports heartburn (GERD being controlled with omeprazole, and sucralfate) Reports no additional complaints Musc Reports abnormal gait (Uses cane) Skin/Breast Reports system reviewed and no additional complaints, except as documented Neuro Reports abnormal gait (Uses cane) and Reports focal weakness (Has mild residual weakness of the right upper and lower extremity) Psych Reports no additional complaints Aller/Immun Denies wheezing Physical Exam Vital Signs: Last Vital Signs Pulse 62 06/01/24 10:07 BP 140/72 H 06/01/24 10:07 Pulse Ox 96 06/01/24 10:07 Oxygen Delivery Method Room Air 06/01/24 10:07 BMI result Body Mass Index 34.3 Const General: comfortable, no acute distress, alert and awake Orientation/consciousness: patient oriented x3 HEENT Head: Yes normal to inspection General nose exam: No nasal polyps present and No nasal discharge present Face and sinus: Yes sinuses nontender Mouth: oropharynx normal Throat: Yes posterior oropharynx normal Eyes General: appearance normal, both eyes and all related structures Neck Neck: Yes normal visual inspection, Yes no lymphadenopathy, Yes trachea midline and Yes no JVD Thyroid: Thyroid normal Chest Chest palpation & inspection: normal inspection of the chest, normal palpation of entire chest wall and no tenderness Resp Other: Percussion note is resonant, good breath sounds on both sides, no wheezes rhonchi or crepitations . Effort & Inspection: normal respiratory effort Auscultation: clear to auscultation bilaterally Cardio Palpation: normal PMI Rate: regular rate Rhythm: regular rhythm Heart sounds: no gallops and no murmurs GI Palpation (GI): Soft to palpation, nontender, No hepatosplenomegaly present and no masses Auscultation: normal bowel sounds Back/Spine/Pelvis Thoracic/Lumbar Spine: thoracic and lumbar spine normal to inspection and thoraco-lumbar ROM limited Skin General skin exam: no rashes or lesions noted Neuro General: patient oriented x3 and No no focal motor deficits (He does have mild weakness of the right upper and lower extremities. ) Cranial nerves: Yes CN's II-XII intact bilaterally Extrem General: Yes normal to inspection, Yes no clubbing, cyanosis or edema and Yes no calf tenderness Psych Appearance: grossly normal and well kempt Speech and movement: Normal speech and movement present Results Reviewed Results Reviewed: Compliance report for the last 30 nights is reviewed. He has used 30/30 nights,. 100% Average use it per night 8 hours 33 minutes which is excellent. Pressure setting is 19 cm. No significant air leak and residual AHI only 0.6 Assessment & Plan Assessment & Plan (1) Obesity (BMI 35.0-39.9 without comorbidity): Comment: He remains moderately obese with current BMI 34.3 States that he is not able to walk much due to his chronic back pain, He is trying to watch his diet but can not cut down eating any further. Code(s): E66.9 - Obesity, unspecified Category: Medical Plan: Talked about need to do more walking and cut down the calories but as noted above he is not able to do any further. 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 The new CPAP machine working very well. He is very compliant and actually dependent on using CPAP. His compliance is excellent . Code(s): G47.33 - Obstructive sleep apnea (adult) (pediatric); Z99.89 - Dependence on other enabling machines and devices Category: Medical Plan: Commended for good compliance and advised to continue using CPAP every night. Coding Level of Care Code Est Pt Level 3 (55071) Diagnoses Obesity (BMI 35.0-39.9 without comorbidity) E66.9 MACKENZIE on CPAP G47.33; Z99.89
[2024-06-01 10:07] VITALS: BP 140/72; PULSE 62; O2SAT 96; BMI 34.3
--- OUTSIDE RECORDS SUMMARY | 2024-06-01 10:54 | XMS_ITS ---
Author Name [facility] [place] Address [address] [place] [address] Care Team Providers Care Medical Dosimetrist Name Role Phone JOSE MANUEL PITT Primary [...] Burgess's Name Patient's Relationship to Policy Burgess [facility] HEALTH PLAN MEDICARE SUPPLEMEN BETY MEDIC ARE SUPPL EMENT A Feb 18, 2022 SUPP1 [id number] GINA DE LA ROSA PATIENT [facility] MED PREFER/SEN IOR CARE MEDICARE SUPPLEMEN BETY MEDIC ARE SUPPL EMENT A Feb 18, 2021 SUPP1 [id number] GINA DE LA ROSA PATIENT Selected [...] chronic MARIALUISA SALCEDO [facility] [place] [facility] Plan of Treatment: Future Appointments (+ 6 [...] AMBULATORY - PSYCHIATRY [facility] [place] [facility] Nov 13, 2023 09:00 AM AMBULATORY - PSYCHIATRY [facility] [place] [facility] Nov 19, 2023 07:00 AM AMBULATORY - PSYCHIATRY [facility] [place] [facility] Nov 20, 2023 09:00 AM AMBULATORY - PS[facility]CHIATRY [facility] [place] [facility] Nov 27, 2023 09:00 AM AMBULATORY - PS[facility]CHIATRY [facility] [place] [facility] Dec 04, 2023 09:00 AM AMBULATORY - PSYCHIATRY [facility] [place] [facility] Dec 11, 2023 09:00 AM AMBULATORY - PSYCHIATRY [facility] [place] [facility] Dec 16, 2023 09:30 AM AMBULATORY - PSYCHIATRY [facility] [place] [facility] Dec 18, 2023 09:00 AM AMBULATORY - PSYCHIATRY [facility] [place] [facility] Dec 19, 2023 07:30 AM AMBULATORY - MEDICINE [facility] [place] [facility] Dec 23, 2023 07:00 AM AMBULATORY - PSYCHIATRY [facility] [place] [facility] Dec 25, 2023 09:00 AM AMBULATORY - PSYCHIATRY [facility] [place] [facility] Jan 01, 2024 09:00 AM AMBULATORY - PSYCHIATRY [facility] [place] [facility] Jan 08, 2024 09:00 AM AMBULATORY - PSYCHIATRY [facility] [place] [facility] Jan 09, 2024 09:30 AM AMBULATORY - MEDICINE [facility] Jan 14, 2024 07:00 AM AMBULATORY - [place]AT[place] [facility] [place] [facility] Jan 20, 2024 08:30 AM AMBULATORY - [place]UROLOGY [place] [facility] [place] [facility] Jan 22, 2024 09:00 AM AMBULATORY - PS[place]CHIATRY [place] [facility] [place] [facility] Jan 27, 2024 01:30 PM AMBULATORY - PS[place]CHIATRY [place] [facility] [place] [facility] Jan 29, 2024 09:00 AM AMBULAT[facility] Active, Pending, and Scheduled Orders This section includes a listing of several types of active, pending, and scheduled orders, including clinic medications orders, diagnostic test orders, procedure orders and consult orders; where the start date of the order is 45 days before the date of the Encounter or 45 days after the date of theEncounter. The data comes from all [place] treatment facilities. Test Date/Time Test Type Test Details Facility Name Oct 25, 2023 02:36 PM Consult Order COMMUNITY CARE-UROLOGY Cons Real Estate Operations Manager's Choice [facility] [place] [facility] Oct 28, 2023 01:47 PM Consult Order COMMUNITY CARE-NEUROLOGY Cons Real Estate Operations Manager's Choice [facility] Social History: Smoking Status (Most current) and [...] took place. Date/Time Current Smoking Status Comment uNrys millery Apr 15, 2023 07:00 AM VA-TOBACCO FORMER USER [facility] Tobacco Use History This section includes a history of the smoking, or tobacco-related health factors, that were collected on or before the date of the Encounter. The data comes from the [place] facility where the Encounter took place. Date/Time Smoking Status/Tobacco Use Comment F jodie Apr 15, 2023 07:00 AM VA-TOBACCO QUIT 15 YRS OR MORE [facility] [place] [facility] Apr 24, 2022 07:00 AM VA-TOBACCO FORMER USER [facility] Apr 24, 2022 07:00 AM VA-TOBACCO QUIT 15 YRS OR MORE [facility] [place] [facility] Apr 27, 2021 03:00 PM VA-TOBACCO FORMER USER [facility] [place] [facility] Apr 27, 2021 03:00 PM VA-TOBACCO QUIT 15 YRS OR MORE [facility] [place] [facility] Mar 17, 2020 03:00 PM VA-TOBACCO FORMER USER [facility] [place] [facility] Mar 17, 2020 03:00 PM VA-TOBACCO QUIT 15 YRS OR MORE [facility] [place] [facility] Mar 31, 2019 09:04 AM VA-TOBACCO FORMER USER [facility] [place] [facility] Mar 31, 2019 09:04 AM VA-TOBACCO QUIT 15 YRS OR MORE [facility] [place] [facility] Encounter Notes: All associated encounter notes This [...] 9 AM Number of group members: 12 Polarity Tester: Marialuisa Salcedo, [facility] Group began with a introduction that iRest [...] was on the inner resource. engaged with tipple repairer and group members appropriately, participating in the meditation and reflection time. [place] did not endorse SI/HI. 's intention was to relax, ground, and start the day with motivation and focus. DIAGNOSES: Persistent mood disorder, unspecified PTSD, chronic Cognitive Disorder (History of) Cerebral Infarction, Unspecified VA Video Connect (VVC) Standard Documentation VVC Clinician Resources Only: E911 (Emergency Call Relay Center): [phone] National Veterans Crisis Line - 988 then press #1. CLEMENTENehemias Suicide Coordinator [phone], Ext. [phone]; Back-up Ext. [phone] [place] Police, CLEMENTESangeeta Del Cid [phone] Introduction: Visit is being conducted by [place] [employer]. [place] identified with 2 identifiers: [X] Full Name [X] Date of [ ] VA ID Card Emergency Plan: [place] confirmed and/or provided the following information in case of emergency or technology failure. PATIENT PHONE - PHONE NUMBER [CELLULAR] - Is patient phone number correct, if not, enter below: [place]'s phone number: TAJ SAVANNA ESTRELLA [address], [place], [address] [place]'s present location and address for appointment: his home 's emergency contact name and phone number: E-Cont.: JUVENCIO DE LA ROSA Relation Type: UNRELATED FRIEND/OTHER Relation Note: OTHERS [address] [place] [address] [facility] reported that location is private and safe: Yes Informed Consent: [place] informed of the risks and benefits of Telehealth video care. has the right to refuse video services. If refuses video visit, a [id number] visit will be scheduled. verbalized consent for this video visit: Yes [place] provided consent for any other persons present for visit: Yes If yes, who and relationship to patient:group Secure visit: Visit was locked for security and privacy:Yes /nicole/ REBECA CARABALLO Plan Manager Signed: 10/30/2023 10:15 MARIALUISA SALCEDO [place] [facility]TRRuf[facility]
--- OUTSIDE RECORDS SUMMARY | 2024-06-01 10:54 | XMS_ITS ---
Author Name [facility] [place] Address [address] [place] [address] Care Team Providers Care Physician Specialist Name Role Phone JOSE MANUEL PITT [...] Burgess's Name Patient's Relationship to Policy Burgess [facility] HEALTH PLAN MEDICARE SUPPLEMEN BETY MEDIC ARE SUPPL EMENT A Feb 18, 2022 SUPP1 [id number] GINA CISNEROS PATIENT [facility] MED PREFER/SEN IOR CARE MEDICARE SUPPLEMEN BETY MEDIC ARE SUPPL EMENT A Feb 18, 2021 SUPP1 [id number] [phone] GINA CISNEROS PATIENT Selected Encounter This section includes the information on record at NH for the Encounter. Date/Time Encounter Type Encounter Description Reason Pro vider Source Jun 12, 2023 02:02 PM Outpatient Encounter ADMIN PAT ACTIVTIES (MASNONCT) IHE Encounter Template Text not used by [place] Plan of Treatment: Future Appointments (+ 6 months) and Future Tests (+/- 45 days) The Plan of Treatment section includes future care activities for the patient [facility] [place] [facility] This section includes future appointments and future orders which are active, pending or scheduled. Future Appointments This section includes appointments that were scheduled to occur 6 months from the date of the Encounter, up to a maximum of 20 appointments. The data comes from all [place] treatment facilities. Appointment Date/Time Appointment Type Appointme nt Facility Name Jun 13, 2023 10:30 AM AMBULATORY - REHAB MEDICIN E [facility] [place] [facility] July 08, 2023 07:00 AM AMBULATORY - PSYCHIATRY [facility] [place] [facility] Jul 22, 2023 07:00 AM AMBULATORY - PS[facility]CHIATRY [facility] [place] [facility] Jul 22, 2023 08:00 AM AMBULATORY - NEUROLOGY [facility] [place] [facility] Jul 25, 2023 01:30 PM AMBULATORY - PSYCHIATRY [facility] [place] [facility] Jul 29, 2023 07:00 AM AMBULATORY - PSYCHIATRY [facility] [place] [facility] Jul 29, 2023 08:30 AM AMBULATORY - MEDICINE [facility] [place] [facility] Aug 21, 2023 10:00 AM AM[facility]ULATORY - MEDICINE [facility] Sep 02, 2023 07:00 AM AMBULATORY - PSYCHIATRY [facility] [place] [facility] Sep 09, 2023 05:00 PM AMBULATORY - PSYCHIATRY [facility] [place] [facility] Sep 11, 2023 09:00 AM AMBULATORY - PSYCHIATRY [facility] [place] [facility] Sep 19, 2023 01:30 PM AMBULATORY - PSYCHIATRY [facility] [place] [facility] Sep 25, 2023 09:00 AM AMBULATORY - PSYCHIATRY [facility] [place] [facility] Sep 30, 2023 07:00 AM AMBULATORY - PSYCHIATRY [facility] [place] [facility] Oct 02, 2023 09:00 AM AMBULATORY - PSYCHIATRY [facility] [place] [facility] Oct 09, 2023 09:00 AM AMBULATORY - PSYCHIATRY [facility] [place] [facility] Oct 16, 2023 09:00 AM AMBULATORY - PSYCHIATRY [facility] [place] [facility] Oct 23, 2023 09:00 AM AMBULATORY - PSYCHIATRY [facility] [place] [facility] Oct 28, 2023 07:00 AM AMBULATORY - PSYCHIATRY [place] [facility] [place] [facility] Oct 28, 2023 08:00 AM AMBULATORY - NEUROLOGY [place] [facility] [place] [facility] Social History: Smoking Status (Most current) and Tobacco Use (All prior to encounter date) This section includes the most current, and the historical, smoking and tobacco- related health factors from the [place] facility where the Encounter took place. Current Smoking Status This section includes the most current smoking, or tobacco-related health factor, from the [place] facility where the Encounter took place. Date/Time Current Smoking Status Comment Facil ity Apr 15, 2023 07:00 AM VA-TOBACCO FORMER USER [place] [facility] [place] [facility] Tobacco Use History This section includes a history of the smoking, or tobacco-related health factors, that were collected on or before the date of the Encounter. The data comes from the [place] facility where the Encounter took place. Date/Time Smoking Status/Tobacco Use Comment F acility Apr 15, 2023 07:00 AM VA-TOBACCO QUIT 15 YRS OR MORE [facility] [place] [facility] Apr 24, 2022 07:00 AM VA-TOBACCO FORMER USER [facility] [place] [facility] Apr 24, 2022 07:00 AM VA-TOBACCO QUIT 15 YRS OR MORE [facility] [place] [facility] Apr 27, 2021 03:00 PM VA-TOBACCO FORMER USER [facility] [place] [facility] Apr 27, 2021 03:00 PM VA-TOBACCO QUIT 15 YRS OR MORE [facility] [place] [facility] Mar 17, 2020 03:00 PM VA-TOBACCO FORMER USER [facility] [place] [facility] Mar 17, 2020 03:00 PM VA-TOBACCO QUIT 15 YRS OR MORE [facility] [place] [facility] Mar 31, 2019 09:04 AM VA-TOBACCO FORMER USER [facility] [place] [facility] Mar 31, 2019 09:04 AM VA-TOBACCO QUIT 15 YRS OR MORE [facility] [place] [facility] Encounter Notes: All associated encounter [...] COSIGNER: URGENCY: STATUS: COMPLETED Patient presented to [place] pharmacy requesting the below medication/prescription be filled; or the below medication was faxed to [place] pharmacy requesting to be filled for JACOB CISNEROS. THE BELOW MEDICATION(S) ARE NON-FORMULARY == NON-VA PRESCRIPTION DETAILS == Rx written:06/10/23 Medication:MIRABEGRON 25MG Dose/Directions:TAKE 1 TABLET DAILY Quantity:30 Refills:2 Prescriber:DOMINAG DUPREE Practice site:[facility] MARIA FERNANDA: NPI (if available):[id number] == ELIGIBILITY TO FILL NON-VA RX: == [facility] Consult: Yes Type of Service Consult:UROLOGY Medical [...] CC OFFICE RE: Jacob Cisneros (1955) Per [place] formulary Mirabegron may be approved if the [...] denied. Time Spent:15 min /nicole/ DELFIN FLORES [facility] CLINICAL PHARMACIST Signed: 06/12/2023 14:08 DELFIN FLORES [facility]
--- OUTSIDE RECORDS SUMMARY | 2024-06-01 10:54 | XMS_ITS ---
Author Name [facility] [place] [facility] [place] Address [address] [place] [address] Care Team Providers Care Fans Clerk Name Role Phone JOSE MANUEL PITT [...] SUPPL EMENT A Feb 18, 2022 SUPP1 [id number] GINA DE LA ROSA PATIENT [facility] MED PREFER/SEN IOR CARE MEDICARE SUPPLEMEN BETY MEDIC ARE SUPPL EMENT A Feb 18, 2021 SUPP1 [id number] GINA DE LA ROSA PATIENT Selected Encounter This section includes the information on record at [place] for the Encounter. Date/Time Encounter Type Encounter Description Reason Provider Source Jan 08, 2024 09:00 AM [facility] IVNTJ GRP EA [facility] ICD-10-CM F43.12 Post-traumatic stress disorder, chronic MARIALUISA SALCEDO Encounter Template Text not used by [place] Assessments - Encounter Diagnoses This section includes the primary and secondary diagnoses documented for the Encounter. Date/Time Primary/Secondary Diagnosis Diagnosis Name Provider Source Jan 08, 2024 10:38 AM PRIMARY Post-traumatic stress disorder, chronic MARIALUISA SALCEDO [place] [facility] [place] [facility] Plan of Treatment: Future Appointments (+ 6 months) and Future Tests (+/- 45 days) The Plan of Treatment section includes future care activities for the patient from all [place] treatmentfacilities. This section includes future appointments and future orders which are active, pending or scheduled. Future Appointments This section includes appointments that were scheduled to occur 6 months from the date of the Encounter, up to a maximum of 20 appointments. The data comes from all [place] treatment facilities. Appointment Date/Time Appointment Type Appointme nt Facility Name Jan 09, 2024 09:30 AM [facility]ORY - MEDICINE [facility] [place] Jan 14, 2024 07:00 AM [facility]IATRY [facility] [place] [facility] Jan 20, 2024 08:30 AM AMB[facility]ATORY - NEUROLOGY [facility] [place] [facility] Jan 22, 2024 09:00 AM [facility]BULATORY [facility] PS[facility]IATRY [facility] [place] [facility] Jan 27, 2024 01:30 PM AMBULATORY - PS[facility]CHIATRY [facility] [place] [facility] Jan 29, 2024 09:00 AM AMBULATORY - PS[facility]CHIATRY [facility] [place] [facility] Feb 05, 2024 09:00 AM AMBULATORY - PS[facility]CHIATRY [facility] [place] [facility] Feb 10, 2024 07:00 AM AMBULATORY - PS[facility]CHIATRY [facility] [place] [facility] Feb 24, 2024 07:00 AM AMBULATORY - PS[facility]CHIATRY [facility] [place] [facility] Mar 04, 2024 09:00 AM AMBULATORY - PS[facility]CHIATRY [facility] [place] [facility] Mar 11, 2024 09:00 AM AMBULATORY - PS[facility]CHIATRY [facility] [place] [facility] Mar 18, 2024 09:00 AM AMBULATORY - PS[facility]CHIATRY [facility] [place] [facility] Mar 25, 2024 09:00 AM AMBULATORY - PSYCHIATRY [facility] [place] [facility] Mar 30, 2024 07:00 AM AMBULATORY - PS[facility]CHIATRY [facility] [place] [facility] Mar 30, 2024 01:00 PM AMBULATORY - [place]ATRY [place] [facility] [place] [facility] Apr 01, 2024 09:00 AM [facility] [place] [facility] Apr 08, 2024 09:00 AM AMBUL[facility] [place] [facility] Apr 13, 2024 07:00 AM AMBUL[facility] [place] [facility] Apr 15, 2024 09:00 AM AMBULATORY - PS[facility]CHIATRY [facility] [place] [facility] Apr 20, 2024 09:00 AM AMBULATORY - NEUROLOGY [place] [facility] [place] [facility] Lab Results: +/- 30 days of the encounter This section includes the Chemistry and Hematology Lab Results on record with [place] for the patient. Radiology Reports and Pathology Reports are provided separately, in subsequent sections. Lab Results This section contains the Chemistry/Hematology Results that were resulted 30 days before or 30 daysafter the date of the Encounter. Date/Time Source Result Type Result - Unit Interpretation Reference Range Specimen Type Comment Dec 19, 2023 07:55 AM [facility] [place] FOLATE (WROX) SERUM Specimen Type: SERUM No comment entered. Ordering Provider: SALLY PIERRE Report Released Date/Time: Oct 28, 2023 09:59 AM Reporting Lab[facility] [address] [address] Performing Lab: [facility] [address] [facility] [address] FOLATE (WROX) 9.07 ng/mL >5.2 Dec 19, 2023 07:55 AM [facility] [place] TSH SERUM Specimen Type: SERUM No comment entered. Ordering Provider: SALLY PIERRE Report Released Date/Time: Oct 28, 2023 09:59 AM Reporting Lab: [facility] [address] [facility] [address] Performing Lab: [facility] [place] [address] [facility] [address] TSH 1.09 u[IU]/mL 0.35-5.00 Dec 19, 2023 07:55 AM [facility] VITAMIN D (25-OH) SERUM Specimen Type: SERUM No comment entered. Ordering Provider: SALLY PIERRE Report Released Date/Time: Oct 28, 2023 09:59 AM Reporting Lab: [facility] [address] [facility] [address] Performing Lab: [address] [address] VITAMIN D (25-OH) 38 ng/mL 20-50 Dec 19, 2023 07:55 AM [facility] VITAMIN B12 SERUM Specimen Type: SERUM No comment entered. Ordering Provider: SALLY PIERRE Report Released Date/Time: Oct 28, 2023 09:59 AM Reporting Lab: [address] [address] Performing Lab: [address] [address] VITAMIN B12 297 pg/mL 200-900 Dec 19, 2023 07:55 AM [facility] LIPID PANEL FASTING SERUM Specimen Type: SERU M No comment entered. Ordering Provider: SALLY PIERRE Report Released Date/Time: Dec 16, 2023 09:50 AM Reporting Lab: [address] [address] Performing Lab: [address] [address] CHOLESTEROL 113 mg/dL TRIGLYCERIDE 85 mg/dL 0-150 LDL calculated 50 mg/dL 0-129 CHOL/HDL 2.5 HDL CHOLESTEROL 46 mg/dL 40-60 Dec 19, 2023 07:55 AM [facility] HEMOGLOBIN A1C PANEL BLOOD Specimen Type: BLO OD Comment: Values obtained from A1C measurements can vary. For atypical A1C assays, a reported value of 7.0 could actually be between 6.72 and 7.28 if measured by a reference method. A reported value of 9.0 could actually be between 8.73 and 9.27. Ref: http://www.ngsp.org/CAPdata.asp Ordering Provider: SALLY PIERRE Report Released Date/Time: Dec 16, 2023 09:50 AM Reporting Lab: [facility] [address] [facility] [address] Performing Lab: [address] [address] HEMOGLOBIN A1C 5.5 4.0-5.6 Dec 19, 2023 07:55 AM [facility] BASIC METABOLIC PANEL (fasting) SERUM Specime n Type: SERUM No comment entered. Ordering Provider: SALLY PIERRE Report Released Date/Time: Dec 16, 2023 09:50 AM Reporting Lab: [address] [address] Performing Lab: [address] [address] UREA NITROGEN 18 mg/dL 7-25 GLUCOSE 117 [...] and tobacco- related health factors from the [place] facility where the Encounter took place. Current Smoking Status This section includes the most current smoking, or tobacco-related health factor, from the [place] facility where the Encounter took place. Date/Time Current Smoking Status Comment Nurys ok Apr 15, 2023 07:00 AM VA-TOBACCO FORMER USER [facility] Tobacco Use History This section includes a history of the smoking, or tobacco-related health factors, that were collected on or before the date of the Encounter. The data comes from the [place] facility where the Encounter took place. Date/Time Smoking Status/Tobacco Use Comment F acshen Apr 15, 2023 07:00 AM [place]-TO[place] QUIT 15 YRS OR MORE [facility] Apr 24, 2022 07:00 AM VA-TOBACCO FORMER USER [facility] [place] [facility] Apr 24, 2022 07:00 AM VA-TOBACCO QUIT 15 YRS OR MORE [facility] [place] [facility] Apr 27, 2021 03:00 PM VA-TOBACCO FORMER USER [facility] [place] [facility] Apr 27, 2021 03:00 PM VA-TOBACCO QUIT 15 YRS OR MORE [facility] [place] [facility] Mar 17, 2020 03:00 PM VA-TOBACCO FORMER USER [facility] [place] [facility] Mar 17, 2020 03:00 PM VA-TOBACCO QUIT 15 YRS OR MORE [facility] [place] [facility] Mar 31, 2019 09:04 AM VA-TOBACCO FORMER USER [facility] [place] [facility] Mar 31, 2019 09:04 AM VA-TOBACCO QUIT 15 YRS OR MORE [place] [facility] [place] [facility] Encounter Notes: All associated encounter [...] 9 AM Number of group members: 14 Purse Maker: Marialuisa Salcedo [facility] began with a introduction that [...] on body and breath sensing. engaged with mangle catcher and group members appropriately, participating in the meditation and reflection time. did not endorse SI/HI. 's intention was to feel calm and centered. DIAGNOSES: Persistent mood disorder, unspecified PTSD, chronic Cognitive Disorder (History of) Cerebral Infarction, Unspecified [place] Video Connect (VVC) Standard Documentation [facility] Clinician Resources Only: E911 (Emergency Call Relay Center): [phone] National Veterans Crisis Line - 988 then press #1. CWNehemias Suicide Coordinator [phone], Ext. [phone]; Back-up Ext. [phone] [place] Police, CLEMENTENehemias, Sangeeta [phone] Introduction: Visit is being conducted by [place] [employer] Connect. Simla identified with 2 identifiers: [X] Full Name [X] Date of [ ] VA ID Card Emergency Plan: Simla confirmed and/or provided the following information in case of emergency or technology failure. PATIENT PHONE - PHONE NUMBER [CELLULAR] - Is patient phone number correct, if not, enter below: Simla's phone number: TAJ SAVANNAMARTINA DE LA ROSA [address], [place], [address] 's present location and address for appointment: his home Simla's emergency contact name and phone number: E-Cont.: ESTRELLAJUVENCIO Relation Type: UNRELATED FRIEND/OTHER Relation Note: OTHERS [address] [place] [address] [facility] Simla reported that location is private and safe: Yes Informed Consent: informed of the risks and benefits of Telehealth video care. has the right to refuse video services. If refuses video visit, a [id number] visit will be scheduled. Simla verbalized consent for this video visit: Yes provided consent for any other persons present for visit: Yes If yes, who and relationship to patient:group Secure visit: Visit was locked for security and privacy:Yes /nicole/ REBECA CARABALLO Truck Spotter Signed: 01/08/2024 10:50 MARIALUISA SALCEDO [facility] [place]
--- OUTSIDE RECORDS SUMMARY | 2024-06-01 10:54 | XMS_ITS | Encounter Summary ---
Author Name [facility] [place] [facility] [place] Organization [facility] [place] Address [address] [place] [address] Care Team Providers Care Automatic Pattern Edger Name Role Phone JOSE MANUEL PITT Primary [...] SUPPL EMENT A Feb 18, 2022 SUPP1 [id number] GINA DE LA ROSA PATIENT [facility] MED PREFER/SEN IOR CARE MEDICARE SUPPLEMEN EBTY MEDIC ARE SUPPL EMENT A Feb 18, 2021 SUPP1 [id number] [phone] GINA DE LA ROSA PATIENT Selected Encounter This section includes the information on record at [place] for the Encounter. Date/Time Encounter Type Encounter [...] Persistent mood [affective] disorder, unspecified MOISES PADILLA [place] [facility] [place] [facility] Feb 10, 2024 07:53 AM SECONDARY Cerebral infarction, unspecified MOISES PADILLA [place] [facility] [place] [facility] Feb 10, 2024 07:53 AM SECONDARY Post-traumatic stress disorder, chronic MOISES PADILLA [place] [facility] [place] [facility] Feb 10, 2024 07:53 AM SECONDARY Unsp symptoms and signs w cognitive functions and awareness MOISES PADILLA [place] [facility] [place] [facility] Plan of Treatment: Future Appointments (+ 6 months) and Future Tests (+/- 45 days) The Plan of Treatment section includes future care activities for the patient from all [place] treatmentfacilities. This section includes future appointments and future orders which are active, pending or scheduled. Future Appointments This section includes appointments that were scheduled to occur 6 months from the date of the Encounter, up to a maximum of 20 appointments. The data comes from all [place] treatment facilities. Appointment Date/Time Appointment Type Appointme nt Facility Name Feb 24, 2024 07:00 AM AMBULATORY - PSYCHIATRY [place] [facility] [place] [facility] Mar 04, 2024 09:00 AM AMBULATORY - PSYCHIATRY [facility] [place] [facility] Mar 11, 2024 09:00 AM AMBULATORY - PSYCHIATRY [facility] [place] [facility] Mar 18, 2024 09:00 AM AMBULATORY - PSYCHIATRY [facility] [place] [facility] Mar 25, 2024 09:00 AM AMBULATORY - PSYCHIATRY [facility] [place] [facility] Mar 30, 2024 07:00 AM AMBULATORY - PSYCHIATRY [facility] [place] [facility] Mar 30, 2024 01:00 PM AMBULATORY - PSYCHIATRY [facility] [place] [facility] Apr 01, 2024 09:00 AM AMBULATORY - PSYCHIATRY [facility] [place] [facility] Apr 08, 2024 09:00 AM AMBULATORY - PSYCHIATRY [facility] [place] [facility] Apr 13, 2024 07:00 AM AMBULATORY - PSYCHIATRY [facility] [place] [facility] Apr 15, 2024 09:00 AM AMBULATORY - PSYCHIATRY [facility] [place] [facility] Apr 20, 2024 09:00 AM [...] 14, 2024 09:30 [facility] May 20, 2024 09:00 AM AMBULATORY - PSYCHIATRY [facility] [place] [facility] May 21, 2024 02:00 PM AMBULATORY - MEDICINE [facility] [place] [facility] Social History: Smoking Status (Most [...] 15, 2023 07:00 AM VA-TOBACCO FORMER USER ID [facility] [place] [facility] Tobacco Use History This section includes a history of the smoking, or tobacco-related health factors, that were collected on or before the date of the Encounter. The data comes from the [place] facility where the Encounter took place. Date/Time [...] AM VA-TOBACCO QUIT 15 YRS OR MORE ID [facility] [place] [facility] Encounter Notes: All associated encounter notes This section contains the clinical notes associated to the Encounter. Date/Time Encounter Note(s) Provider Source Feb 10, 2024 06:41 AM PSYCHOLOGY NOTE: LOCAL TITLE: PSYCHOLOGY NOTE STANDARD TITLE: PSYCHOLOGY NOTE DATE OF NOTE: FEB 10, 2024@06:41 ENTRY DATE: FEB 10, 2024@06:41:14 AUTHOR: MOISES PADILLA COSIGNER: URGENCY: STATUS: COMPLETED Patton was identified by Visual recognition and patient name. VISIT DURATION 45 minutes DIAGNOSES: Persistent mood disorder, unspecified PTSD, chronic Cognitive Disorder (History of) Cerebral Infarction, Unspecified PRESENTING PROBLEMS: presented on time and we resumed treatment as usual, reviewing stress and mood management as well as recent psychosocial stressors. SESSION FOCUS: Patton shared that his upbeat mood from our last session has since reduced and he has been feeling more depressed. He declined significant depressed symptoms as he had prior to the medication addition, but did endorse low mood, anhedonia, lethargy, and amotivation. He explained that they haven't gotten into the [place] spirit this year like they have in years past. To add to the low mood and stress, explained that his Carlyn was recently informed that she has several unknown lumps near in lymph nodes. This was discovered when exploring a different issue and since then she is been worried that it may be cancer. explained that she has gotten several biopsies [...] buying a gift for each other for [place]. liked the idea and may ask his [...] Staff Psychologist Signed: 02/10/2024 07:54 MOISES PADILLA [facility]
--- OUTSIDE RECORDS SUMMARY | 2024-06-01 10:54 | XMS_ITS ---
Author Name [facility] [place] Address [address] [place] [address] Care Team Providers Care Stave Cutter Name Role Phone JOSE MANUEL PITT Primary [...] SUPPL EMENT A Feb 18, 2022 SUPP1 [id number] GINA DE LA ROSA PATIENT [facility] PREFER/SEN IOR CARE MEDICARE SUPPLEMEN BETY MEDIC ARE SUPPL EMENT A Feb 18, 2021 SUPP1 [id number] GINA DE LA ROSA PATIENT Selected Encounter This section includes the information on record at [place] for the Encounter. Date/Time Encounter Type Encounter Description Reason Provider Source Apr 20, 2024 09:00 AM OFFICE O/P EST MOD 30 MIN NEUROLOGY ICD-10-CM G43.909 Migraine, unsp, not intractable, without status migrainosus CHANDU CARRILLO Encounter Template Text not used by [place] Assessments - Encounter Diagnoses This section includes the primary and secondary diagnoses documented for the Encounter. Date/Time Primary/Secondary Diagnosis Diagnosis Name Provider Source May 10, 2024 01:29 PM PRIMARY Migraine, unsp, not intractable, without status migrainosus CHANDU CARRILLO [place] [facility] [place] [facility] Plan of Treatment: Future Appointments [...] 14, 2024 09:30 AM AMBULATORY - MEDICINE [facility] May 20, 2024 09:00 AM AMBULATORY [...] 06, 2024 07:00 AM [facility] Jul 20, 2024 09:00 AM [facility] Aug 03, 2024 08:30 AM [facility] Sep 17, 2024 09:30 AM AMBULATORY - MEDICINE [facility] Active, Pending, and Scheduled Orders This [...] X1 SCREEN (MFP ONLY) STOOL FECES SP [facility] Vital Signs: All taken on the encounter date This section contains inpatient and outpatient Vital Signs collected on the date of the Encounter. Date/Time Temperature Pulse Blood Pressure Respiratory Rate SP02 Pain Height Weight Body Mass Index Source Apr 20, 2024 09:04 AM 97.2 68 158/77 18 96 6 245 34 [facility] Social History: Smoking Status (Most [...] 07:00 AM VA-TOBACCO USE FOR TYRONE CIGARETTES [facility] Tobacco Use History This section includes a history of the smoking, or tobacco-related health factors, that were collected on or before the date of the Encounter. The data comes from the [place] facility where the Encounter took place. Date/Time Smoking Status/Tobacco Use Comment F acility Mar 30, 2024 07:00 AM VA-TOBACCO USE FOR TYRONE OTHER TYPE [facility] Apr 15, 2023 07:00 AM VA-TOBACCO FORMER USER [facility] [place] [facility] Apr 15, 2023 07:00 AM VA-TOBACCO QUIT 15 YRS OR MORE [facility] [place] [facility] Apr 24, 2022 07:00 AM VA-TOBACCO FORMER USER [facility] [place] [facility] Apr 24, 2022 07:00 AM [...] [facility] [place] [facility] Encounter Notes: All associated encounter [...] IDENTIFICATION CONFIRMED BY ASSISTING STAFF MEMBER: (X) [place] stating full name (X) stating full SS# (X) [place] stating PROCEDURE NOTE Yes: POST PROCEDURE PAIN Yes: Pain 1-10:0 MEDICATION RECONCILATION REMINDER DONE Yes DISCHARGE INSTRUCTIONS OUTPATIENT NOTE PRINTED Yes Assessment/Plan: Pt w/chronic migraines, got botox today as per FDA protocol. Pt tolerated procedure well. Pt will RTC in 3 months for next series of botox injx. Chandu Carrillo MD Staff Neurologist [facility] PROCEDURE NOTE PROCEDURE; Botulinum Toxin Injections [...] Face/head Procerus Midline 1 site, 5U 5U Zoo Caretaker R+L 1 site per side, 5U each 10U Frontalis R+L 2 sites per side, 5U each 20U Temporalis R+L 2 sites per side, 10U each 40U Occipitalis R+L 2 site per side, 10U each 40U Splenius Capitus R+L 1 site per side, 10U each 20U Trapezius R+L 2 sites per side, 5U each 20U Total Dose 155U Outpt. Medication Reconciliation: Medication Rec per Cement Crusher Operator Nursing note on Apr@09:02. NO DISCREPANCIES FOUND [...] MD PHYSICIAN Signed: 04/20/2024 09:18 CHANDU CARRILLO [place] [facility]
--- OUTSIDE RECORDS SUMMARY | 2024-06-01 10:54 | XMS_ITS | Encounter Summary ---
Author Name [facility] [place] [facility] [place] Address [address] [place] [address] Care Team Providers Care Traffic Administrator Name Role Phone JOSE MANUEL PITT Primary [...] SUPPL EMENT A Feb 18, 2022 SUPP1 [id number] [phone] GINA DE LA ROSA PATIENT [facility] MED PREFER/SEN IOR CARE MEDICARE SUPPLEMEN BETY MEDIC ARE SUPPL EMENT A Feb 18, 2021 SUPP1 [id number] [phone] GINA DE LA ROSA PATIENT Selected Encounter This section includes the information on record at NH for the Encounter. Date/Time Encounter Type Encounter Description Reason Provider Source Dec 19, 2023 07:30 AM COMPRE OPH EXAM EST PT 1/> OPTOMETRY ICD-10-CM E11.9 Type 2 diabetes mellitus without complications WON QUEVEDO Encounter Template Text not used by NH Assessments - Encounter Diagnoses This section includes the primary and secondary diagnoses documented for the Encounter. 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, left eye WON QUEVEDO [facility] Mar 27, 2024 02:09 PM SECONDARY Strabismic amblyopia, left eye WON QUEVEDO [facility] Plan of Treatment: Future Appointments (+ [...] AMBULATORY - PSYCHIATRY [facility] Dec 25, 2023 09:00 AM AMBULATORY [facility] PS[facility]AT[facility] Jan 01, 2024 09:00 AM [facility]BULAT[facility] Jan 08, 2024 09:00 AM [facility]BULAT[facility] PS[facility]AT[facility] Jan 09, 2024 09:30 AM AMBULATORY - MEDICINE [facility] Jan 14, 2024 07:00 AM AMBULATORY [facility] PS[facility]IATRY [facility] Jan 20, 2024 08:30 AM AMBULATORY - NEUROLOGY [facility] Jan 22, 2024 09:00 AM AMBULATORY - PS[facility]IATRY [facility] Jan 27, 2024 01:30 PM AMBULATORY - PS[facility]IATRY [facility] Jan 29, 2024 09:00 AM AMBUL[facility] Feb 05, 2024 09:00 AM AMBULATORY - PS[facility]IATRY [facility] Feb 10, 2024 07:00 AM AMBULATORY [...] AMBULATORY - PSYCHIATRY [facility] Lab Results: +/- 30 days of the encounter This section includes the Chemistry and Hematology Lab Results on record with NH for the patient. Radiology Reports and Pathology Reports are provided separately, in subsequent sections. Lab Results This section contains the Chemistry/Hematology Results that were resulted 30 days before or 30 daysafter the date of the Encounter. Date/Time Source Result Type Result - Unit Interpretation Reference Range Specimen Type Comment Dec 19, 2023 07:55 AM [employer] [facility] FOLATE (WROX) SERUM Specimen Type: SERUM No comment entered. Ordering Provider: SALLY PIERRE Report Released Date/Time: Oct 28, 2023 09:59 AM Reporting Lab: [facility] [address] [address] Performing Lab: [facility] [address] [address] FOLATE (WROX) 9.07 ng/mL >5.2 Dec 19, 2023 07:55 AM [employer] [facility] TSH SERUM Specimen Type: SERUM No comment entered. Ordering Provider: SALLY PIERRE Report Released Date/Time: Oct 28, 2023 09:59 AM Reporting Lab: [facility] [address] [facility] [address] Performing Lab: [facility] [address] [address] TSH 1.09 u[IU]/mL 0.35-5.00 Dec 19, 2023 07:55 AM [facility] VITAMIN D (25-OH) SERUM Specimen Type: SERUM No comment entered. Ordering Provider: SALLY PIERRE Report Released Date/Time: Oct 28, 2023 09:59 AM Reporting [facility]: [facility] [address] [facility] [address] Performing Lab: [facility] [address] [address] VITAMIN D (25-OH) 38 ng/mL 20-50 Dec 19, 2023 07:55 AM [facility] VITAMIN B12 SERUM Specimen Type: SERUM No comment entered. Ordering Provider: SALLY PIERRE Report Released Date/Time: Oct 28, 2023 09:59 AM Reporting Lab: [facility] [address] [facility] [address] Performing Lab: [facility] [address] [address] VITAMIN B12 297 pg/mL 200-900 Dec 19, 2023 07:55 AM [facility] HEMOGLOBIN A1C PANEL BLOOD Specimen Type: BLO [...] Dec 16, 2023 09:50 AM Reporting Lab: [address] [address] Performing Lab: [facility] [address] [address] HEMOGLOBIN A1C 5.5 4.0-5.6 Dec 19, 2023 07:55 AM [facility] LIPID PANEL FASTING SERUM Specimen Type: SERU M No comment entered. Ordering Provider: SALLY PIERRE Report Released Date/Time: Dec 16, 2023 09:50 AM Reporting Lab: [address] [address] Performing Lab: [address] [address] CHOLESTEROL 113 mg/dL TRIGLYCERIDE 85 mg/dL 0-150 LDL calculated 50 mg/dL 0-129 CHOL/HDL 2.5 HDL CHOLESTEROL 46 mg/dL 40-60 Dec 19, 2023 07:55 AM [facility] BASIC METABOLIC PANEL (fasting) SERUM Specime n Type: SERUM No comment entered. Ordering Provider: SALLY PIERRE Report Released Date/Time: Dec 16, 2023 09:50 AM Reporting Lab: [address] [address] Performing Lab: [address] [address] UREA NITROGEN 18 mg/dL 7-25 GLUCOSE 117 [...] 15, 2023 07:00 AM VA-TOBACCO FORMER USER [facility] Tobacco Use History This section includes a history of the smoking, or tobacco-related health factors, that were collected on or before the date of the Encounter. The data comes from the NH facility where the Encounter took place. Date/Time Smoking Status/Tobacco Use Comment F acility Apr 15, 2023 07:00 AM VA-TOBACCO QUIT 15 YRS OR MORE [facility] Apr 24, 2022 07:00 AM VA-TOBACCO FORMER USER [facility] Apr 24, 2022 07:00 AM VA-TOBACCO QUIT 15 YRS OR MORE [facility] Apr 27, 2021 03:00 PM VA-TOBACCO FORMER USER [facility] Apr 27, 2021 03:00 PM VA-TOBACCO QUIT 15 YRS OR MORE [facility] Mar 17, 2020 03:00 PM VA-TOBACCO FORMER USER [facility] Mar 17, 2020 03:00 PM VA-TOBACCO QUIT 15 YRS OR MORE [facility] Mar 31, 2019 09:04 AM VA-TOBACCO FORMER USER [facility] Mar 31, 2019 09:04 AM VA-TOBACCO QUIT 15 YRS OR MORE [facility] Encounter Notes: All associated encounter notes [...] Remote Allergy/ADR Data available for this patient [facility] Med Recon [facility] (Tool #1) INCLUDED IN THIS LIST: Alphabetical list of active outpatient prescriptions dispensed from this NH (local) and dispensed from another NH or [facility] facility (remote) as well as inpatient orders (local pending and active), local clinic medications, locally documented non-VA medications, and local prescriptions that have or been discontinued in the past 90 days. Non-VA Meds Last Documented On: Jul 29, 2023 NOTE The display of VA prescriptions dispensed from another NH or [facility] facility (remote) is limited to active outpatient prescription entries matched to National Drug File at the originating site and may not include some items such as investigational drugs, compounds, etc. NOT INCLUDED IN THIS LIST: Medications self-entered by the patient into personal health records (i.e. [employer]) are NOT included in this list. Non-VA medications documented outside this NH, remote inpatient orders (regardless of status) and [...] FOR DRY IRRITATED SKIN UNDER OCCLUSION Rx# [id number] Last Released: 08/23/23 Qty/Days Supply: 240/60 Rx Expiration Date: 08/21/24 Refills Remainin Indication: FOR DRY SKIN OUTPT ARMODAFINIL 50MG TAB (Status = Discontinued) TAKE ONE TABLET BY MOUTH EVERY MORNING FOR 4 DAYS, THEN TAKE TWO TABLETS EVERY MORNING Rx# [id number] Last Released: 10/28/23 Qty/Days Supply: 5630 Rx Expiration Date: 11/27/23 Refills Remainin Indication: TO IMPROVE WAKEFULNESS OUTPT ARMODAFINIL 50MG TAB (Status = Discontinued) TAKE TWO TABLETS BY MOUTH EVERY MORNING TO IMPROVE WAKEFULNESS Rx# [id number] Last Released: 11/26/23 Qty/Days Supply: 6030 Rx Expiration Date: 05/27/24 Refills Remainin Indication: TO IMPROVE WAKEFULNESS OUTPT ARMODAFINIL 50MG TAB (Status = Active/Suspended) TAKE TWO TABLETS BY MOUTH EVERY MORNING Rx# [id number] Last Released: Qty/Days Supply: 60 Rx Expiration Date: 06/17/24 Refills Remainin Indication: TO IMPROVE WAKEFULNESS Non-VA ATORVASTATIN CALCIUM 80MG TAB TAKE ONE TABLET BY MOUTH ONCE DAILY Medication prescribed by Non-VA provider. per neurology notes 12/29/2018 - OUTPT BREXPIPRAZOLE 1MG TAB (Status = Active) TAKE ONE TABLET BY MOUTH ONCE DAILY Rx# [id number] Last Released: 12/18/23 Qty/Days Supply: 9090 Rx Expiration Date: 12/16/24 Refills Remainin Indication: MOOD OUTPT BREXPIPRAZOLE 2MG TAB (Status = Discontinued) TAKE ONE TABLET BY MOUTH ONCE DAILY FOR MOOD DOSE INCREASE Rx# [id number] Last Released: 09/23/23 Qty/Days Supply: 90 Rx Expiration Date: 09/19/24 Refills Remainin Indication: MOOD OUTPT CLONIDINE HCL 0.1MG TAB (Status = Discontinued) TAKE ONE TABLET BY MOUTH AT BEDTIME FOR INSOMNIA Rx# [id number] Last Released: 09/02/23 Qty/Days Supply: 9090 Rx Expiration Date: 05/23/24 Refills Remainin Indication: INSOMNIA OUTPT CLONIDINE HCL 0.1MG TAB (Status = Active) TAKE ONE TABLET BY MOUTH AT BEDTIME FOR INSOMNIA Rx# [id number] Last Released: 11/26/23 Qty/Days Supply: 90/90 Rx [...] FOR 12 HOURS, THEN REMOVE PATCH) Rx# [id number] Last Released: 07/30/23 Qty/Days Supply: Rx Expiration [...] ONE TABLET BY MOUTH ONCE DAILY Rx# [id number] Last Released: Qty/Days Supply: Rx Expiration Date: 10/23/24 Refills Remainin Non-VA OMEPRAZOLE 20MG EC CAP TAKE 2 CAPSULES BY MOUTH ONCE DAILY Medication prescribed by Non-VA provider. per neurology notes 12/29/2018 - OUTPT ONABOTULINUMTOXINA 200 UNIT/FRANCISCO J INJ (Status = Active) INJECT DIRECTED INTRAMUSCULARLY EVERY THREE MONTHS FOR MIGRAINE HEADACHES Rx# [id number] Last Released: 10/07/23 Qty/Days Supply: Rx Expiration [...] BY MOUTH AT BEDTIME FOR INSOMNIA Rx# [id number] Last Released: 09/30/23 Qty/Days Supply: Rx Expiration Date: 05/23/24 Refills Remainin Indication: INSOMNIA OUTPT TRAZODONE HCL 100MG TAB (Status = Active) TAKE TWO TABLETS BY MOUTH AT BEDTIME FOR INSOMNIA Rx# [id number] Last Released: 12/11/23 Qty/Days Supply: 180 Rx Expiration Date: 11/25/24 Refills Remainin Indication: INSOMNIA OUTPT TROSPIUM CL 20MG TAB (Status = Discontinued) TAKE ONE TABLET BY MOUTH TWICE DAILY ON AN EMPTY STOMACH Rx# [id number] Last Released: 09/24/23 Qty/Days Supply: 60 Rx Expiration Date: 08/23/24 Refills Remainin OUTPT TROSPIUM CL 20MG TAB (Status = Active) TAKE ONE TABLET BY MOUTH TWICE DAILY ON AN EMPTY STOMACH Rx# [id number] Last Released: 11/26/23 Qty/Days Supply: 60 Rx Expiration Date: 10/28/24 Refills Remainin SUPPLIES Declines printed copy of medication list now. /nicole/ Dutch Quevedo OD CHIEF OF OPTOMETRY Signed: 12/19/2023 08:19 [facility]
--- OUTSIDE RECORDS SUMMARY | 2024-06-01 10:55 | XMS_ITS ---
Author Name [facility] Organization [facility] [place] [place] Address [address] [place] [address] Care Team Providers Care Production Control Specialist Name Role Phone JOSE MANUEL PITT [...] Burgess's Name Patient's Relationship to Policy Burgess [facility] HEALTH PLAN MEDICARE SUPPLEMEN BETY MEDIC ARE SUPPL EMENT A Feb 18, 2022 SUPP1 [id number] GINA DE LA ROSA PATIENT [facility] MED PREFER/SEN IOR CARE MEDICARE SUPPLEMEN BETY MEDIC ARE SUPPL EMENT A Feb 18, 2021 SUPP1 [id number] GINA DE LA ROAS PATIENT Selected Encounter This section includes the information on record at NH for the Encounter. Date/Time Encounter Type Encounter Description Reason Pro vider Source May 13, 2024 09:00 AM [facility] Encounter Template Text not used by NH [...] 20 appointments. The data comes from all [facility]. Appointment Date/Time Appointment Type Appointme nt Facility Name May 14, 2024 09:30 AM AMBULATORY - MEDICINE [facility] May 20, 2024 09:00 AM AMBULATORY - PS[facility]CHIATRY [facility] [place] [facility] May 21, 2024 02:00 PM AMBULATORY - MEDICINE [facility] [place] [facility] May 25, 2024 07:00 AM AMBULATORY - PSYCHIATRY [facility] [place] [facility] Jun 01, 2024 01:00 PM AMBULATORY - PSYCHIATRY [facility] [place] [facility] Jun 03, 2024 09:00 AM AMBULATORY - PSYCHIATRY [facility] [place] [facility] Jun 09, 2024 07:00 AM AMBULATORY - PSYCHIATRY [facility] [place] [facility] Jun 10, 2024 09:00 AM AMBULATORY - PSYCHIATRY [facility] [place] [facility] June 22, 2024 07:00 AM AMBULATORY - PSYCHIATRY [facility] [place] [facility] July 06, 2024 07:00 AM AMBULATORY - PSYCHIATRY [facility] [place] [facility] Jul 20, 2024 09:00 AM AMBULATORY - NEUROLOGY [facility] [place] [facility] Aug 03, 2024 08:30 AM AMBULATORY - MEDICINE [facility] [place] [facility] Sep 17, 2024 09:30 AM AMBULATORY - MEDICINE [facility] Active, Pending, and Scheduled Orders This section includes a listing of several types of active, pending, and scheduled orders, including clinic medications orders, diagnostic test orders, procedure orders and consult orders; where the start date of the order is 45 days before the date of the Encounter or 45 days after the date of theEncounter. The data comes from all [facility]. Test Date/Time Test Type Test Details Facility Name Apr 27, 2024 12:00 AM Laboratory - Chemi stry Order OCCULT BLOOD FIT X1 SCREEN (MFP ONLY) STOOL FECES SP [facility] [place] [facility] Social [...] Date/Time Current Smoking Status Comment Nurys ity Mar 30, 2024 07:00 AM VA-TOBACCO USE FOR TYRONE OTHER TYPE [facility] [place] [facility] Tobacco Use History This section includes a history of the smoking, or tobacco-related health factors, that were collected on or before the date of the Encounter. The data comes from the [place] facility where the Encounter took place. Date/Time Smoking Status/Tobacco Use Comment F acshen Mar 30, 2024 07:00 AM VA-TOBACCO USE FOR TYRONE OTHER TYPE [facility] [place] [facility] Apr 15, 2023 07:00 AM VA-TOBACCO FORMER USER [facility] [place] [facility] Apr 15, 2023 07:00 AM VA-TOBACCO [...] Date/Time Encounter Note(s) Provider Source May 13, 2024 03:05 PM ADMINISTRATIVE NOTE: LOCAL TITLE: ADMINISTRATIVE NOTE STANDARD TITLE: ADMINISTRATIVE NOTE DATE OF NOTE: MAY 13, 2024@15:05 ENTRY DATE: MAY 13, 2024@15:06:02 AUTHOR: YARELY WIGGINS EXP COSIGNER: URGENCY: STATUS: COMPLETED [facility] spoke with [place] and his , they mentioned they told provider that they wouldn't be in group last week and this week due to 's apointments for 's . and were given direct contact information to call [facility] when they have questions about scheduling in the future. /nicole/ YARELY WIGGINS [employer] Signed: 05/13/2024 15:07 Receipt Acknowledged By: 05/14/2024 13:47 /es/ ANCELMO SALCEDO [facility] Irrigation Pump Installer YARELY WIGGINS [facility]
--- OUTSIDE RECORDS SUMMARY | 2024-06-01 10:55 | XMS_ITS | Encounter Summary ---
Author Name [facility] [place] [facility] Address [address] [place] [address] Care Team Providers Care Chief Nurse Executive Name Role Phone JOSE MANUEL PITT [...] Burgess's Name Patient's Relationship to Policy Burgess [facility] PLAN MEDICARE SUPPLEMEN BETY MEDIC ARE SUPPL EMENT A Feb 18, 2022 SUPP1 [id number] GINA [place] PATIENT [facility] MED PREFER/SEN IOR CARE MEDICARE SUPPLEMEN BETY MEDIC ARE SUPPL EMENT A Feb 18, 2021 SUPP1 [id number] GINA DE [place] ROSA PATIENT Selected Encounter This section includes the information on record at [place] for the Encounter. Date/Time Encounter Type Encounter Description Reason Provider Source Mar 25, 2024 09:00 AM STRESS MG[facility] ICD-10-CM F34.9 Persistent mood [affective] disorder, unspecified MARIALUISA SALCEDO Encounter Template Text not used by [place] Assessments - Encounter Diagnoses This section includes the primary and secondary diagnoses documented for the Encounter. Date/Time Primary/Secondary Diagnosis Diagnosis Name Provider Source Mar 25, 2024 10:33 AM PRIMARY Persistent mood [affective] disorder, unspecified MARIALUISA SALCEDO [facility] [place] [facility] Mar 25, 2024 10:33 AM SECONDARY Post-traumatic stress disorder, chronic MARIALUISA SALCEDO [facility] [place] [facility] Plan of Treatment: Future Appointments (+ 6 months) and Future Tests (+/- 45 days) The Plan of Treatment section includes future care activities for the patient from all [place] [facility]. This section includes future appointments and future orders which are active, pending or scheduled. Future Appointments This section includes appointments that were scheduled to occur 6 months from the date of the Encounter, up to a maximum of 20 appointments. The data comes from all [place] treatment facilities. Appointment Date/Time Appointment Type Appointme nt Facility Name Mar 30, 2024 07:00 AM AMBULATORY - PS[facility]IATRY [facility] [place] [facility] Mar 30, 2024 01:00 PM AMBULATORY - PS[facility]IATRY [facility] [place] [facility] Apr 01, 2024 09:00 AM AMBULATORY - PS[facility]CHIATRY [facility] [place] [facility] Apr 08, 2024 09:00 AM AMBULATORY - PS[facility]CHIATRY [facility] [place] [facility] Apr 13, 2024 07:00 AM AMBULATORY - PS[facility]IATRY [facility] [place] [facility] Apr 15, 2024 09:00 AM AMBULATORY - PS[facility]IATRY [facility] [place] [facility] Apr 20, 2024 09:00 AM AMBULATORY - NEUROLOGY [facility] [place] [facility] Apr 22, 2024 09:00 AM AMBULATORY - PS[facility]IATRY [facility] [place] [facility] Apr 29, 2024 09:00 AM AMBULATORY - PS[facility]IATRY [facility] [place] [facility] May 04, 2024 07:00 AM AMBULATORY - PS[facility]CHIAT[facility] [place] [facility] May 04, 2024 10:15 AM AMBULATORY [facility] MEDICINE [facility] [place] [facility] May 06, 2024 09:00 AM AMBULATORY - PS[facility]CHIATRY [facility] [place] [facility] May 14, 2024 09:30 AM AMBULATORY - MEDICINE [facility] May 20, 2024 09:00 AM AMBULATORY - PSYCHIATRY [facility] [place] [facility] May 21, 2024 02:00 PM AMBULATORY - MEDICINE [facility] [place] [facility] May 25, 2024 07:00 AM AMBULATORY - PSYCHIATRY [facility] [place] [facility] Jun 01, 2024 01:00 PM AMBULATORY - PSYCHIATRY [facility] [place] [facility] Jun 03, 2024 09:00 AM AMBULATORY - PSYCHIATRY [facility] [place] [facility] Jun 09, 2024 07:00 AM AMBULATORY - PS[facility]CHIATRY [facility] [place] [facility] Jun 10, 2024 09:00 AM [facility] Active, Pending, and Scheduled Orders This section includes a listing of several types of active, pending, and scheduled orders, including clinic medications orders, diagnostic test orders, procedure orders and consult orders; where the start date of the order is 45 days before the date of the Encounter or 45 days after the date of theEncounter. The data comes from all [place] treatment facilities. Test Date/Time Test Type Test Details Facility Name Apr 27, 2024 12:00 AM Laboratory - Chemi stry Order OCCULT BLOOD FIT X1 SCREEN (MFP ONLY) STOOL FECES SP [facility] Social History: Smoking Status (Most current) and Tobacco Use (All prior to encounter date) This section includes the most current, and the historical, smoking and tobacco- related health factors from the [place] facility where the Encounter took place. Current Smoking Status This section includes the most current smoking, or tobacco-related health factor, from the [place] facility where the Encounter took place. Date/Time Current Smoking Status Comment Facil ity Apr 15, 2023 07:00 AM VA-TOBACCO FORMER USER [facility] Tobacco Use History This section includes a history of the smoking, or tobacco-related health factors, that were collected on or before the date of the Encounter. The data comes from the [place] facility where the Encounter took place. Date/Time Smoking Status/Tobacco Use Comment F acility Apr 15, 2023 07:00 AM [place]-TOBACCO QUIT [facility] Apr 24, 2022 07:00 AM VA-TOBACCO FORMER USER [facility] [place] [facility] Apr 24, 2022 07:00 AM VA-TOBACCO QUIT 15 YRS OR MORE [facility] [place] [facility] Apr 27, 2021 03:00 PM VA-TOBACCO FORMER USER [facility] [place] [facility] Apr 27, 2021 03:00 PM VA-TOBACCO QUIT 15 YRS OR MORE [facility] [place] [facility] Mar 17, 2020 03:00 PM VA-TOBACCO FORMER USER [facility] [place] [facility] Mar 17, 2020 03:00 PM VA-TOBACCO QUIT 15 YRS OR MORE [facility] [place] [facility] Mar 31, 2019 09:04 AM VA-TOBACCO FORMER USER [facility] [place] [facility] Mar 31, 2019 09:04 AM VA-TOBACCO QUIT 15 YRS OR MORE [facility] [place] [facility] Encounter Notes: All associated encounter [...] Time: 9 AM Number of group members: Computer Language Coder: Marialuisa Salcedo, [facility] Group began with a introduction that iRest [...] was on feelings and emotions. engaged with lieutenant governor and group members appropriately, participating in the meditation and reflection time. did not endorse SI/HI. [place]'s intention is to center in the present moment. DIAGNOSES: Persistent mood disorder, unspecified PTSD, chronic Cognitive Disorder (History of) Cerebral Infarction, Unspecified VA Video Connect (VVC) Standard Documentation VVC Clinician Resources Only: E911 (Emergency Call Relay Center): [phone] National Veterans Crisis Line - 988 then press #1. CWNehemias Suicide Coordinator [phone], Ext. [phone]; Back-up Ext. [phone] [place] Police, BETH, Sangeeta [phone] Introduction: Visit is being conducted by [place] [employer] [facility]. [place] identified with 2 identifiers: [X] Full Name [X] Date of [ ] VA ID Card Emergency Plan: [place] confirmed and/or provided the following information in case of emergency or technology failure. PATIENT PHONE - PHONE NUMBER [CELLULAR] - Is patient phone number correct, if not, enter below: 's phone number: TAJ DE LA ROSA [address], [place], [address] 's present location and address for appointment: his home [place]'s emergency contact name and phone number: E-Cont.: JUVENCIO DE LA ROSA Relation Type: UNRELATED FRIEND/OTHER Relation Note: OTHERS [address] [place] [address] [facility] reported that location is private and safe: Yes Informed Consent: [place] informed of the risks and benefits of Telehealth video care. has the right to refuse video services. If refuses video visit, a [id number] visit will be scheduled. verbalized consent for this video visit: Yes [place] provided consent for any other persons present for visit: Yes If yes, who and relationship to patient:group Secure visit: Visit was locked for security and privacy:Yes /nicole/ REBECA CARABALLO Senior Tax Manager Signed: 03/25/2024 10:37 MARIALUISA SALCEDO [facility]
--- OUTSIDE RECORDS SUMMARY | 2024-06-01 10:55 | XMS_ITS | Clinical Summary ---
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 [id number] Health Maintenance Due Date Last Done Comments Colorectal Cancer Screening: Annual FOBT 2006 Colorectal Cancer Screening: Colonoscopy 2006 Colorectal Cancer Screening: Sigmoidoscopy 2006 Pneumococcal Vaccine: 50+ Years (2 of 2 - PPSV23) 01/26/2015 12/01/2014 Diabetes: Pedal Pulse Checked 02/25/2019 Diabetes: Sensory Foot Exam 02/25/2019 Diabetes: Visual Foot Exam 02/25/2019 Diabetes: Hemoglobin A1C 10/25/2022 023, 02/21/2021, 02/21/2021, Additional history exists Influenza Vaccine (Season Ended) 2024 10/24/2022, 10/28/2021, 12/19/2020, Additional history exists Diabetes: Ophthalmology Exam 12/18/2024 12/19/2023, 12/04/2022 Pneumococcal Vaccine: Peds (0 to 5 Years) and At-Risk Patients (6 to 49 Years) Discontinued 12/01/2014 Hepatitis B Vaccine Aged Out No longe r eligible based on patient's age to complete this topic Procedures Procedure Name Priority Date/Time Associated Diagnosis Comments IMMUNOFIXATION ELECTROPHORESIS Routine 05/25/2024 9:30 AM EDT Proteinuria, not otherwise specified PHOSPHOLIPASE A2 RECEPTOR ANTIBODIES, SERUM Routine 05/25/2024 9:30 AM EDT Proteinuria, not otherwise specified PROTEIN / CREATININE RATIO, URINE Routine 05/25/2024 9:30 AM EDT Proteinuria, not otherwise specified VITAMIN D 25 HYDROXY Routine 05/25/2024 9:30 AM EDT Proteinuria, not otherwise specified RENAL FUNCTION PANEL Routine 05/25/2024 9:30 AM EDT Proteinuria, not otherwise specified HEMOGLOBIN A1C Routine 07/25/2022 10:20 AM EDT Type 2 diabetes mellitus, not otherwise specified (HCC) from Last 3 Months or Most Recently Relevant to Health Maintenance Results * Phospholipase A2 Receptor Antibodies, Serum (05/25/2024 9:30 AM EDT) Anti-PLA2R <1.8 0.0 - 19.9 RU/mL [facility] Comment: ?Negative ?<14.0 ?Borderline ??14.0 - 19.9 ?Positive ?>19.9 Blood (Blood, Venous) 05/25/2024 9:30 AM EDT 05/25/2024 us Camilo Terrell MD LAB BLOOD ORDERABLES Final Resul t [employer] [place] [address] [place] [address] * (ABNORMAL) Protein, Total, Random Urine w/Creatinine (Protein/Creat Ratio) (05/25/2024 9:30 AM EDT) Creatinine, Ur 60.4 Not Estab. mg/dL [facility] Protein, Ur 69.0 Not Estab. mg/dL [facility] Urine Protein/Creati nine Ratio 1,142(H) 0 - 200 mg/g creat [facility] Urine (Urine, Clean Catch) 05/25/2024 9:30 AM EDT 05/25/2024 us Camilo Terrell MD LAB URINE ORDERABLES Final Resul t Performing Organization Address City/[facility]/ZIP Co de Phone Number [facility] [facility] [address] [place] [address] * Vitamin D 25 Hydroxy (05/25/2024 9:30 AM EDT) Vitamin D, 25-OH, Total 33.5 30.0 - 100.0 ng/mL [facility] Comment: Vitamin D deficiency has been defined by the [place] of Medicine and an Endocrine Society practice guideline as a level of serum 25-OH vitamin D less than 20 ng/mL (1,2). The Endocrine Society went on to further define vitamin D insufficiency as a level between 21 and 29 ng/mL (2). 1. IOM ([place] of Medicine). 2010. Dietary reference ?? intakes for calcium and D. [place]: The ?? National [employer]. 2. Marissa MF, Jalen ROBERSON, Bret BEDOLLA, et al. ?? Evaluation, treatment, and prevention of vitamin D ?? deficiency: an Endocrine Society clinical practice ?? guideline. JCEM. 2010; 96(7):1911-30. Blood (Blood, Venous) 05/25/2024 9:30 AM EDT 05/25/2024 Camilo Terrell MD LAB BLOOD ORDERABLES Final Resul t Performing Organization Address City/[facility] Co de Phone Number [facility] [facility] [place] [address] [place] [address] * Immunofixation electrophoresis (05/25/2024 9:30 AM EDT) IgG 1,081 603 - 1,613 mg/dL [facility] IgA 288 61 - 437 mg/dL [facility] IgM 40 20 - 172 mg/dL [facility] Immunofixation Result, Serum Comment [facility] Comment: The immunofixation pattern appears unremarkable. Evidence of monoclonal protein is not apparent. Blood (Blood, Venous) 05/25/2024 9:30 AM EDT 05/25/2024 Camilo Terrell MD LAB BLOOD ORDERABLES Final Resul t Performing Organization Address City/[facility] Co de Phone Number [facility] [employer] [facility] [place] [address] [place] [address] * (ABNORMAL) Renal Function Panel (05/25/2024 9:30 AM EDT) Glucose 149(H) 70 - 99 mg/dL [facility] BUN 16 8 - 27 mg/dL [facility] Creatinine 1.05 0.76 - 1.27 mg/dL [facility] eGFR CKD-EPI CR 2020 78 >59 mL/min/1.7 3 [facility] BUN/Creatinine Ratio 15 10 - 24 [facility] Sodium 140 134 - 144 mmol/L [facility] Potassium 4.5 3.5 - 5.2 mmol/L [facility] Chloride 102 96 - 106 mmol/L [facility] Bicarbonate (CO2) 23 20 - 29 mmol/L [facility] Calcium 9.1 8.6 - 10.2 mg/dL [facility] Albumin 4.0 3.9 - 4.9 g/dL [facility] Phosphorus 2.9 2.8 - 4.1 mg/dL [facility] Blood (Blood, Venous) 05/25/2024 9:30 AM EDT 05/25/2024 us Camilo Terrell MD LAB BLOOD ORDERABLES Final Resul t [facility] [place] [address] [place] [address] * (ABNORMAL) Hemoglobin A1c (07/25/2022 10:20 AM EDT) [facility] Hemoglobin A1C 5.9(H) (4.0-5.6) % [facility] Comment: MONITORING: In known diabetic patients, hemoglobin A1c targets should be discussed with health care provider. DIAGNOSTIC USE: ??The [place] Diabetes Association (ADA) and the World Health [...] Supplement 1 Testing performed or reported by [facility], a Service of [facility], [address] [place] [id number] Larry Syed MD, Information Officer [facility]# [id number] Blood (Blood, Venous) 07/25/2022 10:20 AM EDT 07/25/2022 10:48 AM EDT us Calvin LOUIE LAB BLOOD ORDERABLES Final Re sult [facility] from Last 3 Months or Most Recently Relevant to Health Maintenance Insurance Medicare [facility] Care Teams Business Planning Director Relationship Specialty Start Date End Date Luis F Lozada DO [address] [place] [address] PCP - General Internal Medicine 02/03/21
--- OUTSIDE RECORDS SUMMARY | 2024-06-01 10:55 | XMS_ITS | Encounter Summary ---
Author Name [facility] [place] [facility] [place] Organization [facility] [place] Address [address] [place] [address] Care Team Providers Care Credit Negotiator Name Role Phone JOSE MANUEL PITT Primary [...] Burgess's Name Patient's Relationship to Policy Burgess [facility] PLAN MEDICARE SUPPLEMEN BETY MEDIC ARE SUPPL EMENT A Feb 18, 2022 SUPP1 [id number] [phone] GINA DE LA ROSA PATIENT [facility] MED PREFER/SEN IOR CARE MEDICARE SUPPLEMEN BETY MEDIC ARE SUPPL EMENT A Feb 18, 2021 SUPP1 [id number] GINA DE LA ROSA PATIENT Selected Encounter This section includes the information on record at [place] for the Encounter. Date/Time Encounter Type Encounter Description Reason Provider Source Jan 29, 2024 09:00 AM GROUP [facility]Y [facility] ICD-10-CM F34.9 Persistent mood [affective] disorder, unspecified MARIALUISA SALCEDO Encounter Template Text not used by [place] Assessments - Encounter Diagnoses This section includes the primary and secondary diagnoses documented for the Encounter. Date/Time Primary/Secondary Diagnosis Diagnosis Name Provider Source Jan 29, 2024 10:21 AM PRIMARY Persistent mood [affective] disorder, unspecified MARIALUISA SALCEDO [facility] [place] [facility] Jan 29, 2024 10:21 AM SECONDARY Post-traumatic stress disorder, chronic MARIALUISA SALCEDO [facility] [place] [facility] Plan of Treatment: Future Appointments (+ 6 months) and Future Tests (+/- 45 days) The Plan of Treatment section includes future care activities for the patient from all [place] [facility] This section includes future appointments and future orders which are active, pending or scheduled. Future Appointments This section includes appointments that were scheduled to occur 6 months from the date of the Encounter, up to a maximum of 20 appointments. The data comes from all [place] treatment facilities. Appointment Date/Time Appointment Type Appointme nt Facility Name Feb 05, 2024 09:00 AM AMBULATORY - [facility] [place] [facility] Feb 10, 2024 07:00 AM AMBULATORY - PS[facility]RY [facility] [place] [facility] Feb 24, 2024 07:00 AM AMBULATORY - PS[facility]IATRY [facility] [place] [facility] Mar 04, 2024 09:00 AM AMBULATORY - PS[facility]IATRY [facility] [place] [facility] Mar 11, 2024 09:00 AM AMBULATORY - PS[facility]IATRY [facility] [place] [facility] Mar 18, 2024 09:00 AM AMBULATORY - PS[facility]RY [facility] [place] [facility] Mar 25, 2024 09:00 AM AMBULATORY - PS[facility]IATRY [facility] [place] [facility] Mar 30, 2024 07:00 AM AMBULATORY - PS[facility]IATRY [facility] [place] [facility] Mar 30, 2024 01:00 PM AMBULATORY - PS[facility]IATRY [facility] [place] [facility] Apr 01, 2024 09:00 AM AMBULATORY - PS[facility]IATRY [facility] [place] [facility] Apr 08, 2024 09:00 AM AMBULATORY - PS[facility]CHIATRY [facility] [place] [facility] Apr 13, 2024 07:00 AM AMBULATORY - PS[facility]IATRY [facility] [place] [facility] Apr 15, 2024 09:00 AM AMBULATORY - [facility]RY [facility] [place] [facility] Apr 20, 2024 09:00 AM AMBULATORY - NEUROLOGY [facility] [place] [facility] Apr 22, 2024 09:00 AM AMBULATORY - PS[facility]CHIATRY [facility] [place] [facility] Apr 29, 2024 09:00 AM AMBULATORY - PS[facility]CHIATRY [facility] [place] [facility] May 04, 2024 07:00 AM AMBULATORY - PS[facility] [place] [facility] May 04, 2024 10:15 AM AMBULATORY - MEDICINE [facility] [place] [facility] May 06, 2024 09:00 AM AMBULATORY - PS[facility]CHIATRY [facility] [place] [facility] May 14, 2024 09:30 AM AMBULATORY - MEDICINE [facility] Social History: Smoking Status (Most current) and Tobacco Use (All prior to encounter date) This section includes the most current, and the historical, smoking and tobacco- related health factors from the [place] facility where the Encounter took place. Current Smoking Status This section includes the most current smoking, or tobacco-related health factor, from the [place] facility where the Encounter took place. Date/Time Current Smoking Status Comment Facil ity Apr 15, 2023 07:00 AM VA-TOBACCO FORMER USER [facility] [place] [facility] Tobacco Use History This section includes a history of the smoking, or tobacco-related health factors, that were collected on or before the date of the Encounter. The data comes from the [place] facility where the Encounter took place. Date/Time Smoking Status/Tobacco Use Comment F acility Apr 15, 2023 07:00 AM VA-TOBACCO QUIT 15 YRS OR MORE [facility] [place] [facility] Apr 24, 2022 07:00 AM VA-TOBACCO FORMER USER [facility] [place] [facility] Apr 24, 2022 07:00 AM VA-TOBACCO QUIT 15 YRS OR MORE [facility] [place] [facility] Apr 27, 2021 03:00 PM VA-TOBACCO FORMER USER [facility] [place] [facility] Apr 27, 2021 03:00 PM VA-TOBACCO QUIT 15 YRS OR MORE [facility] [place] [facility] Mar 17, 2020 03:00 PM VA-TOBACCO FORMER USER [facility] [place] [facility] Mar 17, 2020 03:00 PM VA-TOBACCO QUIT 15 YRS OR MORE [facility] [place] [facility] Mar 31, 2019 09:04 AM VA-TOBACCO FORMER USER [facility] [place] [facility] Mar 31, 2019 09:04 AM VA-TOBACCO QUIT 15 YRS OR MORE [facility] [place] [facility] Encounter Notes: All associated encounter notes This section contains the clinical notes associated to the Encounter. Date/Time Encounter Note(s) Provider Source Jan 29, 2024 10:07 AM SOCIAL WORK GROUP COUNSELING NOTE: LOCAL TITLE: SOCIAL WORK GROUP NOTE STANDARD TITLE: SOCIAL WORK GROUP COUNSELING NOTE DATE OF NOTE: JAN 29, 2024@10:07 ENTRY DATE: JAN 29, 2024@10:07:51 AUTHOR: MARIALUISA SALCEDO EXP COSIGNER: URGENCY: STATUS: COMPLETED iRest Group Date: 01/29/24 Time: 9 AM Number of group members: 11 Manager Media Relations: Marialuisa Salcedo QUALITY CONTROL CHEMIST Group began with a introduction that iRest [...] Today's theme was on milind. engaged with boot and shoe repairman and group members appropriately, participating in the meditation and reflection time. [place] did not endorse SI/HI. [place]'s intention was to experience milind and relaxation. DIAGNOSES: Persistent mood disorder, unspecified PTSD, chronic Cognitive Disorder (History of) Cerebral Infarction, Unspecified [place] [employer] [facility] ([facility]) Standard Documentation [facility] Clinician Resources Only: E911 (Emergency Call Relay Center): [phone] National Veterans Crisis Line - 988 then press #1. BETH Suicide Coordinator [phone], Ext. [phone]; Back-up Ext. [phone] [place] BETH [place] [phone] Introduction: Visit is being conducted by [facility]. identified with 2 identifiers: [X] Full Name [X] Date of [ ] VA ID Card Emergency Plan: confirmed and/or provided the following information in case of emergency or technology failure. PATIENT PHONE - PHONE NUMBER [CELLULAR] - Is patient phone number correct, if not, enter below: [place]'s phone number: TAJ DE LA ROSA [address], [place], [address] 's present location and address for appointment: his home [place]'s emergency contact name and phone number: E-Cont.: ESTRELLAJUVENCIO Relation Type: UNRELATED FRIEND/OTHER Relation Note: OTHERS [address] [place] [address] [facility] reported that location is private and safe: Yes Informed Consent: informed of the risks and benefits of Telehealth video care. [place] has the right to refuse video services. If refuses video visit, a lhca-vo-szko visit will be scheduled. [place] verbalized consent for this video visit: Yes provided consent for any other persons present for visit: Yes If yes, who and relationship to patient:group Secure visit: Visit was locked for security and privacy:Yes /nicole/ REBECA CARABALLO Acute Specialist Signed: 01/29/2024 10:21 MARIALUISA SALCEDO [facility]
--- OUTSIDE RECORDS SUMMARY | 2024-06-01 10:55 | XMS_ITS ---
Author Name [facility] [place] [facility] Address [address] [place] [address] Care Team Providers Care Basket Assembler Name Role Phone JOSE MANUEL PITT Primary [...] Burgess's Name Patient's Relationship to Policy Burgess [facility] HEALTH PLAN MEDICARE SUPPLEMEN BETY MEDIC ARE SUPPL EMENT A Feb 18, 2022 SUPP1 [id number] GINA DE LA ROSA PATIENT [facility] MED PREFER/SEN IOR CARE MEDICARE SUPPLEMEN BETY MEDIC ARE SUPPL EMENT A Feb 18, 2021 SUPP1 [id number] GINA DE LA ROSA PATIENT Selected Encounter This section includes the information on record at [place] for the Encounter. Date/Time Encounter Type Encounter Description Reason Pro vider Source Jan 27, 2024 09:00 AM [facility] En[facility] Template Text not used by [place] Plan of Treatment: Future Appointments (+ 6 months) and Future Tests (+/- 45 days) The Plan of Treatment section includes future care activities for the patient from all [place] treatmentfacilities. This section includes future appointments and [...] - PSYCHIATRY [facility] [place] [facility] Feb 05, 2024 09:00 AM AMBULATORY - PSYCHIATRY [facility] [place] [facility] Feb 10, 2024 07:00 AM AMBULATORY - PS[facility]CHIATRY [facility] [place] [facility] Feb 24, 2024 07:00 AM AMBULATORY - PS[facility]IATRY [facility] [place] [facility] Mar 04, 2024 09:00 AM AMBULATORY - PS[facility]CHIATRY [facility] [place] [facility] Mar 11, 2024 09:00 AM AMBULATORY - PSYCHIATRY [facility] [place] [facility] Mar 18, 2024 09:00 AM AMBULATORY - PS[facility]CHIATRY [facility] [place] [facility] Mar 25, 2024 09:00 AM AMBULATORY - PS[facility]CHIATRY [facility] [place] [facility] Mar 30, 2024 07:00 AM AMBULATORY - PS[facility]CHIATRY [facility] [place] [facility] Mar 30, 2024 01:00 PM AMBULATORY - PSYCHIATRY [facility] [place] [facility] Apr 01, 2024 09:00 AM AMBULATORY - PSYCHIATRY [facility] [place] [facility] Apr 08, 2024 09:00 AM AMBULATORY - PSYCHIATRY [facility] [place] [facility] Apr 13, 2024 07:00 AM AMBULATORY - PSYCHIATRY [facility] [place] [facility] Apr 15, 2024 09:00 AM AMBULATORY - PSYCHIATRY [facility] [place] [facility] Apr 20, 2024 09:00 AM AMBULATORY - NEUROLOGY [facility] [place] [facility] Apr 22, 2024 09:00 AM AMBULATORY - PSYCHIATRY [facility] [place] [facility] Apr 29, 2024 09:00 AM AMBULATORY - PSYCHIATRY [facility] [place] [facility] May 04, 2024 07:00 AM AMBULATORY - PSYCHIATRY [facility] [place] [facility] May 04, 2024 10:15 AM AMBULATORY - MEDICINE [place] [facility] [place] [facility] May 06, 2024 09:00 AM AMBULATORY - PS[place]CHIATRY [facility] [place] [facility] Social History: Smoking Status (Most [...] VA-TOBACCO FORMER USER [place] [facility] [place] [facility] Tobacco Use History This section includes a history of the smoking, or tobacco-related health factors, that were collected on or before the date of the Encounter. The data comes from the [place] facility where the Encounter took place. Date/Time Smoking Status/Tobacco Use Comment F acility Apr 15, 2023 07:00 AM VA-TOBACCO QUIT 15 YRS OR MORE [facility] [place] [facility] Apr 24, 2022 07:00 AM VA-TOBACCO FORMER USER [facility] [place] [facility] Apr 24, 2022 07:00 AM VA-TOBACCO QUIT 15 YRS OR MORE [facility] [place] [facility] Apr 27, 2021 03:00 PM VA-TOBACCO FORMER USER [facility] [place] [facility] Apr 27, 2021 03:00 PM VA-TOBACCO QUIT 15 YRS OR MORE [facility] [place] [facility] Mar 17, 2020 03:00 PM VA-TOBACCO FORMER USER [facility] [place] [facility] Mar 17, 2020 03:00 PM VA-TOBACCO QUIT 15 YRS OR MORE [facility] [place] [facility] Mar 31, 2019 09:04 AM VA-TOBACCO FORMER USER [facility] [place] [facility] Mar 31, 2019 09:04 AM VA-TOBACCO QUIT 15 YRS OR MORE [facility] [place] [facility] Encounter Notes: All associated encounter [...] future appointments set up at this point. [place] and spouse will call back to set up more appointments. /nicole/ YARELY WIGGINS ADVANCED CAMP COUNSELOR Signed: 01/27/2024 08:31 Receipt Acknowledged By: 01/28/2024 06:54 /nicole/ Moises Padilla PsyD Staff Psychologist YARELY WIGGINS [place] [facility]
--- OUTSIDE RECORDS SUMMARY | 2024-06-01 10:55 | XMS_ITS | Encounter Summary ---
Author Name [facility] [place] Address [address] [place] [address] Care Team Providers Care Box Toe Cementer Name Role Phone JOSE MANUEL PITT Primary [...] Burgess's Name Patient's Relationship to Policy Burgess [facility] HEALTH PLAN MEDICARE SUPPLEMEN BETY MEDIC ARE SUPPL EMENT A Feb 18, 2022 SUPP1 [id number] [phone] GINA DE LA ROSA PATIENT [facility] MED PREFER/SEN IOR CARE MEDICARE SUPPLEMEN BETY MEDIC ARE SUPPL EMENT A Feb 18, 2021 SUPP1 [id number] [phone] GINA DE LA ROSA PATIENT Selected Encounter This section includes the information on record at [place] for the Encounter. Date/Time Encounter Type Encounter [...] 12:55 PM PRIMARY Nail dystrophy ASHLEIGH QUINTEROS [place] Apr 02, 2024 12:55 PM SECONDARY Corns and callosities ASHLEIGH QUINTEROS [facility] [place] Apr 02, 2024 12:55 PM SECONDARY Pain in left foot ASHLEIGH QUINTEROS [facility] [place] Apr 02, 2024 12:55 PM SECONDARY Pain in left toe(s) ASHLEIGH QUINTEROS [facility] Apr 02, 2024 12:55 PM SECONDARY Pain in right foot ASHLEIGH QUINTEROS [facility] Apr 02, 2024 12:55 PM SECONDARY Pain in right toe(s) ASHLEIGH QUINTEROS [facility] Apr 02, 2024 12:55 PM SECONDARY Type 2 diabetes w diabetic peripheral angiopath w/o gangrene ASHLEIGH QUINTEROS [place] Plan of Treatment: Future Appointments (+ 6 months) and Future Tests (+/- 45 days) The Plan of Treatment section includes future care activities for the patient from all [place] [facility]. This section includes future appointments and future orders which are active, pending or scheduled. Future Appointments This section includes appointments that were scheduled to occur 6 months from the date of the Encounter, up to a maximum of 20 appointments. The data comes from all [place] treatment facilities. Appointment Date/Time Appointment Type Appointme nt Facility Name Jan 14, 2024 07:00 AM AMBULATORY [facility] [place] [facility] Jan 20, 2024 08:30 AM AMBULATORY - NEUROLOGY [facility] [place] [facility] Jan 22, 2024 09:00 AM AMBULATORY - [facility]IATRY [facility] [place] [facility] Jan 27, 2024 01:30 PM AMBULATORY - PS[facility]IATRY [facility] [place] [facility] Jan 29, 2024 09:00 AM AMBULATORY - [facility]AT[facility] [place] [facility] Feb 05, 2024 09:00 AM AMBULATORY - PS[facility]IATRY [facility] [place] [facility] Feb 10, 2024 07:00 AM AMBULATORY - PS[facility]IATRY [facility] [place] [facility] Feb 24, 2024 07:00 AM AMBULATORY - PS[facility]IATRY [facility] [place] [facility] Mar 04, 2024 09:00 AM AMBULATORY - PS[facility]CHIATRY [facility] [place] [facility] Mar 11, 2024 09:00 AM AMBULATORY - PS[facility]CHIATRY [facility] [place] [facility] Mar 18, 2024 09:00 AM AMBULATORY - [...] [facility] [place] [facility] Lab Results: +/- 30 days of the [...] Type Comment Dec 19, 2023 07:55 AM [facility] FOLATE (WROX) SERUM Specimen Type: SERUM No comment entered. Ordering Provider: SALLY PIERRE Report Released Date/Time: Oct 28, 2023 09:59 AM Reporting [facility] [address] [facility] [address] Performing Lab: [facility] [place] [facility] [address] [facility] [address] FOLATE (WROX) 9.07 ng/mL >5.2 Dec 19, 2023 07:55 AM [facility] TSH SERUM Specimen Type: SERUM No comment entered. Ordering Provider: SALLY PIERRE Report Released Date/Time: Oct 28, 2023 09:59 AM Reporting Lab: [facility] [address] Performing Lab: [facility] [address] TSH 1.09 u[IU]/mL 0.35-5.00 Dec 19, 2023 07:55 AM [facility] VITAMIN D (25-[place]) SERUM Specimen Type: SERUM No comment entered. Ordering Provider: SALLY PIERRE Report Released Date/Time: Oct 28, 2023 09:59 AM Reporting [facility] [address] [address] Performing [facility]: [facility] [address] [address] VITAMIN D (25-OH) 38 ng/mL 20-50 Dec 19, 2023 07:55 AM [facility] VITAMIN B12 SERUM Specimen Type: SERUM No comment entered. Ordering Provider: SALLY PIERRE Report Released Date/Time: Oct 28, 2023 09:59 AM Reporting [facility] [address] [address] Performing [facility]: [facility] [address] [address] VITAMIN B12 297 pg/mL 200-900 Dec 19, 2023 07:55 AM [facility] LIPID PANEL FASTING SERUM Specimen Type: SERU M No comment entered. Ordering Provider: SALLY PIERRE Report Released Date/Time: Dec 16, 2023 09:50 AM Reporting Lab: [address] [address] Performing Lab: [facility] [address] CHOLESTEROL 113 mg/dL TRIGLYCERIDE 85 mg/dL 0-150 LDL calculated 50 mg/dL 0-129 CHOL/HDL 2.5 HDL CHOLESTEROL 46 mg/dL 40-60 Dec 19, 2023 07:55 AM [facility] HEMOGLOBIN A1C PANEL BLOOD Specimen Type: BLO [...] 16, 2023 09:50 AM Reporting Lab: [facility] [address] [facility] [address] Performing Lab: [address] [address] HEMOGLOBIN A1C 5.5 4.0-5.6 Dec 19, 2023 07:55 AM [facility] BASIC METABOLIC PANEL (fasting) SERUM Specime n Type: SERUM No comment entered. Ordering Provider: SALLY PIERRE Report Released Date/Time: Dec 16, 2023 09:50 AM Reporting Lab: [facility] [address] [facility] [address] Performing Lab: [address] [address] UREA NITROGEN 18 mg/dL 7-25 GLUCOSE 117 [...] Pt. is a 68 yo alert [facility] who IS SEEN for CONTINUED podiatric [...] present physical-medical status. Protective sensation utilizing a [place] lOg monofilament is 9/10RT & 8/10 LEFT. BIOMECHANICAL: Exam is deferred at this time due to the presence of pain/ as non-contributory to the cc . 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 P: Treatment consists of debridement-reduction of all [...] Remote Allergy/ADR Data available for this patient [facility] Med Recon NoGlossary (Tool #1) [...] the patient into personal health records (i.e. My [facility]) are NOT included in this list. Non-VA medications documented outside this [place], remote inpatient orders (regardless of status) and [...] FOR DRY IRRITATED SKIN UNDER OCCLUSION Rx# [id number] Last Released: 08/23/23 Qty/Days Supply: 240/60 Rx Expiration Date: 08/21/24 Refills Remainin Indication: FOR DRY SKIN OUTPT ARMODAFINIL 50MG TAB (Status = Discontinued) TAKE ONE TABLET BY MOUTH EVERY MORNING FOR 4 DAYS, THEN TAKE TWO TABLETS EVERY MORNING Rx# [id number] Last Released: 10/28/23 Qty/Days Supply: 56/30 Rx Expiration Date: 11/27/23 Refills Remainin Indication: TO IMPROVE WAKEFULNESS OUTPT ARMODAFINIL 50MG TAB (Status = Discontinued) TAKE TWO TABLETS BY MOUTH EVERY MORNING TO IMPROVE WAKEFULNESS Rx# [id number] Last Released: 11/26/23 Qty/Days Supply: 6030 Rx Expiration Date: 05/27/24 Refills Remainin Indication: TO IMPROVE WAKEFULNESS OUTPT ARMODAFINIL 50MG TAB (Status = Active) TAKE TWO TABLETS BY MOUTH EVERY MORNING Rx# [id number] Last Released: 12/24/23 Qty/Days Supply: 6030 Rx Expiration Date: 06/17/24 Refills Remainin Indication: TO IMPROVE WAKEFULNESS Non-VA ATORVASTATIN CALCIUM 80MG TAB TAKE ONE TABLET BY MOUTH ONCE DAILY Medication prescribed by Non-VA provider. per neurology notes 12/29/2018 - OUTPT BREXPIPRAZOLE 1MG TAB (Status = Active) TAKE ONE TABLET BY MOUTH ONCE DAILY Rx# [id number] Last Released: 12/18/23 Qty/Days Supply: Rx Expiration Date: 12/16/24 Refills Remainin Indication: MOOD OUTPT BREXPIPRAZOLE 2MG TAB (Status = Discontinued) TAKE ONE TABLET BY MOUTH ONCE DAILY FOR MOOD DOSE INCREASE Rx# [id number] Last Released: 09/23/23 Qty/Days Supply: Rx Expiration Date: 09/19/24 Refills Remainin Indication: MOOD OUTPT CLONIDINE HCL 0.1MG TAB (Status = Discontinued) TAKE ONE TABLET BY MOUTH AT BEDTIME FOR INSOMNIA Rx# [id number] Last Released: 09/02/23 Qty/Days Supply: Rx Expiration Date: 05/23/24 Refills Remainin Indication: INSOMNIA OUTPT CLONIDINE HCL 0.1MG TAB (Status = Active) TAKE ONE TABLET BY MOUTH AT BEDTIME FOR INSOMNIA Rx# [id number] Last Released: 11/26/23 Qty/Days Supply: Rx Expiration [...] FOR 12 HOURS, THEN REMOVE PATCH) Rx# [id number] Last Released: 07/30/23 Qty/Days Supply: Rx Expiration [...] ONE TABLET BY MOUTH ONCE DAILY Rx# [id number] Last Released: QtDays Supply: Rx Expiration Date: 10/23/24 Refills Remainin Non-VA OMEPRAZOLE 20MG EC CAP TAKE 2 CAPSULES BY MOUTH ONCE DAILY Medication prescribed by Non-VA provider. per neurology notes 12/29/2018 - OUTPT ONABOTULINUMTOXINA 200 UNIT/FRANCISCO J INJ (Status = Active) INJECT DIRECTED INTRAMUSCULARLY EVERY THREE MONTHS FOR MIGRAINE HEADACHES Rx# [id number] Last Released: 10/07/23 Qty/Days Supply: Rx Expiration [...] BY MOUTH AT BEDTIME FOR INSOMNIA Rx# [id number] Last Released: 09/30/23 Qty/Days Supply: Rx Expiration Date: 05/23/24 Refills Remainin Indication: INSOMNIA OUTPT TRAZODONE HCL 100MG TAB (Status = Active) TAKE TWO TABLETS BY MOUTH AT BEDTIME FOR INSOMNIA Rx# [id number] Last Released: 12/11/23 Qty/Days Supply: Rx Expiration Date: 11/25/24 Refills Remainin Indication: INSOMNIA OUTPT TROSPIUM CL 20MG TAB (Status = Discontinued) TAKE ONE TABLET BY MOUTH TWICE DAILY ON AN EMPTY STOMACH Rx# [id number] Last Released: 09/24/23 Qty/Days Supply: 60 Rx Expiration Date: 08/23/24 Refills Remainin OUTPT TROSPIUM CL 20MG TAB (Status = Active) TAKE ONE TABLET BY MOUTH TWICE DAILY ON AN EMPTY STOMACH Rx# [id number] Last Released: 12/23/23 Qty/Days Supply: 60/30 Rx Expiration Date: 10/28/24 Refills Remainin SUPPLIES /nicole/ ASHLEIGH QUINTEROS DPM PATENT LAW SPECIALIST Signed: 01/09/2024 10:03 ASHLEIGH QUINTEROS
--- OUTSIDE RECORDS SUMMARY | 2024-06-01 10:55 | XMS_ITS | Encounter Summary ---
Author Name [facility] [place] [facility] [place] [facility] [place] Address [address] [place] [address] Care Team Providers Care Driver Messenger Name Role Phone JOSE MANUEL PITT Primary [...] SUPPL EMENT A Feb 18, 2022 SUPP1 [id number] [phone] GINA DE LA ROSA PATIENT [facility] MED PREFER/SEN IOR CARE MEDICARE SUPPLEMEN BETY MEDIC ARE SUPPL EMENT A Feb 18, 2021 SUPP1 [id number] GINA DE LA ROSA PATIENT Selected [...] unspecified MOISES PADILLA [facility] [place] [facility] Feb 24, 2024 07:56 AM SECONDARY Post-traumatic stress disorder, chronic MOISES PADILLA [facility] [place] [facility] Feb 24, 2024 07:56 AM SECONDARY Unsp symptoms and signs w cognitive functions and awareness MOISES PADILLA [facility] [place] [facility] Plan of Treatment: Future Appointments (+ 6 months) and Future Tests (+/- 45 days) The Plan of Treatment section includes future care activities for the patient from all [place] [facility]. This section includes future appointments and [...] AMBULATORY - PSYCHIATRY [facility] [place] [facility] Mar 11, 2024 09:00 AM AMBULATORY - PS[facility]CHIATRY [facility] [place] [facility] Mar 18, 2024 09:00 AM AMBULATORY - PS[facility]CHIATRY [facility] [place] [facility] Mar 25, 2024 09:00 AM AMBULATORY - PS[facility]CHIATRY [facility] [place] [facility] Mar 30, 2024 07:00 AM AMBULATORY - PS[facility]CHIATRY [facility] [place] [facility] Mar 30, 2024 01:00 PM AMBULATORY - PS[facility]CHIATRY [facility] [place] [facility] Apr 01, 2024 09:00 AM AMBULATORY - PS[facility]CHIATRY [facility] [place] [facility] Apr 08, 2024 09:00 AM AMBULATORY - PS[facility]CHIATRY [facility] [place] [facility] Apr 13, 2024 07:00 AM AMBULATORY - PS[facility]CHIATRY [facility] [place] [facility] Apr 15, 2024 09:00 AM AMBULATORY - PS[facility]CHIATRY [facility] [place] [facility] Apr 20, 2024 09:00 AM AMBULATORY - NEUROLOGY [facility] [place] [facility] Apr 22, 2024 09:00 AM AMBULATORY - PS[facility]CHIATRY [facility] [place] [facility] Apr 29, 2024 09:00 AM AMBULATORY - PSYCHIATRY [facility] [place] [facility] May 04, 2024 07:00 AM AMBULATORY - PSYCHIATRY [facility] [place] [facility] May 04, 2024 10:15 AM AMBULATORY - MEDICINE [facility] [place] [facility] May 06, 2024 09:00 AM AMBULATORY - PSYCHIATRY [facility] [place] [facility] May 14, 2024 09:30 AM AMBULATORY - MEDICINE [place] [place] May 20, 2024 09:00 AM AMBULATORY - PS[facility]CHIATRY [facility] [place] [facility] May 21, 2024 02:00 PM AMBULATORY - MEDICINE [facility] [place] [facility] May 25, 2024 07:00 AM AMBULATORY - PSYCHIATRY [facility] [place] [facility] Social History: Smoking Status (Most current) [...] VA-TOBACCO FORMER USER [facility] [place] [facility] Tobacco Use History This section includes a history of the smoking, or tobacco-related health factors, that were collected on or before the date of the Encounter. The data comes from the [place] facility where the Encounter took place. Date/Time Smoking Status/Tobacco Use Comment F jodie Apr 15, 2023 07:00 AM VA-TOBACCO QUIT 15 YRS OR MORE [facility] [place] [facility] Apr 24, 2022 07:00 AM VA-TOBACCO FORMER USER [facility] [place] [facility] Apr 24, 2022 07:00 AM VA-TOBACCO QUIT 15 YRS OR MORE [facility] [place] [facility] Apr 27, 2021 03:00 PM VA-TOBACCO FORMER USER [facility] [place] [facility] Apr 27, 2021 03:00 PM VA-TOBACCO QUIT 15 YRS OR MORE [facility] [place] [facility] Mar 17, 2020 03:00 PM VA-TOBACCO FORMER USER [facility] [place] [facility] Mar 17, 2020 03:00 PM VA-TOBACCO QUIT 15 YRS OR MORE [facility] [place] [facility] Mar 31, 2019 09:04 AM VA-TOBACCO FORMER USER [facility] [place] [facility] Mar 31, 2019 09:04 AM VA-TOBACCO QUIT 15 YRS OR MORE [facility] [place] [facility] Encounter Notes: All associated encounter notes This section contains the clinical notes associated to the Encounter. Date/Time Encounter Note(s) Provider Source Feb 24, 2024 06:35 AM PSYCHOLOGY NOTE: LOCAL TITLE: PSYCHOLOGY NOTE STANDARD TITLE: PSYCHOLOGY NOTE DATE OF NOTE: FEB 24, 2024@06:35 ENTRY DATE: FEB 24, 2024@06:35:43 AUTHOR: MOISES PADILLA COSIGNER: URGENCY: STATUS: COMPLETED [place] was identified by Visual recognition and patient [...] news. He explained that after waiting through [place], they eventually were told that Carlyn has [...] Padilla PsyD Staff Psychologist Signed: 02/24/2024 07:57 MOISES PADILLA [facility]
--- OUTSIDE RECORDS SUMMARY | 2024-06-01 10:55 | XMS_ITS | Encounter Summary ---
Author Name [facility] [place] Organization [facility] [place] Address [address] [place] [address] Care Team Providers Care Air Export Operations Agent Name Role Phone JOSE MANUEL PITT Primary [...] Burgess's Name Patient's Relationship to Policy Burgess [facility] PLAN MEDICARE SUPPLEMEN BETY MEDIC ARE SUPPL EMENT A Feb 18, 2022 SUPP1 [id number] GINA DE LA ROSA PATIENT [facility] MED PREFER/SEN IOR CARE MEDICARE SUPPLEMEN BETY MEDIC ARE SUPPL EMENT A Feb 18, 2021 SUPP1 [id number] GINA DE LA ROSA PATIENT Selected Encounter This section includes the information on record at [place] for the Encounter. Date/Time Encounter Type Encounter Description Reason Pro vider Source IHE Encounter Template Text not used by [place]
--- OUTSIDE RECORDS SUMMARY | 2024-06-01 10:55 | XMS_ITS ---
Author Name [facility] [place] Address [address] [place] [address] Care Team Providers Care Adult Protective Caseworker Name Role Phone JOSE MANUEL PITT Primary [...] SUPPL EMENT A Feb 18, 2022 SUPP1 [id number] [phone] GINA DE LA ROSA PATIENT [facility] MED PREFER/SEN IOR CARE MEDICARE SUPPLEMEN BETY MEDIC ARE SUPPL EMENT A Feb 18, 2021 SUPP1 [id number] [phone] GINA DE LA ROSA PATIENT Selected Encounter This section includes the information on record at [place] for the Encounter. Date/Time Encounter Type Encounter Description Reason Provider Source Jan 01, 2024 09:00 AM [facility] ICD-10-CM F43.12 Post-traumati c stress disorder, chronic MARIALUISA SALCEDO Encounter Template Text not used by [place] Assessments - Encounter Diagnoses This section includes the primary and secondary diagnoses documented for the Encounter. Date/Time Primary/Secondary Diagnosis Diagnosis Name Provider Source Jan 01, 2024 10:47 AM PRIMARY Post-traumatic stress disorder, chronic MARIALUISA SALCEDO [place] [facility] [place] [facility] Plan of Treatment: Future Appointments (+ 6 months) and Future Tests (+/- 45 days) The Plan of Treatment section includes future care activities for the patient from all [place] treatmentfacilities. This section includes future appointments and [...] AMBULATORY - PSYCHIATRY [facility] [place] [facility] Jan 09, 2024 09:30 AM AMBULATORY - MEDICINE [facility] Jan 14, 2024 07:00 AM AMBULATORY - PS[facility]IATRY [facility] [place] [facility] Jan 20, 2024 08:30 AM AMBULATORY - NEUROLOGY [facility] [place] [facility] Jan 22, 2024 09:00 AM AMBULATORY - PS[facility]IATRY [facility] [place] [facility] Jan 27, 2024 01:30 PM AMBULATORY - PS[facility]CHIATRY [facility] [place] [facility] Jan 29, 2024 09:00 AM AMBULATORY - PS[facility]CHIATRY [facility] [place] [facility] Feb 05, 2024 09:00 AM AMBULATORY - PS[facility]IATRY [facility] [place] [facility] Feb 10, 2024 07:00 AM AMBULATORY - PS[facility]CHIATRY [facility] [place] [facility] Feb 24, 2024 07:00 AM AMBULATORY - PS[facility]CHIATRY [facility] [place] [facility] Mar 04, 2024 09:00 AM AMBULATORY - PS[facility]CHIATRY [facility] [place] [facility] Mar 11, 2024 09:00 AM AMBULATORY - PS[facility]CHIATRY [facility] [place] [facility] Mar 18, 2024 09:00 AM AMBULATORY - PS[facility]CHIATRY [facility] [place] [facility] Mar 25, 2024 09:00 AM AMBULATORY - PSYCHIATRY [facility] [place] [facility] Mar 30, 2024 07:00 AM AMBULATORY - PS[facility]CHIATRY [facility] [place] [facility] Mar 30, 2024 01:00 PM AMBULATORY [place] [facility]RY [place] [facility] [place] [facility] Apr 01, 2024 09:00 AM [facility]BUL[facility] [place] [facility] Apr 08, 2024 09:00 AM AMBULATORY [facility] [place] [facility] Apr 13, 2024 07:00 AM AMBUL[facility] [place] [facility] Apr 15, 2024 09:00 AM AMBULATORY - [place]IATRY [place] [facility] [place] [facility] Lab Results: +/- 30 days of the encounter This section includes the Chemistry and Hematology Lab Results on record with [place] for the patient. Radiology Reports and Pathology Reports are provided separately, in subsequent sections. Lab Results This section contains the Chemistry/Hematology Results that were resulted 30 days before or 30 daysafter the date of the Encounter. Date/Time Source Result Type Result - Unit Interpretation Reference Range Specimen Type Comment Dec 19, 2023 07:55 AM [facility] FOLATE (WROX) SERUM Specimen Type: SERUM No comment entered. Ordering Provider: SALLY PIERRE Report Released Date/Time: Oct 28, 2023 09:59 AM Reporting Lab[facility] [address] [facility] [address] Performing Lab: [facility] [address] [address] FOLATE (WROX) 9.07 ng/mL >5.2 Dec 19, 2023 07:55 AM [facility] TSH SERUM Specimen Type: SERUM No comment entered. Ordering Provider: SALLY PIERRE Report Released Date/Time: Oct 28, 2023 09:59 AM Reporting Lab[facility] [address] [facility] [facility] [address] Performing Lab: [facility] [address] [facility] [facility] [address] TSH 1.09 u[IU]/mL 0.35-5.00 Dec 19, 2023 07:55 AM [facility] VITAMIN D (25-OH) SERUM Specimen Type: SERUM No comment entered. Ordering Provider: SALLY PIERRE Report Released Date/Time: Oct 28, 2023 09:59 AM Reporting Lab: [facility] [address] [facility] [facility] [address] Performing Lab: [address] [address] VITAMIN D (25-OH) 38 ng/mL 20-50 Dec 19, 2023 07:55 AM [facility] VITAMIN B12 SERUM Specimen Type: SERUM No comment entered. Ordering Provider: SALLY PIERRE Report Released Date/Time: Oct 28, 2023 09:59 AM Reporting Lab: [address] [address] Performing Lab: [address] [address] VITAMIN B12 297 pg/mL 200-900 Dec 19, 2023 07:55 AM [facility] LIPID PANEL FASTING SERUM Specimen Type: SERU M No comment entered. Ordering Provider: SALLY PIERRE Report Released Date/Time: Dec 16, 2023 09:50 AM Reporting Lab: [address] [address] Performing Lab: [address] [address] CHOLESTEROL 113 mg/dL TRIGLYCERIDE 85 mg/dL 0-150 LDL calculated 50 mg/dL 0-129 CHOL/HDL 2.5 HDL CHOLESTEROL 46 mg/dL 40-60 Dec 19, 2023 07:55 AM [facility] HEMOGLOBIN A1C PANEL BLOOD Specimen Type: BLO [...] Dec 16, 2023 09:50 AM Reporting Lab: [facility] [address] [address] Performing Lab: [facility] [address] [facility] [facility] [address] HEMOGLOBIN A1C 5.5 4.0-5.6 Dec 19, 2023 07:55 AM [facility] BASIC METABOLIC PANEL (fasting) SERUM Specime n Type: SERUM No comment entered. Ordering Provider: SALLY PIERRE Report Released Date/Time: Dec 16, 2023 09:50 AM Reporting Lab: [facility] [address] [address] Performing Lab: [facility] [address] [facility] [address] UREA NITROGEN 18 mg/dL 7-25 GLUCOSE 117 [...] 15, 2023 07:00 AM VA-TOBACCO FORMER USER [facility] Tobacco Use History This section includes a history of the smoking, or tobacco-related health factors, that were collected on or before the date of the Encounter. The data comes from the [place] facility where the Encounter took place. Date/Time Smoking Status/Tobacco Use Comment Rodney feliciano Apr 15, 2023 07:00 AM VA-TOBACCO QUIT 15 YRS OR MORE [facility] Apr 24, 2022 07:00 AM VA-TOBACCO FORMER USER [facility] Apr 24, 2022 07:00 AM VA-TOBACCO QUIT 15 YRS OR MORE [facility] [place] [facility] Apr 27, 2021 03:00 PM VA-TOBACCO FORMER USER [facility] [place] [facility] Apr 27, 2021 03:00 PM VA-TOBACCO QUIT 15 YRS OR MORE [facility] [place] [facility] Mar 17, 2020 03:00 PM VA-TOBACCO FORMER USER [facility] [place] [facility] Mar 17, 2020 03:00 PM VA-TOBACCO QUIT 15 YRS OR MORE [facility] [place] [facility] Mar 31, 2019 09:04 AM VA-TOBACCO FORMER USER [facility] [place] [facility] Mar 31, 2019 09:04 AM VA-TOBACCO QUIT 15 YRS OR MORE [place] [facility] [place] [facility] Encounter Notes: All associated [...] 9 am Number of group members: 13 Respiratory Practitioner: Marialuisa Salcedo, [facility] Group began with a introduction [...] theme was on intention and heartfelt desire. [place] engaged with powerplant operator and group members appropriately, participating in the meditation and reflection time. did not endorse SI/HI. 's intention was to develop a calmer state in mind and body. DIAGNOSES: Persistent mood disorder, unspecified PTSD, chronic Cognitive Disorder (History of) Cerebral Infarction, Unspecified [facility] Video Connect ([facility]) Standard Documentation [facility] Clinician Resources Only: E911 (Emergency Call Relay Center): [phone] National Veterans Crisis Line - 988 then press #1. CLEMENTENehemias Suicide Coordinator [phone], Ext. [phone]; Back-up Ext. [phone] [place] Police, CLEMENTESangeeta Del Cid [phone] Introduction: Visit is being conducted by [employer] [facility]. [place] identified with 2 identifiers: [X] Full Name [X] Date of [ ] VA ID Card Emergency Plan: confirmed and/or provided the following information in case of emergency or technology failure. PATIENT PHONE - PHONE NUMBER [CELLULAR] - Is patient phone number correct, if not, enter below: 's phone number: TAJ DE LA ROSA [address], [place], [address] [place]'s present location and address for appointment: his home [place]'s emergency contact name and phone number: E-Cont.: JUVENCIO DE LA ROSA Relation Type: UNRELATED FRIEND/OTHER Relation Note: OTHERS [address] [place] [address] [facility] reported that location is private and safe: Yes Informed Consent: informed of the risks and benefits of Telehealth video care. [place] has the right to refuse video services. If refuses video visit, a [id number] visit will be scheduled. [place] verbalized consent for this video visit: Yes provided consent for any other persons present for visit: Yes If yes, who and relationship to patient:group Secure visit: Visit was locked for security and privacy:Yes /nicole/ REBECA CARABALLO Mold Polisher Signed: 01/01/2024 10:48 [facility]
--- OUTSIDE RECORDS SUMMARY | 2024-06-01 10:55 | XMS_ITS | Encounter Summary ---
Author Name [facility] [place] Address [address] [place] [address] Care Team Providers Care Transition Assistant Name Role Phone JOSE MANUEL PITT [...] Patient's Relationship to Policy [facility] PLAN MEDICARE SUPPLEMEN BETY MEDIC ARE SUPPL EMENT A Feb 18, 2022 SUPP1 [id number] GINA DE LA ROSA PATIENT [facility] MED PREFER/SEN IOR CARE MEDICARE SUPPLEMEN BETY MEDIC ARE SUPPL EMENT A Feb 18, 2021 SUPP1 [id number] [phone] GINA DE LA ROSA PATIENT Selected Encounter This section includes the information on record at [place] for the Encounter. Date/Time Encounter Type Encounter Description Reason Provider Source Apr 22, 2024 09:00 AM STRESS MGMT CLASS [facility] ICD-10-CM F43.12 Post-traumatic stress disorder, chronic MARIALUISA SALCEDO Encounter Template Text not used by [place] Assessments - Encounter Diagnoses This section includes the primary and secondary diagnoses documented for the Encounter. Date/Time Primary/Secondary Diagnosis Diagnosis Name Provider Source Apr 22, 2024 10:24 AM PRIMARY Post-traumatic stress disorder, chronic MARIALUISA SALCEDO [facility] [place] [facility] Plan of Treatment: Future Appointments (+ 6 months) and Future Tests (+/- 45 days) The Plan of Treatment section includes future care activities for the patient from all [place] treatmentfacilities. This section includes future appointments and future orders which are active, pending or scheduled. Future Appointments This section includes appointments that were scheduled to occur 6 months from the date of the Encounter, up to a maximum of 20 appointments. The data comes from all [place] treatment facilities. Appointment Date/Time Appointment Type Appointme nt Facility Name Apr 29, 2024 09:00 AM AMBULATORY - PS[facility]IATRY [facility] [place] [facility] May 04, 2024 07:00 AM AMBULATORY - PS[facility]IATRY [facility] [place] [facility] May 04, 2024 10:15 AM AMBULATORY - MEDICINE [facility] [place] [facility] May 06, 2024 09:00 AM AMBULATORY - PSYCHIATRY [facility] [place] [facility] May 14, 2024 09:30 AM [facility] May 20, 2024 09:00 AM AMBULATORY - PS[facility]CHIATRY [facility] [place] [facility] May 21, 2024 02:00 PM AMBULATORY - MEDICINE [facility] [place] [facility] May 25, 2024 07:00 AM AMBULATORY - PS[facility]CHIATRY [facility] [place] [facility] Jun 01, 2024 01:00 PM AMBULATORY - PS[facility]CHIATRY [facility] [place] [facility] Jun 03, 2024 09:00 AM AMBULATORY - PS[facility]IATRY [facility] [place] [facility] Jun 09, 2024 07:00 AM AMBULATORY - PS[facility]IATRY [facility] [place] [facility] Jun 10, 2024 09:00 AM AMBULATORY - PS[facility]CHIATRY [facility] [place] [facility] June 22, 2024 07:00 AM AMBULATORY - PS[facility]CHIATRY [facility] [place] [facility] July 06, 2024 07:00 AM AMBULATORY - PS[facility]CHIATRY [facility] [place] [facility] Jul 20, 2024 09:00 AM AMBULATORY - NEUROLOGY [facility] [place] [facility] Aug 03, 2024 08:30 AM AMBULATORY - MEDICINE [facility] [place] [facility] Sep 17, 2024 09:30 AM AMBULATORY - MEDICINE [facility] Active, Pending, and Scheduled Orders This section includes a listing of several types of active, pending, and scheduled orders, including clinic medications orders, diagnostic test orders, procedure orders and consult orders; where the start date of the order is 45 days before the date of the Encounter or 45 days after the date of theEncounter. The data comes from all [place] treatment facilities. Test Date/Time Test Type Test Details Facility Name Apr 27, 2024 12:00 AM Laboratory - Chemi stry Order OCCULT BLOOD FIT X1 SCREEN (MFP ONLY) STOOL FECES SP [place] [facility] [place] [facility] Social History: Smoking Status (Most current) and Tobacco Use (All prior to encounter date) This section includes the most current, and the historical, smoking and tobacco- related health factors from the [place] facility where the Encounter took place. Current Smoking Status This section includes the most current smoking, or tobacco-related health factor, from the [place] facility where the Encounter took place. Date/Time Current Smoking Status Comment Facil ity Mar 30, 2024 07:00 AM VA-TOBACCO USE FOR TYRONE CIGARETTES [place] [facility] Tobacco Use History This section includes a history of the smoking, or tobacco-related health factors, that were collected on or before the date of the Encounter. The data comes from the [place] facility where the Encounter took place. Date/Time Smoking Status/Tobacco Use Comment F acility Mar 30, 2024 07:00 AM VA-TOBACCO USE FOR TYRONE OTHER TYPE [facility] [place] [facility] Apr 15, 2023 07:00 AM VA-TOBACCO FORMER USER [facility] [place] [facility] Apr 15, 2023 07:00 AM VA-TOBACCO QUIT 15 YRS OR MORE [facility] [place] [facility] Apr 24, 2022 07:00 AM VA-TOBACCO FORMER USER [facility] [place] [facility] Apr 24, 2022 07:00 AM VA-TOBACCO QUIT 15 YRS OR MORE [place] [facility] [place] [facility] Apr 27, 2021 03:00 PM VA-TOBACCO FORMER US[place] [facility] [place] [facility] Apr 27, 2021 03:00 PM VA-TOBACCO QUIT 15 YRS OR MORE [facility] [place] [facility] Mar 17, 2020 03:00 PM VA-TOBACCO FORMER USER [facility] [place] [facility] Mar 17, 2020 03:00 PM VA-TOBACCO QUIT 15 YRS OR MORE [facility] [place] [facility] Mar 31, 2019 09:04 AM VA-TOBACCO FORMER USER [facility] [place] [facility] Mar 31, 2019 09:04 AM VA-TOBACCO QUIT 15 YRS OR MORE [facility] [place] [facility] Encounter Notes: All associated encounter [...] 9 AM Number of group members: 16 Level Vial Curvature Gauger: Marialuisa Salcedo [facility] Group began with a introduction that [...] of irest into daily life. engaged with electronic assembler group leader and group members appropriately, participating in the meditation and reflection time. [place] did not endorse SI/HI. 's intention today is to relax and develop a sense of peace and wisdom. DIAGNOSES: Persistent mood disorder, unspecified PTSD, chronic Cognitive Disorder (History of) Cerebral Infarction, Unspecified [facility] Video Connect (VVC) Standard Documentation V[facility] Clinician Resources Only: E911 (Emergency Call Relay Center): [phone] National Veterans Crisis Line - 988 then press #1. CWNehemias Suicide Coordinator [phone], Ext. [phone]; Back-up Ext. [phone] [place] , Sangeeta CAMPOS [phone] Introduction: Visit is being conducted by [place] [facility] Connect. [place] identified with 2 identifiers: [X] Full Name [X] Date of [ ] VA ID Card Emergency Plan: [place] confirmed and/or provided the following information in case of emergency or technology failure. PATIENT PHONE - PHONE NUMBER [CELLULAR] - Is patient phone number correct, if not, enter below: 's phone number: TAJ SAVANNA DE LA ROSA [address], [place], [address] 's present location and address for appointment: his home 's emergency contact name and phone number: E-Cont.: JUVENCIO DE LA ROSA Relation Type: UNRELATED FRIEND/OTHER Relation Note: OTHERS [address] [place] [address] [facility] reported that location is private and safe: Yes Informed Consent: [place] informed of the risks and benefits of Telehealth video care. [place] has the right to refuse video services. If refuses video visit, a [id number] visit will be scheduled. verbalized consent for this video visit: Yes [place] provided consent for any other persons present for visit: Yes If yes, who and relationship to patient:group Secure visit: Visit was locked for security and privacy:Yes /nicole/ REBECA CARABALLO Curriculum Specialist Signed: 04/22/2024 10:25 MARIALUISA SALCEDO [place] [facility]
--- OUTSIDE RECORDS SUMMARY | 2024-06-01 10:55 | XMS_ITS ---
Author Name [facility] [place] Organization [facility] [place] Address [address] [place] [address] Care Team Providers Care Quality Control Operator Name Role Phone JOSE MANUEL PITT [...] Burgess's Name Patient's Relationship to Policy Burgess [facility] HEALTH PLAN MEDICARE SUPPLEMEN BETY MEDIC ARE SUPPL EMENT A Feb 18, 2022 SUPP1 [id number] GINA DE LA ROSA PATIENT [facility] MED PREFER/SEN IOR CARE MEDICARE SUPPLEMEN BETY MEDIC ARE SUPPL EMENT A Feb 18, 2021 SUPP1 [id number] [phone] GINA DE LA ROSA PATIENT Selected Encounter This section includes the information on record at [place] for the Encounter. Date/Time Encounter Type Encounter Description Reason Provider Source Oct 16, 2023 09:00 AM [facility] ICD-10-CM F43.12 Post-traumati c stress disorder, chronic MARIALUISA SALCEDO Encounter Template Text not used by [place] Assessments - Encounter Diagnoses This section includes the primary and secondary diagnoses documented for the Encounter. Date/Time Primary/Secondary Diagnosis Diagnosis Name Provider Source Oct 16, 2023 10:40 AM PRIMARY Post-traumatic stress disorder, chronic MARIALUISA SALCEDO [place] [facility] [place] [facility] Plan of Treatment: Future Appointments (+ [...] [facility] Oct 28, 2023 07:00 AM AMBULATORY - PSYCHIATRY [facility] [place] [facility] Oct 28, 2023 08:00 AM AMBULATORY - NEUROLOGY [facility] [place] [facility] Oct 28, 2023 09:30 AM AMBULATORY - PSYCHIATRY [facility] [place] [facility] Oct 30, 2023 09:00 AM AMBULATORY - PSYCHIATRY [facility] [place] [facility] Nov 06, 2023 09:00 AM AMBULATORY - PSYCHIATRY [facility] [place] [facility] Nov 13, 2023 09:00 AM AMBULATORY - PSYCHIATRY [facility] [place] [facility] Nov 19, 2023 07:00 AM AMBULATORY - PSYCHIATRY [facility] [place] [facility] Nov 20, 2023 09:00 AM AMBULATORY - PSYCHIATRY [facility] [place] [facility] Nov 27, 2023 09:00 AM AMBULATORY - PSYCHIATRY [facility] [place] [facility] Dec 04, 2023 09:00 AM AMBULATORY - PSYCHIATRY [facility] [place] [facility] Dec 11, 2023 09:00 AM AMBULATORY - PSYCHIATRY [facility] [place] [facility] Dec 16, 2023 09:30 AM AMBULATORY - PSYCHIATRY [facility] [place] [facility] Dec 18, 2023 09:00 AM AMBULATORY - PSYCHIATRY [facility] [place] [facility] Dec 19, 2023 07:30 AM AMBULATORY - MEDICINE [facility] [place] [facility] Dec 23, 2023 07:00 AM AMBULATORY - PSYCHIATRY [place] [facility] [place] [facility] Dec 25, 2023 09:00 AM AMBULATORY - PSYCHIATRY [place] [facility] [place] [facility] Jan 01, 2024 09:00 AM AMBULATORY - PSYCHIATRY [place] [facility] [place] [facility] Jan 08, 2024 09:00 AM AMBULATORY - PSYCHIATRY [place] [facility] [place] [facility] Jan 09, 2024 09:30 AM [facility] Active, Pending, and Scheduled Orders This [...] PM Consult Order COMMUNITY CARE-UROLOGY Cons Director Global Strategic Publisher Sales's [facility] Oct 28, 2023 01:47 PM Consult Order COMMUNITY CARE-NEUROLOGY Cons Director Global Strategic Publisher Sales's Choice [facility] Social History: Smoking Status (Most current) [...] 07:00 AM VA-TOBACCO [facility] Tobacco Use History This section includes a history of the smoking, or tobacco-related health factors, that were collected on or before the date of the Encounter. The data comes from the [place] facility where the Encounter took place. Date/Time Smoking Status/Tobacco Use Comment F acshen Apr 15, 2023 07:00 AM VA-TOBACCO QUIT 15 YRS OR MORE [facility] Apr 24, 2022 07:00 AM VA-TOBACCO FOR[facility] Apr 24, 2022 07:00 AM VA-TOBACCO QUIT 15 YRS OR MORE [facility] [place] [facility] Apr 27, 2021 03:00 PM VA-TOBACCO FORMER USER [facility] [place] [facility] Apr 27, 2021 03:00 PM VA-TOBACCO QUIT 15 YRS OR MORE [facility] [place] [facility] Mar 17, 2020 03:00 PM VA-TOBACCO FORMER USER [facility] [place] [facility] Mar 17, 2020 03:00 PM VA-TOBACCO QUIT 15 YRS OR MORE [facility] [place] [facility] Mar 31, 2019 09:04 AM VA-TOBACCO FORMER USER [facility] [place] [facility] Mar 31, 2019 09:04 AM VA-TOBACCO QUIT 15 YRS OR MORE [facility] [place] [facility] Encounter Notes: All associated encounter notes [...] LENGTH: 60 Number of group members: 10 Check Inspector: Marialuisa Salcedo, COMPLIANCE CONSULTANT Group began with a introduction that iRest [...] meditation. Today's theme was on pure awareness. [place] engaged with dairy inspector and group members appropriately, participating in the meditation and reflection time. [place] did not endorse SI/HI. [place] stated his intention was to relax and find balance, harmony, and well-being. DIAGNOSES: Persistent mood disorder, unspecified PTSD, chronic Cognitive Disorder (History of) Cerebral Infarction, Unspecified VA Video Connect (VVC) Standard Documentation VVC Clinician Resources Only: E911 (Emergency Call Relay Center): [phone] National Veterans Crisis Line - 988 then press #1. [facility] Suicide Coordinator [phone], Ext. [phone]; Back-up Ext. [phone] [place] Police, BETH, Sangeeta [phone] Introduction: Visit is being conducted by [place] [employer] Connect. [place] identified with 2 identifiers: [X] Full Name [X] Date of [ ] VA ID Card Emergency Plan: confirmed and/or provided the following information in case of emergency or technology failure. PATIENT PHONE - PHONE NUMBER [CELLULAR] - Is patient phone number correct, if not, enter below: [place]'s phone number: TAJ DE LA ROSA [address], [place], [address] [place]'s present location and address for appointment: his home [place]'s emergency contact name and phone number: E-Cont.: JUVENCIO DE LA ROSA Relation Type: UNRELATED FRIEND/OTHER Relation Note: [place]ERS [address] [place] [address] [facility] reported that location is private and safe: Yes Informed Consent: informed of the risks and benefits of Telehealth video care. [place] has the right to refuse video services. If refuses video visit, a okxq-yv-fjka visit will be scheduled. [place] verbalized consent for this video visit: Yes [place] provided consent for any other persons present for visit: Yes If yes, who and relationship to patient:group Secure visit: Visit was locked for security and privacy:Yes /nicole/ REBECA CARABALLO Parts Finisher Signed: 10/16/2023 10:41 MARIALUISA SALCEDO [facility]
--- OUTSIDE RECORDS SUMMARY | 2024-06-01 10:55 | XMS_ITS | Encounter Summary ---
Author Name [facility] [place] Organization [facility] Address [address] [place] [address] Care Team Providers Care Chips Screen Tender Name Role Phone JOSE MANUEL PITT [...] Burgess's Name Patient's Relationship to Policy Burgess [facility] PL[facility] MEDICARE SUPPLEMEN BETY MEDIC ARE SUPPL EMENT A Feb 18, 2022 SUPP1 [id number] GINA DE LA ROSA PATIENT [facility] MED PREFER/SEN IOR CARE MEDICARE SUPPLEMEN BETY MEDIC ARE SUPPL EMENT A Feb 18, 2021 SUPP1 [id number] GINA DE LA ROSA PATIENT Selected [...] PRIMARY Post-traumatic stress disorder, chronic MARIALUISA SALCEDO [place] [facility] [place] [facility] Plan of Treatment: Future Appointments (+ [...] AMBULATORY - NEUROLOGY [facility] [place] [facility] Apr 22, 2024 09:00 AM AMBULATORY - PSYCHIATRY [facility] [place] [facility] Apr 29, 2024 09:00 AM AMBULATORY - PSYCHIATRY [facility] [place] [facility] May 04, 2024 07:00 AM AMBULATORY - PSYCHIATRY [facility] [place] [facility] May 04, 2024 10:15 AM AMBULATORY - MEDICINE [facility] [place] [facility] May 06, 2024 09:00 AM AMBULATORY - PSYCHIATRY [facility] [place] [facility] May 14, 2024 09:30 AM AMBULATORY - MEDICINE [facility] May 20, 2024 09:00 AM AMBULATORY - PSYCHIATRY [facility] [place] [facility] May 21, 2024 02:00 PM AMBULATORY - MEDICINE [facility] [place] [facility] May 25, 2024 07:00 AM AMBULATORY - PSYCHIATRY [facility] [place] [facility] Jun 01, 2024 01:00 PM AMBULATORY - PSYCHIATRY [facility] [place] [facility] Jun 03, 2024 09:00 AM AMBULATORY - PSYCHIATRY [facility] [place] [facility] Jun 09, 2024 07:00 AM AMBULATORY - PSYCHIATRY [facility] [place] [facility] Jun 10, 2024 09:00 AM AMBULATORY - PSYCHIATRY [facility] [place] [facility] June 22, 2024 07:00 AM AMBULATORY - PSYCHIATRY [facility] [place] [facility] July 06, 2024 07:00 AM AMBULATORY - [place]CH[place]ATRY [place] [facility] [place] [facility] Jul 20, 2024 09:00 AM AMBULATORY - NEUROLOGY [place] [facility] [place] [facility] Aug 03, 2024 08:30 AM AMBULATORY - MEDICINE [place] [facility] [place] [facility] Sep 17, 2024 09:30 AM AMBULATORY - MED[facility] Active, Pending, and Scheduled Orders This [...] X1 SCREEN (MFP ONLY) STOOL FECES SP [facility] Social History: Smoking Status (Most current) [...] AM VA-TOBACCO USE FOR TYRONE OTHER TYPE [facility] Tobacco Use History This section includes a history of the smoking, or tobacco-related health factors, that were collected on or before the date of the Encounter. The data comes from the [place] facility where the Encounter took place. Date/Time Smoking Status/Tobacco Use Comment F acility Mar 30, 2024 07:00 AM VA-TOBACCO USE FOR TYRONE OTHER TYPE [place] [facility] [place] [facility] Apr 15, 2023 07:00 AM VA-TOBACCO FORMER USER [place] [facility] [place] [facility] Apr 15, 2023 07:00 AM VA-TOBACCO QUIT 15 YRS OR MORE [place] [facility] Apr 24, 2022 07:00 AM VA-TOBACCO FORMER USER [place] [facility] [place] [facility] Apr 24, 2022 07:00 AM VA-TOBACCO QUIT 15 YRS OR MORE [facility] [place] [facility] Apr 27, 2021 03:00 PM VA-TOBACCO FORMER USER [facility] [place] [facility] Apr 27, 2021 03:00 PM VA-TOBACCO QUIT 15 YRS OR MORE [facility] [place] [facility] Mar 17, 2020 03:00 PM VA-TOBACCO FORMER USER [facility] [place] [facility] Mar 17, 2020 03:00 PM VA-TOBACCO QUIT 15 YRS OR MORE [facility] [place] [facility] Mar 31, 2019 09:04 AM VA-TOBACCO FORMER USER [place] [facility] [place] [facility] Mar 31, 2019 09:04 AM VA-TOBACCO QUIT 15 YRS OR MORE [place] [facility] [place] [facility] Encounter Notes: All associated encounter notes [...] 9 AM Number of group members: 15 Grease Press Helper: Marialuisa Salcedo, [facility] Group began with a introduction that iRest [...] theme was on pure awareness. engaged with manager clinic and group members appropriately, participating in the meditation and reflection time. did not endorse SI/HI. [place]'s intention is to relax and develop a sense of peace and self-awareness. Plan: Continue practicing iRest meditation and read An Introduction to iRest workbook. Return to group next week. DIAGNOSES: Persistent mood disorder, unspecified PTSD, chronic Cognitive Disorder (History of) Cerebral Infarction, Unspecified VA Video Connect (VVC) Standard Documentation VVC Clinician Resources Only: E911 (Emergency Call Relay Center): [phone] National Veterans Crisis Line - 988 then press #1. [facility] Suicide Coordinator [phone], Ext. [phone]; Back-up Ext. [phone] [place] Police, BETH, Sangeeta [phone] Introduction: Visit is being conducted by [place] [employer] Connect. [place] [facility] identified with 2 identifiers: [X] Full Name [X] Date of [ ] VA ID Card Emergency Plan: [place] [facility] confirmed and/or provided the following information in case of emergency or technology failure. PATIENT PHONE - PHONE NUMBER [CELLULAR] - Is patient phone number correct, if not, enter below: 's phone number: TAJ DE LA ROSA [address], [place], [address] 's present location and address for appointment: his home [facility] emergency contact name and phone number: E-Cont.: ESTRELLAJUVENCIO Relation Type: UNRELATED FRIEND/OTHER Relation Note: OTHERS [address] [place] [address] [facility] reported that location is private and safe: Yes Informed Consent: informed of the risks and benefits of Telehealth video care. has the right to refuse video services. If refuses video visit, a [id number]-hu-[id number] visit will be scheduled. [place] [facility] verbalized consent for this video visit: Yes [facility] provided consent for any other persons present for visit: Yes If yes, who and relationship to patient:group Secure visit: Visit was locked for security and privacy:Yes /nicole/ REBECA CARABALLO Cosmetics Presser Signed: 04/15/2024 10:34 MARIALUISA SALCEDO [place] [facility]
--- OUTSIDE RECORDS SUMMARY | 2024-06-01 10:55 | XMS_ITS | Patient Health Record ---
Author Organization [facility] Address [address] [place] [id number] Care Team Providers Care Entertainment Reporter Name Role Phone AMY GONZALEZ D.O Primary Care Provider Kristine taylorkathGilbert Haro [phone] Allergies Allergen (clinical drug ingredient) Drug/Non Drug [...] Potassium 100 MG Oral for 90 Active [place] 3 1200 MG 1 capsule Orally Once [...] Problem Status W/U Status Risk Notes Problem 354611156 Encounter for screening for malignant neoplasm of colon (Z12.11) Active confirmed Problem History of adenomatous polyp of colon (876189456) History of adenomatous polyp of colon (Z86.010) Active confirmed Problem 67484771 Abdominal pain, epigastric (R10.13) Active confirmed Problem 690573883 Elevated liver function tests (R79.89) Active confirmed Problem 799746907 Diverticulosis (K57.90) Active confirmed Problem 73777621 Oropharyngeal dysphagia (R13.12) Active confirmed Problem 248403401 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) Active confirmed Problem 95531771 Pharyngoesophage al dysphagia (R13.14) Active confirmed Problem Esophageal reflux finding (721732815) Gastroesophageal reflux (K21.9) Active confirmed Problem 504530982 Abdominal pain, generalized (R10.84) Active confirmed Problem 90217578 Upper abdominal pain (R10.10) Active confirmed Problem Diverticulosis of colon (193101868) Diverticulosis of colon (K57.30) Active confirmed Problem 51271747 Chest pain, unspecified type (R07.9) Active confirmed Problem History of gastrointestinal tract bypass (277604889) Hx of Billroth II operation (Z98.0) Active confirmed Plan Of Treatment Pending Test Test Name Order Date LIVER PROFILE 09/10/2022 LIVER PROFILE 09/19/2022 CBC w DIFF 09/19/2022 CBC w DIFF 09/10/2022 XR BARIUM SWALLOW-ESOPHAGUS 09/19/2022 XR GI SERIES 09/19/2022 Prothrombin Time INR 09/19/2022 Amylase 09/10/2022 Amylase 09/19/2022 Lipase 09/19/2022 Lipase 09/10/2022 US abdomen complete 09/10/2022 Future Test Test Name Order Date COLONOSCOPY 02/04/2014 UPPER GI ENDOSCOPY 02/23/2021 COLONOSCOPY 09/05/2021 Insurance Providers Payer Name Payer Address Payer Phone Subscriber Number Group Number Insured Name Patient Relationship to Insured Coverage Start Date Coverage End Date MEDICARE OF [place] [address] [place] [id number] [phone] [id number] TAJ DE LA ROSA Self - patient is the insured [employer] PREFERRED [address] [place] [address] [id number] TAJ DE LA ROSA Self - patient [...] 10/2016--had an EGD at that time at [facility]; describes a neg. UGI at [facility] in 09/2017 for abdominal pain CVA's [...] work in regard to any sign of [place]--Dr. 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
--- OUTSIDE RECORDS SUMMARY | 2024-06-01 10:55 | XMS_ITS | Encounter Summary ---
Author Name [place] Address [address] [place] [address] Care Team Providers Care Nurse Discharge Planner Name Role Phone JOSE MANUEL PITT Primary [...] Patient's Relationship to Policy Burgess [facility] PLAN MEDICARE SUPPLEMEN BETY MEDIC ARE SUPPL EMENT A Feb 18, 2022 SUPP1 [id number] GINA DE LA ROSA PATIENT [facility] MED PREFER/SEN IOR CARE MEDICARE SUPPLEMEN BETY MEDIC ARE SUPPL EMENT A Feb 18, 2021 SUPP1 [id number] [phone] GINA DE LA ROSA PATIENT Selected [...] Persistent mood [affective] disorder, unspecified MARIALUISA SALCEDO [place] [facility] [place] [facility] Dec 18, 2023 10:25 AM SECONDARY Post-traumatic stress disorder, chronic MARIALUISA SALCEDO [place] [facility] [facility] Plan of Treatment: Future Appointments (+ 6 [...] MEDICINE [place] [facility] [facility] Dec 23, 2023 07:00 AM AMBULATORY - PSYCHIATRY [place] [facility] [place] [facility] Dec 25, 2023 09:00 AM AMBULATORY - PSYCHIATRY [facility] [place] [facility] Jan 01, 2024 09:00 AM AMBULATORY - PSYCHIATRY [facility] [place] [facility] Jan 08, 2024 09:00 AM AMBULATORY - PSYCHIATRY [facility] [place] [facility] Jan 09, 2024 09:30 AM AMBULATORY - MEDICINE [facility] Jan 14, 2024 07:00 AM AMBULATORY - PSYCHIATRY [facility] [place] [facility] Jan 20, 2024 08:30 AM AMBULATORY - NEUROLOGY [facility] [place] [facility] Jan 22, 2024 09:00 AM AMBULATORY - PSYCHIATRY [facility] [place] [facility] Jan 27, 2024 01:30 PM AMBULATORY - PSYCHIATRY [facility] [place] [facility] Jan 29, 2024 09:00 AM AMBULATORY - PSYCHIATRY [facility] [place] [facility] Feb 05, 2024 09:00 AM AMBULATORY - PSYCHIATRY [facility] [place] [facility] Feb 10, 2024 07:00 AM AMBULATORY - PSYCHIATRY [facility] [place] [facility] Feb 24, 2024 07:00 AM AMBULATORY - PSYCHIATRY [facility] [place] [facility] Mar 04, 2024 09:00 AM AMBULATORY - PSYCHIATRY [facility] [place] [facility] Mar 11, 2024 09:00 AM AMBULATORY - PSYCHIATRY [facility] [place] [facility] Mar 18, 2024 09:00 AM AMBULATORY - PS[facility]IATRY [facility] [place] [facility] Mar 25, 2024 09:00 AM AMBULATORY - PSYCHIATRY [facility] [place] [facility] Mar 30, 2024 07:00 AM AMBULATORY - PSYCHIATRY [facility] [place] [facility] Mar 30, 2024 01:00 PM AMBULATORY - PSYCHIATRY [place] [facility] [facility] Lab Results: +/- 30 days of the [...] Type Comment Dec 19, 2023 07:55 AM [facility] FOLATE (WROX) SERUM Specimen Type: SERUM No comment entered. Ordering Provider: SALLY PIERRE Report Released Date/Time: Oct 28, 2023 09:59 AM Reporting Lab: [facility] [place] [facility] [address] [address] Performing Lab: [facility] [address] [address] FOLATE (WROX) 9.07 ng/mL >5.2 Dec 19, 2023 07:55 AM [facility] TSH SERUM Specimen Type: SERUM No comment entered. Ordering Provider: SALLY PIERRE Report Released Date/Time: Oct 28, 2023 09:59 AM Reporting Lab: [facility] [address] [address] Performing Lab: [facility] [address] [address] TSH 1.09 u[IU]/mL 0.35-5.00 Dec 19, 2023 07:55 AM [facility] VITAMIN D (25-OH) SERUM Specimen Type: SERUM No comment entered. Ordering Provider: SALLY PIERRE Report Released Date/Time: Oct 28, 2023 09:59 AM Reporting Lab: [facility] [address] [address] Performing Lab: [address] [address] VITAMIN D (25-OH) 38 ng/mL 20-50 Dec 19, 2023 07:55 AM [facility] VITAMIN B12 SERUM Specimen Type: SERUM No comment entered. Ordering Provider: SALLY PIERRE Report Released Date/Time: Oct 28, 2023 09:59 AM Reporting Lab: [address] [address] Performing Lab: [address] [address] VITAMIN B12 297 pg/mL 200-900 Dec 19, 2023 07:55 AM [facility] LIPID PANEL FASTING SERUM Specimen Type: SERU M No comment entered. Ordering Provider: SALLY PIERRE Report Released Date/Time: Dec 16, 2023 09:50 AM Reporting Lab: [address] [address] Performing Lab: [address] [address] CHOLESTEROL 113 mg/dL TRIGLYCERIDE 85 mg/dL 0-150 LDL calculated 50 mg/dL 0-129 CHOL/HDL 2.5 HDL CHOLESTEROL 46 mg/dL 40-60 Dec 19, 2023 07:55 AM [facility] HEMOGLOBIN A1C PANEL BLOOD Specimen Type: [...] 16, 2023 09:50 AM Reporting Lab: [address] [address] Performing Lab: [address] [address] HEMOGLOBIN A1C 5.5 4.0-5.6 Dec 19, 2023 07:55 AM [facility] BASIC METABOLIC PANEL (fasting) SERUM Specime n Type: SERUM No comment entered. Ordering Provider: SALLY PIERRE Report Released Date/Time: Dec 16, 2023 09:50 AM Reporting Lab: [address] [address] Performing Lab: [address] [address] UREA NITROGEN 18 mg/dL 7-25 GLUCOSE 117 [...] 15, 2023 07:00 AM VA-TOBACCO FORMER USER [facility] Tobacco Use History This section includes a history of the smoking, or tobacco-related health factors, that were collected on or before the date of the Encounter. The data comes from the [place] facility where the Encounter took place. Date/Time Smoking Status/Tobacco Use Comment F acility Apr 15, 2023 07:00 AM [place]-TOBAC[place] QUIT 15 YRS OR MORE [facility] Apr 24, 2022 07:00 AM VA-TOBACCO FORMER USER [facility] [place] [facility] Apr 24, 2022 07:00 AM VA-TOBACCO QUIT 15 YRS OR MORE [facility] [place] [facility] Apr 27, 2021 03:00 PM VA-TOBACCO FORMER USER [facility] [place] [facility] Apr 27, 2021 03:00 PM VA-TOBACCO QUIT 15 YRS OR MORE [facility] [place] [facility] Mar 17, 2020 03:00 PM VA-TOBACCO FORMER USER [facility] [place] [facility] Mar 17, 2020 03:00 PM VA-TOBACCO QUIT 15 YRS OR MORE [facility] [place] [facility] Mar 31, 2019 09:04 AM VA-TOBACCO FORMER USER [facility] [place] [facility] Mar 31, 2019 09:04 AM VA-TOBACCO QUIT 15 YRS OR MORE [facility] [place] [facility] Encounter Notes: All associated encounter notes This [...] 9 AM Number of group members: 12 Patrol Officer: Marialuisa Salecdo [facility] Group began with a introduction [...] on integration of iRest into daily life. [place]ta engaged with return to service inspector and group members appropriately, participating in the meditation and reflection time. [place] did not endorse SI/HI. [place]ta's intention was to reduce pain and anxiety. DIAGNOSES: Persistent mood disorder, unspecified PTSD, chronic Cognitive Disorder (History of) Cerebral Infarction, Unspecified [facility] Video Connect (VVC) Standard Documentation VVC Clinician Resources Only: E911 (Emergency Call Relay Center): [phone] National Veterans Crisis Line - 988 then press #1. CWM Suicide Coordinator [phone], Ext. [phone]; Back-up Ext. [phone] [place] Police, BETH, Sangeeta [phone] Introduction: Visit is being conducted by [place] [employer]. [place]ta identified with 2 identifiers: [X] Full Name [X] Date of [ ] VA ID Card Emergency Plan: [place] confirmed and/or provided the following information in case of emergency or technology failure. PATIENT PHONE - PHONE NUMBER [CELLULAR] - Is patient phone number correct, if not, enter below: 's phone number: TAJ DE LA ROSA [address], [place], [address] 's present location and address for appointment: his home Tuleta's emergency contact name and phone number: E-Cont.: JUVENCIO DE LA ROSA Relation Type: UNRELATED FRIEND/OTHER Relation Note: OTHERS [address] [place] [address] [facility] reported that location is private and safe: Yes Informed Consent: [place] informed of the risks and benefits of Telehealth video care. has the right to refuse video services. If refuses video visit, a nsaj-am-bpjz visit will be scheduled. verbalized consent for this video visit: Yes [place] provided consent for any other persons present for visit: Yes If yes, who and relationship to patient:group Secure visit: Visit was locked for security and privacy:Yes /nicole/ REBECA CARABALLO Wet And Dry Sugar Bin Operator Signed: 12/18/2023 10:29 MAR[facility]UISA SALCEDO [place] [facility]
--- OUTSIDE RECORDS SUMMARY | 2024-06-01 10:56 | XMS_ITS | Encounter Summary ---
Author Name [place] Address [address] [place] [address] Care Team Providers Care Physician Office Nurse Name Role Phone JOSE MANUEL PITT Primary [...] SUPPL EMENT A Feb 18, 2022 SUPP1 [id number] GINA DE LA ROSA PATIENT [facility] MED PREFER/SEN IOR CARE MEDICARE SUPPLEMEN BETY MEDIC ARE SUPPL EMENT A Feb 18, 2021 SUPP1 [id number] GINA DE LA ROSA PATIENT Selected Encounter This section includes the information on record at [place] for the Encounter. Date/Time Encounter Type Encounter Description Reason Provider Source May 25, 2024 07:00 AM PSYTX W PT 45 MINUTES [facility] - IND ICD-10-CM F43.12 Post-traumatic stress disorder, chronic MOISES PADILLA Encounter Template Text not used by [place] Assessments - Encounter Diagnoses This section includes the primary and secondary diagnoses documented for the Encounter. Date/Time Primary/Secondary Diagnosis Diagnosis Name Provider Source May 25, 2024 08:02 AM PRIMARY Post-traumatic stress disorder, chronic MOISES PAD[facility]A [facility] [place] [facility] May 25, 2024 08:02 AM SECONDARY Cerebral infarction, unspecified MOISES PADILLA [facility] [place] [facility] May 25, 2024 08:02 AM SECONDARY Persistent mood [affective] disorder, unspecified MOISES PADILLA [facility] [place] [facility] May 25, 2024 08:02 AM SECONDARY Unsp symptoms and signs w cognitive functions and awareness MOISES PADILLA [facility] Plan of Treatment: Future Appointments (+ 6 months) and Future Tests (+/- 45 days) The Plan of Treatment section includes future care activities for the patient from all [place] [facility]. This section includes future appointments and future orders which are active, pending or scheduled. Future Appointments This section includes appointments that were scheduled to occur 6 months from the date of the Encounter, up to a maximum of 20 appointments. The data comes from all [place] treatment facilities. Appointment Date/Time Appointment Type Appointme nt Facility Name Jun 01, 2024 01:00 PM AMBULATORY - PSYCHIATRY [place] [facility] [facility] Jun 03, 2024 09:00 AM AMBULATORY - PS[place]CHIATRY [place] [facility] [facility] Jun 09, 2024 07:00 AM AMBULATORY - PSYCHIATRY [place] [facility] [place] [facility] Jun 10, 2024 09:00 AM AMBULATORY - PSYCHIATRY [place] [facility] [place] [facility] June 22, 2024 07:00 AM AMBULATORY - PSYCHIATRY [place] [facility] [facility] July 06, 2024 07:00 AM AMBULATORY - PSYCHIATRY [place] [facility] [place] [facility] Jul 20, 2024 09:00 AM AMBULATORY - NEUROLOGY [place] [facility] [place] [facility] Aug 03, 2024 08:30 AM AMBULATORY - MEDICINE [facility] [facility] Sep 17, 2024 09:30 AM AMBULATORY - MEDICINE [facility] Active, Pending, and Scheduled Orders This [...] 27, 2024 12:00 AM Laboratory - Chemi strpreeti Order OCCULT BLOOD FIT X1 SCREEN (MFP ONLY) STOOL FECES SP [place] [facility] [place] [facility] Social History: [...] AM VA-TOBACCO USE FOR T[facility]ONE OTHER [facility] Tobacco Use History This section includes a history of the smoking, or tobacco-related health factors, that were collected on or before the date of the Encounter. The data comes from the [place] facility where the Encounter took place. Date/Time Smoking Status/Tobacco Use Comment F acility Mar 30, 2024 07:00 AM VA-TOBACCO USE FOR TYRONE OTHER TYPE [place] [facility] [place] [facility] Apr 15, 2023 07:00 AM VA-TOBACCO FORMER USER [place] [facility] [place] [facility] Apr 15, 2023 07:00 AM VA-TOBACCO QUIT 15 YRS OR MORE [place] [facility] [place] [facility] Apr 24, [...] PM VA-TOBACCO QUIT 15 YRS OR MORE [facility] [place] [facility] Mar 31, 2019 09:04 AM VA-TOBACCO [facility] Mar 31, 2019 09:04 AM [place]-TOBAC[place] QUIT [facility] YRS OR [facility] Encounter Notes: All associated encounter notes This section contains the clinical notes associated to the Encounter. Date/Time Encounter Note(s) Provider Source May 25, 2024 06:48 AM PSYCHOLOGY NOTE: LOCAL TITLE: PSYCHOLOGY NOTE STANDARD TITLE: PSYCHOLOGY NOTE DATE OF NOTE: MAY 25, 2024@06:48 ENTRY DATE: MAY 25, 2024@06:48:12 AUTHOR: MOISES PADILLA COSIGNER: URGENCY: STATUS: COMPLETED [...] his behavioral activation/coping skill goals. SESSION FOCUS: Aury was happy to share an update that although he continue to suffer through chemotherapy, we are doing better than we were at the last time. 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 Aury spoke to the mixed emotions that he has been feeling, noting relief, as well as anxiety. I'm just waiting for the other shoe to drop he admitted. Empathy and validation for the situation given throughout. He shared the medical plan and side effects progress and setbacks. We spoke about how he has been managing the triggering experience of listening to Carlyn repetitively tell others about the story of getting cancer. Aury was able to communicate to her in a skillful way, that it is too difficult for him to hear. Now, when he gets up to leave, she is less likely to be offended. Aury was praised for his execution of this plan, and we spoke about the projects that he has been working on as a form of distraction when he does leave. Lastly, Aury elaborated on a recent family constitution party, involving the people who are in a feud with Carlyn ([place]'s side of the family). Although he described tense moments, and he did assertively stand up for Carlyn to his brother, it appeared that people felt sympathy for her when they learned for the first time that she has cancer. [place] and this provider spoke of ways that they can work towards a resolution, rather than continuing down a path of retaliatory anger. ASSESSMENT: BRIEF ASSESSMENT OF MENTAL STATUS: 1. [...] ssns e/o/w (during heightened stress): 0700 Tuesdays /es/ Moises Padilla PsyD Staff Psychologist Signed: 05/25/2024 08:02 MOISES PADILLA [facility]
--- OUTSIDE RECORDS SUMMARY | 2024-06-01 10:56 | XMS_ITS | Encounter Summary ---
Author Name [place] Address [address] [place] [address] Care Team Providers Care Integration Director Name Role Phone JOSE MANUEL PITT [...] Burgess's Name Patient's Relationship to Policy Burgess [facility] HEALTH PLAN MEDICARE SUPPLEMEN BETY MEDIC ARE SUPPL EMENT A Feb 18, 2022 SUPP1 [id number] GINA DE LA ROSA PATIENT [facility] MED PREFER/SEN IOR CARE MEDICARE SUPPLEMEN BETY MEDIC ARE SUPPL EMENT A Feb 18, 2021 SUPP1 [id number] GINA DE LA ROSA PATIENT Selected [...] chronic MARIALUISA SALCEDO [place] [facility] [place] [facility] Plan of Treatment: Future Appointments (+ [...] - PSYCHIATRY [place] [facility] [facility] Oct 02, 2023 09:00 AM AMBULATORY - PSYCHIATRY [place] [facility] [place] [facility] Oct 09, 2023 09:00 AM AMBULATORY - PSYCHIATRY [place] [facility] [place] [facility] Oct 16, 2023 09:00 AM AMBULATORY - PSYCHIATRY [place] [facility] [place] [facility] Oct 23, 2023 09:00 AM AMBULATORY - PSYCHIATRY [place] [facility] [place] [facility] Oct 28, 2023 07:00 AM AMBULATORY - PSYCHIATRY [place] [facility] [place] [facility] Oct 28, 2023 08:00 AM AMBULATORY - NEUROLOGY [place] [facility] [place] [facility] Oct 28, 2023 09:30 AM AMBULATORY - PSYCHIATRY [place] [facility] [place] [facility] Oct 30, 2023 09:00 AM AMBULATORY - PSYCHIATRY [place] [facility] [place] [facility] Nov 06, 2023 09:00 AM AMBULATORY - PSYCHIATRY [place] [facility] [place] [facility] Nov 13, 2023 09:00 AM AMBULATORY - PSYCHIATRY [facility] [place] [facility] Nov 19, 2023 07:00 AM AMBULATORY - PSYCHIATRY [place] [facility] [place] [facility] Nov 20, 2023 09:00 AM AMBULATORY - PSYCHIATRY [facility] [place] [facility] Nov 27, 2023 09:00 AM AMBULATORY - PSYCHIATRY [place] [facility] [place] [facility] Dec 04, 2023 09:00 AM AMBULATORY - PSYCHIATRY [place] [facility] [place] [facility] Dec 11, 2023 09:00 AM AMBULATORY - PSYCHIATRY [place] [facility] [place] [facility] Dec 16, 2023 09:30 AM AMBULATORY - PSYCHIATRY [place] [facility] [place] [facility] Dec 18, 2023 09:00 AM AMBULATORY - PSYCHIATRY [place] [facility] [place] [facility] Dec 19, 2023 07:30 AM AMBULATORY - MEDICINE [place] C [place]TRL [place] [facility] Dec 23, 2023 07:00 AM AMBULATORY - PS[facility]CHIATRY [facility] Active, Pending, and Scheduled Orders This section includes a listing of several types of active, pending, and scheduled orders, including clinic medications orders, diagnostic test orders, procedure orders and consult orders; where the start date of the order is 45 days before the date of the Encounter or 45 days after the date of theEncounter. The data comes from all [place] treatment facilities. 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[facility] [place] [facility] Oct 28, 2023 01:47 PM Consult Order COMMUNITY CARE-NEUROLOGY Cons Commercial Carpet Installer's [facility] Social History: Smoking Status (Most current) [...] 2023 07:00 AM VA-TOBACCO [facility] Tobacco Use History This section includes a history of the smoking, or tobacco-related health factors, that were collected on or before the date of the Encounter. The data comes from the [place] facility where the Encounter took place. Date/Time Smoking Status/Tobacco Use Comment F acshen Apr 15, 2023 07:00 AM VA-TOBACCO QUIT 15 YRS OR MORE [facility] [place] [facility] Apr 24, 2022 07:00 AM VA-TOBACCO [facility] [place] [facility] Apr 24, 2022 07:00 AM VA-TOBACCO QUIT 15 YRS OR MORE [place] [facility] [place] [facility] Apr 27, 2021 03:00 PM VA-TOBACCO FORMER USER [facility] [place] [facility] Apr 27, 2021 03:00 PM VA-TOBACCO QUIT 15 YRS OR MORE [facility] [place] [facility] Mar 17, 2020 03:00 PM VA-TOBACCO FORMER USER [place] [facility] [place] [facility] Mar 17, 2020 03:00 PM VA-TOBACCO QUIT 15 YRS OR MORE [facility] [place] [facility] Mar 31, 2019 09:04 AM VA-TOBACCO FORMER USER [place] [facility] [place] [facility] Mar 31, 2019 09:04 AM VA-TOBACCO QUIT 15 YRS OR MORE [facility] [place] [facility] Encounter Notes: All associated encounter notes [...] 9 AM Number of group members: 9 Pie Dough Roller: Marialuisa Salcedo, [facility] Group began with a introduction that iRest [...] acceptance-based skills with difficult emotions and thoughts. [place] shared comments, observations, and questions at the conclusion of the meditation. Today's theme was on emotions and feelings. [place] engaged with engraver optical frames and group members appropriately, participating in the meditation and reflection time. did not endorse SI/HI. [place]'s intention was to increase motivation and gain better understanding on emotions and reactivity. DIAGNOSES: Persistent mood disorder, unspecified PTSD, chronic Cognitive Disorder (History of) Cerebral Infarction, Unspecified [place] Video Connect (VVC) Standard Documentation VVC Clinician Resources Only: E911 (Emergency Call Relay Center): [phone] National Veterans Crisis Line - 988 then press #1. [facility] Suicide Coordinator [phone], Ext. [phone]; Back-up Ext. [phone] [place] Police, BETH, Sangeeta [phone] Introduction: Visit is being conducted by [place] [employer]. identified with 2 identifiers: [X] Full Name [X] Date of [ ] VA ID Card Emergency Plan: [place] confirmed and/or provided the following information in case of emergency or technology failure. PATIENT PHONE - PHONE NUMBER [CELLULAR] - Is patient phone number correct, if not, enter below: 's phone number: TAJ DE LA ROSA [address], [place], [address] 's present location and address for appointment: his home 's emergency contact name and phone number: E-Cont.: JUVENCIO DE LA ROSA Relation Type: UNRELATED FRIEND/OTHER Relation Note: OTHERS [address] [place] [address] [facility] [place] reported that location is private and safe: Yes Informed Consent: informed of the risks and benefits of Telehealth video care. has the right to refuse video services. If refuses video visit, a lxhs-ac-hoth visit will be scheduled. [place] verbalized consent for this video visit: Yes [place] provided consent for any other persons present for visit: Yes If yes, who and relationship to patient:group Secure visit: Visit was locked for security and privacy:Yes /nicole/ REBECA CARABALLO Name Plate Stamping Machine Operator Signed: 09/25/2023 10:34 MARIALUISA SALCEDO CNTRL WSN [facility]
--- OUTSIDE RECORDS SUMMARY | 2024-06-01 10:56 | XMS_ITS | Encounter Summary ---
Author Name [facility] [place] Address [address] [place] [address] Care Team Providers Care Nut Sheller Name Role Phone JOSE MANUEL PITT Primary [...] SUPPL EMENT A Feb 18, 2022 SUPP1 [id number] GINA DE LA ROSA PATIENT [facility] PREFER/SEN IOR CARE MEDICARE SUPPLEMEN BETY MEDIC ARE SUPPL EMENT A Feb 18, 2021 SUPP1 [id number] GINA DE LA ROSA PATIENT Selected Encounter This section includes the information on record at [place] for the Encounter. Date/Time Encounter Type Encounter Description Reason Provider Source Jan 27, 2024 01:30 PM OFFICE O/P EST MOD 30 MIN [facility] - IND ICD-10-CM F34.9 Persistent mood [affective] disorder, unspecified [facility] Encounter Template Text not used by [place] Assessments - Encounter Diagnoses This section includes the primary and secondary diagnoses documented for the Encounter. Date/Time Primary/Secondary Diagnosis Diagnosis Name Provider Source Jan 28, 2024 03:37 PM PRIMARY Persistent mood [affective] disorder, unspecified [facility] [place] [facility] [place] [facility] Jan 28, 2024 03:37 PM SECONDARY Post-traumatic stress disorder, chronic [facility] [place] [facility] [place] [facility] Jan 28, 2024 03:37 PM SECONDARY Unsp symptoms and signs w cognitive functions and awareness [facility] [place] [place] [facility] [place] [facility] Plan of Treatment: Future Appointments (+ 6 months) and Future Tests (+/- 45 days) The Plan of Treatment section includes future care activities for the patient [facility] [place] [facility] This section includes future appointments and future [...] AMBULATORY - PSYCHIATRY [facility] [place] [facility] Feb 05, 2024 09:00 AM AMBULATORY - PSYCHIATRY [facility] [place] [facility] Feb 10, 2024 07:00 AM AMBULATORY - PSYCHIATRY [facility] [place] [facility] Feb 24, 2024 07:00 AM AMBULATORY - PSYCHIATRY [facility] [place] [facility] Mar 04, 2024 09:00 AM AMBULATORY - PSYCHIATRY [facility] [place] [facility] Mar 11, 2024 09:00 AM AMBULATORY - PSYCHIATRY [facility] [place] [facility] Mar 18, 2024 09:00 AM AMBULATORY - PSYCHIATRY [facility] [place] [facility] Mar 25, 2024 09:00 AM AMBULATORY - PSYCHIATRY [facility] [place] [facility] Mar 30, 2024 07:00 AM AMBULATORY - PSYCHIATRY [facility] [place] [facility] Mar 30, 2024 01:00 PM AMBULATORY - PSYCHIATRY [facility] [place] [facility] Apr 01, 2024 09:00 AM AMBULATORY - PSYCHIATRY [facility] [place] [facility] Apr 08, 2024 09:00 AM AMBULATORY - PSYCHIATRY [facility] [place] [facility] Apr 13, 2024 07:00 AM AMBULATORY - PSYCHIATRY [facility] [place] [facility] Apr 15, 2024 09:00 AM AMBULATORY - PSYCHIATRY [facility] [place] [facility] Apr 20, 2024 09:00 AM AMBULATORY - NEUROLOGY [facility] [place] [facility] Apr 22, 2024 09:00 AM AMBULATORY - PSYCHIATRY [facility] [place] [facility] Apr 29, 2024 09:00 AM AMBULATORY - PSYCHIATRY [facility] [place] [facility] May 04, 2024 07:00 AM AMBULATORY - PSYCHIATRY [facility] [place] [facility] May 04, 2024 10:15 AM AMBULATORY - MEDICINE [facility] [place] [facility] May 06, 2024 09:00 AM AMBULATORY - PSYCHIATRY [facility] [place] [facility] Social History: Smoking Status (Most current) and Tobacco Use (All prior to encounter date) This section includes the most current, and the historical, smoking and tobacco- related health factors from the [place] facility where the Encounter took place. Current Smoking Status This section includes the most current smoking, or tobacco-related health factor, from the [place] facility where the Encounter took place. Date/Time Current Smoking Status Comment Nurys ity Apr 15, 2023 07:00 AM VA-TOBACCO FORMER USER [place] [facility] [place] [facility] Tobacco Use History This section includes a history of the smoking, or tobacco-related health factors, that were collected on or before the date of the Encounter. The data comes from the [place] facility where the Encounter took place. Date/Time Smoking Status/Tobacco Use Comment F acility Apr 15, 2023 07:00 AM VA-TOBACCO QUIT 15 YRS OR MORE [facility] [place] [facility] Apr 24, 2022 07:00 AM VA-TOBACCO FORMER USER [facility] [place] [facility] Apr 24, 2022 07:00 AM VA-TOBACCO QUIT 15 YRS OR MORE [facility] [place] [facility] Apr 27, 2021 03:00 PM VA-TOBACCO FORMER USER [facility] [place] [facility] Apr 27, 2021 03:00 PM VA-TOBACCO QUIT 15 YRS OR MORE [facility] [place] [facility] Mar 17, 2020 03:00 PM VA-TOBACCO FORMER USER [facility] [place] [facility] Mar 17, 2020 03:00 PM VA-TOBACCO QUIT 15 YRS OR MORE [place] [facility] [place] [facility] Mar 31, 2019 09:04 AM VA-TOBACCO FORMER USER [facility] [place] [facility] Mar 31, 2019 09:04 AM VA-TOBACCO QUIT 15 YRS OR MORE [place] [facility] [place] [facility] Encounter Notes: All associated encounter notes [...] CARRILLO Y Hemiparesis I69.959 10/07/2020 MIGUEL CARRILLO Polyneuropathy G62.9 [...] suicide attempt in 2005 and hospitalization at [facility] (overdose on morphine), also with [...] dose of trazodone, but continued to have 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 Other pertinent medical hx includes CAD, s/p AR, s/p stents. Poorly controlled DM. Neuropathy, chronic [...] this [facility] (local) and dispensed from another [place] or [facility] facility (remote) as well as inpatient [...] provider. Problem List was reviewed and updated. AIMS Testing: AIMS (Mental Health Instrument) The patient was evaluated for symptoms of tardive dyskinesia using the AIMS. Total score for items 1-7: 1 /es/ SALLY PIERRE PSYCHIATRIST Signed: 01/28/2024 15:37 [place] [facility]
--- OUTSIDE RECORDS SUMMARY | 2024-06-01 10:56 | XMS_ITS | Encounter Summary ---
Author Name Department of [facility] [place] [facility] [place] Organization Department of [place] Address [address] [place] [address] Care Team Providers Care Associate Account Manager Name Role Phone JOSE MANUEL PITT [...] SUPPL EMENT A Feb 18, 2022 SUPP1 [id number] [phone] GINA DE LA ROSA PATIENT [facility] MED PREFER/SEN IOR CARE MEDICARE SUPPLEMEN BETY MEDIC ARE SUPPL EMENT A Feb 18, 2021 SUPP1 [id number] GINA DE LA ROSA PATIENT Selected [...] chronic MARIALUISA SALCEDO [place] [facility] [place] [facility] Plan of Treatment: Future Appointments (+ 6 months) and Future Tests (+/- 45 days) The Plan of Treatment section includes future care activities for the patient from all [place] treatmentfacilities. This section includes future appointments and [...] AMBULATORY - PSYCHIATRY [facility] [place] [facility] Nov 20, 2023 09:00 AM AMBULATORY - PSYCHIATRY [facility] [place] [facility] Nov 27, 2023 09:00 AM AMBULATORY - PSYCHIATRY [facility] [place] [facility] Dec 04, 2023 09:00 AM AMBULATORY - PSYCHIATRY [facility] [place] [facility] Dec 11, 2023 09:00 AM AMBULATORY - PSYCHIATRY [facility] [place] [facility] Dec 16, 2023 09:30 AM AMBULATORY - PSYCHIATRY [facility] [place] [facility] Dec 18, 2023 09:00 AM AMBULATORY - PSYCHIATRY [facility] [place] [facility] Dec 19, 2023 07:30 AM AMBULATORY - MEDICINE [facility] [place] [facility] Dec 23, 2023 07:00 AM AMBULATORY - PSYCHIATRY [facility] [place] [facility] Dec 25, 2023 09:00 AM AMBULATORY - PSYCHIATRY [facility] [place] [facility] Jan 01, 2024 09:00 AM AMBULATORY - PSYCHIATRY [facility] [place] [facility] Jan 08, 2024 09:00 AM AMBULATORY - PSYCHIATRY [facility] [place] [facility] Jan 09, 2024 09:30 AM AMBULATORY - MEDICINE [facility] Jan 14, 2024 07:00 AM AMBULATORY - PSYCHIATRY [facility] [place] [facility] Jan 20, 2024 08:30 AM AMBULATORY - NEUROLOGY [facility] [place] [facility] Jan 22, 2024 09:00 AM AMBULATORY - PSYCHIATRY [place] [facility] [place] [facility] Jan 27, 2024 01:30 PM AMBULATORY - PSYCHIATRY [place] [facility] [place] [facility] Jan 29, 2024 09:00 AM AMBULATORY - PSYCHIATRY [place] [facility] [place] [facility] Feb 05, 2024 09:00 AM [facility] [place] [facility] Feb 10, 2024 07:00 AM AMBULATORY [facility] Active, Pending, and Scheduled Orders This [...] 02:36 PM Consult Order COMMUNITY CARE-UROLOGY Cons Submarine Cable Equipment Technician's Choice [facility] Oct 28, 2023 01:47 PM Consult Order COMMUNITY CARE-NEUROLOGY Cons Submarine Cable Equipment Technician's Choice [facility] Social History: Smoking Status (Most current) [...] [facility] Tobacco Use History This section includes a history of the smoking, or tobacco-related health factors, that were collected on or before the date of the Encounter. The data comes from the [place] facility where the Encounter took place. Date/Time Smoking Status/Tobacco Use Comment F acshen Apr 15, 2023 07:00 AM VA-TOBACCO QUIT 15 YRS OR MORE [facility] Apr 24, 2022 07:00 AM VA-TOBACCO FORMER USER [facility] Apr 24, 2022 07:00 AM VA-TOBACCO QUIT 15 YRS OR MORE [facility] [place] [facility] Apr 27, 2021 03:00 PM VA-TOBACCO FORMER USER [facility] [place] [facility] Apr 27, 2021 03:00 PM VA-TOBACCO QUIT 15 YRS OR MORE [facility] [place] [facility] Mar 17, 2020 03:00 PM VA-TOBACCO FORMER USER [facility] [place] [facility] Mar 17, 2020 03:00 PM VA-TOBACCO QUIT 15 YRS OR MORE [facility] [place] [facility] Mar 31, 2019 09:04 AM VA-TOBACCO FORMER USER [facility] [place] [facility] Mar 31, 2019 09:04 AM VA-TOBACCO QUIT 15 YRS OR MORE [facility] [place] [facility] Encounter Notes: All associated encounter notes [...] Time: 9 AM Number of group members: Dcs Engineer: Marialuisa Salcedo, [facility] Group began with a introduction that [...] on body and breath sensing. engaged with microsoft developer and group members appropriately, participating in the meditation and reflection time. [place] did not endorse SI/HI. 's intention was to become more aware of the breath as a tool during the meditation and daily life. DIAGNOSES: Persistent mood disorder, unspecified PTSD, chronic Cognitive Disorder (History of) Cerebral Infarction, Unspecified MD Video Connect (VVC) Standard Documentation VVC Clinician Resources Only: E911 (Emergency Call Relay Center): [phone] National Veterans Crisis Line - 988 then press #1. CLEMENTENehemias Suicide Coordinator [phone], Ext. [phone]; Back-up Ext. [phone] MD Police, BETH, Sangeeta [phone] Introduction: Visit is being conducted by MD [employer] Connect. [facility] identified with 2 identifiers: [X] Full Name [X] Date of [ ] VA ID Card Emergency Plan: [facility] confirmed and/or provided the following information in case of emergency or technology failure. PATIENT PHONE - PHONE NUMBER [CELLULAR] - Is patient phone number correct, if not, enter below: [facility]'s phone number: TAJ DE LA ROSA [address], [place], [address] [place]'s present location and address for appointment: his home 's emergency contact name and phone number: E-Cont.: ESTRELLAJUVENCIO Relation Type: UNRELATED FRIEND/OTHER Relation Note: OTHERS [address] [place] [address] [facility] reported that location is private and safe: Yes Informed Consent: informed of the risks and benefits of Telehealth video care. [facility] has the right to refuse video services. If refuses video visit, a xnaz-gp-saho visit will be scheduled. [facility] verbalized consent for this video visit: Yes [facility] provided consent for any other persons present for visit: Yes If yes, who and relationship to patient:group Secure visit: Visit was locked for security and privacy:Yes /nicole/ REBECA CARABALLO Media Services Director Signed: 11/13/2023 10:26 MARIALUISA SALCEDO [facility]
--- OUTSIDE RECORDS SUMMARY | 2024-06-01 10:56 | XMS_ITS ---
Author Name Department of [facility] Organization [facility] of [place] Address [address] [place] [address] Care Team Providers Care Calibration Laboratory Technician Name Role Phone JOSE MANUEL PITT [...] SUPPL EMENT A Feb 18, 2022 SUPP1 [id number] GINA DE LA ROSA PATIENT [facility] [place] PREFER/SEN IOR CARE MEDICARE SUPPLEMEN BETY MEDIC ARE SUPPL EMENT A Feb 18, 2021 SUPP1 [id number] GINA DE LA ROSA PATIENT Selected Encounter This section includes the information on record at [place] for the Encounter. Date/Time Encounter Type Encounter Description Reason Provider Source Mar 30, 2024 01:00 PM OFFICE O/P EST MOD 30 MIN [facility] - IND ICD-10-CM F34.9 Persistent mood [affective] disorder, unspecified [facility] Encounter Template Text not used by [place] Assessments - Encounter Diagnoses This section includes the primary and secondary diagnoses documented for the Encounter. Date/Time Primary/Secondary Diagnosis Diagnosis Name Provider Source Mar 30, 2024 05:57 PM PRIMARY Persistent mood [affective] disorder, unspecified LACHELLE STANFORDGUY Williamson Rocio [facility] [place] [facility] Mar 30, 2024 05:57 PM SECONDARY Post-traumatic stress disorder, chronic IGNACIOCYNTHIAVIVIANGUY Chan [facility] [place] [facility] Mar 30, 2024 05:57 PM SECONDARY Unsp symptoms and signs w cognitive functions and awareness LACHELLE STANFORDGUY Williamson Rocio [place] [facility] [facility] Plan of Treatment: Future Appointments [...] - PSYCHIATRY [facility] [place] [facility] Apr 08, 2024 09:00 AM AMBULATORY - PSYCHIATRY [facility] [place] [facility] Apr 13, 2024 07:00 AM AMBULATORY - PSYCHIATRY [facility] [place] [facility] Apr 15, 2024 09:00 AM AMBULATORY - PSYCHIATRY [facility] [place] [facility] Apr 20, 2024 09:00 AM AMBULATORY - NEUROLOGY [facility] [place] [facility] Apr 22, 2024 09:00 AM AMBULATORY - PSYCHIATRY [facility] [place] [facility] Apr 29, 2024 09:00 AM AMBULATORY - PSYCHIATRY [facility] [place] [facility] May 04, 2024 07:00 AM AMBULATORY - PSYCHIATRY [facility] [place] [facility] May 04, 2024 10:15 AM AMBULATORY - MEDICINE [facility] [place] [facility] May 06, 2024 09:00 AM AMBULATORY - PSYCHIATRY [facility] [place] [facility] May 14, 2024 09:30 AM AMBULATORY - MEDICINE [facility] May 20, 2024 09:00 AM AMBULATORY - PSYCHIATRY [facility] [place] [facility] May 21, 2024 02:00 PM AMBULATORY - MEDICINE [facility] [place] [facility] May 25, 2024 07:00 AM AMBULATORY - PSYCHIATRY [facility] [place] [facility] Jun 01, 2024 01:00 PM AMBULATORY - PSYCHIATRY [facility] [place] [facility] Jun 03, 2024 09:00 AM AMBULATORY - PSYCHIATRY [facility] [place] [facility] Jun 09, 2024 07:00 AM AMBULATORY - PSYCHIATRY [facility] [place] [facility] Jun 10, 2024 09:00 AM AMBULATORY - PSYCHIATRY [facility] [place] [facility] June 22, 2024 07:00 AM AMBULATORY - PSYCHIATRY [place] [facility] [place] [facility] July 06, 2024 07:00 AM AMBULATORY - PSYCHIATRY [place] [facility] [place] [facility] Active, Pending, and Scheduled Orders This section includes a listing of several types of active, pending, and scheduled orders, including clinic medications orders, diagnostic test orders, procedure orders and consult orders; where the start date of the order is 45 days before the date of the Encounter or 45 days after the date of theEncounter. The data comes from all [place] treatment facilities. Test Date/Time Test Type Test Details Facility Name Apr 27, 2024 12:00 AM Laboratory - Chemi stry Order OCCULT BLOOD FIT X1 SCREEN (MFP ONLY) STOOL FECES SP [facility] Social History: Smoking Status (Most current) and [...] 07:00 AM VA-TOBACCO USE FOR TYRONE CIGARETTES [facility] Tobacco Use History This section includes a history of the smoking, or tobacco-related health factors, that were collected on or before the date of the Encounter. The data comes from the [place] facility where the Encounter took place. Date/Time Smoking Status/Tobacco Use Comment F acility Mar 30, 2024 07:00 AM VA-TOBACCO USE FOR TYRONE OTHER TYPE [facility] [place] [facility] Apr 15, 2023 07:00 AM VA-TOBACCO FORMER USER [facility] [place] [facility] Apr 15, 2023 07:00 AM VA-TOBACCO QUIT 15 YRS OR MORE [facility] [place] [facility] Apr 24, 2022 07:00 AM VA-TOBACCO FORMER USER [facility] [place] [facility] Apr 24, 2022 07:00 AM VA-TOBACCO QUIT 15 YRS OR MORE [facility] [place] [facility] Apr 27, 2021 03:00 PM VA-TOBACCO FORMER USER [facility] [place] [facility] Apr 27, 2021 03:00 PM VA-TOBACCO QUIT 15 YRS OR MORE [facility] [place] [facility] Mar 17, 2020 03:00 PM VA-TOBACCO FORMER USER [facility] [place] [facility] Mar 17, 2020 03:00 PM VA-TOBACCO QUIT 15 YRS OR MORE [facility] [place] [facility] Mar 31, 2019 09:04 AM VA-TOBACCO FORMER USER [facility] [place] [facility] Mar 31, 2019 09:04 AM VA-TOBACCO QUIT 15 YRS OR MORE [facility] [place] [facility] Encounter Notes: All associated encounter [...] standard clinical care, and in accordance with [facility] policy. Patient information was shared with the [facility] Appriss Descanso. No prescription(s) for controlled substances outside the VA were found in the last 90 days. /nicole/ SALLY STANFORD PSYCHIATRIST Signed: 03/30/2024 13:29 SALLY STANFORD [place] [facility] [facility] Mar 30, 2024 01:12 PM [...] suicide attempt in 2005 and hospitalization at [facility] (overdose on morphine), also with an [...] dose of trazodone, but continued to have early childhood worker awakening which resolved with addition of clonidine [...] this VA (local) and dispensed from another [place] or [...] Signed: 03/30/2024 17:57 [facility]
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
--- OUTSIDE RECORDS SUMMARY | 2024-06-01 10:56 | XMS_ITS | Encounter Summary ---
Author Name [facility] [place] Address [address] [place] [address] Care Team Providers Care Grading Supervisor Name Role Phone JOSE MANUEL PITT [...] SUPPL EMENT A Feb 18, 2022 SUPP1 [id number] GINA DE LA ROSA PATIENT [facility] MED PREFER/SEN IOR CARE MEDICARE SUPPLEMEN BETY MEDIC ARE SUPPL EMENT A Feb 18, 2021 SUPP1 [id number] [phone] GINA DE LA ROSA PATIENT Selected Encounter This section includes the information on record at [place] for the Encounter. Date/Time Encounter Type Encounter Description Reason Provider Source May 20, 2024 09:00 AM GROUP PSYCHOTHERAPY [facility] ICD-10-CM F43.12 Post-traumati c stress disorder, chronic MARIALUISA SALCEDO Encounter Template Text not used by [place] Assessments - Encounter Diagnoses This section includes the primary and secondary diagnoses documented for the Encounter. Date/Time Primary/Secondary Diagnosis Diagnosis Name Provider Source May 20, 2024 10:38 AM PRIMARY Post-traumatic stress disorder, chronic MARIALUISA SALCEDO [facility] Plan of Treatment: Future Appointments (+ 6 months) and Future Tests (+/- 45 days) The Plan of Treatment section includes future care activities for the patient from all [place] [facility]. This section includes future appointments and future orders which are active, pending or scheduled. Future Appointments This section includes appointments that were scheduled to occur 6 months from the date of the Encounter, up to a maximum of 20 appointments. The data comes from all [place] treatment facilities. Appointment Date/Time Appointment Type Appointme nt Facility Name May 21, 2024 02:00 PM AMBULATORY - MEDICINE [place] [facility] [place] [facility] May 25, 2024 07:00 AM AMBULATORY - PSYCHIATRY [place] [facility] [place] [facility] Jun 01, 2024 01:00 PM AMBULATORY - PSYCHIATRY [place] [facility] [place] [facility] Jun 03, 2024 09:00 AM AMBULATORY - PSYCHIATRY [place] [facility] [place] [facility] Jun 09, 2024 07:00 AM AMBULATORY - PSYCHIATRY [place] [facility] [place] [facility] Jun 10, 2024 09:00 AM AMBULATORY - PSYCHIATRY [place] [facility] [place] [facility] June 22, 2024 07:00 AM AMBULATORY - PSYCHIATRY [place] [facility] [place] [facility] July 06, 2024 07:00 AM AMBULATORY - PSYCHIATRY [place] [facility] [place] [facility] Jul 20, 2024 09:00 AM AMBULATORY - NEUROLOGY [place] [facility] [place] [facility] Aug 03, 2024 08:30 AM AMBULATORY - MEDICINE [place] [facility] [place] [facility] Sep 17, 2024 09:30 AM AMBULATORY - MEDICINE [facility] Active, Pending, and Scheduled Orders This section includes a listing of several types of active, pending, and scheduled orders, including clinic medications orders, diagnostic test orders, procedure orders and consult orders; where the start date of the order is 45 days before the date of the Encounter or 45 days after the date of theEncounter. The data comes from all [place] treatment [facility]. Test Date/Time Test Type Test Details Facility Name Apr 27, 2024 12:00 AM Laboratory - Chemi stry Order OCCULT BLOOD FIT X1 SCREEN (MFP ONLY) STOOL FECES SP [place] [facility] [place] [facility] Social History: Smoking Status [...] AM VA-TOBACCO USE FOR TYRONE OTHER TYPE [place] [facility] [place] [facility] Tobacco Use History This section includes a history of the smoking, or tobacco-related health factors, that were collected on or before the date of the Encounter. The data comes from the [place] facility where the Encounter took place. Date/Time Smoking Status/Tobacco Use Comment F acility Mar 30, 2024 07:00 AM VA-TOBACCO USE FOR TYRONE OTHER TYPE [facility] [place] [facility] Apr 15, 2023 07:00 AM VA-TOBACCO FORMER USER [facility] [place] [facility] Apr 15, 2023 07:00 AM VA-TOBACCO QUIT 15 YRS OR MORE [facility] [place] [facility] Apr 24, 2022 07:00 AM VA-TOBACCO FORMER USER [facility] [place] [facility] Apr 24, [...] YRS OR MORE [facility] [place] [facility] Encounter Notes: All associated encounter notes This section contains the clinical notes associated to the Encounter. Date/Time Encounter Note(s) Provider Source May 20, 2024 10:28 AM SOCIAL WORK GROUP COUNSELING NOTE: LOCAL TITLE: SOCIAL WORK GROUP NOTE STANDARD TITLE: SOCIAL WORK GROUP COUNSELING NOTE DATE OF NOTE: MAY 20, 2024@10:28 ENTRY DATE: MAY 20, 2024@10:28:52 AUTHOR: MARIALUISA SALCEDO EXP COSIGNER: URGENCY: STATUS: COMPLETED i[employer] Group Date: 05/20/24 Time: 9 AM Number of group members: 14 Inner Tube Cutter: Marialuisa Salcedo, PEWTER FABRICATOR Group began with a introduction that iRest [...] emotions and thoughts. Today's theme was on emotions. Harbinger engaged with it help desk technician and group members appropriately, participating in the meditation and reflection time. Harbinger did not endorse SI/HI. 's intention is to be aware of feelings and develop a sense of calm. DIAGNOSES: Persistent mood disorder, unspecified PTSD, chronic Cognitive Disorder (History of) Cerebral Infarction, Unspecified [place] [employer] (VV) Standard Documentation VVC Clinician Resources Only: E911 (Emergency Call Relay Center): [phone] National Veterans Crisis Line - 988 then press #1. BETH Suicide Coordinator [phone], Ext. [phone]; Back-up Ext. [phone] [place] Police, Sangeeta CAMPOS [phone] Introduction: Visit is being conducted by [employer]. Harbinger identified with 2 identifiers: [X] Full Name [X] Date of [ ] VA ID Card Emergency Plan: confirmed and/or provided the following information in case of emergency or technology failure. PATIENT PHONE - PHONE NUMBER [CELLULAR] - Is patient phone number correct, if not, enter below: 's phone number: TAJ DE LA ROSA [address], [place], [address] Harbinger's present location and address for appointment: his home 's emergency contact name and phone number: E-Cont.: JUVENCIO DE LA ROSA Relation Type: UNRELATED FRIEND/OTHER Relation Note: OTHERS [address] [place] [address] [facility] Harbinger reported that location is private and safe: Yes Informed Consent: Harbinger informed of the risks and benefits of Telehealth video care. has the right to refuse video services. If refuses video visit, a nlsr-pr-hdtl visit will be scheduled. Harbinger verbalized consent for this video visit: Yes provided consent for any other persons present for visit: Yes If yes, who and relationship to patient:group Secure visit: Visit was locked for security and privacy:Yes /nicole/ REBECA CARABALLO Skin Piler Signed: 05/20/2024 10:39 [facility]ISA SALCED[facility]
--- OUTSIDE RECORDS SUMMARY | 2024-06-01 10:56 | XMS_ITS | Encounter Summary ---
Author Organization [facility], Address [address] [place] [address] Phone Care Team Providers Care Van Helper Name Role Phone Luis F Lozada DO Primary Care Provide r Encounter Details Date Type Department Care Team (Late st Contact Info) Description 08/02/2021 Documentation Only [facility] [address] [place] [address] Camilo Terrell MD [address] [place] [address] [place] [address] Social History Tobacco Use Types [...] Visit [facility] [address] [place] [address] Camilo Terrell MD [address] [place] [address] documented as of this encounter Visit Diagnoses Not on filedocumented in this encounter Care Teams Van Helper Relationship Specialty Start Date End Date Luis F Lozada DO [address] [facility] [address] [place] [address] PCP - General Internal Medicine 02/03/21 documented as of this encounter
--- OUTSIDE RECORDS SUMMARY | 2024-06-01 10:56 | XMS_ITS ---
Author Name [facility] [place] Address [address] [place] [address] Care Team Providers Care Office Messenger Name Role Phone JOSE MANUEL PITT [...] Burgess's Name Patient's Relationship to Policy Burgess [facility] PLAN MEDICARE SUPPLEMEN BETY MEDIC ARE SUPPL EMENT A Feb 18, 2022 SUPP1 [id number] GINA DE LA ROSA PATIENT [facility] MED PREFER/SEN IOR CARE MEDICARE SUPPLEMEN BETY MEDIC ARE SUPPL EMENT A Feb 18, 2021 SUPP1 [id number] [phone] GINA DE LA ROSA PATIENT Selected Encounter This section includes the information on record at [place] for the Encounter. Date/Time Encounter Type Encounter Description Reason Provider Source Mar 04, 2024 09:00 AM STRESS MGMT CLASS [facility] ICD-10-CM F43.12 Post-traumatic stress disorder, chronic MARIALUISA SALCEDO Encounter Template Text not used by [place] Assessments - Encounter Diagnoses This section includes the primary and secondary diagnoses documented for the Encounter. Date/Time Primary/Secondary Diagnosis Diagnosis Name Provider Source Mar 04, 2024 10:25 AM PRIMARY Post-traumatic stress disorder, chronic MARIALUISA SALCEDO [place] [facility] [place] [facility] Plan of Treatment: Future Appointments (+ 6 months) and Future Tests (+/- 45 days) The Plan of Treatment section includes future care activities for the patient from all [place] treatmentfacilities. This section includes future appointments and future orders which are active, pending or scheduled. Future Appointments This section includes appointments that were scheduled to occur 6 months from the date of the Encounter, up to a maximum of 20 appointments. The data comes from all [place] treatment facilities. Appointment Date/Time Appointment Type Appointme nt Facility Name Mar 11, 2024 09:00 AM AMBULATORY - PSYCHIATRY [facility] [place] [facility] Mar 18, 2024 09:00 AM AMBULATORY - PSYCHIATRY [facility] [place] [facility] Mar 25, 2024 09:00 AM AMBULATORY - PSYCHIATRY [facility] [place] [facility] Mar 30, 2024 07:00 AM AMBULATORY - PSYCHIATRY [facility] [place] [facility] Mar 30, 2024 01:00 PM AMBULATORY - PSYCHIATRY [facility] [place] [facility] Apr 01, 2024 09:00 AM AMBULATORY - PSYCHIATRY [facility] [place] [facility] Apr 08, 2024 09:00 AM AMBULATORY - PSYCHIATRY [facility] [place] [facility] Apr 13, 2024 07:00 AM AMBULATORY - PSYCHIATRY [facility] [place] [facility] Apr 15, 2024 09:00 AM AMBULATORY - PSYCHIATRY [facility] [place] [facility] Apr 20, 2024 09:00 AM AMBULATORY - NEUROLOGY [facility] [place] [facility] Apr 22, 2024 09:00 AM AMBULATORY - PSYCHIATRY [facility] [place] [facility] Apr 29, 2024 09:00 AM AMBULATORY - PSYCHIATRY [facility] [place] [facility] May 04, 2024 07:00 AM AMBULATORY - PSYCHIATRY [facility] [place] [facility] May 04, 2024 10:15 AM AMBULATORY - MEDICINE [facility] [place] [facility] May 06, 2024 09:00 AM AMBULATORY - PSYCHIATRY [facility] [place] [facility] May 14, 2024 09:30 AM AMBULATORY - MEDICINE [facility] [place] May 20, 2024 09:00 AM AMBULATORY - PSYCHIATRY [facility] [place] [facility] May 21, 2024 02:00 PM AMBULATORY - MEDICINE [facility] [facility] May 25, 2024 07:00 AM AMBULATORY - PSYCHIATRY [facility] [place] [facility] Jun 01, 2024 01:00 PM AMBULATORY - PSYCHIATRY [facility] [place] [facility] Social History: Smoking Status (Most current) and Tobacco Use (All prior to encounter date) This section includes the most current, and the historical, smoking and tobacco- related health factors from the [place] facility where the Encounter took place. Current Smoking Status This section includes the most current smoking, or tobacco-related health factor, from the [place] facility where the Encounter took place. Date/Time Current Smoking Status Comment Facil ity Apr 15, 2023 07:00 AM VA-TOBACCO FORMER USER [place] [facility] [place] [facility] Tobacco Use History This section includes a history of the smoking, or tobacco-related health factors, that were collected on or before the date of the Encounter. The data comes from the [place] facility where the Encounter took place. Date/Time Smoking Status/Tobacco Use Comment F acility Apr 15, 2023 07:00 AM VA-TOBACCO QUIT 15 YRS OR MORE [facility] [place] [facility] Apr 24, 2022 07:00 AM VA-TOBACCO FORMER USER [facility] [place] [facility] Apr 24, 2022 07:00 AM VA-TOBACCO QUIT 15 YRS OR MORE [facility] [place] [facility] Apr 27, 2021 03:00 PM VA-TOBACCO FORMER USER [facility] [place] [facility] Apr 27, 2021 03:00 PM VA-TOBACCO QUIT 15 YRS OR MORE [facility] [place] [facility] Mar 17, 2020 03:00 PM VA-TOBACCO FORMER USER [facility] [place] [facility] Mar 17, 2020 03:00 PM VA-TOBACCO QUIT 15 YRS OR MORE [facility] [place] [facility] Mar 31, 2019 09:04 AM VA-TOBACCO FORMER USER [place] [facility] [facility] Mar 31, 2019 09:04 AM VA-TOBACCO QUIT 15 YRS OR MORE [place] CNTR [place] [facility] Encounter Notes: All associated encounter notes [...] 9 AM Number of group members: 16 Buncher Hand: Marialuisa Salcedo [facility] Group began with a introduction [...] theme was on inner resource. engaged with cattle farmer and group members appropriately, participating in the meditation and reflection time. [place]on did not endorse SI/HI. 's intention was to increase calm, reduce anxiety, and improve sleep. DIAGNOSES: Persistent mood disorder, unspecified PTSD, chronic Cognitive Disorder (History of) Cerebral Infarction, Unspecified [place] [employer] (VVC) Standard Documentation VV Clinician Resources Only: E911 (Emergency Call Relay Center): [phone] National Veterans Crisis Line - 988 then press #1. BETH Suicide Coordinator [phone], Ext. [phone]; Back-up Ext. [phone] BETH Avendaño [place] [phone] Introduction: Visit is being conducted by [employer]. Delbarton identified with 2 identifiers: [X] Full Name [X] Date of [ ] VA ID Card Emergency Plan: confirmed and/or provided the following information in case of emergency or technology failure. PATIENT PHONE - PHONE NUMBER [CELLULAR] - Is patient phone number correct, if not, enter below: 's phone number: TAJ DE LA ROSA [address], [place], [address] 's present location and address for appointment: his home 's emergency contact name and phone number: E-Cont.: ESTRELLAJUVENCIO Relation Type: UNRELATED FRIEND/OTHER Relation Note: OTHERS [address] [place] [address] [facility] Delbarton reported that location is private and safe: Yes Informed Consent: informed of the risks and benefits of Telehealth video care. has the right to refuse video services. If refuses video visit, a [id number] visit will be scheduled. Delbarton verbalized consent for this video visit: Yes Del[place]on provided consent for any other persons present for visit: Yes If yes, who and relationship to patient:group Secure visit: Visit was locked for security and privacy:Yes /nicole/ REBECA CARABALLO Outside Cutter Signed: 03/04/2024 10:26 MARIALUISA SALCEDO [facility]
--- OUTSIDE RECORDS SUMMARY | 2024-06-01 10:56 | XMS_ITS | Encounter Summary ---
Author Name [facility] [place] Address [address] [place] [address] Care Team Providers Care Clinical Asst Name Role Phone JOSE MANUEL PITT Primary [...] Burgess's Name Patient's Relationship to Policy Burgess [facility] SUPPLEMEN BETY MEDIC ARE SUPPL EMENT A Feb 18, 2022 SUPP1 [id number] GINA DE LA ROSA PATIENT [facility]ER/SEN IOR CARE MEDICARE SUPPLEMEN BETY MEDIC ARE SUPPL EMENT A Feb 18, 2021 SUPP1 [id number] [phone] GINA DE LA ROSA PATIENT Selected [...] hip DANYA WELCH [facility] [place] [facility] Plan of Treatment: Future Appointments (+ [...] AMBULATORY - PSYCHIATRY [facility] [place] [facility] Jul 22, 2023 07:00 AM AMBULATORY - PSYCHIATRY [facility] [place] [facility] Jul 22, 2023 08:00 AM AMBULATORY - NEUROLOGY [facility] [place] [facility] Jul 25, 2023 01:30 PM AMBULATORY - PSYCHIATRY [facility] [place] [facility] Jul 29, 2023 07:00 AM AMBULATORY - PSYCHIATRY [facility] [place] [facility] Jul 29, 2023 08:30 AM AMBULATORY - MEDICINE [facility] [place] [facility] Aug 21, 2023 10:00 AM AMBULATORY - MEDICINE [facility] Sep 02, 2023 07:00 AM AMBULATORY - PSYCHIATRY [facility] [place] [facility] Sep 09, 2023 05:00 PM AMBULATORY - PSYCHIATRY [facility] [place] [facility] Sep 11, 2023 09:00 AM AMBULATORY - PSYCHIATRY [facility] [place] [facility] Sep 19, 2023 01:30 PM AMBULATORY - PSYCHIATRY [facility] [place] [facility] Sep 25, 2023 09:00 AM AMBULATORY - PSYCHIATRY [facility] [place] [facility] Sep 30, 2023 07:00 AM AMBULATORY - PSYCHIATRY [facility] [place] [facility] Oct 02, 2023 09:00 AM AMBULATORY - PSYCHIATRY [facility] [place] [facility] Oct 09, 2023 09:00 AM AMBULATORY - PSYCHIATRY [facility] [place] [facility] Oct 16, 2023 09:00 AM AMBULATORY - PSYCHIATRY [facility] [place] [facility] Oct 23, 2023 09:00 AM AMBULATORY - PSYCHIATRY [facility] [place] [facility] Oct 28, 2023 07:00 AM AMBULATORY - PSYCHIATRY [facility] [place] [facility] Oct 28, 2023 08:00 AM AMBULATORY - NEUROLOGY [facility] [place] [facility] Oct 28, 2023 09:30 AM AMBULATORY - PSYCHIATRY [facility] [place] [facility] Social History: Smoking Status (Most current) and Tobacco Use (All prior to encounter date) This section includes the most current, and the historical, smoking and tobacco- related health factors from the [place] facility where the Encounter took place. Current Smoking Status This section includes the most current smoking, or tobacco-related health factor, from the [place] facility where the Encounter took place. Date/Time Current Smoking Status Comment Facil ity Apr 15, 2023 07:00 AM VA-TOBACCO FORMER USER [place] [facility] [place] [facility] Tobacco Use History This section includes a history of the smoking, or tobacco-related health factors, that were collected on or before the date of the Encounter. The data comes from the [place] facility where the Encounter took place. Date/Time Smoking Status/Tobacco Use Comment F acility Apr 15, 2023 07:00 AM VA-TOBACCO QUIT 15 YRS OR MORE [facility] [place] [facility] Apr 24, 2022 07:00 AM VA-TOBACCO FORMER USER [facility] [place] [facility] Apr 24, 2022 07:00 AM VA-TOBACCO QUIT 15 YRS OR MORE [facility] [place] [facility] Apr 27, 2021 03:00 PM VA-TOBACCO FORMER USER [facility] [place] [facility] Apr 27, 2021 03:00 PM VA-TOBACCO QUIT 15 YRS OR MORE [facility] [place] [facility] Mar 17, 2020 03:00 PM VA-TOBACCO FORMER USER [facility] [place] [facility] Mar 17, 2020 03:00 PM VA-TOBACCO QUIT 15 YRS OR MORE [facility] [place] [facility] Mar 31, 2019 09:04 AM VA-TOBACCO FORMER USER [facility] [place] [facility] Mar 31, 2019 09:04 AM VA-TOBACCO QUIT 15 YRS OR MORE [facility] [place] [facility] Encounter Notes: All associated encounter notes [...] of AFO. [facility] [address] [address] The left hip has been overall pretty [...] fatigue [facility] [address] [address] placed consult for replacement. SELF CARE/EDUCATION: MINUTES: HEP:Access Code: [email or web address] URL: [email or web address] / Date: 03/25/2023 Prepared by: Danya Welch [...] patient relayed he had an appt at [facility] where they noted the right AFO had broken, htey did a temp patch repair but suggested a replacement. [place] noted he can feel the patch on [...]
--- OUTSIDE RECORDS SUMMARY | 2024-06-01 10:56 | XMS_ITS ---
Author Name [facility] [place] Address [address] [place] [address] Care Team Providers Care Band Head Saw Operator Name Role Phone JOSE MANUEL PITT [...] SUPPL EMENT A Feb 18, 2022 SUPP1 [id number] GINA DE LA ROSA PATIENT [facility] MED PREFER/SEN IOR CARE MEDICARE SUPPLEMEN BETY MEDIC ARE SUPPL EMENT A Feb 18, 2021 SUPP1 [id number] GINA DE LA ROSA PATIENT Selected Encounter This section includes the information on record at [place] for the Encounter. Date/Time Encounter Type Encounter Description Reason Provider Source July 08, 2023 07:00 AM PSYTX W PT 45 MINUTES [facility] - [facility] ICD-10-CM F43.12 Post-traumatic stress disorder, chronic MOISES PADILLA Encounter Template Text not used by [place] Assessments - Encounter Diagnoses This section includes the primary and secondary diagnoses documented for the Encounter. Date/Time Primary/Secondary Diagnosis Diagnosis Name Provider Source July 08, 2023 07:55 AM PRIMARY Post-traumatic stress disorder, chronic MOISES PADILLA [facility] [place] [facility] July 08, 2023 07:55 AM SECONDARY Cerebral infarction, unspecified MOISES PADILLA [facility] [place] [facility] July 08, 2023 07:55 AM SECONDARY Persistent mood [affective] disorder, unspecified MOISES PADILLA [facility] [place] [facility] July 08, 2023 07:55 AM SECONDARY Unsp symptoms and signs w cognitive functions and awareness [facility] [place] [facility] Plan of Treatment: Future Appointments (+ 6 months) and Future Tests (+/- 45 days) The Plan of Treatment section includes future care activities for the patient from all [place] treatmentfacilities. This section includes future appointments and future orders which are active, pending or scheduled. Future Appointments This section includes appointments that were scheduled to occur 6 months from the date of the Encounter, up to a maximum of 20 appointments. The data comes from all [place] treatment facilities. Appointment Date/Time Appointment Type Appointme nt Facility Name Jul 22, 2023 07:00 AM AMBULATORY - PSYCHIATRY [facility] [place] [facility] Jul 22, 2023 08:00 AM AMBULATORY - NEUROLOGY [place] [facility] [place] [facility] Jul 25, 2023 01:30 PM AMBULATORY - PSYCHIATRY [facility] [place] [facility] Jul 29, 2023 07:00 AM AMBULATORY - PSYCHIATRY [facility] [place] [facility] Jul 29, 2023 08:30 AM AMBULATORY - MEDICINE [facility] [place] [facility] Aug 21, 2023 10:00 AM AMBULATORY - MEDICINE [facility] Sep 02, 2023 07:00 AM AMBULATORY - PSYCHIATRY [facility] [place] [facility] Sep 09, 2023 05:00 PM AMBULATORY - PSYCHIATRY [facility] [place] [facility] Sep 11, 2023 09:00 AM AMBULATORY - PSYCHIATRY [facility] [place] [facility] Sep 19, 2023 01:30 PM AMBULATORY - PSYCHIATRY [facility] [place] [facility] Sep 25, 2023 09:00 AM AMBULATORY - PSYCHIATRY [facility] [place] [facility] Sep 30, 2023 07:00 AM AMBULATORY - PSYCHIATRY [facility] [place] [facility] Oct 02, 2023 09:00 AM AMBULATORY - PSYCHIATRY [facility] [place] [facility] Oct 09, 2023 09:00 AM AMBULATORY - PSYCHIATRY [facility] [place] [facility] Oct 16, 2023 09:00 AM AMBULATORY - PSYCHIATRY [facility] [place] [facility] Oct 23, 2023 09:00 AM AMBULATORY - [...] [facility] Social History: Smoking Status (Most current) and Tobacco Use (All prior to encounter date) This section includes the most current, and the historical, smoking and tobacco- related health factors from the [place] facility where the Encounter took place. Current Smoking Status This section includes the most current smoking, or tobacco-related health factor, from the [place] facility where the Encounter took place. Date/Time Current Smoking Status Comment Nurys ity Apr 15, 2023 07:00 AM [facility] [place] [facility] Tobacco Use History This section includes a history of the smoking, or tobacco-related health factors, that were collected on or before the date of the Encounter. The data comes from the [place] facility where the Encounter took place. Date/Time Smoking Status/Tobacco Use Comment F acility Apr 15, 2023 07:00 AM VA-TOBACCO QUIT 15 YRS OR MORE [facility] [place] [facility] Apr 24, 2022 07:00 AM VA-TOBACCO FORMER USER [facility] [place] [facility] Apr 24, 2022 07:00 AM VA-TOBACCO QUIT 15 YRS OR MORE [facility] [place] [facility] Apr 27, 2021 03:00 PM VA-TOBACCO FORMER USER [facility] [place] [facility] Apr 27, 2021 03:00 PM VA-TOBACCO QUIT 15 YRS OR MORE [place] [facility] [place] [facility] Mar 17, 2020 03:00 PM VA-TOBACCO FORMER USER [place] [facility] [place] [facility] Mar 17, 2020 03:00 PM VA-TOBACCO QUIT 15 YRS OR MORE [facility] [place] [facility] Mar 31, 2019 09:04 AM VA-TOBACCO FORMER USER [place] [facility] [place] [facility] Mar 31, 2019 09:04 AM VA-TOBACCO QUIT 15 YRS OR MORE [facility] [place] [facility] [...] (History of) Cerebral Infarction, Unspecified PRESENTING PROBLEMS: Bureau presented on time and re-engaged in treatment [...] tries to mediate and support Carlyn. Additionally, Bureau's anger/defensiveness seems to have been triggered based on hearing that his brother said I'm concerned about [Broderick's] declining health. Bureau initially described irritation that his brother never [...] Staff Psychologist Signed: 07/08/2023 08:00 MOISES PADILLA [facility]
--- OUTSIDE RECORDS SUMMARY | 2024-06-01 10:56 | XMS_ITS | Encounter Summary ---
Author Name [facility] [place] Address [address] [place] [address] Care Team Providers Care Order Dispatcher Name Role Phone JOSE MANUEL PITT Primary [...] SUPPL EMENT A Feb 18, 2022 SUPP1 [id number] GINA DE LA ROSA PATIENT [facility] MED PREFER/SEN IOR CARE MEDICARE SUPPLEMEN BETY MEDIC ARE SUPPL EMENT A Feb 18, 2021 SUPP1 [id number] GINA DE LA ROSA PATIENT Selected [...] chronic MOISES PADILLA [facility] [place] [facility] Nov 19, 2023 07:57 AM SECONDARY Cerebral infarction, unspecified MOISES PADILLA [facility] [place] [facility] Nov 19, 2023 07:57 AM SECONDARY Persistent mood [affective] disorder, unspecified MOISES PADILLA [facility] [place] [facility] Nov 19, 2023 07:57 AM SECONDARY Unsp symptoms and signs w cognitive functions and awareness MOISES PADILLA [facility] [place] [facility] Plan of Treatment: Future Appointments (+ 6 months) and Future Tests (+/- 45 days) The Plan of Treatment section includes [facility] care [facility] [place] [facility] This section includes future appointments and future [...] 20, 2023 09:00 AM AMBULATORY - PSYCHIATRY [facility] [place] [facility] Nov 27, 2023 09:00 AM AMBULATORY - PSYCHIATRY [facility] [place] [facility] Dec 04, 2023 09:00 AM AMBULATORY - PSYCHIATRY [facility] [place] [facility] Dec 11, 2023 09:00 AM AMBULATORY - PSYCHIATRY [facility] [place] [facility] Dec 16, 2023 09:30 AM AMBULATORY - PSYCHIATRY [facility] [place] [facility] Dec 18, 2023 09:00 AM AMBULATORY - PSYCHIATRY [facility] [place] [facility] Dec 19, 2023 07:30 AM AMBULATORY - MEDICINE [facility] [place] [facility] Dec 23, 2023 07:00 AM AMBULATORY - PSYCHIATRY [facility] [place] [facility] Dec 25, 2023 09:00 AM AMBULATORY - PSYCHIATRY [facility] [place] [facility] Jan 01, 2024 09:00 AM AMBULATORY - PSYCHIATRY [facility] [place] [facility] Jan 08, 2024 09:00 AM AMBULATORY - PSYCHIATRY [facility] [place] [facility] Jan 09, 2024 09:30 AM AMBULATORY - MEDICINE [facility] Jan 14, 2024 07:00 AM AMBULATORY - PSYCHIATRY [facility] [place] [facility] Jan 20, 2024 08:30 AM AMBULATORY - NEUROLOGY [facility] [place] [facility] Jan 22, 2024 09:00 AM AMBULATORY - PSYCHIATRY [facility] [place] [facility] Jan 27, 2024 01:30 PM AMBULATORY - PSYCHIATRY [facility] [place] [facility] Jan 29, 2024 09:00 AM AMBULATORY - PSYCHIATRY [facility] [place] [facility] Feb 05, 2024 09:00 AM AMBULATORY - PSYCHIATRY [facility] [place] [facility] Feb 10, 2024 07:00 AM AMBULATORY - PSYCHIATRY [facility] [place] [facility] Feb 24, 2024 07:00 AM [facility] [place] [facility] Active, Pending, and Scheduled Orders This section [...] 02:36 PM Consult Order COMMUNITY CARE-UROLOGY Cons Medical Billing Coder's Choice [facility] [place] [facility] Oct 28, 2023 01:47 PM Consult Order COMMUNITY CARE-NEUROLOGY Cons Medical Billing Coder's Choice [facility] Lab Results: +/- 30 days of the [...] Type Comment Dec 19, 2023 07:55 AM [facility] FOLATE (WROX) SERUM Specimen Type: SERUM No comment entered. Ordering Provider: SALLY PIERRE Report Released Date/Time: Oct 28, 2023 09:59 AM Reporting Lab: [facility] [address] [facility] [address] Performing Lab: [facility] [address] [facility] [facility] [address] FOLATE (WROX) 9.07 ng/mL >5.2 Dec 19, 2023 07:55 AM [facility] TSH SERUM Specimen Type: SERUM No comment entered. Ordering Provider: SALLY PIERRE Report Released Date/Time: Oct 28, 2023 09:59 AM Reporting Lab: [address] [address] Performing Lab: [facility] [address] [address] TSH 1.09 u[IU]/mL 0.35-5.00 Dec 19, 2023 07:55 AM [facility] VITAMIN D (25-OH) SERUM Specimen Type: SERUM No comment entered. Ordering Provider: SALLY PIERRE Report Released Date/Time: Oct 28, 2023 09:59 AM Reporting Lab: [facility] [address] [address] Performing Lab: [address] [address] VITAMIN D (25-OH) 38 ng/mL 20-50 Dec 19, 2023 07:55 AM [facility] VITAMIN B12 SERUM Specimen Type: SERUM No comment entered. Ordering Provider: SALLY PIERRE Report Released Date/Time: Oct 28, 2023 09:59 AM Reporting Lab: [facility] [address] [address] Performing Lab: [address] [address] VITAMIN B12 297 pg/mL 200-900 Dec 19, 2023 07:55 AM [facility] LIPID PANEL FASTING SERUM Specimen Type: SERU M No comment entered. Ordering Provider: SALLY PIERRE Report Released Date/Time: Dec 16, 2023 09:50 AM Reporting Lab: [facility] [address] [facility] [address] Performing Lab: [facility] [address] [facility] [address] CHOLESTEROL 113 mg/dL TRIGLYCERIDE 85 mg/dL 0-150 LDL calculated 50 mg/dL 0-129 CHOL/HDL 2.5 HDL CHOLESTEROL 46 mg/dL 40-60 Dec 19, 2023 07:55 AM [facility] HEMOGLOBIN A1C PANEL BLOOD Specimen Type: [...] Dec 16, 2023 09:50 AM Reporting Lab: [facility] [address] [facility] [address] Performing Lab: [address] [address] HEMOGLOBIN A1C 5.5 4.0-5.6 Dec 19, 2023 07:55 AM [facility] BASIC METABOLIC PANEL (fasting) SERUM Specime n Type: SERUM No comment entered. Ordering Provider: SALLY PIERRE Report Released Date/Time: Dec 16, 2023 09:50 AM Reporting Lab: [facility] [address] [facility] [facility] [address] Performing Lab: [address] [address] UREA NITROGEN 18 mg/dL 7-25 GLUCOSE 117 [...] 15, 2023 07:00 AM VA-TOBACCO FORMER USER [place] [facility] [place] [facility] Tobacco Use History This section includes a history of the smoking, or tobacco-related health factors, that were collected on or before the date of the Encounter. The data comes from the [place] facility where the Encounter took place. Date/Time Smoking Status/Tobacco Use Comment F acshen Apr 15, 2023 07:00 AM VA-TOBACCO QUIT 15 YRS OR MORE [place] [facility] [place] [facility] Apr 24, 2022 07:00 AM VA-TOBACCO FORMER USER [facility] [place] [facility] Apr 24, 2022 07:00 AM VA-TOBACCO QUIT 15 YRS OR MORE [facility] [place] [facility] Apr 27, 2021 03:00 PM VA-TOBACCO FORMER USER [facility] [place] [facility] Apr 27, 2021 03:00 PM VA-TOBACCO QUIT 15 YRS OR MORE [facility] [place] [facility] Mar 17, 2020 03:00 PM VA-TOBACCO FORMER USER [facility] [place] [facility] Mar 17, 2020 03:00 PM VA-TOBACCO QUIT 15 YRS OR MORE [facility] [place] [facility] Mar 31, 2019 09:04 AM VA-TOBACCO FORMER USER [facility] [place] [facility] Mar 31, 2019 09:04 AM VA-TOBACCO QUIT 15 YRS OR MORE [facility] [place] [facility] Encounter Notes: All associated encounter notes This [...] Unspecified PRESENTING PROBLEMS: presented on time and resumed treatment as usual returning to discuss his recent trauma triggering event as well as discussing a plan to discharge this episode of care. SESSION FOCUS: [place] began by sharing that the newer medication (Armodafinil) is going fantastic . He shared that it is helping with his distraction problem, as well as his mood. Previously Norwich described being pulled in several different directions, being unable to complete tasks before getting distracted by another. Now, he shared a recent example of his ability to prioritize tasks, even though he was pulled to do another. He reportedly hopes to raise it up to 150 mg, which he said he discussed with his prescriber. [facility] is also reportedly helpful. shared more about his recent experience of [...] session was spent with this provider encouraging [place]wich to consider taking a break in treatment. He has one more session scheduled in a month and was encouraged to try this one as our final session, unless something changes between now and then. [place] was hesitant but willing to try it, [...] F2F ssns monthly. Suicide Screen: C-SSRS Screening [place]-Suicide Severity Rating Scale (C-SSRS Screener) 1. Over [...] Staff Psychologist Signed: 11/19/2023 07:57 MOISES PADILLA [facility]
--- OUTSIDE RECORDS SUMMARY | 2024-06-01 10:56 | XMS_ITS | Encounter Summary ---
Author Name [facility] [place] [facility] [place] Organization [facility] [place] Address [address] [place] [address] Care Team Providers Care Terrazzo Mechanic Helper Name Role Phone JOSE MANUEL PITT Primary [...] SUPPL EMENT A Feb 18, 2022 SUPP1 [id number] GINA DE LA ROSA PATIENT [facility] PREFER/SEN IOR CARE MEDICARE SUPPLEMEN BETY MEDIC ARE SUPPL EMENT A Feb 18, 2021 SUPP1 [id number] [phone] GINA DE LA ROSA PATIENT Selected Encounter This section includes the information on record at [place] for the Encounter. Date/Time Encounter Type Encounter Description Reason Provider Source Sep 19, 2023 01:30 PM OFFICE O/P EST MOD 30 MIN [facility] - IND ICD-10-CM F34.9 Persistent mood [affective] disorder, unspecified [facility] Encounter Template Text not used by [place] Assessments - Encounter Diagnoses This section includes the primary and secondary diagnoses documented for the Encounter. Date/Time Primary/Secondary Diagnosis Diagnosis Name Provider Source Sep 19, 2023 01:59 PM PRIMARY Persistent mood [affective] disorder, unspecified [facility] [place] [facility] Sep 19, 2023 01:59 PM SECONDARY Post-traumatic stress disorder, chronic LACHELLE PIERREGUY Teri Chan [facility] [place] [facility] Sep 19, 2023 01:59 PM SECONDARY Unsp symptoms and signs w cognitive functions and awareness [facility] [place] [facility] Plan of Treatment: Future Appointments (+ 6 months) and Future Tests (+/- 45 days) The Plan of Treatment section includes future care activities for the patient [facility] [place] [facility] This section includes future appointments and future orders which are active, pending or scheduled. Future Appointments This section includes appointments that were scheduled to occur 6 months from the date of the Encounter, up to a maximum of 20 appointments. The data comes from all [place] treatment facilities. Appointment Date/Time Appointment Type Appointme nt Facility Name Sep 25, 2023 09:00 AM AMBULATORY - PSYCHIATRY [facility] [place] [facility] Sep 30, 2023 07:00 AM AMBULATORY - PSYCHIATRY [facility] [place] [facility] Oct 02, 2023 09:00 AM AMBULATORY - PSYCHIATRY [facility] [place] [facility] Oct 09, 2023 09:00 AM AMBULATORY - PSYCHIATRY [facility] [place] [facility] Oct 16, 2023 09:00 AM AMBULATORY - PSYCHIATRY [facility] [place] [facility] Oct 23, 2023 09:00 AM AMBULATORY - PS[facility]CHIATRY [facility] [place] [facility] Oct 28, 2023 07:00 AM AMBULATORY - PSYCHIATRY [facility] [place] [facility] Oct 28, 2023 08:00 AM AMBULATORY - NEUROLOGY [facility] [place] [facility] Oct 28, 2023 09:30 AM AMBULATORY - PSYCHIATRY [facility] [place] [facility] Oct 30, 2023 09:00 AM AMBULATORY - PSYCHIATRY [facility] [place] [facility] Nov 06, 2023 09:00 AM AMBULATORY - PSYCHIATRY [facility] [place] [facility] Nov 13, 2023 09:00 AM AMBULATORY - PSYCHIATRY [facility] [place] [facility] Nov 19, 2023 07:00 AM AMBULATORY - PSYCHIATRY [facility] [place] [facility] Nov 20, 2023 09:00 AM AMBULATORY - PSYCHIATRY [facility] [place] [facility] Nov 27, 2023 09:00 AM AMBULATORY - PSYCHIATRY [facility] [place] [facility] Dec 04, 2023 09:00 AM AMBULATORY - PSYCHIATRY [facility] [place] [facility] Dec 11, 2023 09:00 AM AMBULATORY - PSYCHIATRY [facility] [place] [facility] Dec 16, 2023 09:30 AM AMBULATORY - PSYCHIATRY [facility] [place] [facility] Dec 18, 2023 09:00 AM AMBULATORY - PSYCHIATRY [facility] [place] [facility] Dec 19, 2023 07:30 AM AMBULATORY - MEDICINE [facility] Active, Pending, and Scheduled Orders This section includes a listing of several types of active, pending, and scheduled orders, including clinic medications orders, diagnostic test orders, procedure orders and consult orders; where the start date of the order is 45 days before the date of the Encounter or 45 days after the date of theEncounter. The data comes from all [place] treatment facilities. Test Date/Time Test Type Test Details Facility Name Oct 25, 2023 02:36 PM Consult Order COMMUNITY CARE-UROLOGY Cons Editor Continuity And Script's Choice [facility] [place] [facility] Oct 28, 2023 01:47 PM Consult Order COMMUNITY CARE-NEUROLOGY Cons Editor Continuity And Script's Choice [facility] Social History: Smoking Status (Most current) [...] 15, 2023 07:00 AM [facility] Tobacco Use History This section includes a history of the smoking, or tobacco-related health factors, that were collected on or before the date of the Encounter. The data comes from the [place] facility where the Encounter took place. Date/Time Smoking Status/Tobacco Use Comment F acility Apr 15, 2023 07:00 AM VA-TOBACCO QUIT 15 YRS OR MORE [facility] [place] [facility] Apr 24, 2022 07:00 AM VA-TOBACCO FORMER USER [facility] [place] [facility] Apr 24, 2022 07:00 AM [...] AM VA-TOBACCO QUIT 15 YRS OR MORE [facility] [place] [facility] Encounter Notes: [...] suicide attempt in 2005 and hospitalization at [facility] (overdose on morphine), also with an unclear [...] trazodone, but continued to have early childhood assistant awakening which resolved with addition of [...] this [facility] (local) and dispensed from another [place] or [facility] facility (remote) as well as [...] PIERRE PSYCHIATRIST Signed: 09/19/2023 13:59 SALLY PIERRE [facility]
--- OUTSIDE RECORDS SUMMARY | 2024-06-01 10:56 | XMS_ITS | Encounter Summary ---
Author Organization [facility], Address [address] [place] [address] Phone Care Team Providers Care Flotation Tender Helper Name Role Phone Luis F Lozada DO Primary Care Provide r Encounter Details Date Type Department Care Team (Late st Contact Info) Description 08/01/2021 Documentation Only [facility] [address] [place] [address] Camilo Terrell MD [address] [place] [address] [place] [address] Social History Tobacco Use Types [...] Visit [facility] [address] [place] [address] Camilo Terrell MD [address] [place] [address] documented as of this encounter Visit Diagnoses Not on filedocumented in this encounter Care Teams Flotation Tender Helper Relationship Specialty Start Date End Date Luis F Lozada DO [address] [facility] [address] [place] [address] PCP - General Internal Medicine 02/03/21 documented as of this encounter
--- OUTSIDE RECORDS SUMMARY | 2024-06-01 10:56 | XMS_ITS ---
Author Name [facility] [place] Organization [facility] [place] Address [address] [place] [address] Care Team Providers Care Stull Hewer Name Role Phone JOSE MANUEL PITT Primary [...] SUPPL EMENT A Feb 18, 2022 SUPP1 [id number] GINA DE LA ROSA PATIENT [facility] MED PREFER/SEN IOR CARE MEDICARE SUPPLEMEN BETY MEDIC ARE SUPPL EMENT A Feb 18, 2021 SUPP1 [id number] GINA DE LA ROSA PATIENT Selected Encounter This section includes the information on record at [place] for the Encounter. Date/Time Encounter Type Encounter Description Reason Pro vider Source May 25, 2024 01:56 PM Outpatient Encounter COMMUNITY CARE CONSULT IHE Encounter Template Text not used by VA Plan of Treatment: Future Appointments (+ 6 [...] The data comes from all [place] treatment [facility]. Appointment Date/Time Appointment Type Appointme nt Facility Name Jun 01, 2024 01:00 PM AMBULATORY - PSYCHIATRY [facility] Jun 03, 2024 09:00 AM AMBULATORY - PSYCHIATRY [place] [facility] [place] [facility] Jun 09, 2024 07:00 AM AMBULATORY - PSYCHIATRY [place] [facility] [place] [facility] Jun 10, 2024 09:00 AM AMBULATORY - PSYCHIATRY [place] [facility] [place] [facility] June 22, 2024 07:00 AM AMBULATORY - PSYCHIATRY [place] [facility] [place] [facility] July 06, 2024 07:00 AM AMBULATORY - PSYCHIATRY [place] [facility] [place] [facility] Jul 20, 2024 09:00 AM AMBULATORY - NEUROLOGY [place] [facility] [place] [facility] Aug 03, 2024 08:30 AM AMBULATORY - MEDICINE [place] [facility] [place] [facility] Sep 17, 2024 09:30 AM AMBULATORY - MEDICINE [facility] Active, Pending, and Scheduled Orders This section includes a listing of several types of active, pending, and scheduled orders, including clinic medications orders, diagnostic test orders, procedure orders and consult orders; where the start date of the order is 45 days before the date of the Encounter or 45 days after the date of theEncounter. The data comes from all [facility]. Test Date/Time Test Type Test Details Facility Name Apr 27, 2024 12:00 AM Laboratory - Chemi stry Order OCCULT BLOOD FIT X1 SCREEN (MFP ONLY) STOOL [facility]EC[facility] Social History: Smoking Status (Most current) [...] TYRONE OTHER TYPE [facility] [place] [facility] Tobacco Use History This section includes a history of the smoking, or tobacco-related health factors, that were collected on or before the date of the Encounter. The data comes from the [place] facility where the Encounter took place. Date/Time Smoking Status/Tobacco Use Comment F acility Mar 30, 2024 07:00 AM VA-TOBACCO USE FOR TYRONE OTHER TYPE [facility] [place] [facility] Apr 15, 2023 07:00 AM VA-TOBACCO FORMER USER [facility] [place] [facility] Apr 15, 2023 07:00 AM VA-TOBACCO QUIT 15 YRS OR MORE [facility] [place] [facility] Apr 24, 2022 07:00 AM VA-TOBACCO FORMER USER [facility] [place] [facility] Apr 24, 2022 07:00 AM VA-TOBACCO QUIT 15 YRS OR MORE [facility] [place] [facility] Apr 27, 2021 03:00 PM VA-TOBACCO FORMER USER [facility] [place] [facility] Apr 27, 2021 03:00 PM VA-TOBACCO QUIT 15 YRS OR MORE [facility] [place] [facility] Mar 17, 2020 03:00 PM VA-TOBACCO FORMER USER [facility] [place] [facility] Mar 17, 2020 03:00 PM VA-TOBACCO QUIT 15 YRS OR MORE [facility] [place] [facility] Mar 31, 2019 09:04 AM VA-TOBACCO FORMER USER [facility] [place] [facility] Mar 31, 2019 09:04 AM VA-TOBACCO QUIT 15 YRS OR MORE [place] [facility] [place] [facility] Encounter Notes: All associated encounter notes This section contains the clinical notes associated to the Encounter. Date/Time Encounter Note(s) Provider Source May 25, 2024 01:57 PM NONVA NOTE: LOCAL TITLE: COMMUNITY CARE-REQUEST FOR SERVICE NOTE STANDARD TITLE: NONVA NOTE DATE OF NOTE: MAY 25, 2024@13:57 ENTRY DATE: MAY 25, 2024@13:57:41 AUTHOR: DENYS SOLORIO COSIGNER: URGENCY: STATUS: COMPLETED COMMUNITY CARE-REQUEST FOR SERVICE NOTE Has ADDENDA Request for Services (RFS) documentation has been sent for scanning to [facility] Consult: COMM[facility]ITY [facility] A Request for Service (RFS) form [id number] has been received which includes the following: Care Requested:MACKENZIE ICD-10 Dx code: G47.33 Date VA received request: Apr Date service required: May [facility] [address] [place] [address] Khari, HOPE [address] Alert to PACT[facility] sleep medicine conslt for appt on 06/01 at 10 AM Thank you /leland SOLORIO [facility] RN Signed: 05/25/2024 14:00 Receipt Acknowledged By: 05/26/2024 08:34 /leland Williamson [facility] Primary Care Staff Nurse for JAYA YUSUF 05/26/2024 08:34 /leland Williamson [facility] Primary Care Staff Nurse 05/26/2024 ADDENDUM STATUS: COMPLETED On chart review there is no documentation about or a consult placed by PCP for this service. Vet has outisde PCP and unclear who ordered this testing. CC to contact [facility]- Vet has private insurance. /leland Williamson [facility] Primary Care Staff Nurse Signed: 05/26/2024 08:34 05/26/2024 ADDENDUM STATUS: COMPLETED Per discussion with PACT , CC RN will advise [facility] that will need to use Outside health insurance or schedule appt with PCP to discuss. /leland SOLORIO [facility] RN Signed: 05/26/2024 08:34 DENYS SOLORIO [place] [facility]
--- OUTSIDE RECORDS SUMMARY | 2024-06-01 10:56 | XMS_ITS | Encounter Summary ---
Author Name [facility] [place] Organization [facility] [place] Address [address] [place] [address] Care Team Providers Care Director Of Digital Platforms Name Role Phone JOSE MANUEL PITT Primary [...] SUPPL EMENT A Feb 18, 2022 SUPP1 [id number] [phone] GINA DE LA ROSA PATIENT [facility] MED PREFER/SEN IOR CARE MEDICARE SUPPLEMEN BETY MEDIC ARE SUPPL EMENT A Feb 18, 2021 SUPP1 [id number] GINA DE LA ROSA PATIENT Selected Encounter This section includes the information on record at [place] for the Encounter. Date/Time Encounter Type Encounter Description Reason Provider Source May 14, 2024 09:30 AM OFFICE O/P EST LOW 20 MIN PODIATRY ICD-10-CM L60.3 Nail dystrophy ASHLEIGH QUINTEROS Encounter Template Text not used by VA Assessments - Encounter Diagnoses This section includes the primary and secondary diagnoses documented for the Encounter. 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 This section includes future appointments and future orders which are active, pending or scheduled. Future Appointments This section includes appointments that were scheduled to occur 6 months from the date of the Encounter, up to a maximum of 20 appointments. The data comes from all [place] treatment facilities. Appointment Date/Time Appointment Type Appointme nt Facility Name May 20, 2024 09:00 AM AMBULATORY - PSYCHIATRY [facility] [place] [facility] May 21, 2024 02:00 PM AMBULATORY - MEDICINE [place] [facility] [place] [facility] May 25, 2024 07:00 AM AMBULATORY - PSYCHIATRY [facility] [place] [facility] Jun 01, 2024 01:00 PM AMBULATORY - PSYCHIATRY [facility] [place] [facility] Jun 03, 2024 09:00 AM AMBULATORY - PSYCHIATRY [facility] [place] [facility] Jun 09, 2024 07:00 AM AMBULATORY - PSYCHIATRY [facility] [place] [facility] Jun 10, 2024 09:00 AM AMBULATORY - PSYCHIATRY [facility] [place] [facility] June 22, 2024 07:00 AM AMBULATORY - PSYCHIATRY [facility] [place] [facility] July 06, 2024 07:00 AM AMBULATORY - PSYCHIATRY [facility] [place] [facility] Jul 20, 2024 09:00 AM AMBULATORY - NEUROLOGY [facility] [place] [facility] Aug 03, 2024 08:30 AM AMBULATORY - MEDICINE [place] [facility] [place] [facility] Sep 17, 2024 09:30 AM [facility] Active, Pending, and Scheduled Orders This section includes a listing of several types of active, pending, and scheduled orders, including clinic medications orders, diagnostic test orders, procedure orders and consult orders; where the start date of the order is 45 days before the date of the Encounter or 45 days after the date of theEncounter. The data comes from all [place] treatment facilities. Test Date/Time Test Type Test Details Facility Name Apr 27, 2024 12:00 AM Laboratory - Chemi stry Order OCCULT BLOOD FIT X1 SCREEN (MFP ONLY) STOOL FECES SP [place] [facility] [place] [facility] Encounter Notes: All associated encounter notes This section contains the clinical notes associated to the Encounter. Date/Time Encounter Note(s) Provider Source May 14, 2024 07:36 AM PODIATRY NOTE: LOCAL TITLE: PODIATRY NOTE STANDARD TITLE: PODIATRY NOTE DATE OF NOTE: MAY 14, 2024@07:36 ENTRY DATE: MAY 14, 2024@07:36:12 AUTHOR: ASHLEIGH QUINTEROS COSIGNER: URGENCY: STATUS: COMPLETED LAST SEEN FOR TREATMENT: 01/09/2024 NOTE: HAS RECEIVED BOTH COVID VACCINE DOSES + 2 BOOSTERS AT [facility] *PERFORMED AT CHECK-IN AND REVIEWED BY DR. QUINTEROS PRIOR TO TREATMENT* S: Pt. is a 68 yo alert [...] THE CC *NOTE: A1C=5.5 (LAST TAKEN: 11/2023) FBS=DNP RISK=3 HEIGHT:246.4 lb [111.77 kg] (07/29/2023 [...] strength and tone to be equal & symmetricalbilaterally & diminished for an individual of this age and present physical-medical condition. There is pain free ROM at all joints distal to and including the ankle. WEARS A DROP FOOT BRACE RT AND HAS AMPUTATION HALLUX RT AND 1-2 LEFT. NEUROLOGICAL: Exam reveals S/D, vibratory, light touch & proprioception sensations to be equal & symmetrical bilaterally & WNL/diminished for an individual of this age and present physical-medical status. Protective sensationutilizing a Adolphus-Vidhya lOg monofilament is 9/10RT & 8/10 LEFT. BIOMECHANICAL: Exam is deferred at this time due to the presence of pain/ as non-contributory to the cc . 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 RTC: 16 Weeks(09/17 @ 9:30) *DISCUSSED NEW PROTOCOLS AND CALLED MAKAYLA TODAY FOR RESCHEDULING I DISCUSSED THE FINDINGS & PLAN WITH PATIENT (UNCHANGED SINCE PREVIOUS VISIT) & PATIENT AGREES AND UNDERSTANDS PLAN DISCUSSED [employer] AND GLOBAL WARMING Medication Reconciliation: PERFORMED TODAY - SEE BELOW. Outpatient: Has the patient been taking medications as documented in the EMLR? YES: The patient has been taking medications as documented in the EMLR. Essential Medication List for Review used to complete this medication reconciliation. INCLUDED IN THIS LIST: Alphabetical list of active outpatient prescriptions dispensed from this [place] (local) and dispensed from another [place] or [facility] facility (remote) as well as inpatient [...] Remote Allergy/ADR Data available for this patient [place] [facility] [place] [facility] Med Recon NoGlossary (Tool #1) INCLUDED IN THIS LIST: Alphabetical list of active outpatient prescriptions dispensed from this [place] (local) and dispensed from another [place] or [facility] facility (remote) as well as inpatient orders (local pending and active), local clinic medications, locally documented non-VA medications, and local prescriptions that have or been discontinued in the past 90 days. Non-VA Meds Last Documented On: Jul 29, 2023 NOTE The display of VA prescriptions dispensed from another [place] or [facility] facility (remote) is limited to active outpatient prescription entries matched to National Drug File at the originating site and may not include some items such as investigational drugs, compounds, etc. NOT INCLUDED IN THIS LIST: Medications self-entered by the patient into personal health records (i.e. [employer]) are NOT included in this list. Non-VA medications documented outside this [place], remote inpatient orders (regardless of status) and [...] FOR DRY IRRITATED SKIN UNDER OCCLUSION Rx# [id number] Last Released: 08/23/23 Qty/Days Supply: 240/60 Rx Expiration Date: 08/21/24 Refills Remainin Indication: FOR DRY SKIN OUTPT ARMODAFINIL 50MG TAB (Status = Discontinued) TAKE TWO TABLETS BY MOUTH EVERY MORNING Rx# [id number] Last Released: 02/24/24 Qty/Days Supply: 60/30 Rx Expiration Date: 06/17/24 Refills Remainin Indication: TO IMPROVE WAKEFULNESS OUTPT ARMODAFINIL 50MG TAB (Status = Active) TAKE TWO TABLETS BY MOUTH EVERY MORNING Rx# [id number] Last Released: 05/04/24 Qty/Days Supply: Rx Expiration Date: 09/30/24 Refills Remainin Indication: TO IMPROVE WAKEFULNESS Non-VA ATORVASTATIN CALCIUM 80MG TAB TAKE ONE TABLET BY MOUTH ONCE DAILY Medication prescribed by Non-VA provider. per neurology notes 12/29/2018 - OUTPT BREXPIPRAZOLE 2MG TAB (Status = Active) TAKE ONE TABLET BY MOUTH ONCE DAILY Rx# [id number] Last Released: 01/29/24 Qty/Days Supply: Rx Expiration Date: 01/27/25 Refills Remainin Indication: MOOD OUTPT CLONIDINE HCL 0.1MG TAB (Status = Discontinued) TAKE ONE TABLET BY MOUTH AT BEDTIME FOR INSOMNIA Rx# [id number] Last Released: 03/20/24 Qty/Days Supply: Rx Expiration Date: 11/25/24 Refills Remainin Indication: INSOMNIA OUTPT CLONIDINE HCL 0.1MG TAB (Status = Active) TAKE ONE TABLET BY MOUTH AT BEDTIME FOR INSOMNIA Rx# [id number] Last Released: 04/01/24 Qty/Days Supply: Rx Expiration Date: 03/31/25 Refills Remainin Indication: INSOMNIA Non-VA CLOPIDOGREL BISULFATE [...] FOR 12 HOURS, THEN REMOVE PATCH) Rx# [id number] Last Released: 07/30/23 Qty/Days Supply: Rx Expiration [...] ONE TABLET BY MOUTH ONCE DAILY Rx# [id number] Last Released: Qt/Days Supply: Rx Expiration Date: 10/23/24 Refills Remainin Non-VA OMEPRAZOLE 20MG EC CAP TAKE 2 CAPSULES BY MOUTH ONCE DAILY Medication prescribed by Non-VA provider. per neurology notes 12/29/2018 - OUTPT ONABOTULINUMTOXINA 200 UNIT/FRANCISCO J INJ (Status = Discontinued) INJECT DIRECTED INTRAMUSCULARLY EVERY THREE MONTHS FOR MIGRAINE HEADACHES Rx# [id number] Last Released: 04/08/24 Qty/Days Supply: Rx Expiration Date: 07/22/24 Refills Remainin OUTPT ONABOTULINUMTOXINA 200 UNIT/FRANCISCO J INJ (Status = Active/Suspended) INJECT DIRECTED INTRAMUSCULARLY EVERY THREE MONTHS FOR MIGRAINE HEADACHES Rx# [id number] Last Released: Qt/Days Supply: Rx Expiration Date: 04/21/25 Refills Remainin Non-VA POLYETHYLENE GLYCOL 3350 ORAL [...] BY MOUTH AT BEDTIME FOR INSOMNIA Rx# [id number] Last Released: 12/11/23 Qty/Days Supply: Rx Expiration Date: 11/25/24 Refills Remainin Indication: INSOMNIA OUTPT TRAZODONE HCL 100MG TAB (Status = Active) TAKE TWO TABLETS BY MOUTH AT BEDTIME FOR INSOMNIA Rx# [id number] Last Released: 03/30/24 Qty/Days Supply: 180/90 Rx Expiration Date: 03/31/25 Refills Remainin Indication: INSOMNIA OUTPT TROSPIUM CL 20MG TAB (Status = Discontinued) TAKE ONE TABLET BY MOUTH TWICE DAILY ON AN EMPTY STOMACH Rx# [id number] Last Released: 02/24/24 Qty/Days Supply: 60/30 Rx Expiration Date: 10/28/24 Refills Remainin OUTPT TROSPIUM CL 20MG TAB (Status = Active) TAKE ONE TABLET BY MOUTH TWICE DAILY Rx# [id number] Last Released: 05/04/24 Qty/Days Supply: 6030 Rx Expiration Date: 04/01/25 Refills Remainin SUPPLIES /nicole/ ASHLEIGH QUINTEROS DPM DOG SITTER Signed: 05/14/2024 09:58 ASHLEIGH QUINTEROS [place]
--- OUTSIDE RECORDS SUMMARY | 2024-06-01 10:56 | XMS_ITS ---
Author Name [facility] [place] Address [address] [place] [address] Care Team Providers Care Mobility Engineer Name Role Phone JOSE MANUEL PITT [...] SUPPL EMENT A Feb 18, 2022 SUPP1 [id number] [phone] GINA DE LA ROSA PATIENT [facility] MED PREFER/SEN IOR CARE MEDICARE SUPPLEMEN BETY MEDIC ARE SUPPL EMENT A Feb 18, 2021 SUPP1 [id number] GINA DE LA ROSA PATIENT Selected Encounter This section includes the information on record at [place] for the Encounter. Date/Time Encounter Type Encounter Description Reason Provider Source May 04, 2024 07:00 AM PSYTX W PT 45 MINUTES [facility] - IND ICD-10-CM F43.12 Post-traumatic stress disorder, chronic MOISES PADILLA Encounter Template Text not used by [place] Assessments - Encounter Diagnoses This section includes the primary and secondary diagnoses documented for the Encounter. Date/Time Primary/Secondary Diagnosis Diagnosis Name Provider Source May 04, 2024 07:56 AM PRIMARY Post-traumatic stress disorder, chronic MOISES PADILLA [place] [facility] [place] [facility] May 04, 2024 07:56 AM SECONDARY Persistent mood [affective] disorder, unspecified MOISES PADILLA [place] [facility] [place] [facility] May 04, 2024 07:56 AM SECONDARY Unsp symptoms and signs w cognitive functions and awareness MOISES PADILLA [place] [facility] [place] [facility] Plan of Treatment: Future Appointments (+ 6 months) and Future Tests (+/- 45 days) The Plan of Treatment section includes future care activities for the patient from all [place] [facility]. This section includes future appointments and [...] AMBULATORY - PSYCHIATRY [facility] [place] [facility] May 14, 2024 09:30 AM AMBULATORY - MEDICINE [facility] May 20, 2024 09:00 AM AMBULATORY - PSYCHIATRY [facility] [place] [facility] May 21, 2024 02:00 PM AMBULATORY - MEDICINE VA C [facility] [place] [facility] May 25, 2024 07:00 AM AMBULATORY - PSYCHIATRY [facility] [place] [facility] Jun 01, 2024 01:00 PM AMBULATORY - PSYCHIATRY [facility] [place] [facility] Jun 03, 2024 09:00 AM AMBULATORY - PSYCHIATRY [facility] [place] [facility] Jun 09, 2024 07:00 AM AMBULATORY - PSYCHIATRY [facility] [place] [facility] Jun 10, 2024 09:00 AM AMBULATORY - PSYCHIATRY [facility] [place] [facility] June 22, 2024 07:00 AM AMBULATORY - PSYCHIATRY [facility] [place] [facility] July 06, 2024 07:00 AM AMBULATORY - PSYCHIATRY [facility] [place] [facility] Jul 20, 2024 09:00 AM AMBULATORY - NEUROLOGY [facility] [place] [facility] Aug 03, 2024 08:30 AM AMBULATORY - MEDICINE VA C [facility] [place] [facility] Sep 17, 2024 09:30 AM AMBULATORY - MEDICINE [facility] Active, Pending, and Scheduled Orders This section includes a listing of several types of active, pending, and scheduled orders, including clinic medications orders, diagnostic test orders, procedure orders and consult orders; where the start date of the order is 45 days before the date of the Encounter or 45 days after the date of theEncounter. The data comes from all [place] treatment facilities. Test Date/Time Test Type Test Details Facility Name Apr 27, 2024 12:00 AM Laboratory - Chemi stry Order OCCULT BLOOD FIT X1 SCREEN (MFP ONLY) STOOL FECES SP [place] [facility] [place] [facility] Social History: Smoking Status (Most [...] VA-TOBACCO USE FOR TYRONE OTHER TYPE [facility] Tobacco Use History This section includes a history of the smoking, or tobacco-related health factors, that were collected on or before the date of the Encounter. The data comes from the [place] facility where the Encounter took place. Date/Time Smoking Status/Tobacco Use Comment F acility Mar 30, 2024 07:00 AM VA-TOBACCO USE FOR TYRONE OTHER TYPE VA [facility] [place] [facility] Apr 15, 2023 07:00 AM VA-TOBACCO FORMER USER [place] [facility] [place] [facility] Apr 15, 2023 07:00 AM VA-TOBACCO QUIT 15 YRS OR MORE [facility] [place] [facility] Apr 24, 2022 07:00 AM VA-TOBACCO FORMER USER [place] [facility] [place] [facility] Apr 24, 2022 07:00 AM VA-TOBACCO QUIT 15 YRS OR MORE NH [facility] [place] [facility] Apr 27, 2021 03:00 PM VA-TOBACCO FORMER USER [place] [facility] [place] [facility] Apr 27, 2021 03:00 PM VA-TOBACCO QUIT 15 YRS OR MORE [facility] [place] [facility] Mar 17, 2020 03:00 PM VA-TOBACCO FORMER USER [place] [facility] [place] [facility] Mar 17, 2020 03:00 PM VA-TOBACCO QUIT 15 YRS OR MORE [facility] [place] [facility] Mar 31, 2019 09:04 AM VA-TOBACCO FORMER USER [place] [facility] [place] [facility] Mar 31, 2019 09:04 AM VA-TOBACCO QUIT 15 YRS OR MORE NH [facility] [place] [facility] Encounter Notes: All associated encounter notes This section contains the clinical notes associated to the Encounter. Date/Time Encounter Note(s) Provider Source May 04, 2024 06:46 AM PSYCHOLOGY NOTE: LOCAL TITLE: PSYCHOLOGY NOTE STANDARD TITLE: PSYCHOLOGY NOTE DATE OF NOTE: MAY 04, 2024@06:46 ENTRY DATE: MAY 04, 2024@06:46:58 AUTHOR: MOISES PADILLA COSIGNER: URGENCY: STATUS: COMPLETED [place] was identified by Visual recognition and patient [...] We're falling into the routine of cancer. described the patterns that they are starting to learn as they are reaching about the half way point of Carlyn's Chemotherapy journey. We discussed the sense of control that the predictability gives him, which was normalized. [place] noted a tendency to tune out and become numb during Carlyn's repetitive re-telling of the story to others. I don't feel anything. I think I went inside. Psychoeducation on dissociation was done and he was shown an experiential exercise to help identify his feelings. [place] was encouraged to continue to find ways to leave the room and involve himself in productive projects during those times instead of sitting and listening to her re-tell about the cancer diagnosis. Aury however was happy to share that she has joined a therapy/support group so now has some outside help. This is a big relief for Broderick as it was something he had been advocating for. Lastly, [place] was reminded to break projects into smaller [...] Staff Psychologist Signed: 05/04/2024 07:57 MOISES PADILLA [place] [facility]
--- OUTSIDE RECORDS SUMMARY | 2024-06-01 10:56 | XMS_ITS | Encounter Summary ---
Author Name [facility] [place] [facility] [place] Organization [facility] [place] Address [address] [place] [address] Care Team Providers Care Program Counselor Name Role Phone JOSE MANUEL PITT Primary [...] SUPPL EMENT A Feb 18, 2022 SUPP1 [id number] [phone] GINA DE LA ROSA [facility]SEN IOR CARE MEDICARE SUPPLEMEN BETY MEDIC ARE SUPPL EMENT A Feb 18, 2021 SUPP1 [id number] GINA DE LA ROSA PATIENT Selected [...] chronic MARIALUISA SALCEDO [place] [facility] [place] [facility] Plan of Treatment: Future Appointments (+ [...] AMBULATORY - PSYCHIATRY [facility] [place] [facility] Oct 23, 2023 09:00 AM AMBULATORY - PSYCHIATRY [facility] [place] [facility] Oct 28, 2023 07:00 AM AMBULATORY - PSYCHIATRY [facility] [place] [facility] Oct 28, 2023 08:00 AM AMBULATORY - NEUROLOGY [facility] [place] [facility] Oct 28, 2023 09:30 AM AMBULATORY - PSYCHIATRY [facility] [place] [facility] Oct 30, 2023 09:00 AM AMBULATORY - PSYCHIATRY [facility] [place] [facility] Nov 06, 2023 09:00 AM AMBULATORY - PSYCHIATRY [facility] [place] [facility] Nov 13, 2023 09:00 AM AMBULATORY - PSYCHIATRY [facility] [place] [facility] Nov 19, 2023 07:00 AM AMBULATORY - PSYCHIATRY [facility] [place] [facility] Nov 20, 2023 09:00 AM AMBULATORY - PSYCHIATRY [facility] [place] [facility] Nov 27, 2023 09:00 AM AMBULATORY - PSYCHIATRY [facility] [place] [facility] Dec 04, 2023 09:00 AM AMBULATORY - PSYCHIATRY [facility] [place] [facility] Dec 11, 2023 09:00 AM AMBULATORY - PSYCHIATRY [facility] [place] [facility] Dec 16, 2023 09:30 AM AMBULATORY - PSYCHIATRY [facility] [place] [facility] Dec 18, 2023 09:00 AM AMBULATORY - PSYCHIATRY VA [facility] [place] [facility] Dec 19, 2023 07:30 AM AMBULATORY - MEDICINE MD C [facility]TRL [facility] [place] [facility] Dec 23, 2023 07:00 AM AMBULATORY - PSYCHIATRY MD [facility] [place] [facility] Dec 25, 2023 09:00 AM AMBULATORY - PSYCHIATRY MD [facility] [place] [facility] Jan 01, 2024 09:00 AM AMBULATORY - PSYCHIATRY MD [facility] [place] [facility] Jan 08, 2024 09:00 AM AMBULATORY - PSYCHIATRY MD [facility] [place] [facility] Active, Pending, and Scheduled Orders This [...] 02:36 PM Consult Order COMMUNITY CARE-UROLOGY Cons Territory Sales Consultant's Choice MD [facility] [place] [facility] Oct 28, 2023 01:47 PM Consult Order COMMUNITY CARE-NEUROLOGY Cons Territory Sales [facility]'s [facility] [place] [facility] Social History: Smoking Status (Most current) [...] 15, 2023 07:00 AM VA-TOBACCO FORMER USER [facility] Tobacco Use History This section includes a history of the smoking, or tobacco-related health factors, that were collected on or before the date of the Encounter. The data comes from the [place] facility where the Encounter took place. Date/Time Smoking Status/Tobacco Use Comment F acility Apr 15, 2023 07:00 AM VA-TOBACCO QUIT 15 YRS OR MORE MD [facility] [place] [facility] Apr 24, 2022 07:00 AM VA-TOBACCO FORMER USER MD CNTR [facility] [place] [facility] Apr 24, 2022 07:00 AM VA-TOBACCO QUIT 15 YRS OR MORE VA [facility] [place] [facility] Apr 27, 2021 03:00 PM VA-TOBACCO FORMER USER VA [facility] [place] [facility] Apr 27, 2021 03:00 PM VA-TOBACCO QUIT 15 YRS OR MORE VA [facility] [place] [facility] Mar 17, 2020 03:00 PM VA-TOBACCO FORMER USER VA [facility] [place] [facility] Mar 17, 2020 03:00 PM VA-TOBACCO QUIT 15 YRS OR MORE VA [facility] [place] [facility] Mar 31, 2019 09:04 AM VA-TOBACCO FORMER USER VA [facility] [place] [facility] Mar 31, 2019 09:04 AM VA-TOBACCO QUIT 15 YRS OR MORE MD [facility] [place] [facility] Encounter Notes: All associated encounter notes [...] 9 AM Number of group members: 9 Cyber Security Administrator: Marialuisa Salcedo, [facility] Group began with a introduction [...] the meditation. Today's theme was on milind. [place] engaged with photographic engineer and group members appropriately, participating in the meditation and reflection time. [place] did not endorse SI/HI. stated their intention wsa to relax and experience milind. DIAGNOSES: Persistent mood disorder, unspecified PTSD, chronic Cognitive Disorder (History of) Cerebral Infarction, Unspecified VA Video Connect (VVC) Standard Documentation VVC Clinician Resources Only: E911 (Emergency Call Relay Center): [phone] [facility] Crisis Line - 988 then press #1. [facility] Suicide Coordinator [phone], Ext. [phone]; Back-up Ext. [phone] [place] Police, BETH, Sangeeta [phone] Introduction: Visit is being conducted by [place] [employer] Connect. [place] identified with 2 identifiers: [X] Full Name [X] Date of [ ] VA ID Card Emergency Plan: confirmed and/or provided the following information in case of emergency or technology failure. PATIENT PHONE - PHONE NUMBER [CELLULAR] - Is patient phone number correct, if not, enter below: 's phone number: TAJ DE LA ROSA [address], [place], [address] 's present location and address for appointment: his home 's emergency contact name and phone number: E-Cont.: JUVENCIO DE LA ROSA Relation Type: UNRELATED FRIEND/OTHER Relation Note: OTHERS [address] [place] [address] [facility] [place] reported that location is private and safe: Yes Informed Consent: [place] informed of the risks and benefits of Telehealth video care. has the right to refuse video services. If refuses video visit, a [id number] visit will be scheduled. [place] verbalized consent for this video visit: Yes provided consent for any other persons present for visit: Yes If yes, who and relationship to patient:group Secure visit: Visit was locked for security and privacy:Yes /nicole/ REBECA CARABALLO Facility Examiner Signed: 10/09/2023 10:14 MARIALUISA SALCEDO MD CNTRL W[facility]
--- OUTSIDE RECORDS SUMMARY | 2024-06-01 10:56 | XMS_ITS ---
Author Name [place] Address [address] [place] [address] Care Team Providers Care Human Resources Trainer Name Role Phone JOSE MANUEL PITT Primary [...] Burgess's Name Patient's Relationship to Policy Burgess [facility] HEALTH PLAN MEDICARE SUPPLEMEN BETY MEDIC ARE SUPPL EMENT A Feb 18, 2022 SUPP1 [id number] [phone] GINA DE LA ROSA PATIENT [facility] MED PREFER/SEN IOR CARE MEDICARE SUPPLEMEN BETY MEDIC ARE SUPPL EMENT A Feb 18, 2021 SUPP1 [id number] [phone] GINA DE LA ROSA PATIENT Selected Encounter This section includes the information on record at [place] for the Encounter. Date/Time Encounter Type Encounter Description Reason Provider Source Apr 29, 2024 09:00 AM GROUP PSYCHOTHERAPY [facility]-GROUP ICD-10-CM F43.12 Post-traumati c stress disorder, chronic MARIALUISA SALCEDO Encounter Template Text not used by [place] Assessments - Encounter Diagnoses This section includes the primary and secondary diagnoses documented for the Encounter. Date/Time Primary/Secondary Diagnosis Diagnosis Name Provider Source Apr 29, 2024 11:50 AM PRIMARY Post-traumatic stress disorder, chronic MARIALUISA SALCEDO [facility] [place] [facility] Plan of Treatment: Future Appointments [...] - PSYCHIATRY [facility] [place] [facility] May 04, 2024 10:15 AM AMBULATORY - MEDICINE VA C [facility]L [facility] [place] [facility] May 06, 2024 09:00 AM AMBULATORY - PSYCHIATRY [place] [facility] [place] [facility] May 14, 2024 09:30 AM AMBULATORY - MEDICINE [facility] May 20, 2024 09:00 AM AMBULATORY - PSYCHIATRY [place] [facility] [place] [facility] May 21, 2024 02:00 PM AMBULATORY - MEDICINE VA C [facility] [place] [facility] May 25, 2024 07:00 AM AMBULATORY - PSYCHIATRY [place] [facility] [place] [facility] Jun 01, 2024 01:00 PM AMBULATORY - PSYCHIATRY [place] [facility] [place] [facility] Jun 03, 2024 09:00 AM AMBULATORY - PSYCHIATRY [place] [facility] [place] [facility] Jun 09, 2024 07:00 AM AMBULATORY - PSYCHIATRY [place] [facility] [place] [facility] Jun 10, 2024 09:00 AM AMBULATORY - PSYCHIATRY [place] [facility] [place] [facility] June 22, 2024 07:00 AM AMBULATORY - PSYCHIATRY [place] [facility] [place] [facility] July 06, 2024 07:00 AM AMBULATORY - PSYCHIATRY [place] [facility] [place] [facility] Jul 20, 2024 09:00 AM AMBULATORY - NEUROLOGY [place] [facility] [place] [facility] Aug 03, 2024 08:30 AM AMBULATORY - MEDICINE VA C [facility] [place] [facility] Sep 17, 2024 09:30 AM AMBULATORY - MEDICINE [facility] Active, Pending, and Scheduled Orders This [...] X1 SCREEN (MFP ONLY) STOOL FECES SP [facility] Social History: Smoking Status (Most [...] AM VA-TOBACCO USE FOR TYRONE OTHER TYPE [facility] Tobacco Use History This section includes a history of the smoking, or tobacco-related health factors, that were collected on or before the date of the Encounter. The data comes from the [place] facility where the Encounter took place. Date/Time Smoking Status/Tobacco Use Comment F acility Mar 30, 2024 07:00 AM VA-TOBACCO USE FOR TYRONE OTHER TYPE [place] [facility]TRL [facility] [facility] Apr 15, 2023 07:00 AM VA-TOBACCO FORMER USER [place] [facility] [facility] Apr 15, 2023 07:00 AM VA-TOBACCO QUIT 15 YRS OR MORE [place] [facility] [facility] Apr 24, 2022 07:00 AM VA-TOBACCO FORMER USER [place] [facility] [facility] Apr 24, 2022 07:00 AM VA-TOBACCO QUIT 15 YRS OR MORE [place] [facility] [facility] Apr 27, 2021 03:00 PM VA-TOBACCO FORMER USER [place] [facility] [facility] Apr 27, 2021 03:00 PM VA-TOBACCO QUIT 15 YRS OR MORE [place] [facility] [facility] Mar 17, 2020 03:00 PM VA-TOBACCO FORMER USER VA [facility] [facility] Mar 17, 2020 03:00 PM VA-TOBACCO QUIT 15 YRS OR MORE [place] [facility] [facility] Mar 31, 2019 09:04 AM VA-TOBACCO FORMER USER VA [facility] [facility] Mar 31, 2019 09:04 AM VA-TOBACCO QUIT 15 YRS OR MORE VA [facility] [facility] Encounter Notes: All associated encounter [...] Time: 9 AM Number of group members: Dredge Pump Operator: Marialuisa Salcedo [facility] Group began with a [...] thoughts. Today's theme was on inner resource. [place] engaged with exerciser and group members appropriately, participating in the meditation and reflection time. did not endorse SI/HI. 's intention was to relax and find peace. DIAGNOSES: Persistent mood disorder, unspecified PTSD, chronic Cognitive Disorder (History of) Cerebral Infarction, Unspecified VA Video Connect (VVC) Standard Documentation VVC Clinician Resources Only: E911 (Emergency Call Relay Center): [phone] [facility] Crisis Line - 822 then press #1. [facility] Suicide Coordinator [phone], Ext. [phone]; Back-up Ext. [phone] [place] Police, Sangeeta CAMPOS [phone] Introduction: Visit is being conducted by [place] Video Connect. [place] identified with 2 identifiers: [X] Full Name [X] Date of [ ] VA ID Card Emergency Plan: [place] confirmed and/or provided the following information in case of emergency or technology failure. PATIENT PHONE - PHONE NUMBER [CELLULAR] - Is patient phone number correct, if not, enter below: [place]'s phone number: TAJ DE LA ROSA [address], [place], [address] [place]'s present location and address for appointment: his home [place]'s emergency contact name and phone number: E-Cont.: JUVENCIO DE LA ROSA Relation Type: UNRELATED FRIEND/OTHER Relation Note: [place]TH[address] [place] [address] [facility] Hern[place] reported that location is private and safe: Yes Informed Consent: informed of the risks and benefits of Telehealth video care. has the right to refuse video services. If refuses video visit, a [id number] visit will be scheduled. [place] verbalized consent for this video visit: Yes [place] provided consent for any other persons present for visit: Yes If yes, who and relationship to patient:group Secure visit: Visit was locked for security and privacy:Yes /nicole/ REBECA CARABALLO [employer] Signed: 04/29/2024 11:51 MARIALUISA SALCEDO [place] CNTRL TRN [facility]
--- OUTSIDE RECORDS SUMMARY | 2024-06-01 10:56 | XMS_ITS | Encounter Summary ---
Author Name [facility] [place] Organization [place] Address [address] [place] [address] Care Team Providers Care Labor Economist Name Role Phone JOSE MANUEL PITT Primary [...] SUPPL EMENT A Feb 18, 2022 SUPP1 [id number] GINA DE LA ROSA PATIENT [facility] MED PREFER/SEN IOR CARE MEDICARE SUPPLEMEN BETY MEDIC ARE SUPPL EMENT A Feb 18, 2021 SUPP1 [id number] [phone] GINA DE LA ROSA PATIENT Selected [...] Persistent mood [affective] disorder, unspecified MOISES PADILLA [place] [facility]TR[facility] [place] [facility] Sep 02, 2023 07:58 AM SECONDARY Cerebral infarction, unspecified MOISES PADILLA [place] [facility] [place] [facility] Sep 02, 2023 07:58 AM SECONDARY Post-traumatic stress disorder, chronic MOISES PADILLA [place] [facility] [place] [facility] Sep 02, 2023 07:58 AM SECONDARY Unsp symptoms and signs w cognitive functions and awareness MOISES PADILLA [place] [facility] [place] [facility] Plan of [...] 09, 2023 05:00 PM AMBULATORY - PSYCHIATRY ME CNTRL [facility] [place] [facility] Sep 11, 2023 09:00 AM AMBULATORY - PSYCHIATRY VA [facility] [place] [facility] Sep 19, 2023 01:30 PM AMBULATORY - PSYCHIATRY VA [facility] [place] [facility] Sep 25, 2023 09:00 AM AMBULATORY [...] AMBULATORY - PSYCHIATRY ME CNTR[facility] [place] [facility] Social History: Smoking Status (Most [...] 15, 2023 07:00 AM VA-TOBACCO [facility] Tobacco Use History This section includes a history of the smoking, or tobacco-related health factors, that were collected on or before the date of the Encounter. The data comes from the [place] facility where the Encounter took place. Date/Time Smoking Status/Tobacco Use Comment F acility Apr 15, 2023 07:00 AM VA-TOBACCO QUIT 15 YRS OR MORE [place] CNTRL [facility] [place] [facility] Apr 24, 2022 07:00 AM VA-TOBACCO FORMER USER VA CNTRL [facility] [facility] Apr 24, 2022 07:00 AM VA-TOBACCO QUIT 15 YRS OR MORE ME CNTRL [facility] [place] [facility] Apr 27, [...] VA-TOBACCO QUIT 15 YRS OR MORE ME CNTRL [facility] [place] [facility] Encounter Notes: [...] Adding Dr. Stanford to today's note regarding [place]'s recent mood disturbance. /nicole/ Moises Padilla PsyD [...] PSYCHIATRIST Signed: 09/02/2023 14:01 [facility]
--- OUTSIDE RECORDS SUMMARY | 2024-06-01 10:57 | XMS_ITS | Encounter Summary ---
Author Name [facility] [place] Address [address] [place] [address] Care Team Providers Care Supervisor Feed Mill Name Role Phone JOSE MANUEL PITT Primary [...] Burgess's Name Patient's Relationship to Policy Burgess [facility] HEALTH PLAN MEDICARE SUPPLEMEN BETY MEDIC ARE SUPPL EMENT A Feb 18, 2022 SUPP1 [id number] [phone] GINA CISNEROS PATIENT [facility] MED PREFER/SEN IOR CARE MEDICARE SUPPLEMEN BETY MEDIC ARE SUPPL EMENT A Feb 18, 2021 SUPP1 [id number] GINA CISNEROS PATIENT Selected Encounter This section includes the information on record at [place] for the Encounter. Date/Time Encounter Type Encounter Description Reason Provider Source Dec 23, 2023 07:00 AM PSYTX W PT 45 MINUTES [facility] - IND ICD-10-CM F43.12 Post-traumatic stress disorder, chronic MOISES PADILLA Encounter Template Text not used by [place] Assessments - Encounter Diagnoses This section includes the primary and secondary diagnoses documented for the Encounter. Date/Time Primary/Secondary Diagnosis Diagnosis Name Provider Source Dec 23, 2023 07:58 AM PRIMARY Post-traumatic stress disorder, chronic MOISES PADILLA [place] [facility] [place] [facility] Dec 23, 2023 07:58 AM SECONDARY Cerebral infarction, unspecified MOISES PADILLA [place] [facility] [place] [facility] Dec 23, 2023 07:58 AM SECONDARY Persistent mood [affective] disorder, unspecified MOISES PADILLA [place] [facility] [place] [facility] Dec 23, 2023 07:58 AM SECONDARY Unsp symptoms and signs w cognitive functions and awareness BETHMOISES Williamson [facility] [place] [facility] Plan of Treatment: Future Appointments (+ 6 months) and Future Tests (+/- 45 days) The Plan of Treatment section includes future care activities for the [facility] [place] [facility]. This section includes future appointments and future [...] 25, 2023 09:00 AM AMBULATORY - PSYCHIATRY [place] [facility] [place] [facility] Jan 01, 2024 09:00 AM AMBULATORY - PSYCHIATRY [place] [facility] [place] [facility] Jan 08, 2024 09:00 AM AMBULATORY - PSYCHIATRY [place] [facility] [place] [facility] Jan 09, 2024 09:30 AM AMBULATORY - MEDICINE [facility] Jan 14, 2024 07:00 AM AMBULATORY - PSYCHIATRY [place] [facility] [place] [facility] Jan 20, 2024 08:30 AM AMBULATORY - NEUROLOGY [place] [facility] [place] [facility] Jan 22, 2024 09:00 AM AMBULATORY - PSYCHIATRY [place] [facility] [place] [facility] Jan 27, 2024 01:30 PM AMBULATORY - PSYCHIATRY [place] [facility] [place] [facility] Jan 29, 2024 09:00 AM AMBULATORY - PSYCHIATRY [place] [facility] [place] [facility] Feb 05, 2024 09:00 AM AMBULATORY - PSYCHIATRY [place] [facility] [place] [facility] Feb 10, 2024 07:00 AM AMBULATORY [...] [facility] [place] [facility] Lab Results: +/- 30 days of the encounter This section includes the Chemistry and Hematology Lab Results on record with [place] for the patient. Radiology Reports and Pathology Reports are provided separately, in subsequent sections. Lab Results This section contains the Chemistry/Hematology Results that were resulted 30 days before or 30 daysafter the date of the Encounter. Date/Time Source Result Type Result - Unit Interpretation Reference Range Specimen Type Comment Dec 19, 2023 07:55 AM [facility] FOLATE (WROX) SERUM Specimen Type: SERUM No comment entered. Ordering Provider: SALLY STANFORD Report Released Date/Time: Oct 28, 2023 09:59 AM Reporting Lab: [facility] [place] [facility] [address] [facility] [address] Performing Lab: [facility] [place] [facility] [address] [facility] [address] FOLATE (WROX) 9.07 ng/mL >5.2 Dec 19, 2023 07:55 AM [facility] TSH SERUM Specimen Type: SERUM No comment entered. Ordering Provider: SALLY STANFORD Report Released Date/Time: Oct 28, 2023 09:59 AM Reporting Lab: [facility] [address] [facility] [address] Performing Lab: [facility] TRN [facility] [address] [facility] [address] TSH 1.09 u[IU]/mL 0.35-5.00 Dec 19, 2023 07:55 AM [facility] VITAMIN B12 SERUM Specimen Type: SERUM No comment entered. Ordering Provider: SALLY STANFORD Report Released Date/Time: Oct 28, 2023 09:59 AM Reporting Lab: [facility] [address] [facility] [address] Performing Lab: [facility] [address] [facility] [address] VITAMIN B12 297 pg/mL 200-900 Dec 19, 2023 07:55 AM [facility] VITAMIN D (25-OH) SERUM Specimen Type: SERUM No comment entered. Ordering Provider: SALLY STANFORD Report Released Date/Time: Oct 28, 2023 09:59 AM Reporting Lab: [facility] [address] [facility] [address] Performing Lab: [facility] [address] [facility] [address] VITAMIN D (25-OH) 38 ng/mL 20-50 Dec 19, 2023 07:55 AM [facility] LIPID PANEL FASTING SERUM Specimen Type: SERU M No comment entered. Ordering Provider: SALLY STANFORD Report Released Date/Time: Dec 16, 2023 09:50 AM Reporting Lab: [facility] [address] [facility] [address] Performing Lab: [facility] [address] [address] CHOLESTEROL 113 mg/dL TRIGLYCERIDE 85 mg/dL 0-150 LDL calculated 50 mg/dL 0-129 CHOL/HDL 2.5 HDL CHOLESTEROL 46 mg/dL 40-60 Dec 19, 2023 07:55 AM [facility] HEMOGLOBIN A1C PANEL BLOOD Specimen Type: BLO OD Comment: Values obtained from A1C measurements can vary. For atypical A1C assays, a reported value of 7.0 could actually be between 6.72 and 7.28 if measured by a reference method. A reported value of 9.0 could actually be between 8.73 and 9.27. Ref: http://www.ngsp.org/CAPdata.asp Ordering Provider: SALLY STANFORD Report Released Date/Time: Dec 16, 2023 09:50 AM Reporting Lab: [address] [address] Performing Lab: [address] [address] HEMOGLOBIN A1C 5.5 4.0-5.6 Dec 19, 2023 07:55 AM [facility] BASIC METABOLIC PANEL (fasting) SERUM Specime n Type: SERUM No comment entered. Ordering Provider: SALLY STANFORD Report Released Date/Time: Dec 16, 2023 09:50 AM Reporting Lab: [address] [address] Performing Lab: [address] [address] UREA NITROGEN 18 mg/dL 7-25 GLUCOSE 117 [...] 15, 2023 07:00 AM VA-TOBACCO FORMER USER [facility] Tobacco Use History This section includes a history of the smoking, or tobacco-related health factors, that were collected on or before the date of the Encounter. The data comes from the [place] facility where the Encounter took place. Date/Time Smoking Status/Tobacco Use Comment F acility Apr 15, 2023 07:00 AM VA-TOBACCO QUIT 15 YRS OR MORE [place] [facility] [place] [facility] Apr 24, 2022 07:00 AM VA-TOBACCO FORMER USER [facility] [place] [facility] Apr 24, [...] AM VA-TOBACCO QUIT 15 YRS OR MORE [place] [facility] [place] [facility] Encounter [...] on his changes since brexpiprazole dosage reduction. Blair will call if it persists by day [...] Staff Psychologist Signed: 12/23/2023 07:58 MOISES PADILLA [place] [facility] [place] [facility] Dec 23, 2023 06:52 AM PSYCHOLOGY NOTE: LOCAL TITLE: PSYCHOLOGY NOTE STANDARD TITLE: PSYCHOLOGY NOTE DATE OF NOTE: DEC 23, 2023@06:52 ENTRY DATE: DEC 23, 2023@06:52:10 AUTHOR: MOISES PADILLA EXP COSIGNER: URGENCY: STATUS: COMPLETED PSYCHOLOGY NOTE Has ADDENDA Blair was identified by Visual recognition and patient name. VISIT DURATION 45 minutes DIAGNOSES: Persistent mood disorder, unspecified PTSD, chronic Cognitive Disorder (History of) Cerebral Infarction, Unspecified PRESENTING PROBLEMS: presented on time and resumed treatment and we discussed the prior plan of today possibly being a discharge session for him. shared that he has been trepidatious about [...] Stanford reduced brexpiprazole to 1 mg daily. Blair shared that since then he is noting an increase in depressed mood, lethargy, and amotivation. The PHQ-9 was given and Blair scored an 8 which is mild depression, [...] 3 days since he changed the dosage. also described that he recently experienced a [...] AWAITING SIGNATURE * SALLY STANFORD [facility] [place] [facility]
--- OUTSIDE RECORDS SUMMARY | 2024-06-01 10:57 | XMS_ITS ---
Author Name [facility] [place] Organization [facility] [place] Address [address] [place] [address] Care Team Providers Care Computer Technician Name Role Phone JOSE MANUEL PITT [...] Burgess's Name Patient's Relationship to Policy Burgess [facility] HEALTH PLAN MEDICARE SUPPLEMEN BETY MEDIC ARE SUPPL EMENT A Feb 18, 2022 SUPP1 [id number] [phone] GINA DE LA ROSA PATIENT [facility] MED PREFER/SEN IOR CARE MEDICARE SUPPLEMEN BETY MEDIC ARE SUPPL EMENT A Feb 18, 2021 SUPP1 [id number] GINA DE LA ROSA PATIENT Selected [...] Persistent mood [affective] disorder, unspecified MOISES PADILLA [place] [facility] [facility] Mar 30, 2024 08:02 AM SECONDARY Cerebral infarction, unspecified MOISES PADILLA [place] [facility] [facility] Mar 30, 2024 08:02 AM SECONDARY Post-traumatic stress disorder, chronic MOISES PADILLA [facility] [facility] Mar 30, 2024 08:02 AM SECONDARY Unsp symptoms and signs w cognitive functions and awareness MOISES PADILLA [place] [facility] [facility] Plan of Treatment: Future Appointments (+ 6 months) and Future Tests (+/- 45 days) The Plan of Treatment section includes future care activities for the patient from all [place] treatmentfacilities. This section includes future appointments and future orders which are active, pending or scheduled. Future Appointments This section includes appointments that were scheduled to occur 6 months from the date of the Encounter, up to a maximum of 20 appointments. The data comes from all [place] treatment facilities. Appointment Date/Time Appointment Type Appointme nt Facility Name Apr 01, 2024 09:00 AM AMBULATORY - PSYCHIATRY [facility] [place] [facility] Apr 08, 2024 09:00 AM AMBULATORY - PSYCHIATRY [facility] [place] [place] [facility] Apr 13, 2024 07:00 AM AMBULATORY - PSYCHIATRY [facility] [place] [facility] Apr 15, 2024 09:00 AM AMBULATORY - PSYCHIATRY [facility] [place] [place] [facility] Apr 20, 2024 09:00 AM AMBULATORY - NEUROLOGY [facility] [place] [facility] Apr 22, 2024 09:00 AM AMBULATORY - PSYCHIATRY [facility] [facility] Apr 29, 2024 09:00 AM AMBULATORY - PSYCHIATRY [facility] [facility] May 04, 2024 07:00 AM AMBULATORY - PSYCHIATRY [facility] [place] [facility] May 04, 2024 10:15 AM AMBULATORY - MEDICINE [facility] [place] [facility] May 06, 2024 09:00 AM AMBULATORY - PSYCHIATRY [facility] [place] [facility] May 14, 2024 09:30 [facility] May 20, 2024 09:00 AM AMBULATORY - PSYCHIATRY [place] [facility] [place] [facility] May 21, 2024 02:00 PM AMBULATORY - MEDICINE DE C [facility] [place] [facility] May 25, 2024 07:00 AM AMBULATORY - PSYCHIATRY [place] [facility] [place] [facility] Jun 01, 2024 01:00 PM AMBULATORY - PSYCHIATRY [place] [facility] [facility] Jun 03, 2024 09:00 AM AMBULATORY - PSYCHIATRY [place] [facility] [place] [facility] Jun 09, 2024 07:00 AM AMBULATORY - PSYCHIATRY [place] [facility] [place] [facility] Jun 10, 2024 09:00 AM AMBULATORY - PSYCHIATRY [place] [facility] [facility] June 22, 2024 07:00 AM AMBULATORY - PSYCHIATRY [place] [facility] [facility] July 06, 2024 07:00 AM [facility] Active, Pending, and Scheduled Orders This section includes a listing of several types of active, pending, and scheduled orders, including clinic medications orders, diagnostic test orders, procedure orders and consult orders; where the start date of the order is 45 days before the date of the Encounter or 45 days after the date of theEncounter. The data comes from all [place] treatment facilities. Test Date/Time Test Type Test Details Facility Name Apr 27, 2024 12:00 AM Laboratory - Chemi stry Order OCCULT BLOOD FIT X1 SCREEN (MFP ONLY) STOOL FECES SP [facility] Social History: Smoking Status (Most current) and Tobacco Use (All prior to encounter date) This section includes the most current, and the historical, smoking and tobacco- related health factors from the [place] facility where the Encounter took place. Current Smoking Status This section includes the most current smoking, or tobacco-related health factor, from the [place] facility where the Encounter took place. Date/Time Current Smoking Status Comment Nurys ko Mar 30, 2024 07:00 AM DE-TOBACCO USE FOR TYRONE CIGARETTES [facility] Tobacco Use History This section includes a history of the smoking, or tobacco-related health factors, that were collected on or before the date of the Encounter. The data comes from the [place] facility where the Encounter took place. Date/Time Smoking Status/Tobacco Use Comment F acility Mar 30, 2024 07:00 AM VA-TOBACCO USE FOR TYRONE OTHER TYPE [facility] [place] [facility] Apr 15, 2023 07:00 AM VA-TOBACCO FORMER USER [facility] [place] [facility] Apr 15, 2023 07:00 AM VA-TOBACCO QUIT 15 YRS OR MORE [facility] [place] [facility] Apr 24, 2022 07:00 AM VA-TOBACCO FORMER USER [facility] [place] [facility] Apr 24, 2022 07:00 AM VA-TOBACCO QUIT 15 YRS OR MORE [facility] [place] [facility] Apr 27, 2021 03:00 PM VA-TOBACCO FORMER USER [facility] [facility] Apr 27, 2021 03:00 PM VA-TOBACCO QUIT 15 YRS OR MORE [facility] [place] [facility] Mar 17, 2020 03:00 PM VA-TOBACCO FORMER USER [facility] [facility] Mar 17, 2020 03:00 PM VA-TOBACCO QUIT 15 YRS OR MORE [facility] [place] [facility] Mar 31, 2019 09:04 AM VA-TOBACCO FORMER USER [facility] [place] [facility] Mar 31, 2019 09:04 AM VA-TOBACCO QUIT 15 YRS OR MORE [place] [facility] [place] [facility] Encounter Notes: All associated encounter notes This section contains the clinical notes associated to the Encounter. Date/Time Encounter Note(s) Provider Source Mar 30, 2024 07:11 AM PSYCHOLOGY NOTE: LOCAL TITLE: PSYCHOLOGY NOTE STANDARD TITLE: PSYCHOLOGY NOTE DATE OF NOTE: MAR 30, 2024@07:11 ENTRY DATE: MAR 30, 2024@07:11:46 AUTHOR: MOISES PADILLA COSIGNER: URGENCY: STATUS: COMPLETED [place] was identified by Visual recognition and patient [...] with the news in their own ways. Calryn has reportedly been on two rounds of [...] which has taken a back seat lately. [place] was encouraged to find something that he [...] Staff Psychologist Signed: 03/30/2024 08:02 MOISES PADILLA DE [facility]TRRufino [facility]
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
--- OUTSIDE RECORDS SUMMARY | 2024-06-01 10:57 | XMS_ITS | Encounter Summary ---
Author Name [facility] [place] Organization [facility] [place] Address [address] [place] [address] Care Team Providers Care Lag Screwer Name Role Phone JOSE MANUEL PITT Primary [...] Member ID Insurance Provider's Telephone Number Policy Burgses's Name Patient's Relationship to Policy Burgess [facility] PLAN MEDICARE SUPPLEMEN BETY MEDIC ARE SUPPL EMENT A Feb 18, 2022 SUPP1 [id number] [phone] GINA DE LA ROSA PATIENT [facility] MED PREFER/SEN IOR CARE MEDICARE SUPPLEMEN BETY MEDIC ARE SUPPL EMENT A Feb 18, 2021 SUPP1 [id number] GINA DE LA ROSA PATIENT Selected Encounter This section includes the information on record at [place] for the Encounter. Date/Time Encounter Type Encounter Description Reason Provider Source Mar 18, 2024 09:00 AM STRESS [facility] ICD-10-CM F34.9 Persistent mood [affective] disorder, unspecified MARIALUISA SALCEDO Encounter Template Text not used by [place] Assessments - Encounter Diagnoses This section includes the primary and secondary diagnoses documented for the Encounter. Date/Time Primary/Secondary Diagnosis Diagnosis Name Provider Source Mar 18, 2024 10:37 AM PRIMARY Persistent mood [affective] disorder, unspecified MARIALUISA SALCEDO [place] [facility] [place] [facility] Plan of Treatment: Future Appointments (+ 6 months) and Future Tests (+/- 45 days) The Plan of Treatment section includes future care activities for the patient from all [place] treatmentfacilities. This section includes future appointments and [...] [facility] [place] [facility] Mar 30, 2024 07:00 AM AMBULATORY - PSYCHIATRY [place] [facility] [place] [facility] Mar 30, 2024 01:00 PM AMBULATORY - PSYCHIATRY [facility] [place] [facility] Apr 01, 2024 09:00 AM AMBULATORY - PSYCHIATRY [place] [facility] [place] [facility] Apr 08, 2024 09:00 AM AMBULATORY - PSYCHIATRY [place] [facility] [place] [facility] Apr 13, 2024 07:00 AM AMBULATORY - PSYCHIATRY [place] [facility] [place] [facility] Apr 15, 2024 09:00 AM AMBULATORY - PSYCHIATRY [place] [facility] [place] [facility] Apr 20, 2024 09:00 AM AMBULATORY - NEUROLOGY [facility] [place] [facility] Apr 22, 2024 09:00 AM AMBULATORY - PSYCHIATRY [facility] [place] [facility] Apr 29, 2024 09:00 AM AMBULATORY - PSYCHIATRY [facility] [place] [facility] May 04, 2024 07:00 AM AMBULATORY - PSYCHIATRY [facility] [place] [facility] May 04, 2024 10:15 AM AMBULATORY - MEDICINE [facility] [place] [facility] May 06, 2024 09:00 AM AMBULATORY - PSYCHIATRY [facility] [place] [facility] May 14, 2024 09:30 AM AMBULATORY - MEDICINE [facility] May 20, 2024 09:00 AM AMBULATORY - PSYCHIATRY [facility] [place] [facility] May 21, 2024 02:00 PM AMBULATORY - MEDICINE [place] C [facility] [place] [facility] May 25, 2024 07:00 AM AMBULATORY - PSYCHIATRY [place] [facility] [place] [facility] Jun 01, 2024 01:00 PM AMBULATORY - PSYCHIATRY [place] [facility] [place] [facility] Jun 03, 2024 09:00 AM AMBULATORY - PSYCHIATRY [place] [facility] [place] [facility] Jun 09, 2024 07:00 AM AMBULATORY - [facility]IATRY [place] [facility] Active, Pending, and Scheduled Orders This section includes a listing of several types of active, pending, and scheduled orders, including clinic medications orders, diagnostic test orders, procedure orders and consult orders; where the start date of the order is 45 days before the date of the Encounter or 45 days after the date of theEncounter. The data comes from all [place] treatment facilities. Test Date/Time Test Type Test Details Facility Name Apr 27, 2024 12:00 AM Laboratory - Chemi stry Order OCCULT BLOOD FIT X1 SCREEN (MFP ONLY) STOOL FECES SP [facility] Social History: Smoking Status (Most current) and Tobacco Use (All prior to encounter date) This section includes the most current, and the historical, smoking and tobacco- related health factors from the [place] facility where the Encounter took place. Current Smoking Status This section includes the most current smoking, or tobacco-related health factor, from the [place] facility where the Encounter took place. Date/Time Current Smoking Status Comment Facil ity Apr 15, 2023 07:00 AM VA-TOBACCO FOR[facility]ER [facility] Tobacco Use History This section includes a history of the smoking, or tobacco-related health factors, that were collected on or before the date of the Encounter. The data comes from the [place] facility where the Encounter took place. Date/Time Smoking Status/Tobacco Use Comment F acility Apr 15, 2023 07:00 AM VA-TOBACCO QUIT 15 YRS OR MORE [place] [facility] [place] [facility] Apr 24, 2022 07:00 AM VA-TOBACCO FORMER USER [place] [facility] [place] [facility] Apr 24, [...] 9 AM Number of group members: 20 Wallpaper Inspector: Marialuisa Salcedo [facility] Group began with a introduction [...] theme was on body and breath sensing. [place] engaged with poultry hatchery supervisor and group members appropriately, participating in the meditation and reflection time. did not endorse SI/HI. [place]'s intention was to focus, calm, and let go of stress. DIAGNOSES: Persistent mood disorder, unspecified PTSD, chronic Cognitive Disorder (History of) Cerebral Infarction, Unspecified [facility] Video Connect (VVC) Standard Documentation VVC Clinician Resources Only: E911 (Emergency Call Relay Center): [phone] National Veterans Crisis Line - 988 then press #1. BETH Suicide Coordinator [phone], Ext. [phone]; Back-up Ext. [phone] [place] Police, Sangeeta CAMPOS [phone] Introduction: Visit is being conducted by [place] [employer] Connect. identified with 2 identifiers: [X] Full Name [X] Date of [ ] VA ID Card Emergency Plan: confirmed and/or provided the following information in case of emergency or technology failure. PATIENT PHONE - PHONE NUMBER [CELLULAR] - Is patient phone number correct, if not, enter below: 's phone number: ATJ SAVANNA DE LA ROSA [address], [place], [address] 's present location and address for appointment: his home 's emergency contact name and phone number: E-Cont.: JUVENCIO DE LA ROSA Relation Type: UNRELATED FRIEND/OTHER Relation Note: OTHERS [address] [place] [address] [facility] reported that location is private and safe: Yes Informed Consent: informed of the risks and benefits of Telehealth video care. has the right to refuse video services. If refuses video visit, a [id number] visit will be scheduled. [place] verbalized consent for this video visit: Yes [place] provided consent for any other persons present for visit: Yes If yes, who and relationship to patient:group Secure visit: Visit was locked for security and privacy:Yes /nicole/ REBECA CARABALLO Strap Making Machine Operator Signed: 03/18/2024 10:39 MARIALUISA SALCEDO [place] [facility]
--- OUTSIDE RECORDS SUMMARY | 2024-06-01 10:57 | XMS_ITS | Encounter Summary ---
Author Name [facility] [place] Address [address] [place] [address] Care Team Providers Care Light Technician Name Role Phone JOSE MANUEL PITT [...] Name Patient's Relationship to Policy Burgess [facility] HEALTH PLAN MEDICARE SUPPLEMEN BETY MEDIC ARE SUPPL EMENT A Feb 18, 2022 SUPP1 [id number] [phone] GINA DE LA ROSA PATIENT [facility] MED PREFER/SEN IOR CARE MEDICARE SUPPLEMEN BETY MEDIC ARE SUPPL EMENT A Feb 18, 2021 SUPP1 [id number] GINA DE LA ROSA PATIENT Selected [...] chronic MARIALUISA SALCEDO [place] [facility] [place] [facility] Plan of Treatment: Future [...] AMBULATORY - PSYCHIATRY [facility] [place] [facility] Nov 19, 2023 07:00 AM AMBULATORY - PSYCHIATRY [facility] [place] [facility] Nov 20, 2023 09:00 AM AMBULATORY - PSYCHIATRY [facility] [place] [facility] Nov 27, 2023 09:00 AM AMBULATORY - PSYCHIATRY [facility] [place] [facility] Dec 04, 2023 09:00 AM AMBULATORY - PSYCHIATRY [facility] [place] [facility] Dec 11, 2023 09:00 AM AMBULATORY - PSYCHIATRY [facility] [place] [facility] Dec 16, 2023 09:30 AM AMBULATORY - PSYCHIATRY [facility] [place] [facility] Dec 18, 2023 09:00 AM AMBULATORY - PSYCHIATRY [facility] [place] [facility] Dec 19, 2023 07:30 AM AMBULATORY - MEDICINE [facility] [place] [facility] Dec 23, 2023 07:00 AM AMBULATORY - PSYCHIATRY [place] [facility] [place] [facility] Dec 25, 2023 09:00 AM AMBULATORY - PSYCHIATRY [facility] [place] [facility] Jan 01, 2024 09:00 AM AMBULATORY - PSYCHIATRY [place] [facility] [place] [facility] Jan 08, 2024 09:00 AM AMBULATORY - PSYCHIATRY [facility] [place] [facility] Jan 09, 2024 09:30 AM AMBULATORY - MEDICINE [facility] Jan 14, 2024 07:00 AM AMBULATORY - PSYCHIATRY [place] [facility] [place] [facility] Jan 20, 2024 08:30 AM [facility] [place] [facility] Jan 22, 2024 09:00 AM AMBULATORY - PS[place]IAT[place] [facility] [place] [facility] Jan 27, 2024 01:30 PM AMBULATORY - PS[place]CHIATRY [place] [facility] [place] [facility] Jan 29, 2024 09:00 AM AMBULATORY [facility] [place] [facility] Feb 05, 2024 09:00 AM AMBULATORY - PS[facility]CHIATRY [facility] Active, Pending, and Scheduled Orders This section includes a listing of several types of active, pending, and scheduled orders, including clinic medications orders, diagnostic test orders, procedure orders and consult orders; where the start date of the order is 45 days before the date of the Encounter or 45 days after the date of theEncounter. The data comes from all [place] treatment facilities. Test Date/Time Test Type Test Details Facility Name Oct 25, 2023 02:36 PM Consult Order COMMUNITY CARE-UROLOGY Cons [place] Professor's Choice [facility] Oct 28, 2023 01:47 PM Consult Order COMMUNITY CARE-NEUROLOGY Cons [place] [employer] Professor's Choice [facility] Social History: Smoking Status (Most [...] 15, 2023 07:00 AM [facility]ACCO [facility] Tobacco Use History This section includes a history of the smoking, or tobacco-related health factors, that were collected on or before the date of the Encounter. The data comes from the [place] facility where the Encounter took place. Date/Time Smoking Status/Tobacco Use Comment F acshen Apr 15, 2023 07:00 AM VA-TOBACCO QUIT 15 YRS OR MORE [facility] Apr 24, 2022 07:00 AM VA-TOBACCO [facility] Apr 24, 2022 07:00 AM VA-TOBACCO QUIT 15 YRS OR MORE [place] [facility] [place] [facility] Apr 27, 2021 03:00 PM VA-TOBACCO FORMER USER [place] [facility] [place] [facility] Apr 27, 2021 03:00 PM VA-TOBACCO QUIT 15 YRS OR MORE [place] [facility] [place] [facility] Mar 17, 2020 03:00 PM VA-TOBACCO FORMER USER [place] [facility] [place] [facility] Mar 17, 2020 03:00 PM VA-TOBACCO QUIT 15 YRS OR MORE [place] [facility] [place] [facility] Mar 31, 2019 09:04 AM VA-TOBACCO FORMER USER [place] [facility] [place] [facility] Mar 31, 2019 09:04 AM VA-TOBACCO QUIT 15 YRS OR MORE [facility] [place] [facility] Encounter Notes: All associated [...] 9 AM Number of group members: 12 Director Agency & Strategic Partnerships: Marialuisa Salcedo, [facility] Group began with a introduction that [...] theme was on intention and heartfelt desire. [place] engaged with ict customer support officer and group members appropriately, participating in the meditation and reflection time. did not endorse SI/HI. 's intention was to feel peaceful, calm, and more self-compassionate. DIAGNOSES: Persistent mood disorder, unspecified PTSD, chronic Cognitive Disorder (History of) Cerebral Infarction, Unspecified [place] Video Connect (VVC) Standard Documentation VVC Clinician Resources Only: E911 (Emergency Call Relay Center): [phone] National Veterans Crisis Line - 988 then press #1. CWNehemias Suicide Coordinator [phone], Ext. [phone]; Back-up Ext. [phone] [place] Police, CLEMENTENehemias, Sangeeta [phone] Introduction: Visit is being conducted by [place] [facility] [place] Connect. identified with 2 identifiers: [X] Full Name [X] Date of [ ] VA ID Card Emergency Plan: [place] confirmed and/or provided the following information in case of emergency or technology failure. PATIENT PHONE - PHONE NUMBER [CELLULAR] - Is patient phone number correct, if not, enter below: 's phone number: TAJ DE LA ROSA [address] [place] [address], [place], [address] [place]'s present location and address for appointment: his home 's emergency contact name and phone number: E-Cont.: ESTRELLAJUVENCIO Relation Type: UNRELATED FRIEND/OTHER Relation Note: OTHERS [address] [place] [address] [facility] reported that location is private and safe: Yes Informed Consent: informed of the risks and benefits of Telehealth video care. [place] has the right to refuse video services. If refuses video visit, a [id number] visit will be scheduled. [place] verbalized consent for this video visit: Yes provided consent for any other persons present for visit: Yes If yes, who and relationship to patient:group Secure visit: Visit was locked for security and privacy:Yes /nicole/ REBECA CARABALLO Spindle Carver Signed: 11/06/2023 10:33 MARIALUISA SALCEDO [facility]
--- OUTSIDE RECORDS SUMMARY | 2024-06-01 10:57 | XMS_ITS ---
Author Name [place] Address [address] [place] [address] Care Team Providers Care Parking Lot Chauffeur Name Role Phone JOSE MANUEL PITT Primary [...] Burgess's Name Patient's Relationship to Policy Burgess [facility] HEALTH PLAN MEDICARE SUPPLEMEN BETY MEDIC ARE SUPPL EMENT A Feb 18, 2022 SUPP1 [id number] GINA DE LA ROSA PATIENT [facility] MED PREFER/SEN IOR CARE MEDICARE SUPPLEMEN BETY MEDIC ARE SUPPL EMENT A Feb 18, 2021 SUPP1 [id number] GINA DE LA ROSA PATIENT Selected [...] chronic MARIALUISA SALCEDO [facility] [place] [facility] Plan of Treatment: Future Appointments (+ 6 [...] - PSYCHIATRY [facility] [place] [facility] Dec 18, 2023 09:00 AM AMBULATORY - PSYCHIATRY [facility] [place] [facility] Dec 19, 2023 07:30 AM AMBULATORY - MEDICINE [place] [facility] [facility] Dec 23, 2023 07:00 AM AMBULATORY - PSYCHIATRY [facility] [place] [facility] Dec 25, 2023 09:00 AM AMBULATORY - PSYCHIATRY [facility] [place] [facility] Jan 01, 2024 09:00 AM AMBULATORY - PSYCHIATRY [facility] [place] [facility] Jan 08, 2024 09:00 AM AMBULATORY - PSYCHIATRY [facility] [place] [facility] Jan 09, 2024 09:30 AM AMBULATORY - MEDICINE [facility] Jan 14, 2024 07:00 AM AMBULATORY - PSYCHIATRY [facility] [place] [facility] Jan 20, 2024 08:30 AM AMBULATORY - NEUROLOGY [facility] [place] [facility] Jan 22, 2024 09:00 AM AMBULATORY - PSYCHIATRY [facility] [place] [facility] Jan 27, 2024 01:30 PM AMBULATORY - PSYCHIATRY [facility] [place] [facility] Jan 29, 2024 09:00 AM AMBULATORY - PSYCHIATRY [facility] [place] [facility] Feb 05, 2024 09:00 AM AMBULATORY - PSYCHIATRY [facility] [place] [facility] Feb 10, 2024 07:00 AM AMBULATORY - PSYCHIATRY [facility] [place] [facility] Feb 24, 2024 07:00 AM AMBULATORY - [facility] Mar 04, 2024 09:00 AM AMBULATORY - [facility] Mar 11, 2024 09:00 AM AMBULATORY - [facility] Mar 18, 2024 09:00 AM [facility] Mar 25, 2024 09:00 AM AMBUL[facility]ORY [facility] Active, Pending, and Scheduled Orders [...] 01:47 PM Consult Order COMMUNITY CARE-NEUROLOGY Cons Optometrist Owner's Choice [facility] Lab Results: +/- 30 days of [...] Type Comment Dec 19, 2023 07:55 AM [facility] FOLATE (WROX) SERUM Specimen Type: SERUM No comment entered. Ordering Provider: SALLY PIERRE Report Released Date/Time: Oct 28, 2023 09:59 AM Reporting Lab: [facility] [address] [facility] [address] Performing Lab: [facility] [address] [facility] [address] FOLATE (WROX) 9.07 ng/mL >5.2 Dec 19, 2023 07:55 AM [facility] TSH SERUM Specimen Type: SERUM No comment entered. Ordering Provider: SALLY PIERRE Report Released Date/Time: Oct 28, 2023 09:59 AM Reporting Lab: [facility] [address] [facility] [address] Performing Lab: [address] [address] TSH 1.09 u[IU]/mL 0.35-5.00 Dec 19, 2023 07:55 AM [facility] VITAMIN B12 SERUM Specimen Type: SERUM No comment entered. Ordering Provider: SALLY PIERRE Report Released Date/Time: Oct 28, 2023 09:59 AM Reporting Lab: [facility] [address] [facility] [address] Performing Lab: [address] [address] VITAMIN B12 297 pg/mL 200-900 Dec 19, 2023 07:55 AM [facility] VITAMIN D (25-OH) SERUM Specimen Type: SERUM No comment entered. Ordering Provider: SALLY PIERRE Report Released Date/Time: Oct 28, 2023 09:59 AM Reporting Lab: [address] [address] Performing Lab: [address] [address] VITAMIN D (25-OH) 38 ng/mL 20-50 Dec 19, 2023 07:55 AM [facility] HEMOGLOBIN A1C PANEL BLOOD Specimen Type: [...] Dec 16, 2023 09:50 AM Reporting Lab: [address] [address] Performing Lab: [facility] [address] [address] HEMOGLOBIN A1C 5.5 4.0-5.6 Dec 19, 2023 07:55 AM [facility] LIPID PANEL FASTING SERUM Specimen Type: SERU M No comment entered. Ordering Provider: SALLY PIERRE Report Released Date/Time: Dec 16, 2023 09:50 AM Reporting Lab: [address] [address] Performing Lab: [address] [address] CHOLESTEROL 113 mg/dL TRIGLYCERIDE 85 mg/dL 0-150 LDL calculated 50 mg/dL 0-129 CHOL/HDL 2.5 HDL CHOLESTEROL 46 mg/dL 40-60 Dec 19, 2023 07:55 AM [facility] BASIC METABOLIC PANEL (fasting) SERUM Specime n Type: SERUM No comment entered. Ordering Provider: SALLY PIERRE Report Released Date/Time: Dec 16, 2023 09:50 AM Reporting Lab: [address] [address] Performing Lab: [address] [address] UREA NITROGEN 18 mg/dL 7-25 GLUCOSE 117 [...] 15, 2023 07:00 AM VA-TOBACCO FORMER USER [facility] Tobacco Use History This section includes a history of the smoking, or tobacco-related health factors, that were collected on or before the date of the Encounter. The data comes from the [place] facility where the Encounter took place. Date/Time Smoking Status/Tobacco Use Comment F acility Apr 15, 2023 07:00 AM VA-TOBACCO QUIT 15 YRS OR MORE [facility] [place] [facility] Apr 24, 2022 07:00 AM VA-TOBACCO FORMER USER [facility] [place] [facility] Apr 24, 2022 07:00 AM VA-TOBACCO QUIT 15 YRS OR MORE [facility] [facility] Apr 27, 2021 03:00 PM VA-TOBACCO FORMER USER [facility] [place] [facility] Apr 27, 2021 03:00 PM VA-TOBACCO QUIT 15 YRS OR MORE [facility] [place] [facility] Mar 17, 2020 03:00 PM VA-TOBACCO FORMER USER [facility] [place] [facility] Mar 17, 2020 03:00 PM VA-TOBACCO QUIT 15 YRS OR MORE [facility] [facility] Mar 31, 2019 09:04 AM VA-TOBACCO FORMER USER [facility] [place] [facility] Mar 31, 2019 09:04 AM VA-TOBACCO QUIT 15 YRS OR MORE [place] [facility] [place] [facility] Encounter Notes: All associated encounter notes This section contains the clinical notes associated to the Encounter. Date/Time Encounter Note(s) Provider Source Dec 11, 2023 10:21 AM SOCIAL WORK GROUP COUNSELING NOTE: LOCAL TITLE: SOCIAL WORK GROUP NOTE STANDARD TITLE: SOCIAL WORK GROUP COUNSELING NOTE DATE OF NOTE: DEC 11, 2023@10:21 ENTRY DATE: DEC 11, 2023@10:21:17 AUTHOR: MARIALUISA SALCEDO EXP COSIGNER: URGENCY: STATUS: COMPLETED [employer] Group Date: 12/11/23 Time: 9 am Number of group members: 11 Credit Collection Associate: Marialuisa Salcedo [facility] Group began with a introduction [...] thoughts. Today's theme was on pure awareness. [place] engaged with burial agent and group members appropriately, participating in the meditation and reflection time. did not endorse SI/HI. 's stated intention was to bring ease and well being physically and emotionally. DIAGNOSES: Persistent mood disorder, unspecified PTSD, chronic Cognitive Disorder (History of) Cerebral Infarction, Unspecified [place] [employer] Connect (VVC) Standard Documentation VV Clinician Resources Only: E911 (Emergency Call Relay Center): [phone] National Veterans Crisis Line - 988 then press #1. [place] Suicide Coordinator [phone], Ext. [phone]; Back-up Ext. [phone] [place] Police, Sangeeta CAMPOS [phone] Introduction: Visit is being conducted by [employer]. [place] identified with 2 identifiers: [X] Full Name [X] Date of [ ] [place] ID Card Emergency Plan: confirmed and/or provided the following information in case of emergency or technology failure. PATIENT PHONE - PHONE NUMBER [CELLULAR] - Is patient phone number correct, if not, enter below: 's phone number: TAJ DE LA ROSA [address], [place], [address] 's present location and address for appointment: his home [place]'s emergency contact name and phone number: E-Cont.: JUVENCIO DE LA ROSA Relation Type: UNRELATED FRIEND/OTHER Relation Note: OTHERS [address] [place] [address] [facility] [place] reported that location is private and safe: Yes Informed Consent: informed of the risks and benefits of Telehealth video care. has the right to refuse video services. If refuses video visit, a [id number]-[id number] visit will be scheduled. [place] verbalized consent for this video visit: Yes provided consent for any other persons present for visit: Yes If yes, who and relationship to patient:group Secure visit: Visit was locked for security and privacy:Yes /nicole/ REBECA CARABALLO Utility Gelatin Maker Signed: 12/11/2023 10:32 MARIALUISA SALCEDO [facility]
--- OUTSIDE RECORDS SUMMARY | 2024-06-01 10:57 | XMS_ITS | Encounter Summary ---
Author Name [place] Address [address] [place] [address] Care Team Providers Care Home Health Nurse Name Role Phone JOSE MANUEL PITT [...] Name Patient's Relationship to Policy Burgess [facility] HEALTH PLAN MEDICARE SUPPLEMEN BETY MEDIC ARE SUPPL EMENT A Feb 18, 2022 SUPP1 [id number] [phone] GINA DE LA ROSA PATIENT [facility] MED PREFER/SEN IOR CARE MEDICARE SUPPLEMEN BETY MEDIC ARE SUPPL EMENT A Feb 18, 2021 SUPP1 [id number] [phone] GINA DE LA ROSA PATIENT Selected Encounter This section includes the information on record at [place] for the Encounter. Date/Time Encounter Type Encounter Description Reason Provider Source Oct 02, 2023 09:00 AM GROUP PSYCHOTHERAPY [facility] ICD-10-CM F43.12 Post-traumati c stress disorder, chronic MARIALUISA SALCEDO Encounter Template Text not used by [place] Assessments - Encounter Diagnoses This section includes the primary and secondary diagnoses documented for the Encounter. Date/Time Primary/Secondary Diagnosis Diagnosis Name Provider Source Oct 02, 2023 10:32 AM PRIMARY Post-traumatic stress disorder, chronic MARIALUISA SALCEDO [place] [facility] [place] [facility] Plan of Treatment: Future Appointments (+ [...] AMBULATORY - PSYCHIATRY [facility] [place] [facility] Oct 16, 2023 09:00 AM AMBULATORY - PSYCHIATRY [facility] [place] [facility] Oct 23, 2023 09:00 AM AMBULATORY - PSYCHIATRY [facility] [place] [facility] Oct 28, 2023 07:00 AM AMBULATORY - PSYCHIATRY [facility] [place] [facility] Oct 28, 2023 08:00 AM AMBULATORY - NEUROLOGY [facility] [place] [facility] Oct 28, 2023 09:30 AM AMBULATORY - PSYCHIATRY [facility] [place] [facility] Oct 30, 2023 09:00 AM AMBULATORY - PSYCHIATRY [facility] [place] [facility] Nov 06, 2023 09:00 AM AMBULATORY - PSYCHIATRY [facility] [place] [facility] Nov 13, 2023 09:00 AM AMBULATORY - PSYCHIATRY [facility] [place] [facility] Nov 19, 2023 07:00 AM AMBULATORY - PSYCHIATRY [facility] [place] [facility] Nov 20, 2023 09:00 AM AMBULATORY - PSYCHIATRY [facility] [place] [facility] Nov 27, 2023 09:00 AM AMBULATORY - PSYCHIATRY [facility] [facility] Dec 04, 2023 09:00 AM AMBULATORY - PSYCHIATRY [facility] [facility] Dec 11, 2023 09:00 AM AMBULATORY - PSYCHIATRY [facility] [facility] Dec 16, 2023 09:30 AM AMBULATORY - PSYCHIATRY [facility] [facility] Dec 18, 2023 09:00 AM AMBULATORY - PSYCHIATRY [place] [facility] [place] [facility] Dec 19, 2023 07:30 AM AMBULATORY - MEDICINE [facility] [facility] Dec 23, 2023 07:00 AM AMBULATORY - PSYCHIATRY [place] [facility] [place] [facility] Dec 25, 2023 09:00 AM AMBULATORY - PSYCHIATRY [place] [facility] [place] [facility] Jan 01, 2024 09:00 AM AMBULATORY - PSYCHIATRY [place] [facility] [place] [facility] Active, Pending, and Scheduled Orders This section includes a listing of several types of active, pending, and scheduled orders, including clinic medications orders, diagnostic test orders, procedure orders and consult orders; where the start date of the order is 45 days before the date of the Encounter or 45 days after the date of theEncounter. The data comes from all [place] treatment facilities. Test Date/Time Test Type Test Details Facility Name Oct 25, 2023 02:36 PM Consult Order COMMUNITY CARE-UROLOGY [facility] [employer] Driver's Choice [place] [facility] [place] [facility] Oct 28, 2023 01:47 PM Consult Order COMMUNITY CARE-NEUROLOGY [facility] [employer] [facility] [place] [facility] Social History: Smoking Status (Most current) [...] 15, 2023 07:00 AM VA-TOBACCO FOR[facility] Tobacco Use History This section includes a history of the smoking, or tobacco-related health factors, that were collected on or before the date of the Encounter. The data comes from the [place] facility where the Encounter took place. Date/Time Smoking Status/Tobacco Use Comment F acility Apr 15, 2023 07:00 AM VA-TOBACCO QUIT 15 YRS OR MORE [place] [facility] Apr 24, 2022 07:00 AM VA-TOBACCO FORMER USER IN [place] [facility] Apr 24, 2022 07:00 AM VA-TOBACCO QUIT 15 YRS OR MORE [facility] [place] [facility] Apr 27, 2021 03:00 PM VA-TOBACCO FORMER USER [facility] [place] [facility] Apr 27, 2021 03:00 PM VA-TOBACCO QUIT 15 YRS OR MORE [facility] [place] [facility] Mar 17, 2020 03:00 PM VA-TOBACCO FORMER USER [facility] [place] [facility] Mar 17, 2020 03:00 PM VA-TOBACCO QUIT 15 YRS OR MORE [facility] [place] [facility] Mar 31, 2019 09:04 AM VA-TOBACCO FORMER USER [facility] [place] [facility] Mar 31, 2019 09:04 AM VA-TOBACCO QUIT 15 YRS OR MORE [facility] [place] [facility] Encounter Notes: All associated encounter notes [...] 9 AM Number of group members: 10 Maturity Checker: Marialuisa Salcedo, [facility] Group began with a introduction that [...] acceptance-based skills with difficult emotions and thoughts. [place] shared comments, observations, and questions at the conclusion of the meditation. Today's theme was on beliefs and their opposites. [place] engaged with clinic administrator and group members appropriately, participating in the meditation and reflection time. [place] did not endorse SI/HI. [place]'s intention was improve mood and also find sense of peace. DIAGNOSES: Persistent mood disorder, unspecified PTSD, chronic Cognitive Disorder (History of) Cerebral Infarction, Unspecified [place] Video Connect (VVC) Standard Documentation VVC Clinician Resources Only: E911 (Emergency Call Relay Center): [phone] National Veterans Crisis Line - 988 then press #1. [facility] Suicide Coordinator [phone], Ext. [phone]; Back-up Ext. [phone] [place] Police, BETH, [place] [phone] Introduction: Visit is being conducted by [place] [employer]. identified with 2 identifiers: [X] Full Name [X] Date of [ ] [place] ID Card Emergency Plan: confirmed and/or provided the following information in case of emergency or technology failure. PATIENT PHONE - PHONE NUMBER [CELLULAR] - Is patient phone number correct, if not, enter below: 's phone number: TAJ DE LA ROSA [address], [place], [address] 's present location and address for appointment: his home 's emergency contact name and phone number: E-Cont.: JUVENCIO DE LA ROSA Relation Type: UNRELATED FRIEND/OTHER Relation Note: OTHERS [address] [place] [address] [facility] [place] reported that location is private and safe: Yes Informed Consent: informed of the risks and benefits of Telehealth video care. [place] has the right to refuse video services. If refuses video visit, a [id number] visit will be scheduled. [place] verbalized consent for this video visit: Yes [place] provided consent for any other persons present for visit: Yes If yes, who and relationship to patient:group Secure visit: Visit was locked for security and privacy:Yes /nicole/ REBECA CARABALLO Metal Solderer Signed: 10/02/2023 10:33 MARIALUISA SALCEDO IN [facility]
--- OUTSIDE RECORDS SUMMARY | 2024-06-01 10:57 | XMS_ITS ---
Author Name [facility] [place] Organization [place] Address [address] [place] [address] Care Team Providers Care Evidence Specialist Name Role Phone JOSE MANUEL PITT [...] SUPPL EMENT A Feb 18, 2022 SUPP1 [id number] GINA DE LA ROSA PATIENT [facility] MED PREFER/SEN IOR CARE MEDICARE SUPPLEMEN BETY MEDIC ARE SUPPL EMENT A Feb 18, 2021 SUPP1 [id number] GINA DE LA ROSA PATIENT Selected Encounter This section includes the information on record at NH for the Encounter. Date/Time Encounter Type Encounter Description Reason Provider Source May 06, 2024 09:00 AM GROUP PSYCHOTHERAPY [facility] ICD-10-CM F43.12 Post-traumati c stress disorder, chronic MARIALUISA SALCEDO Encounter Template Text not used by [place] Assessments - Encounter Diagnoses This section includes the primary and secondary diagnoses documented for the Encounter. Date/Time Primary/Secondary Diagnosis Diagnosis Name Provider Source May 06, 2024 10:22 AM PRIMARY Post-traumatic stress disorder, chronic MARIALUISA SALCEDO [place] [facility] [place] [facility] Plan of Treatment: Future Appointments (+ 6 months) and Future Tests (+/- 45 days) The Plan of Treatment section includes future care activities for the patient [facility] all [facility] This section includes future appointments [...] AMBULATORY - PSYCHIATRY [place] [facility] [place] [facility] May 21, 2024 02:00 PM AMBULATORY - MEDICINE NH [facility] [place] [facility] May 25, 2024 07:00 AM AMBULATORY - PSYCHIATRY [place] [facility] [place] [facility] Jun 01, 2024 01:00 PM AMBULATORY - PSYCHIATRY [place] [facility] [place] [facility] Jun 03, 2024 09:00 AM AMBULATORY - PSYCHIATRY [place] [facility] [place] [facility] Jun 09, 2024 07:00 AM AMBULATORY - PSYCHIATRY [place] [facility] [place] [facility] Jun 10, 2024 09:00 AM AMBULATORY - PSYCHIATRY [place] [facility] [place] [facility] June 22, 2024 07:00 AM AMBULATORY - PSYCHIATRY [place] [facility] [place] [facility] July 06, 2024 07:00 AM AMBULATORY - PSYCHIATRY [place] [facility] [place] [facility] Jul 20, 2024 09:00 AM AMBULATORY - NEUROLOGY [place] [facility] [place] [facility] Aug 03, 2024 08:30 AM AMBULATORY - MEDICINE NH [facility] [place] [facility] Sep 17, 2024 09:30 AM AMBULATORY - MEDICINE [facility] Active, Pending, and Scheduled Orders This [...] STOOL FECES SP [place] [facility] [place] [facility] Social History: Smoking Status (Most current) and [...] 07:00 AM VA-TOBACCO USE FOR TYRONE CIGARETTES [place] [facility] [place] [facility] Tobacco Use History This section includes a history of the smoking, or tobacco-related health factors, that were collected on or before the date of the Encounter. The data comes from the [place] facility where the Encounter took place. Date/Time Smoking Status/Tobacco Use Comment F acility Mar 30, 2024 07:00 AM VA-TOBACCO USE FOR TYRONE OTHER TYPE [facility] [place] [facility] Apr 15, 2023 07:00 AM VA-TOBACCO FORMER USER [facility] [place] [facility] Apr 15, 2023 07:00 AM VA-TOBACCO QUIT 15 YRS OR MORE [facility] [place] [facility] Apr 24, 2022 07:00 AM VA-TOBACCO FORMER USER [facility] [place] [facility] Apr 24, 2022 07:00 AM VA-TOBACCO QUIT 15 YRS OR MORE [facility] [place] [facility] Apr 27, 2021 03:00 PM VA-TOBACCO FORMER USER [facility] [place] [facility] Apr 27, 2021 03:00 PM VA-TOBACCO QUIT 15 YRS OR MORE [facility] [place] [facility] Mar 17, 2020 03:00 PM VA-TOBACCO FORMER USER [facility] [place] [facility] Mar 17, 2020 03:00 PM VA-TOBACCO QUIT 15 YRS OR MORE [facility] [place] [facility] Mar 31, 2019 09:04 AM VA-TOBACCO FORMER USER [place] [facility] [place] [facility] Mar 31, 2019 09:04 AM VA-TOBACCO QUIT 15 YRS OR MORE [place] [facility] [place] [facility] Encounter Notes: All associated encounter notes This section contains the clinical notes associated to the Encounter. Date/Time Encounter Note(s) Provider Source May 06, 2024 10:13 AM SOCIAL WORK GROUP COUNSELING NOTE: LOCAL TITLE: SOCIAL WORK GROUP NOTE STANDARD TITLE: SOCIAL WORK GROUP COUNSELING NOTE DATE OF NOTE: MAY 06, 2024@10:13 ENTRY DATE: MAY 06, 2024@10:13:40 AUTHOR: MARIALUISA SALCEDO EXP COSIGNER: URGENCY: STATUS: COMPLETED iRest Group Date: 05/06/24 Time: 9 AM Number of group members: 11 Marine Geologist: Marialuisa Salcedo LOOP CUTTER Group began with a introduction that iRest [...] and thoughts. Today's theme was on inner resource and heartfelt desire. Bantry engaged with digital music instructor and group members appropriately, participating in the meditation and reflection time. Bantry did not endorse SI/HI. Bantry's intention was to feel calm and centered. DIAGNOSES: Persistent mood disorder, unspecified PTSD, chronic Cognitive Disorder (History of) Cerebral Infarction, Unspecified [place] [facility]ar Connect (VVC) Standard Documentation VV Clinician Resources Only: E911 (Emergency Call Relay Center): [phone] National Veterans Crisis Line - 988 then press #1. BETH Suicide Coordinator [phone], Ext. [phone]; Back-up Ext. [phone] BETH Avendaño [place] [phone] Introduction: Visit is being conducted by [employer] [facility]. identified with 2 identifiers: [X] Full Name [X] Date of [ ] VA ID Card Emergency Plan: Bantry confirmed and/or provided the following information in case of emergency or technology failure. PATIENT PHONE - PHONE NUMBER [CELLULAR] - Is patient phone number correct, if not, enter below: Bantry's phone number: TAJ DE LA ROSA [address], [place], [address] Bantry's present location and address for appointment: his home Bantry's emergency contact name and phone number: E-Cont.: ESTRELLAJUVENCIO Relation Type: UNRELATED FRIEND/OTHER Relation Note: OTHERS [address] [place] [address] [facility] reported that location is private and safe: Yes Informed Consent: [place] informed of the risks and benefits of Telehealth video care. has the right to refuse video services. If refuses video visit, a haaw-qd-mlxk visit will be scheduled. verbalized consent for this video visit: Yes provided consent for any other persons present for visit: Yes If yes, who and relationship to patient:group Secure visit: Visit was locked for security and privacy:Yes /nicole/ REBECA CARABALLO Cracker Sprayer Signed: 05/06/2024 10:22 MARIALUISA SALCEDO [facility]
--- OUTSIDE RECORDS SUMMARY | 2024-06-01 10:57 | XMS_ITS | Encounter Summary ---
Author Name [place] Address [address] [place] [address] Care Team Providers Care Certified First Assistant Name Role Phone JOSE MANUEL PITT [...] SUPPL EMENT A Feb 18, 2022 SUPP1 [id number] GINA DE LA ROSA PATIENT [facility] PREFER/SEN IOR CARE MEDICARE SUPPLEMEN BETY MEDIC ARE SUPPL EMENT A Feb 18, 2021 SUPP1 [id number] [phone] GINA DE LA ROSA PATIENT Selected Encounter This section includes the information on record at [place] for the Encounter. Date/Time Encounter Type Encounter Description Reason Provider Source Jul 25, 2023 01:30 PM OFFICE O/P EST HI 40 MIN [facility] - IND ICD-10-CM F34.9 Persistent mood [affective] disorder, unspecified [employer] [facility] Encounter Template Text not used by [place] Assessments - Encounter Diagnoses This section includes the primary and secondary diagnoses documented for the Encounter. Date/Time Primary/Secondary Diagnosis Diagnosis Name Provider Source Jul 26, 2023 05:20 PM PRIMARY Persistent mood [affective] disorder, unspecified LACHELLE PIERREGUY Chan [facility] [place] [facility] Jul 26, 2023 05:20 PM SECONDARY Post-traumatic stress disorder, chronic LACHELLE PIERREGUY Chan [place] [facility] [place] [facility] Plan of Treatment: Future Appointments (+ 6 months) and Future Tests (+/- 45 days) The Plan of Treatment section includes future care activities for the patient from all [place] [facility] This section includes future appointments and future [...] AMBULATORY - PSYCHIATRY [facility] [place] [facility] Jul 29, 2023 08:30 AM AMBULATORY - MEDICINE [facility] [place] [facility] Aug 21, 2023 10:00 AM AMBULATORY - MEDICINE [facility] Sep 02, 2023 07:00 AM AMBULATORY - PSYCHIATRY [facility] [place] [facility] Sep 09, 2023 05:00 PM AMBULATORY - PSYCHIATRY [facility] [place] [facility] Sep 11, 2023 09:00 AM AMBULATORY - PSYCHIATRY [facility] [place] [facility] Sep 19, 2023 01:30 PM AMBULATORY - PSYCHIATRY [facility] [place] [facility] Sep 25, 2023 09:00 AM AMBULATORY - PSYCHIATRY [facility] [place] [facility] Sep 30, 2023 07:00 AM AMBULATORY - PSYCHIATRY [facility] [place] [facility] Oct 02, 2023 09:00 AM AMBULATORY - PSYCHIATRY [facility] [place] [facility] Oct 09, 2023 09:00 AM AMBULATORY - PSYCHIATRY [facility] [place] [facility] Oct 16, 2023 09:00 AM AMBULATORY - PSYCHIATRY [facility] [place] [facility] Oct 23, 2023 09:00 AM AMBULATORY - PSYCHIATRY [facility] [place] [facility] Oct 28, 2023 07:00 AM AMBULATORY - PSYCHIATRY [facility] [place] [facility] Oct 28, 2023 08:00 AM AMBULATORY - NEUROLOGY [facility] [place] [facility] Oct 28, 2023 09:30 AM AMBULATORY - PSYCHIATRY [facility] [place] [facility] Oct 30, 2023 09:00 AM AMBULATORY - PSYCHIATRY [facility] [place] [facility] Nov 06, 2023 09:00 AM AMBULATORY - PSYCHIATRY [facility] [place] [facility] Nov 13, 2023 09:00 AM AMBULATORY - PSYCHIATRY [facility] [place] [facility] Nov 19, 2023 07:00 AM AMBULATORY - PSYCHIATRY [facility] [place] [facility] Social History: Smoking Status (Most [...] VA-TOBACCO FORMER USER [place] [facility] [place] [facility] Tobacco Use History This section includes a history of the smoking, or tobacco-related health factors, that were collected on or before the date of the Encounter. The data comes from the [place] facility where the Encounter took place. Date/Time Smoking Status/Tobacco Use Comment F acility Apr 15, 2023 07:00 AM VA-TOBACCO QUIT 15 YRS OR MORE [facility] [place] [facility] Apr 24, 2022 07:00 AM VA-TOBACCO FORMER USER VA [facility] [place] [facility] Apr 24, 2022 07:00 AM VA-TOBACCO QUIT 15 YRS OR MORE [facility] [place] [facility] Apr 27, 2021 03:00 PM VA-TOBACCO FORMER USER VA [facility] [place] [facility] Apr 27, 2021 03:00 PM VA-TOBACCO QUIT 15 YRS OR MORE [facility] [place] [facility] Mar 17, 2020 03:00 PM VA-TOBACCO FORMER USER [facility] [place] [facility] Mar 17, 2020 03:00 PM VA-TOBACCO QUIT 15 YRS OR MORE [facility] [place] [facility] Mar 31, 2019 09:04 AM VA-TOBACCO FORMER USER [facility] [place] [facility] Mar 31, 2019 09:04 AM VA-TOBACCO QUIT 15 YRS OR MORE [facility] Encounter Notes: All associated encounter [...] I69.959 10/07/2020 MIGUEL CARRILLO Polyneuropathy G62.9 03/23/2020 MGIUEL CARRILLO Posttraumatic stress disorder F43.1 08/07/2019 CATRACHITA [...] suicide attempt in 2005 and hospitalization at [facility] (overdose on morphine), also with an [...] dose of trazodone, 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
--- OUTSIDE RECORDS SUMMARY | 2024-06-01 10:57 | XMS_ITS | Encounter Summary ---
Author Name Department of Veter[facility] [place] Affairs [place] Organization Department of Veter[place] Affairs [place] Address [address] [place] [address] Care Team Providers Care Disaster Recovery Coordinator Name Role Phone JOSE MANUEL PITT [...] SUPPL EMENT A Feb 18, 2022 SUPP1 [id number] [phone] GINA DE LA ROSA PATIENT [facility] MED PREFER/SEN IOR CARE MEDICARE SUPPLEMEN BETY MEDIC ARE SUPPL EMENT A Feb 18, 2021 SUPP1 [id number] GINA DE LA ROSA PATIENT Selected [...] chronic MARIALUISA SALCEDO [place] [facility] [place] [facility] Plan of Treatment: Future Appointments (+ [...] - PSYCHIATRY [facility] [place] [facility] Dec 16, 2023 09:30 AM AMBULATORY - PSYCHIATRY [facility] [place] [facility] Dec 18, 2023 09:00 AM AMBULATORY - PSYCHIATRY [facility] [place] [facility] Dec 19, 2023 07:30 AM AMBULATORY - MEDICINE [facility] C [facility] [place] [facility] Dec 23, 2023 07:00 AM AMBULATORY - PSYCHIATRY [facility] [place] [facility] Dec 25, 2023 09:00 AM AMBULATORY - PSYCHIATRY [facility] [place] [facility] Jan 01, 2024 09:00 AM AMBULATORY - PSYCHIATRY [facility] [place] [facility] Jan 08, 2024 09:00 AM AMBULATORY - PSYCHIATRY [facility] [place] [facility] Jan 09, 2024 09:30 AM AMBULATORY - MEDICINE [facility] Jan 14, 2024 07:00 AM AMBULATORY - PSYCHIATRY [facility] [place] [facility] Jan 20, 2024 08:30 AM AMBULATORY - NEUROLOGY [facility] [place] [facility] Jan 22, 2024 09:00 AM AMBULATORY - PSYCHIATRY [facility] [place] [facility] Jan 27, 2024 01:30 PM AMBULATORY - PSYCHIATRY [facility] [place] [facility] Jan 29, 2024 09:00 AM AMBULATORY - PSYCHIATRY [facility] [place] [facility] Feb 05, 2024 09:00 AM AMBULATORY - PSYCHIATRY [facility] [place] [facility] Feb 10, 2024 07:00 AM [facility] [place] [facility] Feb 24, 2024 07:00 AM AMBULAT[facility] [place] [facility] Mar 04, 2024 09:00 AM AM[facility]ULAT[facility] [place] [facility] Mar 11, 2024 09:00 AM AM[facility]ULAT[facility] Mar 18, 2024 09:00 AM AMBULAT[facility] Active, Pending, and Scheduled Orders This section [...] 02:36 PM Consult Order COMM[facility]ITY [facility]-UROLOGY Cons Head Operator's Choice [facility] Oct 28, 2023 01:47 PM Consult Order [facility] Cons Head Operator's Choice [facility] Lab Results: +/- 30 days of the encounter This section includes the Chemistry and Hematology Lab Results on record with MD for the patient. Radiology Reports and Pathology Reports are provided separately, in subsequent sections. Lab Results This section contains the Chemistry/Hematology Results that were resulted 30 days before or 30 daysafter the date of the Encounter. Date/Time Source Result Type Result - Unit Interpretation Reference Range Specimen Type Comment Dec 19, 2023 07:55 AM [facility] [place] FOLATE (WROX) SERUM Specimen Type: SERUM No comment entered. Ordering Provider: SALLY PIERRE Report Released Date/Time: Oct 28, 2023 09:59 AM Reporting Lab: [facility] [place] [address] [facility] [address] Performing Lab: [facility] [place] [address] [facility] [address] FOLATE (WROX) 9.07 ng/mL >5.2 Dec 19, 2023 07:55 AM [facility] [place] TSH SERUM Specimen Type: SERUM No comment entered. Ordering Provider: SALLY PIERRE Report Released Date/Time: Oct 28, 2023 09:59 AM Reporting Lab: [facility] [place] [address] [facility] [address] Performing Lab: [facility] [address] [address] TSH 1.09 u[IU]/mL 0.35-5.00 Dec 19, 2023 07:55 AM [facility] [place] VITAMIN D (25-OH) SERUM Specimen Type: SERUM No comment entered. Ordering Provider: SALLY PIERRE Report Released Date/Time: Oct 28, 2023 09:59 AM Reporting Lab: [address] [address] Performing Lab: [address] [address] VITAMIN D (25-OH) 38 ng/mL 20-50 Dec 19, 2023 07:55 AM [facility] [place] VITAMIN B12 SERUM Specimen Type: SERUM No comment entered. Ordering Provider: SALLY PIERRE Report Released Date/Time: Oct 28, 2023 09:59 AM Reporting Lab: [address] [address] Performing Lab: [address] [address] VITAMIN B12 297 pg/mL 200-900 Dec 19, 2023 07:55 AM [facility] [place] LIPID PANEL FASTING SERUM Specimen Type: SERU M No comment entered. Ordering Provider: SALLY PIERRE Report Released Date/Time: Dec 16, 2023 09:50 AM Reporting Lab: [address] [address] Performing Lab: [address] [address] CHOLESTEROL 113 mg/dL TRIGLYCERIDE 85 mg/dL 0-150 LDL calculated 50 mg/dL 0-129 CHOL/HDL 2.5 HDL CHOLESTEROL 46 mg/dL 40-60 Dec 19, 2023 07:55 AM [facility] [place] HEMOGLOBIN A1C PANEL BLOOD Specimen Type: BLO [...] Dec 16, 2023 09:50 AM Reporting Lab: [address] [address] Performing Lab: [address] [address] HEMOGLOBIN A1C 5.5 4.0-5.6 Dec 19, 2023 07:55 AM [facility] [place] BASIC METABOLIC PANEL (fasting) SERUM Specime n Type: SERUM No comment entered. Ordering Provider: SALLY PIERRE Report Released Date/Time: Dec 16, 2023 09:50 AM Reporting Lab: [address] [address] Performing Lab: [address] [address] UREA NITROGEN 18 mg/dL 7-25 GLUCOSE 117 [...] Facil stefani Apr 15, 2023 07:00 AM VA-TOBACCO FORMER USER [place] [facility] [place] [facility] Tobacco Use History This section includes a history of the smoking, or tobacco-related health factors, that were collected on or before the date of the Encounter. The data comes from the [place] facility where the Encounter took place. Date/Time Smoking Status/Tobacco Use Comment F acility Apr 15, 2023 07:00 AM VA-TOBACCO QUIT 15 YRS OR MORE [place] [facility] [place] [facility] Apr 24, 2022 07:00 AM VA-TOBACCO FORMER USER [place] [facility] [place] [facility] Apr 24, 2022 07:00 AM VA-TOBACCO QUIT 15 YRS OR MORE [place] [facility] [facility] Apr 27, 2021 03:00 PM VA-TOBACCO FORMER USER [place] [facility] [place] [facility] Apr 27, 2021 03:00 PM VA-TOBACCO QUIT 15 YRS OR MORE [place] [facility] [place] [facility] Mar 17, 2020 03:00 PM VA-TOBACCO FORMER USER [place] [facility] [place] [facility] Mar 17, 2020 03:00 PM VA-TOBACCO QUIT 15 YRS OR MORE [place] [facility] [facility] Mar 31, 2019 09:04 AM VA-TOBACCO FORMER USER [place] [facility] [facility] Mar 31, 2019 09:04 AM VA-TOBACCO QUIT 15 YRS OR MORE [place] [facility] [place] [facility] Encounter Notes: All associated encounter notes [...] 9 AM Number of group members: 10 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 Today's theme was on milind. [place] engaged with hand edge bander and group members appropriately, participating in the meditation and reflection time. [place] did not endorse SI/HI. 's intention was to experience milind admist all circumstances. DIAGNOSES: Persistent mood disorder, unspecified PTSD, chronic Cognitive Disorder (History of) Cerebral Infarction, Unspecified MD [employer] Connect (VV) Standard Documentation [facility] Clinician Resources Only: E911 (Emergency Call Relay Center): [phone] National Wave - Private Location App Crisis Line - 988 then press #1. [facility] Suicide Coordinator [phone], Ext. [phone]; Back-up Ext. [phone] MD Police, Sangeeta CAMPOS [phone] Introduction: Visit is being conducted by MD Mersimo. [place] identified with 2 identifiers: [X] Full Name [X] Date of [ ] VA ID Card Emergency Plan: [place] confirmed and/or provided the following information in case of emergency or technology failure. PATIENT PHONE - PHONE NUMBER [CELLULAR] - Is patient phone number correct, if not, enter below: [place]'s phone number: TAJ SAVANNA DE LA ROSA [address], [place], [address] [place]'s present location and address for appointment: his home [place]'s emergency contact name and phone number: E-Cont.: ESTRELLAJUVENCIO Relation Type: UNRELATED FRIEND/OTHER Relation Note: OTHERS [address] [place] [address] [facility] reported that location is private and safe: Yes Informed Consent: informed of the risks and benefits of Telehealth video care. has the right to refuse video services. If refuses video visit, a xeuo-tb-dnro visit will be scheduled. [place] verbalized consent for this video visit: Yes provided consent for any other persons present for visit: Yes If yes, who and relationship to patient:group Secure visit: Visit was locked for security and privacy:Yes /nicole/ MARIALUISA SALCEDO KITCHEN ASSISTANT Primer Boxer Signed: 12/04/2023 10:22 MARIALUISA SALCEDO [facility]
--- OUTSIDE RECORDS SUMMARY | 2024-06-01 10:57 | XMS_ITS | Continuity of Care Document ---
Author Name [facility] Organization [facility] Care Team Providers Care Professor Of Visual Arts Name Role Phone [facility] Unavailable Unavailable Problems Combined list of problems [...] [facility] 12[facility] - [facility] SAINI [place] [facility] [place] [facility] Hemiparesis Active Condition [...] 2019 Entered By: KIRK COTTRELL Comment: NON [place] renal - DR CASILLAS / DR Holden- x 15 yrsApr 15, 2019 Entered By: KIRK COTTRELL Comment: NON GI DR SIDHU - hx bleeding ulder - last 2019 Entered By: KIRK COTTRELL Comment: NON [facility] cardiology dr TA - 2019 Entered By: KIRK COTTRELL Comment: NON [place] PCP - [facility] med pract - DR BRAVO SAINI - [phone] 15, 2019 Entered By: KIRK COTTRELL Comment: Neuro surgeon - DR VELA ( back neuro stim) - [facility] History of depression [...] Post-traumatic stress disorder, chronic [facility] [place] [facility] Diagnosis: ICD-10-CM 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 EL D Diagnosis: ICD-10-CM G43.909 Migraine, unsp, not intractable, without status migrainosus Active Diagnosis [facility] [place] Diagnosis: ICD-10-CM F34.9 Persistent mood [affective] disorder, unspecified Active Diagnosis [facility] [place] Diagnosis: ICD-10-CM G62.9 Polyneuropathy, unspecified Active Diagnosis [facility] [place] Diagnosis: ICD-10-CM Z46.0 Encounter for fit/adjst of spectacles and contact lenses Active Diagnosis [facility] [place] Diagnosis: ICD-10-CM E11.9 Type 2 diabetes mellitus without complications Active Diagnosis [facility] [place] [facility] Diagnosis: ICD-10-CM Z51.81 Encounter for therapeutic drug level monitoring Active Diagnosis ELD Diagnosis: ICD-10-CM N18.9 Chronic kidney disease, unspecified Active Diagnosis [facility] [place] [facility] Diagnosis: ICD-10-CM M25.552 Pain in left hip Active Diagnosis [facility] [place] [facility] Diagnosis: ICD-10-CM R41.9 Unsp symptoms and signs w cognitive functions and awareness Active Diagnosis [facility] [place] [facility] Diagnosis: ICD-10-CM I10 Essential (primary) hypertension Active Diagnosis [facility] [place] [facility] Medications Combined list of outpatient medications from [...] DAILY ORAL ACTIVE JOSE MANUEL PITT 2023 [place] [facility] AMMONIUM LACTATE 12% LOTION APPLY SMALL AMOUNT TOPICALL Y AT BEDTIME FOR DRY IRRITATE D SKIN UNDER OCCLUSIO N TOPICA L ACTIVE 08/21/2024 [id number] JULITA QUINTEROS 2023 240 [place] ARMODAFINIL 50MG TAB TAKE TWO TABLETS BY MOUTH EVERY MORNING ORAL ACTIVE 09/30/2024 [id number] 5 Mack PIERRE E 2024 60 [facility] ARMODAFINIL 50MG TAB TAKE TWO TABLETS BY MOUTH EVERY MORNING ORAL DISCONT INUED (EDIT) 06/17/2024 [id number] 5 Mack PIERRE E 2023 60 [facility] ARMODAFINIL 50MG TAB TAKE TWO TABLETS BY MOUTH EVERY MORNING TO IMPROVE WAKEFULN ESS ORAL DISCONT INUED (EDIT) 05/27/2024 [id number] 4 Mack PIERRE E 2023 60 [facility] ARMODAFINIL 50MG TAB TAKE ONE TABLET BY MOUTH EVERY MORNING FOR 4 DAYS, THEN TAKE TWO TABLETS EVERY MORNING ORAL DISCONT INUED (EDIT) 11/27/2023 [id number] 4 Mack PIERRE E 2023 56 [facility] ATORVASTATI N CA 80MG TAB TAKE ONE TABLET BY MOUTH ONCE DAILY ORAL ACTIVE Melissa COTTRELL 2019 [facility] BREXPIPRAZO LE 1MG TAB TAKE ONE TABLET BY MOUTH ONCE DAILY ORAL DISCONT INUED (EDIT) 12/16/2024 [id number] 4 Mack PIERRE E 2023 90 [facility] BREXPIPRAZO LE 1MG TAB TAKE ONE TABLET BY MOUTH ONCE DAILY FOR MOOD ORAL DISCONT INUED (EDIT) 02/22/2024 [id number] 4 Mack PIERRE E 2023 90 [facility] BREXPIPRAZO LE 2MG TAB TAKE ONE TABLET BY MOUTH ONCE DAILY ORAL ACTIVE 01/27/2025 [id number] 5 Mack PIERRE E 2023 90 [facility] BREXPIPRAZO LE 2MG TAB TAKE ONE TABLET BY MOUTH ONCE DAILY FOR MOOD DOSE INCREASE ORAL DISCONT INUED (EDIT) 09/19/2024 [id number] Mack PIERRE E 2023 90 [facility] CLONIDINE HCL 0.1MG TAB TAKE ONE TABLET BY MOUTH AT BEDTIME FOR INSOMNIA ORAL ACTIVE 03/31/2025 [id number] 5 Mack PIERRE E 2024 90 [facility] CLONIDINE HCL 0.1MG TAB TAKE ONE TABLET BY MOUTH AT BEDTIME FOR INSOMNIA ORAL DISCONT INUED (EDIT) 11/25/2024 [id number] 5 Mack PIERRE E 2023 90 [facility] CLONIDINE HCL 0.1MG TAB TAKE ONE TABLET BY MOUTH AT BEDTIME FOR INSOMNIA ORAL DISCONT INUED 05/23/2024 [id number] 4 Mack PIERRE E 2023 90 [facility] CLOPIDOGREL BISULFATE 75MG TAB TAKE ONE TABLET BY MOUTH ONCE DAILY ORAL ACTIVE PETROFF,S E 2019 [facility] GABAPENTIN 400MG CAP TAKE 3 CAPSULES BY MOUTH THREE TIMES A DAY ORAL ACTIVE aMck PIERRE E 2021 [facility] LIDOCAINE 5% PATCH APPLY 1 PATCH TOPICALL Y EVERY 12 HOURS NEEDED FOR NERVE PAIN (LEAVE PATCH ON FOR 12 HOURS, THEN REMOVE PATCH) TOPICA L ACTIVE 07/29/2024 [id number] 4 JOSE MANUEL PITT 2023 30 [place] [facility] LOSARTAN 50MG TAB TAKE ONE TABLET BY MOUTH ONCE DAILY ORAL ACTIVE PETROFF,S UANNE 2019 [place] [facility] [place] MAGNESIUM OXIDE 250MG TAB TAKE ONE TABLET BY MOUTH ONCE DAILY ORAL ACTIVE PETROFF,S NN2019 [facility] METHOCARBAM [place] 750MG TAB TAKE ONE TABLET BY MOUTH ONCE DAILY ORAL ACTIVE PETROFF,S 2019 [facility] METOPROLOL TARTRATE 25MG TAB TAKE ONE TABLET BY MOUTH ONCE DAILY ORAL ACTIVE PETROFF,S 2019 [facility] MIRABEGRON 25MG TAB,SA TAKE ONE TABLET BY MOUTH ONCE DAILY ORAL HOLD 10/23/2024 [id number] 4 SHEPHERDGARRY JESSICA MURILLO S 2023 90 [facility] OMEPRAZOLE 20MG CAP,EC TAKE 2 CAPSULES BY MOUTH ONCE DAILY ORAL ACTIVE PETROFF,S 2019 [facility] [place] ONABOTULINU MTOXINA 200 UNIT/FRANCISCO J INJ INJECT DIRECTED INTRAMUS CULARLY EVERY THREE MONTHS FOR MIGRAINE HEADACHE S INTRAM USCULA R SUSPEND ED 04/21/2025 [id number] 5 NARINDER CARRILLO Y 2024 1 [facility] ONABOTULINU MTOXINA 200 UNIT/FRANCISCO J INJ INJECT DIRECTED INTRAMUS CULARLY EVERY THREE MONTHS FOR MIGRAINE HEADACHE S INTRAM USCULA R DISCONT INUED 07/22/2024 [id number] 5 NARINDER CARRILLO Y 2023 1 [facility] ONABOTULINU MTOXINA 200 UNIT/FRANCISCO J INJ INJECT DIRECTED INTRAMUS CULARLY EVERY THREE MONTHS FOR MIGRAINE HEADACHE S INTRAM USCULA R DISCONT INUED 10/09/2023 [id number] 4 NARINDER CARRILLO Y 2022 1 [facility] POLYETHYLEN E GLYCOL 3350 PWDR,ORAL TAKE 17 GRAMS (1 CAPFUL) BY MOUTH ONCE DAILY ORAL ACTIVE PETROFF,S 2019 [facility] SERVICESRW[facility] [place] SUCRALFATE 1GM TAB TAKE ONE TABLET BY MOUTH TWICE DAILY ORAL ACTIVE PETROFF,S 2020 [facility] [place] TRAZODONE HCL 100MG TAB TAKE TWO TABLETS BY MOUTH AT BEDTIME FOR INSOMNIA ORAL ACTIVE 03/31/2025 [id number] 5 Mack PIERRE E 2024 180 [facility] [place] TRAZODONE HCL 100MG TAB TAKE TWO TABLETS BY MOUTH AT BEDTIME FOR INSOMNIA ORAL DISCONT INUED (EDIT) 11/25/2024 [id number] 4 Mack PIERRE E 2023 180 [facility] [place] TRAZODONE HCL 100MG TAB TAKE TWO TABLETS BY MOUTH AT BEDTIME FOR INSOMNIA ORAL DISCONT INUED 05/23/2024 [id number] Mack PIERRE E 2023 180 [facility] [place] TRAZODONE HCL 100MG TAB TAKE TWO TABLETS BY MOUTH AT BEDTIME FOR INSOMNIA ORAL DISCONT INUED 12/14/2023 [id number] 4 Mack PIERRE E 2022 180 [facility] [place] TROSPIUM CL 20MG TAB TAKE ONE TABLET BY MOUTH TWICE DAILY ORAL ACTIVE 04/01/2025 [id number] SHEPHERD-GO ODE,CORLI S 2024 60 [facility] [place] TROSPIUM CL 20MG TAB TAKE ONE TABLET BY MOUTH TWICE DAILY ON AN EMPTY STOMACH ORAL DISCONT INUED 10/28/2024 [id number] 5 SHEPHERD-GO ODE,CORLI S 2023 60 [facility] [place] TROSPIUM CL 20MG TAB TAKE ONE TABLET BY MOUTH TWICE DAILY ON AN EMPTY STOMACH ORAL DISCONT INUED 08/23/2024 [id number] SHEPHERD-GO ODE,CORLI S 2023 60 [facility] [place] TROSPIUM CL 20MG TAB TAKE ONE TABLET BY MOUTH TWICE DAILY ADMINIST ER ON AN EMPTY STOMACH ORAL DISCONT INUED 06/13/2024 [id number] JESSICA BECKWITH S 2023 60 [facility] Allergies, Adverse Reactions, Alerts Combined list of allergies from Department of Defense and Veterans Affairs facilities. It does not include entries that were removed or entered in error. Substance Category Reaction Severity Reaction type Status Date Reported Comments Source METFORMIN Propensity to adverse reactions to drug (finding) Acute renal failure syndrome active 0 [facility] Immunizations Combined list of available immunizations from the Department of Defense and Veterans Affairs facilities. Immunization Series Date Given Administered By Site Reaction Lot Number CVX Code Drug Machine Captain Status Comments Source ZOSTER RECOMBINANT 2 2022 AYALA KELLY LEFT DELTO ID [id number] 187 complet ed [place], Adjuvant suspensio n- [id number] exp- 10/06/23 [facility] ZOSTER RECOMBINANT 2022 FARHAN BAUTISTA LEFT DELTO ID [id number] 187 complet ed [place], [id number] [facility] INFLUENZA, UNSPECIFIED FORMULATION 2022 88 complet ed Completed Series, HISTORICA L INFORMATI ON - FROM OTHER REGISTRY, Natty Irizarry [facility] COVID-19 ([employer]), MRNA, LNP-S, BIVALENT BOOSTER, PF, 30 MCG/0.3 ML DOSE 4 2021 300 complet ed HISTORICA L INFORMATI ON - FROM OTHER REGISTRY, Lot#: [id number] [facility] INFLUENZA, UNSPECIFIED FORMULATION 2021 88 complet ed Completed Series, HISTORICA L INFORMATI ON - FROM PATIENT'S RECALL, [facility] TDAP 2021 115 complet ed HISTORICA L INFORMATI ON - FROM OTHER PROVIDER, [facility] COVID-19 ([employer]), MRNA, LNP-S, PF, 30 MCG/0.3 ML DOSE [address] [facility] COVID-19 ([employer]), MRNA, LNP-S, PF, 30 [...] Oct 28, 2023 09:59 AM Reporting Lab: [facility] [address] [facility] [address] Performing Lab: [facility] [address] [facility] [address] [facility] TSH THYROTROPI N [UNITS/VOL UME] IN SERUM OR PLASMA 1.09 u[IU]/mL 0.35 - 5.00 12/18 Specimen Type: SERUM No comment entered. Ordering Provider: JET PIERRE Report Released Date/Time: Oct 28, 2023 09:59 AM Reporting Lab: [facility] [address] [address] Performing Lab: [facility] [address] [facility] [address] [facility] VITAMIN B12 COBALAMIN (VITAMIN B12) [MASS/VOLU ME] IN SERUM OR PLASMA 297 pg/mL 200 - 900 12/18 Specimen Type: SERUM No comment entered. Ordering Provider: JET PIERRE Report Released Date/Time: Oct 28, 2023 09:59 AM Reporting Lab: [facility] [place] [facility] [address] [facility] [address] Performing Lab: [facility] [place] [facility] [address] [phone] [facility] [facility] VITAMIN D (25-OH) 25-HYDROXY VITAMIN D3 [MASS/VOLU ME] IN SERUM OR PLASMA 38 ng/mL 20 - 50 12/18 Specimen Type: SERUM No comment entered. Ordering Provider: JET PIERRE Report Released Date/Time: Oct 28, 2023 09:59 AM Reporting Lab: [facility] [place] [facility] [address] [address] Performing Lab: [facility] [place] [address] [address] [facility] [facility] LIPID PANEL FASTING CHOLESTERO L [MASS/VOLU ME] IN SERUM OR PLASMA 113 mg/dL 12/18 Specimen Type: SERUM No comment entered. Ordering Provider: JET PIERRE Report Released Date/Time: Dec 16, 2023 09:50 AM Reporting Lab: [facility] [place] [facility] [address] [address] Performing Lab: [facility] [place] [address] [address] [facility] [place] [facility] LIPID PANEL FASTING TRIGLYCERI DE [MASS/VOLU ME] IN SERUM OR PLASMA 85 mg/dL 0 - 150 12/18 Specimen Type: SERUM No comment entered. Ordering Provider: JET PIERRE Report Released Date/Time: Dec 16, 2023 09:50 AM Reporting Lab: [facility] [place] [facility] [address] [facility] [address] Performing Lab: [facility] [place] [address] [address] [facility] [place] [facility] LIPID PANEL FASTING CHOLESTERO L IN LDL [MASS/VOLU ME] IN SERUM OR PLASMA BY CALCULATIO N 50 mg/dL 0 - 129 12/18 Specimen Type: SERUM No comment entered. Ordering Provider: JET PIERRE Report Released Date/Time: Dec 16, 2023 09:50 AM Reporting Lab: [address] [address] Performing Lab: [address] [address] [facility] LIPID PANEL FASTING CHOLESTERO L.TOTAL/CH OLESTEROL IN HDL [MASS RATIO] IN SERUM OR PLASMA 2.5 12/18 Specimen Type: SERUM No comment entered. Ordering Provider: JET PIERRE Report Released Date/Time: Dec 16, 2023 09:50 AM Reporting Lab: [address] [address] Performing Lab: [address] [address] [facility] LIPID PANEL FASTING CHOLESTERO L IN HDL [MASS/VOLU ME] IN SERUM OR PLASMA 46 mg/dL 40 - 60 12/18 Specimen Type: SERUM No comment entered. Ordering Provider: JET PIERRE Report Released Date/Time: Dec 16, 2023 09:50 AM Reporting Lab: [address] [address] Performing Lab: [address] [address] [facility] HEMOGLOB IN A1C PANEL HEMOGLOBIN A1C/HEMOGL OBIN.TOTAL [...] AM Reporting Lab: [facility] [place] [facility] [address] [facility] [address] Performing Lab: [facility] [place] [facility] [address] [facility] [address] [facility] [place] [facility] BASIC METABOLI C PANEL (fasting ) UREA NITROGEN [MASS/VOLU ME] IN SERUM OR PLASMA 18 mg/dL 7 - 25 12/18 Specimen Type: SERUM No comment entered. Ordering Provider: JET PIERRE Report Released Date/Time: Dec 16, 2023 09:50 AM Reporting Lab: [facility] [place] [facility] [address] [facility] [address] Performing Lab: [place] [facility] [facility] [place] [address] [address] [place] [facility] [facility] [facility] BASIC METABOLI C PANEL (fasting ) GLUCOSE [MASS/VOLU ME] IN SERUM OR PLASMA 117 mg/dL 65 - 100 12/18 H Specimen Type: SERUM No comment entered. Ordering Provider: JET PIERRE Report Released Date/Time: Dec 16, 2023 09:50 AM Reporting Lab: [facility] [place] [address] [address] Performing Lab: [facility] [place] [address] [address] [facility] [place] [facility] BASIC METABOLI C PANEL (fasting ) SODIUM [MOLES/VOL UME] IN SERUM OR PLASMA 141 mmol/L 135 - 145 12/18 Specimen Type: SERUM No comment entered. Ordering Provider: JET PIERRE Report Released Date/Time: Dec 16, 2023 09:50 AM Reporting Lab: [facility] [place] [address] [address] Performing Lab: [facility] [place] [address] [address] [facility] [place] [facility] BASIC METABOLI C PANEL (fasting ) POTASSIUM [MOLES/VOL UME] IN SERUM OR PLASMA 4.3 mmol/L 3.5 - 5.0 12/18 Specimen Type: SERUM No comment entered. Ordering Provider: JET PIERRE Report Released Date/Time: Dec 16, 2023 09:50 AM Reporting Lab: [facility]ERR[facility]ENTERTRN [facility] [address] Performing Lab: [facility] WSTRN [facility] [address] [facility]ERRBEACON [facility]HAVIOR[facility]PITALN [facility]ITALUSE [facility] BASIC METABOLI C PANEL (fasting ) CHLORIDE [MOLES/VOL UME] IN SERUM OR PLASMA 107 mmol/L 100 - 110 12/18 Specimen Type: SERUM No comment entered. Ordering Provider: JET PIERRE Report Released Date/Time: Dec 16, 2023 09:50 AM Reporting Lab: [facility]USE[address] [address] Performing Lab: [facility]ERRW. [facility] CENTERTRN [facility]USE[address] [address] [facility] BASIC METABOLI C PANEL (fasting ) CARBON DIOXIDE, TOTAL [MOLES/VOL UME] IN SERUM OR PLASMA 25 meq/L 20 - 30 12/18 Specimen Type: SERUM No comment entered. Ordering Provider: JET PIERRE Report Released Date/Time: Dec 16, 2023 09:50 AM Reporting Lab: [facility]ERRW[facility] CENTERTRN [facility]USE[address] [address] Performing Lab: [facility]RL TRN [facility]USE[address] [address] [facility]ITALUSE [facility] BASIC METABOLI C PANEL (fasting ) CREATININE [MASS/VOLU ME] IN SERUM OR PLASMA 0.98 mg/dL 0.50 - 1.40 12/18 Specimen Type: SERUM No comment entered. Ordering Provider: JET PIERRE Report Released Date/Time: Dec 16, 2023 09:50 AM Reporting Lab: [facility]ERRW[facility] CENTERTRN [facility]USE[address] [address] Performing Lab: [facility] [place] [facility] [address] [address] [facility] [place] [facility] BASIC METABOLI C PANEL (fasting ) GLOMERULAR FILTRATION RATE/1.73 SQ M.PREDICTE D [VOLUME RATE/AREA] IN SERUM, PLASMA OR BLOOD BY CREATININE -BASED FORMULA (CKD-EPI 2020) 85 mL/min 60 12/18 Specimen Type: SERUM No comment entered. Ordering Provider: JET PIERRE Report Released Date/Time: Dec 16, 2023 09:50 AM Reporting Lab: [place] [facility] [place] [facility] [address] [address] Performing Lab: [place] [facility] [place] [address] [address] [place] [facility] [facility] [facility] PSA PROSTATE SPECIFIC AG [MASS/VOLU ME] IN SERUM OR PLASMA 0.30 ng/mL 0.00 - 4.00 01/23 Specimen Type: SERUM No comment entered. Ordering Provider: MAYE PITT SA Report Released Date/Time: Jan 23, 2023 09:37 AM Reporting Lab: [place] [facility] [facility] [address] [facility] [address] Performing Lab: [place] [facility] [facility] [address] [address] [facility]RL W[facility]N [place] [facility] MICROSCO PIC AUTOMATE D, URINE LEUKOCYTES [#/AREA] IN URINE SEDIMENT BY MICROSCOPY HIGH POWER FIELD 0-5/[HPF ] 0 - 5 01/23 Specimen Type: URINE Comment: If Glucose = >500 and Ketones are positive, please alert the Physician. Ordering Provider: MAYE PITT SA Report Released Date/Time: Jan 23, 2023 09:42 AM Reporting Lab: [facility] [place] [facility] [address] [address] Performing Lab: [facility] [place] [address] [address] [facility] [place] [facility] MICROSCO PIC AUTOMATE D, URINE MUCUS [#/AREA] IN URINE SEDIMENT BY MICROSCOPY LOW POWER FIELD FEW/[LPF ] 01/23 Specimen Type: URINE Comment: If Glucose = >500 and Ketones are positive, please alert the Physician. Ordering Provider: MAYE PITT SA Report Released Date/Time: Jan 23, 2023 09:42 AM Reporting Lab: [facility]ERRW. [facility]ELOPMENTAL CENTERTRN [facility]ITALUSETS [facility] [address] [facility] [address] Performing Lab: [facility]ENTERRL WSTRN [facility] [address] [address] [facility]ENTERRBEACON BEHAVIORAL HOSPITALN [facility]ITALUSE [facility] MICROSCO PIC AUTOMATE D, URINE ERYTHROCYT ES [#/AREA] IN URINE SEDIMENT BY MICROSCOPY HIGH POWER FIELD 0-2/[HPF ] 0 - 3 01/23 Specimen Type: URINE Comment: If Glucose = >500 and Ketones are positive, please alert the Physician. Ordering Provider: MAYE PITT SA Report Released Date/Time: Jan 23, 2023 09:42 AM Reporting Lab: [facility] [place] [facility] [address] [address] Performing Lab: [place] [facility] [facility] [address] [address] [facility]ERRW. [facility]OP[facility] CENTERTRN [facility] MONTGOMERYCHUSE [facility] MICROSCO PIC AUTOMATE D, URINE EPITHELIAL CELLS.SQUA MOUS [#/AREA] IN URINE SEDIMENT BY MICROSCOPY HIGH POWER FIELD FEW/[HPF ] 01/23 Specimen Type: URINE Comment: If Glucose = >500 and Ketones are positive, please alert the Physician. Ordering Provider: MAYE PITT SA Report Released Date/Time: Jan 23, 2023 09:42 AM Reporting Lab: [facility] [place] [facility] [address] [address] Performing Lab: [facility] [address] [address] [facility] URINALYS IS CLEAN CATCH COLOR OF URINE Yellow 01/23 Specimen Type: URINE Comment: If Glucose = >500 and Ketones are positive, please alert the Physician. Ordering Provider: MAYE PITT SA Report Released Date/Time: Jan 23, 2023 09:42 AM Reporting Lab: [facility] [place] [facility] [address] [facility] [facility] [address] Performing Lab: [facility] [place] [facility] [address] [facility] [address] [facility] URINALYS IS CLEAN CATCH APPEARANCE OF URINE Clear 01/23 Specimen Type: URINE Comment: If Glucose = >500 and Ketones are positive, please alert the Physician. Ordering Provider: MAYE PITT SA Report Released Date/Time: Jan 23, 2023 09:42 AM Reporting Lab: [facility] [place] [facility] [address] [facility] [address] Performing Lab: [facility] [place] [facility] [address] [address] [facility] URINALYS IS CLEAN CATCH GLUCOSE [MASS/VOLU ME] IN URINE 150 mg/dL 01/23 Specimen Type: URINE Comment: If Glucose = >500 and Ketones are positive, please alert the Physician. Ordering Provider: MAYE PITT SA Report Released Date/Time: Jan 23, 2023 09:42 AM Reporting Lab: [facility] [place] [facility] [address] [facility] [address] Performing Lab: [facility] [place] [facility] [address] [facility] [address] [facility] URINALYS IS CLEAN CATCH KETONES [MASS/VOLU ME] IN URINE BY TEST STRIP NEGATIVE mg/dL 01/23 Specimen Type: URINE Comment: If Glucose = >500 and Ketones are positive, please alert the Physician. Ordering Provider: MAYE PITT SA Report Released Date/Time: Jan 23, 2023 09:42 AM Reporting Lab: [facility] [address] [facility] [facility] [address] Performing Lab[facility] [place] [facility] [address] [facility] [address] [facility] URINALYS IS CLEAN CATCH ERYTHROCYT ES [PRESENCE] IN URINE SEDIMENT BY LIGHT MICROSCOPY NEGATIVE mg/dL 01/23 Specimen Type: URINE Comment: If Glucose = >500 and Ketones are positive, please alert the Physician. Ordering Provider: MAYE PITT SA Report Released Date/Time: Jan 23, 2023 09:42 AM Reporting Lab: [facility] [place] [facility] [address] [facility] [facility] [address] Performing Lab: [facility] [place] [facility] [address] [facility] [facility] [address] [facility] [place] [facility] URINALYS IS CLEAN CATCH PROTEIN [MASS/VOLU ME] IN URINE BY TEST STRIP 200 mg/dL 01/23 Specimen Type: URINE Comment: If Glucose = >500 and Ketones are positive, please alert the Physician. Ordering Provider: MAYE PITT SA Report Released Date/Time: Jan 23, 2023 09:42 AM Reporting Lab: [facility] [place] [address] [address] Performing Lab: [facility] [place] [facility] [address] [facility] [address] [facility] [place] [facility] URINALYS IS CLEAN CATCH NITRITE [PRESENCE] IN URINE NEGATIVE mg/dL 01/23 Specimen Type: URINE Comment: If Glucose = >500 and Ketones are positive, please alert the Physician. Ordering Provider: MAYE PITT SA Report Released Date/Time: Jan 23, 2023 09:42 AM Reporting Lab: [facility] [place] [facility] [address] [facility] [address] Performing Lab: [facility] [place] [facility] [address] [facility] [address] [place] [facility] [place] [facility] URINALYS IS CLEAN CATCH BILIRUBIN. TOTAL [PRESENCE] IN URINE NEGATIVE mg/dL 01/23 Specimen Type: URINE Comment: If Glucose = >500 and Ketones are positive, please alert the Physician. Ordering Provider: MAYE PITT SA Report Released Date/Time: Jan 23, 2023 09:42 AM Reporting Lab: [facility] [place] [address] [address] Performing Lab: [facility] [place] [facility] [address] [facility] [address] [facility] [place] [facility] URINALYS IS CLEAN CATCH SPECIFIC GRAVITY OF URINE BY REFRACTOME TRY 1.027 1.016 - 1.022 01/23 H Specimen Type: URINE Comment: If Glucose = >500 and Ketones are positive, please alert the Physician. Ordering Provider: MAYE PITT SA Report Released Date/Time: Jan 23, 2023 09:42 AM Reporting Lab: [facility] [place] [facility] [address] [facility] [address] Performing Lab: [facility] [address] [facility] [facility] [address] [facility] [place] [facility] URINALYS IS CLEAN CATCH PH OF URINE BY TEST STRIP 6.0 5.0 - 9.0 01/23 Specimen Type: URINE Comment: If Glucose = >500 and Ketones are positive, please alert the Physician. Ordering Provider: MAYE PITT SA Report Released Date/Time: Jan 23, 2023 09:42 AM Reporting Lab: [facility] [place] [facility] [address] [facility] [address] Performing Lab: [facility] [address] [facility] [address] [facility] URINALYS IS CLEAN CATCH UROBILINOG EN [MASS/VOLU ME] IN URINE BY TEST STRIP <2.0mg/d L <2.0 - 2.0 01/23 Specimen Type: URINE Comment: If Glucose = >500 and Ketones are positive, please alert the Physician. Ordering Provider: MAYE PITT SA Report Released Date/Time: Jan 23, 2023 09:42 AM Reporting Lab: [facility] [place] [facility] [address] [facility] [address] Performing Lab: [facility]TRN [facility]USE[address] [address] [facility]TR[facility] [place] [facility] URINALYS IS CLEAN CATCH LEUKOCYTE ESTERASE [PRESENCE] IN URINE BY TEST STRIP NEGATIVE 01/23 Specimen Type: URINE Comment: If Glucose = >500 and Ketones are positive, please alert the Physician. Ordering Provider: MAYE PITT SA Report Released Date/Time: Jan 23, 2023 09:42 AM Reporting Lab: [facility] [address] [facility] [address] Performing Lab: [facility] [address] [facility] [address] [facility] Vital Signs Combined list of inpatient and outpatient Vital Signs from Department of Defense and Veterans Affairs, ranging from 12 months to all on record, depending upon the facility. Vital Sign Value Date Comments Source SYSTOLIC BLOOD PRESSURE 158 04/21/19 25 09:04:00 [facility] DIASTOLIC BLOOD PRESSURE 77 025 09:04:00 [facility] PULSE OXIMETRY 96 04/20/2024 09:04:00 [facility] [place] [facility] DIASTOLIC BLOOD PRESSURE 82 08:13:13 [facility] [place] [facility] SYSTOLIC BLOOD PRESSURE 149 07/22/19 24 07:55:24 [facility] DIASTOLIC [...] to the last 18 months, not all [place] inpatient encounters are included; 2) Encounters from the Department of Defense facilities going backup to 280 months. Location Location Details Encounter Type Encounter Number Reason For Visit Attending Provider ADM Date DC Date Status Disposition Source [facility] PSYTX W PT 45 MINUTES [id number] Diagnos is: ICD-10- CM F43.12 Post-tr aumatic stress disorde r, chronic HEATHER CAMPOS 12/03 [facility] EYE EXAM&TX ESTAB PT 1/>VST [id number] Diagnos is: ICD-10- CM E11.9 Type 2 diabete s mellitu s without complic ations SAETRINA HORNER 12/04 [facility] Outpatient Encounter [id number] 12/04 [facility] FIT SPECTACLES MULTIFOCAL [id number] Diagnos is: ICD-10- CM Z46.0 Encount er for fit/adj st of spectac les and contact lenses ADENIKE GOOD RYNE 12/04 [facility] OFFICE O/P EST HI 40-54 MIN [id number] Diagnos is: ICD-10- CM F43.12 Post-tr aumatic stress disorde r, chronic CYNTHIA PIERRE SSICA E 12/13 [facility] PSYTX W PT 45 MINUTES [id number] Diagnos is: ICD-10- CM F43.12 Post-tr aumatic stress disorde r, chronic HEATHER CAMPOS A 12/17 [facility] PSYTX W PT 45 MINUTES [id number] Diagnos is: ICD-10- CM F43.12 Post-tr aumatic stress disorde r, chronic HEATHER CAMPOS A 12/31 [facility] PSYTX W PT 45 MINUTES [id number] Diagnos is: ICD-10- CM F34.9 Persist ent mood [affect evie] disorde r, unspeci fied HEATHER CAMPOS A 01/14 [facility] OFFICE O/P EST MOD 30-39 MIN [id number] Diagnos is: ICD-10- CM I10 Essenti al (primar y) hyperte nsion SWEETIE,L DEEDEE ARIS 01/23 [facility] OFFICE O/P EST MOD 30-39 MIN [id number] Diagnos is: ICD-10- CM G43.909 Migrain e, unsp, not intract able, without status migrain osus RAJI CARRILLO Y 01/23 [facility] Outpatient Encounter [id number] 01/23 [facility] PSYTX W PT 45 MINUTES [id number] Diagnos is: ICD-10- CM F43.12 Post-tr aumatic stress disorde r, chronic HEATHER CAMPOS A 01/28 [facility] PSYTX W PT 45 MINUTES [id number] Diagnos is: ICD-10- CM F43.12 Post-tr aumatic stress disorde r, chronic HEATHER CAMPOS A 02/12 [facility] THERAPEUTI C EXERCISES [id number] Diagnos is: ICD-10- CM M25.552 Pain in left hip VIVIAN MARTINEZ 02/21 [facility] OFFICE O/P EST MOD 30 MIN [id number] Diagnos is: ICD-10- CM F34.9 Persist ent mood [affect evie] disorde r, unspeci CYNTHIA Fallon E 02/21 [facility] PSYTX W PT 45 MINUTES [id number] Diagnos is: ICD-10- CM F43.12 Post-tr aumatic stress disorde r, chronic HEATHER CAMPOS A 02/25 [facility] THERAPEUTI C EXERCISES [id number] Diagnos is: ICD-10- CM M25.552 Pain in left hip VIVIAN MARTINEZ B 03/11 [facility] Out[facility] Encounter [id number] 03/22 [facility] PSYTX W PT 45 MINUTES [id number] Diagnos is: ICD-10- CM F43.12 Post-tr aumatic stress disorde r, chronic BETH,HEATHER A 03/25 [facility] NEUROMUSCU LAR REEDUCATIO N [id number] Diagnos is: ICD-10- CM M25.552 Pain in left hip VIVIAN MARTINEZ B 03/25 [facility] Out[facility] Encounter [id number] 04/15 [facility] PSYTX W PT 45 MINUTES [id number] Diagnos is: ICD-10- CM F43.12 Post-tr aumatic stress disorde r, chronic BETH,HEATHER A 04/15 [facility]counter [id number] 04/17 [facility] PSYCH DIAGNOSTIC EVALUATION [id number] Diagnos is: ICD-10- CM R41.9 Unsp symptom s and signs w cogniti ve functio ns and awarene ss FEARING,ND ANDREZ A 04/21 [facility] PSYTX W PT 45 MINUTES [id number] Diagnos is: ICD-10- CM F34.9 Persist ent mood [affect evie] disorde r, unspeci HEATHER August A 04/22 [facility] OFFICE O/P EST MOD 30 MIN [id number] Diagnos is: ICD-10- CM G43.909 Migrain e, unsp, not intract able, without status migrain RAJI Vallejo IEL Y 04/23 [facility] Out[facility] Encounter [id number] 04/23 [facility] PSYTX W PT 45 MINUTES [id number] Diagnos is: ICD-10- CM F34.9 Persist ent mood [affect evie] disorde r, unspeci HEATHER August A 04/29 [facility] Outpatient Encounter [id number] 04/30 [facility] PSYTX W PT 45 MINUTES [id number] Diagnos is: ICD-10- CM F43.12 Post-tr aumatic stress disorde r, chronic HEATHER CAMPOS 05/12 [facility] PSYCL/NRPS Y[place] TST PHY/[place] [id number] Diagnos is: ICD-10- CM R41.9 Unsp symptom s and signs w cogniti ve functio ns and awarene ss FEARING,ND CHAEL A 05/15 [facility] Out[facility] En[facility] [id number] 05/21 [facility] OFFICE O/P EST MOD 30 MIN [id number] Diagnos is: ICD-10- CM F34.9 Persist ent mood [affect evie] disorde r, unspeci fiCYNTHIA Ortega SSICA E 05/22 [facility] PSYTX W PT 45 MINUTES [id number] Diagnos is: ICD-10- CM F34.9 Persist ent mood [affect evie] disorde r, unspeci HEATHER August 05/26 [facility] Out[facility] En[facility] [id number] 06/05 [facility] PSYTX W PT 45 MINUTES [id number] Diagnos is: ICD-10- CM F43.12 Post-tr aumatic stress disorde r, HEATHER Alcantara 06/09 [facility] En[facility] [id number] 06/11 [facility] THERAPEUTI C EXERCISES [id number] Diagnos is: ICD-10- CM M25.552 Pain in left hip VIVIAN MARTINEZ 06/12 [facility] PSYTX W PT 45 MINUTES [id number] Diagnos is: ICD-10- CM F43.12 Post-tr aumatic stress disorde r, HEATHER Alcantara 07/07 [facility] PSYTX W PT 45 MINUTES [id number] Diagnos is: ICD-10- CM F43.12 Post-tr aumatic stress disorde r, chronic SIRISHA CAMPOSN A 07/21 [facility] OFFICE O/P EST MOD 30 MIN [id number] Diagnos is: ICD-10- CM G43.909 Migrain e, unsp, not intract able, without status migrain RAJI aVllejo IERufino Y 07/21 [facility] Outpatient Encounter [id number] 07/21 [facility] OFFICE O/P EST HI 40 MIN [id number] Diagnos is: ICD-10- CM F34.9 Persist ent mood [affect evie] disorde r, unspeci fied CYNTHIA PIERRE SSICA E 07/24 [facility] PSYTX W PT 45 MINUTES [id number] Diagnos is: ICD-10- CM F43.12 Post-tr aumatic stress disorde r, chronic HEATHER CAMPOS A 07/28 [facility] OFFICE O/P EST MOD 30 MIN [id number] Diagnos is: ICD-10- CM N18.9 Chronic kidney disease , unspeci fied Rufino PITT 07/28 [facility] Outpatient Encounter [id number] 07/29 [facility] Encounter [id number] 07/30 [facility] [place] OFF[place] O/P NEW LOW 30 MIN [id number] [id number] Diagnos is: ICD-10- CM L60.3 Nail dystrop hy ROSS,CHARL ES F 08/20 [place] [facility] PSYTX W PT 45 MINUTES [id number] Diagnos is: ICD-10- CM F34.9 Persist ent mood [affect evie] disorde r, unspeci HEATHER August A 09/01 [facility] OFFICE O/P EST MOD 30 MIN [id number] Diagnos is: ICD-10- CM F34.9 Persist ent mood [affect evie] disorde r, unspeci CYNTHIA Fallon SSICA E 09/08 [facility] GROUP PSYCHOTHER APY [id number] Diagnos is: ICD-10- CM F43.12 Post-tr aumatic stress disorde r, chronic DENISSE,LAZ AN 09/10 [facility] En[facility] [id number] MILLER,CHR ISTOPHER E 09/18 [facility] OFFICE O/P EST MOD 30 MIN [id number] Diagnos is: ICD-10- CM F34.9 Persist ent mood [affect evie] disorde r, unspeci CYNTHIA Fallon SSICA E 09/18 [facility] GROUP PSYCHOTHER APY [id number] Diagnos is: ICD-10- CM F43.12 Post-tr aumatic stress disorde r, chronic DENISSE,LAZ AN 09/24 [facility] PSYTX W PT 45 MINUTES [id number] Diagnos is: ICD-10- CM F34.9 Persist ent mood [affect evie] disorde r, unspeci fied HEATHER CAMPOS A 09/29 [facility] GROUP PSYCHOTHER APY [id number] Diagnos is: ICD-10- CM F43.12 Post-tr aumatic stress disorde r, chronic DENISSE,LAZ AN 10/01 [facility] GROUP PSYCHOTHER APY [id number] Diagnos is: ICD-10- CM F43.12 Post-tr aumatic stress disorde r, chronic DENISSE,LAZ AN 10/08 [facility] GROUP PSYCHOTHER APY [id number] 1. Diagnos is: ICD-10- CM F43.12 Post-tr aumatic stress disorde r, chronic DENISSE,LAZ AN 10/15 [facility] GROUP PSYCHOTHER APY [id number] 1. Diagnos is: ICD-10- CM F43.12 Post-tr aumatic stress disorde r, chronic DENISSE,LAZ AN 10/22 [facility] Out[facility] En[facility] [id number] 10/22 [facility] Encounter [id number] 10/24 [facility] PSYTX W PT 45 MINUTES [id number] 1. Diagnos is: ICD-10- CM F43.12 Post-tr aumatic stress disorde r, chronic HEATHER CAMPOS A 10/27 [facility] [id number] 10/27 [facility] OFFICE O/P EST MOD 30 MIN [id number] Diagnos is: ICD-10- CM G43.909 Migrain e, unsp, not intract able, without status migrain RAJI Vallejo IEL Y 10/27 [facility] Out[facility] Encounter [id number] 10/27 [facility] OFFICE O/P EST HI 40 MIN [id number] Diagnos is: ICD-10- CM F34.9 Persist ent mood [affect evie] disorde r, unspeci fied CYNTHIA PIERRE SSICA E 10/27 [facility] [place] QNHP OL DIG ASSMT&MGMT 5-10 [id number] [id number] Diagnos is: ICD-10- CM Z51.81 Encount er for therape utic drug level monitor TAMI Gay A 10/27 [place] [facility] GROUP PSYCHOTHER APY [id number] 1. Diagnos is: ICD-10- CM F43.12 Post-tr aumatic stress disorde r, chronic DENISSELAZ AVERY AN 10/29 [facility] GROUP PSYCHOTHER APY [id number] 1. Diagnos is: ICD-10- CM F43.12 Post-tr aumatic stress disorde r, chronic DENISSELAZ AVERY AN 11/05 [facility] GROUP PSYCHOTHER APY [id number] Diagnos is: ICD-10- CM F43.12 Post-tr aumatic stress disorde r, chronic DENISSELAZ AVERY AN 11/12 [facility] PSYTX W PT 45 MINUTES [id number] Diagnos is: ICD-10- CM F43.12 Post-tr aumatic stress disorde r, chronic BETH,HEATHER A 11/18 [facility] GROUP PSYCHOTHER APY [id number] 1. Diagnos is: ICD-10- CM F43.12 Post-tr aumatic stress disorde r, chronic DENISSELAZ AVERY AN 11/19 [facility] GROUP PSYCHOTHER APY [id number] Diagnos is: ICD-10- CM F43.12 Post-tr aumatic stress disorde r, chronic DENISSELAZ AVERY AN 11/26 [facility] GROUP PSYCHOTHER APY [id number] Diagnos is: ICD-10- CM F43.12 Post-tr aumatic stress disorde r, chronic DENISSELAZ AVERY AN 12/03 [facility] [id number] 1. Diagnos is: ICD-10- CM F43.12 Post-tr aumatic stress disorde r, chronic LAZ SALCEDO AN 12/10 [facility] OFF[facility] O/P EST MOD 30 MIN 59008-6.63 1. Diagnos is: ICD-10- CM F34.9 Persist ent mood [affect evie] disorde r, unspeci fiCYNTHIA Ortega SSICA E 12/15 [facility]Y [id number] 1. Diagnos is: ICD-10- CM F34.9 Persist ent mood [affect evie] disorde r, unspeci fied DENISSE,LAZ AN 12/17 [facility] [place]PRE [place]AM EST [place] 1/ 85998-3.63 1. Diagnos is: ICD-10- CM E11.9 Type 2 diabete s mellitu s without complic ations TRINA QUEVEDO SIRI 12/18 [facility] FIT SPECTACLES MULTIFOCAL 85283-3.63 1. Diagnos is: ICD-10- CM Z46.0 Encount er for fit/adj st of spectac les and contact lenses TRINA QUEVEDO SIRI 12/18 [facility] PSYTX W PT 45 MINUTES 08618-0.63 1. Diagnos is: ICD-10- CM F43.12 Post-tr aumatic stress disorde r, chronic HEATHER CAMPOS A 12/22 [facility] Outpatient Encounter [id number] [facility] A 12/22 [facility] [id number] Diagnos is: ICD-10- CM F43.12 Post-tr aumatic stress disorde r, chronic DENISSE,LAZ AN 12/24 [facility]Y [id number] Diagnos is: ICD-10- CM F43.12 Post-tr aumatic stress disorde r, chronic DENISSE,LAZ AN 12/31 [facility] HLTH BHV IVNTJ GRP EA ADDL [id number] Diagnos is: ICD-10- CM F43.12 Post-tr aumatic stress disorde r, chronic DENISSE,LAZ AN 01/07 [facility] [place] OFFICE O/P EST LOW 20 MIN 30920-7.63 [id number] Diagnos is: ICD-10- CM L60.3 Nail dystrop hy ALDAIRELPIDIO ES F 01/08 [place] [facility] PSYTX W PT 45 MINUTES 37842-4.63 1. Diagnos is: ICD-10- CM F43.12 Post-tr aumatic stress disorde r, chronic [facility] A 01/13 [facility] OFF[facility] O/P EST MOD 30 MIN [id number] Diagnos is: ICD-10- CM G43.909 Migrain e, unsp, not intract able, without status migrain osus RAJI CARRILLO IEL Y 01/19 [facility] [id number] Diagnos is: ICD-10- CM F43.12 Post-tr aumatic stress disorde r, chronic DENISSE,LAZ AN 01/21 [facility] Out[facility] Encounter [id number] 01/26 [facility] OFFICE O/P EST MOD 30 MIN 49249-6.63 [id number] Diagnos is: ICD-10- CM F34.9 Persist ent mood [affect evie] disorde r, unspeci CYNTHIA Fallon 01/26 [facility]Y [id number] Diagnos is: ICD-10- CM F34.9 Persist ent mood [affect evie] disorde r, unspeci lance LAZ SALCEDO AN 01/28 [facility] En[facility] [id number] 02/02 [facility] En[facility] [id number] 02/04 [facility] [facility] PSYTX W PT 45 MINUTES [id number] Diagnos is: ICD-10- CM F34.9 Persist ent mood [affect evie] disorde r, unspeci HEATHER August 02/09 [facility] PS[facility] W PT 45 MINUTES [id number] Diagnos is: ICD-10- CM F34.9 Persist ent mood [affect evie] disorde r, unspeci HEATHER August A 02/23 [facility] STRESS MGMT CLASS [id number] Diagnos is: ICD-10- CM F43.12 Post-tr aumatic stress disorde r, chronic LAZ SALCEDO AN 03/04 [facility] GROUP PSYCHOTHER APY [id number] Diagnos is: ICD-10- CM G62.9 Polyneu ropathy , unspeci lance LAZ SALCEDO AN 03/11 [facility] Out[facility] Encounter [id number] 03/11 [facility] Encounter [id number] 03/13 [facility] STRESS MGMT CLASS [id number] Diagnos is: ICD-10- CM F34.9 Persist ent mood [affect evie] disorde r, unspeci shaistaLAZ Garcia AN 03/18 [facility] STRESS MGMT CLASS [id number] Diagnos is: ICD-10- CM F34.9 Persist ent mood [affect evie] disorde r, unspeci lance LAZ SALCEDO AN 03/25 [facility] PSYTX W PT 45 MINUTES [id number] Diagnos is: ICD-10- CM F34.9 Persist ent mood [affect evie] disorde r, unspeci HEATHER August 03/30 [facility] OFFICE O/P EST MOD 30 MIN [id number] Diagnos is: ICD-10- CM F34.9 Persist ent mood [affect evie] disorde r, unspeci firoberto carlos PIERRE,JE SSICA E 03/30 [facility] STRESS MGMT CLASS [id number] Diagnos is: ICD-10- CM F43.12 Post-tr aumatic stress disorde r, chronic DENISSE,LAZ AN 04/01 [facility] STRESS MGMT CLASS [id number] Diagnos is: ICD-10- CM F43.12 Post-tr aumatic stress disorde r, chronic DENISSE,LAZ AN 04/08 [facility] PSYTX W PT 45 MINUTES [id number] Diagnos is: ICD-10- CM F43.12 Post-tr aumatic stress disorde r, chronic BETH,HEATHER A 04/13 [facility] STRESS MGMT CLASS [id number] Diagnos is: ICD-10- CM F43.12 Post-tr aumatic stress disorde r, chronic DENISSE,LAZ AN 04/15 [facility] OFF[facility] O/P EST MOD 30 MIN [id number] Diagnos is: ICD-10- CM G43.909 Migrain e, unsp, not intract able, without status migrain RAJI Vallejo IEL Y 04/20 [facility] En[facility] [id number] 04[facility]20 [facility] STRESS MGMT CLASS [id number] Diagnos is: ICD-10- CM F43.12 Post-tr aumatic stress disorde r, chronic DENISSE,LAZ AN 04/22 [facility] GROUP PSYCHOTHER APY [id number] Diagnos is: ICD-10- CM F43.12 Post-tr aumatic stress disorde r, chronic DENISSE,LAZ AN 04/29 [facility] PSYTX W PT 45 MINUTES [id number] Diagnos is: ICD-10- CM F43.12 Post-tr aumatic stress disorde r, chronic BETH,HEATHER A 05/04 [facility] GROUP PSYCHOTHER APY [id number] Diagnos is: ICD-10- CM F43.12 Post-tr aumatic stress disorde r, chronic DENISSE,LAZ AN 05/06 [facility] Out[facility] Encounter [id number] [facility] [place] OFFICE O/P EST LOW 20 MIN [id number] Diagnos is: ICD-10- CM L60.3 Nail dystrop hy ELPIDIO QUINTEROS F 05/14 [place] [facility] GROUP PSYCHOTHER APY [id number] Diagnos is: ICD-10- CM F43.12 Post-tr aumatic stress disorde r, chronic DENISSE,LAZ AN 05/20 [place] [facility] [place] [facility] PSYTX W PT 45 MINUTES [id number] Diagnos is: ICD-10- CM F43.12 Post-tr aumatic stress disorde r, chronic HEATHER CAMPOS A 05/25 [place] [facility] [place] [facility] Outpatient Encounter [id number] 05/25 [place] [facility] [facility] Social History Combined list of available smoking, tobacco, and other social history from Department of Defense and Veterans Affairs facilities. Social History Type Response Date Comment Sour e Tobacco smoking status NHIS VA-TOBACCO USE FORMER OTHER TYPE 03/30/2024 [place] [facility] [place] [facility] History of tobacco use [place]-TOBACCO USE FORMER CIGARETTES 03/30/2024 [place] [facility] [place] [facility] History of tobacco use [place]-TOBACCO FORMER USER 04/15/2023 [place] [facility] [place] [facility] History of tobacco use [place]-TOBACCO FORMER USER 04/24/2022 [place] [facility] [place] [facility] History of tobacco use [place]-TOBACCO FORMER USER 04/27/2021 [place] [facility] [place] [facility] History of tobacco use [place]-TOBACCO QUIT 15 YRS OR MORE 03/17/2020 [place] [facility] [place] [facility] History of tobacco use [place]-TOBACCO QUIT 15 YRS OR MORE 03/31/2019 [place] [facility] [place] [facility] Plan of Care List of future care activities from Department of Veterans Affairs facilities. Additional future care activities may be listed in the Assessment and Plan section. Date/Time Care Activity Care Activity Detail Facili ty 06/01/2024 AMBULATORY - PSYCHIATRY AM[place]ATORY [place] PS[place]C [place]ATRY [place] [facility] [place] [facility]
--- OUTSIDE RECORDS SUMMARY | 2024-06-01 10:57 | XMS_ITS | Encounter Summary ---
Author Name [facility] [place] [facility] [place] [place] Address [address] [place] [address] Care Team Providers Care Gold Prospector Name Role Phone JOSE MANUEL PITT Primary [...] SUPPL EMENT A Feb 18, 2022 SUPP1 [id number] GINA DE LA ROSA PATIENT [facility] MED PREFER/SEN IOR CARE MEDICARE SUPPLEMEN BETY MEDIC ARE SUPPL EMENT A Feb 18, 2021 SUPP1 [id number] [phone] GINA DE LA ROSA PATIENT Selected Encounter This section includes the information on record at [place] for the Encounter. Date/Time Encounter Type Encounter Description Reason Provider Source Jul 29, 2023 08:30 AM OFFICE O/P EST MOD 30 MIN PRIMARY CARE/MEDICINE ICD-10-CM N18.9 Chronic kidney disease, unspecified JOSE MANUEL PITT Rocio Encounter Template Text not used by [place] Assessments - Encounter Diagnoses This section includes the primary and secondary diagnoses documented for the Encounter. Date/Time Primary/Secondary Diagnosis Diagnosis Name Provider Source Mar 26, 2024 11:29 AM PRIMARY Chronic kidney disease, unspecified JOSE MANUEL PITT [facility] [place] [facility] Mar 26, 2024 11:29 AM SECONDARY Migraine, unsp, not intractable, without status migrainosus SWEETIEJOSE MANUEL DSOUZA [facility] [place] [facility] Mar 26, 2024 11:29 AM SECONDARY Pain in left hip SWEETIEJOSE MANUEL [facility] [place] [facility] Mar 26, 2024 11:29 AM SECONDARY Pain in unspecified foot SWEETIEJOSE MANUEL [facility] [place] [facility] Mar 26, 2024 11:29 AM SECONDARY Psych & behavrl factors assoc w disord or dis classd elswhr SWEETIEJOSE MANUEL DSOUZA [place] [facility] [place] [facility] Plan of Treatment: Future Appointments (+ 6 months) and Future Tests (+/- 45 days) The Plan of Treatment section includes future care activities for the patient from all [place] treatmentfacilities. This section includes future appointments and future orders which are active, pending or scheduled. Future Appointments This section includes appointments that were scheduled to occur 6 months from the date of the Encounter, up to a maximum of 20 appointments. The data comes from all [place] treatment facilities. Appointment Date/Time Appointment Type Appointme nt Facility Name Aug 21, 2023 10:00 AM AMBULATORY - MEDICINE [facility] Sep 02, 2023 07:00 AM AMBULATORY - PS[facility]CHIATRY [facility] [place] [facility] Sep 09, 2023 05:00 PM AMBULATORY - PSYCHIATRY [facility] [place] [facility] Sep 11, 2023 09:00 AM AMBULATORY - PS[facility]CHIATRY [facility] [place] [place] [facility] Sep 19, 2023 01:30 PM AMBULATORY - PS[facility]CHIATRY [facility] [place] [facility] Sep 25, 2023 09:00 AM AMBULATORY - PS[facility]CHIATRY [facility] [place] [place] [facility] Sep 30, 2023 07:00 AM AMBULATORY - PS[facility]CHIATRY [facility] [place] [facility] Oct 02, 2023 09:00 AM AMBULATORY - PS[facility]CHIATRY [facility] [place] [place] [facility] Oct 09, 2023 09:00 AM AMBULATORY - [facility]IATRY [facility] [place] [place] [facility] Oct 16, 2023 09:00 AM AMBULATORY - PS[facility]CHIATRY [facility] [place] [place] [facility] Oct 23, 2023 09:00 AM AMBULATORY - PS[facility]CHIATRY [facility] [place] [place] [facility] Oct 28, 2023 07:00 AM AMBULATORY - PS[facility]CHIATRY [facility] [place] [facility] Oct 28, 2023 08:00 AM AMBULATORY - NEUROLOGY [facility] [place] [place] [facility] Oct 28, 2023 09:30 AM AMBULATORY - PS[facility]CHIATRY [facility] [place] [place] [facility] Oct 30, 2023 09:00 AM AMBULATORY - PS[facility]CHIATRY [facility] [place] [place] [facility] Nov 06, 2023 09:00 AM AMBULATORY - PS[facility]CHIATRY [facility] [place] [place] [facility] Nov 13, 2023 09:00 AM AMBULATORY - [place]CHIATRY [place] [facility] [place] [facility] Nov 19, 2023 07:00 AM AMBULATORY - PS[facility]CHIATRY [facility] [place] [place] [facility] Nov 20, 2023 09:00 AM AMBULATORY - PS[facility]CHIATRY [facility] [place] [place] [facility] Nov 27, 2023 09[facility]00 AM [facility] [facility] Vital Signs: All taken on the encounter date This section contains inpatient and outpatient Vital Signs collected on the date of the Encounter. Date/Time Temperature Pulse Blood Pressure Respiratory Rate SP02 Pain Height Weight Body Mass Index Source Jul 29, 2023 08:13 AM 98 80 162/82 16 97 8 71 246.4 34 [facility] Social History: Smoking Status (Most current) and Tobacco Use (All prior to encounter date) This section includes the most current, and the historical, smoking and tobacco- related health factors from the [place] facility where the Encounter took place. Current Smoking Status This section includes the most current smoking, or tobacco-related health factor, from the [place] facility where the Encounter took place. Date/Time Current Smoking Status Lee Ann ko Apr 15, 2023 07:00 AM [facility] Tobacco Use History This section includes a history of the smoking, or tobacco-related health factors, that were collected on or before the date of the Encounter. The data comes from the [place] facility where the Encounter took place. Date/Time Smoking Status/Tobacco Use Comment F acility Apr 15, 2023 07:00 AM VA-TOBACCO QUIT 15 YRS OR MORE [facility] [place] [facility] Apr 24, 2022 07:00 AM VA-TOBACCO FORMER USER [facility] [place] [facility] Apr 24, 2022 07:00 AM VA-TOBACCO QUIT 15 YRS OR MORE [facility] [place] [place] [facility] Apr 27, 2021 03:00 PM VA-TOBACCO FORMER USER [facility] [place] [facility] Apr 27, 2021 03:00 PM VA-TOBACCO QUIT 15 YRS OR MORE [facility] [place] [facility] Mar 17, 2020 03:00 PM VA-TOBACCO FORMER USER [facility] [place] [facility] Mar 17, 2020 03:00 PM VA-TOBACCO QUIT 15 YRS OR MORE [facility] [place] [facility] Mar 31, 2019 09:04 AM VA-TOBACCO FORMER USER [facility] [place] [facility] Mar 31, 2019 09:04 AM VA-TOBACCO QUIT 15 YRS OR MORE [facility] [place] [facility] Encounter Notes: All associated encounter [...] has h/o Thoracic post-laminectomy syndrome Migraines Dr Theresa belle seems to help PMH: Active problems - Computerized Problem List is the source for the followin. Cognitive disorder 2. Hypoglycaemia 3. Mood disorder 4. Migraine 5. Hemiparesis 6. Polyneuropathy 7. Posttraumatic stress disorder 8. 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 Hypertension NON [place] records 12/03/2018 - DR SAINI 10. DM - Diabetes mellitus 11. Gastro-esophageal reflux NON [place] records 12/03/2018 - DR SAINI 12. Chronic renal disease Mild CKD and minimal proteinuria due to DM and obesity 13. History of lacunar cerebrovascular accident NON [place] records 12/03/2018 - DR SAINI per pt report - neurology does not support dx 14. Thoracic post-laminectomy syndrome NON [place] records 12/03/2018 - DR SAINI 15. History [...] hx bleeding ulder - last 12/2018 NON [facility] cardiology dr TA - 04/2018 NON VA PCP - [facility] med pract - DR BRAVO SAINI - [phone] Neuro surgeon - DR VELA ( back neuro stim) - [facility] Allergies: METFORMIN The following VA and Non-VA [...] of active outpatient prescriptions dispensed from this [place] (local) and dispensed from another VA or [...] longer following with off-site PCP, please call commercial front load driver to schedule sooner appt with VA PCP. /ADILENE Maddox Nurse Practitioner Signed: 07/29/2023 10:08 JOSE MANUEL PITT [place] [facility] Jul 29, 2023 08:16 AM PREVENTIVE [...] Information Source: FROM OTHER REGISTRY Comment: [employer] [employer] Advance Directive Screen AD: Patient has an up-to-date Advance Directive at an outside, non-va facility and was asked to forward a copy to his/her clinician. Comment: will bring a copy at next appointment /nicole/ ZORAIDA SCHWARTZ LPN LPN Signed: 07/29/2023 08:27 ZORAIDA SCHWARZT [place] [facility]
--- OUTSIDE RECORDS SUMMARY | 2024-06-01 10:57 | XMS_ITS | Encounter Summary ---
Author Name [facility] [place] [facility] [place] Address [address] [place] [address] Care Team Providers Care Roll Scale Worker Name Role Phone JOSE MANUEL PITT Primary [...] Name Patient's Relationship to Policy [facility] HEALTH PLAN MEDICARE SUPPLEMEN BETY MEDIC ARE SUPPL EMENT A Feb 18, 2022 SUPP1 [id number] [phone] GINA DE LA ROSA PATIENT [facility] MED PREFER/SEN IOR CARE MEDICARE SUPPLEMEN BETY MEDIC ARE SUPPL EMENT A Feb 18, 2021 SUPP1 [id number] GINA DE LA ROSA PATIENT Selected Encounter This section includes the information on record at [place] for the Encounter. Date/Time Encounter Type Encounter Description Reason Provider Source Jul 29, 2023 07:00 AM PSYTX W PT 45 MINUTES [facility] - IND ICD-10-CM F43.12 Post-traumatic stress disorder, chronic HEATHER PADILLA Encounter Template Text not used by [place] Assessments - Encounter Diagnoses This section includes the primary and secondary diagnoses documented for the Encounter. Date/Time Primary/Secondary Diagnosis Diagnosis Name Provider Source Jul 29, 2023 07:52 AM PRIMARY Post-traumatic stress disorder, chronic HEATHER PADILLA [place] [facility] [place] [facility] Jul 29, 2023 07:52 AM SECONDARY Persistent mood [affective] disorder, unspecified HEATHER PADILLA [place] [facility] [place] [facility] Jul 29, 2023 07:52 AM SECONDARY Unsp symptoms and signs w cognitive functions and awareness HEATHER PADILLA [place] [facility] [place] [facility] Plan of Treatment: Future Appointments (+ 6 months) and Future Tests (+/- 45 days) The Plan of Treatment section includes future care activities for the patient [facility] This section includes future appointments and future orders which are active, pending or scheduled. Future Appointments This section includes appointments that were scheduled to occur 6 months from the date of the Encounter, up to a maximum of 20 appointments. The data comes from all [place] treatment facilities. Appointment Date/Time Appointment Type Appointme nt Facility Name Aug 21, 2023 10:00 AM AMBULATORY - MEDICINE [facility] Sep 02, 2023 07:00 AM AMBULATORY - PS[place]CHIATRY [place] [facility] [place] [facility] Sep 09, 2023 05:00 PM AMBULATORY - PS[place]CHIATRY [place] [facility] [place] [facility] Sep 11, 2023 09:00 AM AMBULATORY - [facility]IATRY [facility] [place] [facility] Sep 19, 2023 01:30 PM AMBULATORY - PS[facility]CHIATRY [facility] [place] [facility] Sep 25, 2023 09:00 AM AMBULATORY - PS[facility]CHIATRY [facility] [place] [facility] Sep 30, 2023 07:00 AM AMBULATORY - PS[facility]CHIATRY [facility] [place] [facility] Oct 02, 2023 09:00 AM AMBULATORY - PS[facility]CHIATRY [facility] [place] [facility] Oct 09, 2023 09:00 AM AMBULATORY - PS[facility]CHIATRY [facility] [facility] Oct 16, 2023 09:00 AM AMBULATORY - PS[facility]CHIATRY [facility] [place] [facility] Oct 23, 2023 09:00 AM AMBULATORY - PSYCHIATRY [facility] [place] [facility] Oct 28, 2023 07:00 AM AMBULATORY - PS[place]CHIATRY [place] [facility] [place] [facility] Oct 28, 2023 08:00 AM AMBULATORY - NEUROLOGY [place] [facility] [place] [facility] Oct 28, 2023 09:30 AM AMBULATORY - PS[facility]CHIATRY [facility] [place] [facility] Oct 30, 2023 09:00 AM AMBULATORY - PSYCHIATRY [facility] [place] [facility] Nov 06, 2023 09:00 AM AMBULATORY - PS[place]CHIATRY [place] [facility] [place] [facility] Nov 13, 2023 09:00 AM AMBULATORY - PS[place]CHIATRY [place] [facility] [place] [facility] Nov 19, 2023 07:00 AM AMBULATORY - PS[place]CHIATRY [place] [facility] [place] [facility] Nov 20, 2023 09:00 AM AMBULATORY - PSYCHIATRY [place] [facility] [place] [facility] Nov 27, 2023 09:00 AM [facility] [place] [facility] Vital Signs: All taken on the encounter date This section contains inpatient and outpatient Vital Signs collected on the date of the Encounter. Date/Time Temperature Pulse Blood Pressure Respiratory Rate SP02 Pain Height Weight Body Mass Index Source Jul 29, 2023 08:13 AM 98 80 162/82 16 97 8 71 246.4 34 [facility] Social History: Smoking Status (Most current) and Tobacco Use (All prior to encounter date) This section includes the most current, and the historical, smoking and tobacco- related health factors from the [place] facility where the Encounter took place. Current Smoking Status This section includes the most current smoking, or tobacco-related health factor, from the [place] facility where the Encounter took place. Date/Time Current Smoking Status Comment Nurys ko Apr 15, 2023 07:00 AM VA-TOBACCO FOR[facility]ER [facility] Tobacco Use History This section includes a history of the smoking, or tobacco-related health factors, that were collected on or before the date of the Encounter. The data comes from the [place] facility where the Encounter took place. Date/Time Smoking Status/Tobacco Use Comment F jodie Apr 15, 2023 07:00 AM VA-TOBACCO QUIT 15 YRS OR MORE [facility] [place] [facility] Apr 24, 2022 07:00 AM [facility]BACCO [facility] [place] [facility] Apr 24, 2022 07:00 AM VA-TOBACCO QUIT 15 YRS OR MORE [facility] [place] [facility] Apr 27, 2021 03:00 PM VA-TOBACCO FORMER USER [facility] [place] [facility] Apr 27, 2021 03:00 PM VA-TOBACCO QUIT 15 YRS OR MORE [facility] [place] [facility] Mar 17, 2020 03:00 PM VA-TOBACCO FORMER USER [facility] [facility] Mar 17, 2020 03:00 PM VA-TOBACCO QUIT 15 YRS OR MORE [facility] [place] [facility] Mar 31, 2019 09:04 AM VA-TOBACCO FORMER USER [facility] [facility] Mar 31, 2019 09:04 AM VA-TOBACCO QUIT 15 YRS OR MORE [facility] [place] [facility] Encounter Notes: All associated encounter notes [...] Jul, @ 07:00 - BETH/SHARAN/DANIEL/BETH PFEIFFER MH AIR HOIST OPERATOR: HEATHER PADILLA / FELICITY Egan TEAM MEMBERS: HEATHER PADILLA: PSYCHOLOGIST SALLY PIERRE: PSYCHIATRIST RISK ASSESSMENT (DANGER TO SELF AND OTHERS): Low risk to self or others DISCHARGE PLANNING/CRITERIA: Treating Specialty: [facility] [place] successfully completed treatment goals [place] utilizes effective coping skills MENTAL HEALTH DIAGNOSES [...] 2 months for 1 year Treating Specialty: [facility] Renewal Date: 08/20/2024 Entered Treatment: [...] PROBLEM: This was referred to the [employer] [employer] ([facility]) program by their provider for PTSD, depression, and sleep disorder. Comments: No longer in this treament 08/21/2023 (by HEATHER PADILLA) RESOLVED GOAL: To provide a research-based meditation program for to reduce mental health symptoms and to enhance well-being. Comments: Resolved by resolving problem. 08/21/2023 (by HEATHER PADILLA) RESOLVED OBJECTIVE: [place] experientially will learn iRest. Comments: Resolved by [...] 11:49 /nicole/ SALLY PIERRE PSYCHIATRIST HEATHER PADILLA [place] [facility] [facility] Jul 29, 2023 06:49 AM PSYCHOLOGY NOTE: [...] Staff Psychologist Signed: 07/29/2023 07:53 HEATHER PADILLA [facility]
--- OUTSIDE RECORDS SUMMARY | 2024-06-01 10:57 | XMS_ITS ---
Author Name [facility] [place] [facility] [place] Address [address] [place] [address] Care Team Providers Care Magistrate Assistant Name Role Phone JOSE MANUEL PITT [...] SUPPL EMENT A Feb 18, 2022 SUPP1 [id number] GINA DE LA ROSA [facility]SEN IOR CARE MEDICARE SUPPLEMEN BETY MEDIC ARE SUPPL EMENT A Feb 18, 2021 SUPP1 [id number] [phone] GINA DE LA ROSA PATIENT Selected [...] chronic MOISES PADILLA [place] [facility] [place] [facility] Jan 14, 2024 07:53 AM SECONDARY Cerebral infarction, unspecified MOISES PADILL[place] [facility] [facility] Jan 14, 2024 07:53 AM SECONDARY Persistent mood [affective] disorder, unspecified [place] [facility] [facility] Jan 14, 2024 07:53 AM SECONDARY Unsp symptoms and signs w cognitive functions and awareness BETHMOISES Williamson [place] [facility] [facility] [place] [facility] Plan of Treatment: Future Appointments (+ 6 months) and Future Tests (+/- 45 days) The Plan of Treatment section includes future care activities for the patient from all [place] [facility]. This section includes future appointments and [...] AMBULATORY - NEUROLOGY [place] [facility] [place] [facility] Jan 22, 2024 09:00 AM AMBULATORY - PSYCHIATRY [place] [facility] [place] [facility] Jan 27, 2024 01:30 PM AMBULATORY - PSYCHIATRY [place] [facility] [place] [place] [facility] Jan 29, 2024 09:00 AM AMBULATORY - PSYCHIATRY [place] [facility] [place] [facility] Feb 05, 2024 09:00 AM AMBULATORY - PSYCHIATRY [place] [facility] [facility] Feb 10, 2024 07:00 AM AMBULATORY - PSYCHIATRY [place] [facility] [place] [facility] Feb 24, 2024 07:00 AM AMBULATORY - PSYCHIATRY [place] [facility] [place] [facility] Mar 04, 2024 09:00 AM AMBULATORY - PSYCHIATRY [place] [facility] [place] [place] [facility] Mar 11, 2024 09:00 AM AMBULATORY - PSYCHIATRY [place] [facility] [place] [facility] Mar 18, 2024 09:00 AM AMBULATORY - PSYCHIATRY [place] [facility] [place] [facility] Mar 25, 2024 09:00 AM AMBULATORY - [...] AMBULATORY - PSYCHIATRY [place] [facility] [place] [facility] Lab Results: +/- 30 days of the [...] Type Comment Dec 19, 2023 07:55 AM [facility] FOLATE (WROX) SERUM Specimen Type: SERUM No comment entered. Ordering Provider: SALLY STANFORD Report Released Date/Time: Oct 28, 2023 09:59 AM Reporting Lab: [facility] [place] [facility] [address] [address] Performing Lab: [facility] [place] [facility] [address] [address] FOLATE (WROX) 9.07 ng/mL >5.2 Dec 19, 2023 07:55 AM [facility] TSH SERUM Specimen Type: SERUM No comment entered. Ordering Provider: SALLY STANFORD Report Released Date/Time: Oct 28, 2023 09:59 AM Reporting Lab: [facility] [address] [address] Performing Lab: [facility]ITAL[facility]N [facility]ENTERUSE[address] [address] TSH 1.09 u[IU]/mL 0.35-5.00 Dec 19, 2023 07:55 AM [facility] VITAMIN B12 SERUM Specimen Type: SERUM No comment entered. Ordering Provider: SALLY STANFORD Report Released Date/Time: Oct 28, 2023 09:59 AM Reporting Lab: [facility] [address] [address] Performing Lab: [facility] [address] [address] VITAMIN B12 297 pg/mL 200-900 Dec 19, 2023 07:55 AM [facility] VITAMIN D (25-[place]) SERUM Specimen Type: SERUM No comment entered. Ordering Provider: SALLY STANFORD Report Released Date/Time: Oct 28, 2023 09:59 AM Reporting Lab: [facility] [address] [address] Performing Lab: [facility]ITAL[facility]UN[facility] SYSTEMN [address] [address] VITAMIN D (25-[place]) 38 ng/mL 20-50 Dec 19, 2023 07:55 AM [facility] LIPID PANEL FASTING SERUM Specimen Type: SERU M No comment entered. Ordering Provider: SALLY STANFORD Report Released Date/Time: Dec 16, 2023 09:50 AM Reporting Lab: [facility] [address] [address] Performing Lab: [facility]ITALRHUN[facility] SYSTEMN [address] [address] CHOLESTEROL 113 mg/dL TRIGLYCERIDE 85 mg/dL 0-150 LDL calculated 50 mg/dL 0-129 CHOL/HDL 2.5 HDL CHOLESTEROL 46 mg/dL 40-60 Dec 19, 2023 07:55 AM [facility] HEMOGLOBIN A1C PANEL BLOOD Specimen [...] Dec 16, 2023 09:50 AM Reporting Lab: [address] [address] Performing Lab: [address] [address] HEMOGLOBIN A1C 5.5 4.0-5.6 Dec 19, 2023 07:55 AM [facility] BASIC METABOLIC PANEL (fasting) SERUM Specime n Type: SERUM No comment entered. Ordering Provider: SALLY STANFORD Report Released Date/Time: Dec 16, 2023 09:50 AM Reporting Lab: [facility] [address] [address] Performing Lab: [address] [address] UREA NITROGEN 18 mg/dL 7-25 GLUCOSE 117 [...] 15, 2023 07:00 AM VA-TOBACCO FORMER USER [facility] Tobacco Use History This section includes a history of the smoking, or tobacco-related health factors, that were collected on or before the date of the Encounter. The data comes from the [place] facility where the Encounter took place. Date/Time Smoking Status/Tobacco Use Comment F acility Apr 15, 2023 07:00 AM VA-TOBACCO QUIT 15 YRS OR MORE [place] [facility] [place] [facility] Apr 24, 2022 07:00 AM VA-TOBACCO FORMER USER [place] [facility] [place] [facility] Apr 24, 2022 07:00 AM VA-TOBACCO QUIT 15 YRS OR MORE [place] [facility] [facility] Apr 27, 2021 03:00 PM VA-TOBACCO FORMER USER [place] [facility] [place] [facility] Apr 27, 2021 03:00 PM VA-TOBACCO QUIT 15 YRS OR MORE [place] [facility] [facility] Mar 17, 2020 03:00 PM VA-TOBACCO FORMER USER [place] [facility] [place] [facility] Mar 17, 2020 03:00 PM VA-TOBACCO QUIT 15 YRS OR MORE [place] [facility] [place] [facility] Mar 31, 2019 09:04 AM VA-TOBACCO FORMER USER [place] [facility] [facility] Mar 31, 2019 09:04 AM VA-TOBACCO QUIT 15 YRS OR MORE [place] [facility] [place] [facility] Encounter Notes: All associated encounter notes This section contains the clinical notes associated to the Encounter. Date/Time Encounter Note(s) Provider Source Jan 14, 2024 06:54 AM PSYCHOLOGY NOTE: LOCAL TITLE: PSYCHOLOGY NOTE STANDARD TITLE: PSYCHOLOGY NOTE DATE OF NOTE: JAN 14, 2024@06:54 ENTRY DATE: JAN 14, 2024@06:55:03 AUTHOR: MOISES PADILLA COSIGNER: URGENCY: STATUS: COMPLETED [place] was identified by Visual recognition and patient [...] 2mg and I feel totally different . Aury presented today as high energy and euphoric. He described that he has resumed talking ambitious hobbies and projects, seeing them through to completion. This provider cautioned him about finding a middle ground that is realistic and sustainable. When asked about sleep did admit that his sleep has been [...] meals to Veterans for free at their latter-day. ASSESSMENT: BRIEF ASSESSMENT OF MENTAL STATUS: 1. [...] Psychologist Signed: 01/14/2024 07:55 [facility]
--- OUTSIDE RECORDS SUMMARY | 2024-06-01 10:58 | XMS_ITS | Encounter Summary ---
Author Name [facility] [place] [facility] [place] [facility] [place] Address [address] [place] [address] Care Team Providers Care Sheriff Officer Name Role Phone JOSE MANUEL PITT [...] SUPPL EMENT A Feb 18, 2022 SUPP1 [id number] [phone] GINA DE LA ROSA PATIENT [facility] MED PREFER/SEN IOR CARE MEDICARE SUPPLEMEN BETY MEDIC ARE SUPPL EMENT A Feb 18, 2021 SUPP1 [id number] [phone] GINA DE LA ROSA PATIENT Selected Encounter This section includes the information on record at [place] for the Encounter. Date/Time Encounter Type Encounter Description Reason Provider Source Jun 10, 2023 07:00 AM PSYTX W PT 45 [facility]UTES [facility] - IND ICD-10-CM F43.12 Post-traumatic stress disorder, chronic MOISES PADILLA Encounter Template Text not used by [place] Assessments - Encounter Diagnoses This section includes the primary and secondary diagnoses documented for the Encounter. Date/Time Primary/Secondary Diagnosis Diagnosis Name Provider Source Jun 10, 2023 07:56 AM PRIMARY Post-traumatic stress disorder, chronic MOISES PADILLA [place] [facility] [facility] Jun 10, 2023 07:56 AM SECONDARY Cerebral infarction, unspecified MOISES PADILLA [place] [facility] [place] [facility] Jun 10, 2023 07:56 AM SECONDARY Persistent mood [affective] disorder, unspecified MOISES PADILLA [place] [facility] [place] [facility] Jun 10, 2023 07:56 AM SECONDARY Unsp symptoms and signs w cognitive functions and awareness MOISES PADILLA [place] [facility] [place] [facility] Plan of Treatment: Future Appointments (+ [...] REHAB MEDICIN E [place] [facility] [place] [facility] July 08, 2023 07:00 AM AMBULATORY - PSYCHIATRY [place] [facility] [place] [facility] Jul 22, 2023 07:00 AM AMBULATORY - PSYCHIATRY [place] [facility] [place] [facility] Jul 22, 2023 08:00 AM AMBULATORY - NEUROLOGY [place] [facility] [place] [facility] Jul 25, 2023 01:30 PM AMBULATORY - PSYCHIATRY [place] [facility] [place] [place] [facility] Jul 29, 2023 07:00 AM AMBULATORY - PSYCHIATRY [place] [facility] [facility] Jul 29, 2023 08:30 AM AMBULATORY - MEDICINE [place] [facility] Aug 21, 2023 10:00 AM AMBULATORY - MEDICINE [facility] Sep 02, 2023 07:00 AM AMBULATORY - PSYCHIATRY [place] [facility] [place] [facility] Sep 09, 2023 05:00 PM AMBULATORY - PSYCHIATRY [place] [facility] [place] [facility] Sep 11, 2023 09:00 AM AMBULATORY - PSYCHIATRY [place] [facility] [place] [facility] Sep 19, 2023 01:30 PM AMBULATORY - PSYCHIATRY [place] [facility] [place] [facility] Sep 25, 2023 09:00 AM AMBULATORY - PSYCHIATRY [place] [facility] [place] [facility] Sep 30, 2023 07:00 AM AMBULATORY - PSYCHIATRY [place] [facility] [place] [facility] Oct 02, 2023 09:00 AM AMBULATORY - PSYCHIATRY [place] [facility] [place] [facility] Oct 09, 2023 09:00 AM AMBULATORY - PSYCHIATRY [place] [facility] [place] [facility] Oct 16, 2023 09:00 AM AMBULATORY - PSYCHIATRY [place] [facility] [place] [facility] Oct 23, 2023 09:00 AM AMBULATORY - PSYCHIATRY [place] [facility] [place] [facility] Oct 28, 2023 07:00 AM AMBULATORY - PSYCHIATRY [place] [facility] [place] [facility] Oct 28, 2023 08:00 AM AMBULATORY - NEUROLOGY [place] [facility] [place] [facility] Social History: Smoking Status (Most current) [...] 2023 07:00 AM VA-TOBACCO [facility] Tobacco Use History This section includes a history of the smoking, or tobacco-related health factors, that were collected on or before the date of the Encounter. The data comes from the [place] facility where the Encounter took place. Date/Time Smoking Status/Tobacco Use Comment F acility Apr 15, 2023 07:00 AM VA-TOBACCO QUIT 15 YRS OR MORE [place] [facility] [place] [facility] Apr 24, 2022 07:00 AM VA-TOBACCO FORMER USER [place] [facility] [facility] Apr 24, 2022 07:00 AM VA-TOBACCO QUIT 15 YRS OR MORE [place] [facility] [place] [facility] Apr 27, 2021 03:00 PM VA-TOBACCO FORMER USER [place] [facility] [place] [facility] Apr 27, 2021 03:00 PM VA-TOBACCO QUIT 15 YRS OR MORE [place] [facility] [place] [facility] Mar 17, 2020 03:00 PM VA-TOBACCO FORMER USER [place] [facility] [place] [facility] Mar 17, 2020 03:00 PM VA-TOBACCO QUIT 15 YRS OR MORE [place] [facility] [place] [facility] Mar 31, 2019 09:04 AM VA-TOBACCO FORMER USER [place] [facility] [facility] Mar 31, 2019 09:04 AM VA-TOBACCO QUIT 15 YRS OR MORE [place] [facility] [place] [facility] Encounter Notes: All associated encounter notes [...] (History of) Cerebral Infarction, Unspecified PRESENTING PROBLEMS: Cumberland presented on time and re-engaged in treatment as usual. SESSION FOCUS: Cumberland shared more about a number of different home improvement projects that they have resumed. This time, he reportedly is becoming less involved so he doesn't injure himself. We spoke about the lessons he has learned in the regard, over the past year +. Cumberland was encouraged to discuss more about how his communication with Carlyn has gone, through this potentially stressful process. They seem to be better about expressing their intentions/standards, which leads to less surprise and subsequent argument. However, the two still tend to disagree about how much to spend. Cumberland reports that he is often pumping the [...] Staff Psychologist Signed: 06/10/2023 07:58 MOISES PADILLA [place] [facility]
--- OUTSIDE RECORDS SUMMARY | 2024-06-01 10:58 | XMS_ITS | Encounter Summary ---
Author Name [facility] [place] ([place]) Organization [facility] Address [address] [place] [address] Care Team Providers Care Insurance Billing Clerk Name Role Phone JOSE MANUEL PITT [...] Burgess's Name Patient's Relationship to Policy Burgess [facility] PLAN MEDICARE SUPPLEMEN BETY MEDIC ARE SUPPL EMENT A Feb 18, 2022 SUPP1 [id number] GINA DE LA ROSA PATIENT [facility] MED PREFER/SEN IOR CARE MEDICARE SUPPLEMEN BETY MEDIC ARE SUPPL EMENT A Feb 18, 2021 SUPP1 [id number] GINA DE LA ROSA PATIENT Selected [...] chronic MARIALUISA SALCEDO [place] [facility] [facility] Plan of Treatment: Future Appointments (+ 6 months) and Future Tests (+/- 45 days) The Plan of Treatment section includes future care activities for the patient from all [place] [facility]. This section includes future appointments and [...] AMBULATORY - PSYCHIATRY [place] [facility] [place] [facility] Apr 15, 2024 09:00 AM AMBULATORY - PSYCHIATRY [place] [facility] [place] [facility] Apr 20, 2024 09:00 AM AMBULATORY - NEUROLOGY [place] [facility] [place] [facility] Apr 22, 2024 09:00 AM AMBULATORY - PSYCHIATRY [place] [facility] [place] [place] [facility] Apr 29, 2024 09:00 AM AMBULATORY - PSYCHIATRY [place] [facility] [place] [place] [facility] May 04, 2024 07:00 AM AMBULATORY - PSYCHIATRY [place] [facility] [place] [facility] May 04, 2024 10:15 AM AMBULATORY - MEDICINE [place] [facility] [place] [facility] May 06, 2024 09:00 AM AMBULATORY - PSYCHIATRY [place] [facility] [place] [facility] May 14, 2024 09:30 AM AMBULATORY - MEDICINE [facility] May 20, 2024 09:00 AM AMBULATORY - PSYCHIATRY [place] [facility] [place] [facility] May 21, 2024 02:00 PM AMBULATORY - MEDICINE [place] [facility] [place] [facility] May 25, 2024 07:00 AM AMBULATORY - PSYCHIATRY [place] [facility] [place] [facility] Jun 01, 2024 01:00 PM AMBULATORY - PSYCHIATRY [place] [facility] [place] [facility] Jun 03, 2024 09:00 AM AMBULATORY - PSYCHIATRY [place] [facility] [place] [place] [facility] Jun 09, 2024 07:00 AM AMBULATORY - PSYCHIATRY [place] [facility] [place] [facility] Jun 10, 2024 09:00 AM AMBULATORY - PS[place]CHIATRY [place] [facility] [facility] June 22, 2024 07:00 AM AMBULATORY - PS[place]IATRY [place] [facility] [facility] July 06, 2024 07:00 AM AMBULATORY - PS[place]CHIATRY [place] [facility] [facility] Jul 20, 2024 09:00 AM AMBULATORY - NE[place]OLOGY [place] [facility] [place] [facility] Aug 03, 2024 08:30 AM AMBULATORY - [place]ICINE [place] [facility] Active, Pending, and Scheduled Orders This section includes a listing of several types of active, pending, and scheduled orders, including clinic medications orders, diagnostic test orders, procedure orders and consult orders; where thestart date of the order is 45 days before the date of the Encounter or 45 days after the date of the Encounter. The data comes from all [place] treatment facilities. Test Date/Time Test Type Test Details Facility Name Apr 27, 2024 12:00 AM Laboratory - Chemi stry Order OCCULT BLOOD FIT X1 SCREEN (MFP ONLY) STOOL FECES SP [facility] Social History: Smoking Status (Most [...] AM VA-TOBACCO USE FOR TYRONE OTHER TYPE [facility] Tobacco Use History This section includes a history of the smoking, or tobacco-related health factors, that were collected on or before the date of the Encounter. The data comes from the [place] facility where the Encounter took place. Date/Time Smoking Status/Tobacco Use Comment F acility Mar 30, 2024 07:00 AM VA-TOBACCO USE FOR TYRONE OTHER TYPE [place] [facility] [facility] Apr 15, 2023 07:00 AM VA-TOBACCO FORMER USER [place] [facility] Apr 15, 2023 07:00 AM VA-TOBACCO QUIT 15 YRS OR MORE [place] [facility] [facility] Apr 24, 2022 07:00 AM VA-TOBACCO FORMER USER [place] [facility] [place] [facility] Apr 24, 2022 07:00 AM VA-TOBACCO QUIT 15 YRS OR MORE [place] [facility] [place] [facility] Apr 27, 2021 03:00 PM VA-TOBACCO FORMER USER [place] [facility] [place] [facility] Apr 27, 2021 03:00 PM VA-TOBACCO QUIT 15 YRS OR MORE [place] [facility] [place] [facility] Mar 17, 2020 03:00 PM VA-TOBACCO FORMER USER [place] [facility] [place] [facility] Mar 17, 2020 03:00 PM VA-TOBACCO QUIT 15 YRS OR MORE [place] [facility] [place] [facility] Mar 31, 2019 09:04 AM VA-TOBACCO FORMER USER [place] [facility] [place] [facility] Mar 31, 2019 09:04 AM VA-TOBACCO QUIT 15 YRS OR MORE [place] [facility] [place] [facility] Encounter Notes: All associated encounter [...] 9 AM Number of group members: 15 Tire Servicer: Marialuisa Salcedo, [facility] Group began with a introduction that [...] and thoughts. Today's theme was on milind. Grimsley engaged with microelectronics assembler and group members appropriately, participating in the meditation and reflection time. did not endorse SI/HI. 's intention was to relax and experience milind. DIAGNOSES: Persistent mood disorder, unspecified PTSD, chronic Cognitive Disorder (History of) Cerebral Infarction, Unspecified [facility] Video Connect (VVC) Standard Documentation VVC Clinician Resources Only: E911 (Emergency Call Relay Center): [phone] National Veterans Crisis Line - 988 then press #1. [facility] Suicide Coordinator [phone], Ext. [phone]; Back-up Ext. [phone] [place] Police, BETH, Sangeeta [phone] Introduction: Visit is being conducted by [place] [employer] [facility]. identified with 2 identifiers: [X] Full Name [X] Date of [ ] VA ID Card Emergency Plan: Grimsley confirmed and/or provided the following information in case of emergency or technology failure. PATIENT PHONE - PHONE NUMBER [CELLULAR] - Is patient phone number correct, if not, enter below: Grimsley's phone number: TAJ DE LA ROSA [address], [place], [address] Grimsley's present location and address for appointment: his home 's emergency contact name and phone number: E-Cont.: JUVENCIO DE LA ROSA Relation Type: UNRELATED FRIEND/OTHER Relation Note: OTHERS [address] [place] [address] [facility] Grimsley reported that location is private and safe: Yes Informed Consent: Grimsley informed of the risks and benefits of Telehealth video care. Grimsley has the right to refuse video services. If refuses video visit, a rere-bl-[id number] visit will be scheduled. verbalized consent for this video visit: Yes Grimsley provided consent for any other persons present for visit: Yes If yes, who and relationship to patient:group Secure visit: Visit was locked for security and privacy:Yes /nicole/ REBECA CARABALLO Weigher Bulker Signed: 04/08/2024 10:22 MARIALUISA SALCEDO [place] [facility] [facility]
--- OUTSIDE RECORDS SUMMARY | 2024-06-01 10:58 | XMS_ITS | Encounter Summary ---
Author Name [facility] [place] Organization [place] Address [address] [place] [address] Care Team Providers Care Software Validation Engineer Name Role Phone JOSE MANUEL PITT [...] Burgess's Name Patient's Relationship to Policy Burgess [facility] HE[facility] PLAN MEDICARE SUPPLEMEN BETY MEDIC ARE SUPPL EMENT A Feb 18, 2022 SUPP1 [id number] [phone] GINA DE LA ROSA PATIENT [facility] MED PREFER/SEN IOR CARE MEDICARE SUPPLEMEN BETY MEDIC ARE SUPPL EMENT A Feb 18, 2021 SUPP1 [id number] GINA DE LA ROSA PATIENT Selected [...] PRIMARY Post-traumatic stress disorder, chronic MARIALUISA SALCEDO [place] [facility] [place] [facility] Plan of Treatment: Future Appointments (+ 6 months) and Future Tests (+/- 45 days) The Plan of Treatment section includes future care activities for the patient from all [place] treatmentfacilities. This section includes future appointments and [...] AMBULATORY - PSYCHIATRY [facility] [place] [facility] Jan 29, 2024 09:00 AM AMBULATORY - PSYCHIATRY [facility] [place] [facility] Feb 05, 2024 09:00 AM AMBULATORY - PSYCHIATRY [facility] [place] [facility] Feb 10, 2024 07:00 AM AMBULATORY - PSYCHIATRY [facility] [place] [facility] Feb 24, 2024 07:00 AM AMBULATORY - PSYCHIATRY [facility] [place] [facility] Mar 04, 2024 09:00 AM AMBULATORY - PSYCHIATRY [facility] [place] [facility] Mar 11, 2024 09:00 AM AMBULATORY - PSYCHIATRY [facility] [place] [facility] Mar 18, 2024 09:00 AM AMBULATORY - PSYCHIATRY [facility] [place] [facility] Mar 25, 2024 09:00 AM AMBULATORY - PSYCHIATRY [facility] [place] [facility] Mar 30, 2024 07:00 AM AMBULATORY - PSYCHIATRY [facility] [place] [facility] Mar 30, 2024 01:00 PM AMBULATORY - PSYCHIATRY [facility] [place] [facility] Apr 01, 2024 09:00 AM AMBULATORY - PS[facility]CHIATRY [facility] [place] [facility] Apr 08, 2024 09:00 AM AMBULATORY - PSYCHIATRY [facility] [place] [facility] Apr 13, 2024 07:00 AM AMBULATORY - PSYCHIATRY [facility] [place] [facility] Apr 15, 2024 09:00 AM AMBULATORY - PSYCHIATRY [facility] [place] [facility] Apr 20, 2024 09:00 AM AMBULATORY - NEUROLOGY [facility] [place] [facility] Apr 22, 2024 09:00 AM AMBULATORY - PSYCHIATRY [facility] [place] [facility] Apr 29, 2024 09:00 AM AMBULATORY - PSYCHIATRY [facility] [place] [facility] May 04, 2024 07:00 AM AMBULATORY - PSYCHIATRY [facility] [place] [facility] May 04, 2024 10:15 AM AMBULATORY - MEDICINE [facility] [place] [facility] Social History: Smoking Status (Most [...] 15, 2023 07:00 AM VA-TOBACCO FORMER USER [place] [facility] [place] [facility] Tobacco Use History This section includes a history of the smoking, or tobacco-related health factors, that were collected on or before the date of the Encounter. The data comes from the [place] facility where the Encounter took place. Date/Time Smoking Status/Tobacco Use Comment F acility Apr 15, 2023 07:00 AM VA-TOBACCO QUIT 15 YRS OR MORE [facility] [place] [facility] Apr 24, 2022 07:00 AM VA-TOBACCO FORMER USER [facility] [place] [facility] Apr 24, 2022 07:00 AM VA-TOBACCO QUIT 15 YRS OR MORE [facility] [place] [facility] Apr 27, 2021 03:00 PM VA-TOBACCO FORMER USER [facility] [place] [facility] Apr 27, 2021 03:00 PM VA-TOBACCO QUIT 15 YRS OR MORE [facility] [place] [facility] Mar 17, 2020 03:00 PM VA-TOBACCO FORMER USER [facility] [place] [facility] Mar 17, 2020 03:00 PM VA-TOBACCO QUIT 15 YRS OR MORE [facility] [place] [facility] Mar 31, 2019 09:04 AM VA-TOBACCO FORMER USER [facility] [place] [facility] Mar 31, 2019 09:04 AM VA-TOBACCO QUIT 15 YRS OR MORE [place] [facility] [place] [facility] Encounter Notes: All associated encounter [...] 9 AM Number of group members: 13 Washing Machine Repairer: Marialuisa Salcedo AGILE BUSINESS ANALYST Group began with a introduction that iRest [...] was on working with beliefs. engaged with supervising editor news reel and group members appropriately, participating in the meditation and reflection time. did not endorse SI/HI. [place]'s intention was to be calm and alert. DIAGNOSES: Persistent mood disorder, unspecified PTSD, chronic Cognitive Disorder (History of) Cerebral Infarction, Unspecified [place] [facility] [facility] (VVC) Standard Documentation VV Clinician Resources Only: E911 (Emergency Call Relay Center): [phone] National Veterans Crisis Line - 988 then press #1. BETH Suicide Coordinator [phone], Ext. ; Back-up Ext. [phone] BETH Avendaño [place] [phone] Introduction: Visit is being conducted by [employer]. identified with 2 identifiers: [X] Full Name [X] Date of [ ] VA ID Card Emergency Plan: confirmed and/or provided the following information in case of emergency or technology failure. PATIENT PHONE - PHONE NUMBER [CELLULAR] - Is patient phone number correct, if not, enter below: 's phone number: TAJ DE LA ROSA [address], [place], [address] [place]'s present location and address for appointment: his home [place]'s emergency contact name and phone number: E-Cont.: ESTRELLAJUVENCIO Relation Type: UNRELATED FRIEND/OTHER Relation Note: OTHERS [address] [place] [address] [facility] [place] reported that location is private and safe: Yes Informed Consent: informed of the risks and benefits of Telehealth video care. [place] has the right to refuse video services. If refuses video visit, a bzxy-bm-pkxo visit will be scheduled. verbalized consent for this video visit: Yes [place] provided consent for any other persons present for visit: Yes If yes, who and relationship to patient:group Secure visit: Visit was locked for security and privacy:Yes /nicole/ REBECA CARABALLO Lime Filter Operator Signed: 01/22/2024 10:34 MARIALUISA SALCEDO [facility]
--- OUTSIDE RECORDS SUMMARY | 2024-06-01 10:58 | XMS_ITS ---
Author Name [place] Address [address] [place] [address] Care Team Providers Care Nissan Sales Consultant Name Role Phone JOSE MANUEL PITT Primary [...] SUPPL EMENT A Feb 18, 2022 SUPP1 [id number] GINA DE LA ROSA PATIENT [facility] PREFER/SEN IOR CARE MEDICARE SUPPLEMEN BETY MEDIC ARE SUPPL EMENT A Feb 18, 2021 SUPP1 [id number] GINA DE LA ROSA PATIENT Selected Encounter This section includes the information on record at [place] for the Encounter. Date/Time Encounter Type Encounter Description Reason Provider Source Oct 28, 2023 09:30 AM OFFICE O/P EST HI 40 [facility] - IND ICD-10-CM F34.9 Persistent mood [affective] disorder, unspecified [facility] Encounter Template Text not used by [place] Assessments - Encounter Diagnoses This section includes the primary and secondary diagnoses documented for the Encounter. Date/Time Primary/Secondary Diagnosis Diagnosis Name Provider Source Oct 28, 2023 01:49 PM PRIMARY Persistent mood [affective] disorder, unspecified [facility] [place] [facility] [place] [facility] Oct 28, 2023 01:49 PM SECONDARY Post-traumatic stress disorder, chronic LACHELLE STANFORDGUY Teri Chan [place] [facility] [place] [facility] Oct 28, 2023 01:49 PM SECONDARY Unsp symptoms and signs w cognitive functions and awareness [facility] [place] [facility] [facility] Plan of Treatment: Future Appointments (+ 6 months) and Future Tests (+/- 45 days) The Plan of Treatment section includes future care activities for the patient from all [place] [facility]. This section includes future appointments and [...] [facility] [place] [facility] Nov 06, 2023 09:00 AM AMBULATORY - PSYCHIATRY [facility] [place] [facility] Nov 13, 2023 09:00 AM AMBULATORY - PSYCHIATRY [facility] [place] [facility] Nov 19, 2023 07:00 AM AMBULATORY - PSYCHIATRY [facility] [place] [facility] Nov 20, 2023 09:00 AM AMBULATORY - PSYCHIATRY [facility] [place] [facility] Nov 27, 2023 09:00 AM AMBULATORY - PSYCHIATRY [facility] [place] [facility] Dec 04, 2023 09:00 AM AMBULATORY - PSYCHIATRY [facility] [place] [facility] Dec 11, 2023 09:00 AM AMBULATORY - PSYCHIATRY [facility] [place] [facility] Dec 16, 2023 09:30 AM AMBULATORY - PSYCHIATRY [facility] [place] [facility] Dec 18, 2023 09:00 AM AMBULATORY - PSYCHIATRY [facility] [place] [facility] Dec 19, 2023 07:30 AM AMBULATORY - MEDICINE [facility] [place] [facility] Dec 23, 2023 07:00 AM AMBULATORY - PSYCHIATRY [facility] [place] [facility] Dec 25, 2023 09:00 AM AMBULATORY - PSYCHIATRY [facility] [place] [facility] Jan 01, 2024 09:00 AM AMBULATORY - PSYCHIATRY [facility] [place] [facility] Jan 08, 2024 09:00 AM AMBULATORY - PSYCHIATRY [facility] [place] [facility] Jan 09, 2024 09:30 AM AMBULATORY - MEDICINE [facility] [place] Jan 14, 2024 07:00 AM AMBULATORY - PSYCHIATRY [facility] [place] [facility] Jan 20, 2024 08:30 AM AMBULATORY - NEUROLOGY [facility] [place] [facility] Jan 22, 2024 09:00 AM AMBULATORY - PSYCHIATRY [place] [facility] [place] [facility] Jan 27, 2024 01:30 PM AMBULATORY - PSYCHIATRY [place] [facility] [place] [facility] Active, Pending, and Scheduled Orders This section [...] 02:36 PM Consult Order COMMUNITY CARE-UROLOGY Cons Sr. Director's Choice [facility] [place] [facility] Oct 28, 2023 01:47 PM Consult Order COMMUNITY CARE-NEUROLOGY Cons Sr. Director's Choice [facility] [place] [facility] Vital Signs: All taken on the encounter date This section contains inpatient and outpatient Vital Signs collected on the date of the Encounter. Date/Time Temperature Pulse Blood Pressure Respiratory Rate SP02 Pain Height Weight Body Mass Index Source Oct 28, 2023 08:15 AM 130/82 [place] [facility] [place] [place] [facility] Oct 28, 2023 07:58 AM 96 8 247 35 [place] [facility] [place] [facility] Oct 28, 2023 07:58 AM 64 148/88 20 [place] [facility] [place] [facility] Social History: Smoking Status (Most current) and Tobacco Use (All prior to encounter date) This section includes the most current, and the historical, smoking and tobacco- related health factors from the [place] facility where the Encounter took place. Current Smoking Status This section includes the most current smoking, or tobacco-related health factor, from the [place] facility where the Encounter took place. Date/Time Current Smoking Status Comment Nurys ko Apr 15, 2023 07:00 AM VA-TOBACCO FORMER USER [place] [facility] [place] [facility] Tobacco Use History This section includes a history of the smoking, or tobacco-related health factors, that were collected on or before the date of the Encounter. The data comes from the [place] facility where the Encounter took place. Date/Time Smoking Status/Tobacco Use Comment Rodney acshen Apr 15, 2023 07:00 AM VA-TOBACCO QUIT 15 YRS OR MORE [facility] [place] [facility] Apr 24, 2022 07:00 AM VA-TOBACCO FORMER USER [place] [facility] [place] [facility] Apr 24, 2022 07:00 AM VA-TOBACCO QUIT 15 YRS OR MORE [facility] [place] [facility] Apr 27, 2021 03:00 PM VA-TOBACCO FORMER USER [place] [facility] [place] [facility] Apr 27, 2021 03:00 PM VA-TOBACCO QUIT 15 YRS OR MORE [facility] [place] [facility] Mar 17, 2020 03:00 PM VA-TOBACCO FORMER USER [facility] [place] [facility] Mar 17, 2020 03:00 PM VA-TOBACCO QUIT 15 YRS OR MORE [facility] [place] [facility] Mar 31, 2019 09:04 AM VA-TOBACCO FORMER USER [facility] [place] [facility] Mar 31, 2019 09:04 AM VA-TOBACCO QUIT 15 YRS OR MORE [facility] [place] [facility] Encounter Notes: All associated encounter notes This [...] standard clinical care, and in accordance with [facility] policy. Patient information was shared with the PDMP [place]. No prescription(s) for controlled substances outside the VA were found in the last 90 days. /nicole/ SALLY STANFORD PSYCHIATRIST Signed: 10/28/2023 09:57 SALLY STANFORD [facility] [place] [facility] Oct 28, 2023 09:42 AM PSYCHIATRY NOTE: [...] R41.9 12/13/2022 SALLY STANFORD Hypoglycemia E16.2 04/30/2022 JOSE MANUEL PITT Mood disorder F34.9 11/21/2021 SALLY STANFORD Migraine [...] suicide attempt in 2005 and hospitalization at [facility] (overdose on morphine), also with an [...] trazodone, but continued to have early childhood education worker awakening which resolved with addition of clonidine at bedtime. Other pertinent medical hx includes CAD, s/p SD, s/p stents. Poorly controlled DM. Neuropathy, chronic [...] this VA (local) and dispensed from another [place] or DoD facility (remote) as well as [...] Signed: 10/28/2023 13:50 [facility]
--- OUTSIDE RECORDS SUMMARY | 2024-06-01 10:58 | XMS_ITS ---
Author Name [facility] [place] Address [address] [place] [address] Care Team Providers Care Academic Affairs Coordinator Name Role Phone JOSE MANUEL PITT [...] SUPPL EMENT A Feb 18, 2022 SUPP1 [id number] [phone] GINA DE LA ROSA PATIENT [facility] PREFER/SEN IOR CARE MEDICARE SUPPLEMEN BETY MEDIC ARE SUPPL EMENT A Feb 18, 2021 SUPP1 [id number] GINA DE LA ROSA PATIENT Selected Encounter This section includes the information on record at [place] for the Encounter. Date/Time Encounter Type Encounter Description Reason Provider Source Sep 09, 2023 05:00 PM OFFICE O/P EST MOD 30 MIN [facility] - IND ICD-10-CM F34.9 Persistent mood [affective] disorder, unspecified [facility] Encounter Template Text not used by [place] Assessments - Encounter Diagnoses This section includes the primary and secondary diagnoses documented for the Encounter. Date/Time Primary/Secondary Diagnosis Diagnosis Name Provider Source Sep 10, 2023 03:50 PM PRIMARY Persistent mood [affective] disorder, unspecified LACHELLE PIERREGUY Chan [place] [facility] [place] [facility] Sep 10, 2023 03:50 PM SECONDARY Post-traumatic stress disorder, chronic IGNACIONAV Chan [place] [facility] [place] [facility] Plan of Treatment: Future Appointments (+ 6 months) and Future Tests (+/- 45 days) The Plan of Treatment section includes future care activities for the patient from all [place] [facility] hospital[facility]. This section includes future appointments and [...] AMBULATORY - PSYCHIATRY [facility] [place] [facility] Sep 19, 2023 01:30 PM AMBULATORY - PSYCHIATRY [place] [facility] [place] [facility] Sep 25, 2023 09:00 AM AMBULATORY - PSYCHIATRY [place] [facility] [place] [facility] Sep 30, 2023 07:00 AM AMBULATORY - PSYCHIATRY [place] [facility] [place] [facility] Oct 02, 2023 09:00 AM AMBULATORY - PSYCHIATRY [place] [facility] [place] [facility] Oct 09, 2023 09:00 AM AMBULATORY - PSYCHIATRY [place] [facility] [place] [facility] Oct 16, 2023 09:00 AM AMBULATORY - PSYCHIATRY [facility] [place] [facility] Oct 23, 2023 09:00 AM AMBULATORY - PSYCHIATRY [place] [facility] [place] [facility] Oct 28, 2023 07:00 AM AMBULATORY - PSYCHIATRY [facility] [place] [facility] Oct 28, 2023 08:00 AM AMBULATORY - NEUROLOGY [place] [facility] [place] [facility] Oct 28, 2023 09:30 AM AMBULATORY - PSYCHIATRY [place] [facility] [place] [facility] Oct 30, 2023 09:00 AM AMBULATORY - PSYCHIATRY [place] [facility] [place] [facility] Nov 06, 2023 09:00 AM AMBULATORY - PSYCHIATRY [place] [facility] [place] [facility] Nov 13, 2023 09:00 AM AMBULATORY - PSYCHIATRY [place] [facility] [place] [facility] Nov 19, 2023 07:00 AM AMBULATORY - PSYCHIATRY [place] [facility] [place] [facility] Nov 20, 2023 09:00 AM AMBULATORY - PSYCHIATRY [place] [facility] [place] [facility] Nov 27, 2023 09:00 AM AMBULATORY - PSYCHIATRY [place] [facility] [place] [facility] Dec 04, 2023 09:00 AM AMBULATORY - PSYCHIATRY [place] [facility] [place] [facility] Dec 11, 2023 09:00 AM AMBULATORY - PSYCHIATRY [place] [facility] [place] [facility] Dec 16, 2023 09:30 AM AMBULATORY - PSYCHIATRY [place] [facility] [place] [facility] Social History: Smoking Status (Most [...] 15, 2023 07:00 AM VA-TOBACCO FORMER USER [place] [facility] [place] [facility] Tobacco Use History This section includes a history of the smoking, or tobacco-related health factors, that were collected on or before the date of the Encounter. The data comes from the [place] facility where the Encounter took place. Date/Time Smoking Status/Tobacco Use Comment F acility Apr 15, 2023 07:00 AM VA-TOBACCO QUIT 15 YRS OR MORE [place] [facility] [place] [facility] Apr 24, 2022 07:00 AM VA-TOBACCO FORMER USER [place] [facility] [place] [facility] Apr 24, 2022 07:00 AM VA-TOBACCO QUIT 15 YRS OR MORE [place] [facility] [place] [facility] Apr 27, 2021 03:00 PM VA-TOBACCO FORMER USER [place] [facility] [place] [facility] Apr 27, 2021 03:00 PM VA-TOBACCO QUIT 15 YRS OR MORE [place] [facility] [place] [facility] Mar 17, 2020 03:00 PM VA-TOBACCO FORMER USER [place] [facility] [place] [facility] Mar 17, 2020 03:00 PM VA-TOBACCO QUIT 15 YRS OR MORE [place] [facility] [place] [facility] Mar 31, 2019 09:04 AM VA-TOBACCO FORMER USER [place] [facility] [facility] Mar 31, 2019 09:04 AM VA-TOBACCO QUIT 15 YRS OR MORE [place] [facility] Encounter Notes: All associated encounter [...] continues to socialize, he went to a synagogue picnic recently. He was able to enjoy [...] 10/07/2020 MIGUEL CARRILLO Polyneuropathy G62.9 03/23/2020 MIGUEL CRARILLO Posttraumatic stress disorder F43.1 08/07/2019 CATRACHITA MENDEZ [...] suicide attempt in 2005 and hospitalization at [facility] (overdose on morphine), also with an [...] of trazodone, but continued to have early intervention school psychologist awakening which resolved with addition of clonidine [...] of active outpatient prescriptions dispensed from this [place] (local) and dispensed from another VA or [...] Resources Only: E911 (Emergency Call Relay Center): [phone] [facility] Crisis Line - (0-886-533-AWMH) press #1. BETH Suicide Coordinator ? [phone], Ext. [phone]; Back-up Ext. [phone] Barn Operator of the Day(AOD), Sangeeta CAMPOS ? [phone], Ext. [phone] Introduction: Visit is being conducted by [facility] [employer]. [place] identified with 2 identifiers: [X] Full Name [X] Date of [ ] VA ID Card Emergency Plan: [place] confirmed and/or provided the following information in case of emergency or technology failure. 's present location and address for appointment: Located at home address as in CPRS 's emergency contact name and phone number: Emergency contact as per listed in chart [place] reported that location is private and safe: Yes Informed Consent: informed of the risks and benefits of Telehealth video care. has the right to refuse video services. If refuses video visit, a [id number]-[id number] visit will be scheduled. verbalized consent for this video visit: Yes provided consent for any other persons present for visit: Yes If yes, who and relationship to patient: Secure visit: Visit was locked for security and privacy:Yes __ _ __ // SALLY PIERRE PSYCHIATRIST Signed: 09/10/2023 15:50 SALLY PIERRE [facility] [place] [facility]
--- OUTSIDE RECORDS SUMMARY | 2024-06-01 10:58 | XMS_ITS ---
Author Name [facility] [place] [facility] [place] Address [address] [place] [address] Care Team Providers Care Mail Carriers Supervisor Name Role Phone JOSE MANUEL PITT [...] SUPPL EMENT A Feb 18, 2022 SUPP1 [id number] [phone] GINA DE LA ROSA PATIENT [facility] PREFER/SEN IOR CARE MEDICARE SUPPLEMEN BETY MEDIC ARE SUPPL EMENT A Feb 18, 2021 SUPP1 [id number] GINA DE LA ROSA PATIENT Selected Encounter This section includes the information on record at [place] for the Encounter. Date/Time Encounter Type Encounter Description Reason Provider Source Dec 16, 2023 09:30 AM OFFICE O/P EST MOD 30 MIN [facility] - IND ICD-10-CM F34.9 Persistent mood [affective] disorder, unspecified [employer] [facility] Encounter Template Text not used by [place] Assessments - Encounter Diagnoses This section includes the primary and secondary diagnoses documented for the Encounter. Date/Time Primary/Secondary Diagnosis Diagnosis Name Provider Source Dec 16, 2023 11:52 AM PRIMARY Persistent mood [affective] disorder, unspecified LACHELLE PIERREGUY Teri Rocio [facility] [place] [facility] Dec 16, 2023 11:52 AM SECONDARY Post-traumatic stress disorder, chronic LACHELLE PIERREGUY Chan [place] [facility] [place] [facility] Plan of Treatment: Future Appointments (+ 6 months) and Future Tests (+/- 45 days) The Plan of Treatment section includes future care activities for the patient from all [place] [facility]. This section includes future appointments [...] AMBULATORY - PSYCHIATRY [facility] [place] [facility] Dec 19, 2023 07:30 AM AMBULATORY - MEDICINE [facility] [place] [facility] Dec 23, 2023 07:00 AM AMBULATORY - PSYCHIATRY [facility] [place] [facility] Dec 25, 2023 09:00 AM AMBULATORY - PSYCHIATRY [facility] [place] [facility] Jan 01, 2024 09:00 AM AMBULATORY - PSYCHIATRY [facility] [place] [facility] Jan 08, 2024 09:00 AM AMBULATORY - PSYCHIATRY [facility] [place] [facility] Jan 09, 2024 09:30 AM AMBULATORY - MEDICINE [facility] Jan 14, 2024 07:00 AM AMBULATORY - PSYCHIATRY [facility] [place] [facility] Jan 20, 2024 08:30 AM AMBULATORY - NEUROLOGY [facility] [place] [facility] Jan 22, 2024 09:00 AM AMBULATORY - PSYCHIATRY [facility] [place] [facility] Jan 27, 2024 01:30 PM AMBULATORY - PSYCHIATRY [facility] [place] [facility] Jan 29, 2024 09:00 AM AMBULATORY - PSYCHIATRY [facility] [place] [facility] Feb 05, 2024 09:00 AM AMBULATORY - PSYCHIATRY [facility] [place] [facility] Feb 10, 2024 07:00 AM [...] AMBULATORY - PSYCHIATRY [facility] [place] [facility] Lab Results: +/- 30 days [...] Dec 19, 2023 07:55 AM [facility] FOLATE (WROX) SERUM Specimen Type: SERUM No comment entered. Ordering Provider: SALLY PIERRE Report Released Date/Time: Oct 28, 2023 09:59 AM Reporting Lab: [facility] [place] [facility] [address] [facility] [address] Performing Lab: [facility] [place] [facility] [address] [facility] [address] FOLATE (WROX) 9.07 ng/mL >5.2 Dec 19, 2023 07:55 AM [facility] TSH SERUM Specimen Type: SERUM No comment entered. Ordering Provider: SALLY PIERRE Report Released Date/Time: Oct 28, 2023 09:59 AM Reporting Lab: [facility] [address] [facility] [address] Performing Lab: [facility] [address] [facility] [address] TSH 1.09 u[IU]/mL 0.35-5.00 Dec 19, 2023 07:55 AM [facility] VITAMIN B12 SERUM Specimen Type: SERUM No comment entered. Ordering Provider: SALLY PIERRE Report Released Date/Time: Oct 28, 2023 09:59 AM Reporting Lab: [address] [address] Performing Lab: [address] [address] VITAMIN B12 297 pg/mL 200-900 Dec 19, 2023 07:55 AM [facility] VITAMIN D (25-[place]) SERUM Specimen Type: SERUM No comment entered. Ordering Provider: SALLY PIERRE Report Released Date/Time: Oct 28, 2023 09:59 AM Reporting Lab: [address] [address] Performing Lab: [address] [address] VITAMIN D (25-[place]) 38 ng/mL 20-50 Dec 19, 2023 07:55 AM [facility] HEMOGLOBIN A1C PANEL BLOOD Specimen [...] Dec 16, 2023 09:50 AM Reporting Lab: [address] [address] Performing Lab: [address] [address] HEMOGLOBIN A1C 5.5 4.0-5.6 Dec 19, 2023 07:55 AM [facility] LIPID PANEL FASTING SERUM Specimen Type: SERU M No comment entered. Ordering Provider: SALLY PIERRE Report Released Date/Time: Dec 16, 2023 09:50 AM Reporting Lab: [address] [address] Performing Lab: [address] [address] CHOLESTEROL 113 mg/dL TRIGLYCERIDE 85 mg/dL 0-150 LDL calculated 50 mg/dL 0-129 CHOL/HDL 2.5 HDL CHOLESTEROL 46 mg/dL 40-60 Dec 19, 2023 07:55 AM [facility] BASIC METABOLIC PANEL (fasting) SERUM Specime n Type: SERUM No comment entered. Ordering Provider: SALLY PIERRE Report Released Date/Time: Dec 16, 2023 09:50 AM Reporting Lab: [address] [address] Performing Lab: [address] [address] UREA NITROGEN 18 mg/dL 7-25 GLUCOSE 117 [...] 15, 2023 07:00 AM VA-TOBACCO FORMER USER [facility] Tobacco Use History This section includes a history of the smoking, or tobacco-related health factors, that were collected on or before the date of the Encounter. The data comes from the [place] facility where the Encounter took place. Date/Time Smoking Status/Tobacco Use Comment F acility Apr 15, 2023 07:00 AM VA-TOBACCO QUIT 15 YRS OR MORE [facility] [place] [facility] Apr 24, 2022 07:00 AM VA-TOBACCO FORMER USER [facility] [place] [facility] Apr 24, 2022 07:00 AM VA-TOBACCO QUIT 15 YRS OR MORE [facility] [place] [facility] Apr 27, 2021 03:00 PM VA-TOBACCO FORMER USER [facility] [place] [facility] Apr 27, 2021 03:00 PM VA-TOBACCO QUIT 15 YRS OR MORE [facility] [place] [facility] Mar 17, 2020 03:00 PM VA-TOBACCO FORMER USER [facility] [place] [facility] Mar 17, 2020 03:00 PM VA-TOBACCO QUIT 15 YRS OR MORE [facility] [place] [facility] Mar 31, 2019 09:04 AM VA-TOBACCO FORMER USER [facility] [place] [facility] Mar 31, 2019 09:04 AM VA-TOBACCO QUIT 15 YRS OR MORE [place] [facility] [place] [facility] Encounter Notes: All associated encounter notes This section contains the clinical notes associated to the Encounter. Date/Time Encounter Note(s) Provider Source Dec 16, 2023 09:37 AM PSYCHIATRY NOTE: LOCAL TITLE: PSYCHIATRY NOTE STANDARD TITLE: PSYCHIATRY NOTE DATE OF NOTE: DEC 16, 2023@09:37 ENTRY DATE: DEC 16, 2023@09:37:40 AUTHOR: SALLY PIERRE COSIGNER: URGENCY: STATUS: COMPLETED PSYCHIATRY FOLLOW UP VISIT ESTRELLATAJ CORRALES is a 68yo MARITAL STATUS - WHITE [...] suicide attempt in [address] [facility] (overdose on morphine), also with an [...] dose of trazodone, but continued to have commercial hvac service technician awakening which resolved with addition of clonidine at bedtime. Other pertinent medical hx includes CAD, s/p ID, s/p stents. Poorly controlled DM. Neuropathy, chronic [...] (local) and dispensed from another [place] or [facility] facility (remote) as well as inpatient orders [...] PIERRE PSYCHIATRIST Signed: 12/16/2023 11:53 SALLY PIERRE [place] [facility]
--- OUTSIDE RECORDS SUMMARY | 2024-06-01 10:58 | XMS_ITS ---
Author Organization [facility] Address [address] [place] [address] Care Team Providers Care Veneer Taping Machine Offbearer Name Role Phone AMY BENEDICT D.O Primary Care Provider Kristine vailable Gilbert Mccloud Unavailable [phone] Allergies Allergen (clinical drug ingredient) Drug/Non Drug Allergy documented on EMR Reaction Allergy Type Onset Date Status metformin Metformin HCl kidney failure Drug Allergy Active Results Component Value Reference Range Notes US abdomen limited Reviewed date:04/01/2023 07:16:02 AM Interpretation: Performing Lab: Notes/Report: [facility] [address] [place] [address] Ultrasound Report Signed Patient: Taj Cisneros Sr MR#: [id number] : 1955 Acct:[id number] Age/Sex: 67 / M ADM Date: 02/13/23 [facility]: [facility] Dr: Gilbert Mccloud MD Ordering Physician: Gilbert Mccloud Date of Service: 02/13/23 Procedure(s): US abdomen limited Accession Number(s): [id number] cc: Amy Benedict DO; Gilbert Mccloud EXAMINATION: [...] in OV> 02/19/23 1115 DD/ 1013 TD/TT: Lease Examiner: [facility] [address] [place] [address] [place] [address] Ultrasound Report Signed Patient: Angelica Cisneros Sr MR#: [id number] : 1955 Acct:[id number] Age/Sex: 67 / M ADM Date: 02/13/23 Loc: [facility] Attending Dr: Gilbert Mccloud MD Ordering Physician: Gilbert Mccloud Date of Service: 02/13/23 Procedure(s): US abd omen limited Accession Number(s): [id number] cc: Shoaib Benedict DO; Gilbert Mccloud EXAMINATION: [...] in OV> 02/19/23 1115 DD/ 1013 TD/TT: Lease Examiner: REASON FOR VISIT Patient presents today for abd pain Medications Medication SIG (Take, Route, Frequency, Duration) Notes Start Date End Date Status Dicyclomine HCl 10 MG 1-2 capsules Orally Four times a day prn abdominal cramps/discomfort for 30 day(s) 08/10/2018 Not-Taking Pantoprazole Sodium 40 MG 1 tablet Orally Once a day Not-Taking Alpha 3 1200 MG 1 capsule Orally Once [...] 02/12/2023 Encounters Encounter Location Date Provider Diagnosis [facility] [address] [place] [address] 02/12/2023 Gilbert Mccloud Upper abdominal pain R10.10 [...] * TAJ CISNEROS SrDOB:1955 (67 yo M)Acc No.[id number]:02/12/2023 Progress Notes Patient:?TAJ CISNEROS Provider:?Gilbert Mccloud MD :1955???Age:67 Y???Sex:Male Clifford e:02/12/2023 Address:[address] [place], [place] [id number] Pcp:AMY BENEDICT D.O Subjective: * Chief Complaints: [...] Bowel obstruction 08/2013--treated with laprascopic surgery at [facility] Thumb repair-left Laprascopic Gastric bypass at [facility] 2012--lost 130# Panniculectomy 2018 * Hospitalization/Major [...] Losartan Potassium 100 MG Tablet Oral Not-Taking/PRNGlucose Alpha 3 1200 MG Capsule 1 capsule Orally Once a dayMiraLax - Packet 1 packet mixed with 8 ounces of fluid Orally Once a dayDicyclomine HCl 10 MG Capsule 1-2 capsules Orally Four times a day prn abdominal cramps/discomfortPantoprazole Sodium 40 MG Tablet Delayed Release 1 tablet Orally Once a dayNot-Taking/PRN Glucose Not-Taking/PRN Alpha 3 1200 MG Capsule 1 capsule Orally [...] Procedure Codes:?3017F COLOR ECTAL CA SCREEN DOC [id number] TOBACCO NON-FAGAL2042 BP SCR NOT PRFRM REC REASON NOS * Preventive Medicine:? ??Counseling:?Care goal follow-up plan:?Above Normal BMI Follow-up?Giving encouragement to exercise,?BMI management provided?Yes.? * Follow Up:?prn * * Sign off status: Completed true * Provider:?Gilbert Mccloud MD Date:? 023 Generated for Leonard sarabia/Edgard/Philitting on:?06/01/2024 10:57 AM EDT History and Physical Notes * [...]
--- OUTSIDE RECORDS SUMMARY | 2024-06-01 10:58 | XMS_ITS | Encounter Summary ---
Author Name [facility] [place] [facility] [place] Address [address] [place] [address] Care Team Providers Care Manager Ui Name Role Phone JOSE MANUEL PITT Primary [...] SUPPL EMENT A Feb 18, 2022 SUPP1 [id number] [phone] GINA DE LA ROSA PATIENT [facility] MED PREFER/SEN IOR CARE MEDICARE SUPPLEMEN BETY MEDIC ARE SUPPL EMENT A Feb 18, 2021 SUPP1 [id number] [phone] GINA DE LA ROSA PATIENT Selected [...] chronic MOISES PADILLA [place] [facility] [place] [facility] Jul 22, 2023 07:47 AM SECONDARY Persistent mood [affective] disorder, unspecified MOISES PAD[place]A [facility] [facility] [place] [facility] Jul 22, 2023 07:47 AM SECONDARY Unsp symptoms and signs w cognitive functions and awareness MOISES PAD[place]A [place] [facility] [place] [facility] Plan of Treatment: Future Appointments (+ 6 months) and Future Tests (+/- 45 days) The Plan of Treatment section includes future care activities for the patient from all [place] [facility] This section includes future appointments and [...] AMBULATORY - PSYCHIATRY [facility] [place] [facility] Jul 29, 2023 07:00 AM AMBULATORY - PSYCHIATRY [facility] [place] [facility] Jul 29, 2023 08:30 AM AMBULATORY - MEDICINE [place] [facility] [place] [facility] Aug 21, 2023 10:00 AM AMBULATORY - MEDICINE [facility] Sep 02, 2023 07:00 AM AMBULATORY - PSYCHIATRY [place] [facility] [place] [facility] Sep 09, 2023 05:00 PM AMBULATORY - PSYCHIATRY [facility] [place] [facility] Sep 11, 2023 09:00 AM AMBULATORY - PSYCHIATRY [facility] [place] [facility] Sep 19, 2023 01:30 PM AMBULATORY - PSYCHIATRY [facility] [place] [facility] Sep 25, 2023 09:00 AM AMBULATORY - PSYCHIATRY [facility] [place] [facility] Sep 30, 2023 07:00 AM AMBULATORY - PSYCHIATRY [facility] [place] [facility] Oct 02, 2023 09:00 AM AMBULATORY - PSYCHIATRY [facility] [place] [facility] Oct 09, 2023 09:00 AM AMBULATORY - PSYCHIATRY [facility] [place] [facility] Oct 16, 2023 09:00 AM AMBULATORY - PSYCHIATRY [facility] [place] [facility] Oct 23, 2023 09:00 AM AMBULATORY - PSYCHIATRY [facility] [place] [facility] Oct 28, 2023 07:00 AM AMBULATORY - PSYCHIATRY [facility] [place] [facility] Oct 28, 2023 08:00 AM AMBULATORY - NEUROLOGY [facility] [place] [facility] Oct 28, 2023 09:30 AM AMBULATORY - PSYCHIATRY [facility] [place] [facility] Oct 30, 2023 09:00 AM AMBULATORY - PSYCHIATRY [facility] [place] [facility] Nov 06, 2023 09:00 AM AMBULATORY - PSYCHIATRY [facility] [place] [facility] Nov 13, 2023 09:00 AM AMBULATORY - PSYCHIATRY [place] [facility] [place] [facility] Vital Signs: All taken on the encounter date This section contains inpatient and outpatient Vital Signs collected on the date of the Encounter. Date/Time Temperature Pulse Blood Pressure Respiratory Rate SP02 Pain Height Weight Body Mass Index Source Jul 22, 2023 07:55 AM 97.6 62 149/79 18 95 6 260 36 [facility] [place] [facility] Social History: Smoking Status (Most current) [...] 2023 07:00 AM VA-TOBACCO [facility] [place] [facility] Tobacco Use History This section includes a history of the smoking, or tobacco-related health factors, that were collected on or before the date of the Encounter. The data comes from the [place] facility where the Encounter took place. Date/Time Smoking Status/Tobacco Use Comment F jodie Apr 15, 2023 07:00 AM VA-TOBACCO QUIT 15 YRS OR MORE [place] [facility] [place] [facility] Apr 24, 2022 07:00 AM VA-TOBACCO FORMER USER [place] [facility] [place] [facility] Apr 24, 2022 07:00 AM VA-TOBACCO QUIT 15 YRS OR MORE [place] [facility] [place] [facility] Apr 27, 2021 03:00 PM VA-TOBACCO FORMER USER [facility] [place] [facility] Apr 27, 2021 03:00 PM VA-TOBACCO QUIT 15 YRS OR MORE [facility] [place] [facility] Mar 17, 2020 03:00 PM VA-TOBACCO FORMER USER [facility] [place] [facility] Mar 17, 2020 03:00 PM VA-TOBACCO QUIT 15 YRS OR MORE [facility] [place] [facility] Mar 31, 2019 09:04 AM VA-TOBACCO FORMER USER [facility] [place] [facility] Mar 31, 2019 09:04 AM VA-TOBACCO QUIT 15 YRS OR MORE [place] [facility] [place] [facility] Encounter Notes: All associated encounter notes [...] as well as anger management. SESSION FOCUS: [place] spoke about recent stressors at home which [...] times, so we explored some ways that [place] can apply his assertiveness and communication skills. [place] was encouraged to consider how he can [...] Staff Psychologist Signed: 07/22/2023 07:47 [place] [facility] [place]
--- OUTSIDE RECORDS SUMMARY | 2024-06-01 10:58 | XMS_ITS | Encounter Summary ---
Author Name [facility] [facility] [place] Organization [facility] [place] Address [address] [place] [address] Care Team Providers Care Sock Ironer Name Role Phone JOSE MANUEL PITT Primary [...] Patient's Relationship to Policy [facility] HEALTH PLAN MEDICARE SUPPLEMEN BETY MEDIC ARE SUPPL EMENT A Feb 18, 2022 SUPP1 [id number] GINA DE LA ROSA PATIENT [facility] MED PREFER/SEN IOR CARE MEDICARE SUPPLEMEN BETY MEDIC ARE SUPPL EMENT A Feb 18, 2021 SUPP1 [id number] [phone] GINA DE LA ROSA PATIENT Selected [...] 02:40 PM PRIMARY Nail dystrophy ASHLEIGH QUINTEROS VASSAR Mar 31, 2024 02:40 PM SECONDARY Corns and callosities ASHLEIGH QUINTEROS VASSAR Mar 31, 2024 02:40 PM SECONDARY Type 2 diabetes w diabetic peripheral angiopath w/o gangrene ASHLEIGH QUINTEROS VASSAR Mar 31, 2024 02:40 PM SECONDARY 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 This section includes future appointments [...] AMBULATORY - PSYCHIATRY [facility] [place] [facility] Sep 09, 2023 05:00 PM AMBULATORY - PSYCHIATRY [facility] [place] [facility] Sep 11, 2023 09:00 AM AMBULATORY - PSYCHIATRY [facility] [place] [facility] Sep 19, 2023 01:30 PM AMBULATORY - PSYCHIATRY [facility] [place] [facility] Sep 25, 2023 09:00 AM AMBULATORY - PSYCHIATRY [facility] [place] [facility] Sep 30, 2023 07:00 AM AMBULATORY - PSYCHIATRY [facility] [place] [facility] Oct 02, 2023 09:00 AM AMBULATORY - PSYCHIATRY [facility] [place] [facility] Oct 09, 2023 09:00 AM AMBULATORY - PSYCHIATRY [facility] [place] [facility] Oct 16, 2023 09:00 AM AMBULATORY - PSYCHIATRY [facility] [place] [facility] Oct 23, 2023 09:00 AM AMBULATORY - PSYCHIATRY [facility] [place] [facility] Oct 28, 2023 07:00 AM AMBULATORY - PSYCHIATRY [facility] [place] [facility] Oct 28, 2023 08:00 AM AMBULATORY - NEUROLOGY [facility] [place] [facility] Oct 28, 2023 09:30 AM AMBULATORY - PSYCHIATRY [facility] [place] [facility] Oct 30, 2023 09:00 AM AMBULATORY - PSYCHIATRY [place] [facility] [place] [facility] Nov 06, 2023 09:00 AM AMBULATORY - PSYCHIATRY [facility] [place] [facility] Nov 13, 2023 09:00 AM AMBULATORY - PSYCHIATRY [place] [facility] [place] [facility] Nov 19, 2023 07:00 AM AMBULATORY - PSYCHIATRY [place] [facility] [place] [facility] Nov 20, 2023 09:00 AM AMBULATORY - PSYCHIATRY [place] [facility] [place] [facility] Nov 27, 2023 09:00 AM AMBULATORY - PSYCHIATRY [place] [facility] [facility] Dec 04, 2023 09:00 AM AMBULATORY - PSYCHIATRY [place] [facility] [place] [facility] Encounter Notes: All associated encounter notes This section contains the clinical notes associated to the Encounter. Date/Time Encounter Note(s) Provider Source Aug 21, 2023 07:21 AM PODIATRY CONSULT: [facility] TITLE: CONSULT REPORT/PODIATRY STANDARD TITLE: PODIATRY CONSULT DATE OF NOTE: AUG 21, 2023@07:21 ENTRY DATE: AUG 21, 2023@07:21:55 AUTHOR: ASHLEIGH QUINTEROS COSIGNER: URGENCY: STATUS: COMPLETED NAME: TAJ DE LA ROSA DATE: AUG 21, 2023 : Oct PCP: JOSE MANUEL PITT LAST SEEN: INITIAL CONSULT VISIT TODAY HPI: Pt. is a 67 yo alert [facility] MALE who presents for initial podiatric [...] present physical-medical status. Protective sensation utilizing a Semora-Vidhya lOg monofilament is 9/10RT & 8/10 LEFT. *NOTE: *YEARLY COMPLETE PAVE EXAM PERFORMED TODAY - SEE BELOW. BIOMECHANICAL: Exam is deferred at this time due to the presence of pain/ as non-contributory to the cc . A: Clinical Impression is onychocryptic clinically mycotic dystrophic nails in the presence of [id number]. P: Treatment consists of debridement-reduction of all [...] of active outpatient prescriptions dispensed from this [place] (local) and dispensed from another [place] or [place] facility (remote) as well as [...] BILAT SENSORY CHECK: Includes 10 gram Monofilament (Semora-Vidhya) test of sensation. Intact (Greater than or [...] FOUND Comment: 08/21/2023 /nicole/ ASHLEIGH QUINTEROS DPM COUNSELOR/ART THERAPIST Signed: 08/21/2023 10:35 ASHLEIGH QUINTEROS
--- OUTSIDE RECORDS SUMMARY | 2024-06-01 10:58 | XMS_ITS ---
Author Name [facility] [place] Organization [place] Address [address] [place] [address] Care Team Providers Care Transitions Manager Rn Name Role Phone JOSE MANUEL PITT Primary [...] SUPPL EMENT A Feb 18, 2022 SUPP1 [id number] GINA DE LA ROSA PATIENT [facility] MED PREFER/SEN IOR CARE MEDICARE SUPPLEMEN BETY MEDIC ARE SUPPL EMENT A Feb 18, 2021 SUPP1 [id number] [phone] GINA DE LA ROSA PATIENT Selected [...] chronic MARIALUISA SALCEDO [place] [facility] [place] [facility] Plan of Treatment: Future Appointments (+ [...] PSYCHIATRY [facility] [place] [facility] Dec 04, 2023 09:00 AM AMBULATORY - PSYCHIATRY [facility] [place] [facility] Dec 11, 2023 09:00 AM AMBULATORY - PSYCHIATRY [facility] [place] [facility] Dec 16, 2023 09:30 AM AMBULATORY - PSYCHIATRY [facility] [place] [facility] Dec 18, 2023 09:00 AM AMBULATORY - PSYCHIATRY [facility] [place] [facility] Dec 19, 2023 07:30 AM AMBULATORY - MEDICINE [facility] [place] [facility] Dec 23, 2023 07:00 AM AMBULATORY - PSYCHIATRY [facility] [place] [facility] Dec 25, 2023 09:00 AM AMBULATORY - PSYCHIATRY [facility] [place] [facility] Jan 01, 2024 09:00 AM AMBULATORY - PSYCHIATRY [facility] [place] [facility] Jan 08, 2024 09:00 AM AMBULATORY - PSYCHIATRY [facility] [place] [facility] Jan 09, 2024 09:30 AM [facility] Jan 14, 2024 07:00 AM AMBULATORY - PSYCHIATRY [facility] [place] [facility] Jan 20, 2024 08:30 AM AMBULATORY - NEUROLOGY [facility] [place] [facility] Jan 22, 2024 09:00 AM AMBULATORY - PSYCHIATRY [facility] [place] [facility] Jan 27, 2024 01:30 PM AMBULATORY - PSYCHIATRY [facility] [place] [facility] Jan 29, 2024 09:00 AM [facility] [place] [facility] Feb 05, 2024 09:00 AM [facility]BUL[facility] [place] [facility] Feb 10, 2024 07:00 AM [facility]UL[facility] [place] [facility] Feb 24, 2024 07:00 AM [facility] Mar 04, 2024 09:00 AM [facility] Active, Pending, and Scheduled Orders [...] data comes from all [place] treatment facilities. Test Date/Time Test Type Test Details Facility Name Oct 25, 2023 02:36 PM Consult Order COMMUNITY CARE-UROLOGY Cons Set Rider's Choice [facility] Oct 28, 2023 01:47 PM Consult Order COMMUNITY [facility]-NEUROLOGY Cons Set Rider's Choice [facility] Lab Results: +/- 30 days of the encounter This section includes the Chemistry and Hematology Lab Results on record with [place] for the patient. Radiology Reports and Pathology Reports are provided separately, in subsequent sections. Lab Results This section contains the Chemistry/Hematology Results that were resulted 30 days before or 30 daysafter the date of the Encounter. Date/Time Source Result Type Result - Unit Interpretation Reference Range Specimen Type Comment Dec 19, 2023 07:55 AM [facility] FOLATE (WROX) SERUM Specimen Type: SERUM No comment entered. Ordering Provider: SALLY PIERRE Report Released Date/Time: Oct 28, 2023 09:59 AM Reporting Lab: [facility] [address] [facility] [address] Performing Lab: [facility] [address] [facility] [id number] FOLATE (WROX) 9.07 ng/mL >5.2 Dec 19, 2023 07:55 AM [facility] TSH SERUM Specimen Type: SERUM No comment entered. Ordering Provider: SALLY PIERRE Report Released Date/Time: Oct 28, 2023 09:59 AM Reporting Lab: [facility] [address] [facility] [address] Performing Lab: [address] [address] TSH 1.09 u[IU]/mL 0.35-5.00 Dec 19, 2023 07:55 AM [facility] VITAMIN B12 SERUM Specimen Type: SERUM No comment entered. Ordering Provider: SALLY PIERRE Report Released Date/Time: Oct 28, 2023 09:59 AM Reporting Lab: [address] [address] Performing Lab: [address] [address] VITAMIN B12 297 pg/mL 200-900 Dec 19, 2023 07:55 AM [facility] VITAMIN D (25-OH) SERUM Specimen Type: SERUM No comment entered. Ordering Provider: SALLY PIERRE Report Released Date/Time: Oct 28, 2023 09:59 AM Reporting Lab: [address] [address] Performing Lab: [address] [address] VITAMIN D (25-OH) 38 ng/mL 20-50 Dec 19, 2023 07:55 AM [facility] LIPID PANEL FASTING SERUM Specimen Type: SERU M No comment entered. Ordering Provider: SALLY PIERRE Report Released Date/Time: Dec 16, 2023 09:50 AM Reporting Lab: [address] [address] Performing Lab: [address] [address] CHOLESTEROL 113 mg/dL TRIGLYCERIDE 85 mg/dL 0-150 LDL calculated 50 mg/dL 0-129 CHOL/HDL 2.5 HDL CHOLESTEROL 46 mg/dL 40-60 Dec 19, 2023 07:55 AM [facility] HEMOGLOBIN A1C PANEL BLOOD Specimen Type: [...] Dec 16, 2023 09:50 AM Reporting Lab: [address] [address] Performing Lab: [address] [address] HEMOGLOBIN A1C 5.5 4.0-5.6 Dec 19, 2023 07:55 AM [facility] BASIC METABOLIC PANEL (fasting) SERUM Specime n Type: SERUM No comment entered. Ordering Provider: SALLY PIERRE Report Released Date/Time: Dec 16, 2023 09:50 AM Reporting Lab: [address] [address] Performing Lab: [address] [address] UREA NITROGEN 18 mg/dL 7-25 GLUCOSE 117 [...] VA-TOBACCO FORMER USER [place] [facility] [place] [facility] Tobacco Use History This section includes a history of the smoking, or tobacco-related health factors, that were collected on or before the date of the Encounter. The data comes from the [place] facility where the Encounter took place. Date/Time Smoking Status/Tobacco Use Comment F acility Apr 15, 2023 07:00 AM VA-TOBACCO QUIT 15 YRS OR MORE [facility] [place] [facility] Apr 24, 2022 07:00 AM VA-TOBACCO FORMER USER [facility] [place] [facility] Apr 24, 2022 07:00 AM VA-TOBACCO QUIT 15 YRS OR MORE [facility] [place] [facility] Apr 27, 2021 03:00 PM VA-TOBACCO FORMER USER [facility] [place] [facility] Apr 27, 2021 03:00 PM VA-TOBACCO QUIT 15 YRS OR MORE [facility] [place] [facility] Mar 17, 2020 03:00 PM VA-TOBACCO FORMER USER [facility] [place] [facility] Mar 17, 2020 03:00 PM VA-TOBACCO QUIT 15 YRS OR MORE [facility] [place] [facility] Mar 31, 2019 09:04 AM VA-TOBACCO FORMER USER [facility] [place] [facility] Mar 31, 2019 09:04 AM VA-TOBACCO QUIT 15 YRS OR MORE [facility] [place] [facility] Encounter Notes: All associated encounter notes [...] 9 AM Number of group members: 12 Communications Systems Engineer: Marialuisa Salcedo, [facility] Group began with a introduction that [...] how they struggle with anger. engaged with parks recreation director and group members appropriately, participating in the meditation and reflection time. Felton did not endorse SI/HI. 's intention today was to relax and feel grounded. DIAGNOSES: Persistent mood disorder, unspecified PTSD, chronic Cognitive Disorder (History of) Cerebral Infarction, Unspecified [place] [employer] Connect (VVC) Standard Documentation [facility] Clinician Resources Only: E911 (Emergency Call Relay Center): [phone] National NationalField Crisis Line - 988 then press #1. [facility] Suicide Coordinator [phone], Ext. [phone]; Back-up Ext. [phone] [place] Police, Sangeeta CAMPOS [phone] Introduction: Visit is being conducted by [place] [employer]. identified with 2 identifiers: [X] Full Name [X] Date of [ ] VA ID Card Emergency Plan: confirmed and/or provided the following information in case of emergency or technology failure. PATIENT PHONE - PHONE NUMBER [CELLULAR] - Is patient phone number correct, if not, enter below: Felton's phone number: TAJ DE LA ROSA [address], [place], [address] 's present location and address for appointment: his home 's emergency contact name and phone number: E-Cont.: JUVENCIO DE LA ROSA Relation Type: UNRELATED FRIEND/OTHER Relation Note: OTHERS [address] [place] [address] [facility] reported that location is private and safe: Yes Informed Consent: Felton informed of the risks and benefits of Telehealth video care. Felton has the right to refuse video services. If refuses video visit, a [id number] visit will be scheduled. Felton verbalized consent for this video visit: Yes Felton provided consent for any other persons present for visit: Yes If yes, who and relationship to patient:group Secure visit: Visit was locked for security and privacy:Yes /nicole/ MARIALUISA SALCEDO [facility] Interior Design Program Chair Signed: 11/20/2023 10:26 MARIALUISA SALCEDO [facility]
--- OUTSIDE RECORDS SUMMARY | 2024-06-01 10:58 | XMS_ITS | Encounter Summary ---
Author Name [facility] [place] Address [address] [place] [address] Care Team Providers Care Paper Bag Maker Name Role Phone JOSE MANUEL PITT Primary [...] Burgess's Name Patient's Relationship to Policy Burgess [facility] HEALTH PLAN MEDICARE SUPPLEMEN BETY MEDIC ARE SUPPL EMENT A Feb 18, 2022 SUPP1 [id number] GINA DE LA ROSA PATIENT [facility] MED PREFER/SEN IOR CARE MEDICARE SUPPLEMEN BETY MEDIC ARE SUPPL EMENT A Feb 18, 2021 SUPP1 [id number] GINA DE LA ROSA PATIENT Selected [...] chronic MOISES PADILLA [place] [facility] [facility] Apr 13, 2024 07:54 AM SECONDARY Persistent mood [affective] disorder, unspecified MOISES PADILLA [place] [facility] [place] [facility] Apr 13, 2024 07:54 AM SECONDARY Unsp symptoms and signs w cognitive functions and awareness MOISES PADILLA [facility] Plan of Treatment: Future Appointments (+ 6 months) and Future Tests (+/- 45 days) The Plan of Treatment section includes future care activities for the [facility] [place] [facility] This section includes [...] PSYCHIATRY [facility] [place] [facility] Apr 20, 2024 09:00 AM AMBULATORY - NEUROLOGY [place] [facility] [place] [facility] Apr 22, 2024 09:00 AM AMBULATORY - PSYCHIATRY [place] [facility] [place] [facility] Apr 29, 2024 09:00 AM AMBULATORY - PSYCHIATRY [facility] [facility] May 04, 2024 07:00 AM AMBULATORY - PSYCHIATRY [facility] [facility] May 04, 2024 10:15 AM AMBULATORY - MEDICINE [facility] [place] [facility] May 06, 2024 09:00 AM AMBULATORY - PSYCHIATRY [facility] [place] [facility] May 14, 2024 09:30 AM AMBULATORY - MEDICINE [facility] May 20, 2024 09:00 AM AMBULATORY - PSYCHIATRY [facility] [facility] May 21, 2024 02:00 PM AMBULATORY - MEDICINE [facility] [place] [facility] May 25, 2024 07:00 AM AMBULATORY - PSYCHIATRY [facility] [place] [facility] Jun 01, 2024 01:00 PM AMBULATORY - PSYCHIATRY [facility] [facility] Jun 03, 2024 09:00 AM AMBULATORY - PSYCHIATRY [facility] [facility] Jun 09, 2024 07:00 AM AMBULATORY - PSYCHIATRY [facility] [facility] Jun 10, 2024 09:00 AM AMBULATORY - PSYCHIATRY [facility] [facility] June 22, 2024 07:00 AM AMBULATORY - PSYCHIATRY [facility] [facility] July 06, 2024 07:00 AM AMBULATORY - PSYCHIATRY [facility] [facility] Jul 20, 2024 09:00 AM AMBULATORY - NEUROLOGY [place] [facility] [place] [facility] Aug 03, 2024 08:30 AM AMBULATORY - MEDICINE [place] [facility] [place] [facility] Sep 17, 2024 09:30 AM [facility] Active, Pending, and Scheduled Orders [...] 27, 2024 12:00 AM Laboratory - Chemi chuck Order OCCULT BLOOD FIT X1 SCREEN (MFP ONLY) STOOL FECES SP [facility] Social History: Smoking Status (Most [...] AM VA-TOBACCO USE FOR TYRONE OTHER TYPE [facility] Tobacco Use History This section includes a history of the smoking, or tobacco-related health factors, that were collected on or before the date of the Encounter. The data comes from the [place] facility where the Encounter took place. Date/Time Smoking Status/Tobacco Use Comment F acility Mar 30, 2024 07:00 AM VA-TOBACCO USE FOR TYRONE OTHER TYPE [facility] [facility] Apr 15, 2023 07:00 AM VA-TOBACCO FORMER USER VA [facility] [place] [facility] Apr 15, 2023 07:00 AM VA-TOBACCO QUIT 15 YRS OR MORE [facility] [facility] Apr 24, 2022 07:00 AM VA-TOBACCO FORMER USER [facility] [facility] Apr 24, 2022 07:00 AM VA-TOBACCO QUIT 15 YRS OR MORE [facility] [facility] Apr 27, 2021 03:00 PM VA-TOBACCO FORMER USER [facility] [facility] Apr 27, 2021 03:00 PM VA-TOBACCO QUIT 15 YRS OR MORE [facility] [facility] Mar 17, 2020 03:00 PM VA-TOBACCO FORMER USER [facility] [facility] Mar 17, 2020 03:00 PM VA-TOBACCO QUIT 15 YRS OR MORE [facility] [facility] Mar 31, 2019 09:04 AM VA-TOBACCO FORMER USER [facility] [facility] Mar 31, 2019 09:04 AM VA-TOBACCO QUIT 15 YRS OR MORE [facility] [place] [facility] Encounter Notes: All associated encounter notes This section contains the clinical notes associated to the Encounter. Date/Time Encounter Note(s) Provider Source Apr 13, 2024 06:56 AM PSYCHOLOGY NOTE: LOCAL TITLE: PSYCHOLOGY NOTE STANDARD TITLE: PSYCHOLOGY NOTE DATE OF NOTE: APR 13, 2024@06:56 ENTRY DATE: APR 13, 2024@06:56:18 AUTHOR: MOISES PADILLA COSIGNER: URGENCY: STATUS: COMPLETED [place] was identified by Visual recognition and patient name. VISIT DURATION 45 minutes DIAGNOSES: Persistent mood disorder, unspecified PTSD, chronic Cognitive Disorder (History of) Cerebral Infarction, Unspecified PRESENTING PROBLEMS: [place] presented on time and we resumed treatment [...] Staff Psychologist Signed: 04/13/2024 07:54 MOISES PADILLA [place] [facility]
== END 2024-06-01 10:32 | disposition home or self-care (01) ==
LOC: HO.HPS 09:47
PROVIDERS: PCP Internal Medicine; Visit Provider Internal Medicine
DX: E66.9 Obesity, unspecified (principal); G47.33 Obstructive sleep apnea (adult) (pediatric); Z99.89 Dependence on other enabling machines and devices
CPT/HCPCS: 99213

== ENCOUNTER → 2024-06-01 09:46 | Outpatient (BNVA) | payer MEDICARE, SELFPAY | PROVIDERS: PCP Internal Medicine; Visit Provider Internal Medicine | DX: G47.33 Obstructive sleep apnea (adult) (pediatric) (principal); E66.9 Obesity, unspecified; Z99.89 Dependence on other enabling machines and devices; Z68.34 Body mass index [BMI] 34.0-34.9, adult | CPT/HCPCS: 99212 ==

== ENCOUNTER 2024-12-07 09:53 | Outpatient (AMB) | payer MEDICARE, SELFPAY ==
[2024-12-07 10:10] VITALS: BP 152/88; PULSE 70; O2SAT 97; BMI 33.5
--- NOTE | 2024-12-07 10:10 | MHC.OFFVIS ---
Vital Signs 12/07/24 10:10 Height 5 ft 11 in Weight 240 lb 4.862 oz BMI 33.5 BP 152/88 H Blood Pressure Location Lt brachial Position Sitting Pulse 70 Pulse Source Pulse Oximeter Pulse Oximetry (%) 97 Oxygen Delivery Method Room Air Intake Visit Reasons: Obstructive sleep apnea Intake Note: pt is here for follow up and using cpap every night and doing well. Water Sander Required: No Allergies animal dander Allergy (Intermediate, Verified 12/07/24 10:23) itchy eyes / runny nose metformin (METFORMIN) Allergy (Unknown, Verified 12/07/24 10:23) KIDNEY FAILURE, anaphylaxis Medication List - Last Reconciled 12/07/24 by Garcia Griffiths MD amlodipine 10 mg PO DAILY armodafinil 100 mg PO QAM aspirin 81 mg PO DAILY atorvastatin 80 mg PO BEDTIME brexpiprazole (Rexulti) 1 mg PO DAILY calcium 600 mg PO DAILY@1200 clonidine HCl 0.1 mg PO BEDTIME clopidogrel 75 mg PO DAILY gabapentin 1,200 mg PO TID@0900,1500,2000 [glucose tablets PO] losartan 100 mg PO DAILY magnesium oxide 400 mg PO DAILY@1200 [medical marihuana PO] melatonin 5 mg PO BEDTIME PRN methocarbamol 750 mg PO BID PRN metoprolol tartrate 1 tab PO BID multivitamin 1 tab PO DAILY nitroglycerin 0.4 mg sublingual Q5M omeprazole 40 mg PO BID sucralfate 1 g PO TID tamsulosin (Flomax) 0.4 mg PO BEDTIME trazodone 200 mg PO BEDTIME trospium 20 mg PO BID 30 days Do you need a note to return to daycare/school/sports/work: No HPI HPI Obstructive sleep apnea: Details: This 69 years old gentleman comes after 6 months for his routine follow-up for the CPAP. He uses CPAP very regularly every night, because without the CPAP he would not be able to sleep. Gets good sleep for at least 7 hours per night. Breathing has been okay. He is not able to lose weight because he has hard time in walking due to arthritis of the knees and back. He tries to watch his diet as much as possible. [facility] Medical History Type 2 diabetes mellitus Obesity (BMI 35.0-39.9 without comorbidity) Myoclonic disorder On beta roldan at home PTSD (post-traumatic stress disorder) Anxiety and depression White matter disease MACKENZIE on CPAP Sleep apnea Back pain Chronic renal insufficiency Myocardial infarction Neurostimulator device in situ Bleeding ulcer High cholesterol HTN (hypertension) Hypoglycemia Stroke Surgical History Status post panniculectomy History of cardiac catheterization Hx of endoscopy Hx of colonoscopy History of esophagogastroduodenoscopy (EGD) Hx of abdominal surgery Hx of gastric bypass Hx of hand surgery Hx of knee surgery History of colon surgery History of back surgery Hx of hernia repair Hx of heart artery stent Social History Are you a primary day care provider to a significant other at home: No Do you presently have visiting nurse or other home services: No Patient Tobacco Use Status: Former Tobacco user Tobacco use type: Cigarette Second Hand Smoke Exposure: No Advance Directives Date on File: 03/14/21 service: No Review of Systems Const All systems reviewed & are unremarkable except as noted in HPI and below Eyes Reports no additional complaints ENT Reports no additional complaints and Reports nasal congestion (Intermittent, mild) Card Denies chest pain, Denies irregular heart rhythm, Denies leg edema, Reports dyspnea (Mild) and Reports other (Has had angioplasty and stent placement and since then feeling better) Resp Reports cough (Mild off and on), Reports dyspnea (Mild) and Denies wheezing GI Reports heartburn (GERD being controlled with omeprazole, and sucralfate) Reports no additional complaints Musc Reports abnormal gait (Uses cane) Skin/Breast Reports system reviewed and no additional complaints, except as documented Neuro Reports abnormal gait (Uses cane) and Reports focal weakness (Has mild residual weakness of the right upper and lower extremity) Psych Reports no additional complaints Aller/Immun Denies wheezing Physical Exam Vital Signs: Last Vital Signs Pulse 70 12/07/24 10:10 BP 152/88 H 12/07/24 10:10 Pulse Ox 97 12/07/24 10:10 Oxygen Delivery Method Room Air 12/07/24 10:10 BMI result Body Mass Index 33.5 Const General: comfortable, no acute distress, alert and awake Orientation/consciousness: patient oriented x3 HEENT Head: Yes normal to inspection General nose exam: No nasal polyps present and No nasal discharge present Face and sinus: Yes sinuses nontender Mouth: oropharynx normal Throat: Yes posterior oropharynx normal Eyes General: appearance normal, both eyes and all related structures Neck Neck: Yes normal visual inspection, Yes no lymphadenopathy, Yes trachea midline and Yes no JVD Thyroid: Thyroid normal Chest Chest palpation & inspection: normal inspection of the chest, normal palpation of entire chest wall and no tenderness Resp Other: Percussion note is resonant, good breath sounds on both sides, no wheezes rhonchi or crepitations . Effort & Inspection: normal respiratory effort Auscultation: clear to auscultation bilaterally Cardio Palpation: normal PMI Rate: regular rate Rhythm: regular rhythm Heart sounds: no gallops and no murmurs GI Palpation (GI): Soft to palpation, nontender, No hepatosplenomegaly present and no masses Auscultation: normal bowel sounds Back/Spine/Pelvis Thoracic/Lumbar Spine: thoracic and lumbar spine normal to inspection and thoraco-lumbar ROM limited Skin General skin exam: no rashes or lesions noted Neuro General: patient oriented x3 and No no focal motor deficits (He does have mild weakness of the right upper and lower extremities. ) Cranial nerves: Yes CN's II-XII intact bilaterally Extrem General: Yes normal to inspection, Yes no clubbing, cyanosis or edema and Yes no calf tenderness Psych Appearance: grossly normal and well kempt Speech and movement: Normal speech and movement present Results Reviewed Results Reviewed: Compliance report is reviewed. He has used 30/30 nights, 100%. Average use it per night 7 hours 9 minutes. Pressure setting is 9 cm. There is no significant air leak and no residual MACKENZIE, residual AHI only 0.6. Assessment & Plan Assessment & Plan (1) Obesity (BMI 35.0-39.9 without comorbidity): Comment: He remains moderately obese with current BMI 33.5 States that he is not able to walk much due to his chronic back pain, He is trying to watch his diet but can not cut down eating any further. Code(s): E66.9 - Obesity, unspecified Category: Medical Plan: Again talked to him about need to cut down the calories intake. Just try to walks short distances at a time but do it more than 3 to 4 times a day. 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 The new CPAP machine working very well. He is very compliant and actually dependent on using CPAP. His compliance is excellent . Code(s): G47.33 - Obstructive sleep apnea (adult) (pediatric); Z99.89 - Dependence on other enabling machines and devices Category: Medical Plan: Commended for good compliance and advised to continue using the CPAP regularly every night. Coding Level of Care Code Est Pt Level 3 (46232) Diagnoses Obesity (BMI 35.0-39.9 without comorbidity) E66.9 MACKENZIE on CPAP G47.33; Z99.89
== END 2024-12-07 10:30 | disposition home or self-care (01) ==
LOC: HO.HPS 09:53
PROVIDERS: PCP Internal Medicine; Visit Provider Internal Medicine
DX: E66.9 Obesity, unspecified (principal); G47.33 Obstructive sleep apnea (adult) (pediatric); Z99.89 Dependence on other enabling machines and devices
CPT/HCPCS: 99213

== ENCOUNTER → 2024-12-07 09:53 | Outpatient (BNVA) | payer MEDICARE, SELFPAY | PROVIDERS: PCP Internal Medicine; Visit Provider Internal Medicine | DX: G47.33 Obstructive sleep apnea (adult) (pediatric) (principal); E66.9 Obesity, unspecified; Z99.89 Dependence on other enabling machines and devices; Z68.33 Body mass index [BMI] 33.0-33.9, adult | CPT/HCPCS: 99212 ==